=== PATIENT | female | born 1990 | race Two or more races ===

== ENCOUNTER 2016-09-20 16:49 | Emergency (ER) | payer OTHER ==
[~2016-09-20] VITALS: Ht 157.5 cm; Wt 97.7 kg
[2016-09-20] MEDS ORDERED: BENA25CA4 PO (17:12)
[2016-09-20] MEDS ORDERED: ZOFR8TAB PO (17:12)
[2016-09-20] MEDS ORDERED: REGL10TA6 PO (17:12)
[2016-09-20] MEDS ORDERED: IBUP-1022 PO (17:12)
[2016-09-20 18:15] LABS: BASO % 0.5 % (0.0-1.0); EOS # 0.1 K/mm3 (0.0-0.50); EOS % 0.8 % (0.0-3.0); LARGE UNSTAINED CELL # 0.1 K/mm3 (0.0-0.4); LARGE UNSTAINED CELL % 1.4 % (0.0-4.0); LYMPH # 2.3 K/mm3 (1.5-6.5); LYMPH % 24.7 % (24.0-44.0); MEAN CORPUSCULAR HEMOGLOBIN 29.8 pg (27.0-33.0); MEAN CORPUSCULAR HGB CONC 33.5 g/dl (32.0-36.5); MEAN CORPUSCULAR VOLUME 89.1 fl (80.0-96.0); MONO # 0.5 K/mm3 (0.0-0.8); MONO % 6.1 % (0.0-5.0); NEUTROPHILS # 5.9 K/mm3 (1.8-7.7); NEUTROPHILS % 66.5 % (36.0-66.0); PLATELET COUNT, AUTOMATED 291 k/mm3 (150-450); RED CELL DISTRIBUTION WIDTH 12.4 % (11.5-14.5); WHITE BLOOD COUNT 8.8 K/mm3 (4.0-10.0)
[2016-09-20 18:22] LABS: INR 0.85
[2016-09-20 18:41] LABS: ALBUMIN/GLOBULIN RATIO 1.03 (1.00-1.93); ALKALINE PHOSPHATASE 83 U/L (45-117); ALT/SGPT 28 U/L (12-78); ANION GAP 5 MEQ/L (8-16); AST/SGOT 18 U/L (15-37); BILIRUBIN,DIRECT < 0.1 MG/DL (0.0-0.2); BILIRUBIN,TOTAL 0.3 MG/DL (0.2-1.0); BLOOD UREA NITROGEN 7 MG/DL (7-18); CARBON DIOXIDE LEVEL 29 MEQ/L (21-32); CHLORIDE LEVEL 104 MEQ/L (98-107); CREATININE FOR GFR 0.64 MG/DL (0.55-1.02); GLOMERULAR FILTRATION RATE > 60.0 (>60); GLUCOSE, FASTING 86 MG/DL (70-105); POTASSIUM SERUM 3.9 MEQ/L (3.5-5.1); SODIUM LEVEL 138 MEQ/L (136-145); TOTAL PROTEIN 7.9 GM/DL (6.4-8.2)
--- NOTE | 2016-09-20 18:50 | REPUSA ---
HISTORY: NO PRIORS - VOMITING, EVAL FOR SHUNT DISRUPTION. TECHNIQUE: Axial CT imaging of brain without contrast. FINDINGS: Ventricular shunt tube extends to the left lateral ventricle. Over the right frontal cristina varium, there is question of a 1 mm discontinuity of shunt tubing seen on image 23. Clinical correla tion and follow-up is suggested as indicated. The ventricles and sulci are not enlarged. No intracranial mass or mass effect is seen. There is no detectable evidence of hemorrhage, acute infarct, or abnormal extra-axial fluid collection seen. IMPRESSION: 1. The ventricular shunt tube extends to the left lateral ventricle with no intracranial abnormality seen, but there is question of a possible 1 mm disruption of the superficial tubing over the right frontal scalp, calvarium region. Clinical correlation and comparison imaging, and follow- up is suggested as indicated. 2. The remainder of the non-contrast CT examination of the brain is normal.
--- NOTE | 2016-09-20 19:17 | REP ---
SHUNT SERIES: 09/20/2016: No prior study. Clinical history: Vomiting, evaluate for shunt disruption. Findings: There is a right posterior frontal sarah hole with ventriculostomy tube to the midline. It is course under the scalp over the parietal into the occipital region and down posterior lateral right neck coursing anteriorly into the anterior upper chest wall. It appears intact throughout its course. AP supine chest: The shunt tubing courses from the neck base on the right side over the chest wall towards the midline coursing into the region of the right upper quadrant. The lung maddox are well inflated and clear. Cardiomediastinal silhouette and airway were normal. Bones are intact. No free air the diaphragm. Abdomen: Single view shows the right upper quadrant course of the shunt tubing into the pelvis with extra tubing coursing from the left toward the right and ending over the iliac wing on the left. Course of the tubing shows no discontinuity there are a few pelvic phleboliths. Bones are grossly intact. Gas pattern. Limited evaluation due to motion blur. Impression: 1. Negative shunt series for disruption of the shunt from the ventriculostomy tube through the right posterior frontal sarah hole to the distal end of the tubing curved in the pelvis towards the left lower quadrant overlying the iliac bone. No acute finding. Signed by Kuldeep Ferrara MD 09/21/2016 10:49 A
[2016-09-20] MEDS ORDERED: KETOROLAC 30 MG/ML VIAL (J1885) IV ONE (19:30)
[2016-09-20] MEDS ORDERED: METOCLOPRAMIDE INJ 10MG/2ML VIAL (J2765) IV ONE (19:30)
[2016-09-20] MEDS ORDERED: NS 1,000 ML IV ONE (19:30)
[2016-09-20] MEDS ORDERED: diphenhydrAMINE INJ 50MG/ML VIAL (J1200) IV ONE (19:30)
[2016-09-20] MEDS ORDERED: MORPHINE 4 MG/ML 1ML SYRINGE IV PRN (21:45)
[2016-09-20] MEDS ORDERED: TOPIRAMATE (TopAMAX) 25 MG TAB PO ONE (21:45)
[2016-09-20 22:38] VITALS: BP 107/54
[2016-09-20] MEDS ORDERED: TOPA1TAB PO (22:46)
== END 2016-09-20 23:02 | disposition home or self-care (01) ==
LOC: M ED 16:49
DX: R51 Headache (principal); Z88.2 Allergy status to sulfonamides; Z88.8 Allergy status to other drugs, medicaments and biological substances; Z79.899 Other long term (current) drug therapy
CPT/HCPCS: 70450; 75809; 80048; 80076; 83690; 85025; 85610; 85730; 93041; 94760; 96374; 96375; 99285; J1200; J1885; J2765

== ENCOUNTER 2017-06-27 14:44 | Emergency (ER) | payer OTHER ==
[2017-06-27] MEDS: MORPHINE 4 MG/ML 1ML VIAL/SYRINGE (J2270) IV (15:56)
[2017-06-27] MEDS: ONDANSETRON 4MG/2ML VIAL (J2405) IV (15:57)
[2017-06-27 16:09] LABS: BASO # 0.1 10^3/uL (0.0-0.2); BASO % 0.6 % (0.0-1.0); EOS # 0.1 10^3/uL (0.0-0.50); EOS % 1.5 % (0.0-3.0); HEMATOCRIT 39.9 % (36.0-47.0); HEMOGLOBIN 12.9 g/dl (12.0-15.5); IMMATURE GRANULOCYTE % 0.5 % (0-3.0); LYMPH # 2.2 10^3/uL (1.5-6.5); LYMPH % 24.9 % (24.0-44.0); MEAN CORPUSCULAR HEMOGLOBIN 28.2 pg (27.0-33.0); MEAN CORPUSCULAR HGB CONC 32.3 g/dl (32.0-36.5); MEAN CORPUSCULAR VOLUME 87.1 fl (80.0-96.0); MONO # 0.7 10^3/uL (0.0-0.8); MONO % 7.6 % (0.0-5.0); NEUTROPHILS # 5.7 10^3/uL (1.8-7.7); NEUTROPHILS % 64.9 % (36.0-66.0); PLATELET COUNT, AUTOMATED 385 10^3/uL (150-450); RED BLOOD COUNT 4.58 10^6/uL (4.00-5.40); RED CELL DISTRIBUTION WIDTH 13.5 % (11.5-14.5); WHITE BLOOD COUNT 8.7 10^3/uL (4.0-10.0)
[2017-06-27 16:18] LABS: INR 0.94; PROTHROMBIN TIME 12.7 SECONDS (12.4-14.5)
[2017-06-27 16:19] LABS: PARTIAL THROMBOPLASTIN TIME 29.2 SECONDS (26.8-37.9)
[2017-06-27 16:26] LABS: ANION GAP 9 MEQ/L (8-16); BLOOD UREA NITROGEN 10 MG/DL (7-18); CALCIUM LEVEL 8.8 MG/DL (8.5-10.1); CARBON DIOXIDE LEVEL 21 MEQ/L (21-32); CHLORIDE LEVEL 112 MEQ/L (98-107); GLOMERULAR FILTRATION RATE > 60.0 (>60); GLUCOSE, FASTING 80 MG/DL (70-100); POTASSIUM SERUM 4.6 MEQ/L (3.5-5.1); SODIUM LEVEL 142 MEQ/L (136-145)
[2017-06-27] MEDS ORDERED: METOCLOPRAMIDE INJ 10MG/2ML VIAL (J2765) As Ordered (16:40)
[2017-06-27] MEDS: METOCLOPRAMIDE INJ 10MG/2ML VIAL (J2765) IV (16:51)
[2017-06-27] MEDS: KETOROLAC 30 MG/ML VIAL (J1885) IV (16:51)
[2017-06-27] MEDS: predniSONE 20 MG TAB PO (17:30)
== END 2017-06-27 17:38 | disposition home or self-care (01) ==
LOC: M ED 14:44
DX: G44.019 Episodic cluster headache, not intractable (principal); G93.2 Benign intracranial hypertension; Z98.2 Presence of cerebrospinal fluid drainage device; R56.9 Unspecified convulsions; K58.9 Irritable bowel syndrome, unspecified; F32.9 Major depressive disorder, single episode, unspecified; Z79.84 Long term (current) use of oral hypoglycemic drugs; Z79.899 Other long term (current) drug therapy; Z88.2 Allergy status to sulfonamides; Z88.8 Allergy status to other drugs, medicaments and biological substances; Z88.1 Allergy status to other antibiotic agents
CPT/HCPCS: J2270

== ENCOUNTER 2017-07-08 17:28 | Emergency (ER) | payer OTHER, SELFPAY ==
[2017-07-08] MEDS: MORPHINE 4 MG/ML 1ML VIAL/SYRINGE (J2270) IV ×3 (18:32)
[2017-07-08] MEDS: METOCLOPRAMIDE INJ 10MG/2ML VIAL (J2765) IV ×3 (18:33)
[2017-07-08] MEDS: KETOROLAC 30 MG/ML VIAL (J1885) IV ×3 (19:11)
[2017-07-08] MEDS: OXYCODONE/APAP 5MG/325MG(BULK FOR ED) 1 TABLET PO ×3 (20:36)
== END 2017-07-08 20:43 | disposition home or self-care (01) ==
LOC: M ED 17:28
DX: S09.90XA Unspecified injury of head, initial encounter (principal); R51 Headache; W01.10XA Fall on same level from slipping, tripping and stumbling with subsequent striking against unspecified object, initial encounter; Y92.9 Unspecified place or not applicable; Y93.9 Activity, unspecified; Y99.9 Unspecified external cause status; Z98.2 Presence of cerebrospinal fluid drainage device; Z79.899 Other long term (current) drug therapy; Z88.2 Allergy status to sulfonamides; Z88.8 Allergy status to other drugs, medicaments and biological substances; Z88.1 Allergy status to other antibiotic agents
CPT/HCPCS: J2270

== ENCOUNTER 2017-07-09 18:39 | Emergency (ER) | payer OTHER ==
[2017-07-09] MEDS: HYDROmorphone HCL 1 MG/ML SYRINGE (J1170) IV ×4 (19:53→23:07)
[2017-07-09] MEDS: METOCLOPRAMIDE INJ 10MG/2ML VIAL (J2765) IV ×2 (19:54→21:49)
[2017-07-09] MEDS: diphenhydrAMINE INJ 50MG/ML VIAL (J1200) IV ×2 (19:54→21:49)
[2017-07-09] MEDS: KETOROLAC 30 MG/ML VIAL (J1885) IV (19:54)
[2017-07-09 20:02] LABS: BASO % 0.4 % (0.0-1.0); EOS # 0.1 10^3/uL (0.0-0.50); HEMATOCRIT 37.2 % (36.0-47.0); IMMATURE GRANULOCYTE % 0.4 % (0-3.0); LYMPH # 2.2 10^3/uL (1.5-6.5); LYMPH % 20.8 % (24.0-44.0); MEAN CORPUSCULAR HGB CONC 32.3 g/dl (32.0-36.5); MEAN CORPUSCULAR VOLUME 86.9 fl (80.0-96.0); MONO # 0.8 10^3/uL (0.0-0.8); MONO % 7.5 % (0.0-5.0); NEUTROPHILS # 7.5 10^3/uL (1.8-7.7); NEUTROPHILS % 69.9 % (36.0-66.0); PLATELET COUNT, AUTOMATED 387 10^3/uL (150-450); RED BLOOD COUNT 4.28 10^6/uL (4.00-5.40); RED CELL DISTRIBUTION WIDTH 13.3 % (11.5-14.5); WHITE BLOOD COUNT 10.7 10^3/uL (4.0-10.0)
[2017-07-09 20:26] LABS: ANION GAP 7 MEQ/L (8-16); BLOOD UREA NITROGEN 12 MG/DL (7-18); CALCIUM LEVEL 8.7 MG/DL (8.5-10.1); CARBON DIOXIDE LEVEL 22 MEQ/L (21-32); CHLORIDE LEVEL 112 MEQ/L (98-107); CREATININE FOR GFR 0.78 MG/DL (0.55-1.30); GLOMERULAR FILTRATION RATE > 60.0 (>60); GLUCOSE, FASTING 85 MG/DL (70-100); POTASSIUM SERUM 3.7 MEQ/L (3.5-5.1); SODIUM LEVEL 141 MEQ/L (136-145)
[2017-07-09] MEDS ORDERED: HYDROmorphone HCL 1 MG/ML SYRINGE (J1170) As Ordered (21:35)
== END 2017-07-09 23:26 | disposition short-term general hospital (02) ==
LOC: M ED 18:39
DX: R51 Headache (principal); G93.2 Benign intracranial hypertension; Z98.2 Presence of cerebrospinal fluid drainage device; Z79.899 Other long term (current) drug therapy; Z88.1 Allergy status to other antibiotic agents; Z88.2 Allergy status to sulfonamides; Z88.8 Allergy status to other drugs, medicaments and biological substances
CPT/HCPCS: J1170

== ENCOUNTER 2017-07-21 15:38 | Emergency (ER) | payer OTHER ==
[2017-07-21] MEDS: NS 1,000 ML IV (16:15)
[2017-07-21] MEDS: MORPHINE 4 MG/ML 1ML VIAL/SYRINGE (J2270) IV ×2 (16:19→17:29)
[2017-07-21] MEDS: ONDANSETRON 4MG/2ML VIAL (J2405) IV (16:19)
[2017-07-21 16:25] LABS: BASO # 0.1 10^3/uL (0.0-0.2); BASO % 0.7 % (0.0-1.0); EOS # 0.2 10^3/uL (0.0-0.50); EOS % 2.2 % (0.0-3.0); HEMOGLOBIN 12.9 g/dl (12.0-15.5); IMMATURE GRANULOCYTE % 0.3 % (0-3.0); LYMPH # 2.3 10^3/uL (1.5-6.5); LYMPH % 29.3 % (24.0-44.0); MEAN CORPUSCULAR HEMOGLOBIN 27.4 pg (27.0-33.0); MEAN CORPUSCULAR HGB CONC 31.5 g/dl (32.0-36.5); MONO # 0.8 10^3/uL (0.0-0.8); MONO % 10.5 % (0.0-5.0); NEUTROPHILS # 4.4 10^3/uL (1.8-7.7); PLATELET COUNT, AUTOMATED 388 10^3/uL (150-450); RED BLOOD COUNT 4.71 10^6/uL (4.00-5.40); RED CELL DISTRIBUTION WIDTH 13.2 % (11.5-14.5); WHITE BLOOD COUNT 7.7 10^3/uL (4.0-10.0)
[2017-07-21 16:49] LABS: ALBUMIN 4.2 GM/DL (3.2-5.2); ALKALINE PHOSPHATASE 102 U/L (45-117); ALT/SGPT 29 U/L (12-78); ANION GAP 8 MEQ/L (8-16); AST/SGOT 17 U/L (7-37); BILIRUBIN,DIRECT < 0.1 MG/DL (0.0-0.2); BILIRUBIN,TOTAL 0.3 MG/DL (0.2-1.0); BLOOD UREA NITROGEN 11 MG/DL (7-18); CALCIUM LEVEL 8.7 MG/DL (8.5-10.1); CARBON DIOXIDE LEVEL 23 MEQ/L (21-32); CHLORIDE LEVEL 111 MEQ/L (98-107); CREATININE FOR GFR 0.82 MG/DL (0.55-1.30); GLOMERULAR FILTRATION RATE > 60.0 (>60); GLUCOSE, FASTING 84 MG/DL (70-100); LIPASE 249 U/L (73-393); SODIUM LEVEL 142 MEQ/L (136-145); TOTAL PROTEIN 7.7 GM/DL (6.4-8.2)
[2017-07-21] MEDS ORDERED: ISOVUE-370 76% 100ML VIAL (Q9967) As Ordered (16:53)
== END 2017-07-21 18:56 | disposition home or self-care (01) ==
LOC: M ED 15:38
DX: S39.011A Strain of muscle, fascia and tendon of abdomen, initial encounter (principal); X58.XXXA Exposure to other specified factors, initial encounter; Y92.89 Other specified places as the place of occurrence of the external cause; Z98.2 Presence of cerebrospinal fluid drainage device; G93.2 Benign intracranial hypertension; I10 Essential (primary) hypertension; R51 Headache; R56.9 Unspecified convulsions; K58.9 Irritable bowel syndrome, unspecified; E28.2 Polycystic ovarian syndrome; F32.9 Major depressive disorder, single episode, unspecified; Z88.2 Allergy status to sulfonamides; Z88.8 Allergy status to other drugs, medicaments and biological substances; Z79.84 Long term (current) use of oral hypoglycemic drugs; Z79.899 Other long term (current) drug therapy
CPT/HCPCS: J2270

== ENCOUNTER 2017-07-28 18:31 | Emergency (ER) | payer OTHER ==
[2017-07-28 18:25] LABS: KETONE, URINE AUTO RFX NEGATIVE (NEGATIVE); LEUKOCYTE ESTERASE UR AUTO RFX NEGATIVE (NEGATIVE); NITRITE, URINE AUTO RFX NEGATIVE (NEGATIVE); RBC, URINE AUTO RFX 0 /HPF (0-3); SPECIFIC GRAVITY UR AUTO RFX 1.002 (1.002-1.035); SQUAM EPITHELIAL CELL UR AURFX 1 /HPF (0-6); WBC, URINE AUTO RFX 0 /HPF (0-3)
[2017-07-28 18:32] LABS: BASO # 0.1 10^3/uL (0.0-0.2); BASO % 0.4 % (0.0-1.0); EOS % 0.3 % (0.0-3.0); HEMATOCRIT 38.6 % (36.0-47.0); HEMOGLOBIN 12.5 g/dl (12.0-15.5); IMMATURE GRANULOCYTE % 0.5 % (0-3.0); LYMPH # 4.1 10^3/uL (1.5-6.5); LYMPH % 31.7 % (24.0-44.0); MEAN CORPUSCULAR HEMOGLOBIN 27.8 pg (27.0-33.0); MEAN CORPUSCULAR HGB CONC 32.4 g/dl (32.0-36.5); MEAN CORPUSCULAR VOLUME 85.8 fl (80.0-96.0); MONO # 1.2 10^3/uL (0.0-0.8); MONO % 9.2 % (0.0-5.0); NEUTROPHILS # 7.4 10^3/uL (1.8-7.7); NEUTROPHILS % 57.9 % (36.0-66.0); PLATELET COUNT, AUTOMATED 372 10^3/uL (150-450); RED CELL DISTRIBUTION WIDTH 13.3 % (11.5-14.5); WHITE BLOOD COUNT 12.8 10^3/uL (4.0-10.0)
[2017-07-28 18:35] LABS: CONTROL LINE HCG INT CTR LINE PRESENT; HCG, SERUM QUALITATIVE NEGATIVE (NEGATIVE)
[2017-07-28 18:39] LABS: AMPHETAMINES LEVEL URINE NEGATIVE (NEGATIVE); BARBITURATES URINE NEGATIVE (NEGATIVE); BENZODIAZEPINES URINE NEGATIVE (NEGATIVE); CANNABINOIDS URINE NEGATIVE (NEGATIVE); COCAINE METABOLITE URINE NEGATIVE (NEGATIVE); METHADONE URINE NEGATIVE (NEGATIVE); OPIATES URINE NEGATIVE (NEGATIVE); PHENCYCLIDINE URINE NEGATIVE (NEGATIVE)
[2017-07-28] MEDS: KETOROLAC 30 MG/ML VIAL (J1885) IV (18:52)
[2017-07-28] MEDS: diphenhydrAMINE INJ 50MG/ML VIAL (J1200) IV (18:52)
[2017-07-28] MEDS: NS 1,000 ML IV (18:52)
[2017-07-28] MEDS: METOCLOPRAMIDE INJ 10MG/2ML VIAL (J2765) IV (18:52)
[2017-07-28] MEDS: LORazepam 2 MG/ML VIAL (J2060) IV (19:42)
[2017-07-28 20:52] LABS: ACETAMINOPHEN LEVEL < 2.0 UG/ML (10.0-30.0); ALBUMIN 3.7 GM/DL (3.2-5.2); ALBUMIN/GLOBULIN RATIO 1.19 (1.00-1.93); ALKALINE PHOSPHATASE 92 U/L (45-117); ALT/SGPT 73 U/L (12-78); ANION GAP 8 MEQ/L (8-16); AST/SGOT 31 U/L (7-37); BILIRUBIN,DIRECT < 0.1 MG/DL (0.0-0.2); BILIRUBIN,TOTAL 0.2 MG/DL (0.2-1.0); BLOOD UREA NITROGEN 13 MG/DL (7-18); CALCIUM LEVEL 8.3 MG/DL (8.5-10.1); CARBON DIOXIDE LEVEL 23 MEQ/L (21-32); CHLORIDE LEVEL 113 MEQ/L (98-107); CREATININE FOR GFR 0.76 MG/DL (0.55-1.30); ETHYL ALCOHOL (ETHANOL) < 0.003 % (0.000-0.010); GLOMERULAR FILTRATION RATE > 60.0 (>60); GLUCOSE, FASTING 77 MG/DL (70-100); POTASSIUM SERUM 3.7 MEQ/L (3.5-5.1); SALICYLATE LEVEL < 1.7 MG/DL (5.0-30.0); SODIUM LEVEL 144 MEQ/L (136-145); TOTAL PROTEIN 6.8 GM/DL (6.4-8.2)
[2017-07-28] MEDS: NORCO, ANEXSIA 5/325MG TABLET (HYDROcodone/ACETAMINOPHEN) PO (21:42)
[2017-07-28] MEDS: AUGMENTIN 875 MG TAB PO (21:42)
== END 2017-07-28 21:44 | disposition home or self-care (01) ==
LOC: M ED 18:31
DX: R51 Headache (principal); H92.09 Otalgia, unspecified ear; Z98.2 Presence of cerebrospinal fluid drainage device; Z88.2 Allergy status to sulfonamides; Z88.8 Allergy status to other drugs, medicaments and biological substances; Z79.899 Other long term (current) drug therapy; Z79.84 Long term (current) use of oral hypoglycemic drugs
CPT/HCPCS: J1200

== ENCOUNTER 2017-09-05 16:55 | Emergency (ER) | payer OTHER ==
[2017-09-05] MEDS: ONDANSETRON 4MG/2ML VIAL (J2405) IV (17:58)
[2017-09-05] MEDS: MORPHINE 4 MG/ML 1ML VIAL/SYRINGE (J2270) IV (17:58)
[2017-09-05 18:28] LABS: APPEARANCE, URINE CLEAR (CLEAR); BACTERIA, URINE AUTO 1+ (NEGATIVE); BILIRUBIN, URINE AUTO NEGATIVE (NEGATIVE); BLOOD, URINE BLOOD NEGATIVE (NEGATIVE); COLOR, URINE YELLOW (YELLOW); GLUCOSE, URINE (UA) AUTO NEGATIVE (NEGATIVE); KETONE, URINE AUTO NEGATIVE (NEGATIVE); LEUKOCYTE ESTERASE, URINE AUTO NEGATIVE (NEGATIVE); MUCUS, URINE SMALL (NEGATIVE); NITRITE, URINE AUTO NEGATIVE (NEGATIVE); PROTEIN, URINE AUTO NEGATIVE (NEGATIVE); RBC, URINE AUTO 3 /HPF (0-3); SQUAMOUS EPITHELIAL CELL UR AU 6 /HPF (0-6); UROBILINOGEN, URINE AUTO 0.2 mg/dL (0.0-2.0); WBC, URINE AUTO 2 /HPF (0-3)
[2017-09-05] MEDS: HYDROmorphone HCL 1 MG/ML SYRINGE (J1170) IV (18:51)
[2017-09-05 19:07] LABS: ALBUMIN 3.2 GM/DL (3.2-5.2); ALBUMIN/GLOBULIN RATIO 0.84 (1.00-1.93); ALKALINE PHOSPHATASE 67 U/L (45-117); ALT/SGPT 42 U/L (12-78); ANION GAP 10 MEQ/L (8-16); AST/SGOT 22 U/L (7-37); BILIRUBIN,DIRECT < 0.1 MG/DL (0.0-0.2); BILIRUBIN,TOTAL 0.2 MG/DL (0.2-1.0); BLOOD UREA NITROGEN 12 MG/DL (7-18); C REACTIVE PROTEIN QUANTITATIV 0.48 MG/DL (0.00-0.30); CALCIUM LEVEL 8.4 MG/DL (8.5-10.1); CARBON DIOXIDE LEVEL 21 MEQ/L (21-32); CHLORIDE LEVEL 108 MEQ/L (98-107); CREATININE FOR GFR 0.77 MG/DL (0.55-1.30); GLOMERULAR FILTRATION RATE > 60.0 (>60); GLUCOSE, FASTING 83 MG/DL (70-100); LIPASE 182 U/L (73-393); SODIUM LEVEL 139 MEQ/L (136-145)
[2017-09-05 19:18] LABS: BASO # 0.1 10^3/uL (0.0-0.2); BASO % 0.7 % (0.0-1.0); EOS # 0.1 10^3/uL (0.0-0.50); EOS % 1.7 % (0.0-3.0); HEMATOCRIT 35.2 % (36.0-47.0); HEMOGLOBIN 11.2 g/dl (12.0-15.5); IMMATURE GRANULOCYTE % 0.4 % (0-3.0); LYMPH # 2.5 10^3/uL (1.5-6.5); MEAN CORPUSCULAR HEMOGLOBIN 27.3 pg (27.0-33.0); MEAN CORPUSCULAR HGB CONC 31.8 g/dl (32.0-36.5); MEAN CORPUSCULAR VOLUME 85.6 fl (80.0-96.0); MONO % 11.2 % (0.0-5.0); NEUTROPHILS # 4.8 10^3/uL (1.8-7.7); PLATELET COUNT, AUTOMATED 341 10^3/uL (150-450); RED BLOOD COUNT 4.11 10^6/uL (4.00-5.40); RED CELL DISTRIBUTION WIDTH 13.4 % (11.5-14.5); WHITE BLOOD COUNT 8.5 10^3/uL (4.0-10.0)
[2017-09-05] MEDS: KETOROLAC 30 MG/ML VIAL (J1885) IV (19:32)
[2017-09-05] MEDS: METOCLOPRAMIDE INJ 10MG/2ML VIAL (J2765) IV (20:02)
[2017-09-05] MEDS: diphenhydrAMINE INJ 50MG/ML VIAL (J1200) IV (20:02)
== END 2017-09-05 21:14 | disposition home or self-care (01) ==
LOC: M ED 16:55
DX: R51 Headache (principal); R10.11 Right upper quadrant pain; R10.31 Right lower quadrant pain; Z98.2 Presence of cerebrospinal fluid drainage device; G40.909 Epilepsy, unspecified, not intractable, without status epilepticus; E28.2 Polycystic ovarian syndrome; F41.9 Anxiety disorder, unspecified; F32.9 Major depressive disorder, single episode, unspecified; K58.9 Irritable bowel syndrome, unspecified; Z88.2 Allergy status to sulfonamides; Z88.8 Allergy status to other drugs, medicaments and biological substances; Z79.899 Other long term (current) drug therapy; Z79.84 Long term (current) use of oral hypoglycemic drugs
CPT/HCPCS: J1170

== ENCOUNTER 2017-09-08 13:26 | Emergency (ER) | payer OTHER ==
[2017-09-08] MEDS: NS 1,000 ML IV ×2 (14:28)
[2017-09-08] MEDS: MORPHINE 2 MG/ML 1ML SYRINGE (J2270) IV ×2 (14:29)
[2017-09-08 14:35] LABS: BASO # 0.1 10^3/uL (0.0-0.2); BASO % 0.6 % (0.0-1.0); EOS # 0.1 10^3/uL (0.0-0.50); EOS % 1.1 % (0.0-3.0); HEMOGLOBIN 11.4 g/dl (12.0-15.5); IMMATURE GRANULOCYTE % 0.3 % (0-3.0); LYMPH # 3.4 10^3/uL (1.5-6.5); LYMPH % 35.8 % (24.0-44.0); MEAN CORPUSCULAR HEMOGLOBIN 27.3 pg (27.0-33.0); MEAN CORPUSCULAR HGB CONC 31.7 g/dl (32.0-36.5); MEAN CORPUSCULAR VOLUME 86.1 fl (80.0-96.0); MONO % 10.3 % (0.0-5.0); NEUTROPHILS # 4.9 10^3/uL (1.8-7.7); NEUTROPHILS % 51.9 % (36.0-66.0); PLATELET COUNT, AUTOMATED 378 10^3/uL (150-450); RED BLOOD COUNT 4.18 10^6/uL (4.00-5.40); RED CELL DISTRIBUTION WIDTH 13.6 % (11.5-14.5); WHITE BLOOD COUNT 9.4 10^3/uL (4.0-10.0)
[2017-09-08 14:50] LABS: CONTROL LINE HCG INT CTR LINE PRESENT; HCG, SERUM QUALITATIVE NEGATIVE (NEGATIVE)
[2017-09-08 14:51] LABS: ANION GAP 7 MEQ/L (8-16); BLOOD UREA NITROGEN 10 MG/DL (7-18); C REACTIVE PROTEIN QUANTITATIV 0.32 MG/DL (0.00-0.30); CALCIUM LEVEL 8.3 MG/DL (8.5-10.1); CARBON DIOXIDE LEVEL 22 MEQ/L (21-32); CHLORIDE LEVEL 111 MEQ/L (98-107); CREATININE FOR GFR 0.81 MG/DL (0.55-1.30); GLOMERULAR FILTRATION RATE > 60.0 (>60); GLUCOSE, FASTING 84 MG/DL (70-100); POTASSIUM SERUM 3.6 MEQ/L (3.5-5.1); SODIUM LEVEL 140 MEQ/L (136-145)
[2017-09-08] MEDS: ONDANSETRON 4MG/2ML VIAL (J2405) IV ×2 (15:18)
[2017-09-08] MEDS: HYDROMORPHONE HCL 0.5 MG/ 0.5 ML SYRINGE (J1170 PER 1) IV ×2 (15:20)
== END 2017-09-08 16:00 | disposition home or self-care (01) ==
LOC: M ED 13:26
DX: G89.18 Other acute postprocedural pain (principal); E28.2 Polycystic ovarian syndrome; G93.2 Benign intracranial hypertension; Z79.899 Other long term (current) drug therapy; Z88.2 Allergy status to sulfonamides; Z88.8 Allergy status to other drugs, medicaments and biological substances
CPT/HCPCS: J2405

== ENCOUNTER 2017-09-16 00:22 | Emergency (ER) | payer OTHER ==
[2017-09-16] MEDS: NS 1,000 ML IV (01:15)
[2017-09-16] MEDS: ONDANSETRON 4MG/2ML VIAL (J2405) IV (02:00)
[2017-09-16] MEDS ORDERED: METAL LOCK LOOP XX (02:09)
[2017-09-16] MEDS: MORPHINE 4 MG/ML 1ML VIAL/SYRINGE (J2270) IV ×3 (02:10→04:18)
[2017-09-16 02:31] LABS: BASO % 0.5 % (0.0-1.0); EOS # 0.2 10^3/uL (0.0-0.50); HEMATOCRIT 39.1 % (36.0-47.0); HEMOGLOBIN 12.4 g/dl (12.0-15.5); IMMATURE GRANULOCYTE % 0.3 % (0-3.0); LYMPH # 3.1 10^3/uL (1.5-6.5); MEAN CORPUSCULAR HEMOGLOBIN 27.1 pg (27.0-33.0); MEAN CORPUSCULAR HGB CONC 31.7 g/dl (32.0-36.5); MEAN CORPUSCULAR VOLUME 85.4 fl (80.0-96.0); MONO # 0.7 10^3/uL (0.0-0.8); NEUTROPHILS # 4.8 10^3/uL (1.8-7.7); NEUTROPHILS % 54.2 % (36.0-66.0); PLATELET COUNT, AUTOMATED 451 10^3/uL (150-450); RED BLOOD COUNT 4.58 10^6/uL (4.00-5.40); RED CELL DISTRIBUTION WIDTH 13.8 % (11.5-14.5); WHITE BLOOD COUNT 8.8 10^3/uL (4.0-10.0)
[2017-09-16 02:55] LABS: CONTROL LINE HCG INT CTR LINE PRESENT; HCG, SERUM QUALITATIVE NEGATIVE (NEGATIVE)
[2017-09-16] MEDS ORDERED: ISOVUE-370 76% 100ML VIAL (Q9967) As Ordered (02:56)
[2017-09-16 02:58] LABS: ALBUMIN/GLOBULIN RATIO 1.14 (1.00-1.93); ALKALINE PHOSPHATASE 80 U/L (45-117); ALT/SGPT 36 U/L (12-78); ANION GAP 9 MEQ/L (8-16); AST/SGOT 20 U/L (7-37); BILIRUBIN,DIRECT < 0.1 MG/DL (0.0-0.2); BILIRUBIN,TOTAL 0.2 MG/DL (0.2-1.0); BLOOD UREA NITROGEN 13 MG/DL (7-18); CALCIUM LEVEL 8.6 MG/DL (8.5-10.1); CARBON DIOXIDE LEVEL 23 MEQ/L (21-32); CHLORIDE LEVEL 109 MEQ/L (98-107); CREATININE FOR GFR 0.81 MG/DL (0.55-1.30); GLOMERULAR FILTRATION RATE > 60.0 (>60); GLUCOSE, FASTING 86 MG/DL (70-100); LIPASE 328 U/L (73-393); SODIUM LEVEL 141 MEQ/L (136-145); TOTAL PROTEIN 7.5 GM/DL (6.4-8.2)
[2017-09-16] MEDS: METOCLOPRAMIDE 10 MG TAB PO (06:21)
[2017-09-16] MEDS: OXYCODONE/APAP 5MG/325MG(BULK FOR ED) 1 TABLET PO (06:21)
== END 2017-09-16 06:26 | disposition home or self-care (01) ==
LOC: M ED 00:22
DX: R10.9 Unspecified abdominal pain (principal); Z98.890 Other specified postprocedural states; G93.2 Benign intracranial hypertension; Z98.2 Presence of cerebrospinal fluid drainage device; Z79.899 Other long term (current) drug therapy; Z88.1 Allergy status to other antibiotic agents; Z88.2 Allergy status to sulfonamides; Z88.8 Allergy status to other drugs, medicaments and biological substances
CPT/HCPCS: J2270

== ENCOUNTER 2017-09-19 16:59 | Emergency (ER) | payer OTHER ==
[2017-09-19 19:53] LABS: BASO # 0.1 10^3/uL (0.0-0.2); BASO % 0.6 % (0.0-1.0); EOS # 0.1 10^3/uL (0.0-0.50); EOS % 0.9 % (0.0-3.0); HEMOGLOBIN 12.2 g/dl (12.0-15.5); IMMATURE GRANULOCYTE % 0.4 % (0-3.0); LYMPH % 22.2 % (24.0-44.0); MEAN CORPUSCULAR HEMOGLOBIN 27.3 pg (27.0-33.0); MEAN CORPUSCULAR HGB CONC 32.1 g/dl (32.0-36.5); MONO # 0.5 10^3/uL (0.0-0.8); MONO % 5.8 % (0.0-5.0); NEUTROPHILS # 6.3 10^3/uL (1.8-7.7); NEUTROPHILS % 70.1 % (36.0-66.0); PLATELET COUNT, AUTOMATED 422 10^3/uL (150-450); RED BLOOD COUNT 4.47 10^6/uL (4.00-5.40); RED CELL DISTRIBUTION WIDTH 13.8 % (11.5-14.5)
[2017-09-19] MEDS: TRIMETHOBENZAMIDE HCL INJ 200 MG/2 ML VIAL (J3250) IM (19:55)
[2017-09-19] MEDS: KETOROLAC 30 MG/ML VIAL (J1885) IV (19:55)
[2017-09-19 19:58] LABS: APPEARANCE, URINE HAZY (CLEAR); BACTERIA, URINE AUTO NEGATIVE (NEGATIVE); BILIRUBIN, URINE AUTO NEGATIVE (NEGATIVE); BLOOD, URINE BLOOD NEGATIVE (NEGATIVE); CALCIUM OXALATE CRYSTALS LARGE; COLOR, URINE YELLOW (YELLOW); GLUCOSE, URINE (UA) AUTO NEGATIVE (NEGATIVE); KETONE, URINE AUTO NEGATIVE (NEGATIVE); LEUKOCYTE ESTERASE, URINE AUTO NEGATIVE (NEGATIVE); MUCUS, URINE SMALL (NEGATIVE); NITRITE, URINE AUTO NEGATIVE (NEGATIVE); PROTEIN, URINE AUTO NEGATIVE (NEGATIVE); RBC, URINE AUTO 1 /HPF (0-3); SPECIFIC GRAVITY URINE AUTO 1.026 (1.002-1.035); SQUAMOUS EPITHELIAL CELL UR AU 3 /HPF (0-6); UROBILINOGEN, URINE AUTO 0.2 mg/dL (0.0-2.0); WBC, URINE AUTO 11 /HPF (0-3)
[2017-09-19 20:47] LABS: ANION GAP 5 MEQ/L (8-16); BLOOD UREA NITROGEN 17 MG/DL (7-18); CALCIUM LEVEL 8.5 MG/DL (8.5-10.1); CARBON DIOXIDE LEVEL 25 MEQ/L (21-32); CHLORIDE LEVEL 110 MEQ/L (98-107); CREATININE FOR GFR 0.81 MG/DL (0.55-1.30); GLOMERULAR FILTRATION RATE > 60.0 (>60); GLUCOSE, FASTING 85 MG/DL (70-100); SODIUM LEVEL 140 MEQ/L (136-145)
[2017-09-19] MEDS: PERCOCET 5MG/325MG TAB PO (21:10)
== END 2017-09-19 21:18 | disposition home or self-care (01) ==
LOC: M ED 16:59
DX: R10.84 Generalized abdominal pain (principal); R11.2 Nausea with vomiting, unspecified; R56.9 Unspecified convulsions; Z98.2 Presence of cerebrospinal fluid drainage device; Z79.899 Other long term (current) drug therapy; Z88.1 Allergy status to other antibiotic agents; Z88.2 Allergy status to sulfonamides; Z88.8 Allergy status to other drugs, medicaments and biological substances
CPT/HCPCS: J1885

== ENCOUNTER 2017-10-29 15:29 | Emergency (ER) | payer OTHER ==
[2017-10-29 16:50] LABS: BASO # 0.1 10^3/uL (0.0-0.2); BASO % 0.6 % (0.0-1.0); EOS # 0.1 10^3/uL (0.0-0.50); HEMATOCRIT 38.8 % (36.0-47.0); HEMOGLOBIN 12.5 g/dl (12.0-15.5); IMMATURE GRANULOCYTE % 0.2 % (0-3.0); LYMPH # 1.7 10^3/uL (1.5-6.5); LYMPH % 20.4 % (24.0-44.0); MEAN CORPUSCULAR HEMOGLOBIN 28.1 pg (27.0-33.0); MEAN CORPUSCULAR HGB CONC 32.2 g/dl (32.0-36.5); MEAN CORPUSCULAR VOLUME 87.2 fl (80.0-96.0); MONO # 0.7 10^3/uL (0.0-0.8); MONO % 8.1 % (0.0-5.0); NEUTROPHILS # 5.8 10^3/uL (1.8-7.7); NEUTROPHILS % 69.7 % (36.0-66.0); PLATELET COUNT, AUTOMATED 416 10^3/uL (150-450); RED BLOOD COUNT 4.45 10^6/uL (4.00-5.40); RED CELL DISTRIBUTION WIDTH 14.6 % (11.5-14.5); WHITE BLOOD COUNT 8.3 10^3/uL (4.0-10.0)
[2017-10-29] MEDS: NS 1,000 ML IV (16:56)
[2017-10-29] MEDS: METOCLOPRAMIDE INJ 10MG/2ML VIAL (J2765) IV (16:56)
[2017-10-29] MEDS: KETOROLAC 30 MG/ML VIAL (J1885) IV (16:57)
[2017-10-29 17:18] LABS: ALBUMIN/GLOBULIN RATIO 1.14 (1.00-1.93); ALKALINE PHOSPHATASE 67 U/L (45-117); ALT/SGPT 43 U/L (12-78); ANION GAP 8 MEQ/L (8-16); AST/SGOT 16 U/L (7-37); BILIRUBIN,DIRECT < 0.1 MG/DL (0.0-0.2); BILIRUBIN,TOTAL 0.2 MG/DL (0.2-1.0); BLOOD UREA NITROGEN 9 MG/DL (7-18); CALCIUM LEVEL 9.1 MG/DL (8.5-10.1); CARBON DIOXIDE LEVEL 24 MEQ/L (21-32); CHLORIDE LEVEL 110 MEQ/L (98-107); CREATININE FOR GFR 0.86 MG/DL (0.55-1.30); GLOMERULAR FILTRATION RATE > 60.0 (>60); GLUCOSE, FASTING 88 MG/DL (70-100); LIPASE 422 U/L (73-393); POTASSIUM SERUM 4.1 MEQ/L (3.5-5.1); SODIUM LEVEL 142 MEQ/L (136-145); TOTAL PROTEIN 7.5 GM/DL (6.4-8.2)
== END 2017-10-29 17:45 | disposition home or self-care (01) ==
LOC: M ED 15:29
DX: R10.84 Generalized abdominal pain (principal); K58.9 Irritable bowel syndrome, unspecified; Z79.899 Other long term (current) drug therapy; Z88.2 Allergy status to sulfonamides; Z88.1 Allergy status to other antibiotic agents; Z88.8 Allergy status to other drugs, medicaments and biological substances
CPT/HCPCS: J1885

== ENCOUNTER → 2018-01-05 | Outpatient (CLI) | payer OTHER | LOC: M RAD 08:01 | DX: G93.2 Benign intracranial hypertension (principal); Z98.2 Presence of cerebrospinal fluid drainage device | CPT/HCPCS: 70551 ==

== ENCOUNTER → 2018-01-14 | Outpatient (REF) | payer OTHER ==
[2018-01-14 11:56] LABS: BASO % 0.8 % (0.0-1.0); EOS # 0.1 10^3/uL (0.0-0.50); EOS % 1.5 % (0.0-3.0); HEMATOCRIT 38.3 % (36.0-47.0); HEMOGLOBIN 11.9 g/dl (12.0-15.5); IMMATURE GRANULOCYTE % 0.2 % (0-3.0); LYMPH # 1.6 10^3/uL (1.5-6.5); LYMPH % 32.2 % (24.0-44.0); MEAN CORPUSCULAR HEMOGLOBIN 27.9 pg (27.0-33.0); MEAN CORPUSCULAR HGB CONC 31.1 g/dl (32.0-36.5); MEAN CORPUSCULAR VOLUME 89.9 fl (80.0-96.0); MONO # 0.4 10^3/uL (0.0-0.8); MONO % 7.7 % (0.0-5.0); NEUTROPHILS # 2.8 10^3/uL (1.8-7.7); NEUTROPHILS % 57.6 % (36.0-66.0); PLATELET COUNT, AUTOMATED 451 10^3/uL (150-450); RED BLOOD COUNT 4.26 10^6/uL (4.00-5.40); RED CELL DISTRIBUTION WIDTH 14.2 % (11.5-14.5); WHITE BLOOD COUNT 4.8 10^3/uL (4.0-10.0)
[2018-01-14 12:28] LABS: ALBUMIN 3.7 GM/DL (3.2-5.2); ALBUMIN/GLOBULIN RATIO 1.03 (1.00-1.93); ALKALINE PHOSPHATASE 74 U/L (45-117); ALT/SGPT 25 U/L (12-78); ANION GAP 9 MEQ/L (8-16); AST/SGOT 17 U/L (7-37); BILIRUBIN,TOTAL 0.2 MG/DL (0.2-1.0); BLOOD UREA NITROGEN 9 MG/DL (7-18); C REACTIVE PROTEIN QUANTITATIV < 0.30 MG/DL (0.00-0.30); CALCIUM LEVEL 8.8 MG/DL (8.5-10.1); CARBON DIOXIDE LEVEL 24 MEQ/L (21-32); CHLORIDE LEVEL 107 MEQ/L (98-107); CREATININE FOR GFR 0.71 MG/DL (0.55-1.30); GLOMERULAR FILTRATION RATE > 60.0 (>60); GLUCOSE, FASTING 93 MG/DL (70-100); POTASSIUM SERUM 4.4 MEQ/L (3.5-5.1); SODIUM LEVEL 140 MEQ/L (136-145); TOTAL PROTEIN 7.3 GM/DL (6.4-8.2)
[2018-01-14 12:41] LABS: ERYTHROCYTE SEDIMENTATION RATE 11 mm/hr (0-20)
== END ==
LOC: M SFHCPLAZ 10:20
DX: R50.9 Fever, unspecified (principal)

== ENCOUNTER → 2018-01-29 | Outpatient (CLI) | payer OTHER ==
[~2018-01-29] MED LIST: GASTROGRAFIN SOLUTION 30ML (Q9963) As Ordered; ISOVUE-370 76% 100ML VIAL (Q9967) As Ordered
== END ==
LOC: M RAD 14:22
DX: R50.9 Fever, unspecified (principal); N83.202 Unspecified ovarian cyst, left side; T85.698A Other mechanical complication of other specified internal prosthetic devices, implants and grafts, initial encounter; Y84.9 Medical procedure, unspecified as the cause of abnormal reaction of the patient, or of later complication, without mention of misadventure at the time of the procedure
CPT/HCPCS: Q9963

== ENCOUNTER 2018-02-09 14:56 | Emergency (ER) | payer OTHER ==
[2018-02-09] MEDS: PROMETHAZINE INJ 25 MG/ML VIAL (J2550) IM (16:24)
[2018-02-09] MEDS: ACETAMINOPHEN TAB 650MG DOSE (2X325MG) PO (16:45)
[2018-02-09] MEDS: ONDANSETRON 4 MG ORAL DISINTEGRATING TAB (Q0162 PER 1MG) PO (17:42)
[2018-02-09] MEDS: PERCOCET 5MG/325MG TAB PO (17:42)
== END 2018-02-09 18:00 | disposition home or self-care (01) ==
LOC: M ED 14:56
DX: S00.93XA Contusion of unspecified part of head, initial encounter (principal); W19.XXXA Unspecified fall, initial encounter; Y92.099 Unspecified place in other non-institutional residence as the place of occurrence of the external cause; Y93.9 Activity, unspecified; Y99.9 Unspecified external cause status; Z98.2 Presence of cerebrospinal fluid drainage device; Z79.899 Other long term (current) drug therapy; Z88.2 Allergy status to sulfonamides; Z88.1 Allergy status to other antibiotic agents; Z88.8 Allergy status to other drugs, medicaments and biological substances
CPT/HCPCS: Q0162

== ENCOUNTER → 2018-02-21 | Outpatient (CLI) | payer OTHER ==
[~2018-02-21] MED LIST changes: +ACET30TAB PO; +ASAC800T3 PO; +AUGM875T28 PO; +BENA25CA4 PO; +BUSP5TA; +CIPR500T19 PO; +CIPR5SUS PO; +CLIN150C14 PO; +CYCL10TA; +FLUO20CA19 PO; +GABA-845 PO; -GASTROGRAFIN SOLUTION 30ML (Q9963) As Ordered; +HYDR50TA70 PO; +IBUP-1022 PO; +IBUP200T45; -ISOVUE-370 76% 100ML VIAL (Q9967) As Ordered; +KETO10TAB PO; +METF750T PO; +MIDAZOLAM INJ 2 MG/2 ML VIAL (J2250) As Ordered ONE; +NORC1TAB4 PO; +NORC7.5T35 PO; +NORCOTAB PO; +PRED20TA PO; +PROZ40CA; +PROZ40CA PO; +REGL10TA6 PO; +TIGA300C2 PO; +TOPA100T12 PO; +TOPA1TAB PO; +TOPA200T7 PO; +TOPI100T9 PO; +ZOFR8TAB24 PO; +[UNRECOGNIZED DRUG - MIXTURE] PO; +fentaNYL 100 MCG/2 ML INJECTION (J3010) As Ordered ONE
[2018-02-21 13:23] LABS: CSF TUBE# GLU TUBE 3; CSF TUBE# TP TUBE 3; GLUCOSE CSF 50 MG/DL (40-75); TOTAL PROTEIN,CSF 80 MG/DL (15-45)
[2018-02-21 13:28] LABS: APPEARANCE, CSF CLEAR (CLEAR); COLOR, CSF COLORLESS (COLORLESS); CSF TUBE# CELL CNT TUBE 4
[2018-02-21 15:00] VITALS: BP 139/90
--- NOTE | 2018-02-21 16:31 | REP ---
Procedure: Fluoro guidance for lumbar puncture. History: Fever, Pseudotumor Cerebri The procedure was performed under the direct supervision of Dr. Birmingham. The procedure was performed with anesthesia present for sedation and pain control. The risks and benefits of the procedure were explained to the patient and informed consent was obtained. The L3-4 interspace was localized using fluoroscopic guidance. The skin was prepped and draped in a sterile fashion. 1% lidocaine was used as a local anesthetic. Using fluoroscopic guidance a 22-gauge spinal needle was inserted and advanced into the thecal sac. Opening pressure measured 20 cm of water. 12 ml of spinal fluid was withdrawn and sent to lab. The patient tolerated the procedure well and there were no immediate complications. 0.1 minutes of fluoro time was utilized for this procedure. Reviewed by SALOMÓN St 02/21/2018 04:07 P Electronically Signed by Maxwell Birmingham MD 02/21/2018 04:23 P
[2018-02-26 00:06] LABS: CRYPTOCOCCUS ANTIGEN CSF Negative (Negative); MYELIN BASIC PROTEIN, CSF 5.4 ng/mL (0.0-1.2)
== END ==
LOC: M RADPRO 11:03
PROVIDERS: ATTEND Internal Medicine Infectious Disease
DX: R50.9 Fever, unspecified (principal); G93.2 Benign intracranial hypertension; Z98.2 Presence of cerebrospinal fluid drainage device; A09 Infectious gastroenteritis and colitis, unspecified; Z79.84 Long term (current) use of oral hypoglycemic drugs; Z79.899 Other long term (current) drug therapy; Z88.8 Allergy status to other drugs, medicaments and biological substances; Z88.2 Allergy status to sulfonamides; Z88.1 Allergy status to other antibiotic agents; Z98.890 Other specified postprocedural states
CPT/HCPCS: 62270; 77002; 82945; 83873; 84157; 86592; 87070; 87102; 87116; 87205; 87206; 87483; 87899; 89051; 99156; 99157; J2250; J3010

== ENCOUNTER 2018-03-28 01:54 | Emergency (ER) | payer OTHER ==
[~2018-03-28] VITALS: Ht 157.5 cm; Wt 100.0 kg
[~2018-03-28 01:54] MED LIST changes: -MIDAZOLAM INJ 2 MG/2 ML VIAL (J2250) As Ordered ONE; -fentaNYL 100 MCG/2 ML INJECTION (J3010) As Ordered ONE
[2018-03-28] MEDS ORDERED: MAGN400T (02:04)
[2018-03-28] MEDS ORDERED: PROM25TA22 (02:04)
[2018-03-28] MEDS ORDERED: AMIT10TA (02:04)
[2018-03-28] MEDS ORDERED: TRAZ-160 (02:04)
[2018-03-28] MEDS ORDERED: NS 1,000 ML IV SCH (02:30)
[2018-03-28] MEDS ORDERED: METOCLOPRAMIDE INJ 10MG/2ML VIAL (J2765) IV ONE (02:30)
[2018-03-28 02:53] LABS: BASO # 0.1 10^3/uL (0.0-0.2); BASO % 0.7 % (0.0-1.0); EOS # 0.2 10^3/uL (0.0-0.50); EOS % 2.4 % (0.0-3.0); HEMATOCRIT 41.8 % (36.0-47.0); HEMOGLOBIN 13.1 g/dl (12.0-15.5); LYMPH # 2.9 10^3/uL (1.5-6.5); LYMPH % 40.3 % (24.0-44.0); MEAN CORPUSCULAR HGB CONC 31.3 g/dl (32.0-36.5); MEAN CORPUSCULAR VOLUME 92.7 fl (80.0-96.0); MONO # 0.6 10^3/uL (0.0-0.8); MONO % 8.4 % (0.0-5.0); NEUTROPHILS # 3.4 10^3/uL (1.8-7.7); NEUTROPHILS % 47.8 % (36.0-66.0); PLATELET COUNT, AUTOMATED 321 10^3/uL (150-450); RED BLOOD COUNT 4.51 10^6/uL (4.00-5.40); WHITE BLOOD COUNT 7.2 10^3/uL (4.0-10.0)
[2018-03-28 03:15] LABS: ALT/SGPT 42 U/L (12-78); BILIRUBIN,DIRECT < 0.1 MG/DL (0.0-0.2); BILIRUBIN,TOTAL 0.2 MG/DL (0.2-1.0); BLOOD UREA NITROGEN 12 MG/DL (7-18); CALCIUM LEVEL 8.6 MG/DL (8.5-10.1); CARBON DIOXIDE LEVEL 22 MEQ/L (21-32); CHLORIDE LEVEL 106 MEQ/L (98-107); CREATININE FOR GFR 0.73 MG/DL (0.55-1.30); GLOMERULAR FILTRATION RATE > 60.0 (>60); GLUCOSE, FASTING 86 MG/DL (70-100); LIPASE 270 U/L (73-393); POTASSIUM SERUM 3.5 MEQ/L (3.5-5.1); SODIUM LEVEL 141 MEQ/L (136-145); TOTAL PROTEIN 7.4 GM/DL (6.4-8.2)
[2018-03-28 03:17] LABS: HCG, SERUM QUALITATIVE NEGATIVE (NEGATIVE)
[2018-03-28] MEDS ORDERED: KETOROLAC 30 MG/ML VIAL (J1885) IV ONE (03:30)
--- NOTE | 2018-03-28 03:32 | REPVR ---
EXAM: CT Head Without Contrast EXAM DATE/TIME: 03/28/18 (2:29am) CLINICAL HISTORY: 27 year old female with headache, pain. V-P shunt. TECHNIQUE: Axial computed tomography images of the head without contrast. All CT scans at this facility use at least one of these dose optimization techniques: automated exposure control; mA and/or kV adjustment per patient size (includes targeted exams where dose is matched to clinical indication); or iterative reconstruction. COMPARISON: CT HEAD of 02/09/18 FINDINGS: Brain: No acute hemorrhage. No significant white matter disease. No cerebral edema. V-P shunt tube again seen, entering via the right frontal region. Tip of the shunt tube lies to the left of the left frontal horn of the lateral ventricle (unchanged position). Ventricles: No ventriculomegaly. No change from 6 weeks ago. Bones/joints: Normal. No acute fracture. Sinuses: Normal as visualized. No acute sinusitis. Mastoid air cells: Normal as visualized. No mastoid effusion. Soft tissues: Normal. IMPRESSION: No acute intracranial pathology is appreciated. Stable position of V-P shunt tube. No hydrocephalus. In general, similar findings were noted 6 weeks ago. Electronically signed by: Kaye Judge On 03/28/2018 03:31:49 AM
[2018-03-28 03:51] VITALS: BP 124/76
--- NOTE | 2018-03-28 04:07 | REPVR ---
EXAM: XR Skull, Less Than 4 Views EXAM DATE/TIME: 03/28/18 (3:41am) CLINICAL HISTORY: 27 year old female with pain, headache. V-P shunt tube. TECHNIQUE: XR of the skull, less than 4 views COMPARISON: CT Head of03/28/18 FINDINGS: Sinuses: Well aerated. No opacification. Bones/joints: No fracture. Soft tissues: Unremarkable. Other findings: A V-P shunt tube enters the brain via a right frontal approach. The shunt tube appears intact. The tube courses along the right side of the neck and projects over the medial portion of the right upper chest. IMPRESSION: No acute pathology. A right-sided shunt tube is seen, and appears intact. EXAM: XR Soft Tissue Neck EXAM DATE/TIME: 03/28/18 (3:41am) CLINICAL HISTORY: 27 year old female. Headache, pain. V-P shunt tube. TECHNIQUE: XR of the soft tissues of the neck. COMPARISON: CT Head of 03/28/18 FINDINGS: Airway: Normal. No abnormal narrowing. Soft tissues: Normal. Normal epiglottis. Bones/joints: Normal for age. Other findings: A right-sided V-P shunt tube is seen, coursing over the right side of the neck and the medial portion of the right upper chest. The tubing appears intact. IMPRESSION: No acute findings. Intact right-sided V-P shunt tube. EXAM: XR Chest, 1 View EXAM DATE/TIME: 03/28/18 (3:41am) CLINICAL HISTORY: 27 year old female. Headache, pain. V-P shunt tube. TECHNIQUE: XR of the chest, 1 view COMPARISON: No pertinent studies for comparison FINDINGS: Lungs: Unremarkable. No consolidation. Pleural space: Unremarkable. No pleural effusions. No pneumothorax. Heart/Mediastinum: Unremarkable. No cardiomegaly. Bones/joints: Unremarkable. Soft tissues: Prominent breast shadows. A V-P shunt tube is faintly seen, coursing over the right lower neck region, the medial portion of the right hemithorax, projecting over the lower thoracic spine, and coursing to the right abdomen. The shunt tubing appears intact. IMPRESSION: No acute findings. A V-P shunt tube is visualized and its visualized portions appears intact. See comments above. EXAM: XR Abdomen, 1 View EXAM DATE/TIME: 03/28/18 (3:41am) CLINICAL HISTORY: 27 year old female. Headache, pain. V-P shunt tube. TECHNIQUE: Frontal supine view of the abdomen/pelvis COMPARISON: Frontal CXR of 03/28/18 FINDINGS: The bowel gas pattern is nonspecific and non-obstructed. Some fecal matter is present in the right colon and proximal transverse colon. A right-sided V-P shunt tube is seen, projecting over the lower thoracic spine, and coursing to the right abdomen. The distal tip of the tube lies in the LLQ area. Monitor leads / electrodes project over the abdomen. The shunt tubing appears intact. IMPRESSION: No acute findings. A GASOLINE FINISHER shunt tube is seen, with its distal tip in the LLQ area. The visualized tubing appears intact. Electronically signed by: Kaye Judge On 03/28/2018 04:07:43 AM
== END 2018-03-28 04:40 | disposition home or self-care (01) ==
LOC: M ED 01:54
DX: R51 Headache (principal); G93.2 Benign intracranial hypertension; E28.2 Polycystic ovarian syndrome; Z98.2 Presence of cerebrospinal fluid drainage device; Z79.899 Other long term (current) drug therapy; Z88.1 Allergy status to other antibiotic agents; Z88.2 Allergy status to sulfonamides; Z88.8 Allergy status to other drugs, medicaments and biological substances
CPT/HCPCS: 70450; 75809; 80048; 80076; 83690; 84703; 85025; 96374; 96375; 99284; J1885; J2765

== ENCOUNTER 2018-07-23 14:39 | Inpatient (IN) | payer OTHER ==
[~2018-07-23] VITALS: Ht 157.5 cm; Wt 114.4 kg
[~2018-07-23 14:39] MED LIST changes: +ACET-716 PO; -ACET30TAB PO; +AMIT10TA; +HYDR-3715 PO; +MAGN400T; -NORC1TAB4 PO; +NORC1TAB7 PO; +NORC1TAB8 PO; -NORC7.5T35 PO; -NORCOTAB PO; +PEPT262C2 PO; +PROM25TA22; +TRAZ-160
[2018-07-23] MEDS ORDERED: OXYC-517 PO (14:52)
[2018-07-23] MEDS ORDERED: BUSP10TA PO (14:52)
[2018-07-23] MEDS ORDERED: PROM25TA12 PO (14:52)
[2018-07-23 16:10] LABS: BASO # 0.1 10^3/uL (0.0-0.2); BASO % 0.6 % (0.0-1.0); EOS # 0.3 10^3/uL (0.0-0.50); EOS % 3.2 % (0.0-3.0); HEMATOCRIT 39.5 % (36.0-47.0); HEMOGLOBIN 12.7 g/dl (12.0-15.5); LYMPH # 1.8 10^3/uL (1.5-6.5); MEAN CORPUSCULAR HEMOGLOBIN 30.3 pg (27.0-33.0); MEAN CORPUSCULAR HGB CONC 32.2 g/dl (32.0-36.5); MEAN CORPUSCULAR VOLUME 94.3 fl (80.0-96.0); MONO # 0.7 10^3/uL (0.0-0.8); MONO % 7.4 % (0.0-5.0); NEUTROPHILS % 70.4 % (36.0-66.0); PLATELET COUNT, AUTOMATED 385 10^3/uL (150-450); RED BLOOD COUNT 4.19 10^6/uL (4.00-5.40)
[2018-07-23 16:44] LABS: ALBUMIN 3.7 GM/DL (3.2-5.2); ALT/SGPT 24 U/L (12-78); BILIRUBIN,DIRECT < 0.1 MG/DL (0.0-0.2); BILIRUBIN,TOTAL 0.2 MG/DL (0.2-1.0); BLOOD UREA NITROGEN 12 MG/DL (7-18); CALCIUM LEVEL 8.7 MG/DL (8.5-10.1); CARBON DIOXIDE LEVEL 23 MEQ/L (21-32); CHLORIDE LEVEL 108 MEQ/L (98-107); CREATININE FOR GFR 0.67 MG/DL (0.55-1.30); GLOMERULAR FILTRATION RATE > 60.0 (>60); GLUCOSE, FASTING 110 MG/DL (70-100); LIPASE 339 U/L (73-393); POTASSIUM SERUM 4.1 MEQ/L (3.5-5.1); SODIUM LEVEL 141 MEQ/L (136-145); TOTAL PROTEIN 6.8 GM/DL (6.4-8.2)
[2018-07-23] MEDS ORDERED: ONDANSETRON 4MG/2ML VIAL (J2405) IV ONE (18:15)
[2018-07-23] MEDS ORDERED: MORPHINE 4 MG/ML 1ML VIAL/SYRINGE (J2270) IV ONE (18:15)
[2018-07-23] MEDS: GASTROGRAFIN SOLUTION 30ML PO SCH ×2 (18:18→18:45)
[2018-07-23] MEDS: NS 1,000 ML IV SCH (18:18)
--- NOTE | 2018-07-23 18:21 | REP ---
CT Head without contrast HISTORY: Shunt pain COMPARISON: 05/15/2018 There is no intraparenchymal hemorrhage, acute infarct, mass or midline shift. Two shunts are present in the the region of the anterior horns of the lateral ventricles. There is no hydrocephalus. The third and lateral ventricles are small in size. There is no extra cerebral collection. There is no fracture. The visualized sinuses are clear. IMPRESSION: 1. There is no intracranial lesion. 2. There are two shunts in the region of the anterior horns of the lateral ventricles. There is no hydrocephalus. The ventricles are small in size. Electronically Signed by Marlo Yarbrough MD 07/23/2018 06:12 P
[2018-07-23] MEDS ORDERED: LIDO5DIS41 TD (18:46)
[2018-07-23] MEDS ORDERED: MAGN400T2 PO (18:46)
[2018-07-23] MEDS ORDERED: VOLT1GEL15 TOP (18:46)
[2018-07-23] MEDS ORDERED: APAP325T4 PO (18:46)
[2018-07-23] MEDS ORDERED: IBUP80TA PO (18:49)
[2018-07-23] MEDS ORDERED: MULTCAP PO (18:49)
[2018-07-23] MEDS ORDERED: BIOT5000 PO (18:49)
[2018-07-23] MEDS ORDERED: LIDOCAINE 5% (LIDODERM) PATCH TD ONE (19:30)
[2018-07-23] MEDS ORDERED: ISOVUE-370 76% 100ML VIAL (Q9967) As Ordered ONE (19:50)
--- NOTE | 2018-07-23 20:34 | REPVR ---
EXAM: CT Abdomen and Pelvis With Contrast EXAM DATE/TIME: 07/23/2018 7:58 PM CLINICAL HISTORY: 28 years old, female; Abdominal pain; Localized; Right; Prior surgery; Surgery date: 6+ months; Additional info: Right sided abd pain TECHNIQUE: Imaging protocol: Axial computed tomography images of the abdomen and pelvis with intravenous contrast. Coronal and sagittal reformatted images were created and reviewed. Radiation optimization: All CT scans at this facility use at least one of these dose optimization techniques: automated exposure control; mA and/or kV adjustment per patient size (includes targeted exams where dose is matched to clinical indication); or iterative reconstruction. Contrast material: ISOVUE 370; Contrast volume: 100 ml; Contrast route: IV; COMPARISON: CT ABD PELVIS W/O FOL BY WIT 01/29/2018 4:20 PM FINDINGS: Lungs: Clear lung bases. Heart: The heart is normal in size. ABDOMEN: Liver: Normal appearing liver. Gallbladder and bile ducts: Normal gallbladder. Normal common bile duct. Pancreas: Normal pancreas. Spleen: Normal spleen. Adrenals: Normal adrenal glands Kidneys and ureters: Normal kidneys. No evidence of hydronephrosis. Stomach and bowel: The cecum is in the right pelvis and there is no evidence of inflammation in the region of the cecum. The appendix cannot be identified with certainty. Contrast throughout the small bowel no evidence of obstruction. There are 2 opaque catheters in the subcutaneous layer anterior chest, abdomen and pelvis. The catheter tubing enters the peritoneal cavity at the level of the pelvis below the umbilicus. The opaque tubes are coiled near the urinary bladder. PELVIS: Bladder: Normal urinary bladder. Reproductive: The uterus is normal in size. 1.5 CM cyst in the right ovary with enhancing margins. A small amount of fluid which may be the result of leaking of the cyst. Normal appearing left ovary. ABDOMEN and PELVIS: Intraperitoneal space: There is no evidence of pneumoperitoneum. Bones/joints: No acute fracture. No dislocation. Vasculature: There is opacification of the aorta appears intact. As opacification of the SMV and SMA. Lymph nodes: There is no evidence of lymphadenopathy. IMPRESSION: 1. No evidence of bowel obstruction. 2. No evidence of inflammation. 3. 1.5 CM cyst right ovary with a small amount of fluid probably from leaking of the cyst. Electronically signed by: Hudson Momin On 07/23/2018 20:34:02 PM
[2018-07-24 00:15] LABS: C REACTIVE PROTEIN QUANTITATIV 1.39 MG/DL (0.00-0.30)
--- NOTE | 2018-07-24 00:50 | ED PDOC ---
Post-Departure Follow-Up [facility] accessed to obtain blood culture results for Dr. Wolf Bolanos. Patient informed o f same. Artemio Hays M.D. July 24, 2018 00:50
[2018-07-24 01:26] VITALS: BP 137/93
[2018-07-24] MEDS: NS 1,000 ML IV SCH ×4 (01:31→20:21)
[2018-07-24] MEDS: busPIRone 10 MG TAB PO SCH ×3 (01:47→20:21)
[2018-07-24] MEDS: oxyCODONE 5MG TAB PO PRN ×4 (01:47→21:19)
[2018-07-24] MEDS: cefTRIAXone SOD 2 GM in D5W MINI-BAG PLUS 50 ML IV SCH (01:48)
[2018-07-24 06:00] VITALS: BP 136/61
[2018-07-24 06:12] LABS: BASO # 0.1 10^3/uL (0.0-0.2); BASO % 0.6 % (0.0-1.0); EOS # 0.3 10^3/uL (0.0-0.50); EOS % 3.6 % (0.0-3.0); HEMATOCRIT 36.4 % (36.0-47.0); HEMOGLOBIN 11.4 g/dl (12.0-15.5); LYMPH # 2.4 10^3/uL (1.5-6.5); LYMPH % 28.2 % (24.0-44.0); MEAN CORPUSCULAR HEMOGLOBIN 29.5 pg (27.0-33.0); MEAN CORPUSCULAR HGB CONC 31.3 g/dl (32.0-36.5); MEAN CORPUSCULAR VOLUME 94.1 fl (80.0-96.0); MONO # 0.8 10^3/uL (0.0-0.8); MONO % 9.6 % (0.0-5.0); NEUTROPHILS # 4.9 10^3/uL (1.8-7.7); NEUTROPHILS % 57.6 % (36.0-66.0); PLATELET COUNT, AUTOMATED 345 10^3/uL (150-450); RED BLOOD COUNT 3.87 10^6/uL (4.00-5.40); WHITE BLOOD COUNT 8.6 10^3/uL (4.0-10.0)
[2018-07-24 06:38] LABS: BLOOD UREA NITROGEN 9 MG/DL (7-18); CALCIUM LEVEL 8.3 MG/DL (8.5-10.1); CARBON DIOXIDE LEVEL 26 MEQ/L (21-32); CHLORIDE LEVEL 108 MEQ/L (98-107); CREATININE FOR GFR 0.58 MG/DL (0.55-1.30); GLOMERULAR FILTRATION RATE > 60.0 (>60); GLUCOSE, FASTING 92 MG/DL (70-100); POTASSIUM SERUM 3.6 MEQ/L (3.5-5.1); SODIUM LEVEL 140 MEQ/L (136-145)
--- NOTE | 2018-07-24 06:55 | HPEPDOC ---
General Date of Admission 07/23/18 Date of Service: July 23, 2018 Chief Complaint The patient is a 28-year-old female admitted with a reason for visit of Gen Med. Source: Patient, Family, RN/MD, Old records Exam Limitations: No limitations Severity: Moderate Associated Symptoms: Fever, Chills, Headaches, Malaise, Nausea, Vomiting, Other (abdominal pain and diarrhea) History of Present Illness 28 year old female with PMH of pseudotumor cerebri since age of 21 years with multiple LPs in the past and then placement of SQL APPLICATION DEVELOPER shunt 3 years ago on the right and an LP shunt in 2018 which was removed earlier this year and a second SQL APPLICATION DEVELOPER shunt on the left in june 2018 both at [facility], chronic headaches, seizure disorder, PCOD, anxiety and depression, herpes zoster, irritable bowel syndrome presented to the ED at the [facility] for incomplete treatment for positive blood cultures from [facility] ED on 07/04/18. Patient first presented to [facility] on for nausea, vomiting, abdominal pain and diarrhea. Patient had a 1/2 blood cultures positive which grew strep viridans and was sent to [facility] where she stayed for 1 day. She presented to [facility] ED again with non resolution of symptoms and this time she was sent to [facility] . She was admitted there from 07/10/18 to 07/16/18 and she was treated for Strep viridans Bacteremia. SHe had LP done which showed elevated protein but negative culture, Has TTE and ELIZABET done which as per pt was negative. She was seen By ID there and was advised 2 weeks of ceftriaxone 2 gms She left [facility] on day 6t of admission. She says that she finished the course of levofloxacin which she was originally prescribed from [facility]. She felt better for about 2 days after leaving [facility] then again 3 days ago all her symptoms came back . She had a fever of 101.7 at home, She continued to have increased abdominal pain on the right side and periumbilical area. The pain is constant with some cramps in between associated with vomiting several times. She also continues to have diarrhea which is liquid brown stool which she says started after her shunt surgery on June 13, 2018 and has been going onsince then. Patient admitted for recent history of bacteremia with incomplete treatment. Home Medications Scheduled Biotin (Biotin) 5 Mg Capsule, 5,000 MCG PO DAILY, (Reported) Buspirone HCl (Buspirone HCl) 10 Mg Tablet, 10 MG PO BID, (Reported) Fluoxetine HCl (Prozac) 40 Mg Cap, 40 MG PO DAILY, (Reported) L.acidoph/L.bulg/B.bif/S.therm (Cande-Bid Caplet) 1 Each Tablet, 2 EA PO WM Magnesium Oxide (Magnesium Oxide) 400 Mg Tablet, 400 MG PO DAILY, (Reported) Multivitamin (Multivitamins) 1 Each Capsule, 1 CAP PO DAILY, (Reported) Vancomycin Hcl (Vancomycin HCl) 250 Mg Capsule, 250 MG PO QID Scheduled PRN Acetaminophen (Acetaminophen) 325 Mg Tablet, 325 MG PO BID PRN for PAIN, (Reported) PATIENT STATES SHE ALTERNATES WITH IBUPROFEN 800MG Diclofenac Sodium (Voltaren) 100 Gm Gel..gram., 1 APLCT TOP DAILY PRN for PAIN, (Reported) APPLIES TO ABDOMEN Ibuprofen (Ibuprofen) 800 Mg Tablet, 800 MG PO Q6H PRN for PAIN, (Reported) PATIENT STATES SHE ALTERNATES WITH ACETAMINOPHEN Lidocaine (Lidoderm) 5% Adh..patch, 1 PATCH TD DAILY PRN for PAIN, (Reported) APPLIES TO ABDOMEN, DOES NOT CURRENTLY HAVE A PATCH ON Oxycodone HCl (Oxycodone HCl) 5 Mg Tablet, 5 MG PO QID PRN for PAIN, (Reported) Promethazine HCl (Promethazine HCl) 25 Mg Tablet, 25 MG PO Q4H PRN for NAUSEA, (Reported) PATIENT STATES SHE VOMITED SHORTLY AFTER TAKING ON 07/23/18 IN THE MORNING Allergies Coded Allergies: Sulfa (Sulfonamide Antibiotics) (Verified Allergy, Severe, anaphylaxis, 07/23/18) acetazolamide (Verified Allergy, Severe, anyphylaxis, 07/23/18) heparin (Verified Allergy, Intermediate, hives, 07/23/18) Past Medical History Medical History pseudotumor cerebri , chronic headaches, seizure disorder, PCOD, anxiety and depression, herpes zoster, irritable bowel syndrome. Surgical History Bilateral SQL APPLICATION DEVELOPER shunts, appendectomy, tonsillectomy, laparotomy, sinus surgery, excision of lipoma and excision of ganglion cyst from the wrist, DNS surgery Family History reviewed with patient nothing significant related to current problems Social History * Smoker: Denies Alcohol: Denies Drugs: denies A-FIB/CHADSVASC A-FIB History Current/History of A-Fib/PAF?: No Review of Systems Constitutional: Reports: Chills, Fever, Malaise, Weakness, Fatigue Eyes: Denies: Pain, Vision change ENT: Reports: Head Aches Skin: Denies: Rash, Lesions, Breakdown Pulmonary: Denies: Dyspnea, Cough Cardiovascular: Denies: Chest Pain, Palpitations, Orthopnea, Paroxysmal Noc. Dyspnea, Lt Headedness Gastrointestinal: Reports: Nausea, Vomiting, Abdominal Pain, Diarrhea Genitourinary: Denies: Dysuria, Frequency, Incontinence, Retention Hematologic: Denies: Bruising, Bleeding Excessively Musculoskeletal: Reports: Neck Pain Neurological: Denies: Weakness, Numbness, Change in speech, Confusion Psych: Reports: Anxiety, Depression Physical Examination General Exam: Positive: Alert, Cooperative, Mild Distress (abdominal pain) Eye Exam: Positive: PERRLA, Conjunctiva & lids normal, EOMI; Negative: Sclera icteric ENT Exam: Positive: Atraumatic, Mucous membr. moist/pink, Pharynx Normal Neck Exam: Positive: Supple, Other (No neck stiffness.) Chest Exam: Positive: Clear to auscultation, Normal air movement Heart Exam: Positive: Rate Normal, Regular Rhythm, Normal S1, Normal S2; Negative: Murmurs, Rubs Abdomen Exam: Positive: Normal bowel sounds, Soft, Tenderness (right illiac fossa and periumbiical area), Other (negative guarding and rigidity) Extremity Exam: Positive: Normal pulses; Negative: Clubbing, Cyanosis, Edema Skin Exam: Positive: Nl turgor and temperature; Negative: Breakdown, Lesion Neuro Exam: Positive: Normal Speech, Strength at 5/5 X4 ext, Normal Tone, Sensation Intact Vital Signs Vital Signs Date Time Temp Pulse Resp B/P (MAP) Pulse Ox O2 Delivery O2 Flow Rate FiO2 07/23/18 19:01 98.8 93 18 129/81 (97) 98 Room Air Laboratory Data Labs 24H Laboratory Tests 2 07/23/18 15:53: Immature Granulocyte % (Auto) 0.4, White Blood Count 10.0, Red Blood Count 4.19, Hemoglobin 12.7, Hematocrit 39.5, Mean Corpuscular Volume 94.3, Mean Corpuscular Hemoglobin 30.3, Mean Corpuscular Hemoglobin Concent 32.2, Red Cell Distribution Width 12.7, Platelet Count 385, Neutrophils (%) (Auto) 70.4H, Lymphocytes (%) (Auto) 18.0L, Monocytes (%) (Auto) 7.4H, Eosinophils (%) (Auto) 3.2H, Basophils (%) (Auto) 0.6, Neutrophils # (Auto) 7.0, Lymphocytes # (Auto) 1.8, Monocytes # (Auto) 0.7, Eosinophils # (Auto) 0.3, Basophils # (Auto) 0.1, Nucleated Red Blood Cells % (auto) 0.0, Urine Color YELLOW, Urine Appearance HAZY, Urine pH 5.0, Urine Specific [place] 1.023, Urine Protein NEGATIVE, Urine Glucose (UA) NEGATIVE, Urine Ketones NEGATIVE, Urine Blood NEGATIVE, Urine Nitrite NEGATIVE, Urine Bilirubin NEGATIVE, Urine Urobilinogen 0.2, Urine Leukocyte Esterase NEGATIVE, Urine WBC (Auto) 1, Urine RBC (Auto) 1, Urine Hyaline Casts (Auto) 0, Urine Bacteria (Auto) NEGATIVE, Urine Squamous Epithelial Cells 3, Urine Mucus (Auto) SMALL, Urine Sperm (Auto) , Anion Gap 10, Glomerular Filtration Rate > 60.0, Lactic Acid Level 1.6, Calcium Level 8.7, Aspartate Amino Transf (AST/SGOT) 14, Alanine Aminotransferase (ALT/SGPT) 24, Alkaline Phosphatase 74, Total Bilirubin 0.2, Direct Bilirubin < 0.1, Total Protein 6.8, Albumin 3.7, Albumin/Globulin Ratio 1.19, Lipase 339 07/23/18 15:57: POC Beta HCG, Quantitative < 5.0 CBC/BMP Laboratory Tests 07/23/18 15:53 Red Blood Count 4.19, Mean Corpuscular Volume 94.3, Mean Corpuscular Hemoglobin 30.3, Mean Corpuscular Hemoglobin Concent 32.2, Red Cell Distribution Width 12.7, Neutrophils (%) (Auto) 70.4 H, Lymphocytes (%) (Auto) 18.0 L, Monocytes (%) (Auto) 7.4 H, Eosinophils (%) (Auto) 3.2 H, Basophils (%) (Auto) 0.6, Neutrophils # (Auto) 7.0, Lymphocytes # (Auto) 1.8, Monocytes # (Auto) 0.7, Eosinophils # (Auto) 0.3, Basophils # (Auto) 0.1 Microbiology Microbiology 07/23/18 Blood Culture, Received Pending 07/23/18 Blood Culture, Received Pending Assessment/Plan 28 year old female with PMH of pseudotumor cerebri since age of 21 years with multiple LPs in the past and then placement of SQL APPLICATION DEVELOPER shunt 3 years ago on the right and an LP shunt in 2018 which was removed earlier this year and a second SQL APPLICATION DEVELOPER shunt on the left in june 2018 both at [facility], chronic headaches, seizure disorder, PCOD, anxiety and depression, herpes zoster, irritable bowel syndrome presented to the ED at the [facility] for incomplete treatment for positive blood cultures from [facility] ED on 07/04/18. Patient first presented to [facility] on for nausea, vomiting, abdominal pain and diarrhea. Patient had a 1/2 blood cultures positive which grew strep viridans and was sent to [facility] where she stayed for 1 day. She presented to [facility] ED again with non resolution of symptoms and this time she was sent to [facility] . She was admitted there from 07/10/18 to 07/16/18 and she was treated for Strep viridans Bacteremia. SHe had LP done which showed elevated protein but negative culture, Has TTE and ELIZABET done which as per pt was negative. She was se en By ID there and was advised 2 weeks of ceftriaxone 2 gms She left [facility] on day 6t of admission. She says that she finished the course of levofloxacin which she was originally prescribed from [facility]. She felt better for about 2 days after leaving [facility] then again 3 days ago all her symptoms came back . She had a fever of 101.7 at home, She continued to have increased abdominal pain on the right side and periumbilical area. The pain is constant with some cramps in between associated with vomiting several times. She also continues to have diarrhea which is liquid brown stool which she says started after her shunt surgery on June 13, 2018 and has been going onsince then. Patient admitted for recent history of bacteremia with incomplete treatment. Strep viridans bacteremia 1/2 blood culture from [facility] ED positive on 07/04/18 subsequent 2 sets of blood cultures from [facility] negative Had LP done at [facility] negative gram stain, neg culture, TTE and ELIZABET at couch negative for vegetations. Seen by ID advised 2 weeks of ceftriaxone 2 gm starting from 07/10/18. Was in the hospital till 07/16/18 then left [facility]. So she received only 7 days . I have restarted ceftriaxone. Blood cultures have been reordered Consider consulting ID for further recommendations. Pseudotumor cerebri had Bilateral SQL APPLICATION DEVELOPER shunts put in [facility]. At one point also had a LP shunt last year was closed off early part of this year. Morbid obesity complicating care Chronic abdominal pain , chronic headaches. will give flector and lidoderm patch for abdominal pain oxycodone prn. Diarrhea or 6 weeks since SQL APPLICATION DEVELOPER shunt surgery on June 13 will check stool for c diff. Has history of IBS so often has intermittent diarrhea and abdominal cramps. If GI panel negative can consider dicyclomine prn. DVT prophylaxis ordered. Plan / VTE VTE Prophylaxis Ordered?: Yes KWASI MCKINNON MD July 24, 2018 00:00
--- NOTE | 2018-07-24 07:22 | REP ---
SHUNT SERIES, SIX VIEWS: HISTORY: Shunt pain. COMPARISON: 05/15/2018 Two ventriculoperitoneal shunts are present in the anterior horns of the lateral ventricles. The right ventricular shunt tubing is present overlying the anterior right hemithorax. The distal tip of the shunt is present in the pelvis. The left ventricular shunt tubing is present overlying the left anterior hemithorax. The distal tip of the shunt tubing is present in the pelvis. There is no definite shunt discontinuity. A small segment of shunt tubing is present in the right upper quadrant. IMPRESSION:There is no definite shunt discontinuity. Electronically Signed by Marlo Yarbrough MD 07/24/2018 08:02 A
[2018-07-24] MEDS: DICLOFENAC EPOLAMINE 1.3 % PATCH TOP SCH ×2 (08:32→20:22)
[2018-07-24] MEDS: FLUoxetine 20 MG CAP PO SCH (08:32)
--- NOTE | 2018-07-24 12:39 | IPN ---
DATE: 07/24/2018 PRIMARY CARE PROVIDER: [facility] INFECTIOUS DISEASE SPECIALIST: Dr. Flavia Dias HISTORY: The patient was admitted with positive blood culture. She has a history of pseudotumor cerebri, has ventriculoperitoneal (WING COVERER) shunts placed and revised. Had a lumbar puncture (LP) shunt done 03/2017 on the right side, Dr. Dalton Lai at [facility], which broke. Left-sided spinal shunt done 05/2017 because of causing too much fluid drainage causing spinal headaches. It was ligated 07/2017. She has had recurrent fevers since then up to 103, left-sided abdominal pain, apparently had Escherichia (E) coli diarrhea. She saw Dr. Dias most recently 02/2018. Clinically, she says she feels a little better than yesterday on the antibiotic. No chills overnight. No fevers. She is on ceftriaxone. Other past history includes chronic headaches, seizure disorder, polycystic ovary disease, chronic anxiety, depression, irritable bowel syndrome, history of herpes zoster. PHYSICAL EXAMINATION: Afebrile. Maximum temperature (Tmax) 98.3, 136/61. General appearance: She is lying in bed, sleeping. HEENT: Unremarkable. Neck: Supple. Lungs: Clear. Heart: Regular rate and rhythm. Abdomen: Soft. Slightly tender on the right side. Trace peripheral edema. LABS: White count 8.6, hemoglobin 11.4, platelets 345. Sodium 140, potassium 3.6, BUN 9, creatinine 0.5, glucose 92. Blood cultures and gastrointestinal (GI) panel pending. IMPRESSION: 1. Patient with recent blood cultures positive for both Streptococcus viridans (negative transthoracic and transesophageal echo, negative lumbar puncture) who had 1 of 2 blood cultures positive for strep viridans bacteremia 07/2018, two sets blood cultures done at [facility] were negative. Transesophageal echo negative for vegetations. Treated for 6 days out of a planned 2 weeks of intravenous (IV) antibiotics with ceftriaxone before leaving against medical advice 07/20/2018. Plan: Continue the IV ceftriaxone as long as she will stay. Will consult infectious disease. Dr. Dias is off today. We will give her a call tomorrow. Her blood cultures are pending. 2. Diarrhea. Stool test is pending. 3. Pseudotumor cerebri. Complicated past history. Lumbar puncture negative for infection recently.
--- NOTE | 2018-07-24 12:53 | IPN ---
DATE: 07/24/2018 Shannen's gastrointestinal (GI) panel returned showing Clostridium (C) difficile. I will start her on oral vancomycin as well as probiotics. I think she needs to continue the ceftriaxone for now until infectious disease sees her and we sort out issues related to these positive blood cultures.
[2018-07-24] MEDS: LACTOBACILLUS ACIDOPHILUS CAP (BACID) PO SCH ×2 (13:25→18:10)
[2018-07-24] MEDS: VANCOMYCIN ORAL SOL 250MG/5ML ORAL SYRINGE PO SCH ×3 (13:25→23:09)
[2018-07-24 14:00] VITALS: BP 138/92
[2018-07-24] MEDS ORDERED: **NOTE PATIENT COMMENT** MISC XX SCH (19:30)
[2018-07-24 20:00] VITALS: BP 143/83
[2018-07-24] MEDS ORDERED: ACETAMINOPHEN TAB 650MG DOSE (2X325MG) PO ONE (20:15)
[2018-07-25] MEDS: cefTRIAXone SOD 2 GM in D5W MINI-BAG PLUS 50 ML IV SCH (02:44)
[2018-07-25] MEDS: oxyCODONE 5MG TAB PO PRN ×3 (03:42→20:30)
[2018-07-25] MEDS: NS 1,000 ML IV SCH ×3 (03:42→18:12)
[2018-07-25] MEDS: VANCOMYCIN ORAL SOL 250MG/5ML ORAL SYRINGE PO SCH ×3 (05:43→18:55)
[2018-07-25 06:00] VITALS: BP 142/81
[2018-07-25 06:34] LABS: BASO % 0.5 % (0.0-1.0); EOS # 0.3 10^3/uL (0.0-0.50); EOS % 4.2 % (0.0-3.0); HEMATOCRIT 35.5 % (36.0-47.0); HEMOGLOBIN 11.2 g/dl (12.0-15.5); LYMPH # 2.5 10^3/uL (1.5-6.5); LYMPH % 31.9 % (24.0-44.0); MEAN CORPUSCULAR HEMOGLOBIN 30.4 pg (27.0-33.0); MEAN CORPUSCULAR HGB CONC 31.5 g/dl (32.0-36.5); MEAN CORPUSCULAR VOLUME 96.5 fl (80.0-96.0); MONO # 0.7 10^3/uL (0.0-0.8); MONO % 9.3 % (0.0-5.0); NEUTROPHILS # 4.3 10^3/uL (1.8-7.7); NEUTROPHILS % 53.6 % (36.0-66.0); PLATELET COUNT, AUTOMATED 321 10^3/uL (150-450); RED BLOOD COUNT 3.68 10^6/uL (4.00-5.40); WHITE BLOOD COUNT 7.9 10^3/uL (4.0-10.0)
[2018-07-25 06:56] LABS: BLOOD UREA NITROGEN 8 MG/DL (7-18); CALCIUM LEVEL 8.1 MG/DL (8.5-10.1); CARBON DIOXIDE LEVEL 25 MEQ/L (21-32); CHLORIDE LEVEL 109 MEQ/L (98-107); CREATININE FOR GFR 0.54 MG/DL (0.55-1.30); GLOMERULAR FILTRATION RATE > 60.0 (>60); GLUCOSE, FASTING 98 MG/DL (70-100); POTASSIUM SERUM 3.9 MEQ/L (3.5-5.1); SODIUM LEVEL 141 MEQ/L (136-145)
[2018-07-25] MEDS: LACTOBACILLUS ACIDOPHILUS CAP (BACID) PO SCH ×3 (08:16→18:13)
[2018-07-25] MEDS: DICLOFENAC EPOLAMINE 1.3 % PATCH TOP SCH ×3 (08:16→20:31)
[2018-07-25] MEDS: busPIRone 10 MG TAB PO SCH ×2 (08:16→20:29)
[2018-07-25] MEDS: FLUoxetine 20 MG CAP PO SCH (08:16)
--- NOTE | 2018-07-25 11:09 | IPN ---
DATE: 07/25/2018 Shannen is seen on 4 pavilion rounding for the hospitalist. She was found to have Clostridium (C) difficile colitis. Her diarrhea has abated with initiation of her vancomycin. Blood cultures are negative so far. She has an infectious disease consult that is pending. Clinically, she feels better, smiling, looks the best she has since admission. PHYSICAL EXAM: Afebrile. Vital signs stable. Lungs: Clear. Heart: Regular rate and rhythm. Abdomen: Soft, nontender. No peripheral edema. LABS: Complete blood count (CBC), basic metabolic panel (BMP) unremarkable. IMPRESSION: 1. Clostridium difficile colitis on oral vancomycin and probiotic. 2. Positive blood cultures. Waiting for infectious disease input. She is still on ceftriaxone. If infectious disease feels she can be off the ceftriaxone, we could probably discharge tomorrow or the next day.
[2018-07-25 14:00] VITALS: BP 140/78
[2018-07-25 15:17] LABS: C REACTIVE PROTEIN QUANTITATIV 0.95 MG/DL (0.00-0.30)
--- NOTE | 2018-07-25 21:46 | CR.PDOC ---
General Date of Consultation: July 25, 2018 Referring Provider: Mil Rm MD Attending Physician: Flavia Dias MD Consultation REASON FOR CONSULTATION/CHIEF COMPLAINT: C. Diff HISTORY OF PRESENT ILLNESS: Patient is a pleasant 28 year female, whom present to [facility] ED with complaints of diarrhea, low-grade fever, abdominal pain. Patient stated that she started having diarrhea after placement of her shunt on June 13, 2018. She reported 11 lose stools per day. She presented to [facility] ED on 07/04/18 complaint of nausea, vomiting, abdominal pain and diarrhea. On evaluation, she had a 1/2 blood cultures positive for strep viridans, she was discharged from the ED prior to the results being known. The ED provided then called patient and prescribe Levaquin. On 07/09/2018 patient presented to the ED with similar complaints. This time, patient was transferred to [facility] and was treated for Strep viridans Bacteremia. She had LP done which showed elevated protein but negative culture, followed by negative TTE and ELIZABET. While at the hospital she was evaluated by ID and was advised to start 2 weeks of ceftriaxone 2 gms. She left AMA on day 6 of admission. Because she felt, that her treatment cause was not properly explained to her. She finished the course of levofloxacin after that and not AGAINST MEDICAL ADVICE from [facility]. She presented to [facility] on 07/24/18 complaint of fever, increased abdominal pain, cramps, vomiting, and watery diarrhea. Blood cultures has been negative. Stool PCR was positive for C. difficile. She has been afebrile since presentation Patient also has a normal pro-calcitonin level. Infectious disease was consulted for C. difficile and previous strep viridans bacteremia. She denies diarrhea since yesterday after PO vancomycin started ALLERGIES: Please see below. HOME MEDICATIONS: Please see below. PAST MEDICAL HISTORY: pseudotumor cerebri , chronic headaches, seizure disorder, PCOD, anxiety and depression, herpes zoster, irritable bowel syndrome. PAST SURGICAL HISTORY: Bilateral SPECIAL EDUCATION SUPERINTENDENT shunts, appendectomy, tonsillectomy, laparotomy, sinus surgery, excision of lipoma and excision of ganglion cyst from the wrist, DNS surgery FAMILY HISTORY: Patient has been in foster care since the age of 14. No significant family history to report SOCIAL HISTORY: , denies alcohol, denies drugs, denies cigarettes. ROS CONSTITUTIONAL: No fevers, denies chills, denies weight loss, denies lethargy HEENT: No rhinorrhea, no itchy eyes, no congestion, CARDIOVASCULAR: No murmurs no palpitations and arrhythmias RESPIRATORY: Not cough, No SOB, no issues to report GASTROINTESTINAL: No nausea, no vomiting, no difficulty swallowing, no pain with eating, no diarrhea HEMATOLOGICAL: No bleeding GENITOURINARY:No Issues HEMATOLOGIC/LYMPHATIC: No swelling PE VITALS: See Below GENERAL APPEARANCE: Alert no acute distress, obese female SKIN: Warm, well perfused. LUNGS: Clear to auscultation bilaterally. HEART: Normal S1, S2. No murmurs, no rubs, no gallops ABDOMEN: Soft. No masses. Bowel sounds are present. Surgical scar from prior shunt placement, diclofenac patch on right side of abdomin TRUNK/SPINE:Straight. EXTREMITIES: Moves all extremities equally. No gross deformities. PULSES: 2+ upper and lower extremity LABORATORY DATA: Please see below. ASSESSMENT/PLAN: C.Diff Stool was positive for C. difficile. This is most likely from patient's recent antibiotic use. Continue vancomycin. Continue to monitor for clinical improvement. Patient has not have diarrhea since presentation. White count is normal. CRP is also normal. Patient has also remained afebrile and is hemodynamically stable. She can be discharged on by mouth vancomycin. Strep viridans bacteremia Most likely contamination, due to 1/2 positive cultures. Patient has been treated with ceftriaxone, she also completed a course of Levaquin as an outpatient. Discontinue ceftriaxone. Patient does not need treatment for strep viridans bacteremia. Prior ELIZABET and TTE were also negative. Blood cultures in the hospital has been negative. Continue monitor patient clinically. Vital Signs/I&O Vital Signs Date Time Temp Pulse Resp B/P (MAP) Pulse Ox O2 Delivery O2 Flow Rate FiO2 07/25/18 20:30 18 07/25/18 14:00 97.9 71 140/78 (98) 98 07/23/18 19:01 Room Air I&O- Last 24 Hours up to 6 AM 07/25/18 06:00 Intake Total 3578 ml Output Total 0 ml Balance 3578 ml Laboratory Data Labs 24H Laboratory Tests 2 07/25/18 06:02: Immature Granulocyte % (Auto) 0.5, White Blood Count 7.9, Red Blood Count 3.68L, Hemoglobin 11.2L, Hematocrit 35.5L, Mean Corpuscular Volume 96.5H, Mean Corpuscular Hemoglobin 30.4, Mean Corpuscular Hemoglobin Concent 31.5L, Red Cell Distribution Width 12.6, Platelet Count 321, Neutrophils (%) (Auto) 53.6, Lymphocytes (%) (Auto) 31.9, Monocytes (%) (Auto) 9.3H, Eosinophils (%) (Auto) 4.2H, Basophils (%) (Auto) 0.5, Neutrophils # (Auto) 4.3, Lymphocytes # (Auto) 2.5, Monocytes # (Auto) 0.7, Eosinophils # (Auto) 0.3, Basophils # (Auto) 0.0, Nucleated Red Blood Cells % (auto) 0.0, Anion Gap 7L, Glomerular Filtration Rate > 60.0, Blood Urea Nitrogen 8, Creatinine 0.54L, Sodium Level 141, Potassium Level 3.9, Chloride Level 109H, Carbon Dioxide Level 25, Calcium Level 8.1L, C- Reactive Protein, Quantitative 0.95H CBC/BMP Laboratory Tests 07/25/18 06:02 Red Blood Count 3.68 L, Mean Corpuscular Volume 96.5 H, Mean Corpuscular Hemoglobin 30.4, Mean Corpuscular Hemoglobin Concent 31.5 L, Red Cell Distribution Width 12.6, Neutrophils (%) (Auto) 53.6, Lymphocytes (%) (Auto) 31.9, Monocytes (%) (Auto) 9.3 H, Eosinophils (%) (Auto) 4.2 H, Basophils (%) (Auto) 0.5, Neutrophils # (Auto) 4.3, Lymphocytes # (Auto) 2.5, Monocytes # (Auto) 0.7, Eosinophils # (Auto) 0.3, Basophils # (Auto) 0.0, Calcium Level 8.1 L Microbiology Microbiology 07/23/18 Blood Culture - Preliminary, Resulted No Growth after 48 hours. All Specime... 07/23/18 Blood Culture - Preliminary, Resulted No Growth after 48 hours. All Specime... 07/24/18 Gastrointestinal Tract Panel (PCR) - Final, Complete Clostridium Difficile A/B Allergies Coded Allergies: Sulfa (Sulfonamide Antibiotics) (Verified Allergy, Severe, anaphylaxis, 07/23/18) acetazolamide (Verified Allergy, Severe, anyphylaxis, 07/23/18) heparin (Verified Allergy, Intermediate, hives, 07/23/18) Home Medications Scheduled Biotin (Biotin) 5 Mg Capsule, 5,000 MCG PO DAILY, (Reported) Buspirone HCl (Buspirone HCl) 10 Mg Tablet, 10 MG PO BID, (Reported) Fluoxetine HCl (Prozac) 40 Mg Cap, 40 MG PO DAILY, (Reported) L.acidoph/L.bulg/B.bif/S.therm (Cande-Bid Caplet) 1 Each Tablet, 2 EA PO WM for 30 Days, #180 Magnesium Oxide (Magnesium Oxide) 400 Mg Tablet, 400 MG PO DAILY, (Reported) Multivitamin (Multivitamins) 1 Each Capsule, 1 CAP PO DAILY, (Reported) Vancomycin Hcl (Vancomycin HCl) 250 Mg Capsule, 250 MG PO QID for 14 Days, #56 Scheduled PRN Acetaminophen (Acetaminophen) 325 Mg Tablet, 325 MG PO BID PRN for PAIN, (Reported) PATIENT STATES SHE ALTERNATES WITH IBUPROFEN 800MG Diclofenac Sodium (Voltaren) 100 Gm Gel..gram., 1 APLCT TOP DAILY PRN for PAIN, (Reported) APPLIES TO ABDOMEN Ibuprofen (Ibuprofen) 800 Mg Tablet, 800 MG PO Q6H PRN for PAIN, (Reported) PATIENT STATES SHE ALTERNATES WITH ACETAMINOPHEN Lidocaine (Lidoderm) 5% Adh..patch, 1 PATCH TD DAILY PRN for PAIN, (Reported) APPLIES TO ABDOMEN, DOES NOT CURRENTLY HAVE A PATCH ON Oxycodone HCl (Oxycodone HCl) 5 Mg Tablet, 5 MG PO QID PRN for PAIN, (Reported) Promethazine HCl (Promethazine HCl) 25 Mg Tablet, 25 MG PO Q4H PRN for NAUSEA, (Reported) PATIENT STATES SHE VOMITED SHORTLY AFTER TAKING ON 07/23/18 IN THE MORNING GME ATTESTATION GME ATTESTATION My faculty preceptor for this patient encounter was physically present during the encounter and was fully available. All aspects of the patient interview, examination, medical decision making process, and medical care plan development were reviewed and approved by the faculty preceptor. The faculty preceptor is aware and concurs with the plan as stated in the body of this note and will attest to such by his/her cosignature. GINO TAVERA DO July 25, 2018 21:46 Flavia Dias MD July 26, 2018 15:28
[2018-07-25 22:00] VITALS: BP 137/78
[2018-07-26] MEDS: VANCOMYCIN ORAL SOL 250MG/5ML ORAL SYRINGE PO SCH ×3 (00:06→12:09)
[2018-07-26] MEDS: oxyCODONE 5MG TAB PO PRN ×2 (05:04→12:11)
[2018-07-26 06:00] VITALS: BP 112/66
[2018-07-26 07:14] LABS: BASO # 0.1 10^3/uL (0.0-0.2); BASO % 0.7 % (0.0-1.0); EOS # 0.4 10^3/uL (0.0-0.50); EOS % 4.3 % (0.0-3.0); HEMATOCRIT 36.1 % (36.0-47.0); HEMOGLOBIN 11.5 g/dl (12.0-15.5); LYMPH # 2.9 10^3/uL (1.5-6.5); LYMPH % 35.1 % (24.0-44.0); MEAN CORPUSCULAR HEMOGLOBIN 29.7 pg (27.0-33.0); MEAN CORPUSCULAR HGB CONC 31.9 g/dl (32.0-36.5); MEAN CORPUSCULAR VOLUME 93.3 fl (80.0-96.0); MONO # 0.7 10^3/uL (0.0-0.8); MONO % 8.6 % (0.0-5.0); NEUTROPHILS # 4.2 10^3/uL (1.8-7.7); NEUTROPHILS % 50.8 % (36.0-66.0); PLATELET COUNT, AUTOMATED 360 10^3/uL (150-450); RED BLOOD COUNT 3.87 10^6/uL (4.00-5.40); WHITE BLOOD COUNT 8.2 10^3/uL (4.0-10.0)
[2018-07-26 07:47] LABS: BLOOD UREA NITROGEN 6 MG/DL (7-18); CALCIUM LEVEL 8.3 MG/DL (8.5-10.1); CARBON DIOXIDE LEVEL 25 MEQ/L (21-32); CHLORIDE LEVEL 107 MEQ/L (98-107); CREATININE FOR GFR 0.55 MG/DL (0.55-1.30); GLOMERULAR FILTRATION RATE > 60.0 (>60); GLUCOSE, FASTING 93 MG/DL (70-100); POTASSIUM SERUM 3.6 MEQ/L (3.5-5.1); SODIUM LEVEL 139 MEQ/L (136-145)
[2018-07-26] MEDS: busPIRone 10 MG TAB PO SCH (10:18)
[2018-07-26] MEDS: FLUoxetine 20 MG CAP PO SCH (10:19)
[2018-07-26] MEDS: LACTOBACILLUS ACIDOPHILUS CAP (BACID) PO SCH ×2 (10:22→12:09)
[2018-07-26] MEDS ORDERED: RISATAB3 PO (11:33)
[2018-07-26] MEDS ORDERED: VANC250C3 PO (11:33)
--- NOTE | 2018-07-26 11:46 | DSES ---
DATE OF ADMISSION: 07/23/2018 DATE OF DISCHARGE: PRINCIPAL DIAGNOSIS: Clostridium (C.) difficile colitis. SECONDARY DIAGNOSES: 1. Bacteremia, suspected contaminant of blood culture. 2. Pseudotumor cerebri. HISTORY: Shannen Cobb was admitted because she has had some blood cultures that have been positive for Streptococcus viridans. She had a negative transesophageal echo and negative lumbar puncture, however, there is concern that this might be bacteremia versus contaminant so she was admitted for further workup. Details are in the history and physical from admission. HOSPITAL COURSE: Admitted to a medical bed and started on ceftriaxone. Infectious disease consultation was obtained and they felt that the positive blood culture was contaminant and not bacteremia and stopped antibiotics. She has been having diarrhea. She has been a series of antibiotics. Recently her stool was tested for C difficile and it returned positive. She was started on vancomycin 250 mg every 6 hours and had prompt improvement of her diarrhea, which has resolved by the time of discharge. SIGNIFICANT LABORATORIES: White count today is 8.2, hemoglobin 11.5, platelets 360. Sodium 139, potassium 3.9, BUN 6, creatinine 0.5, glucose 93. DISPOSITION: The patient is discharged home in improved and stable condition with followup at [facility] in 1 week. Activity and diet as tolerated. Medicines will continue to be the same that she was taking at home. - Biotin 5000 mcg daily - Tylenol as needed - BuSpar 10 mg twice a day - Voltaren gel as needed - fluoxetine 40 mg daily - ibuprofen as needed - Lidocaine patch as needed - mag oxide 400 mg daily - multivitamin - oxycodone 5 mg four times a day - promethazine 25 mg every 4 hours as needed New medications are: - vancomycin 250 mg four times a day for 14 days - probiotic two capsules with meals three times a day for 30 days
== END 2018-07-26 14:10 | disposition home or self-care (01) | DRG 373 ==
LOC: M ED 14:39 → M ED INP 23:49 → M MSPAV 07-24 01:12
PROVIDERS: ADMIT Internal Medicine Nephrology; ATTEND Family Medicine
DX: A04.72 Enterocolitis due to Clostridium difficile, not specified as recurrent (principal); G93.2 Benign intracranial hypertension; Z98.2 Presence of cerebrospinal fluid drainage device; R51 Headache; G40.909 Epilepsy, unspecified, not intractable, without status epilepticus; F41.9 Anxiety disorder, unspecified; B02.9 Zoster without complications; F32.9 Major depressive disorder, single episode, unspecified; E28.2 Polycystic ovarian syndrome; K58.0 Irritable bowel syndrome with diarrhea; Z79.899 Other long term (current) drug therapy; Z88.2 Allergy status to sulfonamides; Z88.8 Allergy status to other drugs, medicaments and biological substances; Z90.49 Acquired absence of other specified parts of digestive tract

== ENCOUNTER 2018-08-31 03:05 | Emergency (ER) | payer OTHER ==
[~2018-08-31] VITALS: Ht 157.5 cm; Wt 113.6 kg
[2018-08-31 03:05] VITALS: BP 143/79
[~2018-08-31 03:05] MED LIST changes: +APAP325T4 PO; +BIOT5000 PO; +BUSP10TA PO; +IBUP80TA PO; +LIDO5DIS41 TD; +MAGN400T2 PO; +MULTCAP PO; +OXYC-517 PO; +PROM25TA12 PO; +RISATAB3 PO; -TRAZ-160; +TRAZ-252; +VANC250C3 PO; +VOLT1GEL15 TOP
[2018-08-31] MEDS ORDERED: CABE0.5T PO (03:11)
[2018-08-31] MEDS ORDERED: ZOFR4TAB16 PO (03:11)
== END 2018-08-31 04:08 | disposition left against medical advice (07) ==
LOC: M ED 03:05
DX: R10.9 Unspecified abdominal pain (principal); Z53.21 Procedure and treatment not carried out due to patient leaving prior to being seen by health care provider

== ENCOUNTER 2018-11-05 22:34 | Emergency (ER) | payer OTHER ==
[~2018-11-05] VITALS: Ht 157.5 cm; Wt 113.6 kg
[~2018-11-05 22:34] MED LIST changes: +CABE0.5T PO; +ZOFR4TAB16 PO
[2018-11-05] MEDS ORDERED: diphenhydrAMINE INJ 50MG/ML VIAL (J1200) IV ONE (23:45)
[2018-11-05] MEDS ORDERED: NS 1,000 ML IV ONE (23:45)
[2018-11-05] MEDS ORDERED: KETOROLAC 30 MG/ML VIAL (J1885) IV ONE (23:45)
[2018-11-05] MEDS ORDERED: METOCLOPRAMIDE INJ 10MG/2ML VIAL (J2765) IV ONE (23:45)
[2018-11-06] MEDS: MORPHINE 4 MG/ML 1ML VIAL/SYRINGE (J2270) IV PRN ×2 (00:18→01:04)
--- NOTE | 2018-11-06 00:20 | REPVR ---
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 Radiation optimization: All CT scans at this facility use at least one of these dose optimization techniques: automated exposure control; mA and/or kV adjustment per patient size (includes targeted exams where dose is matched to clinical indication); or iterative reconstruction. COMPARISON: CT Head without contrast 07/23/2018 5:53 PM FINDINGS: Tubes, catheters and devices: There is an intact right frontal approach ventriculoperitoneal shunt catheter entering into the right frontal horn of the lateral ventricle and terminating near the foramen of Lopez. There is also an intact left frontal approach ventriculoperitoneal shunt catheter entering into the frontal horn of the left lateral ventricle and terminating at the left foramen of Lopez. The ventriculoperitoneal shunt catheters are in unchanged position compared to the prior CT scan of 07/23/2018 Brain: There is no evidence for an acute large vessel territorial infarct, intracranial hemorrhage, mass, mass effect, or herniation. The cortical gyration pattern, basal ganglia, thalami, and cerebellum are normal in appearance. Brainstem: Unremarkable. Midline shift: There is no midline shift. Ventricles: The lateral ventricles and third ventricle are small and unchanged in size compared to the prior CT scan on 07/23/2018. The fourth ventricle is normal in size. No hydrocephalus. Bones/joints: Unremarkable. No acute fracture. There are no bony destructive changes. Sinuses: Visualized sinuses are unremarkable. No fluid levels. Mastoid air cells: Visualized mastoid air cells are well aerated. Soft tissues: Unremarkable. IMPRESSION: No acute intracranial abnormality. No significant change compared to the prior CT head on 07/23/2018. Electronically signed by: Charlie Bains On 11/06/2018 00:20:10 AM
[2018-11-06 00:38] LABS: BASO % 0.4 % (0.0-1.0); EOS # 0.1 10^3/uL (0.0-0.5); EOS % 1.2 % (0.0-3.0); HEMATOCRIT 41.2 % (36.0-47.0); HEMOGLOBIN 13.4 g/dl (12.0-15.5); LYMPH # 2.5 10^3/uL (1.5-5.0); LYMPH % 25.1 % (24.0-44.0); MEAN CORPUSCULAR HEMOGLOBIN 29.8 pg (27.0-33.0); MEAN CORPUSCULAR HGB CONC 32.5 g/dl (32.0-36.5); MEAN CORPUSCULAR VOLUME 91.8 fl (80.0-96.0); MONO # 0.6 10^3/uL (0.0-0.8); MONO % 6.2 % (0.0-5.0); NEUTROPHILS # 6.7 10^3/uL (1.5-8.5); NEUTROPHILS % 66.8 % (36.0-66.0); PLATELET COUNT, AUTOMATED 361 10^3/uL (150-450); RED BLOOD COUNT 4.49 10^6/uL (4.00-5.40); WHITE BLOOD COUNT 10.1 10^3/uL (4.0-10.0)
[2018-11-06 01:07] LABS: INR 0.91
[2018-11-06 01:14] LABS: BLOOD UREA NITROGEN 13 MG/DL (7-18); C REACTIVE PROTEIN QUANTITATIV 0.57 MG/DL (0.00-0.30); CALCIUM LEVEL 8.7 MG/DL (8.5-10.1); CARBON DIOXIDE LEVEL 20 MEQ/L (21-32); CHLORIDE LEVEL 113 MEQ/L (98-107); GLOMERULAR FILTRATION RATE > 60.0 (>60); GLUCOSE, FASTING 81 MG/DL (70-100); POTASSIUM SERUM 3.8 MEQ/L (3.5-5.1); SODIUM LEVEL 141 MEQ/L (136-145)
--- NOTE | 2018-11-06 01:29 | REPVR ---
EXAM: XR Skull, Less Than 4 Views EXAM DATE/TIME: 11/06/2018 1:06 AM CLINICAL HISTORY: 28 years old, female; Headache; Shunt pain; Prior surgery; Surgery date: 1-6 months TECHNIQUE: Imaging protocol: XR of the skull, less than 4 views. COMPARISON: CT Head without contrast 11/05/2018 11:47:[address] Head without contrast 07/23/2018 5:53 PM FINDINGS: Tubes, catheters and devices: There are bilateral frontal approach ventriculoperitoneal shunt catheters in place, and the tubes are intact without kinking. Sinuses: The sinuses are well aerated. Bones/joints: The skull is intact. Soft tissues: Unremarkable. IMPRESSION: Bilateral frontal approach ventriculoperitoneal shunt catheters in place, and the tubes are intact without kinking. EXAM: XR Soft Tissue Neck EXAM DATE/TIME: 11/06/2018 1:06 AM CLINICAL HISTORY: 28 years old, female; Headache; Shunt pain; Prior surgery; Surgery date: 1-6 months TECHNIQUE: Imaging protocol: XR of the soft tissues of the neck. COMPARISON: CT Head without contrast 11/05/2018 11:47:[address] Head without contrast 07/23/2018 5:53 PM [place] - SHUNT SERIES 07/23/2018 5:54:39 PM FINDINGS: Tubes, catheters and devices: The bilateral ventriculoperitoneal shunt tubes are intact without kinking. Airway: No abnormal airway narrowing. Soft tissues: Unremarkable. No prevertebral soft tissue swelling. Bones/joints: Unremarkable. IMPRESSION: Bilateral ventriculoperitoneal shunt catheters in place, and the tubes are intact without kinking. EXAM: XR Chest, 1 View EXAM DATE/TIME: 11/06/2018 1:06 AM CLINICAL HISTORY: 28 years old, female; Headache; Shunt pain; Prior surgery; Surgery date: 1-6 months TECHNIQUE: Imaging protocol: XR of the chest Views: 1 view. COMPARISON: [place] - SHUNT SERIES 07/23/2018 5:54:39 PM FINDINGS: Tubes, catheters and devices: Bilateral ventriculoperitoneal shunt catheters are noted coursing down the mid chest, and it is somewhat difficult to visualize the catheters in the chest due to silhouetting from the mediastinum, heart, and thoracic spine. The visualized portions of the catheters are intact without kinking. Lungs: Unremarkable. No consolidation. No pulmonary edema. Pleural space: Unremarkable. No pleural effusion or pneumothorax is identified. Heart/Mediastinum: Unremarkable. No cardiomegaly. Bones/joints: Unremarkable. IMPRESSION: Bilateral ventriculoperitoneal shunt catheters in place as described above. EXAM: XR Abdomen, 1 View EXAM DATE/TIME: 11/06/2018 1:06 AM CLINICAL HISTORY: 28 years old, female; Headache; Shunt pain; Prior surgery; Surgery date: 1-6 months TECHNIQUE: Imaging protocol: XR of the abdomen. Views: Frontal supine view of the abdomen. 1 View. COMPARISON: CT ABD/PEL W/IV ORAL CONTRAST 07/23/2018 7:50:31 PM [place] - SHUNT SERIES 07/23/2018 5:54:39 PM FINDINGS: Tubes, catheters and devices: The right ventriculoperitoneal shunt catheter terminates in the left lower quadrant of the abdomen and the left ventriculoperitoneal shunt catheter terminates in the left side of the pelvis without kinking or disruption. There is a 9.8 cm fragment of tubing just inferior to the right hepatic lobe, which can also be seen in the prior CT scan on 07/23/2018. Gastrointestinal tract: Unremarkable. No bowel dilation is noted. Bones/joints: Unremarkable for age. IMPRESSION: Intact bilateral ventriculoperitoneal shunt catheters in place without kinking. Electronically signed by: Charlie Bains On 11/06/2018 01:29:03 AM
[2018-11-06] MEDS ORDERED: REGL10TA6 PO (01:59)
[2018-11-06] MEDS ORDERED: OXYCODONE/APAP 5MG/325MG(BULK FOR ED) 1 TABLET PO ONE (02:00)
[2018-11-06 02:20] VITALS: BP 133/77
== END 2018-11-06 02:26 | disposition home or self-care (01) ==
LOC: M ED 22:34
DX: R51 Headache (principal); G93.2 Benign intracranial hypertension; Z98.2 Presence of cerebrospinal fluid drainage device; Z88.2 Allergy status to sulfonamides; Z88.8 Allergy status to other drugs, medicaments and biological substances
CPT/HCPCS: 70450; 75809; 80048; 81001; 85025; 85610; 85730; 86140; 87040; 96361; 96374; 96375; 96376; 99284; J1200; J1885; J2270; J2765

== ENCOUNTER 2019-03-10 17:09 | Emergency (ER) | payer OTHER ==
[~2019-03-10] VITALS: Ht 157.5 cm; Wt 109.1 kg
[~2019-03-10 17:09] MED LIST changes: -MAGN400T; +MAGN400T3; -METF750T PO; +METF750T36 PO
[2019-03-10] MEDS ORDERED: MELA3TAB41 (17:22)
[2019-03-10] MEDS ORDERED: VITA500T9 (17:22)
[2019-03-10] MEDS ORDERED: INDO-16 (17:22)
[2019-03-10] MEDS ORDERED: TIZA4TAB4 (17:22)
[2019-03-10] MEDS ORDERED: METF850T4 (17:22)
[2019-03-10] MEDS ORDERED: FOLI1TAB11 (17:22)
[2019-03-10] MEDS ORDERED: FERR325T18 (17:22)
[2019-03-10] MEDS ORDERED: DICY20TA11 (17:22)
--- NOTE | 2019-03-10 18:00 | REPVR ---
PROCEDURE INFORMATION: Exam: CT Head Without Contrast Exam date and time: 03/10/2019 5:34 PM Age: 28 years old Clinical indication: Pain; Headache; Additional info: Headache/r/o intracranial pressure TECHNIQUE: Imaging protocol: Computed tomography of the head without contrast. Radiation optimization: All CT scans at this facility use at least one of these dose optimization techniques: automated exposure control; mA and/or kV adjustment per patient size (includes targeted exams where dose is matched to clinical indication); or iterative reconstruction. COMPARISON: CT Head without contrast 11/05/2018 11:47 PM FINDINGS: Tubes, catheters and devices: There are intact right and left frontal approach ventriculoperitoneal shunt catheter is entering into the frontal horns and terminating near the foramina of Monro. Findings are stable and unchanged in position in comparison to the prior study. Brain: Normal. No hemorrhage. Unremarkable white matter. No mass effect. Ventricles: Normal. No ventriculomegaly. Bones/joints: Unremarkable. No acute fracture. Sinuses: Visualized sinuses are unremarkable. No fluid levels. Mastoid air cells: Visualized mastoid air cells are well aerated. Soft tissues: Unremarkable. IMPRESSION: No acute findings. No significant interval change in comparison to the prior study. Electronically signed by: Clyde Bishop On 03/10/2019 18:00:35 PM
[2019-03-10] MEDS ORDERED: METOCLOPRAMIDE INJ 10MG/2ML VIAL (J2765) IV ONE (18:15)
[2019-03-10 18:30] LABS: BASO # 0.1 10^3/uL (0.0-0.2); BASO % 0.4 % (0.0-1.0); EOS # 0.1 10^3/uL (0.0-0.5); EOS % 1.1 % (0.0-3.0); HEMOGLOBIN 14.2 g/dl (12.0-15.5); LYMPH % 16.6 % (24.0-44.0); MEAN CORPUSCULAR HEMOGLOBIN 29.9 pg (27.0-33.0); MEAN CORPUSCULAR VOLUME 90.5 fl (80.0-96.0); MONO # 0.8 10^3/uL (0.0-0.8); MONO % 6.3 % (0.0-5.0); NEUTROPHILS # 9.3 10^3/uL (1.5-8.5); NEUTROPHILS % 75.3 % (36.0-66.0); PLATELET COUNT, AUTOMATED 341 10^3/uL (150-450); RED BLOOD COUNT 4.75 10^6/uL (4.00-5.40); WHITE BLOOD COUNT 12.3 10^3/uL (4.0-10.0)
[2019-03-10] MEDS ORDERED: HYDROMORPHONE HCL 0.5 MG/ 0.5 ML SYRINGE (J1170 PER 1) IV PRN (18:30)
[2019-03-10 18:51] LABS: BLOOD UREA NITROGEN 23 MG/DL (7-18); C REACTIVE PROTEIN QUANTITATIV 0.94 MG/DL (0.00-0.30); CALCIUM LEVEL 9.2 MG/DL (8.5-10.1); CARBON DIOXIDE LEVEL 22 MEQ/L (21-32); CHLORIDE LEVEL 106 MEQ/L (98-107); CREATININE FOR GFR 0.82 MG/DL (0.55-1.30); GLOMERULAR FILTRATION RATE > 60.0 (>60); GLUCOSE, FASTING 88 MG/DL (70-100); SODIUM LEVEL 139 MEQ/L (136-145)
[2019-03-10 18:52] LABS: HCG, SERUM QUALITATIVE NEGATIVE (NEGATIVE)
[2019-03-10] MEDS ORDERED: PROMETHAZINE INJ 25 MG/ML VIAL (J2550) As Ordered ONE (19:59)
[2019-03-10] MEDS ORDERED: PROMETHAZINE INJ 25 MG/ML VIAL (J2550) IV ONE (20:00)
[2019-03-10] MEDS ORDERED: ONDA4TAB6 PO (20:08)
[2019-03-10] MEDS ORDERED: NORC1TAB8 PO ×2 (20:08→20:20)
[2019-03-10] MEDS ORDERED: NORCO 5/325MG TABLET (BULK FOR ED) PO ONE (20:15)
[2019-03-10 20:29] VITALS: BP 149/82
--- NOTE | 2019-03-11 07:24 | REP ---
SHUNT SERIES: AP and lateral views of the skull, AP view of the chest, and AP views of the abdomen and pelvis are performed to evaluate ventriculoperitoneal shunts. Once again, compared to a prior study of 11/05/2018, there are bilateral frontal ventriculoperitoneal shunts present. The tubes appear intact with no kinking or discontinuity. Visualized lung maddox are clear. Metallic clips are seen in the right upper quadrant. There is an adjacent segment of catheter which is unchanged in position. The distal ends of the shunts are in the left pelvis. Bowel gas pattern is normal. Visualized osseous structures are unremarkable. IMPRESSION: Bilateral ventriculoperitoneal shunt catheters again noted in place, unchanged in position with no discontinuity or kinking. Electronically Signed by Rex Roa MD 03/11/2019 12:53 P
== END 2019-03-10 20:41 | disposition home or self-care (01) ==
LOC: EDBD 17:09 → M ED 17:09
DX: R51 Headache (principal); G89.29 Other chronic pain; R11.0 Nausea; G93.2 Benign intracranial hypertension; E28.2 Polycystic ovarian syndrome; K58.9 Irritable bowel syndrome, unspecified; Z88.2 Allergy status to sulfonamides; Z88.8 Allergy status to other drugs, medicaments and biological substances; Z98.2 Presence of cerebrospinal fluid drainage device; Z79.899 Other long term (current) drug therapy; Z79.84 Long term (current) use of oral hypoglycemic drugs
CPT/HCPCS: 70450; 75809; 80048; 84703; 85025; 86140; 96374; 96375; 99284; J1170; J2765

== ENCOUNTER 2019-06-07 16:56 | Emergency (ER) | payer OTHER ==
[~2019-06-07] VITALS: Ht 157.5 cm; Wt 106.4 kg
[~2019-06-07 16:56] MED LIST changes: +DICY20TA11; +FERR325T18; -FLUO20CA19 PO; +FLUO20CA22 PO; +FOLI1TAB11; +INDO-16; +MELA3TAB62; +METF850T4; +ONDA4TAB6 PO; +TIZA4TAB4; +VITA500T9
[2019-06-07] MEDS ORDERED: ONDANSETRON 4MG/2ML VIAL (J2405) IV ONE (17:30)
[2019-06-07] MEDS ORDERED: ASPIRIN 81 MG CHEW TABLET PO ONE (17:30)
[2019-06-07] MEDS ORDERED: MUCI600T31 (17:37)
[2019-06-07] MEDS ORDERED: TOPI200T7 (17:37)
[2019-06-07] MEDS ORDERED: METH1TAB40 (17:37)
[2019-06-07] MEDS ORDERED: BENZ-18 (17:37)
[2019-06-07 18:35] LABS: BASO # 0.1 10^3/uL (0.0-0.2); BASO % 0.5 % (0.0-1.0); EOS # 0.2 10^3/uL (0.0-0.5); EOS % 1.8 % (0.0-3.0); HEMATOCRIT 42.6 % (36.0-47.0); HEMOGLOBIN 14.2 g/dl (12.0-15.5); LYMPH # 2.2 10^3/uL (1.5-5.0); LYMPH % 16.7 % (24.0-44.0); MEAN CORPUSCULAR HEMOGLOBIN 30.7 pg (27.0-33.0); MEAN CORPUSCULAR HGB CONC 33.3 g/dl (32.0-36.5); MEAN CORPUSCULAR VOLUME 92.2 fl (80.0-96.0); MONO # 0.8 10^3/uL (0.0-0.8); MONO % 6.1 % (0.0-5.0); NEUTROPHILS # 9.7 10^3/uL (1.5-8.5); NEUTROPHILS % 74.5 % (36.0-66.0); PLATELET COUNT, AUTOMATED 390 10^3/uL (150-450); RED BLOOD COUNT 4.62 10^6/uL (4.00-5.40); WHITE BLOOD COUNT 13.1 10^3/uL (4.0-10.0)
[2019-06-07 18:51] LABS: PROTHROMBIN TIME 11.9 SECONDS (11.8-14.0)
[2019-06-07 18:52] LABS: PARTIAL THROMBOPLASTIN TIME 30.1 SECONDS (25.0-38.4)
--- NOTE | 2019-06-07 18:54 | ECGEPIP ---
[facility] - ED Test Date: 2019-06-07 Pat Name: NIMA DIAZ Department: Room: - Gender: Female Outreach Liaison: ashlie : 1990 Requested By: JALEESA HUYNH INSTRUMENT/CONTROL TECHNICIAN Order Number: [id number] Reading MD: Dmitry Arnold Measurements Intervals [place] Rate: 106 P: 36 OK: 136 QRS: 48 QRSD: 88 T: 29 QT: 348 QTc: 462 Interpretive Statements SINUS TACHYCARDIA Comparison tracing not on file Electronically Signed on 06-07-2019 18:54:32 EDT by Dmitry Arnold
[2019-06-07 19:05] LABS: HCG, SERUM QUALITATIVE NEGATIVE (NEGATIVE)
[2019-06-07 19:14] LABS: ALBUMIN 3.7 GM/DL (3.2-5.2); ALT/SGPT 29 U/L (12-78); BILIRUBIN,TOTAL 0.1 MG/DL (0.2-1.0); BLOOD UREA NITROGEN 12 MG/DL (7-18); CALCIUM LEVEL 8.6 MG/DL (8.5-10.1); CARBON DIOXIDE LEVEL 21 MEQ/L (21-32); CHLORIDE LEVEL 112 MEQ/L (98-107); CK-MB VALUE MASS < 1.0 NG/ML (<3.6); CPK CREATINE PHOSPHOKINASE 53 U/L (26-192); CREATININE FOR GFR 0.68 MG/DL (0.55-1.30); GLOMERULAR FILTRATION RATE > 60.0 (>60); GLUCOSE, FASTING 93 MG/DL (70-100); MB/CK RELATIVE INDEX 1.89 (< OR =4); POTASSIUM SERUM 3.8 MEQ/L (3.5-5.1); SODIUM LEVEL 139 MEQ/L (136-145); THYROID STIMULATING HORMONE 0.879 uIU/ML (0.358-3.740); TOTAL PROTEIN 7.3 GM/DL (6.4-8.2); TROPONIN I < 0.02 NG/ML (< 0.10)
[2019-06-07 19:37] LABS: D-DIMER QUANT < 270.0 ng/ml (<500)
[2019-06-07] MEDS ORDERED: NS 1,000 ML IV ONE (19:45)
--- NOTE | 2019-06-07 20:07 | REPVR ---
PROCEDURE INFORMATION: Exam: XR Chest, 2 Views Exam date and time: 06/07/2019 7:52 PM Age: 29 years old Clinical indication: Pain and device placement; Shunt placement; Cough and fever; Other: With cough and SOB; Prior surgery; Surgery date: 6+ months; Surgery type: Home Care Music Therapist shunt; Patient HX: Headache, fever, cough, SOB; Additional info: Headache, evp strategy shunt TECHNIQUE: Imaging protocol: XR of the chest Views: 2 views. COMPARISON: CR Abdomen,Flat Upright,PA CHEST 10/29/2017 4:34 PM FINDINGS: Lungs: There is no pulmonary vascular congestion. There is no evidence of focal parenchymal consolidation. Pleural space: There are no pleural effusions. There is no evidence of pneumothorax. Heart/Mediastinum: The cardiac silhouette is within normal limits. Bones/joints: No acute osseous abnormality is identified. IMPRESSION: No acute cardiopulmonary disease identified. Electronically signed by: Pamella Oliver On 06/07/2019 20:07:12 PM
[2019-06-07] MEDS: KETOROLAC 30 MG/ML VIAL (J1885) IV ONE ×2 (20:16→20:39)
[2019-06-07] MEDS ORDERED: MORPHINE 2 MG/ML 1ML VIAL (J2270) IV ONE (20:30)
--- NOTE | 2019-06-07 20:59 | REPVR ---
PROCEDURE INFORMATION: Exam: XR Shunt Series With 4 XR Procedures Exam date and time: 06/07/2019 7:52 PM Age: 29 years old Clinical indication: Fever and malaise or fatigue; Headache not specified; Fever and shortness of breath; Chest pain; Other: SOB; Other: None; Prior surgery; Surgery date: 6+ months; Surgery type: [employer] shunt; Additional info: Headache, tank tender shunt TECHNIQUE: Imaging protocol: XR Shunt Series was performed with skull less than 4 views, neck 1 view, chest 1 view, and abdomen 1 view. COMPARISON: CT Head without contrast 03/10/2019 5:39 PM FINDINGS: Tubes, catheters and devices: Ventriculoperitoneal shunts are seen bilaterally. The tips of the catheters are both located in the dependent pelvis. The catheters appear intact bilaterally. Catheter or catheter fragment overlying the right upper quadrant is of uncertain etiology. Correlate with surgical history and prior imaging. Sinuses: Visualized paranasal sinuses are well aerated. Airway: Upper airway and trachea are unremarkable in the neck and chest. Lungs: At the time of dictation, no chest radiograph was included in the shunt series. Review chest radiograph dated 06/07/2019 demonstrates intact SCREENING UNIT REGISTERED NURSE shunt catheters at the level of the chest. Gastrointestinal tract: Nonobstructive bowel gas pattern. Intraperitoneal space: No free air detected. Organs: Cholecystectomy clips. Bones/joints: Normal. No fracture. No dislocation. IMPRESSION: SCREENING UNIT REGISTERED NURSE shunt catheters bilaterally, as above. Electronically signed by: Pamella Oliver On 06/07/2019 20:58:44 PM
[2019-06-07 21:40] VITALS: BP 131/79
== END 2019-06-07 21:53 | disposition home or self-care (01) ==
LOC: M ED 16:56
DX: R05 Cough (principal); R06.02 Shortness of breath; R51 Headache; G93.2 Benign intracranial hypertension; Z98.2 Presence of cerebrospinal fluid drainage device; R56.9 Unspecified convulsions; K58.9 Irritable bowel syndrome, unspecified; E28.2 Polycystic ovarian syndrome; Z86.19 Personal history of other infectious and parasitic diseases; Z88.2 Allergy status to sulfonamides; Z88.1 Allergy status to other antibiotic agents; Z88.8 Allergy status to other drugs, medicaments and biological substances; Z79.899 Other long term (current) drug therapy; Z79.84 Long term (current) use of oral hypoglycemic drugs
CPT/HCPCS: 71046; 75809; 80053; 82550; 82553; 84443; 84484; 84703; 85025; 85379; 85610; 85730; 87486; 87581; 87633; 87798; 93005; 96361; 96374; 96375; 99284; J2270; J2405; U0002

== ENCOUNTER 2019-06-13 11:49 | Emergency (ER) | payer OTHER ==
[~2019-06-13] VITALS: Ht 157.5 cm; Wt 107.7 kg
[~2019-06-13 11:49] MED LIST changes: +BENZ-18; +CYCL-707; -CYCL10TA; +METH1TAB40; +MUCI600T31; +TOPI200T7
[2019-06-13] MEDS ORDERED: NS 1,000 ML IV ONE (13:00)
[2019-06-13 13:33] LABS: BASO % 0.4 % (0.0-1.0); EOS # 0.2 10^3/uL (0.0-0.5); EOS % 2.3 % (0.0-3.0); HEMATOCRIT 43.3 % (36.0-47.0); HEMOGLOBIN 14.4 g/dl (12.0-15.5); LYMPH # 1.9 10^3/uL (1.5-5.0); MEAN CORPUSCULAR HEMOGLOBIN 31.4 pg (27.0-33.0); MEAN CORPUSCULAR HGB CONC 33.3 g/dl (32.0-36.5); MEAN CORPUSCULAR VOLUME 94.5 fl (80.0-96.0); MONO # 0.7 10^3/uL (0.0-0.8); MONO % 7.5 % (0.0-5.0); NEUTROPHILS # 6.5 10^3/uL (1.5-8.5); NEUTROPHILS % 69.5 % (36.0-66.0); PLATELET COUNT, AUTOMATED 389 10^3/uL (150-450); RED BLOOD COUNT 4.58 10^6/uL (4.00-5.40); WHITE BLOOD COUNT 9.3 10^3/uL (4.0-10.0)
[2019-06-13] MEDS ORDERED: ONDANSETRON 4MG/2ML VIAL (J2405) IV ONE (13:45)
[2019-06-13] MEDS ORDERED: KETOROLAC 30 MG/ML VIAL (J1885) IV ONE (14:00)
[2019-06-13] MEDS ORDERED: ACETAMINOPHEN 500 MG TAB PO ONE (14:00)
[2019-06-13 14:07] LABS: ALBUMIN 3.8 GM/DL (3.2-5.2); ALT/SGPT 63 U/L (12-78); BILIRUBIN,DIRECT 0.1 MG/DL (0.0-0.2); BILIRUBIN,TOTAL 0.2 MG/DL (0.2-1.0); BLOOD UREA NITROGEN 12 MG/DL (7-18); CARBON DIOXIDE LEVEL 23 MEQ/L (21-32); CHLORIDE LEVEL 108 MEQ/L (98-107); CK-MB VALUE MASS < 1.0 NG/ML (<3.6); CPK CREATINE PHOSPHOKINASE 49 U/L (26-192); CREATININE FOR GFR 0.67 MG/DL (0.55-1.30); GLOMERULAR FILTRATION RATE > 60.0 (>60); GLUCOSE, FASTING 82 MG/DL (70-100); HCG, SERUM QUALITATIVE NEGATIVE (NEGATIVE); LIPASE 118 U/L (73-393); MB/CK RELATIVE INDEX 2.04 (< OR =4); POTASSIUM SERUM 4.1 MEQ/L (3.5-5.1); SODIUM LEVEL 139 MEQ/L (136-145); TOTAL PROTEIN 7.4 GM/DL (6.4-8.2); TROPONIN I < 0.02 NG/ML (< 0.10)
[2019-06-13 15:19] VITALS: BP 135/91
--- NOTE | 2019-06-14 19:23 | ECGEPIP ---
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
== END 2019-06-13 15:22 | disposition home or self-care (01) ==
LOC: M ED 11:49
DX: R11.2 Nausea with vomiting, unspecified (principal); R10.10 Upper abdominal pain, unspecified; R51 Headache; R50.9 Fever, unspecified; G93.2 Benign intracranial hypertension; E28.2 Polycystic ovarian syndrome; Z98.2 Presence of cerebrospinal fluid drainage device; Z88.2 Allergy status to sulfonamides; Z88.8 Allergy status to other drugs, medicaments and biological substances; Z79.899 Other long term (current) drug therapy; Z79.84 Long term (current) use of oral hypoglycemic drugs
CPT/HCPCS: 80048; 80076; 81001; 82550; 82553; 83605; 83690; 84484; 84703; 85025; 87507; 93005; 96361; 96374; 96375; 99284; J1885; J2405

== ENCOUNTER 2019-07-07 12:51 | Emergency (ER) | payer OTHER ==
[~2019-07-07] VITALS: Ht 157.5 cm; Wt 109.6 kg
[2019-07-07] MEDS ORDERED: ONDANSETRON 4 MG ORAL DISINTEGRATING TAB PO ONE (14:45)
[2019-07-07 14:59] LABS: BASO # 0.1 10^3/uL (0.0-0.2); EOS # 0.2 10^3/uL (0.0-0.5); EOS % 2.9 % (0.0-3.0); HEMATOCRIT 41.5 % (36.0-47.0); HEMOGLOBIN 13.7 g/dl (12.0-15.5); LYMPH # 1.8 10^3/uL (1.5-5.0); LYMPH % 22.3 % (24.0-44.0); MEAN CORPUSCULAR HEMOGLOBIN 31.6 pg (27.0-33.0); MEAN CORPUSCULAR VOLUME 95.8 fl (80.0-96.0); MONO # 0.6 10^3/uL (0.0-0.8); MONO % 7.9 % (0.0-5.0); NEUTROPHILS # 5.2 10^3/uL (1.5-8.5); NEUTROPHILS % 65.3 % (36.0-66.0); PLATELET COUNT, AUTOMATED 377 10^3/uL (150-450); RED BLOOD COUNT 4.33 10^6/uL (4.00-5.40)
[2019-07-07 15:09] LABS: PARTIAL THROMBOPLASTIN TIME 26.9 SECONDS (25.0-38.4); PROTHROMBIN TIME 12.9 SECONDS (11.8-14.0)
[2019-07-07 15:30] LABS: ERYTHROCYTE SEDIMENTATION RATE 13 mm/hr (0-20)
[2019-07-07] MEDS ORDERED: METOCLOPRAMIDE INJ 10MG/2ML VIAL (J2765 PER 1) IV ONE (16:30)
[2019-07-07] MEDS ORDERED: KETOROLAC 30 MG/ML 1ML VIAL IV ONE (17:45)
[2019-07-07] MEDS ORDERED: ACETAMINOPHEN TAB 650MG DOSE (2X325MG) PO ONE (17:45)
--- NOTE | 2019-07-07 17:49 | REP ---
REASON: Headache. COMPARISON: 4 weeks ago. Shunt catheters are unchanged from 06/07/2019. There are no new abnormalities or additional findings. Electronically Signed by Angel Pulliam DO 07/07/2019 06:12 P
[2019-07-07] MEDS ORDERED: KETO10TAB PO (17:57)
[2019-07-07] MEDS ORDERED: ONDA4TAB6 PO (17:57)
[2019-07-07 18:06] VITALS: BP 123/82
== END 2019-07-07 18:12 | disposition home or self-care (01) ==
LOC: M ED 12:51
DX: S06.0X0A Concussion without loss of consciousness, initial encounter (principal); W22.8XXA Striking against or struck by other objects, initial encounter; Y92.89 Other specified places as the place of occurrence of the external cause; G93.2 Benign intracranial hypertension; Z98.2 Presence of cerebrospinal fluid drainage device; R56.9 Unspecified convulsions; K58.9 Irritable bowel syndrome, unspecified; E28.2 Polycystic ovarian syndrome; M54.9 Dorsalgia, unspecified; F41.9 Anxiety disorder, unspecified; F32.9 Major depressive disorder, single episode, unspecified; Z88.2 Allergy status to sulfonamides; Z88.8 Allergy status to other drugs, medicaments and biological substances; Z79.899 Other long term (current) drug therapy; Z79.84 Long term (current) use of oral hypoglycemic drugs
CPT/HCPCS: 75809; 80047; 84702; 85025; 85610; 85652; 85730; 86140; 96374; 96375; 99284; J1885; J2765; Q0162

== ENCOUNTER 2019-08-14 17:59 | Emergency (ER) | payer OTHER ==
[~2019-08-14] VITALS: Ht 157.5 cm; Wt 104.5 kg
[~2019-08-14 17:59] MED LIST changes: -PROHANCE 279.3MG/ML 15ML VIAL As Ordered ONE
[2019-08-14] MEDS ORDERED: NS 500 ML IV ONE (19:00)
[2019-08-14] MEDS ORDERED: METOCLOPRAMIDE INJ 10MG/2ML VIAL (J2765 PER 1) IV ONE (19:00)
[2019-08-14 19:31] LABS: BASO # 0.1 10^3/uL (0.0-0.2); BASO % 0.5 % (0.0-1.0); EOS # 0.2 10^3/uL (0.0-0.5); EOS % 1.4 % (0.0-3.0); HEMOGLOBIN 13.4 g/dl (12.0-15.5); LYMPH # 2.2 10^3/uL (1.5-5.0); LYMPH % 17.4 % (24.0-44.0); MEAN CORPUSCULAR HEMOGLOBIN 30.9 pg (27.0-33.0); MEAN CORPUSCULAR HGB CONC 32.7 g/dl (32.0-36.5); MEAN CORPUSCULAR VOLUME 94.7 fl (80.0-96.0); MONO # 0.8 10^3/uL (0.0-0.8); MONO % 5.9 % (0.0-5.0); NEUTROPHILS # 9.4 10^3/uL (1.5-8.5); NEUTROPHILS % 74.5 % (36.0-66.0); PLATELET COUNT, AUTOMATED 332 10^3/uL (150-450); RED BLOOD COUNT 4.33 10^6/uL (4.00-5.40); WHITE BLOOD COUNT 12.7 10^3/uL (4.0-10.0)
--- NOTE | 2019-08-14 19:41 | REPVR ---
PROCEDURE INFORMATION: Exam: MR Head Without and With Contrast Exam date and time: 08/14/2019 7:09 PM Age: 29 years old Clinical indication: Other: Sz; Prior surgery; Surgery date: 6+ months; Patient HX: Multiple over 32 hours seizure/headache HX of bilateral [place] shunts TECHNIQUE: Imaging protocol: MR of the head without and with intravenous contrast. Contrast material: PROHANCE; Contrast volume: 10 ml; Contrast route: 22; COMPARISON: MRI-Brain without Contrast 01/05/2018 8:33 AM FINDINGS: Limitations: Examination is mild limited by motion artifact. Brain: Bilateral frontal approach ventriculostomy catheters. No ventriculomegaly. Stable appearance of ventricular size. No evidence of acute intracranial hemorrhage or extra-axial fluid collection. No evidence of mass effect or midline shift. No white matter abnormalities. No restricted diffusion to suggest acute infarct. No areas of abnormal intracranial enhancement. Bones/joints: Unremarkable. Sinuses: Unremarkable. Mastoid air cells: No mastoid effusion. Orbits: Unremarkable. Soft tissues: Unremarkable. IMPRESSION: No acute intracranial findings. Electronically signed by: Mil Bell On 08/14/2019 19:40:42 PM
[2019-08-14 19:54] LABS: BLOOD UREA NITROGEN 9 MG/DL (7-18); CALCIUM LEVEL 8.7 MG/DL (8.5-10.1); CARBON DIOXIDE LEVEL 22 MEQ/L (21-32); CHLORIDE LEVEL 108 MEQ/L (98-107); CREATININE FOR GFR 0.73 MG/DL (0.55-1.30); GLOMERULAR FILTRATION RATE > 60.0 (>60); GLUCOSE, FASTING 85 MG/DL (70-100); MAGNESIUM LEVEL 1.9 MG/DL (1.8-2.4); POTASSIUM SERUM 3.5 MEQ/L (3.5-5.1); SODIUM LEVEL 139 MEQ/L (136-145)
[2019-08-14] MEDS ORDERED: NS IV ONE (20:30)
[2019-08-14] MEDS ORDERED: KETAMINE HCL IV ONE (20:30)
--- NOTE | 2019-08-14 21:12 | REPVR ---
PROCEDURE INFORMATION: Exam: XR Shunt Series With 4 XR Procedures Exam date and time: 08/14/2019 7:20 PM Age: 29 years old Clinical indication: Other: Headache; Other: " TECHNIQUE: Imaging protocol: XR Shunt Series was performed with skull less than 4 views, neck 1 view, chest 1 view, and abdomen 1 view. COMPARISON: MRI BRAIN wo/w 08/14/2019 4:35 PM FINDINGS: Tubes, catheters and devices: Chronic overlapping catheter fracture fragments involving the right ventriculoperitoneal catheter projecting over the right upper quadrant, of unknown clinical significance. Left-sided [employer]PARER shunt catheter is intact. Inferior complete tips of the catheters both terminate within the left inferior abdominal quadrant. Sinuses: Visualized paranasal sinuses are well aerated. Airway: Upper airway and trachea are unremarkable in the neck and chest. Lungs: No consolidations. Gastrointestinal tract: Bowel is unremarkable. Bones/joints: Normal. No fracture. No dislocation. Soft tissues: Unremarkable. IMPRESSION: Chronic overlapping catheter fracture fragments involving the right ventriculoperitoneal catheter projecting over the right upper quadrant, of unknown clinical significance. Consider correlation with abdominal cross-sectional imaging (CT), if clinically indicated. Electronically signed by: Mil Bell On 08/14/2019 21:12:18 PM
[2019-08-14 21:36] VITALS: BP 120/85
== END 2019-08-14 21:45 | disposition home or self-care (01) ==
LOC: M ED 17:59
DX: R51 Headache (principal); G40.309 Generalized idiopathic epilepsy and epileptic syndromes, not intractable, without status epilepticus; G93.2 Benign intracranial hypertension; Z88.2 Allergy status to sulfonamides; Z88.1 Allergy status to other antibiotic agents; Z88.8 Allergy status to other drugs, medicaments and biological substances; Z98.2 Presence of cerebrospinal fluid drainage device; Z79.899 Other long term (current) drug therapy; Z79.84 Long term (current) use of oral hypoglycemic drugs; E22.1 Hyperprolactinemia
CPT/HCPCS: 70553; 75809; 80048; 83735; 85025; 93041; 96365; 96375; 99285; A9576; J2765

== ENCOUNTER → 2019-08-14 | Outpatient (CLI) | payer OTHER ==
[~2019-08-14] MED LIST changes: +PROHANCE 279.3MG/ML 15ML VIAL As Ordered ONE
--- NOTE | 2019-08-15 09:03 | REP ---
MRI brain technique: 08/14/2019. Indication: Headache. Seizure. Hyperprolactinemia. Technique: Multiplanar short and long tier sequences of the brain and into the tear were performed including post gadolinium imaging. Comparison: 01/05/2018. Findings: Image quality is degraded by patient motion. There are no areas of restricted effusion. No pathologic gadolinium enhancement is present. There is no intracranial mass effect or hydrocephalous. No significant areas of abnormal signal are present within the brainstem or brain parenchyma. No focal abnormalities of the sellar or suprasellar cistern are detected. Impression: No acute intracranial process. No pituitary/suprasellar abnormalities detected. Electronically Signed by Uche Suarez DO 08/15/2019 08:54 A
== END ==
LOC: M RAD 15:36
PROVIDERS: ATTEND Internal Medicine Endocrinology, Diabetes & Metabolism
DX: E22.1 Hyperprolactinemia (principal)

== ENCOUNTER → 2019-12-11 | Outpatient (CLI) | payer OTHER ==
[~2019-12-11] MED LIST changes: +MELA3TAB30; -MELA3TAB62
--- NOTE | 2019-12-15 10:56 | REP ---
BILATERAL BREAST ULTRASOUND HISTORY: Bilateral lumps. TECHNIQUE: Real-time sonographic evaluation of bilateral breasts performed at the site of a palpable abnormality in each breast. FINDINGS: On the left, the region of 4 o'clock is scanned and on the right, the region of 3 o'clock is scanned, at the site of the respective palpable lumps. There is underlying fibroglandular tissue seen sonographically with no discrete cystic or solid mass. No dilated ducts are seen. IMPRESSION: No cystic or solid mass at the site of the reported palpable abnormality in the right breast at 3 o'clock and left breast at 4 o'clock. BI-RADS Category 2 benign. A negative ultrasound should not detour biopsy if there is a clinically suspicious palpable mass present. MTDD
== END ==
LOC: M WHC 06:36
PROVIDERS: ATTEND Obstetrics & Gynecology
DX: N63.10 Unspecified lump in the right breast, unspecified quadrant (principal); N63.20 Unspecified lump in the left breast, unspecified quadrant; Z80.3 Family history of malignant neoplasm of breast

== ENCOUNTER → 2020-02-10 | Outpatient (CLI) | payer OTHER ==
[~2020-02-10] MED LIST changes: +PROHANCE 279.3MG/ML 5ML VIAL As Ordered ONE
--- NOTE | 2020-02-10 19:07 | REPVR ---
PROCEDURE INFORMATION: Exam: MR Head Without and With Contrast Exam date and time: 02/10/2020 6:08 PM Age: 29 years old Clinical indication: Condition or disease; Other: Prolactemia; Prior surgery; Surgery date: 6+ months TECHNIQUE: Imaging protocol: MR of the head without and with intravenous contrast. Contrast material: PROHANCE; Contrast volume: 10 ml; Contrast route: INTRAVENOUS (IV); COMPARISON: MRI-Brain W/O FOLL BY WITH 08/14/2019 4:35 PM FINDINGS: No extra-axial fluid collection. Stable ventriculostomy catheters with decompressed ventricles. No midline shift or intracranial mass effect. Mild nonspecific white matter gliosis is stable from prior examination. No cerebral edema. No diffusion restriction. No pathologic intracranial enhancement. Normal intrinsic T1 shortening of the neurohypophysis. Adenohypophysis demonstrates normal size. No discrete sellar or suprasellar mass. Normal pituitary infundibulum. Mild paranasal sinus disease. No mastoid effusion. IMPRESSION: No acute intracranial abnormality. Electronically signed by: Arthur Webber On 02/10/2020 19:06:52 PM
== END ==
LOC: M RAD 16:57
PROVIDERS: ATTEND Obstetrics & Gynecology
DX: E22.1 Hyperprolactinemia (principal)

== ENCOUNTER → 2020-04-15 | Outpatient (REF) | payer OTHER ==
[~2020-04-15] MED LIST changes: -CLIN150C14 PO; +CLIN150C15 PO; +METH-1164; -METH1TAB40; -PROHANCE 279.3MG/ML 5ML VIAL As Ordered ONE
[2020-04-15 14:42] LABS: FREE T4 0.96 NG/DL (0.76-1.46); PROLACTIN 94.5 NG/ML; THYROID STIMULATING HORMONE 2.65 uIU/ML (0.358-3.740)
== END ==
LOC: M PLALAB 10:16
PROVIDERS: ATTEND Surgery
DX: N63.20 Unspecified lump in the left breast, unspecified quadrant (principal)

== ENCOUNTER → 2020-04-15 | Outpatient (CLI) | payer OTHER ==
[~2020-04-15] MED LIST changes: +CARA1TAB6 PO; +OMEP40CA97 PO; +PEPC1TAB5 PO
--- NOTE | 2020-04-15 13:10 | REP ---
INDICATION: N63.20 L BR MASS/N63.0/N64.52 NIPPLE DISCHARGE/PAIN; PRANEETH. BREAST LUMPS; N63.20 L BR MASS/N63.0 MASS/N64.52 NIPPLE DISCHARGE/PAIN. Patient reports numerous lumps in the inferior aspect of both breasts and AE lump in the upper-outer quadrant of the left breast. Present for approximately 1 year, the patient feels they are getting bigger. The patient also gives a history of intermittent nipple discharge bilaterally. This is been present for 2 years. COMPARISON: Mammography no comparison breast imaging. TECHNIQUE: A skin marker is affixed to the skin at the site of the palpable lump in the upper-outer quadrant of the left breast. Routine views are obtained of both breasts and augmented by 3D tomography. Targeted bilateral breast sonography is carried out. FINDINGS: The breast parenchyma is predominantly fat replaced. No dominant density is seen at the palpable lump site in the upper-outer quadrant of the left breast or elsewhere on either side. No architectural distortion or microcalcification is seen. No worrisome skin changes seen. 3D tomography shows no additional abnormality. The Volpara volumetric breast density pattern is a. Targeted bilateral breast sonography: Scanning through the subareolar regions and inferior aspect of each breast as well as the upper outer quadrant of the left and the superomedial quadrant of the right breast show fairly homogeneous fibroglandular tissue echogenicity. No cyst, mass, suspicious acoustic shadowing or architectural distortion is seen by ultrasound.. IMPRESSION: BIRADS/ACR category 1 negative bilateral mammographic and sonographic findings. This patient's Tyrer-Cuzick lifetime breast cancer risk assessment score is 17.2%. This mammogram was interpreted with the aid of an FDA-approved computer-aided detection system. The patient states she had a clinical breast exam in April 2020. The patient letter being requested is M2. RECOMMENDATION: Repeat screening mammography recommended 1 year (for women over 40). Clinical follow-up. <Electronically signed by Marlo Birmingham > 04/15/20 1115
== END ==
LOC: M WHC 10:26
PROVIDERS: ATTEND Surgery
DX: N63.20 Unspecified lump in the left breast, unspecified quadrant (principal); N64.52 Nipple discharge; N64.4 Mastodynia
CPT/HCPCS: 36415; 76642; 77066; 84146; 84439; 84443; G0279

== ENCOUNTER 2020-04-19 23:45 | Emergency (ER) | payer OTHER ==
[~2020-04-19] VITALS: Ht 157.5 cm; Wt 108.6 kg
[~2020-04-19 23:45] MED LIST changes: -CARA1TAB6 PO; -OMEP40CA97 PO; -PEPC1TAB5 PO
--- OUTSIDE RECORDS SUMMARY | 2020-04-19 23:54 | CCD | Continuity of Care Document ---
Author [facility] Address [address] [place] [address] Phone Support Name Relationship Address Phone Hospital Lab, [facility] [address] [place] [address] Maya [facility] [address] [place] [address] [facility] [address] [place] [address] Allergies, Adverse Reactions, Alerts Allergen Type Severity Reaction Last Updated Verified Status acetazolamide Allergy Hives April 04, 2020 9:11pm Yes Active Sulfa (Sulfonamide Antibiotics) Allergy April 04, 2020 9:11pm Yes Active Medications Medication Status Dose Units Route Directions Qty Days Start Date End Date Instructions Hydrocodone-Acetaminophen ([place] 5-325 T ablet) 5-325 mg tablet Discontinued 1 TAB PO Every 6 hours September 04, 2016 7:53pm October 09 6:02pm Ondansetron Discontinued 4 MG PO Every 6 hours September 04, 2016 7:53pm October 09, 2016 6:02pm Lorazepam Discontinued 0 .5 MG PO Three times a day PRN September 04, 2016 8:38 pm October 09, 2016 6:02pm Topiramate (Topamax) 25 MG tablet Di scontinued 150 MG PO 2 Times Per Day October 09, 2016 6:02pm December 15, 2018 2:58pm Furosemide (Lasix) 20 MG tablet Disc ontinued 20 MG PO O nce Per Day October 09, 2016 6:0 3pm February 23, 2017 7:40pm Naproxen Sodium (Aleve) 220 MG tablet Discontinued 660 MG PO NEEDED October 09, 2016 6:0 4pm February 23, 2017 7:40pm Hydrocodone-Acetaminophen Discontinued 1 - 2 TAB PO Every 4-6 hours October 10, 2016 4: 44pm February 23, 2017 7:40pm Fluoxetine (Prozac) 40 MG capsule Active 40 MG PO Once Per Day February 23, 2017 7:36pm Metformin Active 850 MG PO 2 Times Per Day February 23, 2017 7:36pm Etonogestrel (Nexplanon) 68 MG implant Discontinued 68 MG SQ 1 Time/Once February 23, 2017 7:36pm October 24, 2017 8:07am Furosemide (Lasix) 20 MG tablet Disc ontinued 20 MG PO O nce Per Day March 03, 2017 9:33pm October 24, 2017 8:07am Oxycodone-Acetaminophen Discontinued 1 TAB PO Every 6 hours 15 March 03, 2017 9:43pm October 24, 2017 8:08am Ondansetron Discontinued 4 MG PO Every 6 hours March 03, 2017 9:43pm October 24, 2017 8:08am Wlwpdaplng-Bljndzetnecql-Sigt Discontinued 1 TAB PO Every 6 hours March 13, 2017 7: 18pm October 24, 2017 8:07am Buspirone Active 10 MG PO 2 Times Per Day October 24, 2017 8:06am Acetaminophen (Tylenol) 325 MG tablet Discontinued 650 MG PO Every 6 hours October 26, 2017 6:43pm December 15, 2018 2:58pm Melatonin Discontinued 3 MG PO At Bedtime December 15, 2018 2:58pm April 04, 2020 9:17pm Vancomycin Discontinued 125 MG PO At Bedtime December 15, 2018 2:58pm April 04, 2020 9:16pm Ascorbic Acid (Vitamin C) (Vitamin C) 500 mg tablet Active 500 MG PO 2 Times Per Day December 15, 2018 2:58pm Ferrous Sulfate Active 3 25 MG PO 2 Times Per Day December 15, 2018 2:58pm Indomethacin Discontinued 25 MG PO Three times a day December 15, 2018 2:58pm April 04, 2020 9:17pm Folic Acid Discontinued 4 MG PO Once Per Day December 15, 2018 2:58pm April 04, 2020 9:17pm Buprenorphine-Naloxone (Suboxone) 2-0.5 mg film Discontinued 1 FILM SL Once Per Day December 15, 2018 2:58pm April 04, 2020 9:17pm Acetaminophen Active 975 MG PO Every 6 hours April 04, 2020 9:11pm Hyoscyamine Sulfate Active 0.125 MG PO Every 4 Hours April 04, 2020 9:11pm Topiramate (Topamax) 200 mg tablet Active 200 MG PO 2 Times Per Day April 04, 2020 9:11pm Furosemide Active 20 MG PO Once Per Day April 04, 2020 9:11pm Ondansetron Active 8 MG PO NEEDED April 04, 2020 9:11pm Oxycodone (Oxycontin) 10 mg tablet,oral only,ext.rel.1 2 hr Active 10 MG PO Every 4 Hours April 04, 2020 9:11pm Problems Active Problems Medical Problem Onset Date Status Acute headache Active Colitis Active Headache Active Headache Active AUDIO VISUAL SPECIALIST (ventriculoperitoneal) shunt status Active NPH (normal pressure hydrocephalus) Active Obstructed AUDIO VISUAL SPECIALIST shunt Ac tive Abdominal pain Active Procedures Procedure Date Performed Status CT Head without contrast March 9:39pm completed CT Abd/pel w/ contrast April 04, 2020 9:40pm completed Urine Culture April 04, 2020 active Blood Culture April 04, 2020 active Blood Culture September 12, 2019 completed Blood Culture July 06, 2019 completed Blood Culture June 19, 2019 completed Blood Culture April 12, 2019 completed Relevant Diagnostic Tests and/or Laboratory Data Laboratory Results Test Date/Time Result Interpretation Reference Range Result Comment Performing Site White Blood Count April 04, 2020 10:10pm 7.5 10e3/uL 4.45-10.71 [facility], [address] [place] [address] [id number] Red Blood Count April 04, 2020 10:10pm 4.31 10e6/uL 4.20-5.40 [facility], [address] [place] [address] 94462 Hemoglobin April 04, 2020 10:10pm 13.2 g/dL 10.7-15.4 [facility], [address] [place] [address] 69383 Hematocrit April 04, 2020 10:10pm 41.1 % 37-47 [facility], [address] [place] [address] 62041 Mean Corpuscular Volume March 10:10pm 95.4 fl 80-96 [facility], [address] [place] [address] 89210 Mean Corpuscular Hemoglobin April 04, 2020 10:10pm 30.6 pg 27-31 [facility], [address] [place] [address] 46694 Mean Corpuscular Hemoglobin Concent April 04, 2020 10:10pm 32.1 g/dl 33-37 [facility], [address] [place] [address] 74209 Red Cell Distribution Width April 04, 2020 10:10pm 13 % 11-15 [facility], [address] [place] [address] 39051 Platelet Count April 04, 2020 10:10pm 369 10e3/ul 130-472 [facility], [address] [place], [place] [id number] Mean Platelet Volume April 04 10:10pm 9.0 fl 9.1-13.1 [facility], [address] [place] [address] 37095 Neutrophils (%) (Auto) April 04, 2020 10:10pm 65.5 % 41-77 [facility], [address] [place] [address] 63742 Absolute Neutrophil April 04 10:10pm 4.9 # 1.7-7.6 [facility], [address] [place] [address] 16038 Lymphocytes (%) (Auto) April 04, 2020 10:10pm 24.4 % 14-46 [facility], [address] [place] [address] 10362 Lymphocytes # (Auto) April 04 10:10pm 1.8 # 0.6-4.6 [facility], [address] [place] [address] 65391 Monocytes (%) (Auto) April 04 10:10pm 7.8 % 4-12 [facility], [address] [place] [address] 59706 Monocytes # April 04, 2020 10:10pm 0.6 # 0.2-1.2 [facility], [address] [place] [address] 74892 Eosinophils (%) (Auto) April 04, 2020 10:10pm 1.2 % 0-7 [facility], [address] [place] [address] 12822 Absolute Eosinophils (CBC) March 072020 10:10pm 0.1 # 0.0-0.5 [facility], [address] [place] [address] 32266 Basophils (%) (Auto) April 04 021 10:10pm 0.7 % 0.4-1.3 [facility], [address] [place] [address] 50599 Absolute Basophils (CBC) March 10:10pm 0.1 # 0.0-0.2 [facility], [address] [place] [address] 26472 Immature Granulocyte % (Auto) Januar y 2020 10:10pm 0.4 % 0-2 [facility], [address] [place] [address] 90900 Absolute Immature Granulocyte (auto April 04, 2020 10:10pm 0.0 # 0-0.1 [facility], [address] [place] [address] 50541 Add Manual Differential March 10:10pm No [facility], [address] [place] [address] 07274 Urine Color April 04, 2020 10:05pm Yellow [facility], [address] [place] [address] 83961 Urine Appearance April 04, 2020 10:05p m Cloudy CLEAR [facility], [address] [place] [address] 98679 Urine pH April 04, 2020 10:05pm 5.0 [facility], [address] [place] [address] 04439 Urine Specific Encinal April 04, 2020 10:05pm 1.044 [facility], [address] [place] [address] 40996 Urine Leukocyte Esterase March 10:05pm Trace NEGATIVE [facility], [address] [place] [address] 00082 Urine Nitrite April 04, 2020 10:05pm Negative NEGATIVE [facility], [address] [place] [address] 53260 Urine Protein April 04, 2020 10:05pm Trace NEGATIVE [facility], [address] [place] [address] 02644 Urine Glucose April 04, 2020 10:05pm Negative NEGATIVE [facility], [address] [place] [address] 60521 Urine Ketones April 04, 2020 10:05pm Negative NEGATIVE [facility], [address] [place] [address] 03982 Urine Urobilinogen April 04 10:05pm 1 eu/dl [facility], [address] [place] [address] 05818 Urine Bilirubin April 04, 2020 10:05pm Negative NEGATIVE [facility], [address] [place] [address] 81173 Urine Blood April 04, 2020 10:05pm Trace NEGATIVE [facility], [address] [place] [address] 80266 Microscopic Urinalysis Comment Marua ry 2020 10:05pm Microscopic added [facility], [address] [place] [address] 00560 Urine RBC April 04, 2020 10:05pm 1-2 /hpf [facility], [address] [place] [address] 56267 Urine WBC April 04, 2020 10:05pm Occasional /hpf [facility], [address] [place] [address] 51716 Urine Squamous Epithelial Cells Baljeet jv 2020 10:05pm Few /hpf [facility], [address] [place] [address] 99085 Urine Calcium Oxalate Crystals Marua ry 2020 10:05pm Many [facility], [address] [place] [address] 24183 Blood Urea Nitrogen April 04 10:10pm 19 mg/dL 9-23 [facility], [address] [place] [address] 13449 Sodium Level April 04, 2020 10:10pm 141 mmol/L 132-146 [facility], [address] [place] [address] 71601 Potassium Level April 04, 2020 10:10pm 3.9 mmol/L 3.5-5.5 [facility], [address] [place] [address] 43630 Chloride Level April 04, 2020 10:10pm 110 mmol/l 99-109 [facility], [address] [place] [address] 63774 Carbon Dioxide Level April 04 2 021 10:10pm 24 mmol/l 20-31 [facility], [address] [place] [address] 61189 Anion Gap April 04, 2020 10:10pm 11 mmol/l 8-16 [facility], [address] [place] [address] 61873 Glucose Level April 04, 2020 10:10pm 91 mg/dL 74-106 [facility], [address] [place] [address] 14136 Creatinine April 04, 2020 10:10pm 0.7 mg/dL 0.5-1.1 [facility], [address] [place] [address] 32275 Glomerular Filtration Rate Qian carias 2020 10:10pm Greater than 60 ml/min ABOVE 60 [facility], [address] [place] [address] 77620 Alanine Aminotransferase (ALT/SGPT) April 04, 2020 10:10pm 29 U/L 10-49 [facility], [address] [place] [address] 71211 Aspartate Amino Transf (AST/SGOT) Dwayne escalante 2020 10:10pm 26 U/L 0-33 [facility], [address] [place] [address] 87044 Alkaline Phosphatase April 04 10:10pm 88 U/L 45-129 [facility], [address] [place] [address] 37077 Amylase Level April 04, 2020 10:10pm 38 U/L 30-118 [facility], [address] [place] [address] 17947 Lipase April 04, 2020 10:10pm 186 U/L 73-393 [facility], [address] [place] [address] 90191 Calcium Level April 04, 2020 10:10pm 8.4 mg/dL 8.5-10.1 [facility], [address] [place] [address] 17560 Total Bilirubin April 04, 2020 10:10pm 0.2 mg/dL 0.3-1.2 [facility], [address] [place] [address] 09297 Albumin April 04, 2020 10:10pm 3.3 g/dL 3.2-4.8 [facility], [address] [place] [address] 18093 Serum Total Protein April 04 10:10pm 7.0 g/dL 5.7-8.2 [facility], [address] [place] [address] 21833 Lactic Acid Level April 04, 2020 10:10pm 1.1 mmol/L 0.5-2.2 [facility], [address] [place] [address] 45543 Troponin I April 04, 2020 10:10pm Less than 0.015 ng/mL 0.00-0.09 Less than 0.09 NG/ML Negative0.10 - 0.77 NG/ML High Risk0.78 NG/ML or Greater Positive The WHO defined the cutoff (definition for diagnosis of NE)for this method as 0.78 ng/ml. [facility], [address] [place] [address] 80839 Serum Test, Qualitative Dwayne boris 2020 10:10pm Negative NEGATIVE [facility], [address] [place] [address] 91047 Microbiology Results Procedure Source Result Collection Date/Time Result Date/Time Result Comment Performing Site Blood Culture Venous blood No growth. September 12, 2019 4:58pm September 16 6:07pm [facility], [address] [place] [address] Blood Culture Venous blood No growth. July 06, 2019 6:53pm July 12, 2019 8 :10am [facility], [address] [place] [address] Blood Culture Venous blood No growth. June 19, 2019 1:33pm June 24, 2019 6:03pm [facility], [address] [place] [address] 49992 Blood Culture Venous blood No growth. April 12, 2019 9:15pm April 052019 10:32am [facility], [address] [place] [address] Health Concerns Health Concerns may be documented in an alternate section. Advance Directives Advance Directive Response Recorded Date/Time Advanced Directive No Dwayne jv 2020 9:02pm Does Patient have a DNR? No April 04, 2020 9:02pm Healthcare Proxy No Baljeetelba carias 2020 9:02pm Living Will No September 04, 2016 2:53pm Chief Complaint and Reason for Visit Chief Complaint ABDOMINAL PAIN, BLOO D IN URINE Encounters Encounter Location(s) Ar rival/Admit Date Discharge/Depart Date Provider(s) Registered Referred -Laboratory April 12, 2019 9:05pm [facility] age Lab Registered Referred -Laboratory June 19, 2019 12:[facility] July 06, 2019 5:27pm [facility] Registered Referred -Laboratory September 12, 2019 3:47pm [facility] Departed Emergency -Emergency Room ER April 04, 2020 8:39pm April 05, 2020 12:30am null Assessments No Assessments Information Available Family History Relationship Condition A ge at Onset Recorded Date/Time Not Specified Disorder of gallbladder Unknown Functional Status No Functional Status information available Goals Goals may be documented in an alternate section. Immunizations No Immunization Information Available Mental Status Observation Response Mahin e Recorded Impairments No impairments or barriers April 04, 2020 8:40pm Medical Equipment No Medical Equipment Information available Insurance Providers Guarantor NIMA E JOE Address [address] [place] [address] Contact Info. Home Phone: Payer Policy Id Coverage Id Subscriber's Name Subscriber Id Effective Date Expiration Date [facility] [id number] [place] 2016 Self Pay Self N/A [facility] [id number] QUE DIAZ [id number] [facility] [id number] QUE DIAZ [id number] Social History Smoking Status Status Date of Observation Never smoker April 04, 2020 9:49 pm Observation Status Date of Observation Not September 04, 2016 Observation Status Observation Response Mahin e of Response Smoking Status Never smoker April 04, 2020 9:49pm Alcohol Use Yes April 04, 2020 9:49pm Substance Use No April 04, 2020 9:49pm Assigned Sex Female Vital Signs Vital Reading Result Ref erence Range Collection Date/Time Height 62 [in_i] April 04, 2020 9:02pm Weight 243.00 [lb_av] April 04, 2020 9:02pm Body Temperature 98.3 [degF] 97.6-99.5 April 04, 2020 8:40pm Heart Rate 128 /min 60-1 00 April 04, 2020 8:40pm Respiratory rate 18 /min 12-24 April 04, 2020 11:24pm Oxygen saturation by Pulse oximetry 98 % 95- 100 April 04, 2020 11:24pm BP Systolic 130 mm[Hg] April 04, 2020 8:40pm BP Diastolic 77 mm[Hg] April 04, 2020 8:40pm
--- OUTSIDE RECORDS SUMMARY | 2020-04-19 23:54 | CCD | Clinical Summary ---
Author Author 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 Name Role Phone Pcp, No PCP Unavailable Allergies Comments Active Allergy Reactions Severity Noted Date VARIES DEPENDING UPON SPECIES Bee Venom Hives, High 06/28/2015 Shortness Of Breath Divalproex Sodium Hives, Medium 10/17/2016 Itching, Swelling Acetazolamide Hives, High 06/18/2015 Shortness Of Breath Sulfa Antibiotics Hives, High 05/14/2015 Shortness Of Breath, Swelling Valproic Acid Hives, Medium 10/16/2016 Itching, Swelling Wasp Venom Anaphylaxis High 06/28/2015 Medications End Date Status Medication Sig Dispensed Refills Start Date Active acetaminophen (TYLENOL) Take 200 mg 0 500 MG tablet by mouth every 6 (six) hours as needed for Pain Active fluoxetine (PROZAC) 40 MG Take 40 mg by 0 capsule mouth daily Active topiramate (TOPAMAX) 200 Take 150 mg 0 MG tablet by mouth Two Times Daily Active clindamycin-benzoyl Apply to face 0 peroxide (BENZACLIN) gel at bedtime. Active ibuprofen (ADVIL,MOTRIN) Take 400 mg 0 400 MG tablet by mouth every 6 (six) hours as needed for Pain Active metformin (GLUCOPHAGE) Take 850 mg 0 850 MG tablet by mouth Two times daily with meals Active Diclofenac Sodium Apply 0 (VOLTAREN) 1 % GEL topically as needed Active lidocaine (LIDODERM) 5 % Place 1 patch 0 onto the skin every 6 (six) hours as needed Active Probiotic Product (ALIGN Take 1 0 PO) capsule by mouth nightly Active Cholecalciferol (VITAMIN Take 125 mcg 0 D3 PO) by mouth daily Active folic acid (FOLVITE) 1 MG Take 4 mg by 0 tablet mouth daily Active Magnesium Oxide (MAG-OX) Take 400 mg 0 400 (241.3 Mg) MG tablet by mouth nightly Active vitamin B-12 Take 500 mcg 0 (CYANOCOBALAMIN) 1000 MCG by mouth tablet daily Active pyridoxine (B-6) 100 MG Take 50 mg by 0 tablet mouth Three times daily Active cabergoline (DOSTINEX) Take 0.5 mg 0 0.5 MG tablet by mouth once a week Active Senna 8.6 MG Oral Tablet Take 2 120 each 0 0 tablets by 0 mouth nightly 08/25/2020 Active Diclofenac Sodium 75 MG Take 1 tablet 60 tablet 11 Oral Tablet Delayed by mouth Two 0 Release (VOLTAREN) Times Daily Active traZODone HCl 100 MG Oral 1 po hs X 2 90 tablet 11 Tablet (DESYREL) days, then 2 0 po hs X 2 days, then 3 po hs 11/10/2020 Active Naltrexone HCl 50 MG Oral Mix solution 30 tablet 0 Tablet (DEPADE) as per your 0 worksheet. Do not take 1 full tablet! Active Ondansetron 4 MG Oral Take 2 30 tablet 11 Tablet Disintegrating tablets by 0 (ZOFRAN-ODT) mouth every 8 (eight) hours as needed for Nausea Active Cyclobenzaprine HCl 10 MG 1 po tid prn 90 tablet 11 Oral Tablet (FLEXERIL) muscle spasm 0 Active Baclofen 10 MG Oral 1 po tid prn 90 tablet 11 12/21 Tablet (LIORESAL) muscle spasm 0 Active Hyoscyamine Sulfate 0.125 Take 1 tablet 100 tablet 11 MG Oral Tablet (LEVSIN) by mouth 0 every 4 (four) hours as needed for Cramping 12/20/2020 Active tiZANidine HCl 4 MG Oral Take 1 90 capsule 11 1 Capsule (ZANAFLEX) capsule by 0 mouth Three times daily 02/22/2020 Active oxyCODONE HCl 10 MG Oral Take 1 tablet 180 tablet 0 Tablet by mouth 0 every 4 (four) hours as needed for up to 3 days, Max Daily Dose: 6 tablets 01/29/2020 oxyCODONE HCl 10 MG Oral Take 10 mg by 180 tablet 0 Tablet mouth every 4 0 (four) hours as needed for up to 3 days, Max Daily Dose: 60 mg Active Problems Problem Noted Date IIH (idiopathic intracranial hypertension) 0 Diarrhea 07/22/2019 PCOS (polycystic ovarian syndrome) 07/22/2019 Class 3 severe obesity with body mass index (BMI) of 40.0 to 44.9 in adult 07/22/2019 Transaminitis 07/22/2019 Concern for CSF leak 07/22/2019 S/P NEONATAL CRITICAL CARE NURSE shunt 07/22/2019 Persistent depressive disorder 07/22/2019 Wound infection after surgery 05/14/2017 Generalized abdominal pain 05/09/2017 Free intraperitoneal air 05/09/2017 Post lumbar puncture headache 10/18/2016 Cervicalgia 10/18/2016 Headache 10/06/2016 Kidney stones 08/10/2015 Pseudotumor cerebri 07/05/2015 Benign intracranial hypertension 06/17/2015 Resolved Problems Problem Noted Date Resolved Date DEE (generalized anxiety disorder) 07/22/2019 Wound drainage 04/22/2017 05/01/2017 Shunt malfunction 04/13/2017 05/01/2017 Overview: Added automatically from request for annalee valle [id number] Encounters Care Team Description Date Type Specialty Rubens Baker MD Pipas, Lauren, MD Other headache syndrome (Primary Dx); Nonintractable headache, unspecified chronicity pattern, unspecified headache type; Paresthesia; Nausea and vomiting, intractability of vomiting not specified, unspecified vomiting type; Tremor; Visual disturbance; Neck pain; Anxiety 12/06/2019 Emergency Emergency Medicine from Last 3 Months Family History Medical History Relation Name Comments ADHD Maternal Grandmother Depression Mother Hypertension Mother Relation Name Status Comments Maternal Grandmother Mother Social History Date Tobacco Use Types Packs/Day Years Used Never Smoker Smokeless Tobacco: Never Used Tobacco Cessation: Counseling Given: Yes Drinks/Week oz/Week Comments Alcohol Use ONCE A MONTH 1-2 DRI NKS Yes Sex Assigned at Date Recorded Not on file Last Filed Vital Signs Reading Time Taken Comments Vital Sign 143/79 12/06/2019 11:30 AM EDT Blood Pressure 80 12/06/2019 11:30 AM EDT Pulse 36.8 C (98.2 F) 12/06/2019 11:30 AM EDT Temperature 17 12/06/2019 11:30 AM EDT Respiratory Rate 96% 12/06/2019 11:30 AM EDT Oxygen Saturation - - Inhaled Oxygen Concentration 102.1 kg (225 lb) 08/29/2019 6:43 AM EDT Weight 157.5 cm (5' 2") 08/29/2019 6:43 AM EDT Height 41.15 08/29/2019 6:43 AM EDT Body Mass Index Plan of Treatment Health Maintenance Due Date Last Done Comments MMR Vaccines (1 of 1 - 05/04/1992 Standard series) Varicella Vaccines (1 of 05/04/1992 2 - 2-dose childhood series) Pneumococcal Vaccine: 05/04/1997 Pediatrics (0 to 5 Years) and At-Risk Patients (6 to 64 Years) (1 of 2 - PCV13) DTaP,Tdap,and Td Vaccines 05/04/1998 (1 - Tdap) HIV Screening 05/04/2004 Cervical Cancer Screening 05/04/2012 3 years Influenza Vaccine 12/04/2019 Pneumococcal Vaccine: 65+ 05/04/2056 Years (1 of 1 - PPSV23) HIB Vaccines Aged Out No longer eligible based on patient's age to complete this topic Hepatitis A Vaccines Aged Out No longer eligibl e based on patient's age to complete this topic Hepatitis B Vaccines Aged Out No longer eligibl e based on patient's age to complete this topic IPV Vaccines Aged Out No longer eligible based on patient's age to complete this topic Implants Device Identifier Shelf Expiration Date Model / Serial / L ot Implanted Type Area Manufactur er 11/03/2019 [id number] / / [id number] Valve Micro W/Rickham Reservmed N/A: Brain J+J C ODMAN Pressure - [id number] Implanted: Qty: 1 on 07/05/2015 by Dalton Lai MD at [facility] 5E 02/02/2020 [id number] / / [id number] Shunt Lumbar Denita. 105cm - Right: Spine [employer]TE[employer] [id number] Lumbar LIFESCIENC Implanted: Qty: 1 on 03/26/2017 by ES SURG. Dalton Lai MD at [facility] 5E PRO 02/02/2020 [id number] / / [id number] Shunt Lumbar Denita. 105cm - Back NATUS [id number] NEURO Implanted: Qty: 1 on 04/30/2017 by Dalton Lai MD at [facility] 5E Procedures Comments Procedure Name Priority Date/Time Associated Diag nosis LAB RESULTS 12/06/2019 (OUTSIDE/HISTORICAL) 5:05 PM EDT XR ABDOMEN AP SUPINE AND STAT 12/06/2019 LATERAL VIEW 99132 4:05 AM EDT XR CHEST FRONTAL AND STAT 12/06/2019 LATERAL 18066 4:05 AM EDT XR SKULL LIMITED [id number] STAT 12/06/2019 4:05 AM EDT PROTIME INR STAT 12/06/2019 3:29 AM EDT SEDIMENTATION RATE, STAT 12/06/2019 AUTOMATED 3:29 AM EDT CBC AND DIFFERENTIAL STAT 12/06/2019 3:29 AM EDT BASIC METABOLIC PANEL STAT 12/06/2019 3:29 AM EDT from Last 3 Months Results * LAB RESULTS (OUTSIDE/HISTORICAL) (12/06/2019 5:05 PM EDT) Narrative Performed At This result has an attachment that is n ot available. * XR Abdomen AP Supine and Lateral View (12/06/2019 4:05 AM EDT) Specimen Narrative Performed At PROCEDURE INFORMATION: [facility] Exam: XR Abdomen, 2 Views Exam date and time: 12/06/2019 2:56 AM Age: 29 years old Clinical indication: Other: Shunt serie s TECHNIQUE: Imaging protocol: XR of the abdomen. Views: 2 Views. COMPARISON: CR XR ABDOMEN AP SUPINE AND LATERAL VIE W [id number] 2019-07-21 22:26 FINDINGS: Tubes, catheters and devices: Shunt cat heter tubing intact. Additional catheter along the inferior margin of the liver. Gastrointestinal tract: Normal. No fox l dilation. Intraperitoneal space: Normal. No free air. Organs: Additional gallbladder clips. Bones/joints: Unremarkable for age. IMPRESSION: Shunt catheter tubing intact. THIS DOCUMENT HAS BEEN ELECTRONICALLY S IGNED BY BRENDA COLEMAN MD Procedure Note Interface, Received Via [employer]ka System - 12/06/2019 4:41 AM EDT PROCEDURE INFORMATION: Exam: XR Abdomen, 2 Views Exam date and time: 12/06/2019 2:56 AM Age: 29 years old Clinical indication: Other: Shunt series TECHNIQUE: Imaging protocol: XR of the abdomen. Views: 2 Views. COMPARISON: CR XR ABDOMEN AP SUPINE AND LATERAL VIEW [id number] 2019-07-21 22:26 FINDINGS: Tubes, catheters and devices: Shunt catheter tubing intact. Additional catheter along the inferior margin of the liver. Gastrointestinal tract: Normal. No bowel dilation. Intraperitoneal space: Normal. No free air. Organs: Additional gallbladder clips. Bones/joints: Unremarkable for age. IMPRESSION: Shunt catheter tubing intact. THIS DOCUMENT HAS BEEN ELECTRONICALLY SIGNED BY BRENDA COLEMAN MD Performing Organization Address [facility] one Number [facility] [address] [place] [address] * XR Skull Limited (12/06/2019 4:05 AM EDT) Specimen Narrative Performed At [facility] PROCEDURE INFORMATION: Exam: XR Skull, Less Than 4 Views Exam date and time: 12/06/2019 2:56 AM Age: 29 years old Clinical indication: Other: Shunt serie s TECHNIQUE: Imaging protocol: XR of the skull, less than 4 views. COMPARISON: CR XR SKULL LIMITED [id number] 2019-02-28 23 :42 FINDINGS: Tubes, catheters and devices: Shunt cat heter tubing over the right neck is intact. Sinuses: Well aerated. No opacification . Bones/joints: No fracture. Soft tissues: Unremarkable. IMPRESSION: Shunt catheter tubing over the right ne ck is intact. THIS DOCUMENT HAS BEEN ELECTRONICALLY S IGNED BY BRENDA COLEMAN MD Procedure Note Interface, Received Via Applika System - 12/06/2019 4:42 AM EDT PROCEDURE INFORMATION: Exam: XR Skull, Less Than 4 Views Exam date and time: 12/06/2019 2:56 AM Age: 29 years old Clinical indication: Other: Shunt series TECHNIQUE: Imaging protocol: XR of the skull, less than 4 views. COMPARISON: CR XR SKULL LIMITED [id number] 2019-02-28 23:42 FINDINGS: Tubes, catheters and devices: Shunt catheter tubing over the right neck is intact. Sinuses: Well aerated. No opacification. Bones/joints: No fracture. Soft tissues: Unremarkable. IMPRESSION: Shunt catheter tubing over the right neck is intact. THIS DOCUMENT HAS BEEN ELECTRONICALLY SIGNED BY BRENDA COLEMAN MD Performing Organization Address [facility] one Number [facility] [address] [place] [address] * XR Chest Frontal and Lateral (12/06/2019 4:05 AM EDT) Specimen Narrative Performed At PROCEDURE INFORMATION: [facility] Exam: XR Chest, 2 Views Exam date and time: 12/06/2019 2:56 AM Age: 29 years old Clinical indication: Other: Shunt serie s TECHNIQUE: Imaging protocol: XR of the chest Views: 2 views. COMPARISON: No relevant prior studies available. FINDINGS: Lungs: Unremarkable. No consolidation. Pleural space: Unremarkable. No pleural effusion. No pneumothorax. Heart/Mediastinum: Unremarkable. No car diomegaly. Bones/joints: Unremarkable. Other findings: catheter tubing intact over the right of midline chest. IMPRESSION: catheter tubing intact over the right o f midline chest. THIS DOCUMENT HAS BEEN ELECTRONICALLY S IGNED BY BRENDA COLEMAN MD Procedure Note Interface, Received Via Applika System - 12/06/2019 4:41 AM EDT PROCEDURE INFORMATION: Exam: XR Chest, 2 Views Exam date and time: 12/06/2019 2:56 AM Age: 29 years old Clinical indication: Other: Shunt series TECHNIQUE: Imaging protocol: XR of the chest Views: 2 views. COMPARISON: No relevant prior studies available. FINDINGS: Lungs: Unremarkable. No consolidation. Pleural space: Unremarkable. No pleural effusion. No pneumothorax. Heart/Mediastinum: Unremarkable. No cardiomegaly. Bones/joints: Unremarkable. Other findings: catheter tubing intact over the right of midline chest. IMPRESSION: catheter tubing intact over the right of midline chest. THIS DOCUMENT HAS BEEN ELECTRONICALLY SIGNED BY BRENDA COLEMAN MD Performing Organization Address City/[facility] one Number [facility] [address] [place] [address] * Sedimentation rate, automated (12/06/2019 3:29 AM EDT) Sed Rate - ESR 29 (H) <20 mm/hr [facility] Clin Pathology Specimen EDTA Whole Blood Performing Organization Address City/[facility]/Zipcode Ph one Number [facility] [address] [place], [place] [address] PATHOLOGY [facility] [address] [place], [place] [address] Clin Pathology * Protime-INR (12/06/2019 3:29 AM EDT) PT Patient 13.3 12.5 - 14.9 s [facility] Clin Pathology Int'l 1.00Comment: Routine intensity [facility] pstate Normalized oral anticoagulation INR is Med Univ Clin Ratio typically 2.0-3.0. Target INR Patholo gy must be clinically individualized. Specimen Plasma Performing Organization Address City/[facility] Ph one Number [facility] [address] [place], [place] [address] PATHOLOGY [facility] [address] [place], [place] [address] Clin Pathology * CBC and Differential (12/06/2019 3:29 AM EDT) White Blood 7.6 4 - 10 10*3/uL [facility] Univ Clin Pathology Red Blood Cell 4.07 (L) 4.1 - 5.3 10*6/uL [facility] Clin Pathology Hemoglobin 12.6 11.5 - 15.5 g/dL [facility] Clin Pathology Hematocrit 38.1 36 - 45 % [facility] Univ Clin Pathology Mean Cell 93.7 80 - 96 fL [facility] Volume [facility] Univ Clin Pathology Mean Cell 31.1 27 - 33 pg [facility] Hemoglobin [facility] Clin Pathology Mean Cell Hgb 33.1 32.0 - 36.0 g/dL [facility] Univ Clin Pathology Red Cell Dist 13.7 11.5 - 14.5 % [facility] Width [facility] Clin Pathology Platelet Count 363 150 - 400 10*3/uL [facility] Clin Pathology Differential Automated Diff [facility] Type [facility] Clin Pathology Neutrophil 56 % [facility] Univ Clin Pathology Lymphocyte 31 % [facility] Univ Clin Pathology Monocyte 10 % [facility] Univ Clin Pathology Eosinophil 2 % [facility] Clin Pathology Basophil 1 % [facility] Clin Pathology Abs Neutrophil 4.32 1.8 - 7.0 10*3/uL [facility] Univ Clin Pathology Abs Lymphocyte 2.33 1.2 - 4.0 10*3/uL [facility] Univ Clin Pathology Abs Monocyte 0.74 0 - 0.8 10*3/uL [facility] Univ Clin Pathology Abs Eosinophil 0.11 0 - 0.5 10*3/uL [facility] Clin Pathology Abs Basophil 0.06 0 - 0.2 10*3/uL [facility] Clin Pathology Nucleated Red 0 0 - 0 /100{WBCs} [facility] Blood Cells [facility] Clin Pathology Specimen EDTA Whole Blood Performing Organization Address City/[facility] Ph one Number [facility] [address] [place], [place] [address] PATHOLOGY [facility] [address] [place], [place] [address] Clin Pathology * Basic Metabolic Panel (12/06/2019 3:29 AM EDT) Bicarbonate 23 22 - 29 mmol/L [facility] CLIN[facility] PATHOLOGY Chloride 109 (H) 98 - 107 mmol/L [facility] PATHOLOGY Creatinine 0.58 0.50 - 0.90 mg/dL [facility] CL[facility] PATHOLOGY Glucose 80 70 - 140 mg/dL [facility] PATHOLOGY Potassium 3.5Comment: Hemolyzed 3.4 - 5.1 mmol/L [facility] CLINICAL PATHOLOGY Sodium 138 136 - 145 mmol/L [facility] PATHOLOGY Blood Urea 10 6 - 20 mg/dL [facility] Nitrogen CLINICAL PATHOLOGY Anion Gap 7 (L) 8 - 15 mmol/L [facility] PATHOLOGY Osmolality, Suresh 285 275 - 300 mosm/kg [facility] CLINICAL PATHOLOGY BUN/Cre Ratio 17 [facility] CLINICAL PATHOLOGY Calcium 7.8 (L) 8.6 - 10.0 mg/dL [facility] CLINICAL PATHOLOGY GFR Non >90 >60 mL/min/1.73m2 [facility] 2009 CLINICAL CDK-EPI PATHOLOGY GFR >90 >60 mL/min/1.73m2 [facility] 2009 CLINICAL CKD-EPI PATHOLOGY Specimen Plasma Performing Organization Address City/State/Zipcode Ph one Number [facility] [address] [place], [place] [address] PATHOLOGY from Last 3 Months 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
--- OUTSIDE RECORDS SUMMARY | 2020-04-19 23:54 | CCD | Continuity of Care Document ---
Author Author [facility] Organization [facility] Address [address] [place] [address] Phone Care Team Providers Care Immigration Inspector Name Role Phone PCP Unavailable Allergies, Adverse Reactions, Alerts Allergen Type Severity Reaction Last Updated Verified Status Sulfa (Sulfonamide Antibiotics) Allergy Severe anaphylax is, angioedema May 16, 2017 Yes Active acetazolamide Allergy Severe anaphylaxsis, angioedema May 16, 2017 Yes Active beeswax Allergy Severe anaphylaxsis, swelling May 16, 2017 Yes Active enoxaparin Adverse Reaction Severe HIVES May 17, 2017 Yes Active Medications Medication Status Dose Units Route Sig Qty Days Start Date End Date Instructions CLINDAMYCIN HCL Active 300 3 Times Daily 30 May 032017 7:20am Take one tablet 3 times a day FLUOXETINE HCL Active 20 Daily METFORMIN HCL Active 850 Twice Daily for PCOS Active 1 Every 4 hrs as needed for PAIN S EVERE () May 18, 2017 7:20am Topiramate Active 100 Twice Daily Problems Active Problems Medical Problem Onset Date Status Pseudotumor cerebri Active PCOS (polycystic ovarian syndrome) Activ e Intracranial hypertension Active Depression Active Migraines Active Postoperative wound dehiscence Active Postoperative wound infection Active CAPITAL CAMPAIGN FUNDRAISER (ventriculoperitoneal) shunt status A ctive Procedures Procedure Date Performed Status BRAIN W/O CONTRAST November 22, 2019 completed Relevant Diagnostic Tests and/or Laboratory Data Laboratory Results Test Date/Time Result Interpretation Reference Range Result Co mment Performing Site White Blood Count November 22, 2019 7:00pm 10.7 4.0- 10.0 [facility] Main Lab, 4 [facility] [address] Red Blood Count November 22, 2019 7:00pm 4.46 4.00-5 .50 [facility] Main Lab, 4 [facility] [address] Hemoglobin November 22, 2019 7:00pm 13.7 12.0-16.0 [facility] Main Lab, 4 [facility] [address] Hematocrit November 22, 2019 7:00pm 41.4 36.0-48.8 [facility] Main Lab, 4 [facility] [address] Mean Corpuscular Volume November 22, 2019 7:00pm 92.8 80-96 [facility] Main Lab, 4 [facility] [address] Mean Corpuscular Hemoglobin November 22, 2019 7:00pm 30.7 27.0-31.0 [facility] Main Lab, 4 [facility] [address] Mean Corpuscular Hgb Concent Diff November 22, 2019 7:00pm 33.1 32.0-36.0 [facility] Main Lab, 4 [facility] [address] Red Cell Distribution Width November 22, 2019 7:00pm 12.3 10.0-14.5 [facility] Main Lab, 4 [facility] [address] Platelet Count November 22, 2019 7:00pm 326 172-450 [facility] Lab, 4 [facility] [address] Mean Platelet Volume November 22, 2019 7:00pm 9.3 9 .0-13.0 [facility] Main Lab, 4 [facility] [address] Granulocytes % (Auto) November 22, 2019 7:00pm 67.0 50-80.0 [facility] Main Lab, 4 [facility] [address] Immature Granulocytes % November 22, 2019 7:00pm 0.5 0.0-0.2 [facility] Main Lab, 4 [facility] [address] Lymphocytes % November 22, 2019 7:00pm 23.3 25.0-50. 0 [facility] Main Lab, 4 [facility] [address] Monocytes % November 22, 2019 7:00pm 8.0 2.0-10.0 [facility] Main Lab, 4 [facility] [address] Eosinophils % November 22, 2019 7:00pm 1.0 0-5.0 [facility] Main Lab, 4 [facility] [address] Basophils % November 22, 2019 7:00pm 0.2 0.0-2.0 [facility] Main Lab, 4 [facility] [address] Granulocytes # November 22, 2019 7:00pm 7.2 2.0-8.0 0 [facility] Main Lab, 4 [facility] [address] Immature Granulocytes # November 22, 2019 7:00pm 0.1 0.0-0.2 [facility] Main Lab, 4 [facility] [address] Lymphocytes # November 22, 2019 7:00pm 2.5 1.0-5.0 [facility] Main Lab, 4 [facility] [address] Monocytes # November 22, 2019 7:00pm 0.9 0.10-1.20 [facility] Main Lab, 4 [facility] [address] Eosinophils # November 22, 2019 7:00pm 0.1 0.0-0.5 [facility] Main Lab, 4 [facility] [address] Basophils # November 22, 2019 7:00pm 0.0 0.0-0.2 [facility] Main Lab, 4 [facility] [address] Glucose Level November 22, 2019 7:00pm 90 74-106 [facility] Main Lab, 4 [facility] [address] Blood Urea Nitrogen November 22, 2019 7:00pm 11 7- 18 [facility] Main Lab, 4 [facility] [address] Creatinine November 22, 2019 7:00pm 0.9 0.6-1.0 [facility] Main Lab, 4 [facility] [address] Sodium Level November 22, 2019 7:00pm 138 136-145 [facility] Main Lab, 4 [facility] [address] Potassium Level November 22, 2019 7:00pm 4.2 3.5-5. 1 [facility] Main Lab, 4 [facility] [address] Chloride Level November 22, 2019 7:00pm 102 98-107 [facility] Main Lab, 4 [facility] [address] Carbon Dioxide Level November 22, 2019 7:00pm 23 2 1-32 [facility] Main Lab, 4 [facility] [address] Calcium Level November 22, 2019 7:00pm 8.8 8.5-10.1 [facility] Main Lab, 4 [facility] [address] Anion Gap November 22, 2019 7:00pm 13.0 5-12 [facility] Main Lab, 4 [facility] [address] Estimated GFR (MDRD) November 22, 2019 7:00pm 75 GFR IS CALCULATED IN mL/min/1.73m2 NORMAL FUNCTION: >90MILDLY DECREASED: 60-89MILDY TO MODERATELY DECREASED: 45-59 MODERATELY TO SEVERELY DECREASED: 30-44SEVERELY DECREASED: 15-29RENAL FAILURE: <15 [facility] Main Lab, [address] [place] [id number] Aspartate Amino Transf (AST/SGOT) November 22, 2019 7:00pm 43 15-37 [facility] Main Lab, 4 [facility] [address] Alanine Aminotransferase (ALT/SGPT) November 22, 2019 7:00pm 55 12-78 [facility] Main Lab, 4 [facility] [address] Alkaline Phosphatase November 22, 2019 7:00pm 85 4 6-116 [facility] Main Lab, 4 [facility] [address] Total Bilirubin November 22, 2019 7:00pm 0.5 0.2-1. 0 [facility] Main Lab, 4 [facility] [address] Total Protein November 22, 2019 7:00pm 7.7 6.4-8.2 [facility] Main Lab, 4 [facility] [address] Albumin November 22, 2019 7:00pm 4.3 3.4-5.0 [facility] Main Lab, 4 [facility] [address] Urine Amphetamine Screen November 22, 2019 7:27pm NEGATIVE <1000 ng/mL [facility] Main Lab, 4 [facility] [address] Urine Marijuana (THC) Screen November 22, 2019 7:27pm NEGATIVE <50 ng/mL [facility] Main Lab, 4 [facility] [address] Urine Barbiturates Screen November 22, 2019 7:27pm NEGATIVE <300 ng/mL [facility] Main Lab, 4 [facility] [address] Urine Phencyclidine (PCP) Prelim November 22, 2019 7:27pm NEGATI VE <25 ng/mL [facility] Lab, [address] [place] [address] Urine Cocaine Screen November 22, 2019 7:27pm NEGATIVE < 300 ng/mL [facility] Lab, [address] [place] [address] Urine Opiates Screen November 22, 2019 7:27pm POSITIVE < 300 ng/mL [facility] Lab, [address] [place] [address] Urine Tricyclic Antidepressants November 22, 2019 7:27pm NEGATIV E <1000 ng/mL IF A NEGATIVE RESULT IS OBTAINED AND ING ESTION OF TRICYCLICANTIDEPRESSANTS IS SUSPECTED, A SERUM SAMPLE SHOULD BEOBTAINED AND TESTED USING AN APPROPRIATE METHOD. [facility] Lab, [address] [place] [address] Urine Benzodiazepines Screen November 22, 2019 7:27pm NEGATIVE <300 ng/mL THESE TESTS ARE PERFORMED USING AN IMMUNOASSAY FOR THEQUALITATIVE DETERMINATION OF THE PRESENCE OF THE MAJORMETABOLITES OF DRUGS OF ABUSE. THESE TESTS ARE ONLY ASCREENING AND NOT CONFIRMATORY. CLINICAL CONSIDERATION ANDPROFESSIONAL JUDGMENT MUST BE APPLIED TO ANY DRUG OF ABUSETEST RESULT. [facility] Main Lab, [address] [place] [address] Urine HCG, Qualitative November 22, 2019 7:27pm NEGATIVE NEGATIVE [facility] Lab, [address] [place] [address] Diagnostic Imaging Reports Report Dictated Date/Time Dictated By Status PS360 TEMPLATE November 23, 2019 4:30am YUAN NIX Patient Name: NIMA DIAZ Unit#: [id number] Rad#: [id number] : 91 Status: DEP ER Festus MD: HUEY RENTERIA Room/Bed Sex: Guera FlannerySupervisor Grove: Bandar Delgadillo Date: 11/22/19 Report #: [id number] Signed - BRAIN W/O CONTRAST ORIGINAL REPORT DATE OF EXAMINATION: 11/22/2019 22:45 EDT BRAIN W/O CONTRAST INDICATION: Headache COMPARISON: 09/16/2019. This CT exam was performed using the following dose reduction techniques: Automated exposure control, adjustment of mA and/or kV according to the patient's size, and use of iterative reconstruction technique. TECHNIQUE: Axial images were obtained from the christopher magnum to the vertex. FINDINGS: There is a ventriculostomy catheter entering from the right frontal region with the tip in the anterior right lateral ventricle. The ventricles are decompressed. Left-sided ventriculostomy catheters seen previously is no longer present. There is no intracranial bleed, mass effect, or shift. IMPRESSION: No acute intracranial abnormalities. Electronically signed in PS360 by: Yuan Nix M.D. 11/23/2019 8:31 EDT Health Concerns No known health concerns documented Chief Complaint and Reason for Visit Reason for Visit HEAD AND NECK PAIN Encounters Encounter Location(s) Arrival/Admit Date Discharge/Depart Date Provider(s) [facility] February 06, 2020 6:00pm February 06, 2020 6:40pm BRENDA SIMMONS [facility] November 22, 2019 6:39 pm November 22, 2019 8:51pm HUEY RENTERIA @ Assessments No Assessments Information Available Functional Status No Functional Status information available Goals No Goals Information Available Immunizations No Immunization Information Available Mental Status No Mental Status Information Available Medical Equipment No Medical Equipment Information available Insurance Providers Guarantor NIMA DIAZ Address [address] [place] [address] Contact Info. Home Phone: Payer Policy Id Coverage Id Subscriber's Name Subscriber Id Effect fanny Date Expiration Date [facility] WPS [id number] QUE DIAZ 2019 2020 Social History Assigned Sex Female Vital Signs No vital signs result information available.
--- OUTSIDE RECORDS SUMMARY | 2020-04-19 23:54 | CCD | Continuity of Care Document ---
Author Author [facility] Organization [facility] Address [address] [place] [address] Phone Care Team Providers Care Repair Specialist Name Role Phone PCP Unavailable Allergies, Adverse [...] wound dehiscence Active Postoperative wound infection Active AUTOMOTIVE MECHANICAL ENGINEER (ventriculoperitoneal) shunt status A ctive Procedures Procedure Date Performed Status BRAIN W/O CONTRAST November 22, 2019 completed Relevant Diagnostic Tests and/or Laboratory Data Laboratory Results Test Date/Time Result Interpretation Reference Range Result Co mment Performing Site White Blood Count February 09, 2020 1:34pm 7.3 4.0-[address] [facility] Main Lab, 4 [facility] [address] Red Blood Count February 09, 2020 1:34pm 4.80 4.00-5.[address] [facility] Main Lab, 4 [facility] [address] Hemoglobin February 09, 2020 1:34pm 14.4 12.0-16.[address] [facility] Main Lab, 4 [facility] [address] Hematocrit February 09, 2020 1:34pm 43.9 36.0-48.[address] [facility] Main Lab, 4 [facility] [address] Mean Corpuscular Volume February 09, 2020 1:34pm 91.5 80-[address] [facility] Main Lab, 4 [facility] [address] Mean Corpuscular Hemoglobin February 09, 2020 1:34pm 30.0 27.0-31.[address] [facility] Main Lab, 4 [facility] [address] Mean Corpuscular Hgb Concent Diff February 09, 2020 1:34pm 32.8 32.0-36.[address] [facility] Main Lab, 4 [facility] [address] Red Cell Distribution Width February 09, 2020 1:34pm 12.4 10.0-14.[address] [facility] Main Lab, 4 [facility] [address] Platelet Count February 09, 2020 1:34pm 369 172-[address] [facility] Main Lab, 4 [facility] [address] Mean Platelet Volume February 09, 2020 1:34pm 9.3 9.0 -13.[address] [facility] Main Lab, 4 [facility] [address] Granulocytes % (Auto) February 09, 2020 1:34pm 65.7 50 -80.[address] [facility] Main Lab, 4 [facility] [address] Immature Granulocytes % February 09, 2020 1:34pm 0.3 0.0-0.[address] [facility] Main Lab, 4 [facility] [address] Lymphocytes % February 09, 2020 1:34pm 25.9 25.0-50.[address] [facility] Main Lab, 4 [facility] [address] Monocytes % February 09, 2020 1:34pm 6.9 2.0-10.[address] [facility] Main Lab, 4 [facility] [address] Eosinophils % February 09, 2020 1:34pm 0.8 0-5.[address] [facility] Main Lab, 4 [facility] [address] Basophils % February 09, 2020 1:34pm 0.4 0.0-2.[address] [facility] Main Lab, 4 [facility] [address] Granulocytes # February 09, 2020 1:34pm 4.8 2.0-8.[address] [facility] Main Lab, 4 [facility] [address] Immature Granulocytes # February 09, 2020 1:34pm 0.0 0.0-0.[address] [facility] Main Lab, 4 [facility] [address] Lymphocytes # February 09, 2020 1:34pm 1.9 1.0-5.[address] [facility] Main Lab, 4 [facility] [address] Monocytes # February 09, 2020 1:34pm 0.5 0.10-1.[address] [facility] Main Lab, 4 [facility] [address] Eosinophils # February 09, 2020 1:34pm 0.1 0.0-0.[address] [facility] Main Lab, 4 [facility] [address] Basophils # February 09, 2020 1:34pm 0.0 0.0-0.[address] [facility] Main Lab, 4 [facility] [address] Urine Color February 09, 2020 1:10pm [facility] Main Lab, 4 [facility] [address] Urine Appearance February 09, 2020 1:10pm CLEAR [facility] Main Lab, 4 [facility] [address] Urine Glucose February 09, 2020 1:10pm NEGATIVE NEGATIVE [facility] Main Lab, 4 [facility] [address] Urine Bilirubin February 09, 2020 1:10pm NEGATIVE NEGATIVE [facility] Main Lab, 4 [facility] [address] Urine Ketones February 09, 2020 1:10pm NEGATIVE NEGATIVE [facility] Main Lab, 4 [facility] [address] Specific Raymond February 09, 2020 1:10pm 1.020 1.001-[address] [facility] Main Lab, 4 [facility] [address] Urine Blood February 09, 2020 1:10pm NEGATIVE NEGATIVE [facility] Main Lab, 4 [facility] [address] Urine pH February 09, 2020 1:10pm 8.5 5.0-9.[address] [facility] Main Lab, 4 [facility] [address] Urine Protein February 09, 2020 1:10pm NEGATIVE NEGATIVE [facility] Main Lab, 4 [facility] [address] Urine Urobilinogen February 09, 2020 1:10pm NORMAL(0.2-1) 0 -[address] [facility] Main Lab, 4 [facility] [address] Urine Nitrite February 09, 2020 1:10pm NEGATIVE NEGATIVE [facility] Main Lab, 4 [facility] [address] Urine Leukocyte Esterase February 09, 2020 1:10pm NEGATIVE NEGATIVE [facility] Main Lab, 4 [facility] [address] Glucose Level February 09, 2020 1:34pm 91 74-[address] [facility] Main Lab, 4 [facility] [address] Blood Urea Nitrogen February 09, 2020 1:34pm 7 7-[address] [facility] Main Lab, 4 [facility] [address] Creatinine February 09, 2020 1:34pm 0.7 0.6-1.0 [facility] Lab, [address] [place] [address] Sodium Level February 09, 2020 1:34pm 139 136-[address] [facility] Main Lab, 4 [facility] [address] Potassium Level February 09, 2020 1:34pm 3.8 3.5-5.[address] [facility] Main Lab, [address] [place] [address] Chloride Level February 09, 2020 1:34pm 104 98-[address] [facility] Main Lab, 4 [facility] [address] Carbon Dioxide Level February 09, 2020 1:34pm 24 21- [address] [facility] Main Lab, [address] [place] [address] Calcium Level February 09, 2020 1:34pm 8.8 8.5-10.[address] [facility] Main Lab, 4 [facility] [address] Anion Gap February 09, 2020 1:34pm 11.0 5-[address] [facility] Main Lab, [address] [place] [address] Estimated GFR (MDRD) February 09, 2020 1:34pm >90 GFR IS CALCULATED IN mL/min/1.73m2 NORMAL FUNCTION: >90MILDLY DECREASED: 60-89MILDY TO MODERATELY DECREASED: 45-59 MODERATELY TO SEVERELY DECREASED: 30-44SEVERELY DECREASED: 15-29RENAL FAILURE: <[address] [facility] Main Lab, 4 [facility] [address] Aspartate Amino Transf (AST/SGOT) February 09, 2020 1:34pm 14 15-[address] [facility] Main Lab, 4 [facility] [address] Alanine Aminotransferase (ALT/SGPT) February 09, 2020 1:34pm 22 12-[address] [facility] Main Lab, 4 [facility] [address] Alkaline Phosphatase February 09, 2020 1:34pm 84 46- [address] [facility] Main Lab, 4 [facility] [address] Total Bilirubin February 09, 2020 1:34pm 0.1 0.2-1.[address] [facility] Main Lab, 4 [facility] [address] Total Protein February 09, 2020 1:34pm 7.7 6.4-8.[address] [facility] Main Lab, 4 [facility] [address] Albumin February 09, 2020 1:34pm 3.7 3.4-5.[address] [facility] Main Lab, 4 [facility] [address] C-Reactive Protein February 09, 2020 1:34pm 10.7 0.0-[address] [facility] Main Lab, 4 [facility] [address] Urine Amphetamine Screen November 22, 2019 7:27pm NEGATIVE <1000 ng/mL [facility] Main Lab, [address] [place] [address] Urine Marijuana (THC) Screen November 22, 2019 7:27pm NEGATIVE <50 ng/mL [facility] Main Lab, [address] [place] [address] Urine Barbiturates Screen November 22, 2019 7:27pm NEGATIVE <300 ng/mL [facility] Main Lab, [address] [place] [address] Urine Phencyclidine (PCP) Prelim November 22, 2019 7:27pm NEGATI VE <25 ng/mL [facility] Main Lab, [address] [facility] [address] Urine Cocaine Screen November 22, 2019 7:27pm NEGATIVE < 300 ng/mL [facility] Main Lab, [address] [place] [address] Urine Opiates Screen November 22, 2019 7:27pm POSITIVE < 300 ng/mL [facility] Main Lab, [address] [place] [address] Urine Tricyclic Antidepressants November 22, 2019 7:27pm NEGATIV E <1000 ng/mL IF A NEGATIVE RESULT IS OBTAINED AND ING ESTION OF TRICYCLICANTIDEPRESSANTS IS SUSPECTED, A SERUM SAMPLE SHOULD BEOBTAINED AND TESTED USING AN APPROPRIATE METHOD. [facility] Lab, [address] [place] [id number] Urine Benzodiazepines Screen November 22, 2019 7:27pm NEGATIVE <300 ng/mL THESE TESTS ARE PERFORMED USING AN IMMUNOASSAY FOR THEQUALITATIVE DETERMINATION OF THE PRESENCE OF THE MAJORMETABOLITES OF DRUGS OF ABUSE. THESE TESTS ARE ONLY ASCREENING AND NOT CONFIRMATORY. CLINICAL CONSIDERATION ANDPROFESSIONAL JUDGMENT MUST BE APPLIED TO ANY DRUG OF ABUSETEST RESULT. [facility] Lab, 4 [facility] [address] Urine HCG, Qualitative November 22, 2019 7:27pm NEGATIVE NEGATIVE [facility] Lab, [address] [place] [address] Diagnostic Imaging Reports Report Dictated Date/Time Dictated By Status PS360 TEMPLATE November 23, 2019 4:30am YUAN NIXed Patient Name: NIMA DIAZ Unit#: [id number] Rad#: [id number] : 91 Status: DEP ER Festus MD: HUEY RENTERIA Room/Bed Sex: Guera FlanneryLiquid Loader: Bandar Delgadillo Date: 11/22/19 Report #: [id number] Signed - BRAIN W/O CONTRAST ORIGINAL REPORT [...] and Reason for Visit Reason for Visit RASH,VOMITING Encounters Encounter Location(s) Arrival/Admit Date Discharge/Depart Date Provider(s) [facility] February 09, 2020 12:49p m February 09, 2020 3:22pm AMOL VAUGHAN [facility] February 06, 2020 6:00pm February 06, 2020 6:40pm BRENDA SIMMONS [facility] November 22, 2019 6:39 pm November 22, 2019 8:51pm HUEY RENTERIA @ Assessments No Assessments Information Available Functional Status No Functional Status information available Goals No Goals Information Available Immunizations No Immunization Information Available Mental Status No Mental Status Information Available Medical Equipment No Medical Equipment Information available Insurance Providers Guarantor JOENIMA PRAKASH Address [address] [place] [address] Contact Info. Home Phone: Payer Policy Id Coverage Id Subscriber's Name Subscriber Id Effect fanny Date Expiration Date [facility] WPS [id number] QUE DIAZ 2019 2020 Social History Assigned Sex Female Vital Signs No vital signs result information available.
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
--- OUTSIDE RECORDS SUMMARY | 2020-04-19 23:54 | CCD | Clinical Summary ---
Author Author [facility] Address Unknown Phone Unavailable Care Team Providers Care Hr Specialist Name Role Phone Pcp, No PCP Unavailable [...] capsule by 0 mouth Three times daily 01/29/2020 Active oxyCODONE HCl 10 MG Oral Take 10 mg by 180 tablet 0 Tablet mouth every 4 0 (four) hours as needed for up to 3 days, Max Daily Dose: 60 mg 12/29/2019 Ondansetron 8 MG Oral Take 1 tablet 20 tablet 11 Tablet Disintegrating by mouth 0 (ZOFRAN-ODT) every 8 (eight) hours as needed for Nausea or Vomiting for up to 7 days Active Problems Problem Noted Date IIH (idiopathic intracranial hypertension) 0 Diarrhea 07/22/2019 PCOS (polycystic ovarian syndrome) 07/22/2019 Class 3 severe obesity with body mass index (BMI) of 40.0 to 44.9 in adult 07/22/2019 Transaminitis 07/22/2019 Concern for CSF leak 07/22/2019 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 105cm - Right: Spine [employer] [id number] Lumbar LIFESCIENC Implanted: Qty: 1 on 03/26/2017 by ES SURG. Dalton Lai MD at [facility] 02/02/2020 [id number] / / [id number] Shunt Lumbar Denita. 105cm - Back NATUS [id number] NEURO Implanted: Qty: 1 on 04/30/2017 by Dalton Lai MD at [facility] Procedures Comments Procedure Name Priority Date/Time Associated Diag nosis LAB RESULTS 12/06/2019 (OUTSIDE/HISTORICAL) 5:05 PM EDT XR ABDOMEN AP SUPINE AND STAT 12/06/2019 LATERAL VIEW [id number] 4:05 AM EDT XR CHEST FRONTAL AND STAT 12/06/2019 LATERAL [id number] 4:05 AM EDT XR SKULL LIMITED [id number] STAT 12/06/2019 4:05 AM EDT PROTIME INR [...] EDT) Specimen Narrative Performed At PROCEDURE INFORMATION: [facility] Exam: XR Abdomen, 2 Views Exam date and time: 12/06/2019 2:56 AM Age: 29 years old Clinical indication: Other: Shunt serie s TECHNIQUE: Imaging protocol: XR of the abdomen. Views: 2 Views. COMPARISON: CR XR ABDOMEN AP SUPINE AND LATERAL VIE W [id number] 2019-07-21 22:26 FINDINGS: Tubes, catheters and devices: Shunt cat heter tubing intact. Additional catheter along the inferior margin of the liver. Gastrointestinal tract: Normal. No fox l dilation. Intraperitoneal space: Normal. No free air. Organs: Additional gallbladder clips. Bones/joints: Unremarkable for age. IMPRESSION: Shunt catheter tubing intact. THIS DOCUMENT HAS BEEN ELECTRONICALLY S IGNED BY BRENDA COLEMAN MD Procedure Note Interface, Received Via [employer] System - 12/06/2019 4:41 AM EDT PROCEDURE INFORMATION: Exam: XR Abdomen, 2 Views Exam date and time: 12/06/2019 2:56 AM Age: 29 years old Clinical indication: Other: Shunt series TECHNIQUE: Imaging protocol: XR of the abdomen. Views: 2 Views. COMPARISON: CR XR ABDOMEN AP SUPINE AND LATERAL VIEW [id number] 2019-07-21 22:26 FINDINGS: Tubes, catheters and devices: Shunt catheter tubing intact. Additional catheter along the inferior margin of the liver. Gastrointestinal tract: Normal. No bowel dilation. Intraperitoneal space: Normal. No free air. Organs: Additional gallbladder clips. Bones/joints: Unremarkable for age. IMPRESSION: Shunt catheter tubing intact. THIS DOCUMENT HAS BEEN ELECTRONICALLY SIGNED BY BRENDA COLEMAN MD Performing Organization Address [facility] one Number [facility] [address] [place] [address] * XR Skull Limited (12/06/2019 4:05 AM EDT) Specimen Narrative Performed At [facility] PROCEDURE INFORMATION: Exam: XR Skull, Less Than 4 Views Exam date and time: 12/06/2019 2:56 AM Age: 29 years old Clinical indication: Other: Shunt serie s TECHNIQUE: Imaging protocol: XR of the skull, less than 4 views. COMPARISON: CR XR SKULL LIMITED [id number] 2019-02-28 23 :42 FINDINGS: Tubes, catheters and devices: Shunt cat heter tubing over the right neck is intact. Sinuses: Well aerated. No opacification . Bones/joints: No fracture. Soft tissues: Unremarkable. IMPRESSION: Shunt catheter tubing over the right ne ck is intact. THIS DOCUMENT HAS BEEN ELECTRONICALLY S IGNED BY BRENDA COLEMAN MD Procedure Note Interface, Received Via [employer] System - 12/06/2019 4:42 AM EDT PROCEDURE INFORMATION: Exam: XR Skull, Less Than 4 Views Exam date and time: 12/06/2019 2:56 AM Age: 29 years old Clinical indication: Other: Shunt series TECHNIQUE: Imaging protocol: XR of the skull, less than 4 views. COMPARISON: CR XR SKULL LIMITED [id number] 2019-02-28 23:42 FINDINGS: Tubes, catheters and devices: Shunt catheter tubing over the right neck is intact. Sinuses: Well aerated. No opacification. Bones/joints: No fracture. Soft tissues: Unremarkable. IMPRESSION: Shunt catheter tubing over the right neck is intact. THIS DOCUMENT HAS BEEN ELECTRONICALLY SIGNED BY BRENDA COLEMAN MD Performing Organization Address [facility] one Number [facility] [address] [place] [address] * XR Chest Frontal and Lateral (12/06/2019 4:05 AM EDT) Specimen Narrative Performed At PROCEDURE INFORMATION: [facility] Exam: XR Chest, 2 Views Exam [...] COLEMAN MD Procedure Note Interface, Received Via [employer] System - 12/06/2019 4:41 AM EDT PROCEDURE [...] BY BRENDA COLEMAN MD Performing Organization Address City/State/Zipcode Ph one Number [facility] [address] [place] [address] * Sedimentation rate, automated (12/06/2019 3:29 AM EDT) Sed Rate - ESR 29 (H) <20 mm/hr [facility] Clin Pathology Specimen EDTA Whole Blood Performing Organization Address City/State/Zipcode Ph one Number [facility] [address] [place], [place] [address] PATHOLOGY [facility] [address] [place], [place] [address] Clin Pathology * Protime-INR (12/06/2019 3:29 AM EDT) PT Patient 13.3 12.5 - 14.9 s [facility] Pathology Int'l 1.00Comment: Routine intensity RAMIREZ U pstate Normalized oral anticoagulation INR is Med Univ Clin Ratio typically 2.0-3.0. Target INR Patholo gy must be clinically individualized. Specimen Plasma Performing Organization Address City/State/[facility] Ph one Number [facility] [address] [place], [place] [address] PATHOLOGY [facility] [address] [place], [place] [address] Clin Pathology * CBC and Differential (12/06/2019 3:29 AM EDT) White Blood 7.6 4 - 10 10*3/uL [facility] Univ Clin Pathology Red Blood Cell 4.07 (L) 4.1 - 5.3 10*6/uL [facility] Univ Clin Pathology Hemoglobin 12.6 11.5 - 15.5 g/dL [facility] Clin Pathology Hematocrit 38.1 36 - 45 % [facility] Clin Pathology Mean Cell 93.7 80 - 96 fL [facility] Volume [facility] Univ Clin Pathology Mean Cell 31.1 27 - 33 pg [facility] [place] [facility] Hemoglobin [facility] Univ Clin Pathology Mean Cell Hgb 33.1 32.0 - 36.0 g/dL [facility] Univ Clin Pathology Red Cell Dist 13.7 11.5 - 14.5 % [facility] [place] [facility] Width [facility] Univ Clin Pathology Platelet Count 363 150 - 400 10*3/uL [facility] Clin Pathology Differential Automated Diff [facility] Type Med Univ Clin Pathology Neutrophil 56 % [facility] Pathology Lymphocyte 31 % [facility] Clin Pathology Monocyte 10 % [facility] Clin Pathology Eosinophil 2 % [facility] Clin Pathology Basophil 1 % [facility] Clin Pathology Abs Neutrophil 4.32 1.8 - 7.0 10*3/uL [facility] Clin Pathology Abs Lymphocyte 2.33 1.2 - 4.0 10*3/uL [facility] Clin Pathology Abs Monocyte 0.74 0 - 0.8 10*3/uL [facility] Clin Pathology Abs Eosinophil 0.11 0 - 0.5 10*3/uL [facility] Clin Pathology Abs Basophil 0.06 0 - 0.2 10*3/uL [facility] Clin Pathology Nucleated Red 0 0 - 0 /100{WBCs} [facility] [place] [facility] Blood Cells [facility] Univ Clin Pathology Specimen EDTA Whole Blood Performing Organization Address City/[facility] Ph one Number [facility] [address] [place], [place] [address] PATHOLOGY [facility] [address] [place], [place] [address] Clin Pathology * Basic Metabolic Panel (12/06/2019 3:29 AM EDT) Bicarbonate 23 22 - 29 mmol/L [facility] PATHOLOGY Chloride 109 (H) 98 - 107 mmol/L [facility] PATHOLOGY Creatinine 0.58 0.50 - 0.90 mg/dL [facility] PATHOLOGY Glucose 80 70 - 140 mg/dL [facility] PATHOLOGY Potassium 3.5Comment: Hemolyzed 3.4 - 5.1 mmol/L [facility] Sodium 138 136 - 145 mmol/L [facility] PATHOLOGY Blood Urea 10 6 - 20 mg/dL [facility] Nitrogen CLINICAL PATHOLOGY Anion Gap 7 (L) 8 - 15 mmol/L [facility] PATHOLOGY Osmolality, Suresh 285 275 - 300 mosm/kg [facility] CL[facility] PATHOLOGY BUN/Cre Ratio 17 [facility] PATHOLOGY Calcium 7.8 (L) 8.6 - 10.0 mg/dL [facility] CL[facility] PATHOLOGY GFR Non >90 >60 mL/min/1.73m2 [facility] 2008 CLINICAL CDK-EPI PATHOLOGY GFR >90 >60 mL/min/1.73m2 [facility] 2009 CLINICAL CKD-EPI PATHOLOGY Specimen Plasma Performing Organization Address [place]/[facility] Ph one Number [facility] [address] [place], [place] [address] PATHOLOGY from Last 3 Months 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
--- OUTSIDE RECORDS SUMMARY | 2020-04-19 23:57 | CCD ---
Author Author [facility] Organization [facility] Address Unknown Phone Unavailable Care Team Providers Care Can Capper Name Role Phone Guera WALLACE MD Unavailable Unavailable Guera WALLACE MD Unavailable Unavailable Yamilet WILL MD Unavailable Unavailable Yamilet WILL MD Unavailable Unavailable Yamilet WILL MD Unavailable Unavailable Yamilet WILL MD Unavailable Unavailable Yamilet WILL MD Unavailable Unavailable Yamilet WILL MD Unavailable Unavailable Yamilet WILL MD Unavailable Unavailable Yamilet WILL MD Unavailable Unavailable Yamilet WILL MD Unavailable Unavailable DEBI CANTU MD Unavailable Unavailable DEBI CANTU MD Unavailable Unavailable DEBI CANTU MD Unavailable Unavailable DEBI CANTU MD Unavailable Unavailable DEBI CANTU MD Unavailable Unavailable DEBI CANTU MD Unavailable Unavailable DEBI CANTU MD Unavailable Unavailable DEBI CANTU MD Unavailable Unavailable DEBI CANTU MD Unavailable Unavailable DEBI CANTU MD Unavailable Unavailable DEBI CANTU MD Unavailable Unavailable DEBI CANTU MD Unavailable Unavailable SHONA, Jatinder RILEY MD Unavailable Unavailable SHONA, Jatinder RILEY MD Unavailable Unavailable SHONA, Jatinder RILEY MD Unavailable Unavailable SHONA, Jatinder RILEY MD Unavailable Unavailable SHONA, Jatinder RILEY MD Unavailable Unavailable SHONA, Jatinder RILEY MD Unavailable Unavailable SHONA, Jatinder RILEY MD Unavailable Unavailable SHONA, Jatinder RILEY MD Unavailable Unavailable SHONA, Jatinder RILEY MD Unavailable Unavailable SHONA, Jatinder RILEY MD Unavailable Unavailable SHONA, Jatinder RILEY MD Unavailable Unavailable SHONA, Jatinder RILEY MD Unavailable Unavailable SHONA, Jatinder RILEY MD Unavailable Unavailable COOK, B LAURA NEUROLOGY PHYSICIAN ASSISTANT Unavailable Unavailable COOK, B LAURA NEUROLOGY PHYSICIAN ASSISTANT Unavailable Unavailable COOK, B LAURA NEUROLOGY PHYSICIAN ASSISTANT Unavailable Unavailable COOK, B LAURA NEUROLOGY PHYSICIAN ASSISTANT Unavailable Unavailable COOK, B LAURA NEUROLOGY PHYSICIAN ASSISTANT Unavailable Unavailable COOK, B LAURA NEUROLOGY PHYSICIAN ASSISTANT Unavailable Unavailable COOK, B LAURA NEUROLOGY PHYSICIAN ASSISTANT Unavailable Unavailable COOK, B LAURA NEUROLOGY PHYSICIAN ASSISTANT Unavailable Unavailable COOK, B LAURA NEUROLOGY PHYSICIAN ASSISTANT Unavailable Unavailable COOK, B LAURA NEUROLOGY PHYSICIAN ASSISTANT Unavailable Unavailable COOK, B LAURA NEUROLOGY PHYSICIAN ASSISTANT Unavailable Unavailable COOK, B LAURA NEUROLOGY PHYSICIAN ASSISTANT Unavailable Unavailable COOK, B LAURA NEUROLOGY PHYSICIAN ASSISTANT Unavailable Unavailable COOK, B LAURA NEUROLOGY PHYSICIAN ASSISTANT Unavailable Unavailable COOK, B LAURA NEUROLOGY PHYSICIAN ASSISTANT Unavailable Unavailable COOK, B LAURA NEUROLOGY PHYSICIAN ASSISTANT Unavailable Unavailable COOK, B LAURA NEUROLOGY PHYSICIAN ASSISTANT Unavailable Unavailable COOK, B LAURA NEUROLOGY PHYSICIAN ASSISTANT Unavailable Unavailable COOK, B LAURA NEUROLOGY PHYSICIAN ASSISTANT Unavailable Unavailable COOK, B LAURA NEUROLOGY PHYSICIAN ASSISTANT Unavailable Unavailable COOK, B LAURA NEUROLOGY PHYSICIAN ASSISTANT Unavailable Unavailable COOK, B LAURA NEUROLOGY PHYSICIAN ASSISTANT Unavailable Unavailable COOK, B LAURA NEUROLOGY PHYSICIAN ASSISTANT Unavailable Unavailable COOK, B LAURA NEUROLOGY PHYSICIAN ASSISTANT Unavailable Unavailable COOK, B LAURA NEUROLOGY PHYSICIAN ASSISTANT Unavailable Unavailable COOK, B LAURA NEUROLOGY PHYSICIAN ASSISTANT Unavailable Unavailable COOK, B LAURA NEUROLOGY PHYSICIAN ASSISTANT Unavailable Unavailable COOK, B LAURA NEUROLOGY PHYSICIAN ASSISTANT Unavailable Unavailable COOK, B LAURA NEUROLOGY PHYSICIAN ASSISTANT Unavailable Unavailable COOK, B LAURA NEUROLOGY PHYSICIAN ASSISTANT Unavailable Unavailable COOK, B LAURA NEUROLOGY PHYSICIAN ASSISTANT Unavailable Unavailable COOK, B LAURA NEUROLOGY PHYSICIAN ASSISTANT Unavailable Unavailable COOK, B LAURA NEUROLOGY PHYSICIAN ASSISTANT Unavailable Unavailable COOK, B LAURA NEUROLOGY PHYSICIAN ASSISTANT Unavailable Unavailable COOK, B LAURA NEUROLOGY PHYSICIAN ASSISTANT Unavailable Unavailable COOK, B LAURA NEUROLOGY PHYSICIAN ASSISTANT Unavailable Unavailable COOK, B LAURA NEUROLOGY PHYSICIAN ASSISTANT Unavailable Unavailable COOK, B LAURA NEUROLOGY PHYSICIAN ASSISTANT Unavailable Unavailable COOK, B LAURA NEUROLOGY PHYSICIAN ASSISTANT Unavailable Unavailable COOK, B LAURA NEUROLOGY PHYSICIAN ASSISTANT Unavailable Unavailable COOK, B LAURA NEUROLOGY PHYSICIAN ASSISTANT Unavailable Unavailable COOK, B LAURA NEUROLOGY PHYSICIAN ASSISTANT Unavailable Unavailable COOK, B LAURA NEUROLOGY PHYSICIAN ASSISTANT Unavailable Unavailable COOK, B LAURA NEUROLOGY PHYSICIAN ASSISTANT Unavailable Unavailable COOK, B LAURA NEUROLOGY PHYSICIAN ASSISTANT Unavailable Unavailable COOK, B LAURA NEUROLOGY PHYSICIAN ASSISTANT Unavailable Unavailable COOK, B LAURA NEUROLOGY PHYSICIAN ASSISTANT Unavailable Unavailable COOK, B LAURA NEUROLOGY PHYSICIAN ASSISTANT Unavailable Unavailable COOK, B LAURA NEUROLOGY PHYSICIAN ASSISTANT Unavailable Unavailable COOK, B LAURA NEUROLOGY PHYSICIAN ASSISTANT Unavailable Unavailable COOK, B LAURA NEUROLOGY PHYSICIAN ASSISTANT Unavailable Unavailable COOK, B LAURA NEUROLOGY PHYSICIAN ASSISTANT Unavailable Unavailable COOK, B LAURA NEUROLOGY PHYSICIAN ASSISTANT Unavailable Unavailable COOK, B LAURA NEUROLOGY PHYSICIAN ASSISTANT Unavailable Unavailable COOK, B LAURA NEUROLOGY PHYSICIAN ASSISTANT Unavailable Unavailable COOK, B LAURA NEUROLOGY PHYSICIAN ASSISTANT Unavailable Unavailable COOK, B LAURA NEUROLOGY PHYSICIAN ASSISTANT Unavailable Unavailable COOK, B LAURA NEUROLOGY PHYSICIAN ASSISTANT Unavailable Unavailable COOK, B LAURA NEUROLOGY PHYSICIAN ASSISTANT Unavailable Unavailable COOK, B LAURA NEUROLOGY PHYSICIAN ASSISTANT Unavailable Unavailable COOK, B LAURA NEUROLOGY PHYSICIAN ASSISTANT Unavailable Unavailable COOK, B LAURA NEUROLOGY PHYSICIAN ASSISTANT Unavailable Unavailable COOK, B LAURA NEUROLOGY PHYSICIAN ASSISTANT Unavailable Unavailable COOK, B LAURA NEUROLOGY PHYSICIAN ASSISTANT Unavailable Unavailable JOY [id number], E SAGAR [id number] Unavailable Unavailabl e JOY [id number], E SAGAR [id number] Unavailable Unavailabl e JOY [id number], E SAGAR [id number] Unavailable Unavailabl e ALEXUS, SARAH AMOL PA Unavailable Unavailable ALEXUS, SARAH AMOL PA Unavailable Unavailable ALEXUS, SARAH AMOL PA Unavailable Unavailable ALEXUS, SARAH AMOL PA Unavailable Unavailable ALEXUS, SARAH AMOL PA Unavailable Unavailable ALEXUS, SARAH AMOL PA Unavailable Unavailable ALEXUS, SARAH AMOL PA Unavailable Unavailable ALEXUS, SARAH AMOL PA Unavailable Unavailable ALEXUS, SARAH AMOL PA Unavailable Unavailable ALEXUS, SARAH AMOL PA Unavailable Unavailable ALEXUS, SARAH AMOL PA Unavailable Unavailable ALEXUS, SARAH AMOL PA Unavailable Unavailable ALEXUS, SARAH AMOL PA Unavailable Unavailable ALEXUS, SARAH AMOL PA Unavailable Unavailable ALEXUS, SARAH MAOL PA Unavailable Unavailable ALEXUS, SARAH AMOL PA Unavailable Unavailable ALEXUS, SARAH AMOL PA Unavailable Unavailable ALEXUS, SARAH AMOL PA Unavailable Unavailable ALEXUS, SARAH AMOL PA Unavailable Unavailable ALEXUS, SARAH AMOL PA Unavailable Unavailable ALEXUS, SARAH AMOL PA Unavailable Unavailable Umberto Pardo MD Unavailable Unavailable Umberto Pardo MD Unavailable Unavailable Umberto Pardo MD Unavailable Unavailable Umberto Pardo MD Unavailable Unavailable Umberto Pardo MD Unavailable Unavailable Umberto Pardo MD Unavailable Unavailable Umberto Pardo MD Unavailable Unavailable Umberto Pardo MD Unavailable Unavailable Umberto Pardo MD Unavailable Unavailable Umberto Pardo MD Unavailable Unavailable Umberto Pardo MD Unavailable Unavailable Umberto Pardo MD Unavailable Unavailable Chyna BEDOYA MD Unavailable Unavailable Chyna BEDOAY MD Unavailable Unavailable Chyna BEDOYA MD Unavailable Unavailable Chyna BEDOYA MD Unavailable Unavailable Chyna BEDOYA MD Unavailable Unavailable Chyna BEDOYA MD Unavailable Unavailable Chyna BEDOYA MD Unavailable Unavailable Chyna BEDOYA MD Unavailable Unavailable Chyna BEDOYA MD Unavailable Unavailable Chyna BEDOYA MD Unavailable Unavailable Chyna BEDOYA MD Unavailable Unavailable Chyna BEDOYA MD Unavailable Unavailable Chyna BEDOYA MD Unavailable Unavailable Chyna BEDOYA MD Unavailable Unavailable Baranello, (Santo) Maya BARCENAS Unavailable Unavailable Umberto STERLING MD Unavailable Unavailable CREAMUmberto ROWAN MD Unavailable Unavailable CREAMUmberto ROWAN MD Unavailable Unavailable CREAMUmberto ROWAN MD Unavailable Unavailable CREAMUmberto ROWAN MD Unavailable Unavailable CREAMUmberto ROWAN MD Unavailable Unavailable CREAMUmberto ROWAN MD Unavailable Unavailable Umberto STERLING MD Unavailable Unavailable CREAMUmberto ROWAN MD Unavailable Unavailable CREAMUmberto ROWAN MD Unavailable Unavailable CREAMUmberto ROWAN MD Unavailable Unavailable CREAMUmberto ROWAN MD Unavailable Unavailable CREAMUmberto ROWAN MD Unavailable Unavailable CREAMUmberto ROWAN MD Unavailable Unavailable Umberto STERLING MD Unavailable Unavailable CREAMUmberto ROWAN MD Unavailable Unavailable CREAMUmberto ROWAN MD Unavailable Unavailable CREAMUmberto ROWAN MD Unavailable Unavailable CREAMUmberto ROWAN MD Unavailable Unavailable CREAMUmberto ROWAN MD Unavailable Unavailable CREAMUmberto ROWAN MD Unavailable Unavailable CREAMUmberto ROWAN MD Unavailable Unavailable CREAMUmberto ROWAN MD Unavailable Unavailable CREAMUmberto ROWAN MD Unavailable Unavailable CREAMUmberto ROWAN MD Unavailable Unavailable CREAMUmberto ROWAN MD Unavailable Unavailable CREAMUmberto ROWAN MD Unavailable Unavailable CREAMERUmberto MD Unavailable Unavailable Umberto STERLING MD Unavailable Unavailable RAMÓN, VALDO Unavailable Unavailable TURRIN, ISABEL Unavailable Unavailable TURRIN, ISABEL Unavailable Unavailable TURRIN, ISABEL Unavailable Unavailable TURRIN, ISABEL Unavailable Unavailable Saira CHILEL MD Unavailable Unavailable ANDONIANSaira MD Unavailable Unavailable ANDSaira VILLAVICENCIO MD Unavailable Unavailable ANDSaira VILLAVICENCIO MD Unavailable Unavailable ANDSaira VILLAVICENCIO MD Unavailable Unavailable ANDONIASaira Huitron MD Unavailable Unavailable ANDONIASaira Huitron MD Unavailable Unavailable Saira CHILEL MD Unavailable Unavailable [id number], [id number] Unavailable [phone] MEDENT_8646, [id number] Unavailable [phone] MEDENT_8646, [id number] Unavailable +[phone] MEDENT_8646, [id number] Unavailable +[phone] MEDENT_8646, [id number] Unavailable +[phone] MEDENT_8646, [id number] Unavailable +[phone] MEDENT_8646, [id number] Unavailable +[phone] MEDENT_8646, [id number] Unavailable +[phone] MEDENT_8646, [id number] Unavailable +[phone] MEDENT_8646, [id number] Unavailable +[phone] MEDENT_8646, [id number] Unavailable +[phone] MEDENT_8646, [id number] Unavailable +[phone] MEDENT_8646, [id number] Unavailable +[phone] MEDENT_8646, [id number] Unavailable +[phone] MEDENT_8646, [id number] Unavailable +[phone] MEDENT_8646, [id number] Unavailable +[phone] MEDENT_8646, [id number] Unavailable +[phone] MEDENT_8646, [id number] Unavailable +[phone] MEDENT_8646, [id number] Unavailable +[phone] MEDENT_8646, [id number] Unavailable +[phone] MEDENT_8646, [id number] Unavailable +[phone] MEDENT_8646, [id number] Unavailable +[phone] MEDENT_8646, [id number] Unavailable +[phone] MEDENT_8646, [id number] Unavailable +[phone] Davidson, W Austin RPA-C Unavailable Unavailable Davidson, W Austin RPA-C Unavailable Unavailable Davidson, W Austin RPA-C Unavailable Unavailable Davidson, W Austin RPA-C Unavailable Unavailable Davidson, W Austin RPA-C Unavailable Unavailable Davidson, W Austin RPA-C Unavailable Unavailable Davidson, W Austin RPA-C Unavailable Unavailable Davidson, W Austin RPA-C Unavailable Unavailable Davidson, W Austin RPA-C Unavailable Unavailable Davidson, W Austin RPA-C Unavailable Unavailable Davidson, W Austin RPA-C Unavailable Unavailable Davidson, W Austin RPA-C Unavailable Unavailable Davidson, W Austin RPA-C Unavailable Unavailable Davidson, W Austin RPA-C Unavailable Unavailable Davidson, W Austin RPA-C Unavailable Unavailable Davidson, W Austin RPA-C Unavailable Unavailable DEXTER, L HUEY PA Unavailable Unavailable DEXTER, L HUEY PA Unavailable Unavailable DEXTER, L HUEY PA Unavailable Unavailable DEXTER, L HUEY PA Unavailable Unavailable DEXTER, L HUEY PA Unavailable Unavailable DEXTER, L HUEY PA Unavailable Unavailable DEXTER, L HUEY PA Unavailable Unavailable DEXTER, L HUEY PA Unavailable Unavailable DEXTER, L HUEY PA Unavailable Unavailable DEXTER, L HUEY PA Unavailable Unavailable DEXTER, L HUEY PA Unavailable Unavailable DEXTER, L HUEY PA Unavailable Unavailable DEXTER, L HUEY PA Unavailable Unavailable DEXTER, L HUEY PA Unavailable Unavailable DEXTER, L HUEY PA Unavailable Unavailable DEXTER, L HUEY PA Unavailable Unavailable DEXTER, L HUEY PA Unavailable Unavailable DEXTER, L HUEY PA Unavailable Unavailable DEXTER, L HUEY PA Unavailable Unavailable Jatinder HESS MD Unavailable Unavailable Jatinder HESS MD Unavailable Unavailable Jatinder HESS MD Unavailable Unavailable Jatinder HESS MD Unavailable Unavailable Jatinder HESS MD Unavailable Unavailable Jatinder HESS MD Unavailable Unavailable Jatinder HESS MD Unavailable Unavailable Jatinder HESS MD Unavailable Unavailable Jatinder HESS MD Unavailable Unavailable Jatinder HESS MD Unavailable Unavailable Jatinder HESS MD Unavailable Unavailable Jatinder HESS MD Unavailable Unavailable Jatinder HESS MD Unavailable Unavailable SMITH HERNANDEZ MD Unavailable Unavailable SMITH HERNANDEZ MD Unavailable Unavailable SMITH HERNANDEZ MD Unavailable Unavailable SMITH HERNANDEZ MD Unavailable Unavailable SMITH HERNANDEZ MD Unavailable Unavailable [place] G Emili Unavailable Unavailable [place], G Emili Unavailable Unavailable [place], G Emili Unavailable Unavailable Jose Alejandro Núñez MD Unavailable Unavailable Jose Alejandro Núñez MD Unavailable Unavailable Jose Alejandro Núñez MD Unavailable Unavailable Jose Alejandro Núñez MD Unavailable Unavailable Jose Alejandro Núñez MD Unavailable Unavailable Jose Alejandro Núñez MD Unavailable Unavailable Jose Alejandro Núñez MD Unavailable Unavailable Jose Alejandro Núñez MD Unavailable Unavailable Jose Alejandro Núñez MD Unavailable Unavailable Jose Alejandro Núñez MD Unavailable Unavailable Jose Alejandro Núñez MD Unavailable Unavailable Jose Alejandro Núñez MD Unavailable Unavailable Jose Alejandro Núñez MD Unavailable Unavailable Jose Alejandro Núñez MD Unavailable Unavailable Jose Alejandro Núñez MD Unavailable Unavailable Jose Alejandro Núñez MD Unavailable Unavailable Jose Alejandro Núñez MD Unavailable Unavailable Jose Alejandro Núñez MD Unavailable Unavailable Jose Alejandro Núñez MD Unavailable Unavailable Jose Alejandro Núñez MD Unavailable Unavailable Jose Alejandro Núñez MD Unavailable Unavailable Jose Alejandro Núñez MD Unavailable Unavailable Jose Alejandro Núñez MD Unavailable Unavailable Jose Alejandro Núñez MD Unavailable Unavailable Jose Alejandro Núñez MD Unavailable Unavailable Jose Alejandro Núñez MD Unavailable Unavailable Jose Alejandro Núñez MD Unavailable Unavailable Guera Dotson MD Unavailable Unavailable Guera Dotson MD Unavailable Unavailable Guera Dotson MD Unavailable Unavailable Guera Dotson MD Unavailable Unavailable Guera Dotson MD Unavailable Unavailable Guera Dotson MD Unavailable Unavailable Guera Dotson MD Unavailable Unavailable Guera Dotson MD Unavailable Unavailable Guera Dotson MD Unavailable Unavailable Guera Dotson MD Unavailable Unavailable Guera Dotson MD Unavailable Unavailable Guera Dotson MD Unavailable Unavailable Guera Dotson MD Unavailable Unavailable Guera Dotson MD Unavailable Unavailable Guera Dotson MD Unavailable Unavailable Guera Dotson MD Unavailable Unavailable Guera Dotson MD Unavailable Unavailable Citlali Smith Ace Unavailable Unavailable Citlali Smith Ace Unavailable Unavailable Luis, B Ace Unavailable Unavailable BUENO, J ROSANA PA Unavailable Unavailable BUENO, J ROSANA PA Unavailable Unavailable BUENO, J ROSANA PA Unavailable Unavailable BUENO, J ROSANA PA Unavailable Unavailable BUENO, J ROSANA PA Unavailable Unavailable BUENO, J ROSANA PA Unavailable Unavailable BUENO, J ROSANA PA Unavailable Unavailable BUENO, J ROSANA PA Unavailable Unavailable BUENO, J ROSANA PA Unavailable Unavailable BUENO, J ROSANA PA Unavailable Unavailable BUENO, J ROSANA PA Unavailable Unavailable BUENO, J ROSANA PA Unavailable Unavailable BUENO, J ROSANA PA Unavailable Unavailable BUENO, J ROSANA PA Unavailable Unavailable BUENO, J ROSANA PA Unavailable Unavailable BUENO, J ROSANA PA Unavailable Unavailable BUENO, J ROSANA PA Unavailable Unavailable BUENO, J ROSANA PA Unavailable Unavailable BUENO, J ROSANA PA Unavailable Unavailable BUENO, J ROSANA PA Unavailable Unavailable BUENO, J ROSANA PA Unavailable Unavailable BUENO, J ROSANA PA Unavailable Unavailable BUENO, J ROSANA PA Unavailable Unavailable BUENO, J ROSANA PA Unavailable Unavailable BUENO, J ROSANA PA Unavailable Unavailable BUENO, J ROSANA PA Unavailable Unavailable BUENO, J ROSANA PA Unavailable Unavailable VIKI RIZO Unavailable Unavailable She, J Renzo PA-C Unavailable Unavailable She, J Renzo PA-C Unavailable Unavailable She, J Renzo PA-C Unavailable Unavailable She, J Renzo PA-C Unavailable Unavailable She, J Renzo PA-C Unavailable Unavailable She, J Renzo PA-C Unavailable Unavailable She, J Renzo PA-C Unavailable Unavailable She, J Renzo PA-C Unavailable Unavailable She, J Renzo PA-C Unavailable Unavailable She, J Renzo PA-C Unavailable Unavailable She, J Renzo PA-C Unavailable Unavailable Bijan Schroeder Unavailable Unavailable Bijan Schroeder Unavailable Unavailable Alexandre, D Quinten Unavailable Unavailable Alexandre, D Quinten Unavailable Unavailable Alexandre, D Quinten Unavailable Unavailable Alexandre, D Quinten Unavailable Unavailable Alexandre, D Quinten Unavailable Unavailable Alexandre, D Quinten Unavailable Unavailable Alexandre, D Quinten Unavailable Unavailable Alexandre, D Quinten Unavailable Unavailable Alexandre, D Quinten Unavailable Unavailable Alexandre, D Quinten Unavailable Unavailable Alexandre, D Quinten Unavailable Unavailable Alexandre, D Quinten Unavailable Unavailable Alexandre, D Quinten Unavailable Unavailable Alexandre, D Quinten Unavailable Unavailable Yamilet WILL MD Unavailable Unavailable VENEYamilet SOLOMON MD Unavailable Unavailable VENEYamilet SOLOMON MD Unavailable Unavailable VENERUYamilet Aguilar MD Unavailable Unavailable VENEYamilet SOLOMON MD Unavailable Unavailable VENERUSYamilet MD Unavailable Unavailable VENERUSYamilet MD Unavailable Unavailable VENERUSYamilet MD Unavailable Unavailable VENERUYamilet Aguilar MD Unavailable Unavailable JEANIE, F CLYDE DO Unavailable Unavailable JEANIE, F CLYDE DO Unavailable Unavailable JEANIE, F CLYDE DO Unavailable Unavailable JEANIE, F CLYDE DO Unavailable Unavailable JEANIE, F CLYDE DO Unavailable Unavailable JEANIE, F CLYDE DO Unavailable Unavailable JEANIE, F CLYDE DO Unavailable Unavailable JEANIE, F CLYDE DO Unavailable Unavailable JEANIE, F CLYDE DO Unavailable Unavailable JEANIE, F CLYDE DO Unavailable Unavailable JEANIE, F CLYDE DO Unavailable Unavailable JEANIE, F CLYDE DO Unavailable Unavailable JEANIE, F CLYDE DO Unavailable Unavailable JEANIE, F CLYDE DO Unavailable Unavailable JEANIE, F CLYDE DO Unavailable Unavailable JEANIE, F CLYDE DO Unavailable Unavailable JEANIE, F CLYDE DO Unavailable Unavailable JEANIE, F CLYDE DO Unavailable Unavailable JEANIE, F CLYDE DO Unavailable Unavailable JEANIE, F CLYDE DO Unavailable Unavailable JEANIE, F CLYDE DO Unavailable Unavailable JEANIE, F CLYDE DO Unavailable Unavailable JEANIE, F CLYDE DO Unavailable Unavailable JEANIE, F CLYDE DO Unavailable Unavailable JEANIE, F CLYDE DO Unavailable Unavailable JEANIE, F CLYDE DO Unavailable Unavailable JEANIE, F CLYDE DO Unavailable Unavailable JEANIE, F CLYED DO Unavailable Unavailable JEANIE, F CLYDE DO Unavailable Unavailable JEANIE, F CLYDE DO Unavailable Unavailable JEANIE, F CLYDE DO Unavailable Unavailable JEANIE, F CLYDE DO Unavailable Unavailable Re-disclosure Warning The records that you are about to access may contain information from federally-assisted alcohol or drug abuse programs. If such information is present, then the following federally mandated warning applies: This information has been disclosed to you from records protected by federal confidentiality rules (42 CFR part 2). The federal rules prohibit you from making any further disclosure of this information unless further disclosure is expressly permitted by the written consent of the person to whom it pertains or as otherwise permitted by 42 CFR part 2. A general authorization for the release of medical or other information is NOT sufficient for this purpose. The Federal rules restrict any use of the information to criminally investigate or prosecute any alcohol or drug abuse patient.The records that you are about to access may contain highly sensitive health information, the redisclosure of which is protected by Article 27-F of the [facility] Public Health law. If you continue you may have access to information: Regarding HIV / AIDS; Provided by facilities licensed or operated by the [facility] Office of Mental Health; or Provided by the [facility] Office for People With Developmental Disabilities. If such information is present, then the following [facility] mandated warning applies: This information has been disclosed to you from confidential records which are protected by state law. State law prohibits you from making any further disclosure of this information without the specific written consent of the person to whom it pertains, or as otherwise permitted by law. Any unauthorized further disclosure in violation of state law may result in a fine or prison sentence or both. A general authorization for the release of medical or other information is NOT sufficient authorization for further disc losure. Allergies and Adverse Reactions Type Description Substance Reaction Status Data Source(s ) Drug allergy acetazolamide acetazolamide Hives [facility] Drug allergy Sulfa (Sulfonamide Antibiotics) Sulfa (Sulfonamide Ant ibiotics) [facility] ENVIRONMENTAL BEE STING BEE STING [facility] CLASS SULFA (sulfonamide) SULFA (sulfonamide) [facility] Family History Family Member Name Family Member Gender Family Member Status Date o f Status Description Data Source(s) Unknown Condition Family Member ADHD [facility] Unknown Condition Family Member ADHD [facility] Unknown Condition Family Member ADHD [facility] Unknown Condition Family Member ADHD [facility] Unknown Condition Family Member ADHD [facility] Unknown Condition Family Member ADHD [facility] Unknown Condition Family Member ADHD [facility] Unknown Condition Family Member ADHD [facility] Unknown [facility] Family Member ADHD [facility] Unknown Condition [facility] Unknown Condition [facility] Unknown Condition [facility] Unknown Male Problem MEDENT ([facility]) Unknown Unknown Problem [facility] ([facility] Unknown Unknown Problem [facility] ([facility]) Encounters Encounter Providers Location Date Indications Data Source(s ) Emergency Attender: Maya Snyder MD 04/04 08:39:00 PM EST - 04/05/2020 12:30:00 AM EST ABDOMINAL PAIN, BLOOD IN URINE [facility] ABDOMINAL PAIN, BLOOD IN URINE Patient discharged. Outpatient Attender: Quinten Schroeder 03/25/2020 12:00: 00 AM EST Dysthymic disorder [facility] Dysthymic disorder Outpatient Attender: Quinten Schroeder 02/19/2020 12:00: 00 AM EST Dysthymic disorder [facility] Dysthymic disorder Outpatient Attender: ZAHIRA HESS MD 2019 07:30:00 AM [facility] - 02/17/2020 11:07:00 AM [facility] Patient discharged. Emergency Attender: AMOL BALBUENA EMERGENCY ROOM-ER 02/09/2020 06:07:00 PM [facility] - 02/09/2020 08:22:00 PM [facility] Patient discharged. Emergency Attender: HAZEL RIZO 02/06/20 11:25:00 PM [facility] - 02/06/2020 11:40:00 PM [facility] Patient discharged. Outpatient Attender: ZAHIRA HESS MD 2019 11:00:00 AM EST - 02/06/2020 11:00:00 AM [facility] Outpatient Attender: Quinten Schroeder 01/26/2020 12:00: 00 AM EST Dysthymic disorder [facility] Dysthymic disorder Outpatient Attender: Emili Berger 01/23/2020 12:00:00 A M [facility] Outpatient Attender: Quinten SchroederAttender: Emili Berger 12/22/2019 12:00:00 AM EDT [facility] Emergency Attender: SMITH HERNANDEZ MDAttender: OSVALDO GEIGER MD 07A-ERMADULT 12/06/2019 12:00:00 AM EDT - 12/06/2019 01:16:00 PM EDT Other headache syndrome [facility] Other headache syndrome Patient discharged. Emergency Attender: INOCENCIO WILL MD 12/04 05:39:00 PM EDT - 12/05/2019 10:50:[address] [facility] Patient discharged. Outpatient Attender: Quinten Schroeder 12/05/2019 12:00:00 AM EDT [facility] Outpatient Attender: Quinten Schroeder 11/24/2019 12:00:00 AM EDT [facility] Outpatient Attender: Quinten SchroederAttender: Emili Berger 11/24/2019 12:00:00 AM EDT [facility] Emergency Attender: HUEY BALBUENA EMERGENCY ROOM-ER 11:38:00 PM EDT - 11/23/2019 12:51:00 AM [facility] Patient discharged. Outpatient Attender: Emili Berger 11/17/2019 12:00:00 A M [facility] Outpatient Attender: Emili Berger 11/12/2019 12:00:00 A M [facility] Emergency Attender: AMOL BALBUENA EMERGENCY ROOM-ER 09/16/2019 04:40:00 PM EDT - 09/16/2019 08:45:00 PM [facility] Patient discharged. Outpatient 09/12/2019 04:47:00 PM EDT [facility] Emergency Attender: INOCENCIO WILL MD 09/11 04:29:00 PM EDT - 09/12/2019 07:08:[address] [facility] Patient discharged. Outpatient Attender: Emili Berger 09/11/2019 12:00:00 A M [facility] Outpatient Attender: Emili BergerAttender: Quinten Schroeder 09/04/2019 12:00:00 AM T [facility] Outpatient Attender: LAURA MERCADO NP Physical Therapy 09/03/2019 1 1:30:00 AM EDT [facility] ([facility]) Outpatient Attender: Quinten Schroeder 08/29/2019 12:00:00 AM EDT [facility] Outpatient 08/27/2019 05:55:00 AM EDT [facility] Outpatient Attender: Quinten Schroeder 08/27/2019 12:00: 00 AM EDT Dysthymic disorder [facility] Dysthymic disorder Outpatient Attender: Quinten Schroeder 08/13/2019 12:00:00 AM EDT [facility] Outpatient Attender: SAURAV TORRES MDReferrer: SAURAV TORRES MD 07/22/2019 12:00:00 AM EDT [facility] Outpatient 07/22/2019 12:00:00 AM EDT [facility] Outpatient Attender: EMILI BEDOYA MDReferrer: EMILI SOLIZ MD 07/22/2019 12:00:00 AM EDT [facility] Emergency Attender: AMOL BALBUENA EMERGENCY ROOM-TABATHA RGENCY ROOM 07/21/2019 01:04:00 PM EDT - 07/21/2019 01:04:00 PM EDT [facility] Patient discharged. Outpatient Attender: BAKARI STERLING MD Attender: NURA CANTU MDAttender: SAURAV TORRES MDAttender: EMILI BEDOYA MDAttender: Randy Pardo MDAdmitter: SAURAV TORRES MDReferrer: SAURAV TORRES MD [id number] 07/21/2019 12:00:00 AM EDT - 07/23/2019 02:52:00 PM EDT Benign intracranial hypertension [facility] Benign intracranial hypertension Patient discharged. 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 Patient discharged. Outpatient 06/25/2019 05:07:00 AM EDT [facility] Outpatient 06/19/2019 01:06:00 PM EDT [facility] Emergency Attender: ISABEL AZAR 2019 12:28:00 PM EDT - 06/19/2019 03:36:[address] [facility] Patient discharged. Emergency Attender: AMOL BALBUENA EMERGENCY ROOM-[facility] RGENCY ROOM 06/09/2019 06:00:00 PM EDT - 06/09/2019 06:00:00 PM EDT [facility] Patient [facility] Outpatient Attender: LAURA MERCADO NP Physical Therapy 04/15/2019 1 2:45:00 PM EST [facility] ([facility]) Outpatient 04/12/2019 09:05:[address] [facility] Emergency Attender: CLYDE WARE DO 2019 07:48:00 PM EST - 04/12/2019 11:03:00 PM [facility] Patient discharged. Emergency Attender: Clyde Dotson MDAttender: BRENDA MG MD 07A-ADULTERM 04/08/2019 12:00:00 AM EST - 04/08/2019 10:24:00 AM [facility] Other general symptoms and signs [facility] Other general symptoms and signs Patient discharged. Emergency Attender: HUEY BALBUENA EMERGENCY ROOM-ER 06:55:00 PM EST - 04/07/2019 09:45:00 PM [facility] Patient discharged. Outpatient Attender: VALDO MELGARReferrer: Maxwell Núñez MD 03/31/2019 08:39:00 AM [facility] - 03/31/2019 08:39:00 AM [facility] Outpatient Attender: VALDO MELGARReferrer: Maxwell Núñez MD 03/25/2019 07:47:00 AM [facility] - 03/25/2019 07:47:00 AM [facility] Outpatient Attender: ROSANA BALBUENA 03/13 09:14:00 AM [facility] - 03/13/2019 09:14:00 AM [facility] Outpatient Attender: VALDO MELGARReferrer: Maxwell Núñez MD 03/11/2019 12:31:00 PM [facility] - 03/11/2019 12:31:00 PM [facility] Emergency Attender: Renzo Nowak PA-C 01:42:00 PM EST - 03/04/2019 05:05:00 PM [facility] Patient discharged. Emergency Attender: Austin Davidson RPA-CReferrer: [phone] [id number] EMERGENCY ROOM-ER 02/28/2019 03:47:00 PM EST - 02/28/2019 08:10:00 PM [facility] Patient discharged. Emergency Attender: Ace Murraydevanender: SAGAR ROSENTHAL [id number] 07A-ERMADULT 02/28/2019 12:00:00 AM EST - 03/01/2019 05:07:00 AM EST Cervicalgia [facility] Cervicalgia Patient discharged. Medications Medication Brand Name Start Date Product Form Dose Route Admi nistrative Instructions Pharmacy Instructions Status Indications Reaction Description Data Source(s) Ondansetron 4 MG Disintegrating Oral Tablet Ondansetron 04/04/2020 09:11:38 PM EST 8 MG active [facility] topiramate 200 MG Oral Tablet Topiramate (Topamax) 200 mg tablet Topiramate (Topamax) 200 mg tablet 04/04/2020 09:11:38 PM EST [address] [facility] Hyoscyamine Sulfate 0.125 MG Sublingual Tablet Hyoscyamine S ulfate 04/04/2020 09:11:38 PM EST 0.125 MG active [facility] Acetaminophen 325 MG Oral Tablet Acetaminophen 04/04/2020 09:11:38 PM EST 975 MG active [facility] Furosemide 20 MG Oral Tablet Furosemide 04/04/2020 09:11:38 PM EST 20 MG active [facility] Oxycodone Oxycodone (Oxycontin) 10 mg tablet,oral only ,ext.rel.12 hr Oxycodone (Oxycontin) 10 mg tablet,oral only,ext.rel.12 hr 04/04/2020 09:11:38 PM EST 10 MG active [facility] Oxycodone Hydrochloride 10 MG Oral Tablet oxyCODONE HC l 10 MG Oral Tablet oxyCODONE HCl 10 MG Oral Tablet 02/19/2020 12:00:00 AM EST 1 {tbl} O ral active Take 1 tablet by mary th every 4 (four) hours as needed for up to 3 days, Max Daily Dose: 6 tablets [facility] Oxycodone Hydrochloride 10 MG Oral Tablet Oxycodone HCL 02/06/2020 12:00:00 AM EST ORAL active [facility] ([facility]) Oxycodone Hydrochloride 10 MG Oral Tablet oxyCODONE HC l 10 MG Oral Tablet oxyCODONE HCl 10 MG Oral Tablet 01/26/2020 12:00:00 AM EST 10 mg O ral completed Take 10 mg by mouth every 4 (four) hours as needed for up to 3 days, Max Daily Dose: 60 mg [facility] Hyoscyamine Sulfate 0.125 MG Oral Tablet Hyoscyamine Sulfate 0.125 MG Oral Tablet (LEVSIN) Hyoscyamine Sulfate 0.125 MG Oral Tablet (LEVSIN) 12/03 12:00:00 AM EDT 0.125 mg Oral active Take 1 tablet by mouth every 4 (four) hours as needed for Cramping [facility] Baclofen 10 MG Oral Tablet Baclofen 10 MG Oral Tablet (LIORESAL) Baclofen 10 MG Oral Tablet (LIORESAL) 12/22/2019 12:00:00 AM EDT active 1 po tid prn muscle spasm [facility] Cyclobenzaprine hydrochloride 10 MG Oral Tablet Cyclobenzaprine HCl 10 MG Oral Tablet (FLEXERIL) Cyclobenzaprine HCl 10 MG Oral Tablet (FLEXERIL) 12/21 12:00:00 AM EDT active 1 po tid prn muscle spasm [facility] Oxycodone Hydrochloride 10 MG Oral Tablet oxyCODONE HC l 10 MG Oral Tablet oxyCODONE HCl 10 MG Oral Tablet 12/22/2019 12:00:00 AM EDT 10 mg O ral active Take 10 mg by mouth every 4 (four) hours as needed for up to 3 days, Max Daily Dose: 60 mg [facility] tizanidine 4 MG Oral Capsule tiZANidine HCl 4 MG Oral Capsule (ZANAFLEX) tiZANidine HCl 4 MG Oral Capsule (ZANAFLEX) 12/22/2019 12:00:00 AM EDT 4 mg Oral active Take 1 capsule by [facility] Three times daily [facility] Ondansetron 8 MG Disintegrating Oral Tab let Ondansetron 8 MG Oral Tablet Disintegrating (ZOFRAN-ODT) Ondansetron 8 MG Oral Tablet Disintegrat ing (ZOFRAN-ODT) 12/22/2019 12:00:00 AM EDT 8 mg Oral compl eted Take 1 tablet by mouth every 8 (eight) hours as needed for Nausea or Vomiting for up to 7 days [facility] Hyoscyamine Sulfate 0.125 MG Oral Tablet Hyoscyamine Sulfate 0.125 MG Oral Tablet (LEVSIN) Hyoscyamine Sulfate 0.125 MG Oral Tablet (LEVSIN) 07/2019 12:00:00 AM EDT aborted TAKE 1 TABLET BY MOUTH EVERY 4 HOURS NEEDED FOR CRAMPING OR DIARRHEA [facility] magnesium sulfate in dextrose 5 % infusion (premix) 8 mEq [id number] 12/06/2019 09:30:00 AM EDT 8 meq Intravenous completed 8 mEq, Intravenous, Administer over 60 Minutes, Once, 12/06/19 at 0930, For 1 dose
8 mEq = 1 g magnesium sulfate
[facility] Medication administered onsite 1 ML Ketorolac Tromethamine 15 MG/ML [place] ketorolac (TORADOL) 15 MG/ML injection 15 mg ketorolac (TORADOL) 15 MG/ML injection 15 mg 0 07:30:00 AM EDT 15 mg Intravenous completed 15 mg, Intravenous, Once, 12/06/19 at 0730, For 1 dose [facility] Medication administered onsite lactated ringers bolus 1,000 mL [id number] 12/06/2019 07:30:00 AM EDT 1000 mL Intravenous completed 1,000 mL , Intravenous, Once, 12/06/19 at 0730, For 1 dose [facility] Medication administered onsite 2 ML Metoclopramide 5 MG/ML Prefilled Sy ringe metoclopramide (REGLAN) injection 10 mg metoclopramide (REGLAN) injection 10 mg 12/06/2019 07:30:00 AM E DT 10 mg Intravenous completed 10 mg, I ntravenous, Once, 12/06/19 at 0730, For 1 dose [facility] Medication administered onsite ondansetron (ZOFRAN) injection 4 mg [id number] 12/06/2019 02:45:0 0 AM EDT 4 mg Given by IV completed 4 mg, Gi branden by IV, Once, 12/06/19 at 0245, For 1 dose [facility] Medication administered onsite Ondansetron 4 MG Disintegrating Oral Tab let Ondansetron 4 MG Oral Tablet Disintegrating (ZOFRAN-ODT) Ondansetron 4 MG Oral Tablet Disintegrat ing (ZOFRAN-ODT) 12/04/2019 12:00:00 AM EDT 8 mg Oral activ e Take 2 tablets by mouth every 8 (eight) hours as needed for Nausea [facility] Oxycodone Hydrochloride 10 MG Oral Tablet oxyCODONE HC l 10 MG Oral Tablet oxyCODONE HCl 10 MG Oral Tablet 11/25/2019 12:00:00 AM EDT 1 {tbl} O ral completed Take 1 tablet by mary th every 4 (four) hours as needed for up to 3 days, Max Daily Dose: 6 tablets [facility] Baclofen 10 MG Oral Tablet Baclofen 10 MG Oral Tablet (LIORESAL) Baclofen 10 MG Oral Tablet (LIORESAL) 11/24/2019 12:00:00 AM EDT aborted 1 po tid prn muscle spasm [facility] Ondansetron 8 MG Disintegrating Oral Tab let Ondansetron 8 MG Oral Tablet Disintegrating (ZOFRAN-ODT) Ondansetron 8 MG Oral Tablet Disintegrat ing (ZOFRAN-ODT) 11/24/2019 12:00:00 AM EDT 8 mg Oral compl eted Take 1 tablet by mouth every 8 (eight) hours as needed for Nausea or Vomiting for up to 7 days [facility] Oxycodone Hydrochloride 10 MG Oral Tablet oxyCODONE HC l 10 MG Oral Tablet oxyCODONE HCl 10 MG Oral Tablet 11/24/2019 12:00:00 AM EDT 1 {tbl} O ral aborted Take 1 tablet by mary th every 4 (four) hours as needed for up to 3 days, Max Daily Dose: 6 tablets [facility] Acetaminophen 325 MG / Hydrocodone Alec trate 5 MG Oral Tablet HYDROcodone- Acetaminophen 5-325 MG Oral Tablet (LORTAB) HYDROcodone-Acetaminophen 5-325 MG Oral Tablet (LORTAB) 11/17/2019 12:00:00 AM EDT 1 {tbl} Oral completed Take 1 tablet by mouth every 3 (three) h ours as needed for Pain, Max Daily Dose: 8 tablets [facility] Hyoscyamine Sulfate 0.125 MG Oral Tablet Hyoscyamine Sulfate 0.125 MG Oral Tablet (LEVSIN) Hyoscyamine Sulfate 0.125 MG Oral Tablet (LEVSIN) 11/03 12:00:00 AM EDT 0.125 mg Oral aborted Take 1 tablet by mouth every 4 (four) hours as needed for Cramping or Diarrhea [facility] Buprenorphine 8 MG Sublingual Tablet Bup renorphine HCl 8 MG Sublingual Tablet Sublingual (SUBUTEX) Buprenorphine HCl 8 MG Sublingual Tablet Sublingual (SUBUTEX) 11/12/2019 12:00:00 AM EDT mg Sublingual comp leted Place 1- 4 tablets under the tongue once for 1 dose, Max Daily Dose: 32 mg [facility] olanzapine 10 MG Oral Tablet OLANZapine 10 MG Oral Tab let (ZYPREXA) OLANZapine 10 MG Oral Tablet (ZYPREXA) 11/12/2019 12:00:00 AM EDT 10 mg Oral completed Take 1 tablet by mouth once as n eeded MDD: 1 tablet [facility] Clonidine Hydrochloride 0.1 MG Oral Tabl et cloNIDine HCl 0.1 MG Oral Tablet (CATAPRES) cloNIDine HCl 0.1 MG Oral Tablet (CATAPRES) 11/12/2019 12:00:00 AM EDT 0.1 mg Oral aborted Take 1 t ablet by mouth Three times daily as needed MDD: 3 tablets [facility] Hyoscyamine Sulfate 0.125 MG Sublingual Tablet Hyoscyamine Sulfate 0.125 MG Sublingual Tablet Sublingual (LEVSIN/SL) Hyoscyamine Sulfate 0.125 MG Sublingual Tablet Sublingual (LEVSIN/SL) 11/12/2019 12:00:00 AM EDT 0.125 mg Ora l active Take 1 tablet by mary th every hour as needed for Cramping for up to 10 daysMDD: 6 tablets [facility] Trazodone Hydrochloride 100 MG Oral Tabl et traZODone HCl 100 MG Oral Tablet (DESYREL) traZODone HCl 100 MG Oral Tablet (DESYREL) 11/12/2019 12:00: 00 AM EDT mg Oral completed Take 1-3 table ts by mouth See Admin Instructions MDD: 3 tablets [facility] gabapentin 600 MG Oral Tablet Gabapentin 600 MG Oral T ablet (NEURONTIN) Gabapentin 600 MG Oral Tablet (NEURONTIN) 11/12/2019 12:00:00 AM EDT mg Oral aborted Take 1-2 tablet s by mouth nightly as needed (insomnia or restless legs) [facility] Naltrexone hydrochloride 50 MG Oral Tabl et Naltrexone HCl 50 MG Oral Tablet (DEPADE) Naltrexone HCl 50 MG Oral Tablet (DEPADE) 11/12/2019 12:00:00 AM EDT active Mix soluti on as per your worksheet. Do not take 1 full tablet! [facility] Metoclopramide 10 MG Oral Tablet Metoclopramide HCl 10 MG Oral Tablet (REGLAN) Metoclopramide HCl 10 MG Oral Tablet (REGLAN) 11/12/2019 12:00:00 AM EDT 10 mg Oral completed Take 1 tab let by mouth every 6 (six) hours as needed for nausea. [facility] Oxycodone Hydrochloride 10 MG Oral Tablet oxyCODONE HC l 10 MG Oral Tablet oxyCODONE HCl 10 MG Oral Tablet 11/12/2019 12:00:00 AM EDT mg O ral aborted Take 10-20 mg by mouth daily as needed , Max Daily Dose: 20 mg [facility] Acetaminophen 325 MG / Hydrocodone Alec trate 5 MG Oral Tablet HYDROcodone- Acetaminophen 5-325 MG Oral Tablet (LORTAB) HYDROcodone-Acetaminophen 5-325 MG Oral Tablet (LORTAB) 09/11/2019 12:00:00 AM EDT 1 {tbl} Oral active Take 1 tablet by mouth every 3 (three) hours as needed for Pain, Max Daily Dose: 8 tablets [facility] tizanidine 4 MG Oral Tablet tiZANidine HCl 4 MG Oral T ablet (Zanaflex) tiZANidine HCl 4 MG Oral Tablet (Zanaflex) 09/11/2019 12:00:00 AM EDT 4 mg Oral active Take 1 tablet by mary th every 6 (six) hours as needed [facility] Hyoscyamine Sulfate 0.125 MG Oral Tablet Hyoscyamine Sulfate 0.125 MG Oral Tablet (LEVSIN) Hyoscyamine Sulfate 0.125 MG Oral Tablet (LEVSIN) 11/2019 12:00:00 AM EDT 0.125 mg Oral active Take 1 tablet by mouth every 4 (four) hours as needed for Cramping [facility] Acetaminophen 300 MG / Hydrocodone Alec trate 5 MG Oral Tablet HYDROcodone- Acetaminophen 5-300 MG Oral Tablet HYDROcodone-Acetaminophen 5-300 MG Oral Tablet 09/04/2019 12:00:00 AM EDT 1 {tbl} Oral aborted Take 1 tablet by mouth every 3 (three) hours as needed , Max Daily Dose: 8 tablets [facility] Hyoscyamine Sulfate 0.125 MG Oral Tablet Hyoscyamine Sulfate 0.125 MG Oral Tablet (LEVSIN) Hyoscyamine Sulfate 0.125 MG Oral Tablet (LEVSIN) 04/2019 12:00:00 AM EDT 0.125 mg Oral aborted Take 1 tablet by mouth every 4 (four) hours as needed for Cramping for up to 10 days [facility] tizanidine 4 MG Oral Tablet tiZANidine HCl 4 MG Oral T ablet (Zanaflex) tiZANidine HCl 4 MG Oral Tablet (Zanaflex) 09/04/2019 12:00:00 AM EDT 4 mg Oral aborted Take 1 tablet by mouth every 6 (six) hours as needed for up to 10 days [facility] Acetaminophen 300 MG / Hydrocodone Alec trate 5 MG Oral Tablet HYDROcodone- Acetaminophen 5-300 MG Oral Tablet HYDROcodone-Acetaminophen 5-300 MG Oral Tablet 08/29/2019 12:00:00 AM EDT 1 {tbl} Oral aborted Take 1 tablet by mouth every 3 (three) hours as needed , Max Daily Dose: 8 tablets [facility] Diclofenac Sodium 75 MG Delayed Release Oral Tablet Diclofenac Sodium 75 MG Oral Tablet Delayed Release (VOLTAREN) Diclofenac Sodium 75 MG Oral Tablet Brynn yed Release (VOLTAREN) 08/27/2019 12:00:00 AM EDT 75 mg Oral active Take 1 tablet by mouth Two Times Daily [facility] Trazodone Hydrochloride 100 MG Oral Tabl et traZODone HCl 100 MG Oral Tablet (DESYREL) traZODone HCl 100 MG Oral Tablet (DESYREL) 08/27/2019 12:00: 00 AM EDT active 1 po hs X 2 days , then 2 po hs X 2 days, then 3 po hs [facility] Lorazepam 1 MG Oral Tablet [Ativan] Ativan 08/01/2019 12:00:00 AM EDT active [facility] ([facility]) Acetaminophen 325 MG / Hydrocodone Alec trate 5 MG Oral Tablet HYDROcodone- Acetaminophen 5-325 MG Oral Tablet (LORTAB) HYDROcodone-Acetaminophen 5-325 MG Oral Tablet (LORTAB) 07/23/2019 12:00:00 AM EDT 1 {tbl} Oral active Take 1 tablet by mouth every 6 (six) hours as needed for Pain for up to 3 days, Max Daily Dose: 4 tablets [facility] sennosides, JAIL 8.6 MG Oral Tablet Senna 8.6 MG Oral T ablet Senna 8.6 MG Oral Tablet 07/23/2019 12:00:00 AM EDT 2 {tbl} Oral active Take 2 tablets by mouth nightly [facility] sennosides, JAIL 8.6 MG Oral Tablet senna 8.6 MG 2 tablet sen na 8.6 MG 2 tablet 07/22/2019 10:00:00 PM EDT 2 {tbl} Oral active 2 tablet, Oral, Nightly, First dose on Sun07/22/19 at 2200, For 30 days [facility] Medication administered onsite ondansetron (ZOFRAN) injection 4 mg [id number] 07/22/2019 01:00:0 0 PM EDT 4 mg Intravenous active 4 mg, In travenous, Every 8 hours PRN, Nausea, Vomiting, Starting Sun07/22/19 at 1300, For 3 days [facility] Medication administered onsite topiramate 100 MG Oral Tablet topiramate (TOPAMAX) tab let 200 mg topiramate (TOPAMAX) tablet 200 mg 07/22/2019 09:00:00 AM EDT 200 mg Oral active 200 mg, Oral, 2 Times Daily, First dose (after last modification) on Sun07/22/19 at 0900, For 30 days [facility] Medication administered onsite buspirone hydrochloride 10 MG Oral Tablet busPIRone (B USPAR) tablet 10 mg busPIRone (BUSPAR) tablet 10 mg 07/22/2019 09:00:00 AM EDT 10 mg O ral active 10 mg, Oral, 2 Times Daily, First dose (after last modification) on Sun07/22/19 at 0900, For 30 days [facility] Medication administered onsite Fluoxetine 20 MG Oral Capsule fluoxetine (PROZAC) caps ule 40 mg fluoxetine (PROZAC) capsule 40 mg 07/22/2019 09:00:00 AM EDT 40 mg Oral active 40 mg, Oral, Daily Standard, First dose on Sun07/22/19 at 0900, For 30 days [facility] Medication administered onsite NaCl infusion 0.9 % [id number] 07/22/2019 08:45:00 AM EDT Intravenous completed at 75 mL/hr, Intrave nous, Continuous, Starting Sun07/22/19 at 0845, For 12 hours [facility] Medication administered onsite morphine (MSIR) tablet 15 mg 07/22/2019 08:37:25 AM EDT 15 mg Oral active [Order 1 Start] Name : morphine (MSIR) tablet 15 mg Signed Summary: 15 mg, Oral, Every 6 hours PRN, Moderate Pain (Pain Scale Score 4-6), Starting Sun07/22/19 at 0837, For 3 days [Order 1 End] [Order 2 Start] Name: morphine sulfate (PF) injection 2 mg Signed Summary: 2 mg, Intravenous, Every 6 hours PRN, Severe Pain (Pain Scale Score 7-10), Starting Sun07/22/19 at 0837, For 3 days [Order 2 End] [facility] Medication administered onsite Prochlorperazine 5 MG/ML Injectable Solu tion prochlorperazine (COMPAZINE) injection 10 mg prochlorperazine (COMPAZINE) injection 10 mg 0 05:43:49 AM EDT 10 mg Intravenous active 10 m g, Intravenous, Every 6 hours PRN, Nausea, Vomiting, Starting Sun07/22/19 at 0543, For 30 days [facility] Medication administered onsite ondansetron (ZOFRAN) injection 4 mg [id number] 07/22/2019 05:00:0 0 AM EDT 4 mg Given by IV completed 4 mg, Gi branden by IV, Once, Sun07/22/19 at 0500, For 1 dose [facility] Medication administered onsite Oxycodone Hydrochloride 5 MG Oral Tablet oxyCODONE (ROXICODONE) immediate release tablet 5 mg oxyCODONE (ROXICODONE) immediate release tablet 5 mg 07/22/2019 04:45:00 AM EDT 5 mg Oral completed 5 mg, Oral, Once, Sun07/22/19 at 0445, For 1 dose
Oxycodone immediate release is limited to 10 mg per dose. Higher doses ( only) require Pain Service consultation and approval.
[facility] Medication administered onsite morphine sulfate (PF) injection 4 mg [id number] 07/22/2019 12:00: 00 AM EDT 4 mg Intravenous completed 4 mg, In travenous, Once, Sun07/22/19 at 0000, For 1 dose [facility] Medication administered onsite diphenhydrAMINE (BENADRYL) injection 12.5 mg [id number] 07/21/2019 09:45:00 PM EDT 12.5 mg Intravenous completed 12 .5 mg, Intravenous, Once, Sun07/21/19 at 2145, For 1 dose [facility] Medication administered onsite morphine sulfate (PF) injection 4 mg 7065-2567-03 07/21/2019 09:45: 00 PM EDT 4 mg Intravenous completed 4 mg, In travenous, Once, Sun07/21/19 at 2145, For 1 dose [facility] Medication administered onsite 2 ML Metoclopramide 5 MG/ML Prefilled Sy ringe metoclopramide (REGLAN) injection 10 mg metoclopramide (REGLAN) injection 10 mg 07/21/2019 09:45:00 PM E DT 10 mg Intravenous completed 10 mg, I ntravenous, Once, Sun07/21/19 at 2145, For 1 dose [facility] Medication administered onsite Methocarbamol 500 MG Oral Tablet methocarbamol (ROBAXI N) tablet 500 mg methocarbamol (ROBAXIN) tablet 500 mg 04/08/2019 08:00:00 AM EST 50 0 mg Oral completed 500 mg, Oral, Once, e at 0800, For 1 dose [facility] Medication administered onsite morphine sulfate (PF) injection 4 mg [id number] 04/08/2019 06:15: 00 AM EST 4 mg Intravenous completed 4 mg, In travenous, Once, Sun04/08/19 at 0615, For 1 dose [facility] Medication administered onsite iohexol (OMNIPAQUE) 300 MG/ML contrast injection 100 mL [id number] 04/08/2019 05:45:00 AM EST 100 mL Given by IV completed 100 mL, Given by IV, 1 TIME IMAGING, Sun04/08/19 at 0545, For 1 dose [facility] Medication administered onsite diazePAM (VALIUM) injection 2.5 mg [id number] 04/08/2019 04:30:00 AM EST 2.5 mg Intravenous completed 2.5 mg, Intravenous, Once, 04/08/19 at 0430, For 1 dose [facility] Medication administered onsite fentaNYL (SUBLIMAZE) (PF) injection 50 mcg [id number] 04/08/2019 04:15:00 AM EST 50 ug Intravenous completed 50 mcg, Intravenous, Once, 04/08/19 at 0415, For 1 dose [facility] Medication administered onsite ondansetron (ZOFRAN) injection 4 mg [id number] 04/08/2019 04:15:0 0 AM EST 4 mg Given by IV completed 4 mg, Gi branden by IV, Once, 04/08/19 at 0415, For 1 dose [facility] Medication administered onsite Acetaminophen 325 MG / Hydrocodone Alec trate 5 MG Oral Tablet HYDROcodone- Acetaminophen 5-325 MG Oral Tablet (LORTAB) HYDROcodone-Acetaminophen 5-325 MG Oral Tablet (LORTAB) 04/08/2019 12:00:00 AM EST 1 {tbl} Oral active Tenderness of head and neck Take 1 tablet by mouth graciela ry 6 (six) hours as needed for Pain (acute) for up to 3 days, Max Daily Dose: 4 tablets [facility] Tenderness of head and neck Prazosin 1 MG Oral Capsule Prazosin HCL 03/13/2019 12:00:00 AM EST ORAL active [facility] ([facility]) sodium chloride 0.9 % bolus 1,000 mL [id number] 03/01/2019 03:30: 00 AM EST 1000 mL Intravenous completed 1,000 mL , Intravenous, Once, 03/01/19 at 0330, For 1 dose [facility] Medication administered onsite diphenhydrAMINE (BENADRYL) injection 25 mg [id number] 03/01/2019 02:45:00 AM EST 25 mg Intravenous completed 25 mg, Intravenous, Once, 03/01/19 at 0245, For 1 dose [facility] Medication administered onsite fentaNYL (SUBLIMAZE) (PF) injection 50 mcg [id number] 03/01/2019 02:45:00 AM EST 50 ug Intravenous completed 50 mcg, Intravenous, Once, 03/01/19 at 0245, For 1 dose [facility] Medication administered onsite 2 ML Metoclopramide 5 MG/ML Prefilled Sy ringe metoclopramide (REGLAN) injection 10 mg metoclopramide (REGLAN) injection 10 mg 03/01/2019 02:45:[address] 10 mg Intravenous completed 10 mg, I ntravenous, Once, 03/01/19 at 0245, For 1 dose [facility] Medication administered onsite sodium chloride 0.9 % bolus 1,000 mL [id number] 03/01/2019 01:30: 00 AM EST 1000 mL Intravenous completed 1,000 mL , Intravenous, Once, 03/01/19 at 0130, For 1 dose [facility] Medication administered onsite morphine sulfate (PF) injection 4 mg [id number] 03/01/2019 01:30: 00 AM EST 4 mg Intravenous completed 4 mg, In travenous, Once, 03/01/19 at 0130, For 1 dose [facility] Medication administered onsite Ondansetron 4 MG Disintegrating Oral Tab let Ondansetron 4 MG Oral Tablet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 mass. Reproductive: Unremarkable as visualized. ABDOMEN and PELVIS: Intraperitoneal space: There are multiple pelvic calcifications likely phleboliths. No free air. No significant fluid collection. [employer] shunt catheter is coiled within the pelvis. Some old tubing is noted in the right upper abdomen posterior to the liver. Bones/joints: No acute fracture. No dislocation. Soft tissues: Small fat-containing supraumbilical hernia. Vasculature: Unremarkable. No abdominal aortic aneurysm. Lymph nodes: Unremarkable. No enlarged lymph nodes. IMPRESSION: Fluid is noted throughout the small bowel and colon which is nonspecific and can be associated with enterocolitis/diarrhea disease. Intramural fatty deposition is seen in the anal rectal region, a nonspecific finding which can be seen in states of chronic inflammation such as inflammatory bowel disease. Correlate clinically. Automatic exposure control was used as a dose lowering technique. Contrast Type: isovue 300. Contrast Volume: 100cc REPORT SIGNATURE ON FILE 04/04/2020 (23:32 Eastern Time ) Signed by: Quinton Dowling M.D. Reported By Quinton Dowling MD on 04/04/202331 Signed By Quinton Dowling MD on 04/04/202331 Date Time CC: [facility]; Quinton Dowling MD Techn: [email or web address] Trans Dt/Tm: Trans by: DT Prt Dt/Tm: : Total DLP = 1000.00 mGy-cm : Total Radiation Dose = 15.0000 mSv Lifetime Dose: 17.6102 mSv Name Value Range Interpretation Code Description Data Shelbi rce(s) Supporting Document(s) ID Date Data Source [id number] 04/04/2020 11:21:00 PM EST [facility] [address] [id number] [phone] NAME SEX PT STATUS ACCOUNT NUMBER NIMA DIAZ [facility] ER [id number] ORDERING PHYSICIAN LOCATION MEDICAL RECORD NO. Santo Snyder MD ER [id number] ATTENDING PHYSICIAN DATE OF DATE OF EXAM/TIME [facility] 1990 [facility]202138 TYPE / EXAM CT Head without contrast REASON FOR EXAM URIAS. PMH pseudotumor cerebri Rx v-p shunt Clinical History/Indication for Exam: URIAS. PMH pseudotumor cerebri Rx v-p shunt CT BRAIN WITHOUT INTRAVENOUS CONTRAST INDICATION: URIAS. PMH pseudotumor cerebri Rx v-p shunt TECHNIQUE: Axial computed tomography images of the head/brain without intravenous contrast. Sagittal and coronal reformatted images were created and reviewed. This CT exam was performed using one or more of the following dose reduction techniques: automated exposure control, adjustment of the mA and/or kV according to patient size, and/or use of iterative reconstruction technique. COMPARISON: No relevant prior studies available. FINDINGS: Brain: No acute infarction. No acute hemorrhage. No mass- effect. Midline shift: None. Ventricles: See below. Bones/joints: Intact. No acute fracture. Soft tissues: Scalp is intact. Sinuses: Clear. Mastoid air cells: Clear. Orbits: Within normal limits. Tubes, lines and devices: Right frontal approach shunt catheter wi th slitlike ventricles which could be due to over shunting. IMPRESSION: Right frontal approach shunt catheter with slitlike ventricles which could be due to over shunting. Automatic exposure control was used as a dose lowering technique. REPORT SIGNATURE ON FILE 04/04/2020 (23:21 Eastern Time ) Signed by: Lester Chaves MD, PhD. Reported By Lester Chaves MD on 04/04/202320 Signed By Lester Chaves MD on 04/04/202320 Date Time CC: [facility]; Lester Chaves MD Techn: [email or web address] Gallardo Dt/Tm: Trans by: DT Prt Dt/Tm: : Total DLP = 842.00 mGy-cm : Total Radiation Dose = 2.6102 mSv Lifetime Dose: 17.6102 mSv Name Value Range Interpretation Code Description Data Shelbi rce(s) Supporting Document(s) ID Date Data Source [id number] 04/04/2020 11:21:[address] [facility] Special Instructions: Lab may order repe at test if initial test elevatedPhysician If elevated, reflex second test in 4-6 hrs Name Value Range Interpretation Code Description Data Shelbi rce(s) Supporting Document(s) Lactic w Rfx (if elevated) 1.1 mmol/L 0.5-2.0 N [facility] ID Date Data Source [id number] 04/09/2020 10:16:[address] [facility] Special Instructions: Lab may order repe at test if initial test elevatedPhysician If elevated, reflex second test in 4-6 hrs Name Value Range Interpretation Code Description Data Shelbi rce(s) Supporting Document(s) Bacteria identified in Blood by Culture [facility] NO GROWTH AFTER 5 DAYS ID Date Data Source [id number] 04/04/2020 10:51:[address] [facility] Name Value Range Interpretation Code Description Data Shelbi rce(s) Supporting Document(s) Amylase [Enzymatic activity/volume] in Serum or Plasma 38 U/L 30- 118 N [facility] ID Date Data Source [id number] 04/04/2020 10:51:[address] [facility] Value Range Interpretation Code Description Data Shelbi rce(s) Supporting Document(s) Lipase [Enzymatic activity/volume] in Serum or Plasma 186 U/L 73-3 93 N [facility] ID Date Data Source [id number] 04/04/2020 10:51:[address] [facility] Name Value Range Interpretation Code Description Data Shelbi rce(s) Supporting Document(s) Troponin I.cardiac [Mass/volume] in Serum or Plasma Less Than 0.015 0.00-0.09 [facility] Less than 0.09 NG/ML Negative0.10 - 0.77 NG/ML High Risk0.78 NG/ML or Greater PositiveThe WHO defined the cutoff (definition for diagnosis of IN)for this method as 0.78 ng/ml. ID Date Data Source [id number] 04/04/2020 10:19:[address] [facility] Name Value Range Interpretation Code Description Data Shelbi rce(s) Supporting Document(s) Leukocytes [#/volume] in Blood by Automated count 7.5 10*3/uL 4.45-10 .71 [facility] Erythrocytes [#/volume] in Blood by Automated count 4.31 10*6/uL 4.20 -5.40 [facility] Hemoglobin [Moles/volume] in Blood 13.2 g/dL 10.7-15.4 [facility] Hematocrit [Volume Fraction] of Blood by Automated count 41.1 % 3 7-47 N [facility] Erythrocyte mean corpuscular volume [Ent itic volume] in Cord blood by Automated count 95.4 fL 80-96 N [facility] ital Erythrocyte mean corpuscular hemoglobin [Entitic mass] by Automated count 30.6 pg 27-31 N [facility] l Erythrocyte mean corpuscular hemoglobin concentration [Mass/volume] in Cord blood 32.1 g/dL 33-37 Below low normal [facility] Erythrocyte distribution width [Entitic volume] by Automated count 13 % 11-15 N [facility] Platelets [#/volume] in Blood by Automated count 369 10*3/uL 130-472 N [facility] Platelet mean volume [Entitic volume] in Blood 9.0 fL 9.1-13. 1 Below low normal [facility] Neutrophils/100 leukocytes in Blood by Automated count 65.5 % 41- 77 N [facility] Neutrophils [#/volume] in Blood by Automated count 4.9 U 1.7-7.6 N [facility] Lymphocytes/100 leukocytes in Blood by Automated count 24.4 % 14- 46 N [facility] Lymphocytes [#/volume] in Blood by Automated count 1.8 U 0.6-4.6 N [facility] Monocytes/100 leukocytes in Blood by Automated count 7.8 % 4-12 N [facility] Monocytes [#/volume] in Blood by Automated count 0.6 U 0.2-1.2 N [facility] Eosinophils/100 leukocytes in Blood by Automated count 1.2 % 0-7 N [facility] Eosinophils [#/volume] in Blood by Automated count 0.1 U 0.0-0.5 N [facility] Basophils/100 leukocytes in Blood by Automated count 0.7 % 0.4-1 .3 N [facility] Basophils [#/volume] in Blood by Automated count 0.1 U 0.0-0.2 N [facility] NUCLEATED RED BLOOD CELL 0 % [facility] NUCLEATED RED BLOOD CELL# 0 U [facility] Immature granulocytes [Presence] in Blood by Automated count 0-2 N [facility] Immature granulocytes [#/volume] in Blood by Automated count 0.0 U 0-0.1 N [facility] Manual Differential panel - Blood NO [facility] ID Date Data Source [id number] 04/04/2020 10:41:[address] [facility] Name Value Range Interpretation Code Description Data Shelbi rce(s) Supporting Document(s) Urea nitrogen [Mass/volume] in Serum or Plasma 19 mg/dL 9-23 N [facility] Sodium [Moles/volume] in Serum or Plasma 141 mmol/L 132-146 N [facility] Potassium [Moles/volume] in Serum or Plasma 3.9 mmol/L 3.5-5.5 N [facility] Chloride [Moles/volume] in Serum or Plasma 110 mmol/L 99-109 Above high normal [facility] Carbon dioxide, total [Moles/volume] in Serum or Plasma 24 mmol/L 20 -31 N [facility] Anion gap in Serum or Plasma 11 mmol/L 8-16 N [facility] Glucose [Mass/volume] in Serum or Plasma 91 mg/dL 74-106 N [facility] Creatinine 0.7 mg/dL 0.5-1.1 [facility] Glomerular filtration rate/1.73 sq M.pre dicted [Volume Rate/Area] in Serum or Plasma Greater Than 60 ABOVE 60 [facility] Alanine aminotransferase [Enzymatic acti vity/volume] in Serum or Plasma by With P-5'-P 29 U/L 10-49 N [facility] Aspartate aminotransferase [Enzymatic ac tivity/volume] in Serum or Plasma by With P-5'-P 26 U/L 0-33 N [facility]ital Alkaline phosphatase [Enzymatic activity/volume] in Serum or Plasma 88 U/L 45-129 N [facility] Calcium [Mass/volume] in Serum or Plasma 8.4 mg/dL 8.5-10.1 Below low normal [facility] Bilirubin.total [Mass/volume] in Serum or Plasma 0.2 mg/dL 0.3-1.2 Below low normal [facility] Albumin [Mass/volume] in Serum or Plasma by Bromocresol purple (BCP) dye binding method 3.3 g/dL 3.2-4.8 N [facility] Protein [Mass/volume] in Serum or Plasma 7.0 g/dL 5.7-8.2 [facility] ID Date Data Source [id number] 04/04/2020 10:41:[address] [facility] @ DID THE CONTROL BAND APPEAR? Y@ DID TH E BACKGROUND CLEAR? Y Name Value Range Interpretation Code Description Data Shelbi rce(s) Supporting Document(s) Choriogonadotropin [Moles/volume] in Serum or Plasma NEGATIVE NEGAT ROGER [facility] @Reenter manual test result: NEG@by Ramona Duval at 04/04/202240. ID Date Data Source [id number] 04/06/2020 06:37:[address] [facility] Greater than 100,000 CFU/MLStaph spp, St rep spp, Corynebacterium sppNormal Commensal FloraProbable contaminants no senst done Name Value Range Interpretation Code Description Data Shelbi rce(s) Supporting Document(s) ID Date Data Source [id number] 04/04/2020 10:46:[address] [facility] @04/04/202241: UA W/ MICRO added. RFLXG = UMIC.Method of Collection:: Voided @04/04/202241: UA W/ MICRO added. RFLXG = UMIC.Method of Collection:: Voided Name Value Range Interpretation Code Description Data Shelbi rce(s) Supporting Document(s) Color of Urine [facility] Appearance of Urine CLEAR Abnormal (applies to non-nu meric results) [facility] pH of Urine by Test strip 5.0 5-8 [facility] Specific gravity of Urine by Refractometry 1.044 1.005 -1.030 Abnormal (applies to non-numeric results) [facility] Leukocyte esterase [Presence] in Urine by Test strip NEGATIVE Above high normal [facility] @DO MICRO!!!! Nitrite [Presence] in Urine by Test strip NEGATIVE [facility] Protein [Presence] in Urine by Test strip NEGATIVE [facility] Glucose [Mass/volume] in Urine by Automated test strip NEGATIVE NEG ATIVE [facility] Ketones [Presence] in Urine by Test strip NEGATIVE [facility] Urobilinogen [Presence] in Urine 0.2-1 EU/dl [facility] Bilirubin.total [Presence] in Urine by Automated test strip NEGATIVE [facility] Erythrocytes [#/volume] in Urine by Test strip TRACE NEGATIV E Above high normal [facility] @DO MICRO!!!! URINE MICROSCOPIC ADDED Microscopic Added [facility] ID Date Data Source [id number] 04/04/2020 10:46:00 PM EST [facility] @04/04/20 2242: UA W/ MICRO added. RFLXG = UMIC.Method of Collection:: Voided @04/04/20 2242: UA W/ MICRO added. RFLXG = UMIC.Method of Collection:: Voided Name Value Range Interpretation Code Description Data Shelbi rce(s) Supporting Document(s) Erythrocytes [#/volume] in Urine by Manual count 1-2 /hpf 0-5 [facility] Leukocytes [#/volume] in Urine by Manual count OCCASIONAL 0-5 [facility] Cells [Type] in Urine sediment by Light microscopy [facility] Crystals [type] in Urine sediment by Light microscopy [facility] ID Date Data Source [id number] 04/04/2020 09:43:[address] [facility] ED Physician Documentation NAME: JOENIMA Eamon : 1990 AGE: 29 MR#: [id number] SERVICE DATE: 04/04/[address]: Santo Snyder MD PRIMARY CARE DR: [facility] ROOM#: HPI (Adult, General) General Chief Complaint: GI Stated Complaint: ABDOMINAL PAIN, BLOOD IN URINE Time Seen by Provider: 04/04/20 21:24 History of Present Illness Narrative: 9:20PM: C : Abd pain X 3 days. Patient a 29-year-old female 14 para 0. 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 LMP 03/2020 shorter than usual. LNMP 02/2020. Patient states 04/01/2020 she developed insidious onset of pain left side of abdomen. As the days followed abdominal pain constant, waxes and wanes in intensity, never goes away, and has become generalized. Abdominal pain intermittently interferes with sleep at night. 04/03/2020 patient developed vomiting and fever. On 04/03/2020 patient vomited 9X. Today patient vomited 5X. Temp max 102.4 degrees (04/03/2020)(oral). Patient states she took Tylenol but vomited the med. Patient states that she took oxycodone which is prescribed for her pseudotumor cerebri but she vomited the med. drove patient to ED. Allergies/Home Meds Allergies Allergy/AdvReac Type Severity Reaction Status Date / Time acetazolamide Allergy Hives Verified 04/04/20 21:11 [From Diamox Sequels] Sulfa (Sulfonamide Allergy Verified 04/04/20 21:11 Antibiotics) Home Medications Medication Instructions Recorded Confirmed Last Taken Type fluoxetine [Prozac] 40 mg PO DAILY 02/23/17 04/04/20 04/04/20 History metformin 850 mg PO BID 02/23/17 04/04/20 04/04/20 History buspirone 10 mg PO BID 10/24/17 04/04/20 04/04/20 History ascorbic acid (vitamin C) [Vitamin 500 mg PO BID 12/15/18 04/04/20 04/04/20 History C] ferrous sulfate 325 mg PO BID 12/15/18 04/04/20 04/04/20 History acetaminophen 975 mg PO Q6HR 04/04/20 04/04/20 04/04/20 18:00 History furosemide 20 mg PO DAILY 04/04/20 04/04/20 04/04/20 History hyoscyamine sulfate 0.125 mg PO Q4HR 04/04/20 04/04/20 04/04/20 History ondansetron 8 mg PO PRN PRN 04/04/20 04/04/20 04/04/20 History oxycodone [OxyContin] 10 mg PO Q4HR 04/04/20 04/04/20 04/04/20 10:30 History topiramate [Topamax] 200 mg PO BID 04/04/20 04/04/20 04/04/20 History PMH (from Triage) Patient Medical History PMH Reviewed/Updated as Needed: Yes PMH/PSH from Triage: Medical History (Updated 12/15/18 @ 15:55 by Chrissie Nguyen) C. difficile colitis (Medical) A04.72 History of PCOS (Medical) Z87.42 Surgical History (Updated 04/04/20 @ 21:11 by Catina Ladd) Hx of appendectomy (Surgical) Z90.49 Hx of cholecystectomy (Surgical) Z90.49 Hx of ventricular shunt (Surgical) states she had a left one that was removed last year. states right is still in place Female History LMP:: 1 week ago : No Hx Drug Resistant Infections Hx MRSA: (Methicillin-resistant Staphylococcus aureus): No Hx VRE (Vancomycin-resistant enterococci): No Hx C.Diff: No Hx CRKP: Yes Hx Other Resistant Infection?: No Isolation: Contact Hx Recent Travel Out of the country within 10 days (where): No Hx Fever: No Hx Fever with a rash?: No Social History Does patient have suicidal/homicidal thoughts or ideation?: No Are you in a relationship with/Does anyone hit you, yell/swear at you, steal from you?: No Substance Use Hx Alcohol Use: Yes Hx Substance Use: No Hx Substance Use Treatment: No Second Hand Smoke Exposure: No Smoking Status: Never smoker Tobacco Use Hx Chewing Tobacco Use: No Vaccination History Hx/Date of Tetanus, Diphtheria Vaccination: Yes Hx/Date of Influenza Vaccination: No Hx/Date of Pneumococcal Vaccination: No Immunizations Up to Date: Yes PFSH Medical History C. difficile colitis History of PCOS Surgical History (Updated 04/04/20 @ 21:11 by Catina Ladd) Hx of appendectomy Hx of cholecystectomy Hx of ventricular shunt Family History (Updated 12/18/18 @ 11:42 by Sommer Ocasio) Father No problems noted. Mother Gallbladder disease Social History (Updated 12/18/18 @ 11:43 by Sommer Ocasio) Does the Patient have a Healthcare Proxy: No Does Patient have a DNR?: No Does Patient have a Living Will?: No marital status: current occupational status: unemployed Hx Recent Travel (where): No Smoking Status: Never smoker alcohol intake: never ROS Review of Systems Constitutional: Reports fever, chills and malaise; Denies sweats and weakness Eyes: Denies vision change, eye discharge/drng, redness and eye pain ENT: Denies ear pain, hearing loss, tinnitis, ear discharge, nasal pain, nasal discharge, nasal congestion, post nasal drip, epistaxis and throat pain Respiratory: Denies cough and SOB Cardiovascular: Denies chest pain, orthopnea, hypertension, paroxysmal noc dyspnea, edema, light headedness, dyspnea on exertion and syncope Gastrointestinal: Reports nausea, vomiting, abdominal pain and other (+ alternating loose and hard stools.); Denies black tarry stools and hematochezia Genitourinary-Female: Reports hematuria and other (+ vag bleeding.); Denies dysuria and frequency Musculoskeletal: Reports neck pain and back pain; Denies shoulder pain, arm pain, leg pain, muscle weakness, joint swelling, muscle pain and joint pain Neurologic: Reports headache; Denies weakness, numbness, incoordination, change in speech, confusion, dizziness, vertigo, lightheadedness, loss of consciousness, abnormal gait and paresthesias Psychiatric: Reports anxiety Endocrine: Denies Polydipsia and Polyuria Physical Exam General General appearance: other (Obese anxious white female c/o abd pain>>URIAS. No pallor, cyanosis, icterus, or diaphoresis. Alert. Oriented x3.) Head Head exam: Present atraumatic and normocephalic Eye Eye exam: Present PERRL and EOMI; Absent scleral icterus and conjunctival injection ENT ENT exam: Present normal orophraynx and TM's normal bilaterally Neck Neck exam: Present supple; Absent tenderness, meningismus, lymphadenopathy and thyromegaly Respiratory Respiratory exam: Present normal lung sounds bilaterally; Absent respiratory distress, wheezes, rales and rhonchi Cardiovascular Cardiovascular Exam: Present regular rate, tachycardia, no murmur and other (Reg AHR @ 120/min.); Absent rubs, gallop and JVD GI/Abdominal GI/Abdominal exam: Present Abd soft, bowel sounds present all quadrents and other (Obese. Old scars noted. Degree of obesity makes abdominal exam difficult but there is moderate generalized tenderness mostly left side of the abdomen. I do not feel liver, spleen, or mass.); Absent rebound Extremities Exam Extremities exam: Absent tenderness and pedal edema Back Exam Back exam: Absent CVA tenderness (R), CVA tenderness (L), paraspinal tenderness and vertebral tenderness Neurological Exam Neurological exam: Present alert, orien pravin X3, normal gait and other (Patient carries conversation with good articulation and normal thought processing and content. No facial motor paresis. Tongue midline. (Continued)) Vital Signs Vital Signs: Vital Signs 04/04/20 20:40 04/04/20 23:24 Temperature 98.3 F Pulse Rate 128 H Respiratory Rate 18 18 Blood Pressure 130/77 O2 Sat by Pulse Oximetry 94 L 98 MDM (comprehensive) Lab Data Labs: 04/04/20 22:10 04/04/20 22:10 Laboratory Results Last 24 hours 04/04/20 22:05: Urine Color Yellow, Urine Appearance Cloudy A, Urine pH 5.0, Ur Specific [place] 1.044 A, Urine Protein Trace, Urine Ketones Negative, Urine Blood Trace H, Urine Nitrite Negative, Urine Bilirubin Negative, Urine Urobilinogen 1 eu/dl, Ur Leukocyte Esterase Trace H, Urine RBC 1-2, Urine WBC Occasional, Ur Squamous Epith Cells Few, Calcium Oxalate Crystal Many, Micro UA Comment Microscopic added, Urine Glucose Negative 04/04/20 22:10: WBC 7.5, RBC 4.31, Hgb 13.2, Hct 41.1, MCV 95.4, MCH 30.6, MCHC 32.1 L, RDW 13, Plt Count 369, MPV 9.0 L, Immature Gran % (Auto) 0.4, Neut % (Auto) 65.5, Lymph % (Auto) 24.4, Love % (Auto) 7.8, Eos % (Auto) 1.2, Baso % (Auto) 0.7, Lymph # (Auto) 1.8, Abs Immat Gran (auto) 0.0, Add Manual Diff No, Absolute Neutrophils 4.9, Monocytes # 0.6, Absolute Eosinophils 0.1, Absolute Basophils 0.1 04/04/20 22:10: Sodium 141, Potassium 3.9, Chloride 110 H, Carbon Dioxide 24, Anion Gap 11, BUN 19, Creatinine 0.7, GFR Calculation Greater than 60, Glucose 91, Calcium 8.4 L, Total Bilirubin 0.2 L, AST 26, ALT 29, Alkaline Phosphatase 88, Serum Total Protein 7.0, Albumin 3.3 04/04/20 22:10: Lactic Acid 1.1 04/04/20 22:10: Serum , Qual Negative 04/04/20 22:10: Troponin I Less than 0.015 04/04/20 22:10: Amylase 38, Lipase 186 Medical Decision Making Free Text/Narative:: (Continuation of physical examination) No nystagmus or diplopia. Pkwxga-tg-uwsd, ajsg-ba-pxxi normal. Motor: Power all 4 extremities +5/5. No arm drift. Pronator negative. No leg drift. Sensory: Light touch sensation all 4 extremities WNL. DTRs: Biceps +1/4 bilaterally. Triceps absent bilaterally. Patellar +2/4 bilaterally. Babinski's negative bilaterally. 9:50 PM: Initial ED management consisted of IV normal saline. Phenergan 12.5 mg IM. Morphine 4 mg IV. Tests. 12:05 AM: EKG: Sinus tachycardia. CTnI<0.015. Serum hCG is negative. CMP WNL except chloride 110, calcium 8.4. WBC 7500. Hemoglobin 13.2. Amylase 38 which is normal. Lipase 186 which is normal. Urinalysis: Cloudy yellow; blood trace; protein trace; ketones negative; nitrate negative; leukocyte esterase trace. Cranial CT (radiologist): Right frontal approach shunt catheter with slitlike ventricles which could be due to over shunting. CT abdomen and pelvis with IV contrast (radiologist): Fluid is noted throughout the small bowel and colon which is nonspecific and can be associated with enterocolitis/diarrhea disease. Intramural fatty deposition is seen in the anal rectal region, a nonspecific finding which can be seen in states of chronic inflammation such as inflammatory bowel disease. Presently, patient states she feels better. Abdominal pain has improved; she still has abdominal pain, but less intense than earlier in course. No nausea or headache. In my presence patient drank 4 ounces of cool water without subsequent vomiting or abdominal pain. Reexam of abdomen: Mild tenderness left side of abdomen. No rebound tenderness. I do not feel liver, spleen, or mass. My working diagnosis: Abdominal pain. Rx: Above notes, further options including hospital admission or possible transfer to facility with neurosurgeon and surgical services such as [facility], risks, benefits, alternatives discussed with patient. Abd pain diff dx includes nonspecific/viral gastroenteritis, new onset inflammatory bowel disease. Pt states she does not want to be transferred to [facility]. Patient states she wants to go home and follow-up with her PMD @ [place]. I offered to refer patient to our Surgical Clinic for further evaluation of the abdominal pain pt is agreeable with that. She states she wants to go home now. She states she she does not think transfer to higher level of care or hospital admission is necessary at this time. Patient states she wants to go home now. Plan Visit Medications Administered ED medications:: Medications Ge neric Name Dose Route Start Last Admin Trade Name Freq PRN Reason Stop Dose Admin Sodium Chloride 1,000 mls @ 500 mls/hr 04/04/20 21:42 04/04/20 23:23 Ns 0.9% IV 500 mls/hr .Q2H CHRISTELLE Administration Discontinued Medications Generic Name Dose Route Start Last Admin Trade Name Freq PRN Reason Stop Dose Admin Morphine Sulfate 4 mg 04/04/20 21:42 04/04/20 23:24 Morphine Sulfate 4 Mg/Ml Sdv IVP 04/04/20 21:43 4 mg 1T ONE Administration Promethazine HCl 12.5 mg 04/04/20 21:42 04/04/20 23:23 Promethazine Hcl 25 Mg/Ml Sdv IM 04/04/20 21:43 12.5 mg 1T ONE Administration Discharge Plan Admission/Discharge Dx Primary DC Diagnosis: Abdominal pain ED Provider: Maya Snyder ED Status: Ready for Discharge Time Seen by Provider: 04/04/20 21:24 Triaged At: 04/04/20 20:40 Discharge Detail Disposition: Home, Self-Care Med Rec New Prescriptions: No Action fluoxetine [Prozac] 40 MG capsule 40 mg PO DAILY RF: 0 metformin 850 MG tablet 850 mg PO BID RF: 0 buspirone 10 MG tablet 10 mg PO BID RF: 0 ascorbic acid (vitamin C) [Vitamin C] 500 mg tablet 500 mg PO BID RF: 0 ferrous sulfate 325 mg (65 mg iron) tablet 325 mg PO BID RF: 0 acetaminophen 325 mg tablet 975 mg PO Q6HR RF: 0 hyoscyamine sulfate 0.125 mg tablet, sublingual 0.125 mg PO Q4HR RF: 0 topiramate [Topamax] 200 mg tablet 200 mg PO BID RF: 0 furosemide 20 mg tablet 20 mg PO DAILY RF: 0 ondansetron 4 mg tablet,disintegrating 8 mg PO PRN PRN (Reason: Nausea) RF: 0 oxycodone [OxyContin] 10 mg tablet,oral only,ext.rel.12 hr 10 mg PO Q4HR RF: 0 Follow Up Care/Instructions Diet/Activity/Wound Care..: Rest. Diet: Leslie foods, such as toast, crackers, dry cereal, clear liquids in small frequent amounts. Follow-up [facility] 04/05/20; call 9:00 AM for appointment to see Surgeon today. Also, call your Primary Care Doctor at [place] today for an appointment to follow-up with your Primary Care Doctor tomorrow. If any new or worsening interim symptom occurs return to ED immediately. *Discharge Patient* Discharge Orders: Discharge Order (Routine); Ordered 04/05/20 Ordered By: Maya Snyder Report Signers: <Electronically signed by Maya Snyder MD> Maya Snyder MD 04/05/20 0021 Maya Snyder MD SIGNATURE DA Report Cosigners: D: RICARDO 04/04/202142 T: RICARDO 04/04/202142 CC: [facility] Name Value Range Interpretation Code Description Data Shelbi rce(s) Supporting Document(s) ID Date Data Source [id number] 02/17/2020 07:41:00 AM [facility] Name Value Range Interpretation Code Description Data Shelbi rce(s) Supporting Document(s) HCG URINE QUAL NEGATIVE NORMAL: NEGATIVE [facility] HCG URINE QL REENTER NEGATIVE NORMAL: NEGATIVE [facility] { KIT LOT # [id number] ){ KIT EXP DATE 12.08.20 ){ PROCEDURAL CONTROL VALID ) ID Date Data Source [id number] 02/12/2020 10:25:00 AM [facility] Name Value Range Interpretation Code Description Data Shelbi rce(s) Supporting Document(s) SARS coronavirus 2 RNA [facility] This lab was ordered by [facility] and reported by [facility]. ID Date Data Source [id number] 02/09/2020 10:21:00 PM EST [facility] Patient: NIMA DIAZ Observation Re port - [facility].VisitID: [id number] [place] [address] [phone], FRegistration Date/Time: 02/09/2020 17:49 Weight:105.6 kg (S). Height/Length:62 inches (S). BMI:42.6 PAST HISTORYProblems:Abdominal Pain [Chronic].GI Disease [Chronic].Polycystic ovarian syndrome [Chronic].Pseudotumor cerebri [Chronic].Intercranial hypertension [Chronic].Neurological Disease [Chronic].Depression [Chronic].Pituitary mass [Chronic].Head Injury.Chronic Headache.Contusion.Chest Injury.Diarrhea.Hydrocephalus.Viral Disease.Sick Contact.Nausea.Neck Pain.Migraine Headache.Headache.Headache [Intermittent].Cellulitis [Resolved].Diarrhea [Resolved].Skin Rash [Resolved].Wound Dehiscence [Resolved].C. Difficile Colitis [Resolved].MANUAL EQUIPMENT MECHANIC Shunt Complication [RuleOut]. Additional Surgeries:Abdominal surgery to release gas S/P shunt repair.Appendectomy.Cholecystectomy.Kidney stone removal.LP shunt.Lypoma removed from back .Tonsillectomy.MANUAL EQUIPMENT MECHANIC Shunt. (Right revised april 2018Left placed June 2018). Medications:Ascorbic Acid Oral (Tablet 500 mg) 1 tablet, 2x a day, last dose this am .Baclofen 10mg, 3x a day as needed, last dose yesterday.Ferrous Sulfate Oral (Tablet 325 (65 Fe) mg) 1 tablet, 2x a day, last dose this am .Hyoscyamine Sulfate Oral (Tablet 0.125 mg) 1 tablet, 4x a day, last dose today.MetFORMIN HCl Oral 850 mg, 2x a day every AM, last dose today.oxyCODONE HCl Oral 10 mg, as needed, last dose last night.PROzac Oral (Capsule 40 mg) 1 capsule, daily, last dose this am.Topiramate Oral 200 mg, 2x a day, last dose today.Tylenol 975mg, as needed, last dose this am.Zofran ODT Oral 8mg, as needed, last dose 1400. Allergies:Acetazolamide.enoxaparin.(hives)Sulfa (Sulfonamide Antibiotics). SevereTape.(rash). FAMILY HISTORYNo significant family medical history. (Electronically signed by Amol Kennedy PReuben 02/09/2020 22:20) Name Value Range Interpretation Code Description Data Shelbi ingram(s) Supporting Document(s) ID Date Data Source [id number] 02/09/2020 07:01:00 PM EST [facility] TSYSORDER [id number] Name Value Range Interpretation Code Description Data Shelbi eamon(s) Supporting Document(s) C REACTIVE PROTEIN 10.7 mg/L 0.0-3.0 [facility] ID Date Data Source [id number] 02/09/2020 07:01:00 PM [facility] TSYSORDER [id number] Name Value Range Interpretation Code Description Data Shelbi rce(s) Supporting Document(s) GLUCOSE 91 mg/dL 74-106 [facility] BLOOD UREA NITROGEN 7 mg/dL 7-18 [facility] ital CREATININE 0.7 mg/dL 0.6-1.0 [facility] SODIUM 139 mmol/L 136-145 [facility] POTASSIUM 3.8 mmol/L 3.5-5.1 [facility] CHLORIDE 104 mmol/L 98-107 [facility] CO2 24 mmol/L 21-32 [facility] CALCIUM 8.8 mg/dL 8.5-10.1 [facility] ANION GAP 11.0 mmol/L 5-12 [facility] GLOMERULAR FILTRATION RATE >90 mL/min [facility] GFR IS CALCULATED IN mL/min/1.73m2 JESICA L FUNCTION: >90MILDLY DECREASED: 60-89MILDY TO MODERATELY DECREASED: 45-59 MODERATELY TO SEVERELY DECREASED: 30-44SEVERELY DECREASED: 15-29RENAL FAILURE: <15 AST 14 U/L 15-37 [facility] ALT 22 U/L 12-78 [facility] ALKALINE PHOSPHATASE 84 U/L 46-116 [facility] pital TOTAL BILIRUBIN 0.1 mg/dL 0.2-1.[address] [facility] TOTAL PROTEIN 7.7 g/dl 6.4-8.2 [facility] ALBUMIN 3.7 gm/dL 3.4-5.0 [facility] ID Date Data Source [id number] 02/09/2020 06:43:00 PM [facility] TSYSORDER [id number] Name Value Range Interpretation Code Description Data Shelbi rce(s) Supporting Document(s) WHITE BLOOD COUNT 7.3 K/mm3 4.0-10.0 [facility] RED BLOOD COUNT 4.80 M/mm3 4.00-5.50 [facility] HEMOGLOBIN 14.4 gm/dL 12.0-16.0 [facility] HEMATOCRIT 43.9 % 36.0-48.8 [facility] MEAN CELL VOLUME 91.5 fl 80-96 [facility] MEAN CORPUSCULAR HEMOGLOBIN 30.0 pg 27.0-31.0 [facility] MEAN CORPUSCULAR HGB CONC 32.8 g/dl 32.0-36.0 [facility] RED CELL DISTRIBUTION WIDTH 12.4 % 10.0-14.5 [facility] PLATELET COUNT 369 K/mm3 172-450 [facility] MEAN PLATELET VOLUME 9.3 fl 9.0-13.0 [facility] GRAN % 65.7 % 50-80.0 [facility] IG% 0.3 % 0.0-0.[address] [facility] LYMPH % 25.9 % 25.0-50.0 [facility] MONO % 6.9 % 2.0-10.0 [facility] EOS % 0.8 % 0-5.0 [facility] BASO % 0.4 % 0.0-2.0 [facility] GRAN # 4.8 K/mm3 2.0-8.00 [facility] IG# 0.0 K/mm3 0.0-0.2 [facility] LYMPH # 1.9 K/mm3 1.0-5.0 [facility] MONO # 0.5 K/mm3 0.10-1.20 [facility] EOS # 0.1 K/mm3 0.0-0.5 [facility] BASO # 0.0 K/mm3 0.0-0.2 [facility] ID Date Data Source [id number] 02/09/2020 06:14:00 PM [facility] ital TSYSORDER [id number] Name Value Range Interpretation Code Description Data Shelbi rce(s) Supporting Document(s) URINE COLOR. [facility] URINE APPEARANCE CLEAR [facility] l URINE GLUCOSE (UA) NEGATIVE mg/dL NEGATIVE [facility] URINE BILIRUBIN NEGATIVE NEGATIVE [facility] URINE KETONE NEGATIVE mg/dL NEGATIVE [facility] SPECIFIC GRAVITY,URINE 1.020 1.001-1.035 [facility] URINE BLOOD NEGATIVE NEGATIVE [facility] PH,URINE 8.5 5.0-9.0 [facility] URINE PROTEIN NEGATIVE mg/dL NEGATIVE [facility] URINE UROBILINOGEN NORMAL(0.2-1) mg/dL 0-1 [facility] URINE NITRATE NEGATIVE NEGATIVE [facility] URINE LEUKOCYTE ESTERASE NEGATIVE NEGATIVE [facility] ID Date Data Source [id number] 02/09/2020 04:25:00 PM EST [facility] Patient: JOE, NIMA E Observation Re port - [facility].VisitID: [id number] [place] [address] [phone], FRegistration Date/Time: 02/06/2020 23:00 Weight:105.6 kg (S). Height/Length:62 inches (S). BMI:42.6 FAMILY HISTORYNo significant family medical history. (Electronically signed by Hazel Rizo M.D. 02/06/2020 23:41) Addenda for NIMA DIAZ VisitID: [id number] Date: 02/06/2020 02/09/2020 16:23LWBS/LWBT/AMA??? follow-up Spoke with pt via telephone regarding AMA on 02/06/2020. Pt reports that she is still not feeling well. Pt c/o low grade fever. Encouraged pt to return to the ER [facility] and pt agrees to return. Pt expressed that she had a negative experience with the provider at the last visit and was nervous to return. Pt encouraged to return and agreed.(Electronically signed by Maggie Lancaster R.N. - 02/09/2020 16:23) Name Value Range Interpretation Code Description Data Shelbi rce(s) Supporting Document(s) ID Date Data Source [id number] 02/06/2020 11:59:00 PM EST [facility] Patient: NIMA DIAZ Observation Re port - [facility].VisitID: [id number] [place] [address] [phone], FRegistration Date/Time: 02/06/2020 23:00 Weight:105.6 kg (S). Height/Length:62 inches (S). BMI:42.6 FAMILY HISTORYNo significant family medical history. (Electronically signed by Hazel Rizo M.D. 02/06/2020 23:41) Name Value Range Interpretation Code Description Data Shelbi rce(s) Supporting Document(s) ID Date Data Source [id number] 01/21/2020 12:00:00 AM EST [facility] Name Value Range Interpretation Code Description Data Shelbi rce(s) Supporting Document(s) SARS coronavirus 2 RNA [Presence] in Res piratory specimen by MARISEL with probe detection [facility] This lab was ordered by Collette Mendez and reported by [facility]. ID Date Data Source [id number] 12/25/2019 02:57:38 PM EDT [facility] Name Value Range Interpretation Code Description Data Shelbi rce(s) Supporting Document(s) Consultation [facility] XTTAPc2pWbABVyGq11/BIMfdAJGir5PkAXpyZIr0FAvtFNItE9QtKHL3cD1cRAT9UWaLTzKqCaAcJMEp lbm UnGysQQwKtQPVtIpfEZiRzDTgkRljahNNeHL0MyKR7HMNhQ85lVIWjUPAoE8DvXBBmZZF+Rl8ZYKIkhP HhVJ3DBanJ9G9fd2iOWx3cuP/QPmNv1yRupzBiWVh8WNcFTo9l873POnjBxRlGX7c0JGcD//vysZQ00/ FeUlBw4xRfO+uLSvs6l6FU4GcR9s+/fF2VPS1rsi/L D3ZKwdh10cz/gvH9Da4uvW2hv8nB5deqeAbi/NVz//lSdeBn63yNQPObcK3U12Kx+aIc8cZpZBy2NUrL 3uhMnQ1ngDtZD3tIfx5UA5gPBgpebiyPCS1LZuCvqpYI2qd3m8u1Li1EaLUdxsj0V+AsBfXdQayG2EhI eB8ROeRbjsy9Pl+SNnktt22gTSSd04Cdw6CKTyu6eA u/nP6nQeN9ofSZt1JgYyTcYVcjdL3LnqIeD/1hkei5TA+y+/wjzf2Idwouj1cIPQUvkIuq+R3btUT3bC GxDRfBs0tHkGK5B+2oo59Y50RwVuK8as2ZF5fD1q0kO+8RkJEukA7o+1LaJDPZVxCMkpeO6rADI/aEUa tPAY6g0GYJfDe0G3lLu69EGNZMpaznOMvjwE3cEdM3 dHmUnMJuVcZdTUNV7GdOPnbKyhyrw9Rsa3S25m5oz4I+Qtfv5MI4liBcV72zXwtuX7nDIKKMMext+BARB [file] OPA4HCTcGOY3JuM1K9LfPD5wRJPZPg0+GXuloKLbdMngSSFODfR4SxHkRMdbFQWVOt7W ID Date Data Source [id number] 12/09/2019 01:28:40 PM EDT [facility] Name Value Range Interpretation Code Description Data Shelbi rce(s) Supporting Document(s) ED Provider Note [facility] LSGLTr1qJhKCGnFk27/WDLqrXESft7LmJBmkRFf8MBotURQbN1DfIRR3iG2gCDK5QBiFTxVwVyKfKDC5 lbm [file] +gyC3de1IKjNK7E5SH+Fire Crew Specialist+mlgB5hvbY3dtbvVevUxlsWSqQOmWo2OgHm3vst6LBrfJFvojuXwIgcF25X [file] znRMIBREZvdXHwGPZUh1AfunAsqRDPKJUmlNOiDTsk MPJlxpUhXENQJmUsnBQdIW9zXlIySpXkFGW3GtRbVY7cWUmgXR4BLXM5FPduEigqRNXRPF5ZHGecWKK4 CEzgcsCcbIUxDWtrVU9SEZXyfnUtBHynENTXZYsoYC4GobR5ELZzFPVoGd6EQz2FDnNnJE6fcb8JPWLo TQAdJkeHAef0OMbeUY8JmMJiI4HkiPLcr4yNCoAnU3 CFFVF7RDUbQa3QMHOyHhNmLSYqRAqvFL5eDKMtEYYXgBtqgyJ9OD8EVQ3wsqMnXO8RKkGiPc3qGr5PAf UoO3PnF7MiCLGaOJEYTYieNL5TRZwyZX7pWF6Dr6TOkBWszN8rwz1TXWGaQHCvKqjzje4OLfzwE5G1vH ihVNHzLLhxVMPROOojCN1CYZAxWUQ3MTB0UfVqRJXW AhQhB98aUR1KN5Fqt73vIwP1ILFdNxMrZSvzKH59hFycwcUkpHZmlOnnCX6AHk2+DQplbmRvYmoNCnhy AWNLDlMjSCUWGfPwARMrGNAcCVNrFkS3FnIbWg0HHXOeIRJiBBXpFhHvCWEpHVDjZLamIZAaOOGkGQQ2 MRQyQSBxCF4NBnStPPDqEFI3POcnQYZsKRGbmq0GHQ EuZNMqPRZ9QvEeBHVkEUHtHYwpDWWjSDDbHkZ0MSSjIALsVT6PJcRtCKHzTNR7LmTeBUDrDCVfxa1REU QdOYFuKzG1LqJyPQHjOOJdDCegSVAiTHT0RHVxQYUuJPEcMP2TGwKyHSPkFWy2YHQgUDLgRGToml4TFP YfSBUdROvdTiRvXLBjUQNoMBrqVKAtHTAsAMr9YIHw ONEiGI0PRbPcPZGsDDRoLNYnVYQtVSCxed9DJMVpCRAnPXP3SWHwHLYdYFOeFIuqZVSjUDR2PTRqFQOx VJHqWM0HNjAzYOEtLTpbZJydNWNmZIQjad9QZPPtYLXoAsTpDBNyVUHfTJYxTTefSEMoKPYoRdY7QKHm KUPgVR8TTwXmEOOnLsV5UGOuNMCkBHWcqu2GTGBrDA YpSXI7DeSlMQSfOZFhDQlmDJDaIEM2VrB7IYOfBJLqKD8SOvTbASDlBuK6FjXaGFMtJMDvwf2BQMVmRJ UbCnzcRTRsIRTjAVViQTjfFFPbTQQxSQG9OAQrNYCuPP8TVdWoZSJpAzMqZrVjJWJzAELriy5ORDBxPH NsPbBiMeGeSNEwONNaGOazZNWuXQWmKYR2FTSqUOBi SO0PGmSgQPDmVjX2EVRnVXAiTPLofl6TYXKvWVNaUOA1WTXbCIWkLNCwFXzkKGYwIIW5WIW5ZCWtRGPj DV8UOfSwJYWnZoZwBPLrGSBeANXrof4XELZfOODkBnMgUKLoVPTrQLGpCPewQQLiHYS5DZy5RYVwDLGe IN5RXnYvHMTfYfu9DWmtDUZcMLObxd8WJEQhTJFrGf m7WoOyPZOxAXYdNLsiJJXqWNO3XXN9RWCqQKLmAB0GMmQuEROaSrwwFQGwANAfFKPmuy6EDKKkBOOeYY XdToCzPOOfPWUiEHzyJOErMQLlZfYcAGSjJFVbAR7HHpMbMDBpJQC0GcGaGPRfAUAxwh8CRANwLDU2QD VeETQrQFDkXQAgORlbWRDaJUBwJdq5UKGrFJRyOX5Z HcXfQTKgOPN3RaIsZBDtGJTqde5NMHWhKJG0OjM6DVUdXWFjYCZbFGtqNSOrOYYyQxT6CISkNLIlFF8A YpOvAYZePPD4MbVlKJXdDJWrvo0CCUKpAVX1CjS8PkStBTRlLOZzCSobPJVwQAU0HbwrLVGeTBKkCC9N GhWhXJGlZIF2SOKtOFGtOZCygm2FQXXxPXE0XYXbYM FiNLRzMPOuWPrzYRFwWRE7KjN5YZJbECUnAZ4YRgMcQQXmJGMcXFgkPHTmKKVctg3VYDYcBEI6LQI9Os VrVZMlVJYsXPk1oiCrqUDoMBj1IX0QD8ZrnyJbHVSBUn2Nc467KMJzDRRnGo6MP9urEx1tVYXyYDLIHz 0LTBi6AXFjCNd8QCDeCLDpFnH2I2ReCAowCpOjB9F7 RTt2UAZ+HUfeS4M9GWIcGMB7OKPqWiXcNSL2RnTeQwWpDEI6MCh4JZ3eNKARGg9+DQpzdGFydHhyZWYN FiJ0GZKfEMeeZEPPRv0V ID Date Data Source [id number] 12/08/2019 01:21:00 [place] [address] PHONE: [phone] FAX: [phone] Name .................. : JOE Knutson Acct Number.................. : [id number] ROOM. ................. : TR-06 MR Number ................... : [id number] Stay type ............. : E/R Discharge Date......... ... : 12/05/19 Admit Date ......... : 12/05/19 Admit Phys .................... : VENERUS BR Date of ....... : 1990 Family Phys ................... : UNKNOWN Phone .................. : [phone] Age ................................ : 29 Film# .................. .:[id number] Sex ................................. : F Unsigned transcriptions are preliminary reports and do not represent a medical or legal document CHEST PORTABLE [id number] COMPLETE:12/05/19 19:27 [facility] [place] [id number] Reason(s): Headache, hx in tercranial HTN, ? [employer] shunt defect. PORTABLE CHEST, 12/05/19: INDICATION: Headache and history of intracranial hypertension, question [employer] shunt defect. FINDINGS: Lung maddox are clear. No focal infiltrate or consolidation is identified. A [employer] shunt is present over the right hemithorax. Cardiac silhouette appears unremarkable. IMPRESSION: No acute pulmonary findings. Examination dictated by SREE Gray. Examination was reviewed with Jae Goldstein MD, radiologist at the time of this dictation. Electronically Reviewed and Signed By Jae Goldstein M.D. , 12/08/19 13:21, NDY Transcribe Initials: [facility], Transcribe Date: 12/08/19 09:17, Dictation Date: Copy for: SHE [facility] via fax Copy for: EMERGENCY DEPT via modem Copy for: 710 MED REC DISCHARGED Page 1 of 1 Name Value Range Interpretation Code Description Data Shelbi rce(s) Supporting Document(s) ID Date Data Source [id number] 12/08/2019 01:20:00 PM EDT [facility] [address] [place] [address] PHONE: [phone] FAX: [phone] Name .................. : JOE Knutson Acct Number.................. : [id number] ROOM. ................. : TR-06 Number ................... : [id number] Stay type ............. : E/R Discharge Date......... ... : 12/05/19 Admit Date ......... : 12/05/19 Admit Phys .................... : LADONNA CASAS Date of ....... : 1990 Family Phys ................... : UNKNOWN Phone .................. : [phone] Age ................................ : 29 Film# .................. .:[id number] Sex ................................. : F Unsigned transcriptions are preliminary reports and do not represent a medical or legal document CT HEAD W/O CONTRAST [id number] COMPLETE:12/05/19 19:01 PENG [id number] Reason(s): posterior headache, hx of intracranial HTN, recent MANUAL EQUIPMENT MECHANIC shunt doroteo CT SCAN OF THE HEAD WITHOUT IV CONTRAST, 12/05/19: INDICATION: Posterior headache. FINDINGS: No acute hemorrhage or infract is identified. No midline shift or mass effect is identified. There is a MANUAL EQUIPMENT MECHANIC shunt identified on the right side. Osseous structures appear unremarkable. IMPRESSION: No acute findings. Ventricular shunt is present on the right side. While performing the above CT examination, radiation dose reduction was accomplished utilizing automated exposure control, adjusting of the mA and kV based on the patient's body size and/or the use of imperative reconstructive techniques. CT dose 855.7 mGycm. Examination dictated by SREE Gray. Examination was reviewed with Jae Goldstein MD, radiologist at the time of this dictation. Electronically Reviewed and Signed By Jae Goldstein M.D. , 12/08/19 13:20, NDY Transcribe Initials: SSR, Transcribe Date: 12/08/19 09:01, Dictation Date: Copy for: [facility] via fax Copy for: EMERGENCY DEPT via [facility] [place] Copy for: [facility] REC [address] [place] [address] PHONE: [phone] FAX: [phone] Name .................. : JOE NIMA Eamon Acct Number.................. : [id number] ROOM. ................. : TR-06 MR Number ................... : [id number] Stay type ............. : E/R Discharge Date......... ... : 12/05/19 Admit Date ......... : 12/05/19 Admit Phys .................... : LADONNA CASAS Date of ....... : 1990 Family Phys ................... : UNKNOWN Phone .................. : [phone] Age ................................ : 29 Film# .................. .:[id number] Sex ................................. : F Unsigned transcriptions are preliminary reports and do not represent a medical or legal document CT HEAD W/O CONTRAST [id number] COMPLETE:12/05/19 19:01 PENG [id number] Reason(s): posterior headache, hx of intracranial HTN, recent MANUAL EQUIPMENT MECHANIC shunt doroteo DISCHARGED Page 2 of 2 Name Value Range Interpretation Code Description Data Shelbi rce(s) Supporting Document(s) ID Date Data Source [id number] 12/08/2019 12:35:05 PM EDT [facility] Name Value Range Interpretation Code Description Data Shelbi rce(s) Supporting Document(s) ED Provider Note [facility] [id number] lbm [file] product marketing [file] [id number] ID Date Data Source [id number] 12/06/2019 11:36:09 AM EDT [facility] Name Value Range Interpretation Code Description Data Shelbi rce(s) Supporting Document(s) Consultation [facility] [id number] lbm [file] +[id number]iMSkCb/OM/+NEUROLOGY PHYSICIAN ASSISTANT [file] [id number] ID Date Data Source [id number] 12/06/2019 04:42:07 AM EDT [facility] XR SKULL LIMITED [id number] RESULTInterp reted by:CAROLIN MaciasROCEDURE INFORMATION: Exam: XR Skull, Less Than 4 Views Exam date and time: 12/06/2019 2:56 AM Age: 29 years old Clinical indication: Other: Shunt series TECHNIQUE: Imaging protocol: XR of the skull, less than 4 views. COMPARISON: CR XR SKULL LIMITED [id number] 2019-02-28 23:42 FINDINGS: Tubes, catheters and devices: Shunt catheter tubing over the right neck is intact. Sinuses: Well aerated. No opacification. Bones/joints: No fracture. Soft tissues: Unremarkable. IMPRESSION: Shunt catheter tubing over the right neck is intact. THIS DOCUMENT HAS BEEN ELECTRONICALLY SIGNED BY BRENDA MTZ MDThis document has been electronically signed by Brenda Mtz MD on 12/06/2019 4:42 AM Name Value Range Interpretation Code Description Data Shelbi rce(s) Supporting Document(s) ID Date Data Source [id number] 12/06/2019 04:41:47 AM EDT [facility] XR CHEST FRONTAL AND LATERAL [id number] RESULTInterpreted by:ALANA Macias INFORMATION: Exam: XR Chest, 2 Views Exam [...] DOCUMENT HAS BEEN ELECTRONICALLY SIGNED BY BRENDA MTZ MDThis document has been electronically signed by Brenda Mtz MD on 12/06/2019 4:41 AM Name Value Range Interpretation Code Description Data [facility] rce(s) Supporting Document(s) ID Date Data Source [id number] 12/06/2019 04:41:17 AM EDT [facility] XR ABDOMEN AP SUPINE AND LATERAL VIEW [id number] 019FINAL RESULTInterpreted by:ALANA Macias INFORMATION: Exam: XR Abdomen, 2 Views Exam date and time: 12/06/2019 2:56 AM Age: 29 years old Clinical indication: Other: Shunt series TECHNIQUE: Imaging protocol: XR of the abdomen. Views: 2 Views. COMPARISON: CR XR ABDOMEN AP SUPINE AND LATERAL VIEW [id number] 2019-07-21 22:26 FINDINGS: Tubes, catheters and devices: Shunt catheter tubing intact. Additional catheter along the inferior margin of the liver. Gastrointestinal tract: Normal. No bowel dilation. Intraperitoneal space: Normal. No free air. Organs: Additional gallbladder clips. Bones/joints: Unremarkable for age. IMPRESSION: Shunt catheter tubing intact. THIS DOCUMENT HAS BEEN ELECTRONICALLY SIGNED BY BRENDA MTZ MDThis document has been electronically signed by Brenda Mtz MD on 12/06/2019 4:41 AM Name Value Range Interpretation Code Description Data Shelbi rce(s) Supporting Document(s) ID Date Data Source [id number] 12/05/2019 05:39:[address] [facility] [address] [facility] Emergency Department [address] [place] [address] Phone #: ext- [phone] 12/05/2019 17:42 Patient: NIMA DIAZ Sex: F : 1990 Age: 29yWEIGHT:106.5 kg (S) HEIGHT:62 inches (S) BMI:43.0ALLERGIES: Sulfa AntibioticsCHIEF COMPLAINT: headacheLAB ORDERSOrder Description Priority Entered Acknowledged InitialedUrinalysis (Clean STAT 17:58 12/05/2019 17:58 Christi Weinstein) Cindi Weinstein R.N.; R.NTamara Verbal order per; Inocencio Will PhysicianCBC w Diff STAT 18:42 12/05/2019 18:51 Renzo Wilkinson; Marlo MarcusCMP STAT 18:42 12/05/2019 18:51 Renzo Wilkinson; Marlo MarcusDIAGNOSTIC STUDY ORDERSOrder Description Priority Entered Acknowledged InitialedCT Head W/O Cont STAT 18:42 12/05/2019 18:51 Minh,(Oxygen?(N o)) Renzo BALBUENA; Marlo Marcus Reason for Study: posterior headache, hx of intracranial HTN, recent MANUAL EQUIPMENT MECHANIC shunt removalChest Portable 1 STAT 19:21 12/05/2019 19:54 Minh,Haley BALBUENA; Marlo Marcus(Oxygen?(No)) Reason for Study: Headache, hx intercranial HTN, ? MANUAL EQUIPMENT MECHANIC shunt defect.MEDICATION/IV/DRIP/FLUID ORDERSOrder Description Priority Entered Acknowledged InitialedZofran IVP 4 mg 18:55 12/05/2019 19:15 Renzo Wilkinson; Marlo MarcusMorphine IVP 2 mg 18:55 12/05/2019 19:15 Minh,(NOW x1, keep o2 Renzo BALBUENA; Marlo Marcussat > 90%, HIGHALERTMEDICATION)Morphine IVP 2 mg 20:24 12/05/2019 20:26 Minh,(NOW x1, keep o2 Renzo BALBUENA; Marlo Marcussat > 90%, HIGH [address] [facility] Emergency Department [address] [place] [address] Phone #: ext- [phone] 12/05/2019 17:42 Patient: NIMA DIAZ Sex: F : 1990 Age: 29yALERTMEDICATION)Zofran IVP 4 mg 21:15 12/05/2019 21:57 Renzo Wilkinson; Marlo MarcusAcetaminophen 1 g 21:15 12/05/2019 21:57 Minh,PO X1 dose: 1000 Renzo BALBUENA; Marlo Marcusmg (NOW x1)Morphine IVP 2 mg 22:04 12/05/2019 22:47 Rika Mayes(NOW x1, keep o2 Renzo BALBUENA; Gayle Marcussat > 90%, HIGHALERTMEDICATION)GENERAL ORDERSOrder Description Priority Entere d Acknowledged InitialedSaline Lock 18:55 12/05/2019 19:14 Renzo Wilkinson; Marlo Marcus[Electronically signed by Renzo Nowak (22:09 12/05/2019)][Electronically signed by Rika Saldana R.N. (04:27 12/06/2019)][Electronically locked by Rika Saldana R.N. (04:27 12/06/2019)] Name Value Range Interpretation Code Description Data Shelbi rce(s) Supporting Document(s) ID Date Data Source [id number] 12/05/2019 05:39:[address] [facility] [address] [facility] Emergency Department [address] [place] [address] Phone #: ext- [phone] 12/05/2019 17:42 Patient: NIMA DIAZ Sex: F : 1990 Age: 29yWeight: 106.5 kgHeight/Length: 62 in.BMI: 43.0ALLERGIES: Sulfa AntibioticsThe patient's Home Medications are listed below:THE FOLLOWING MEDICATIONS NEED TO BE RECONCILED: Ascorbic Acid Buffered Oral 500, 2x a day Ferrous Sulfate Oral (325 (65 Fe) mg) 1 tablet, 2x a day metFORMIN HCl Oral (8 50 mg) 1 tablet, 2x a day PROzac Oral (40 mg) 1 capsule, daily Topamax Oral (200 mg) 1 tablet, 2x a dayThe source(s) of the original Home Medication information:Not obtained.The following Medications were given to the patient in the Emergency Department:Zofran [IVP] IVP 4 mg, administered: 12/05/2019 7:15:00 PMMorphine [IVP] IVP 2 mg, administered: 12/05/2019 7:15:00 PMMorphine [IVP] IVP 2 mg, administered: 12/05/2019 8:26:00 PMZofran [IVP] IVP 4 mg, administered: 12/05/2019 9:57:00 PMTylenol [PO] PO 1000 mg, administered: 12/05/2019 9:57:00 PMMorphine [IVP] IVP 2 mg, administered: 12/05/2019 10:42:00 PMThe following Medications were prescribed to the patient:None. [address] [facility] Emergency Department [address] [place] [address] Phone #: ext- [phone] 12/05/2019 17:42 Patient: NIMA GLASS Sex: F : 1990 Age: 29y Name Value Range Interpretation Code Description Data Shelbi rce(s) Supporting Document(s) ID Date Data Source [id number] 12/05/2019 05:39:[address] [facility] [address] [facility] Emergency Department [address] [place] [address] Phone #: ext- [phone] 12/05/2019 17:42 Patient: NIMA DIAZ Sex: F : 1990 Age: 29yWeight: 106.5 kgHeight/Length: 62 inBMI: 43ALLERGIES: Sulfa Antibiotics Date/Time Medication Administered Medication OrderedGiven ZOFRAN [IVP] (ONDANSETRON HCL) Zofran IVP 4 mg19:15 12/05/2019 Dose: 4 mg Marlo Schmitt RTamaraN. Site: #1 left forearmGiven MORPHINE [IVP] Morphine IVP 2 mg (NOW x1, keep19:15 12/05/2019 Dose: 2 mg IVP o2 sat > 90%, HIGH ALERTMarlo Wilkinson RTamaraN. Site: #1 left forearm MEDICATION)Given MORPHINE [IVP] Morphine IVP 2 mg (NOW x1, keep20:26 12/05/2019 Dose: 2 mg IVP o2 sat > 90%, HIGH ALERTGrMarlo eng R.N. Site: #1 left forearm MEDICATION)Given ZOFRAN [IVP] (ONDANSETRON HCL) Zofran IVP 4 mg21:57 12/05/2019 Dose: 4 mg IVMarlo Blackwood R.N. Site: #1 left forearmGiven TYLENOL [PO] (APAP) Acetaminophen 1 g PO X1 dose:21:57 12/05/2019 Dose: 1000 mg Tablets PO 1000 mg (NOW x1)Marlo Wilkinson R.N.Given MORPHINE [IVP] Morphine IVP 2 mg (NOW x1, keep22:42 12/05/2019 Dose: 2 mg IVP o2 sat > 90%, HIGH ALERTTina Gerber Araujo R.N. Site: #1 left forearm MEDICATION) Name Value Range Interpretation Code Description Data Shelbi rce(s) Supporting Document(s) ID Date Data Source [id number] 12/05/2019 05:39:[address] [facility] [address] [facility] Emergency Department [address] [place] [address] Phone #: ext- [phone] 12/05/2019 17:42 Patient: NIMA DIAZ Sex: F : 1990 Age: 29y(worsening headache with history of MANUAL EQUIPMENT MECHANIC shunt x 2 and recent removal of 1 MANUAL EQUIPMENT MECHANIC shunt. ? CSF leakage).(Electronically signed by SREE Jean 12/05/2019 22:09) Name Value Range Interpretation Code Description Data Shelbi rce(s) Supporting Document(s) ID Date Data Source [id number] 12/05/2019 05:39:[address] [facility] 1 Clinical Report - Nurses [facility] Emergency Department [address] [place] [address] Phone #: ext- [phone] 12/05/2019 17:42 Patient: NIMA DIAZ Sex: F : 1990 Age: 29yTRIAGEArrived by private vehicle. Historian: patient. Accompanied by family. ( pressure and pain starts hadbase of neck and goes down spine she states she has been leaking spinal fluid and now pain down left legand now vision issues).Acuity: LEVEL 3.Chief Complaint: NECK PAIN and BACK PAIN.Alert.Onset. (2 days ago). 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 (1300).SEPSIS SCREEN: SIRS Screen negative. Sepsis Screen negative. No suspected or confirmed signs ofinfection present. --17:55 12/05/19 Cindi Weinstein R.N.17:50 12/05/19. BP: 123/76. MAP: 91. HR: 102. RR: 18. O2 saturation: 97%. Temp: 98 F. Pain level now:11/12. --17:55 12/05/19 Cindi Weinstein R.N.Weight: 106.5 kg stated. Height/Length: 62 inches Per Patient. BMI: 43. --17:50 12/05/19 Cindi Weinstein R.N.MedicationsAscorbic Acid Buffered Oral 500, 2x a day. Ferrous Sulfate Oral (Tablet 325 (65 Fe) mg) 1 tablet, 2x a day. metFORMIN HCl Oral (Tablet 850 mg) 1 tablet, 2x a day. PROzac Oral (Capsule 40 mg) 1 capsule, daily. Topamax Oral (Tablet 200 mg) 1 tablet, 2x a day. --17:52 12/05/19 Cindi Weinstein R.N.Reji rgiesSulfa Antibiotics. --17:52 12/05/19 Cindi Weinstein R.N.PROBLEMS:Herpes Zoster.Headache.INTERCRANIAL HYPERTENSION.Idiopathic intracranial hypertension.Head Injury.Changed Mental Status.Cellulitis.Abdominal Pain. 2 Clinical Report - Nurses [facility] Emergency Department [address] [place] [address] Phone #: ext- [phone] 12/05/2019 17:42 Patient: NIMA DIAZ Sex: F : 1990 Age: 29yGI Disease.Diabetes Mellitus.Chronic Headache.Pseudotumor cerebrae.Post-Op Complications.Polycystic Ovary Disease.Tension-Type Headache.Sepsis (disorder).Seizure.PCOS.Neck Pain.Migraine Headache.Irritable bowel syndrome (disorder).Ovarian Cyst.Neurological Disease. --17:53 12/05/19 Cindi Weinstein R.N.ADDITIONAL SURGERIES:Appendectomy.Excision ganglion cyst (bl wrist).Excision of lipoma.Nasal septal deviation repair.Sinus Surgery.Tonsillectomy. --17:53 12/05/19 Cindi Weinstein R.N.HistoryPAST MEDICAL HX: Immunizations: up-to-date. Last normal menstrual period- Nov 24.SOCIAL HX: Never smoker. No alcohol use or drug use. She was offered HIV testing but declined andhepatitis C testing but decli yunier. She has not traveled outside the [place]Infectious disease exposure: No infectious disease exposure. Patient is not a known carrier of tuberculosis,hepatitis, HIV, MRSA or VRE. Patient is not a known carrier of CRE.SELF HARM ASSESSMENT: Self harm assessment was performed. The patient answered "no" to thequestion(s) "Have you recently felt down, depressed, or hopeless?", "Do you have thoughts of harming orkilling yourself?", "Do you have a plan for harming or killing yourself?", "Have you recently had thoughtsabout harming or killing others?", "Do you have any dangerous items in your possession?", "Have younoticed less interest or pleasure in doing things?", "Are you here because you tried to hurt yourself?" and"Have you ever tried to hurt yourself before today?".ABUSE ASSESSMENT: Abuse assessment. Abuse denied. No suspicion of abuse. No report of abuse.NUTRITIONAL RISK ASSESSMENT: The nutritional risk assessment revealed no deficiencies.FUNCTIONAL ASSESSMENT: Functional assessment: no impairments noted. 3 Clinical Report - Nurses [facility] Emergency Department [address] [place] [address] Phone #: ext- [phone] 12/05/2019 17:42 -- Patient: NIMA DIAZ Sex: F : 1990 Age: 29y LEARNING NEEDS ASSESSMENT: The learning needs assessment revealed no barriers. FALL RISK ASSESSMENT: Fall risk assessment completed. No risk factors identified. SKIN INTEGRITY ASSESSMENT: Skin integrity risk assessment completed. No skin integrity risk identified. --17:55 12/05/19 Cindi Weinstein R.N. Interventions Identification band on patient. To treatment room. --17:55 12/05/19 Cindi Weinstein R.N.PHYSICAL ASSESSMENTRESPIRATORY: Respirations not labored.CVS: Normal heart rate and rhythm.BACK: Soft tissue tenderness. --18:52 12/05/19 Marlo Wilkinson R.N.NURSING PROGRESS NOTESReassurance given. Two patient identifiers checked. Call light placed in reach. Side rails up x 2. Bedplaced in lowest position. Brakes of bed on. Patient ready for evaluation- ED physician and PA notified.--17:55 12/05/19 Cindi Weinstein R.N. Patient ID band checked for patient name and birthdate: patient confirmed. Instructions provided to collect clean catch urine and patient verbalized understanding. Clean catch urine collected; sample sent to lab for urinalysis. Specimen labeled in the presence of the patient. --17:58 12/05/19 Cindi Weinstein R.N. 19:15 12/05/2019 Site #1 started via IV in the left forearm with an 20g angiocath; one attempt. Saline lock flushed with 3 mL saline. --19:15 12/05/19 Marlo Wilkinson R.N. 19:15 12/05/2019 Zofran (Ondansetron HCl) IVP 4 mg given over 3 minute(s) via site #1. --19:15 12/05/19 Marlo Wilkinson R.N. 19:15 12/05/2019 Morphine IVP 2 mg given over 3 minute(s) via site #1. --19:15 12/05/19 Marlo Wilkinson R.N. Patient returned from CT by wheelchair with tech. --19:15 12/05/19 Marlo Wilkinson R.N. 19:55 12/05/19. BP: 126/72. MAP: 90. HR: 76. RR: 18. O2 saturation: 98%. Temp: deferred. Pain level now: 09/11. --19:55 12/05/19 Marlo Wilkinson R.N. Reassurance given to the patient. The patient is calm. Overall patient status is the same. --19:55 12/05/19 Marlo Wilkinson R.N. 20:26 12/05/2019 Morphine IVP 2 mg given over 3 minute(s) via site #1. --20:12/05/19 Marlo Wilkinson R.N. 4 Clinical Report - Nurses [facility] Emergency Department [address] [place] [address] Phone #: [phone]- [phone] 12/05/2019 17:42 Patient: NIMA DIAZ Sex: F : 1990 Age: 29y Reassessment after medication administered. Pain still pre sent but improving. ( P tup to BR without assistance. Appears more comfortable than when presented to the ER.). --21:12/05/19 Marlo Wilkinson R.N. 21:00 12/05/19. BP: 132/74. MAP: 93. HR: 76. RR: 18. O2 saturation: deferred. Temp: deferred. Pain level now: 06/12. --21:01 12/05/19 Marlo Wilkinson R.N. 21:57 12/05/2019 Zofran (Ondansetron HCl) IVP 4 mg given over 3 minute(s) via site #1. --21:57 12/05/19 Marlo Wilkinson R.N. 21:57 12/05/2019 Tylenol (APAP) PO Tablets 1000 mg given. --21:57 12/05/19 Marlo Wilkinson R.N. 21:57 12/05/19. BP: 124/66. MAP: 85. HR: 64. RR: 18. O2 saturation: 98%. Temp: deferred. Pain level now: 08/12. --21:58 12/05/19 Marlo Wilkinson R.N. ( Pt continues to dry heave and c/o pain. PA notified.). --21:58 12/05/19 Marlo Wilkinson R.N. 22:42 12/05/2019 Morphine IVP 2 mg given over 2 minute(s) via site #1. Allergies verified and confirmed 5 rights. IV patency established. IV site checked: no pain, redness, or swelling. IV flushed thoroughly pre- and post-medication administration. IVP given by RN. Information reviewed with patient including reason for taking this medication and sedative warning. Verbalizes understanding. --22:47 12/05/19 Rika Araujo R.N. 22:47 12/05/2019 Site #[address] upon discharge. --22:47 12/05/19 Rika Araujo R.N.DISPOSITION / DISCHARGE Transferred to [facility]. Report was given via a phone call. Report included information regarding patient's treatment and condition including: recent changes, current vital signs and critical labs. Report included treatment information regarding medications given or pending; type and amount of IV fluids and medications infusing. All questions were answered. Report was acknowledged. (Lizette ALONSO). --22:07 12/05/19 Marlo Wilkinson R.N. Transported via ambulance by tech and adjunct instructor of women's studies. --22:08 12/05/19 Marlo Wilkinson R.N. 22:08 12/05/19. BP: 140/94. MAP: 109. HR: 85. RR: 18. O2 saturation: 98%. Temp: 98.2 F. Pain level now: 09/11. --22:08 12/05/19 Marlo Wilkinson R.N. ( Care transferred to Rika ALONSO.). --22:21 12/05/19 Marlo Wilkinson R.N. Departure time: 22:50 12/05/2019. Condition at departure: stable. Transferred to [facility]. Visit overview provided to transport team and transfer facility via paper (Adult ED). Report was given to an EMT/P in person. Report was acknowledged. (Ann). --22:51 12/05/19 Rika Araujo R.N. 22:45 12/05/19. BP: 122/84. MAP: 96. HR: 88. RR: 18. O2 saturation: 98%. Temp: 98 F. Pain level now: 5 Clinical Report - Nurses [facility] Emergency Department [address] [place] [address] Phone #: ext- [phone] 12/05/2019 17:42 Patient: NIMA DIAZ Sex: F : 1990 Age: 29y 04/14. --22:51 12/05/19 Rika Araujo R.N.Locked/Released at 12/06/2019 04:27 by Rika Araujo R.N. Name Value Range Interpretation Code Description Data Shelbi rce(s) Supporting Document(s) ID Date Data Source [id number] 12/05/2019 05:39:[address] [facility] 1 Clinical Report - Physicians/Mid Levels [facility] Emergency Department [address] [place] [address] Phone #: ext- [phone] 12/05/2019 17:42 Patient: NIMA DIAZ Sex: F : 1990 Age: 29y Time Seen: 18:41 12/05/2019. Arrived- By private vehicle. Historian- patient. Disposition decision: 21:10 12/05/2019.HISTORY OF PRESENT ILLNESS Chief Complaint: HEADACHE. nausea, ? CSF leakage. This started several days ago. It is described as pressure. Has had neck pain. Not located in the facial region. Located in the occipital region. The patient has had blurred vision and nausea. No preceding symptoms, photophobia, numbness, weakness or vomiting. (Increasing posterior headache, upper and lower back pain,? leaking CSF from R ear/eye, pt states recent hospitalization at [facility], where she had MANUAL EQUIPMENT MECHANIC shunt removed, hx of intracranial HTN. Pt states she "coded" during the shunt removal and was revived after 5 mins, but states [facility] neurosurgery did not replace shunt due to code event. Nausea over past several days. No fever.). She has had recent travel- (travel to [facility] in past month). Similar symptoms previously. Patient has had similar symptoms several times. Recent medical care: The patient was seen recently at another facility and hospitalized.REVIEW OF SYSTEMSNo fever, muscle aches, sinus pressure, ear pain or sore throat. No carbon monoxide exposure, tick bite,head injury, chest pain or difficulty breathing. No cough, abdominal pain, diarrhea, pain with urination orskin rash. No enlarged lymph nodes. The patient has had moderate upper and lower back pain. Nosymptom related to bladder or bowel dysfunction.PAST HISTORYSee nurses notes. History of chronic headaches. Problems: Hypertension. Intercranial hypertension. Other Disease. Herpes Zoster. Headache. INTERCRANIAL HYPERTENSION. Idiopathic intracranial hypertension. Head Injury. Changed Mental Status. Cellulitis. Abdominal Pain. GI Disease. 2 Clinical Report - Physicians/Mid Levels [facility] Emergency Department [address] [place] [address] Phone #: [phone] 12/05/2019 17:42 Patient: NIMA DIAZ Sex: F : 1990 Age: 29y Diabetes Mellitus. Chronic Headache. Pseudotumor cerebrae. Post-Op Complications. Polycystic Ovary Disease. Tension-Type Headache. Sepsis (disorder). Seizure. PCOS. Neck Pain. Migraine Headache. Irritable bowel syndrome (disorder). Ovarian Cyst. Neurological Disease. Additional Surgeries: Appendectomy. Cholecystectomy. Excision ganglion cyst (bl wrist). Excision of lipoma. Exploratory laparotomy. Intracranial shunt [06/13/2018]. Laparotomy. Lp shunt removal. Nasal septal deviation repair. Sinus Surgery. Spinal shunt surgery. Tonsillectomy. Ventriculo Peritoneal Shunt Surgery [07/2015]. 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 Medications: Ascorbic Acid Buffered Oral 500, 2x a day. Ferrous Sulfate Oral (Tablet 325 (65 Fe) mg) 1 tablet, 2x a day. metFORMIN HCl Oral (Tablet 850 mg) 1 tablet, 2x a day. PROzac Oral (Capsule 40 mg) 1 capsule, daily. Topamax Oral (Tablet 200 mg) 1 tablet, 2x a day. Allergies: Sulfa Antibiotics.SOCIAL HISTORYNever smoker. No alcohol use or drug use.ADDITIONAL NOTES 3 Clinical Report - Physicians/Mid Levels [facility] Emergency Department [address] [place] [address] Phone #: ext- [phone] 12/05/2019 17:42 Patient: NIMA DIAZ Sex: F : 1990 Age: 29y The nursing notes have been reviewed with agreement regarding the chief complaint, HPI, ROS, PMH and patient medications and allergies.PHYSICAL EXAMVital Signs: 12/05/2019 17:50 BP: 123/76. MAP: 91. HR: 102. RR: 18. O2 saturation: 97%. Temp: 98 F.Pain level now: 11/12. Have been reviewed as abnormal and appear to be correct. Blood pressurenormal. Mean arterial pressure- normal. Tachycardic. Respiratory rate normal. Temperature normal.Oxygen saturation normal.Appearance: Alert. No acute distress.Eyes: Pupils equal, round and reactive to light. Eyes normal inspection.ENT: Ears normal. Nose normal. Pharynx normal.Neck: Normal inspection. Neck supple.CVS: Tachycardia. Heart sounds normal. Pulses normal.Respiratory: No respiratory distress. Painless inspiration. Breath sounds normal.Abdomen: Nontender. No organomegaly. Moderately obese.Back: Normal inspection.Skin: Skin warm and dry. Normal skin color. No rash. Normal skin turgor.Extremities: Extremities exhibit normal ROM. No lower extremity edema.Neuro: Oriented X 3. Alert. Mood/affect normal. Speech normal. Cranial nerves normal (as tested).No cerebellar findings. No motor deficit. No sensory deficit. Reflexes normal.LABS, X-RAYS, AND EKGChest X-ray: No acute disease. Interpretation time: 19:50 12/05/2019. Head CT performed withoutcontrast. The study was independently viewed by me and interpreted by the radiologist andcontemporaneously by me. Interpretation time: 19:50 12/05/2019.Laboratory Tests: Laboratory tests have been ordered, with resu lts reviewed and considered in themedical decision making process. Chest Portable 1 View: (SOPHY: 12/05/2019 19:21) ( MsgRcvd 12/05/2019 19:27) In Progress CHEST PORTABLE Reason(s): Headache, hx intercranial HTN, ? [employer]MENT [employer] shunt defect. TRANSPORTATION: IV? O2? Oxygen?(No) Room: ED CBC w Diff: (SOPHY: 12/05/2019 18:53) ( FlgRcvd 12/05/2019 19:02) Final results Test Result Flag Units (Reference) CBC W/AUTOMATED DIFF COMPLETE BLOOD COUNT WBC 8.7 10/uL (4.2 - 11.0) RBC 4.03 L 10/uL (4.20 - 5.40) HEMOGLOBIN 12.3 g/dL (12.0 - 16.0) HEMATOCRIT 37.6 % (37.0 - 47.0) MCV 93.3 fL (81.0 - 101) MCH 30.5 pg (27.0 - 34.0) MCHC 32.7 g/dL (31.0 - 36.0) RDW 12.4 % (11.5 - 14.5) PLATELETS 348 10/uL (150 - 450) MPV 9.1 fL (7.4 - 10.4) NEUT 68.5 % (37.0 - 80.0) 4 Clinical Report - Physicians/Mid Levels [facility] Emergency Department [address] [place] [address] Phone #: [phone] 12/05/2019 17:42 Patient: NIMA DIAZ [facility]#: [id number] Sex: F : 1990 Age: 29y LYMPH 22.7 L % (25.0 - 40.0) MONO 6.5 % (3.0 - 8.0) EOS 1.1 % (0.0 - 7.0) BASO 0.6 % (0.0 - 2.5) %IG 0.6 H % (0.0 - 0.0) %NRBC 0.0 % (0.0 - 0.0) #NEUT 5.97 10/uL (2.00 - 6.90) #LYMPH 1.98 10/uL (0.60 - 3.40) #MONO 0.57 10/uL (0.00 - 0.90) #EOS 0.10 10/uL (0.00 - 0.70) #BASO 0.05 10/uL (0.00 - 0.20) #IG 0.05 10/uL (0.00 - 0.10) #NRBC 0.00 10/uL (0.00 - 0.00) MANUAL DIFF NOT INDICATED RBC MORPH NOT INDICATEDCMP: (SOPHY: 12/05/2019 18:53) ( MsgRcvd 12/05/2019 19:41) Final results Test Result Flag Units (Reference) COMPREHENSIVE METABOLIC PANEL COMPREHENSIVE METABOLIC PANEL SODIUM 139 mEq/L (134 - 153) POTASSIUM 4.2 mEq/L (3.6 - 5.0) CHLORIDE 104 mEq/L (98 - 107) CO2 23 MEQ/L (22 - 30) GLUCOSE 96 MG/DL (65 - 110) BUN 13 MG/DL (7 - 21) CREATININE 0.6 L MG/DL (0.7 - 1.5) BUN/CREAT 22 (8 - 27) TOTAL PROTEIN 6.4 G/DL (6.3 - 8.2) ALBUMIN 4.1 G/DL (3.9 - 5.0) GLOBULIN 2.3 L GM/DL (2.4 - 3.2) A/G RATIO 1.8 (0.8 - 2.0) CALCIUM 9.6 MG/DL (8.4 - 10.2) TOTAL BILI <0.7 MG/DL (0.2 - 1.3) ALKALINE PHOS 81 U/L (38 - 126) SGOT/AST 17 U/L (5 - 40) SGPT/ALT 24 U/L (7 - 56) ANION GAP 12.0 mmol/L (8.0 - 16.0) AGE 29 yrs NON-AA GFR >60 mL/min AFR AMER GFR >60 mL/min Male GFR Interprentation 20-49 yrs >60 mL/min Tgfbor03-51 yrs >56 mL/min Normal 60-69 yrs >49 mL/min Normal 70-79yrs>42 mL/min Normal 80 and above >35 mL/min Normal Female GFRInterpretation 20-39 yrs >60 mL/min Normal 40-49 yrs >58 mL/minNormal 50-59 yrs >51 mL/min Normal 60-69 yrs >45 mL/min Rqtqlm98-23 yrs >39 mL/min Normal 80 and above >32 mL/min NormalCT Head W/O Cont: (SOPHY: 12/05/2019 18:42) ( MsgRcvd 12/05/2019 19:01) In ProgressCT HEAD W/O CONTRASTReason(s): posterior headache, hx of intracranial HTN, recent [employer] shunt removalTRANSPORTATION: WC IV? O2? Oxygen?(No) Room: EDUrinalysis: (SOPHY: 12/05/2019 18:00) ( MsgRcvd 12/05/2019 18:20) Final results Test Result Flag Units (Reference) URINALYSIS 5 Clinical Report - Physicians/Mid Levels [facility] Emergency Department [address] [place] [address] Phone #: [phone] 12/05/2019 17:42 Patient: NIMA DIAZ Sex: F : 1990 Age: 29y URINALYSIS SOURCE R COLOR yellow (NORMAL: Yello CLARITY clear (NORMAL: Clear SPEC GRAVITY 1.015 (1.001 - 1.030 pH 6.5 (5 - 9) GLUCOSE NORM (NORMAL: Negat BILIRUBIN NEG (NORMAL: Negat KETONE NEG (NORMAL: Negat PROTEIN NEG (NORMAL: Negat NITRITE NEG (NORMAL: Negat BLOOD NEG (NORMAL: Negat LEUK EST NEG (NORMAL: Negat UROBILINOGEN NOR (less than 1.0 MICROSCOPIC Not Indicate.PROGRESS AND PROCEDURESCourse of Care: 19:33 Dec [address] head results. 22:05 Dec 05 2019. Pt will be transferred to [facility] ED for further evaluation after consultation with Dr Ramos, neurosurgery, for worsening headache with hx of intracranial HTN, [employer] E[employer]CH[employer] shunt and recent MAN[employer] E[employer]IPMENT MECH[employer] shunt removal. Dr Pardo ED attending, accepting physician. Critical care performed (30 minutes). Time is exclusive of separately billable procedures. Time includes: direct patient care , patient reassessment, coordination of patient care, interpretation of data (laboratory data and pulse oximetry), medical consultation and documentation of patient care- see progress notes. Disposition: Benefits, risks and alternatives to transfer explained to patient. Transferred to [facility]. Summary of care (CCDA) provided to transport team, EMS, patient and transfer facility via paper. UTI (catheter associated) was not present prior to transfer. Pressure ulcer was not present prior to transfer. Vascular infection (catheter associated) was not present prior to transfer. Surgical site infection was not present prior to transfer. An object left in surgery was not present prior to transfer. Blood incompatibility was not present prior to transfer. Air embolism was not present prior to transfer.CLINICAL IMPRESSION (worsening headache with history of MANUAL EQUIPMENT MECHANIC shunt x 2 and recent removal of 1 [employer] EQUIPMENT MECHANIC shunt. ? CSF leakage).(Electronically signed by SREE Jean 12/05/2019 22:09) 6Clinical Report - Physicians/Mid Levels [facility] Emergency Department [address] [place] [address] Phone #: [phone] 12/05/2019 17:42 Patient: NIMA DIAZ Sex: F : 1990 Age: 29y Name Value Range Interpretation Code Description Data Shelbi rce(s) Supporting Document(s) ID Date Data Source [id number] 12/06/2019 04:07:03 AM T [facility] Name Value Range Interpretation Code Description Data Shelbi rce(s) Supporting Document(s) Leukocytes [#/volume] in Blood by Automated count 7.6 10*3/uL 4-10 [facility] Erythrocytes [#/volume] in Blood by Automated count 4.07 10*6/uL 4.1- 5.3 L [facility] Hemoglobin [Mass/volume] in Blood 12.6 g/dL 11.5-15.5 [facility] Hematocrit [Volume Fraction] of Blood by Automated count 38.1 % 3 6-45 [facility] Erythrocyte mean corpuscular volume [Entitic volume] by Auto mated count 93.7 fL 80-96 [facility] Erythrocyte mean corpuscular hemoglobin [Entitic mass] by Automated count 31.1 pg 27-33 [facility] Erythrocyte mean corpuscular hemoglobin concentration [Mass/volume] by Automated count 33.1 g/dL 32.0-36.0 [facility] Erythrocyte distribution width [Ratio] by Automated count 13.7 % 11.5-14.5 [facility] Platelets [#/volume] in Blood by Automated count 363 10*3/uL 150-400 [facility] Differential cell count method - Blood [facility] Neutrophils/100 leukocytes in Blood by Automated count 56 % [facility] Lymphocytes/100 leukocytes in Blood by Automated count 31 % [facility] Monocytes/100 leukocytes in Blood by Automated count 10 % [facility] Eosinophils/100 leukocytes in Blood by Automated count 2 % [facility] Basophils/100 leukocytes in Blood by Automated count 1 % [facility] Neutrophils [#/volume] in Blood by Automated count 4.32 10*3/uL 1.8-7 .0 [facility] Lymphocytes [#/volume] in Blood by Automated count 2.33 10*3/uL 1.2-4 .0 [facility] Monocytes [#/volume] in Blood by Automated count 0.74 10*3/uL 0-0.8 [facility] Eosinophils [#/volume] in Blood by Automated count 0.11 10*3/uL 0-0.5 [facility] Basophils [#/volume] in Blood by Automated count 0.06 10*3/uL 0-0.2 [facility] Nucleated erythrocytes/100 leukocytes [Ratio] in Blood by Automated count 0 /100{WBCs} 0-0 [facility] ID Date Data Source [id number] 12/06/2019 04:10:57 AM [facility] Name Value Range Interpretation Code Description Data Shelbi rce(s) Supporting Document(s) Prothrombin time (PT) 13.3 s 12.5-14.9 [facility] INR in Platelet poor plasma by Coagulation assay 1.00 [facility] Routine intensity oral anticoagulation I NR is typically 2.0-3.0. Target INR must be clinically individualized. ID Date Data Source [id number] 12/06/2019 04:25:50 AM [facility] Value Range Interpretation Code Description Data Shelbi rce(s) Supporting Document(s) Bicarbonate [Moles/volume] in Serum 23 mmol/L 22-29 [facility] Chloride [Moles/volume] in Serum or Plasma 109 mmol/L 98-107 H [facility] Creatinine [Mass/volume] in Serum or Plasma 0.58 mg/dL 0.50-0.90 [facility] Glucose [Mass/volume] in Serum or Plasma 80 mg/dL 70-140 [facility] Potassium [Moles/volume] in Serum or Plasma 3.5 mmol/L 3.4-5.1 [facility] Hemolyzed Sodium [Moles/volume] in Serum or Plasma 138 mmol/L 136-145 [facility] Urea nitrogen [Mass/volume] in Serum or Plasma 10 mg/dL 6-20 [facility] Anion gap 3 in Serum or Plasma 7 mmol/L 8-15 L [facility] Osmolality of Serum or Plasma by calculation 285 mosm/kg 275-300 [facility] Creatinine/Urea nitrogen [Mass Ratio] in Serum or Plasma 17 [facility] Calcium [Mass/volume] in Serum or Plasma 7.8 mg/dL 8.6-10.0 L [facility] Glomerular filtration rate/1.73 sq M pre dicted among non-blacks [Volume Rate/Area] in Serum or Plasma by Creatinine-based formula (MDRD) >6 0 [facility] Glomerular filtration rate/1.73 sq M pre dicted among blacks [Volume Rate/Area] in Serum or Plasma by Creatinine-based formula (MDRD) >60 [facility] ID Date Data Source [id number] 12/06/2019 05:15:25 AM EDT [facility] Name Value Range Interpretation Code Description Data Shelbi rce(s) Supporting Document(s) Erythrocyte sedimentation rate 29 mm/hr <20 H [facility] ID Date Data Source [id number] 12/05/2019 07:41:[address] [facility] Name Value Range Interpretation Code Description Data Shelbi rce(s) Supporting Document(s) COMPREHENSIVE METABOLIC PANEL [facility] COMPREHENSIVE METABOLIC PANEL Sodium [Moles/volume] in Serum or Plasma 139 mEq/L 134 - 153 [facility] Potassium [Moles/volume] in Serum or Plasma 4.2 mEq/L 3.6 - 5.0 [facility] Chloride [Moles/volume] in Serum or Plasma 104 mEq/L 98 - 107 [facility] Carbon dioxide, total [Moles/volume] in Serum or Plasma 23 MEQ/L 22 - 30 [facility] Glucose [Mass/volume] in Serum or Plasma 96 MG/DL 65 - 110 [facility] BUN 13 MG/DL 7 - 21 [facility] al Creatinine [Mass/volume] in Serum or Plasma 0.6 MG/DL 0.7 - 1.[address] [facility] BUN/CREAT 22 8 - 27 [facility] Protein [Mass/volume] in Serum or Plasma 6.4 G/DL 6.3 - 8.2 [facility] Albumin [Mass/volume] in Serum or Plasma 4.1 G/DL 3.9 - 5.0 [facility] Globulin [Mass/volume] in Serum by calculation 2.3 GM/DL 2.4 - 3.[address] [facility] A/G RATIO 1.8 0.8 - 2.0 [facility] Calcium [Mass/volume] in Serum or Plasma 9.6 MG/DL 8.4 - 10.2 [facility] Bilirubin.total [Mass/volume] in Serum or Plasma <0.7 MG/DL 0.2 - 1.3 [facility] Alkaline phosphatase [Enzymatic activity/volume] in Serum or Plasma 81 U/L 38 - 126 [facility] Aspartate aminotransferase [Enzymatic activity/volume] in Serum or Plasma 17 U/L 5 - 40 [facility] Alanine aminotransferase [Enzymatic activity/volume] in Seru m or Plasma 24 U/L 7 - 56 [facility] Anion gap 3 in Serum or Plasma 12.0 mmol/L 8.0 - 16.0 [facility] AGE 29 yrs [facility] Hospit al NON-AA GFR >60 mL/min [facility] Hosp ital AFR AMER GFR >60 mL/min [facility] Ho spital Male GFR In terprentation 20-49 yrs >60 mL/min Normal 50-59 yrs >56 mL/min Normal 60-69 yrs >49 mL/min Normal 70-79yrs >42 mL/min Normal 80 and above >35 mL/min Normal Female GFR Interpretation 20-39 yrs >60 mL/min Normal 40-49 yrs >58 mL/min Normal 50-59 yrs >51 mL/min Normal 60-69 yrs >45 mL/min Normal 70-79 yrs >39 mL/min Normal 80 and above >32 mL/min Normal ID Date Data Source [id number] 12/05/2019 07:02:[address] [facility] Name Value Range Interpretation Code Description Data Shelbi rce(s) Supporting Document(s) CBC W/AUTOMATED DIFF [facility] COMPLETE BLOOD COUNT Leukocytes [#/volume] in Blood by Automated count 8.7 10^3/uL 4.2 - [address] [facility] Erythrocytes [#/volume] in Blood by Automated count 4.03 10^6/uL 4. 20 - 5.[address] [facility] Hemoglobin [Mass/volume] in Blood 12.3 g/dL 12.0 - 16.0 [facility] Hematocrit [Volume Fraction] of Blood by Automated count 37.6 % 3 7.0 - 47.0 [facility] Erythrocyte mean corpuscular volume [Entitic volume] by Auto mated count 93.3 fL 81.0 - 101 [facility] Erythrocyte mean corpuscular hemoglobin [Entitic mass] by Automated count 30.5 pg 27.0 - 34.0 [facility] Erythrocyte mean corpuscular hemoglobin concentration [Mass/volume] by Automated count 32.7 g/dL 31.0 - 36.0 [facility] Erythrocyte distribution width [Ratio] by Automated count 12.4 % 11.5 - 14.5 [facility] Platelets [#/volume] in Blood by Automated count 348 10^3/uL 150 - [address] [facility] Platelet mean volume [Entitic volume] in Blood by Automated count 9.1 fL 7.4 - 10.4 [facility] Neutrophils/100 leukocytes in Blood by Automated count 68.5 % 37. 0 - 80.0 [facility] Lymphocytes/100 leukocytes in Blood by Manual count 22.7 % 25.0 - 40.[address] [facility] Monocytes/100 leukocytes in Blood by Automated count 6.5 % 3.0 - 8.0 [facility] Eosinophils/100 leukocytes in Blood by Automated count 1.1 % 0.0 - 7.0 [facility] Basophils/100 leukocytes in Blood by Automated count 0.6 % 0.0 - 2.5 [facility] %IG 0.6 % 0.0 - 0.0 [facility] 0.0 % 0.0 - 0.0 [facility] al Neutrophils [#/volume] in Blood by Automated count 5.97 10^3/uL 2.00 - 6.90 [facility] Lymphocytes [#/volume] in Blood by Automated count 1.98 10^3/uL 0.60 - 3.40 [facility] Monocytes [#/volume] in Blood by Automated count 0.57 10^3/uL 0.00 - 0.90 [facility] Eosinophils [#/volume] in Blood by Automated count 0.10 10^3/uL 0.00 - 0.70 [facility] Basophils [#/volume] in Blood by Automated count 0.05 10^3/uL 0.00 - 0.20 [facility] #IG 0.05 10^3/uL 0.00 - 0.10 [facility] ospital #NRBC 0.00 10^3/uL 0.00 - 0.00 [facility] H ospital MANUAL DIFF NOT INDICATED [facility] RBC MORPH NOT INDICATED [facility] Ho spital ID Date Data Source [id number] 12/05/2019 06:19:[address] [facility] Name Value Range Interpretation Code Description Data Shelbi rce(s) Supporting Document(s) [facility] URINALYSIS SOURCE R [facility] Hospit al COLOR yellow NORMAL: Yellow [facility] ospital CLARITY clear NORMAL: Clear [facility] Ho spital Specific gravity of Urine by Test strip 1.015 1.001 - 1.030 [facility] pH 6.5 5 - 9 [facility] Glucose [Mass/volume] in Urine by Test strip NORM NORMAL: Negat [facility] Bilirubin.total [Presence] in Urine by Test strip NEG NORMAL: Negative [facility] Ketones [Presence] in Urine by Test strip NEG NORMAL: Negative [facility] Protein [Mass/volume] in Urine by Test strip NEG NORMAL: Negat [facility] Nitrite [Presence] in Urine by Test strip NEG NORMAL: Negative [facility] BLOOD NEG NORMAL: Negative [facility] Leukocyte esterase [Presence] in Urine by Test strip NEG JESICA L: Negative [facility] Urobilinogen [Mass/volume] in Urine by Test strip NOR less melvi n 1.0 mg/dL [facility] MICROSCOPIC Not Indicate [facility] H ospital ID Date Data Source [id number] 11/23/2019 11:46:00 PM EDT [facility] Patient: NIMA DIAZ Observation Re port - Physicians/Mid Levels Hospital, [facility].VisitID: [id number] [place] [address] [phone], FRegistration Date/Time: 11/22/2019 22:39 Weight:106.5 kg (S). Height/Length:62 inches (S). BMI:43 PAST HISTORYProblems:Polycystic ovarian syndrome [Chronic].Pseudotumor cerebri [Chronic].Abdominal Pain [Chronic].GI Disease [Chronic].Intercranial hypertension [Chronic].Neurological Disease [Chronic].Pituitary mass [Chronic].Depression [Chronic].Migraine Headache. Additional Surgeries:Abdominal surgery to release gas S/P shunt repair.Appendectomy.Cholecystectomy.Kidney stone removal.LP shunt.Lypoma removed from back .Shunts. 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 (Right revised april 2018Left placed June 2018). Medications:Ascorbic Acid Oral (Tablet 500 mg) 1 tablet, 2x a day, last dose this am .Ferrous Sulfate Oral (Tablet 325 (65 Fe) mg) 1 tablet, 2x a day, last dose this am .MetFORMIN HCl Oral 850mg, 2x a day every AM, last dose this am .PROzac Oral (Capsule 40 mg) 1 capsule, daily, last dose this am. Allergies:enoxaparin.(hives)Sulfa (Sulfonamide Antibiotics). Severe(Anaphylaxis)Tape.(rash). FAMILY HISTORYNegative. No significant family medical history. (Electronically signed by Nunu Metcalf 11/23/2019 23:33) Name Value Range Interpretation Code Description Data [facility](s) Supporting Document(s) ID Date Data Source [id number] 11/23/2019 08:37:00 AM EDT [facility] DATE OF EXAMINATION: 11/22/2019 22:45 EDT BRAIN W/O CONTRAST INDICATION: Headache COMPARISON: 09/16/2019. This CT exam was performed using the following dose reduction techniques:Automated exposure control, adjustment of mA and/or kV according to thepatient's size, and use of iterative reconstruction technique. TECHNIQUE: Axial images were obtained from the christopher magnum to the vertex. FINDINGS: There is a ventriculostomy catheter entering from the right frontalregion with the tip in the anterior right lateral ventricle. The ventricles aredecompressed. Left-sided ventriculostomy catheters seen previously is no longerpresent. There is no intracranial bleed, mass effect, or shift. IMPRESSION: No acute intracranial abnormalities. Electronically signed in [id number] by: Emili Arndt M.D. 11/23/2019 8:31 EDT Name Value Range Interpretation Code Description Data [facility](s) Supporting Document(s) ID Date Data Source [id number] 11/22/2019 11:45:00 PM EDT [facility] TSYSORDER [id number] Name Value Range Interpretation Code Description Data Shelbi rce(s) Supporting Document(s) URINE AMPHETAMINES NEGATIVE <1000 ng/mL [facility] pital THC,URINE NEGATIVE <50 ng/mL [facility] URINE BARBITURATES NEGATIVE <300 ng/mL [facility] ital PCP,URINE NEGATIVE <25 ng/mL [facility] COCAINE, URINE NEGATIVE <300 ng/mL [facility] URINE,OPIATES POSITIVE <300 ng/mL H [facility] URINE,TCA NEGATIVE <1000 ng/mL [facility] IF A NEGATIVE RESULT IS OBTAINED AND ING ESTION OF TRICYCLICANTIDEPRESSANTS IS SUSPECTED, A SERUM SAMPLE SHOULD BEOBTAINED AND TESTED USING AN APPROPRIATE METHOD. URINE BENZODIAZEPINES NEGATIVE <300 ng/mL [facility] ospital THESE TESTS ARE PERFORMED USING AN IMMU NOASSAY FOR THEQUALITATIVE DETERMINATION OF THE PRESENCE OF THE MAJORMETABOLITES OF DRUGS OF ABUSE. THESE TESTS ARE ONLY ASCREENING AND NOT CONFIRMATORY. CLINICAL CONSIDERATION ANDPROFESSIONAL JUDGMENT MUST BE APPLIED TO ANY DRUG OF ABUSETEST RESULT. ID Date Data Source [id number] 11/22/2019 11:27:00 PM EDT [facility] TSYSORDER [id number] Name Value Range Interpretation Code Description Data Shelbi rce(s) Supporting Document(s) HCG URINE NEGATIVE NEGATIVE [facility] ID Date Data Source [id number] 11/22/2019 11:36:00 PM EDT [facility] TSYSORDER [id number] Name Value Range Interpretation Code Description Data Shelbi rce(s) Supporting Document(s) GLUCOSE 90 mg/dL 74-106 [facility] BLOOD UREA NITROGEN 11 mg/dL 7-18 [facility] ital CREATININE 0.9 mg/dL 0.6-1.0 [facility] SODIUM 138 mmol/L 136-145 [facility] POTASSIUM 4.2 mmol/L 3.5-5.1 [facility] CHLORIDE 102 mmol/L 98-107 [facility] CO2 23 mmol/L 21-32 [facility] CALCIUM 8.8 mg/dL 8.5-10.1 [facility] ANION GAP 13.0 mmol/L 5-[address] [facility] GLOMERULAR FILTRATION RATE 75 mL/min [facility] GFR IS CALCULATED IN mL/min/1.73m2 JESICA L FUNCTION: >90MILDLY DECREASED: 60-89MILDY TO MODERATELY DECREASED: 45-59 MODERATELY TO SEVERELY DECREASED: 30-44SEVERELY DECREASED: 15-29RENAL FAILURE: <15 AST 43 U/L 15-[address] [facility] ALT 55 U/L 12-78 [facility] ALKALINE PHOSPHATASE 85 U/L 46-116 [facility] TOTAL BILIRUBIN 0.5 mg/dL 0.2-1.0 [facility] TOTAL PROTEIN 7.7 g/dl 6.4-8.2 [facility] ALBUMIN 4.3 gm/dL 3.4-5.0 [facility] ID Date Data Source [id number] 11/22/2019 11:16:00 PM EDT [facility] TSYSORDER [id number] Name Value Range Interpretation Code Description Data Shelbi rce(s) Supporting Document(s) WHITE BLOOD COUNT 10.7 K/mm3 4.0-10.0 [facility] RED BLOOD COUNT 4.46 M/mm3 4.00-5.50 [facility] HEMOGLOBIN 13.7 gm/dL 12.0-16.0 [facility] HEMATOCRIT 41.4 % 36.0-48.8 [facility] MEAN CELL VOLUME 92.8 fl 80-96 [facility] MEAN CORPUSCULAR HEMOGLOBIN 30.7 pg 27.0-31.0 [facility] MEAN CORPUSCULAR HGB CONC 33.1 g/dl 32.0-36.0 [facility] RED CELL DISTRIBUTION WIDTH 12.3 % 10.0-14.5 [facility] PLATELET COUNT 326 K/mm3 172-450 [facility] MEAN PLATELET VOLUME 9.3 fl 9.0-13.0 [facility] % 67.0 % 50-80.0 [facility] IG% 0.5 % 0.0-0.[address] [facility] LYMPH % 23.3 % 25.0-50.[address] [facility] MONO % 8.0 % 2.0-10.0 [facility] EOS % 1.0 % 0-5.0 [facility] BASO % 0.2 % 0.0-2.0 [facility] GRAN # 7.2 K/mm3 2.0-8.00 [facility] IG# 0.1 K/mm3 0.0-0.2 [facility] LYMPH # 2.5 K/mm3 1.0-5.0 [facility] MONO # 0.9 K/mm3 0.10-1.20 [facility] EOS # 0.1 K/mm3 0.0-0.5 [facility] BASO # 0.0 K/mm3 0.0-0.2 [facility] ID Date Data Source [id number] 09/20/2019 06:54:00 PM EDT [facility] DATE OF EXAMINATION: CERV SPINE W/O CON TRAST INDICATION: Trauma, pain COMPARISON: None TECHNIQUE: Axial images were obtained from the skull base through the thoracicinlet. Sagittal and coronal reconstructions were made. Intravenous contrast wasnot utilized for this examination. One or more of the following dose reduction techniques were utilized ineffectively lowering the radiation dose for this examination: Automated ExposureControl, Adjustment of the mA and/or kV according to patient size, or Iterativereconstruction. FINDINGS: There is no fracture identified. No evidence for subluxation of vertebral bodies or their articulating facets. No significant degenerativechange is seen in the disc spaces. No evidence for spinal stenosis. Shuntcatheter tubing is visualized within the soft tissues. IMPRESSION: Negative cervical spine CT scan. Electronically signed in PS360 by: Emili Arndt M.D. 09/20/2019 18:49 EDT Name Value Range Interpretation Code Description Data Shelbi rce(s) Supporting Document(s) ID Date Data Source [id number] 09/20/2019 06:54:00 PM [facility] DATE OF EXAMINATION: 09/16/2019 18:01 EDT CHEST W/O IV CONTRAST CLINICAL STATEMENT: Trauma, pain TECHNIQUE: CT of the chest was performed without intravenous contrast. [place] coronal reformats were obtained. One or more of the following dose reduction techniques were utilized ineffectively lowering the radiation dose for this examination: Automated ExposureControl, Adjustment of the mA and/or kV according to patient size, or Iterativereconstruction. COMPARISON: None FINDINGS: No significant axillary, mediastinal, or hilar lymphadenopathy is seen. Thereare no pleural or pericardial effusions. The trachea and central bronchi arepatent. The lungs are clear. No pulmonary nodule is identified. Shunt catheter tubing isvisualized in the soft tissues of the anterior chest wall. The visualized portions of the upper abdomen appear unremarkable. The visualizedosseous structures are intact. IMPRESSION: No acute injury Electronically signed in PS360 by: Emili Arndt M.D. 09/20/2019 18:49 EDT Name Value Range Interpretation Code Description Data Shelbi rce(s) Supporting Document(s) ID Date Data Source [id number] 09/17/2019 12:55:00 AM EDT [facility] Patient: NIMA DIAZ Observation Re port - Physicians/[facility].VisitID: [id number] [place] [address] [phone], FRegistration Date/Time: 09/16/2019 16:08 Weight:104.3 kg (S). Height/Length:62 inches (S). BMI:42.1 PAST HISTORYMedications:HYDROcodone-Acetaminophen Oral (Tablet 5-325 mg) 1 tablet, every 3 hours , last dose this am .tiZANidine HCl Oral (Tablet 4 mg) 1 tablet, q6h, last dose this am.Hyoscyamine Sulfate Oral (Tablet 0.125 mg) 1 tablet, q4h, last dose this am .Ascorbic Acid Oral (Tablet 500 mg) 1 tablet, 2x a day, last dose this am .Ferrous Sulfate Oral (Tablet 325 (65 Fe) mg) 1 tablet, 2x a day, last dose this am .MetFORMIN HCl Oral 850mg, 2x a day every AM, last dose this am .PROzac Oral (Capsule 40 mg) 1 capsule, daily, last dose this am.Topamax Oral (Tablet 200 mg), 2x a day, last dose this am .Zofran ODT Oral 4mg, daily as needed, last dose this am . Allergies:enoxaparin.(hives)Sulfa (Sulfonamide Antibiotics). Severe(Anaphylaxis)Tape.(rash). FAMILY HISTORYNo significant family medical history. (Electronically signed by Amol Kennedy P.A. 09/17/2019 00:13) Name Value Range Interpretation Code Description Data [facility] rce(s) Supporting Document(s) ID Date Data Source [id number] 09/16/2019 07:15:00 PM EDT [facility] DATE OF EXAMINATION: 09/16/2019 18:01 EDT BRAIN W/O CONTRAST INDICATION: Trauma, pain This CT exam was performed using the following dose reduction techniques:Automated exposure control, adjustment of mA and/or kV according to thepatient's size, and use of iterative reconstruction technique. COMPARISON: None.There are bilateral ventriculostomy catheters entering from the frontal regions,left and right with the tips in the lateral ventricles.The basal cisterns, cortical sulci and ventricles are normal. The roa-whitematter differentiation is normal. There is no mass effect or shift. Nointracranial bl eeds. No intra or extra-axial collections. The visualizedparanasal sinuses are well aerated. IMPRESSION: No acute intracranial abnormality CERVICAL SPINE CT SCAN WITHOUT CONTRAST DATE OF EXAMINATION: 09/16/2019 18:01 EDT CERVICAL SPINE W/O CONTRAST INDICATION: Trauma, pain COMPARISON: None TECHNIQUE: Axial images were obtained from the skull base through the thoracicinlet. Sagittal and coronal reconstructions were made. Intravenous contrast wasnot utilized for this examination. One or more of the following dose reduction techniques were utilized ineffectively lowering the radiation dose for this examination: Automated ExposureControl, Adjustment of the mA and/or kV according to patient size, or Iterativereconstruction. FINDINGS: There is no fracture identified. No evidence for subluxation ofvertebral bodies or their articulating facets. No significant degenerativechange is seen in the disc spaces. No evidence for spinal stenosis. Shuntcatheter tubing is visualized within the soft tissues. IMPRESSION: Negative cervical spine CT scan. CT CHEST WITHOUT CONTRAST DATE OF EXAMINATION: 09/16/2019 18:01 EDT BRAIN W/O CONTRAST CLINICAL STATEMENT: Trauma, pain TECHNIQUE: CT of the chest was performed without intravenous contrast. [place] coronal reformats were obtained. One or more of the following dose reduction techniques were utilized ineffectively lowering the radiation dose for this examination: Automated ExposureControl, Adjustment of the mA and/or kV according to patient size, or Iterativereconstruction. COMPARISON: None FINDINGS: No significant axillary, mediastinal, or hilar lymphadenopathy is seen. Thereare no pleural or pericardial effusions. The trachea and central bronchi arepatent. The lungs are clear. No pulmonary nodule is identified. Shunt catheter tubing isvisualized in the soft tissues of the anterior chest wall. The visualized portions of the upper abdomen appear unremarkable. The visualizedosseous structures are intact. IMPRESSION: No acute injury Electronically signed in PS360 by: Emili Arndt M.D. 09/16/2019 19:09 EDT Name Value Range Interpretation Code Description Data Shelbi rce(s) Supporting Document(s) ID Date Data Source [id number] 09/16/2019 05:25:00 PM EDT [facility] TSYSORDER [id number] Name Value Range Interpretation Code Description Data Shelbi rce(s) Supporting Document(s) HCG URINE NEGATIVE NEGATIVE [facility] ID Date Data Source [id number] 09/16/2019 05:32:00 PM EDT [facility] ital TSYSORDER [id number] Name Value Range Interpretation Code Description Data Shelbi rce(s) Supporting Document(s) URINE COLOR. [facility] URINE APPEARANCE CLEAR [facility] SPECIFIC [facility],URINE 1.020 1.001-1.035 [facility] URINE LEUKOCYTE ESTERASE NEGATIVE NEGATIVE [facility] URINE NITRATE NEGATIVE NEGATIVE [facility] PH,URINE 6.0 5.0-9.0 [facility] URINE PROTEIN NEGATIVE mg/dL NEGATIVE [facility] GLUCOSE (UA) NEGATIVE mg/dL NEGATIVE [facility] URINE KETONE NEGATIVE mg/[facility] UROBILINOGEN NORMAL(0.2-1) mg/dL 0-1 [facility] URINE BILIRUBIN NEGATIVE NEGATIVE [facility] URINE BLOOD NEGATIVE NEGATIVE [facility] ID Date Data Source [id number] 09/16/2019 05:45:00 PM EDT [facility] TSYSORDER [id number] Name Value Range Interpretation Code Description Data Shelbi rce(s) Supporting Document(s) LIPASE 118 U/L 73-393 [facility] ID Date Data Source [id number] 09/16/2019 05:45:00 PM EDT [facility] T[facility] [id number] Name Value Range Interpretation Code Description Data Shelbi rce(s) Supporting Document(s) GLUCOSE 87 mg/dL 74-106 [facility] BLOOD UREA NITROGEN 9 mg/dL 7-18 [facility] ital CREATININE 0.7 mg/dL 0.6-1.0 [facility] SODIUM 136 mmol/L 136-145 [facility] POTASSIUM 3.8 mmol/L 3.5-5.1 [facility] CHLORIDE 102 mmol/L 98-107 [facility] CO2 25 mmol/L 21-32 [facility] CALCIUM 8.5 mg/dL 8.5-10.1 [facility] ANION GAP 9.0 mmol/L 5-12 [facility] GLOMERULAR FILTRATION RATE >90 mL/min [facility] GFR IS CALCULATED IN mL/min/1.73m2 JESICA L FUNCTION: >90MILDLY DECREASED: 60-89MILDY TO MODERATELY DECREASED: 45-59 MODERATELY TO SEVERELY DECREASED: 30-44SEVERELY DECREASED: 15-29RENAL FAILURE: <15 AST 24 U/L 15-37 [facility] ALT 46 U/L 12-78 [facility] ALKALINE PHOSPHATASE 76 U/L 46-116 [facility] pital TOTAL BILIRUBIN 0.2 mg/dL 0.2-1.0 [facility] TOTAL PROTEIN 7.3 g/dl 6.4-8.2 [facility] ALBUMIN 3.6 gm/dL 3.4-5.0 [facility] ID Date Data Source [id number] 09/16/2019 05:34:00 PM EDT [facility] TSYSORDER [id number] Name Value Range Interpretation Code Description Data Shelbi rce(s) Supporting Document(s) PARTIAL THROMBOPLASTIN TIME 23.1 SECONDS 21.4-30.2 [facility] ID Date Data Source [id number] 09/16/2019 05:34:00 PM EDT [facility] TSYSORDER [id number] Name Value Range Interpretation Code Description Data Shelbi rce(s) Supporting Document(s) PROTHROMBIN TIME (PATIENT) 9.6 SECONDS 9.2-11.6 [facility] INR 0.92 0.87-1.06 [facility] ID Date Data Source [id number] 09/16/2019 04:52:00 PM [facility] TSYSORDER [id number] Name Value Range Interpretation Code Description Data Shelbi rce(s) Supporting Document(s) WHITE BLOOD COUNT 7.2 K/mm3 4.0-10.0 [facility] al RED BLOOD COUNT 4.48 M/mm3 4.00-5.50 [facility] HEMOGLOBIN 13.9 gm/dL 12.0-16.0 [facility] HEMATOCRIT 42.0 % 36.0-48.8 [facility] MEAN CELL VOLUME 93.8 fl 80-96 [facility] MEAN CORPUSCULAR HEMOGLOBIN 31.0 pg 27.0-31.0 [facility] MEAN CORPUSCULAR HGB CONC 33.1 g/dl 32.0-36.0 [facility] RED CELL DISTRIBUTION WIDTH 12.1 % 10.0-14.5 [facility] PLATELET COUNT 349 K/mm3 172-450 [facility] MEAN PLATELET VOLUME 9.5 fl 9.0-13.0 [facility] GRAN % 56.6 % 50-80.0 [facility] IG% 0.1 % 0.0-0.2 [facility] LYMPH % 31.0 % 25.0-50.0 [facility] MONO % 8.1 % 2.0-10.0 [facility] EOS % 3.6 % 0-5.0 [facility] BASO % 0.6 % 0.0-2.0 [facility] GRAN # 4.1 K/mm3 2.0-8.00 [facility] IG# 0.0 K/mm3 0.0-0.2 [facility] LYMPH # 2.2 K/mm3 1.0-5.0 [facility] MONO # 0.6 K/mm3 0.10-1.20 [facility] EOS # 0.3 K/mm3 0.0-0.5 [facility] BASO # 0.0 K/mm3 0.0-0.2 [facility] ID Date Data Source [id number] 09/15/2019 11:22:00 AM EDT [facility] [address] [place] [address] PHONE: [phone] FAX: [phone] Name .................. : JOE Knutson Acct Number.................. : [id number] ROOM. ................. : TR-05 Number ................... : [id number] Stay type ............. : E/R Discharge Date......... ... : 09/12/19 Admit Date ......... : 09/12/19 Admit Phys .................... : LADONNA CASAS Date of ....... : 1990 Family Phys ................... : UNKNOWN Phone .................. : [phone] Age ................................ : 29 Film# .................. .:[id number] Sex ................................. : F Unsigned transcriptions are preliminary reports and do not represent a medical or legal document CT HEAD W/O CONTRAST [id number] COMPLETE:09/12/19 18:16 RLB [id number] Reason(s): Head Pain CT OF THE HEAD WITHOUT CONTRAST: INDICATION: Head pain. FINDINGS: The cortical sulci and ventricles are normal in size and position. There is no acute hemorrhage, infarct, mass effect or midline shift. Bilateral ventriculoperitoneal shunts are noted from frontal approaches. There is no acute osseous abnormality. The paranasal sinuses and mastoid air cells are clear. The visualized orbits are unremarkable. IMPRESSION: No acute intracranial abnormality. While performing the above CT examination, radiation dose reduction was accomplished utilizing automated expos ure control, adjusting of the mA and kV based on the patient's body size and/or the use of imperative reconstructive techniques. CT dose: 837.7 mGycm Electronically Reviewed and Signed By Jae Goldstein M.D. , 09/15/19 11:22, [facility] Transcribe Initials: JIE , Transcribe Date: 09/12/19 21:02, Dictation Date: Copy for: PRINCESS DANIELLE via fax Copy for: EMERGENCY DEPT via [facility] Page 1 of 2 [facility] [address] [place] [address] PHONE: [phone] FAX: [phone] Name .................. : JOE Knutson Acct Number.................. : [id number] ROOM. ................. : TR-05 Number ................... : [id number] Stay type ............. : E/R Discharge Date......... ... : 09/12/19 Admit Date ......... : 09/12/19 Admit Phys .................... : VENERUS BR Date of ....... : 1990 Family Phys ................... : UNKNOWN Phone .................. : [phone] Age ................................ : 29 Film# .................. .:[id number] Sex ................................. : F Unsigned transcriptions are preliminary reports and do not represent a medical or legal document CT HEAD W/O CONTRAST [id number] COMPLETE:09/12/19 18:16 RLB [id number] Reason(s): Head Pain Copy for: 710 MED REC DISCHARGED Page 2 of 2 Name Value Range Interpretation Code Description Data Shelbi rce(s) Supporting Document(s) ID Date Data Source [id number] 09/12/2019 04:29:[address] [facility] [address] [facility] Emergency Department [address] [place] [address] Phone #: ext- [phone] 09/12/2019 16:21 Patient: NIMA DIAZ Sex: F : 1990 Age: 29yWEIGHT:107.9 kg (S) HEIGHT:62 inches (S) BMI:43.6ALLERGIES: Sulfa AntibioticsCHIEF COMPLAINT: headacheDIAGNOSIS: HeadacheLAB ORDERSOrder Description Priority Entered Acknowledged InitialedBlood Culture STAT 16:40 09/12/2019 16:56 Natalie,q10m X2 (Sched Aditya Henderson R.N.16:40 09/12/2019) PA;Blood Culture STAT 16:40 09/12/2019 16:56 [place],q10m X2 (Sched Aditya Henderson R.N.16:50 09/12/2019) PA;CBC w Diff STAT 16:40 09/12/2019 16:56 Aditya EstradaNTamara PA;CMP STAT 16:40 09/12/2019 16:56 Aditya EstradaNTamara PA;Lactic Acid STAT 16:40 09/12/2019 16:56 Aditya EstradaNTamara PA;PT/PTT STAT 16:40 09/12/2019 16:56 Aditya Estrada R.N. PA;Urinalysis (Clean STAT 16:40 09/12/2019 16:56 Natalie,Catch) Aditya ChenNTamara PA;Sed. Rate STAT 16:40 09/12/2019 16:56 Aditya Estrada R.N. PA;CRP STAT 16:40 09/12/2019 16:56 Aditya EstradaNTamara PA;Lipase STAT 16:40 09/12/2019 16:56 Aditya Estrada R.N. PA; [address] [facility] Emergency Department [address] [place] [address] Phone #: ext- [phone] 09/12/2019 16:21 [id number] Sex: F : 1990 Age: 29yDIAGNOSTIC STUDY ORDERSOrder Description Priority Entered Acknowledged InitialedCT Head W/O Cont STAT 16:40 09/12/2019 Ack'd: 16:56 17:58 Natalie,(Oxygen?(No)) Beatriz Alvarenga R.N. PA; R.N. Reason for Study: Head PainMEDICATION/IV/DRIP/FLUID ORDERSOrder Description Priority Entered Acknowledged InitialedNS IV 500 mL 16:40 09/12/2019 Ack'd: 16:57 17:05 Natalie,Bolus: : Bolus 500 Beatriz Alvarenga R.N.mL (X1) PA; R.N.Reglan 10 mg IVP 16:40 09/12/2019 Ack'd: 16:57 17:13 [place],X1 dose: 10 mg Beatriz Alvarenga R.N.(NOW x1) PA; R.N.Benadryl 25 mg IVP 16:40 09/12/2019 Ack'd: 16:57 17:06 [place],X1 dose: 25 mg Beatriz Alvarenga R.N.(NOW x1) PA; R.N.Dilaudid IVP 1 mg 16:40 09/12/2019 Ack'd: 16:57 17:09 Natalie,(HIGH ALERT Beatriz Alvarenga R.N.MEDICATION) PA; R.N.Dilaudid IVP 1 mg 18:35 09/12/2019 18:44 Natalie(HIGH ALERT Aditya Henderson R.N.MEDICATION) SREE;GENERAL ORDERSOrder Description Priority Ent ered Acknowledged Initialed[Electronically signed by Beatriz Estrada R.N. (19:10 09/12/2019)][Electronically signed by Aditya Conley (20:12 09/12/2019)][Electronically locked by Beatriz Estrada R.N. (19:10 09/12/2019)] Name Value Range Interpretation Code Description Data Shelbi rce(s) Supporting Document(s) ID Date Data Source [id number] 09/12/2019 04:29:[address] [facility] [address] [facility] Emergency Department [address] [place] [address] Phone #: ext- [phone] 09/12/2019 16:21 Patient: NIMA DIAZ Sex: F : 1990 Age: 29yWeight: 107.9 kgHeight/Length: 62 in.BMI: 43.6ALLERGIES: Sulfa AntibioticsThe patient's Home Medications are listed below:CONTINUE TAKING THE FOLLOWING MEDICATIONS: Ascorbic Acid Buffered Oral 500, 2x a day Ferrous Sulfate Oral (325 (65 Fe) mg) 1 tablet, 2x a day HYDROcodone-Acetaminophen Oral (5-325 mg), q3h , prn Hyoscyamine Sulfate Oral (0.125 mg), q4h, prn metFORMIN HCl Oral (850 mg) 1 tablet, 2x a day PROzac Oral (40 mg) 1 capsule, daily Robaxin Oral (500 mg) 2 tablets, q8h, prn tiZANidine HCl Oral 4 mg, q6h, prn Topamax Oral (200 mg) 1 tablet, 2x a day Zofran Oral (4 mg) 1 tablet, prnThe source(s) of the original Home Medication information:patientThe following Medications were given to the patient in the Emergency Department:NS [IV] IV Fluids bolus 500 mL wide open, administered: 09/12/2019 5:05:00 PMBenadryl [IVP] IVP 25 mg diluted in NS 10 mL, administered: 09/12/2019 5:05:00 PM [address] [facility] Emergency Department [address] [place] [address] Phone #: ext- [phone] 09/12/2019 16:21 Patient: NIMA DIAZ Sex: F : 1990 Age: 29yDilaudid [IVP] IVP 1 mg diluted in NS 10 mL, administered: 09/12/2019 5:09:00 PMReglan [IVP] IVP 10 mg diluted in NS 10 mL, administered: 09/12/2019 5:13:00 PMDilaudid [IVP] IVP 1 mg diluted in NS 10 mL, administered: 09/12/2019 6:43:00 PMThe following Medications were prescribed to the patient:None. Name Value Range Interpretation Code Description Data Shelbi rce(s) Supporting Document(s) ID Date Data Source [id number] 09/12/2019 04:29:[address] [facility] [address] [facility] Emergency Department [address] [place] [address] Phone #: ext- [phone] 09/12/2019 16:21 Patient: NIMA DIAZ Sex: F : 1990 Age: 29yWeight: 107.9 kgHeight/Length: 62 inBMI: 43.6ALLERGIES: Sulfa Antibiotics Date/Time Medication Administered Medication OrderedStart NS [IV] NS IV 500 mL Bolus: : Bolus 12704:05 09/12/2019 Dose: IV Fluids mL (X1)Beatriz Estrada R.N. Bolus: 500 mL wide open---- Dispensed: 1000 mL bagSto p Site: #1 left yxoonqt63:02 09/12/2019Beatriz Estrada R.N.Given REGLAN [IVP] (METOCLOPRAMIDE Reglan 10 mg IVP X1 dose: 10 mg17:13 09/12/2019 HCL) (NOW x1)Beatriz Estrada R.N. Dose: 10 mg IVP In: NS 10 mL Site: #1 left forearmGiven BENADRYL [IVP] (DIPHENHYDRAMINE Benadryl 25 mg IVP X1 dose: 2517:05 09/12/2019 HCL) mg (NOW x1)Beatriz Estrada R.N. Dose: 25 mg IVP In: NS 10 mL Site: #1 left forearmGiven DILAUDID [IVP] (HYDROMORPHONE Dilaudid IVP 1 mg (HIGH ALERT17:09 09/12/2019 HCL) MEDICATION)Beatriz Estrada R.N. Dose: 1 mg IVP In: NS 10 mL Site: #1 left forearmGiven DILAUDID [IVP] (HYDROMORPHONE Dilaudid IVP 1 mg (HIGH ALERT18:43 09/12/2019 HCL) MEDICATION)Beatriz Estrada R.N. Dose: 1 mg IVP In: NS 10 mL Site: #1 left forearm Name Value Range Interpretation Code Description Data Shelbi rce(s) Supporting Document(s) ID Date Data Source [id number] 09/12/2019 04:29:[address] [facility] [address] [facility] Emergency Department [address] [place] [address] Phone #: ext- [phone] 09/12/2019 16:21 Patient: NIMA DIAZ Sex: F : 1990 Age: 29yChronic migraine, tension and periodic headache syndrome with hemiplegia- resistant to treatment. Nostatus migrainosus.INSTRUCTIONSWarnings: GENERAL WARNINGS: Return or contact your physician immediately if your conditionworsens or changes unexpectedly, if not improving as expected, or if other problems arise.SPECIFICALLY, return if you develop fever; or if there is no improvement in the vomiting.Your Current Medications: Your current home medications have been reviewed.CONTINUE TAKING THE FOLLOWING MEDICATIONS:Ascorbic Acid Buffered Oral : 500 2x a day.Ferrous Sulfate Oral : Tablet 325 (65 Fe) mg, 1 tablet 2x a day.HYDROcodone-Acetaminophen Oral : Tablet 5-325 mg, q3h, prn.Hyoscyamine Sulfate Oral : Tablet 0.125 mg, q4h, prn.metFORMIN HCl Oral : Tablet 850 mg, 1 tablet 2x a day.PROzac Oral : Capsule 40 mg, 1 capsule daily.Robaxin Oral : Tablet 500 mg, 2 tablets q8h, prn.tiZANid ine HCl Oral : 4 mg q6h, prn.Topamax Oral : Tablet 200 mg, 1 tablet 2x a day.Zofran Oral : Tablet 4 mg, 1 tablet, prn.Follow-up:Follow up with your doctor tomorrow. Call for an appointment. Reason for referral: evaluation andtreatment. Summary of care provided to patient.Understanding of the discharge instructions verbalized by patient. ADDITIONAL INFORMATIONMigraine HeadacheThis often severe type of headache is different from other types of headaches in that symptoms otherthan pain occur with the headache. Nausea and vomiting, lightheadedness, sensitivity to light(ph otophobia), and other visual disturbances are common migraine symptoms. The pain may lastfrom a few hours to several days. It is not clear why migraines occur but certain factors called"triggers" can raise the risk of having a migraine attack. A migraine may be triggered by emotional [address] [facility] Emergency Department [address] [place] [address] Phone #: ext- [phone] 09/12/2019 16:21 [id number] Sex: F : 1990 Age: 29ystress or depression, or by hormone changes during the menstrual cycle. Other triggers include birthcontrol pills, overuse of migraine medicines, alcohol or caffeine, foods with tyramine (such as agedcheese and wine), eyestrain, weather changes, missed meals, or too little or too much sleep.Home careFollow these tips when taking care of yourself at home: Don't drive yourself home if you were given pain medicine for your headache or are having visual symptoms. Instead, have someone else drive you home. Try to sleep when you get home. You should feel much better when you wake up. Cold can help ease migraine symptoms. Put an ice pack on your forehead or at the base of your skull. Put heat on the back of your neck to help ease any neck spasm. Drink only clear liquids or eat a light diet until your symptoms get better. This will help you avoid nausea and vomiting.How to prevent migrainesPay attention to what seems to trigger your headache. Try to avoid the triggers when you can. If youhave frequent headaches, consider keeping a headache diary. In it, write down what you were doing,feeling, or eating in the hours before each headache. Show this to your healthcare provider to helpfind the cause of your headaches.If stress seems to be a trigger for your headaches, figure out what is causing stress in your life. Learnnew ways to handle your stress. Ideas include regular exercise, biofeedback, self-hypnosis, yoga,and meditation. Talk with your healthcare provider to find out more information about managingstress. Many books and digital media are also available on this subject.Tyramine is a substance found in many foods. It can trigger a migraine in some people. These foodscontain tyramine: Chocolate Yogurt All cheeses, but especially aged cheeses Smoked or pickled fish and meat, including blanco, caviar, bologna, pepperoni, and salami Liver Avocados Bananas [address] [facility] [address] [place] [address] Phone #: ext- [phone] 09/12/2019 16:21 Patient: NIMA DIAZ Sex: F : 1990 Age: 29y Figs Adrianne Red wineTry staying away from these foods for 1 to 2 months to see if you have fewer headaches.How to treat future headaches Take time out at the first sign of a headache, if possible. Find a quiet, dark, comfortable place to sit or lie down. Let yourself relax or sleep. Put an ice pack on your forehead or on the area of greatest pain. A heating pad and massage may help if you are having a muscle spasm and tightness in your neck. If you have been prescribed a medicine to stop a migraine headache, use this at the first warning sign of the headache for best results. First signs may be an aura or pain. If you need to take medicine often for your migraine, talk with your healthcare provider about other ways to prevent your headaches.Follow-up careFollow up with your healthcare provider, or as advised. Talk with your provider if you have frequentheadaches. He or she can figure out a treatment plan. Ask if you can have medicine to take at homethe next time you get a bad headache. This may keep you from having to visit the emergencydepartment in the future. You may need to see a headache specialist (neurologist) if you continue tohave headaches.When to seek medical adviceCall your healthcare provider right away if any of these occur: Your head pain gets worse, or doesn't get better within 24 hours You can't keep liquids down (repeated vomiting) Pain in your sinuses, ears, or throat Fever of 100.4 F (38 C) or higher, or as directed by your healthcare provider Stiff neck Extreme drowsiness, confusion, or fainting Dizziness, or dizziness with spinning sensation (vertigo) [address] [facility] [address] [place] [address] Phone #: ext- [phone] 09/12/2019 16:21 Patient: NIMA DIAZ Sex: F : 1990 Age: 29y Weakness in an arm or leg, or on one side of your face Difficulty talking or seeing [id number] [employer]. [address] [place] [address], [place] [address]. All rights reserved. This information is not intended as asubstitute for professional medical care. Always follow you r healthcare professional's instructions. You have been given the following additional information: Headache, Migraine, Classic(Electronically signed by SREE Martinez 09/12/2019 20:12) Name Value Range Interpretation Code Description Data Shelbi rce(s) Supporting Document(s) ID Date Data Source [id number] 09/12/2019 04:29:[address] [facility] 1 Clinical Report - Nurses [facility] [address] [place] [address] Phone #: ext- [phone] 09/12/2019 16:21 Patient: NIMA DIAZ Sex: F : 1990 Age: 29yTRIAGEArrived by private vehicle. Historian: patient. Accompanied by spouse.Triage time: 16:24 09/12/2019. Acuity: LEVEL 3.Chief Complaint: (Headache/vomiting).Alert. No acute distress.Onset. (3 months ago). ( Pt has pmh of idiopathic intracranial hypertension; Pt has had multiple VPshunts with multiple revisions. Pt has preop at [facility] on [facility]/21 for revision of left MANUAL EQUIPMENT MECHANIC shunt with astent her her groin into the ventricles. Pt states "my ventricles keep collapsing". 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 (16:29 09/12/2019).CATRACHITA COMA SCORE: 15- eyes open- spontaneous (4); best verbal response- oriented (5); bestmotor response- obeys commands (6). --16:34 09/12/19 Beatriz Estrada R.N.16:24 09/12/19. BP: 102/78. MAP: 86. HR: 64. RR: 21. O2 saturation: 100% on room air. Temp: 98.1 F(oral). Pain level now 12/12. --16:34 09/12/19 Beatriz Estrada R.N.Weight: 107.9 kg stated. Height/Length: 62 inches Per Patient. BMI: 43.6. --16:23 09/12/19 Beatriz Estrada R.N.MedicationsAscorbic Acid Buffered Oral 500, 2x a day. Ferrous Sulfate Oral (Tablet 325 (65 Fe) mg) 1 tablet, 2x a day. metFORMIN HCl Oral (Tablet 850 mg) 1 tablet, 2x a day. PROzac Oral (Capsule 40 mg) 1 capsule, daily. Topamax Oral (Tablet 200 mg) 1 tablet, 2x a day. --16:30 09/12/19 Beatriz Estrada R.N. Zofran Oral (Tablet 4 mg) 1 tablet, as needed. --16:30 09/12/19 Beatriz Estrada R.N. Robaxin Oral (Tablet 500 mg) 2 tablets, q8h as needed. --16:31 09/12/19 Beatriz Estrada R.N. Hyoscyamine Sulfate Oral (Tablet 0.125 mg), q4h as needed. --16:31 09/12/19 Beatriz Estrada R.N. tiZANidine HCl Oral 4 mg, q6h as needed. --16:31 09/12/19 Beatriz Estrada R.N. HYDROcodone-Acetaminophen Oral (Tablet 5-325 mg), q3h as needed. --16:32 09/12/19 Beatriz Estrada R.N.Allergies 2 Clinical Report - Nurses [facility] [address] [place] [address] Phone #: ext- [phone] 09/12/2019 16:21 Patient: NIMA DIAZ Sex: F : 1990 Age: 29ySulfa Antibiotics. --16:32 09/12/19 Beatriz Estrada R.N.Medication/allergy information source: the patient. --16:34 09/12/19 Beatriz Estrada R.N.ADDITIONAL SURGERIES:Appendectomy.Cholecystectomy.Excision ganglion cyst (bl wrist).Excision of lipoma.Exploratory laparotomy.Intracranial shunt [06/13/2018]. (Left side).Laparotomy.Lp shunt removal.Nasal septal deviation repair.Sinus Surgery.Spinal shunt surgery.Tonsillectomy.Ventriculo Peritoneal Shunt Surgery [07/2015].MANUAL EQUIPMENT MECHANIC shunt. --16:32 09/12/19 Beatriz Estrada R.N.HistoryPAST MEDICAL HX: Immunizations: up-to-date. Last normal menstrual period was 1 week ago.SOCIAL HX: Never smoker. No alcohol use or drug use. The patient was offered HIV testing butdeclined. Patient education was provided. The patient was offered hepatitis C testing but declined. Patienteducation was provided. The patient has not traveled outside the [place]Infectious disease exposure: No infectious disease exposure. Patient is not a known carrier of tuberculosis,hepatitis, HIV, MRSA or VRE. Patient is not a known carrier of CRE.SELF HARM ASSESSMENT: Self harm assessment was performed. The patient answered "no" to thequestion(s) "Do you have thoughts of harming or killing yourself?" and "Do you have a plan for harming orkilling yourself?".ABUSE ASSESSMENT: Abuse assessment. The patient had positive responses to the question(s) "Do youfeel safe in your home?". Abuse denied. No suspicion of abuse. No report of abuse.FUNCTIONAL ASSESSMENT: Functional assessment: no impairments noted.LEARNING NEEDS ASSESSMENT: The learning needs assessment revealed no barriers.FALL RISK ASSESSMENT: Fall risk assessment completed. No risk factors identified.SKIN INTEGRITY ASSESSMENT: Skin integrity risk assessment completed. No skin integrity riskidentified. --16:34 09/12/19 Beatriz Estrada R.N. 3 Clinical Report - Nurses [facility] [address] [place] [address] Phone #: ext- [phone] 09/12/2019 16:21 Patient: NIMA DIAZ Sex: F : 1990 Age: 29y Interventions Identification band on patient. --16:34 09/12/19 Beatriz Estrada R.N.PHYSICAL ASSESSMENTGENERAL / NEURO / PSYCH: Alert. Oriented X 4. ( neuro checks WNL; Pt states pain to left parietalregion, no warmth noted; Pt also c/o left sided cervical pain, worse on palpation.).HEENT: Pupils equal, round and reactive to light. No facial asymmetry noted. Mucous membranes arepink.RESPIRATORY: Respirations not labored. Breath sounds within normal limits.CVS: Capillary refill less than 2 seconds. Pulses within normal limits.GI / : ( Pt states "I lost count of how many times i threw up after 16"; Pt states 6 episodes of diarrhea).Abdominal tenderness in the right lower quadrant.SKIN: Skin is warm and dry. Normal skin turgor. --16:38 09/12/19 Beatriz Estrada R.N.NURSING PROGRESS NOTESNIBP monitor and pulse oximeter placed on patient; monitor alarms on. Patient gowned. Reassurancegiven. Three patient identifiers checked. Call light placed in reach. Side rails up x 2. Bed placed inlowest position. Brakes of bed on. Patient ready for evaluation- PA notified. --16:38 09/12/19 Beatriz Estrada R.N. 16:56 09/12/2019 Site #1 started via IV in the left forearm with an 20g angiocath, with aseptic technique and good blood return; one attempt. Blood drawn: rainbow set and cultures x1. Labeled in the presence of the patient and sent to the lab. Saline lock flushed with 10 mL saline. --16:56 09/12/19 Beatriz Estrada R.N. Patient ID band checked for patient name and birthdate: patient confirmed. Instructions provided to collect clean catch urine and patient verbalized understanding. Clean catch urine collected; sample sent to lab for urinalysis. Specimen labeled in the presence of the patient. --16:56 09/12/19 Beatriz Estrada R.N. 17:09/12/2019 Started bag #1 1000 mL IV Fluids NS; bolus of 500 mL wide open via site #1 via IV pump. Allergies verified and confirmed 5 rights. IV patency established. IV site checked: no pain, redness, or swelling. IV flushed thoroughly pre- and post- medication administration. Information reviewed with patient including reason for taking this medication, signs of allergic reaction and precautions. Verbaliz es understanding. --17:09/12/19 Beatriz Estrada R.N. 17:09/12/2019 Benadryl (diphenhydrAMINE HCl) IVP 25 mg given diluted in NS 10mL over 4 minute(s) via site #1. Allergies verified and confirmed 5 rights. IV patency established. IV site checked: no pain, redness, or swelling. IV flushed thoroughly pre- and post-medication administration. IVP given by RN. Information reviewed with patient including reason for taking this medication, signs of allergic reaction, precautions and sedative warning. Verbalizes understanding. --17:09/12/19 Beatriz Estrada R.N. 17:09/12/19. BP: 114/83. HR: 60. RR: 21. O2 saturation: 100%. --17:09/12/19 Beatriz Estrada R.N. 4 Clinical Report - Nurses [facility] [address] [place] [address] Phone #: ext- [phone] 09/12/2019 16:21 Patient: NIMA DIAZ Sex: F : 1990 Age: 29y17:09/12/2019 Dilaudid (HYDROmorphone HCl) IVP 1 mg given diluted in NS 10mL over 4 minute(s)via site #1. Allergies verified and confirmed 5 rights. IV patency established. IV site checked: no pain,redness, or swelling. IV flushed thoroughly pre- and post-medication administration. IVP given by RN.Information reviewed with patient including reason for taking this medication, signs of allergic reaction,precautions and sedative warning. Verbalizes understanding. --17:09/12/19 Beatriz Estrada R.N.17:13 09/12/2019 Reglan (Metoclopramide HCl) IVP 10 mg given diluted in NS 10mL over 5 minute(s) viasite #1. Allergies verified and confirmed 5 rights. IV patency established. IV site checked: no pain, redness,or swelling. IV flushed thoroughly pre- and post-medication administration. IVP given by RN. Informationreviewed with patient including reason for taking this medication, signs of allergic reaction and precautions.Verbalizes understanding. --17:13 09/12/19 Beatriz Estrada R.N.17:43 09/12/2019 IV Fluids NS via IV site #1 Rate Changed: bag #1 decreased to 100 mL/hr via IV pump.Confirmed 5 Rights. IV patency established. IV site checked: no pain, redness, or swelling. IV flushedthoroughly. (Verbal order per PA). --17:43 09/12/19 Beatriz Estrada R.N.17:43 09/12/2019 Benadryl IVP Response: no adverse reaction pain is improving. Symptoms haveimproved the patient feels better. --17:43 09/12/19 Beatriz Estrada R.N.17:43 09/12/2019 Dilaudid IVP Response: no adverse reaction pain is improving. Symptoms haveimproved the patient feels better. --17:43 09/12/19 Beatriz Estrada R.N.17:43 09/12/2019 Reglan IVP Response: no adverse reaction symptoms have improved the patient feelsbetter. --17:43 09/12/19 Beatriz Estrada R.N.17:30 09/12/19. BP: 111/76. MAP: 87. HR: 63. RR: 16. O2 saturation: 95%. --17:43 09/11 Beatriz Estrada R.N.The patient reports no complaints and she is calm, resting quietly and sleeping. ( Pt sleepingintermittently, states she feels better, nausea is currently gone.). --17:43 09/12/19 Beatriz Estrada R.N.Patient transported to NE by wheelchair with materials technician. --17:58 09/12/19 Beatriz Estrada R.N.Patient returned from radiology by wheelchair with materials technician. --18:08 09/12/19 Beatriz Estrada R.N.18:08 09/12/19. BP: 109/65. MAP: 79. HR: 78. RR: 18. O2 saturation: 96% on room air. Pain level now:09/11. --18:09 09/12/19 Beatriz Estrada R.N.The patient reports no complaint s and she is calm and resting quietly. --18:09 09/12/19 Beatriz Estrada R.N.18:42 09/12/19. HR: 60. RR: 18. O2 saturation: 98%. Pain level now 11/12. --18:43 09/12/19 Beatriz Estrada R.N. 5 Clinical Report - Nurses [facility] [address] [place] [address] Phone #: ext- [phone] 09/12/2019 16:21 [id number] Sex[facility] F : 1990 Age: 29y Rounding: Pain: assessed pain level. Proximity of possessions / care items: call light within easy reach. Set expectations: advised patient of rounding protocol timing and asked if they needed anything else at this time. The patient is calm and resting quietly. ( pt states pain returning; pt medicated). --18:43 09/12/19 Beatriz Estrada R.N. 18:43 09/12/2019 Dilaudid (HYDROmorphone HCl) IVP 1 mg given diluted in NS 10mL over 4 minute(s) via site #1. Allergies verified and confirmed 5 rights. IV patency established. IV site checked: no pain, redness, or swelling. IV flushed thoroughly pre- and post-medication administration. IVP given by RN. Information reviewed with patient including reason for taking this medication, signs of allergic reaction, precautions and sedative warning. Verbalizes understanding. --18:44 09/12/19 Beatriz Estrada R.N. 18:44 09/12/19. BP: 106/72. HR: 60. RR: 18. O2 saturation: 98%. Pain level now 11/12. --18:44 09/12/19 Beatriz Estrada R.N. 19:02 09/12/2019 IV Fluids NS via IV site #1 Discontinued: bag #1 STOPPED upon discharge. Total amount infused: 614 mL. IV patency established. IV site checked: no pain, redness, or swelling. IV flushed thoroughly. --19:02 09/12/19 Beatriz Estrada R.N. 19:02 09/12/2019 Dilaudid IVP Response: no adverse reaction pain is improving. Symptoms have improved the patient feels better. --19:02 09/12/19 Beatriz Estrada R.N. The patient reports no complaints and she is calm and resting quietly. Overall patient status is improved- she states feels better. --19:04 09/12/19 Beatriz Estrada R.N. 18:30 09/12/19. BP: 104/60. MAP: 74. HR: 69. O2 saturation: 96%. --19:09/12/19 Beatriz Estrada R.N. 19:00 09/12/19. BP: 102/61. MAP: 74. HR: 60. O2 saturation: 98%. --19:09/12/19 Beatriz Estrada R.N.DISPOSITION / DISCHARGE 19:02 09/12/19. BP: 104/59. MAP: 74. HR: 66. RR: 18. O2 saturation: 98% on room air. Temp: 97.3 F (oral). Pain level now 09/11. --19:03 09/12/19 Beatriz Estrada R.N. 19:09/12/2019 Site #1 removed upon discharge. Bandage applied (2x2 and tape, no bleeding noted, pt tolerated well, clean dry and intact upon d/c.). --19:08 09/12/19 Beatriz Estrada R.N. Departure time: late entry - 19:09/12/2019. Condition at departure: stable. No learning barriers present. Discharge instructions provided and reviewed with the patient. Reviewed warnings (please see paper copy). Patient verbalized understanding. Written instructions provided in Omani. The patient was discharged by the physician multimedia production assistant. She was discharged home and accompanied by spouse. She left ambulatory and via private vehicle. Spouse driving. --19:09 09/12/19 Beatriz Estrada R.N. 6 Clinical Report - Nurses [facility] [address] [place] [address] Phone #: ext- [phone] 09/12/2019 16:21 Patient: NIMA DIAZ Sex: F : 1990 Age: 29yLocked/Released at 09/12/2019 19:10 by Beatriz Estrada R.N. Name Value Range Interpretation Code Description Data Shelbi e(s) Supporting Document(s) ID Date Data Source [id number] 09/12/2019 04:29:[address] [facility] 1 Clinical Report - Physicians/Mid Levels [facility] [address] [place] [address] Phone #: ext- [phone] 09/12/2019 16:21 Patient: NIMA DIAZ Sex: F : 1990 Age: 29y Time Seen: 16:35 09/12/2019. Arrived- By private vehicle. Historian- patient.HISTORY OF PRESENT ILLNESS Chief Complaint: HEADACHE. vomiting. Is still present. This started today 0230 AM. It was abrupt in onset and has been constant. It is described as similar to previous headaches and "pain". Located in the left hemicranial and left parietal region and has had neck pain. The patient has had nausea and vomiting. No preceding symptoms, blurred vision, photophobia, numbness or weakness. Similar symptoms previously. Patient has had similar symptoms many times. Recent medical care: The patient was seen recently at this facility. Not seen in the emergency department.REVIEW OF SYSTEMSLast normal menstrual period- 1 weeks ago. No fever, muscle aches, sinus pressure, ear pain or sorethroat. No carbon monoxide exposure, tick bite, chest pain, difficulty breathing or cough. No abdominalpain, diarrhea, pain with urination, skin rash or enlarged lymph nodes. No back pain.PAST HISTORYHistory of chronic headaches. Additional Surgeries: Appendectomy. Cholecystectomy. Excision ganglion cyst (bl wrist). Excision of lipoma. Exploratory laparotomy. Intracranial shunt [06/13/2018]. Laparotomy. Lp shunt removal. Nasal septal deviation repair. Sinus Surgery. Spinal shunt surgery. Tonsillectomy. Ventriculo Peritoneal Shunt Surgery [07/2015]. 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 Medications: HYDROcodone- Acetaminophen Oral (Tablet 5-325 mg), q3h as needed. tiZANidine HCl Oral 4 mg, q6h as needed. Hyoscyamine Sulfate Oral (Tablet 0.125 mg), q4h as needed. 2 Clinical Report - Physicians/Mid Levels [facility] [address] [place] [address] Phone #: ext- [phone] 09/12/2019 16:21 Patient: NIMA DIAZ Sex: F : 1990 Age: 29y Robaxin Oral (Tablet 500 mg) 2 tablets, q8h as needed. Zofran Oral (Tablet 4 mg) 1 tablet, as needed. Ascorbic Acid Buffered Oral 500, 2x a day. Ferrous Sulfate Oral (Tablet 325 (65 Fe) mg) 1 tablet, 2x a day. metFORMIN HCl Oral (Tablet 850 mg) 1 tablet, 2x a day. PROzac Oral (Capsule 40 mg) 1 capsule, daily. Topamax Oral (Tablet 200 mg) 1 tablet, 2x a day. Allergies: Sulfa Antibiotics.SOCIAL HISTORYNever smoker. No alcohol use or drug use.PHYSICAL EXAMVital Signs: 09/12/2019 16:24 BP: 102/78. MAP: 86. HR: 64. RR: 21. O2 saturation: 100% on room air.Temp: 98.1 F. Have been reviewed as normal. Oxygen saturation normal.Appearance: Alert. No acute distress.Eyes: Pupils equal, round and reactive to light. Eyes normal inspection.ENT: Ears normal. Nose normal. Pharynx normal.Neck: Normal inspection. Neck supple.CVS: Normal heart rate. Heart sounds normal.Respiratory: No respiratory distress. Painless inspiration. Breath sounds normal.Abdomen: Soft. Mild tenderness in the right upper quadrant. No organomegaly.Back: Normal inspection.Skin: Skin warm and dry. Normal skin color. No rash. Normal skin turgor.Extremities: Extremities exhibit normal ROM. No lower extremity edema.Neuro: Oriented X 3. Alert. Mood/affect normal. Speech normal. Cranial nerves normal (as tested).No cerebellar findings. No motor deficit. No sensory deficit. Reflexes normal.LABS, X-RAYS, AND EKGCT Head: No a cute changes. The study was interpreted by the radiologist and contemporaneously byme. Interpretation time: 18:36 09/12/2019.Laboratory Tests: Laboratory tests have been ordered, with results reviewed and considered in themedical decision making process. CBC w Diff: (SOPHY: 09/12/2019 16:58) ( MsgRcvd 09/12/2019 17:20) Final results Test Result Flag Units (Reference) CBC W/AUTOMATED DIFF COMPLETE BLOOD COUNT WBC 8.4 10/uL (4.2 - 11.0) RBC 4.44 10/uL (4.20 - 5.40) HEMOGLOBIN 13.8 g/dL (12.0 - 16.0) HEMATOCRIT 42.6 % (37.0 - 47.0) MCV 95.9 fL (81.0 - 101) MCH 31.1 pg (27.0 - 34.0) MCHC 32.4 g/dL (31.0 - 36.0) RDW 12.4 % (11.5 - 14.5) 3 Clinical Report - Physicians/Mid Levels [facility] [address] [place] [address] Phone #: ext- [phone] 09/12/2019 16:21 Patient: NIMA DIAZ Sex: F : 1990 Age: 29y PLATELETS 311 10/uL (150 - 450) MPV 9.3 fL (7.4 - 10.4) NEUT 61.0 % (37.0 - 80.0) LYMPH 28.2 % (25.0 - 40.0) MONO 6.9 % (3.0 - 8.0) EOS 3.0 % (0.0 - 7.0) BASO 0.7 % (0.0 - 2.5) %IG 0.2 H % (0.0 - 0.0) %NRBC 0.0 % (0.0 - 0.0) #NEUT 5.15 10/uL (2.00 - 6.90) #LYMPH 2.38 10/uL (0.60 - 3.40) #MONO 0.58 10/uL (0.00 - 0.90) #EOS 0.25 10/uL (0.00 - 0.70) #BASO 0.06 10/uL (0.00 - 0.20) #IG 0.02 10/uL (0.00 - 0.10) #NRBC 0.00 10/uL (0.00 - 0.00) MANUAL DIFF NOT INDICATED RBC MORPH NOT INDICATEDCMP: (SOPHY: 09/12/2019 16:58) ( MsgRcvd 09/12/2019 17:28) Final results Test Result Flag Units (Reference) COMPREHENSIVE METABOLIC PANEL COMPREHENSIVE METABOLIC PANEL SODIUM 139 mEq/L (134 - 153) POTASSIUM 3.8 mEq/L (3.6 - 5.0) CHLORIDE 106 mEq/L (98 - 107) CO2 21 L MEQ/L (22 - 30) GLUCOSE 100 MG/DL (65 - 110) BUN 8 MG/DL (7 - 21) CREATININE 0.7 MG/DL (0.7 - 1.5) BUN/CREAT 11 (8 - 27) TOTAL PROTEIN 7.0 G/DL (6.3 - 8.2) ALBUMIN 4.2 G/DL (3.9 - 5.0) GLOBULIN 2.8 GM/DL (2.4 - 3.2) A/G RATIO 1.5 (0.8 - 2.0) CALCIUM 8.9 MG/DL (8.4 - 10.2) TOTAL BILI <0.7 MG/DL (0.2 - 1.3) ALKALINE PHOS 76 U/L (38 - 126) SGOT/AST 20 U/L (5 - 40) SGPT/ALT 26 U/L (7 - 56) ANION GAP 12.0 mmol/L (8.0 - 16.0) AGE 29 yrs NON-AA GFR >60 mL/min AFR AMER GFR > 60 mL/min Male GFR Interprentation 20-49 yrs >60 mL/min Nlqwwk98-61 yrs >56 mL/min Normal 60-69 yrs >49 mL/min Normal 70-79yrs>42 mL/min Normal 80 and above >35 mL/min Normal Female GFRInterpretation 20-39 yrs >60 mL/min Normal 40-49 yrs >58 mL/minNormal 50-59 yrs >51 mL/min Normal 60-69 yrs >45 mL/min Vipqlk50-13 yrs >39 mL/min Normal 80 and above >32 mL/min NormalLactic Acid: (SOPHY: 09/12/2019 16:58) ( MsgRcvd 09/12/2019 17:16) Final results Test Result Flag Units (Reference) LACTIC ACID 2.1 MMOL/L (0.2 - 2.2)PT/PTT: (SOPHY: 09/12/2019 16:58) ( MsgRcvd 09/12/2019 17:21) Final results Test Result Flag Units (Reference) 4 Clinical Report - Physicians/Mid Levels [facility] [address] [place] [address] Phone #: ext- [phone] 09/12/2019 16:21 Patient: NIMA DIAZ Sex: F : 1990 Age: 29y PROTIME 11.2 SECONDS (11.0 - 15.5) INR 0.80 L (0.93 - 1.23) PTT 27.8 SECONDS (24.8 - 36.7) \\BLDo\\INR INTERPRETATION\\BLDx\\ Therapeutic range for Coumadin andrelated oral anticoagulants. - International Normalized Ratio (INR): 2.0 - 3.0 for VenousThrombosis, Pulmonary Embolus, Tissue heart valves, Acute IN Atrial Fibrillation, Valvular heart diseaseand recurrent Systemic Embolism. - International Normalized Ratio (INR): 2.5 - 3.5 forMechanical Prosthetic valve.Urinalysis: (SOPHY: 09/12/2019 16:40) ( [facility] 09/12/2019 17:31) Final results Test Result Flag Units (Reference) URINALYSIS URINALYSIS SOURCE R COLOR yellow (NORMAL: Yello CLARITY clear (NORMAL: Clear SPEC GRAVITY 1.020 (1.001 - 1.030 pH 5 (5 - 9) GLUCOSE NORM (NORMAL: Negat BILIRUBIN NEG (NORMAL: Negat KETONE NEG (NORMAL: Negat PROTEIN 15 (NORMAL: Negat NITRITE NEG (NORMAL: Negat BLOOD NEG (NORMAL: Negat LEUK EST NEG (NORMAL: Negat UROBILINOGEN NOR (less than 1.0 MICROSCOPIC See Below WBC 1 - 3 (NORMAL: NONE RBC 1 - 3 (NORMAL: NONE EPITHELIAL MODERATE A (NORMAL: NONE BACTERIA Trace (NORMAL: NONE CRYSTALS See Below CALCIUM OX 3+ A (NORMAL: NONESed. Rate: (SOPHY: 09/12/2019 16:58) ( [facility] 09/12/2019 17:25) Final results Test Result Flag Units (Reference) SED RATE 10 mm/hr (0 - 20) SED RATE REENTER 10CRP: (SOPHY: 09/12/2019 16:58) ( [facility] 09/12/2019 17:28) Final results Test Result Flag Units (Reference) CRP-HS 6.12 H MG/L (1.00 - 3.00) CDC/AHS HS-CRP CUT-OFF: RELATIVE RISK: <1.0 mg/LLow 1.0 - 3.0 mg/L Average >3.0 mg/LHigh Optimally, the average of HS-CRP results repeated two weeks apart should be used forrisk assessment.Lipase: (SOPHY: 09/12/2019 16:58) ( [facility] 09/12/2019 17:28) Final results Test Result Flag Units (Reference) LIPASE 36 U/L (13 - 60)CT Head W/O Cont: (SOPHY: 09/12/2019 16:40) ( MsgRcvd 09/12/2019 18:16) In ProgressCT HEAD W/O CONTRASTReason(s): Head Pain 5 Clinical Report - Physicians/Mid Levels [facility] Emergency Department [address] [place] [address] Phone #: [phone] 09/12/2019 16:21 Patient: NIMA DIAZ Sex: F : 1990 Age: 29y TRANSPORTATION: IV? O2? Oxygen?(No) Room: ED.PROGRESS AND PROCEDURESCourse of Care: 18:36 Sep 12 2019. Evaluation after observation and results of tests back. (DiscussedCT scan, labs and pt will f/u with Neuro at [facility] as scheduled.). Patient counseled in person regarding the patient's stable condition, test results, diagnosis and need for follow-up. Patient agrees with plan of care. 18:37 Sep 12 2019. 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 No status migrainosus.INSTRUCTIONS Warnings: GENERAL WARNINGS: Return or contact your physician immediately if your condition worsens or changes unexpectedly, if not improving as expected, or if other problems arise. SPECIFICALLY, return if you develop fever; or if there is no improvement in the vomiting. Your Current Medications: Your current home medications have been reviewed. CONTINUE TAKING THE FOLLOWING MEDICATIONS: Ascorbic Acid Buffered Oral : 500 2x a day. Ferrous Sulfate Oral : Tablet 325 (65 Fe) mg, 1 tablet 2x a day. HYDROcodone-Ac etaminophen Oral : Tablet 5-325 mg, q3h, prn. Hyoscyamine Sulfate Oral : Tablet 0.125 mg, q4h, prn. metFORMIN HCl Oral : Tablet 850 mg, 1 tablet 2x a day. PROzac Oral : Capsule 40 mg, 1 capsule daily. Robaxin Oral : Tablet 500 mg, 2 tablets q8h, prn. tiZANidine HCl Oral : 4 mg q6h, prn. Topamax Oral : Tablet 200 mg, 1 tablet 2x a day. Zofran Oral : Tablet 4 mg, 1 tablet, prn. Follow- up: Follow up with your doctor tomorrow. Call for an appointment. Reason for referral: evaluation and treatment. Summary of care provided to patient. Understanding of the discharge instructions verbalized by patient. 6 Clinical Report - Physicians/Mid Levels [facility] Emergency Department [address] [place] [address] Phone #: [phone] 09/12/2019 16:21 Patient: NIMA DIAZ Sex: F : 1990 Age: 29y(Electronically signed by SREE Martinez 09/12/2019 20:12) Name Value Range Interpretation Code Description Data Shelbi rce(s) Supporting Document(s) ID Date Data Source [id number] 09/17/2019 06:07:00 PM EDT [facility] [id number] Name Value Range Interpretation Code Description Data Shelbi rce(s) Supporting Document(s) Bacteria identified in Blood by Culture [facility] NO GROWTH AFTER 5 DAYS ID Date Data Source [id number] 09/19/2019 11:57:[address] [facility] Name Value Range Interpretation Code Description Data Shelbi rce(s) Supporting Document(s) CULTURE BLOOD [facility] Ho spital _CULTURE BLOOD_{ PRELIM TEST [place] [address] CLIA# [id number] SEE SCANNED REPORT ID Date Data Source [id number] 09/12/2019 05:28:[address] [facility] Name Value Range Interpretation Code Description Data Shelbi rce(s) Supporting Document(s) Lipase [Enzymatic activity/volume] in Serum or Plasma 36 U/L 13 - 60 [facility] ID Date Data Source [id number] 09/12/2019 05:28:[address] [facility] Name Value Range Interpretation Code Description Data Shelbi rce(s) Supporting Document(s) C reactive protein [Mass/volume] in Serum or Plasma by High sensitivity method 6.12 MG/L 1.00 - 3.00 H [facility]/S HS-CRP CUT-OFF: RELATIVE RISK: <1.0 mg/L Low 1.0 - 3.0 mg/L Average >3.0 mg/L High Optimally, the average of HS-CRP results repeated two weeks apart should be used for risk assessment. ID Date Data Source [id number] 09/12/2019 05:28:[address] [facility] Name Value Range Interpretation Code Description Data Shelbi rce(s) Supporting Document(s) COMPREHENSIVE METABOLIC PANEL [facility] COMPREHENSIVE METABOLIC PANEL Sodium [Moles/volume] in Serum or Plasma 139 mEq/L 134 - 153 [facility] Potassium [Moles/volume] in Serum or Plasma 3.8 mEq/L 3.6 - 5.0 [facility] Chloride [Moles/volume] in Serum or Plasma 106 mEq/L 98 - 107 [facility] Carbon dioxide, total [Moles/volume] in Serum or Plasma 21 MEQ/L 22 - [address] [facility] Glucose [Mass/volume] in Serum or Plasma 100 MG/DL 65 - 110 [facility] BUN 8 MG/DL 7 - 21 [facility] al Creatinine [Mass/volume] in Serum or Plasma 0.7 MG/DL 0.7 - 1.5 [facility] BUN/CREAT 11 8 - 27 [facility] Protein [Mass/volume] in Serum or Plasma 7.0 G/DL 6.3 - 8.2 [facility] Albumin [Mass/volume] in Serum or Plasma 4.2 G/DL 3.9 - 5.0 [facility] Globulin [Mass/volume] in Serum by calculation 2.8 GM/DL 2.4 - 3.2 [facility] A/G RATIO 1.5 0.8 - 2.0 [facility] Calcium [Mass/volume] in Serum or Plasma 8.9 MG/DL 8.4 - 10.2 [facility] Bilirubin.total [Mass/volume] in Serum or Plasma <0.7 MG/DL 0.2 - 1.3 [facility] Alkaline phosphatase [Enzymatic activity/volume] in Serum or Plasma 76 U/L 38 - 126 [facility] Aspartate aminotransferase [Enzymatic activity/volume] in Serum or Plasma 20 U/L 5 - 40 [facility] Alanine aminotransferase [Enzymatic activity/volume] in Seru m or Plasma 26 U/L 7 - 56 [facility] Anion gap 3 in Serum or Plasma 12.0 mmol/L 8.0 - 16.0 [facility] AGE 29 yrs [facility] Hospit al NON-AA GFR >60 mL/min [facility] Hosp ital AFR AMER GFR >60 mL/min [facility] spital Male GFR In terprentation 20-49 yrs >60 mL/min Normal 50-59 yrs >56 mL/min Normal 60-69 yrs >49 mL/min Normal 70-79yrs >42 mL/min Normal 80 and above >35 mL/min Normal Female GFR Interpretation 20-39 yrs >60 mL/min Normal 40-49 yrs >58 mL/min Normal 50-59 yrs >51 mL/min Normal 60-69 yrs >45 mL/min Normal 70-79 yrs >39 mL/min Normal 80 and above >32 mL/min Normal ID Date Data Source [id number] 09/12/2019 05:25:[address] [facility] Name Value Range Interpretation Code Description Data Shelbi rce(s) Supporting Document(s) Erythrocyte sedimentation rate by Westergren method 10 mm/hr 0 - 20 [facility] SED RATE REENTER 10 [facility] ID Date Data Source [id number] 09/12/2019 05:21:[address] [facility] Name Value Range Interpretation Code Description Data Shelbi rce(s) Supporting Document(s) Prothrombin time (PT) 11.2 SECONDS 11.0 - 15.5 [facility] INR in Platelet poor plasma by Coagulation assay 0.80 0.93 - 1. [address] [facility] aPTT in Blood by Coagulation assay 27.8 SECONDS 24.8 - 36.7 [facility] \\BLDo\\INR INTERPRETATION\\BLDx\\ Therapeutic range for Coumadin and related oral anticoagulants. - International Normalized Ratio (INR): 2.0 - 3.0 for Venous Thrombosis, Pulmonary Embolus, Tissue heart valves, Acute IN Atrial Fibrillation, Valvular heart disease and recurrent Systemic Embolism. - International Normalized Ratio (INR): 2.5 - 3.5 for Mechanical Prosthetic valve. ID Date Data Source [id number] 09/12/2019 05:20:[address] [facility] Name Value Range Interpretation Code Description Data Shelbi rce(s) Supporting Document(s) CBC W/AUTOMATED DIFF [facility] COMPLETE BLOOD COUNT Leukocytes [#/volume] in Blood by Automated count 8.4 10^3/uL 4.2 - [address] [facility] Erythrocytes [#/volume] in Blood by Automated count 4.44 10^6/uL 4. 20 - 5.40 [facility] Hemoglobin [Mass/volume] in Blood 13.8 g/dL 12.0 - 16.0 [facility] Hematocrit [Volume Fraction] of Blood by Automated count 42.6 % 3 7.0 - 47.0 [facility] Erythrocyte mean corpuscular volume [Entitic volume] by Auto mated count 95.9 fL 81.0 - 101 [facility] Erythrocyte mean corpuscular hemoglobin [Entitic mass] by Automated count 31.1 pg 27.0 - 34.0 [facility] Erythrocyte mean corpuscular hemoglobin concentration [Mass/volume] by Automated count 32.4 g/dL 31.0 - 36.0 [facility] Erythrocyte distribution width [Ratio] by Automated count 12.4 % 11.5 - 14.5 [facility] Platelets [#/volume] in Blood by Automated count 311 10^3/uL 150 - [address] [facility] Platelet mean volume [Entitic volume] in Blood by Automated count 9.3 fL 7.4 - 10.4 [facility] Neutrophils/100 leukocytes in Blood by Automated count 61.0 % 37. 0 - 80.0 [facility] Lymphocytes/100 leukocytes in Blood by Manual count 28.2 % 25.0 - 40.0 [facility] Monocytes/100 leukocytes in Blood by Automated count 6.9 % 3.0 - 8.0 [facility] Eosinophils/100 leukocytes in Blood by Automated count 3.0 % 0.0 - 7.0 [facility] Basophils/100 leukocytes in Blood by Automated count 0.7 % 0.0 - 2.5 [facility] %IG 0.2 % 0.0 - 0.0 H [facility] Hospit al %NRBC 0.0 % 0.0 - 0.0 [facility] al Neutrophils [#/volume] in Blood by Automated count 5.15 10^3/uL 2.00 - 6.90 [facility] Lymphocytes [#/volume] in Blood by Automated count 2.38 10^3/uL 0.60 - 3.40 [facility] Monocytes [#/volume] in Blood by Automated count 0.58 10^3/uL 0.00 - 0.90 [facility] Eosinophils [#/volume] in Blood by Automated count 0.25 10^3/uL 0.00 - 0.70 [facility] Basophils [#/volume] in Blood by Automated count 0.06 10^3/uL 0.00 - 0.20 [facility] #IG 0.02 10^3/uL 0.00 - 0.10 [facility] ospital #NRBC 0.00 10^3/uL 0.00 - 0.00 [facility] MANUAL DIFF NOT INDICATED [facility] RBC MORPH NOT INDICATED [facility] spital ID Date Data Source [id number] 09/12/2019 05:16:[address] [facility] Name Value Range Interpretation Code Description Data Shelbi rce(s) Supporting Document(s) Lactate [Moles/volume] in Serum or Plasma 2.1 MMOL/L 0.2 - 2.2 [facility] ID Date Data Source [id number] 09/19/2019 11:57:[address] [facility] Name Value Range Interpretation Code Description Data Shelbi rce(s) Supporting Document(s) CULTURE BLOOD [facility] _CULTURE BLOOD_{ PRELIM TEST PERFORMED AT [address] [address] CLIA# [id number] SEE SCANNED REPORT ID Date Data Source [id number] 09/12/2019 05:28:[address] [facility] Name Value Range Interpretation Code Description Data Shelbi rce(s) Supporting Document(s) [facility] S[facility] R [facility] COLOR yellow NORMAL: Yellow [facility] CLARITY clear NORMAL: Clear [facility] Specific gravity of Urine by Test strip 1.020 1.001 - 1.030 [facility] pH 5 5 - 9 [facility] Glucose [Mass/volume] in Urine by Test strip NORM NORMAL: Negat [facility] Bilirubin.total [Presence] in Urine by Test strip NEG NORMAL: Negative [facility] Ketones [Presence] in Urine by Test strip NEG NORMAL: Negative [facility] Protein [Mass/volume] in Urine by Test strip 15 NORMAL: Negat [facility] Nitrite [Presence] in Urine by Test strip NEG NORMAL: Negative [facility] BLOOD NEG NORMAL: Negative [facility] Leukocyte esterase [Presence] in Urine by Test strip NEG JESICA L: Negative [facility] Urobilinogen [Mass/volume] in Urine by Test strip NOR less melvi n 1.0 mg/dL [facility] MICROSCOPIC See Below [facility] ital WBC 1 - 3 NORMAL: NONE SEEN [facility] Erythrocytes [#/volume] in Urine by Test strip 1 - 3 NORMAL: NON E SEEN [facility] EPITHELIAL MODERATE NORMAL: NONE SEEN A [facility] Bacteria [Presence] in Urine sediment by Light microscopy Tr amanda NORMAL: NONE SEEN [facility] Crystals [type] in Urine sediment by Light microscopy See Below [facility] CALCIUM OX 3+ NORMAL: NONE SEEN A [facility] ID Date Data Source [id number] 08/03/2019 09:04:51 PM EDT [facility] Name Value Range Interpretation Code Description Data Shelbi rce(s) Supporting Document(s) Discharge Summary [facility] [id number] [facility] [file] [id number]+[id number] ID Date Data Source [id number] 07/26/2019 04:35:31 AM EDT [facility] Name Value Range Interpretation Code Description Data Shelbi rce(s) Supporting Document(s) ED Provider Note [facility] [id number]PO8GVmAHjTpGfUvCYSr lbm [file] [id number] ID Date Data Source [id number] 07/23/2019 02:46:29 PM EDT [facility] Name Value Range Interpretation Code Description Data Shelbi rce(s) Supporting Document(s) Progress Note [facility] [id number]/WKMlbYLZza4ZqISwhBQr7KCghSKDcP1JbBSG7sZ9nOXP1TTrEMfYyEyPrDVOs lbm [file] [id number]= ID Date Data Source [id number] 07/23/2019 09:05:00 AM EDT [facility] DATE OF EXAMINATION: 07/21/2019 13:45 EDT CHEST 2 VIEWS HISTORY: Chest pain TECHNIQUE: PA and lateral radiographs of the chest COMPARISON: 10/05/2018 FINDINGS: No evidence of focal consolidation, pneumothorax or large pleural effusion.Lungs are clear. Mediastinal structures are unremarkable. No aggressive osseouslesions. Right-sided [employer] shunt is noted. IMPRESSION: No focal consolidation. Electronically signed in PS360 by: Lola Strickland M.D. 07/23/2019 8:59 EDT Name Value Range Interpretation Code Description Data Shelbi rce(s) Supporting Document(s) ID Date Data Source [id number] [facility] Value Range Interpretation Code Description Data Shelbi rce(s) Supporting Document(s) Prothrombin time (PT) 12.6 s 12.5-14.9 [facility] INR in Platelet poor plasma by Coagulation assay 0.94 [facility] Routine intensity oral anticoagulation I NR is typically 2.0-3.0. Target INR must be clinically individualized. ID Date Data Source [id number] 07/23/2019 06:33:02 AM [facility] Name Value Range Interpretation Code Description Data Shelbi rce(s) Supporting Document(s) Albumin [Mass/volume] in Serum or Plasma by Bromocresol green (BCG) dye binding method 3.5 g/dL 3.5-5.2 [facility] Bilirubin.total [Mass/volume] in Serum or Plasma 1.0 mg/dL <1.2 [facility] Calcium [Mass/volume] in Serum or Plasma 8.7 mg/dL 8.6-10.0 [facility] Chloride [Moles/volume] in Serum or Plasma 108 mmol/L 98-107 H [facility] Creatinine [Mass/volume] in Serum or Plasma 0.60 mg/dL 0.50-0.90 [facility] Glucose [Mass/volume] in Serum or Plasma 102 mg/dL 70-140 [facility] Alkaline phosphatase [Enzymatic activity/volume] in Serum or Plasma 236 U/L 35-104 H [facility] Potassium [Moles/volume] in Serum or Plasma 4.0 mmol/L 3.4-5.1 [facility] Protein [Mass/volume] in Serum or Plasma 6.3 g/dL 6.4-8.3 L [facility] Sodium [Moles/volume] in Serum or Plasma 140 mmol/L 136-145 [facility] Aspartate aminotransferase [Enzymatic activity/volume] in Serum or Plasma 678 U/L <32 H [facility] Urea nitrogen [Mass/volume] in Serum or Plasma 8 mg/dL 6-20 [facility] Osmolality of Serum or Plasma by calculation 289 mosm/kg 275-300 [facility] Creatinine/Urea nitrogen [Mass Ratio] in Serum or Plasma 13 [facility] Bicarbonate [Moles/volume] in Serum 20 mmol/L 22-29 L [facility] Alanine aminotransferase [Enzymatic activity/volume] in Seru m or Plasma 786 U/L <33 H [facility] Confirmed Anion gap 3 in Serum or Plasma 13 mmol/L 8-15 [facility] Albumin/Globulin [Mass Ratio] in Serum or Plasma 1.3 [facility] Glomerular filtration rate/1.73 sq M pre dicted among non-blacks [Volume Rate/Area] in Serum or Plasma by Creatinine-based formula (MDRD) >6 0 [facility] Glomerular filtration rate/1.73 sq M pre dicted among blacks [Volume Rate/Area] in Serum or Plasma by Creatinine-based formula (MDRD) >60 [facility] ID Date Data Source [id number] 07/23/2019 07:15:56 AM EDT [facility] Name Value Range Interpretation Code Description Data Shelbi rce(s) Supporting Document(s) Leukocytes [#/volume] in Blood by Automated count 7.8 10*3/uL 4-10 [facility] Confirmed Erythrocytes [#/volume] in Blood by Automated count 3.92 10*6/uL 4.1- 5.3 L [facility] Hemoglobin [Mass/volume] in Blood 12.6 g/dL 11.5-15.5 [facility] Hematocrit [Volume Fraction] of Blood by Automated count 37.2 % 3 6-45 [facility] Erythrocyte mean corpuscular volume [Entitic volume] by Auto mated count 94.9 fL 80-96 [facility] Erythrocyte mean corpuscular hemoglobin [Entitic mass] by Automated count 32.1 pg 27-33 [facility] Erythrocyte mean corpuscular hemoglobin concentration [Mass/volume] by Automated count 33.8 g/dL 32.0-36.0 [facility] E[facility]throcyte distribution width [Ratio] by Automated count 13.8 % 11.5-14.5 [facility] Platelets [#/volume] in Blood by Automated count 246 10*3/uL 150-400 [facility] Confirmed ID Date Data Source [id number] 07/22/2019 09:13:29 PM EDT [facility] Name Value Range Interpretation Code Description Data Shelbi rce(s) Supporting Document(s) Progress Note [facility] [id number]/[id number]PA9jI4tYKH1DMgIFiCoIwEcBKG3 lbm [file] [id number]CePZ2MECy= ID Date Data Source [id number] 07/22/2019 08:50:47 PM EDT [facility] Name Value Range Interpretation Code Description Data Shelbi rce(s) Supporting Document(s) Progress Note [facility] [id number]/[id number]EsN6EnRES0lC5xGVX7YKsNSkZlPyLvCYU5 lbm [file] [id number]= ID Date Data Source [id number] 07/22/2019 03:40:12 PM EDT [facility] US DOPPLER ABDOMEN PELVIS ORGANS LIMITED [id number] RESULTInterpreted by:Castro Pittman MDINDICATION: 29-year-old female presenting with elevated liver enzymes. Evaluate for portal venous thrombosis.TECHNIQUE: Multiple grayscale and color Doppler sonographic images of the abdomen were obtained. COMPARISON: No prior relevant studies are available at the time of this dictation.FINDINGS:LIVER: The internal echotexture is hyperechoic and heterogeneous, consistent with diffuse steatosis. No focal lesions are identified. BILE DUCTS: The common bile duct is dilated to 1.0 cm. There is p rominence of the first order intrahepatic bile ducts.GALLBLADDER: The gallbladder is surgically absent.PANCREAS: Head and uncinate process of the pancreas are normal. Body and tail are not visualized.RIGHT KIDNEY: The right kidney measures 10.9 x 4.6 x 4.6 cm, with a corresponding volume of 120.1 mL. Cortical thickness measures 1.2 cm. No hydronephrosis or stranding calculi are seen. No focal lesions are identified. ASCITES: No free fluid is seen within the visualized intra-abdominal cavity.VASCULAR: On Doppler interrogation, flow is seen within the hepatic veins. The main portal vein, right and left portal veins, clinic and superior mesenteric veins are visualized with flow seen in the appropriate direction. Main portal vein velocity is 36.9 cm/s. Right portal vein velocity is 39.1 cm/s. Hepatic artery velocity is 129.2 cm/s.IMPRESSION:1. No evidence of portal venous thrombosis. Flow is visualized throughout the portal system in the appropriate direction with velocities given above.2. Dilated common bile duct and prominence of the first order intrahepatic bile ducts.3. Hepatic steatosis.This document has been electronically signed by Daniele Spencer MD on 07/22/2019 3:38 PM Name Value Range Interpretation Code Description Data Shelbi rce(s) Supporting Document(s) ID Date Data Source [id number] 07/22/2019 03:40:12 PM EDT [facility] US ABDOMEN LIMITED [id number] RESULTInte rpreted by:Castro Pittman MDINDICATION: 29-year-old female presenting with elevated liver enzymes. Evaluate for portal venous thrombosis.TECHNIQUE: Multiple grayscale and color Doppler sonographic images of the abdomen were obtained. COMPARISON: No prior relevant studies are available at the time of this dictation.FINDINGS:LIVER: The internal echotexture is hyperechoic and heterogeneous, consistent with diffuse steatosis. No focal lesions are identified. BILE DUCTS: The common bile duct is dilated to 1.0 cm. There is prominence of the first order intrahepatic bile ducts.GALLBLADDER: The gallbladder is surgically absent.PANCREAS: Head and uncinate process of the pancreas are normal. Body and tail are not visualized.RIGHT KIDNEY: The right kidney measures 10.9 x 4.6 x 4.6 cm, with a corresponding volume of 120.1 mL. Cortical thickness measures 1.2 cm. No hydronephrosis or stranding calculi are seen. No focal lesions are identified. ASCITES: No free fluid is seen within the visualized intra-abdominal cavity.VASCULAR: On Doppler interrogation, flow is seen within the hepatic veins. The main portal vein, right and left portal veins, clinic and superior mesenteric veins are visualized with flow seen in the appropriate direction. Main portal vein velocity is 36.9 cm/s. Right portal vein velocity is 39.1 cm/s. Hepatic artery velocity is 129.2 cm/s.IMPRESSION:1. No evidence of portal venous thrombosis. Flow is visualized throughout the portal system in the appropriate direction with velocities given above.2. Dilated common bile duct and prominence of the first order intrahepatic bile ducts.3. Hepatic steatosis.This document has been electronically signed by Daniele Spencer MD on 07/22/2019 3:38 PM Name Value Range Interpretation Code Description Data Shelbi rce(s) Supporting Document(s) ID Date Data Source [id number] 07/22/2019 12:00:04 PM EDT [facility] Name Value Range Interpretation Code Description Data Shelbi rce(s) Supporting Document(s) Consultation [facility] [id number]ME3RGoGHzVpYfJvWPB4 lbm [file] [id number] ID Date Data Source [id number] 07/22/2019 11:55:02 AM EDT [facility] Name Value Range Interpretation Code Description Data Shelbi rce(s) Supporting Document(s) Consultation [facility] DZKBIi8bSfHMClQd52/IEOxeXEOnc3BnUNrtWKc3EGgfPLTwK9HzYXS9mM1iCEB9NPwMUvRuNdIxTTJ0 lbm [file] p3PhufC9qwXwNBkpGuq6EI6UYXRSU1XKEa== ID Date Data Source [id number] 07/22/2019 11:43:18 AM EDT [facility] Name Value Range Interpretation Code Description Data Shelbi e(s) Supporting Document(s) History and Physical [facility] YSJWUt9cRvMDHwYr25/OBQanWYGsq6InRYwkHLp2QNjoVLRkN4DuMXA8aO0cRFL0AZfXWdFhQwEdPBQ1 lbm [file] ICAgICAgICAgICAgICAgICAgICAgICAgICAgICAgICAgICAgICAgICAgICAgICAgICAgICAgICAgICAg JPQeIRUzJZEiBT5PFIMdKDErRDOsMVDhTAPlUNBgKG AgICAgICAgICAgICAgICAgICAgICAgICAgICAgICAgICAgICAgICAgICAgICAgICAgICAgICAgICAgIC WpRBVkYRXgMTBvAZRwBGPvOPDnDV1MMKZvFEQsCGLdSAOkIXPpJLJpBDXbKCEjIOGgUAYkOUSkKDMrFN AgICAgICAgICAgICAgICAgICAgICAgICAgICAgICAg XMTeDLMfRRGqLYBzIATrCJNaBRDdMCRqNJVuEIJpEM6UTNWuPXQnIXZnXREsWWFxTVHlHBTpYKVdXENu ICAgICAgICAgICAgICAgICAgICAgICAgICAgICAgICAgICAgICAgICAgICAgICAgICAgICAgICAgICAg SRIyHLLeLEUkDIOtRL6PVIWpZNLuITRcDVMgROZbVR AgICAgICAgICAgICAgICAgICAgICAgICAgICAgICAgICAgICAgICAgICAgICAgICAgICAgICAgICAgIC YwVCGmVUSvLKVtWGExNJSySWWpATYxHI9BSIQvKFKcKCWgLEAlORFqKQHaZEQoZUCyEJXoAABbCMQuRR AgICAgICAgICAgICAgICAgICAgICAgICAgICAgICAg EBYiRCBzKKYcOTVrOHVtMKYrDVLlJLNaJTUqRVKmGJOrOA9VYNYfJJLbDXZqOWUaLCJeKQVwSCJgXZOn ICAgICAgICAgICAgICAgICAgICAgICAgICAgICAgICAgICAgICAgICAgICAgICAgICAgICAgICAgICAg ECMsILFiKWUoPRZhACMlJR2RYTEiIALzQFLpGDYlXB AgICAgICAgICAgICAgICAgICAgICAgICAgICAgICAgICAgICAgICAgICAgICAgICAgICAgICAgICAgIC EsSAGfCBPuSNTtVCUjZEXbBWOgRSGaGQEgAM1UEKSnMJDiEPNnWYKhMLCeEYWfWIBvBEWzOKTqLUNtAG AgICAgICAgICAgICAgICAgICAgICAgICAgICAgICAg HDUcXXZwKYCcLDVeFYIcAYUfIMXpLHYeBWGhZFDfPPTvSJZfOQ9UNTWhQCRoRMAbZGCoSHKgRLZrGZFs ICAgICAgICAgICAgICAgICAgICAgICAgICAgICAgICAgICAgICAgICAgICAgICAgICAgICAgICAgICAg QNRiDEFaIYTdRNVsVOApBSUjYS9ITS92aPRtg7S5ZN SmZS0vylk/Br8WMKqqclQsdPHdGZ7QGvDlWZ2pra1MBaWyUQ3wyr9SRYdQElJfG4B3gINgKQImMACKXj OqY98zZWvrKv65KBywSRVtTaRxUEx1Sg6EVnFmT9owOQQlJsD9BMUeMjK4IRLvTfY6BIDqNySfKAYeHX LgFTPvRMCJQZH9PIJqIiJaCaToAUCsEKjlNBIUBK6Y NiOzY1NjjH92KWrNXp3+PAnamjKnFflLYzLcYROff6NoDJl7AK8CQNWeOnqsn6QoCYTkVTUJFXiaTY7N HIT1NLIhKNUmVd7HJJSfS038xyLlGW5SJy4WPzCeOH5fmb9PFXVyCCGwXtlLEmb8PUtrWS8LcNTyKUkX UgHpXpktHQeyPNKiMTVOcHE6bQ1zCE5NDTD3WBRrIN vmVuPjRBQiMHw1FUYVOPhSDjBbS3Vfj3VrEkF7FSEbQmSrUJnyBANiGlY6SF55dFfhIV6CFVVoPCKyKL 26ZOSyLTSzSd3THg9MTyXaII1mrz9XEUZrUTTyXmnIIlm4HGxdKI5CbPGaL2JbpFMzd4sXRfPjE9EULQ EdPXEoEg7RBOQuKhKpTHDxIWvcXS1jTDYzBDIBwDsm pcF4PA3VUA3pxqPnIV4CFaQmPa6fXp8WUiLjG3UvJ2ZcXMWbFWEOCSiiUF6QHImtLM4cBW2Pv8HMdHNh lH9qmp6VOSGuHIBeZjfszs3JQznoR8Z2hSzgWLKtCTHfCINNEMwqMP7EVMJoIZE4UEO7YPKmTLQQKjMz Q24aPE6IM7Rqi36kXwS7LXBxHgOtVPkxSG25xZnhfy YopBHkjVgpLF6QGb2+VEgxgxNiMaoVUkuoQGHQXnIhFYEKFlYcIPJmUJXhCIVhPfK3ZbNvIe3JLBKuVZ JkNJDoNwHoLWTzDEQzROcjQOBmCEH6GZt3QVDeWSRqHV5TFmBsQWGhZDu9EpGzOYBfAEWidu8NNMAvAK RzVSD9GwNyPOCbSODuQWezGLNfRVNiYsR5WVHfQXYl KQ1CTbTeXYAlJWM6MFaoXFDoEZEnxn8ZXPYpOTDkCbXkSlUaRGVoAEViZXjuJFCmZZH2OtEbVWNkJNJn IU5RMnGxOVWpSCLfBXIyZODkWVIoer1XBPTbPUOyLSA2OSAhVGZqZJLgULhaTTPuULLuSQP7MFWeJFIt BM4DOwTbBTPwYYD4RKKlATOmVTUzfr3FWAXaWUWlHu Q1MRGvRUHdKVDeJTxbTLNsWJE9EPZ7XTHqAKVeYT9MMyLbRWImMwAmNMObNUGuVMQehp9IUTJkAMDeER GcCFLtCHDkERKcJHmhLTWfWWL5NtApHUUrIBVdDL8DKpOyEJFyJxL3OtayQBLjEBTuzc9GCBKrEVAcLn e9DZGvRSYdQPJuJNzfXXNrVJX9LTM8EAMtRZEsDV1O MjKwTGHbFlqkUpDiVVSdXUPtof0ATMIwAKDdEVXbFRJnRXOhMCZaEZzpBDHzYHY9XOA2YCLcFDPcFX4X LoXiRBCzQkB0AqEnBMSnEGDmqw1XYLUwOGUuWSA1PDTyNDGhPJRhXGwfYGBzFIIkPWDcQZUvVQGeHF3N HzSuPOZuNwP8ZPDvNQMaRDMdig8SKMKfNMErGxSoZS BqCDGfRRVkFAvmVIZbVCEbZzK2JIJyJXAoJT1HLzYhTLOhHcQfNkMjZXRpCRLqyb2JVGThEONqPlC3HY DkBESdFBYvRXjrDMFyCEZmVOisXHVbZXWfZR5HRfKePZTlULZ4XRKkBQDoEHSiqi8AHKOyPCY0WGD5Rk LjJDLyAOUnHDsrBSRyEVU5TPuxQEDbIGIwZL4WAxAn HXWyWMH7ChVdABDfNKYqli5UONDgDPH4LBe3MfCxSHGiTKZjJMicFWStTGI4MZVjMLLkDYFuNB7NIaEe BNPnLLN0KZufZFYuMHBycz4SKDFdLHW3SkK3UaYxBLUiLQTkVCdbEORjJGP9PbN1PMMgMXOyUF8RKdOc SAOtURazXWVjSNIsLRZbkp6NCAUmENT1UYM5TpHrHV PtVJYyOYboCTKxOYW1QtGjJMKoCKSkWF0YFoKvPSyxAYAIRrd9LMuuM2w0ALM0SQ0LW4Tas3XvUJBiGK JEYYnvYM0mjyCvNMRqDt3ZQ3nXGuj6FDKvFdMoJsM2JXNvDAH0XWL1QaSdWoYxAjU7XvIsYg1bXPFiAh FgIJHtHSdlKQDcNyKzYSFpPgYxWBTsJRg2ByRtFsVk EK1ZIf1CKbS5FZC2tSGjZi7SULu6DzPEVmZuWP3NVQe= ID Date Data Source [id number] 07/22/2019 10:56:10 AM EDT [facility] Name Value Range Interpretation Code Description Data Shelbi rce(s) Supporting Document(s) [facility] THAKNf3fAwQWGyNb18/BWMooKJBnv0VnIFjxPAt1GPgkYRScZ1NbCXR0dQ3zJON3ZJsAGwVsNzGsBZY8 lbm [file] k3QiN5FYMfWxu+FF5rOTr+Ik0Nc3OhqbY2joDeVJo4WpGuXO8GQHPTM9YMCf== ID Date Data Source [id number] 07/22/2019 10:55:40 AM EDT [facility] Name Value Range Interpretation Code Description Data Shelbi rce(s) Supporting Document(s) Progress Note [facility] CSVGHs7wZhUAWhZy94/AKCorSENty8ShTAzmTAd2GPvzRZZuR9MdDQO2bC3sMRA3GBsILyBqWcOzECI2 lbm [file] 93qaJHdpcdWezZLZbBM/fire crew specialist+UdX3OLYLj11//KMAjCfIsKHGCy8aDknkYqv2xl0hF8LFEZx/CUnuSwnqa [file] St9ZZSVeMXYRMuYkUM9DZDw= ID Date Data Source [id number] 07/22/2019 08:41:02 AM EDT [facility] Name Value Range Interpretation Code Description Data Shelbi rce(s) Supporting Document(s) Progress Note [facility] PIYSUp1nQqZMZmGu59/MXBpmFCLwf2LcQVacOKh2GVrvYNExR2LlCXS4fC7wXHA9UGiSEkQkWqCzEQW2 lbm [file] AgICAgICAgICAgICAgICAgICAgICAgICAgICAgICAgICAgICAgICAgICAgICAgICAgICAgICAgICAgIC AgICAgICAgICAgICAgICAgICAgICAgICAgICAgICAgICAgDQogICAgICAgICAgICAgICAgICAgICAgIC AgICAgICAgICAgICAgICAgICAgICAgICAgICAgICAg ICAgICAgICAgICAgICAgICAgICAgICAgICAgICAgICAgICAgICAgICAgICAgDQogICAgICAgICAgICAg ICAgICAgICAgICAgICAgICAgICAgICAgICAgICAgICAgICAgICAgICAgICAgICAgICAgICAgICAgICAg ICAgICAgICAgICAgICAgICAgICAgICAgICAgDQogIC AgICAgICAgICAgICAgICAgICAgICAgICAgICAgICAgICAgICAgICAgICAgICAgICAgICAgICAgICAgIC AgICAgICAgICAgICAgICAgICAgICAgICAgICAgICAgICAgICAgDQogICAgICAgICAgICAgICAgICAgIC AgICAgICAgICAgICAgICAgICAgICAgICAgICAgICAg ICAgICAgICAgICAgICAgICAgICAgICAgICAgICAgICAgICAgICAgICAgICAgICAgDQogICAgICAgICAg ICAgICAgICAgICAgICAgICAgICAgICAgICAgICAgICAgICAgICAgICAgICAgICAgICAgICAgICAgICAg ICAgICAgICAgICAgICAgICAgICAgICAgICAgICAgDQ ogICAgICAgICAgICAgICAgICAgICAgICAgICAgICAgICAgICAgICAgICAgICAgICAgICAgICAgICAgIC AgICAgICAgICAgICAgICAgICAgICAgICAgICAgICAgICAgICAgICAgDQogICAgICAgICAgICAgICAgIC AgICAgICAgICAgICAgICAgICAgICAgICAgICAgICAg ICAgICAgICAgICAgICAgICAgICAgICAgICAgICAgICAgICAgICAgICAgICAgICAgICAgDQogICAgICAg ICAgICAgICAgICAgICAgICAgICAgICAgICAgICAgICAgICAgICAgICAgICAgICAgICAgICAgICAgICAg ICAgICAgICAgICAgICAgICAgICAgICAgICAgICAgIC AgDQogICAgICAgICAgICAgICAgICAgICAgICAgICAgICAgICAgICAgICAgICAgICAgICAgICAgICAgIC XxRZMkNBFyEVHaVRXtEPYuEZMdRZAbGZSgBZXgASHbGRTzEWKsGFBwDXYyYKa9N6jwDULaNFLzXE1pJX d3Jz8+BZlCKlUjZBR3wiBleN2KIH7jj7PgVVneNZPb z1QmMDq7VF6YQZZnKPqhXI4LRCmdxm9ANRHqFWYtdNZCo4xyKjVuUJU0TTVwRowhWJ3OIPFlO3eszgYv XLVzMAOASH7SXgLhG2ZisC41WWGSIm2+YVehlhRcUdwBIlGkZIJfh6FjTJl2JC5FFSIoAdaxk0BkAyFt MCRFPMmrSF0BPBG0ENDiNWDmSt0DRVRzJ823plKfBD 4ZNv9MCfFtEL0nxr9JPwDfZIKgGtxOUsf7QOgtUG4GaXTkZDnQzz6femHhjrCGr7JmjrGyfQALJMU7uC FlP0tjB8adS6VlQeinvioyUDQzZCMcEI8eGD4kSKNcWCY8IsV8NPTBHZ7JVPTcFSReiEPwWXQyIKACJH 2NAKelRUY7GVSbgvGgfLHeVCfvKO1JKOGyxxNmHuWm MCBSDQo+Mq7TAI0kl7XwSDznLeRpBK3kwz5YIKzECsJhI8E3gXBfG4Q8JXhvGj3VBPDqOMYgLAyxIFDU MEsrGV4NKA2hsgO6TY9StDVcWGFwBKXyeVRgROg2H46esMXfAFopYB4XWMY+Tiffany+Qu2FAQQkDSDvNRBf LjNkKBXSBvMbP1GxR6PNc1OsG7RzYQ77rPrepfZhIV aaCZ4WQT1fIAFdSDLENF8PyPCsqC6izeJzPSHjPMLBCaFdX18enVOeASReOQO0SQSrBq3SMAQjB0Wtyo IxyHgkofXfCXNcMYLHOF6XZIcuuiXnqBBjmOpmMH51aXddPS7XJz3JMwVjOO8ftb6KdGMeDs3LLMPpNm 4XNUEzTBCeAQMuXLC5KZJjGfVxTMrfIOTmVCIkOZO0 NUYbOQPcSW3XIdNdRBApOCn9OrOkHSYxQJAdip0ATVTnZZSlGND0MRZbYJIeVZWqZAlrSPLrWMDbGIV8 HDExELUbPH3ABjLxTLBeVVSoAdYuAUFsRHPenz1UZHHiWBHsLlEpKDBeRGJlNFXeIUcmSXIzUSEkZMtn GBVbEHAnBX7YJeCfXKDfBZWbSszoRJFuXCLopf1USJ LjYAHyJpE5GSCoPBRbMTDhUFiqABWnAVV8YWH6QAQgNZTrLR8NIoZaXDLiIIK5CPllWDBoMTFzen4XSN DaTCSvQOdeXiDaVSXjXWMgMUvdCDGiWFJ4XMX8LEXiDMGlPL3GXfWxRXXwHPBaQiYiXVDgCIJwyi5HZG TcYZZyLoR1PtWaFANeAJNfPUeqFEEcLOA9FfR5DBGw JSZxIZ4TVpPpCRVpZRz1TKKfAKWvRMOyho5MJRZmAROfEjZiBJMxVDAhBGIuYCjmJZTqUYD7HVJ5CYBn INSwJM0QHfRuLLQdACo0HVxtRPTqDVKecb6HYIXwVKDfXRM8ZOGsIALlFWQvJJfcYFVwQBD6KuZiLVIu KXPiAA9UBnPcTCitTUTAExg9CCyiS2e3HFEkVu0AM5 Vyk2BoWsCyHCWGJIfxCI0pwuJnWHKwIq3PU8xUMejaVWAuDOFpCOD1QLA8JFkvSgHkNePtHYcjSUWdRx O5Qt8eJMK3BlBmHyF2VmvlMjl9GSJiLXN5JSF8YEI7BGO9ZMmdXbQwHB2YCd4YPnT8MQX5wVKpVi3NJM l3Hb0VUDHPP7LPCx== ID Date Data Source [id number] 07/22/2019 07:54:10 AM EDT [facility] Name Value Range Interpretation Code Description Data Shelbi rce(s) Supporting Document(s) Progress Note [facility] HROWHw8rCoIAMfXk90/FNJaaXZUsz4OoMOwtTJe1KZzkSUSgN4QpKKE5iU8iDQQ7LVxVMcEqZtKiARV6 lbm PiVepSHgNaESBxCtvDIuHyJMbiZpkvgNDqRT5PlSD6KUMtP45hZQXmLGAuA0UnPUTwLYE+Jo2HXHWtrC EnMU1LPywZ7OuAq8c3QO8txL2qqDLUwTIZcQfp7FbH2FEQr8aUrIQ8pBFvoFMhXLnlkp70RYauLRmJ9C N2GyRJ6jTA+ERC5i0BWyV+/B6OSnWXhZdwlzHlkSoO 33+Iblbiv5PoeAfTCHAUN1BFaPct/xfKrpc9ubvWgbLPXhMetIfkwWXIv+xT4Fon8gRahUD0avLoYOrY ezCaVHE2P14vmqYrGRtr8xrIyRjXftJb53bHFD2QOmeZGK9fxVu4N3RVwuxqWKFjma9TUQdMqFnNxyfM ova1TLobB2VA7t63rNiKsenBCZgS6JZ9n9dLLzoWKn 6rOlyZxZuEVr2AVTcH77z04XJF6ajbo6GOXmgOS3dZK94yC0hOkhrqPFKzmWyrSblXasYU6qjgj5/ouL ZxbaIbJ/+LY7rKqcGzM9e5EaKBIetvzdj2wXw5cwCfDGfkAqR4bGgIJQ0+dsA5gk04PnA6Ukw/nebJKi Q3lHhJUzfdmrFwgqbMmMjeSG5xz5/89Oye6b/8OIbh N8GiskEuXKwi+By9rv45PTuXtFHHD7l2wXY9iDRf1Q7cMdOHXm81Dvso7vZ8eK9w5oWp3UGr6HEn6P0p 5sksyfNk+jtAXI3qoxTRUr4L/AvyMj2uXeHORVNFrqKDBorzNONLDpCZAD44XD6gG6yI2yrNjRSbm6Mb x0oRVvqrab1pM2P8ewzclBK7geab0yIODziOtpssov [file] c1BAt5skpuVxe5Xu5ASq/2A2rr7/QbQeE6eIlhGrrzXtOC+Jaswinder/z0/oDqHsTEmmWB8bBAsk7XFQjOLdXA I3pHmXbMs/WPGvQZ5UojF8bjYQWZYUIVuR3XqQleCu TTCqNBIK+3c44DbJvbcvCeV2aujIyiPGSHz0QnRdkLKRgD1D3rN84jsWErcUfxWM6p5ANxaHLIL6tBIW mJTvTUNTQYXu1sArFHhhVmKSnD/7Y+fMGNHcNJboM89G0ifpGPXpygY4ZAYHLUrm57OfoU2+ZCgwxeV+ 4uGr7bH4jFkXilBA/7pm4VEBe6aoTWtE/xhdZ7jHMO CLIk6u19LHLBH3AqMOZuybTv3N4KOYkB7kcmMI7XG9un/4TC8C+kxtJ9sn6YF3qDFosCsxIH2tpZla1q l0iSFjs2UaiiZLenprBbMLyA8o57p7Bi1aLX/cEWsZRAX+wun8k0RRBETJPOdGPEp9IP2k8PxossChgs wtSgNeGqOzZHlmQ52FwbGSJqJXlbHp+FmkrQjAWWWQ XoxRAh1+NQwoKLwp5yK1o+RAp+KMghGeN4eTO6LOWoIPH0N6N9dT0De93zKug36rvd0wLEyN/5qRHoQ3 e47OLNBzMMxp0XXIUX1K2YrNj/XzO6PHr3EbyPLHwawdeb/hfXmfpfWpcLc+FOxDRniU/CXaIPvbN15R vcL0SBhk0rEEEFuAV46/U6LsuCGydorcvg2CyZxbCZ Lc5CTU5tKUJHg3PuUZCmS3FHuRofeI7EAGjfHL3Cg0m3ilzUI1tTol81H+uKx6ijhwZ9/izSmUDEcZ5/ p5bGnFf5a5tx+dnHtBHem49KPjmDoU82EqrKYKQXzhYMPknRQhM3ioctEE0JQFXVI7lnu5zchL1JCk93 Andrés+/ylwtu1VUz2dp/Rr5e6y4UqdQnUyFepEONmbu0 [file] Cristiano/lF1hDlNHHvq3oF73azjOX9iS+4mLel42NlYYNHAKqF+ZU6gWYtM1y6EOKzr5ky2cXUs0Cy82zudQ 6ovtWme/CjGiOi9mNqOYNwXRPXFwl0O9QWIGd/xquA XSaAYC083LvXCazmluIoSwKXqUjLXP3skl4/ox3FAol402PdyjzM0KTWJY+yvztKaIO4JUZuJoMaB68g y/fW+xuIXPKu+GRiVusoXZpl2sCOXP+gDLukTPgpF9JUENp3a8wFrfWgyt6bLAVBPC+LDHlym4TwArxI CAiAl4wC9qPOsdGtQ4ZIAZ4/SWDSujh0oHQtiVM0Uy qjT4uCagROg7ahXmfzBKzoLIg2ZmefrI8XKuRTAfRjWiFtcriXH2V3/F0VZDfIodtXRYI+aVAUIxCQqp qO9LewGWz7l38ASl5/S9umDkgRg28Bnd5Q1kC0PUHyOoG3XoK9OCuMzOPb/XuM1WgxJiECkcDPdBk/Nx TS2aAKNPHysinA2QV3/IXFtQ3Eq7X6iL4xvc0IGkjJ Mzmkf9Et0Z4/NaPhA5lt0qOGIXwYqzCgnYIt35hDmeJNoYUQN3Rp1x2kJSALweuzN89Hk1prHRgYtzKk 6ATkA7I/FqPnY3tXwAyqme47DHUOnmM7Q0uQvDr5RNLFv70A0glnYzEC42nNMq+UqV/wWMGl3vNQ06+B GHNZ3ZfgVVwIN+gGQXcQYNuL+/Y4eM1mrsd1QaNnON RQKGxwL604OtBIGHfboDFJEpEoa5J47u2tYijgC97gegIQJe10GmFt+ArQXc8AmrKj2pDcA758YDIDby Salesforce Administrator+JafNwDLwapYZeRxVy/fTvs2OmbpPDVDqPKXSZ0z14zUHI2dXJ7PX96zs8iC6mkYdfp9MfLzhVhti QZbyyveiueHEpeBvXBdAQOI81ooBnX+EK9fTIuNMSL 4UpR8Ta7SjwHnJrAy0hwXrJmsce3goARnpIvB81I30AFHRgCFkp1bvk6QJ5m+EbjuzQGo6ZpRM31KXGy z2unSl1EY8MCqq7ny08bFObrBFX2cEWemoEcbhYBgFLmxKkPJ8GJbMvq0rWb3WwpMQgQfhmkrHTbsRvW lRo1suSTMF+tp2XFBxcWPKIks43TIK0P2nQLtsNArH i8By0hKtxDwkMTIzjDDBFzTMcs8tI5duyGNN622t6CUnAHfJ9FllZSzBZc/4k4XdfVPWHi99G5AMY9Tw VDeKHOWnq1SUdwEG6gjGV8eBPJTzdbTzDiqg/CLdaxybp7e+KahjjsU2tUIWkqQYddPviyWcdEAmpx4a HwRdENsiAucAVkZkohEqLBynapZaCGx4ExaTlWS9Lz c6Lvz6buTueo2pKUqWU/IiaVLIO30KE2vF2DOxL9elNzfANXw787SXmNaXCgk/p+3J7XB4ZNBxKylNKK jzWpYEgrpD8dV2Np1SO2CHWkjD2IaOdxywBxCy4lLBLNQTXoV43CN5P1EM0V7VTn4FjdBr6/mRQaEZnl Dx8RGkPz5UktJ9xhMSR+aCxWQZ9oHQiLAosMGWaTGj buaM3GmX4n9bYBWkbqwDsbgeytrljKBPJijtf2uk1kw8z+NTHOklXDJFFsRDRSgjDWAW1ebPyqimEDrB 18BUqvSfplIy+RYHUhxkI18QFzRAPxbTfIuboyTdf5MWZCiGuYPF4LsDv4dtwwMpAwKsHreEJuWtDzAM rsAKBsEb8QNuDCO4B8y0DlOdv0VqiOrB2TJM/ExQ2O nsqqunPITfATONSZwoy8NmE3Db5eDCdX9sb0aGVMUaH/EipNwfHnkX5lzLKNs2FeYe0r0BuaqdyuQ4Nw 6hWEdZjb6qWCVIvm/Q3YaatdHi+9oVeQPL9sZb4b4lmi6+eAlE6qG+/kV/q33DqP1cPDuWUbXIYa2U [file] sAzJy/ZPK9nh8qBAbtDovMk7he2oM+Jose D/9JRXEiVG9DtGWrZqAErx+igOXx5YukgBATd0fCn1CvLamx [file] Q0Dhm3FTE2HLQuKRp+PG7wMHk+De9Wz9UsguG7kuWnSNnkInI9KZuDLsYtXS0SQYi= ID Date Data Source [id number] 07/22/2019 07:38:59 AM EDT [facility] CT MAXILLOFACIAL WITHOUT CONTRAST 36648T INAL RESULTInterpreted by:Shawn Gonzalez, Fer Stroud MDINDICATION: Concern for CSF leakTECHNIQUE: Multidetector row helical CT of the maxillofacial bones was performed without administration of intravenous contrast, and processed with bone and soft tissue algorithms. Coronal and sagittal reformations were obtained. Automated dose lowering techniques and/or adjustment according to patient size were utilized for this exam.Comparison: None available at the time of this dictation.FINDINGS: No acute osseous abnormality. Nasal bones are normal. The mandible is intact. Pterygoid plates are intact. Zygomatic arches are intact. The temporomandibular joints are anatomically aligned. The globes are normal and symmetric, without proptosis, obvious disruption or lens dislocation. There is no orbital radiopaque foreign body. The orbital francisco are intact. The retrobulbar fat is without evidence of disruption. Extraocular muscles are normal and symmetric. The paranasal sinuses are clear. There is no fluid in the paranasal sinuses, mastoids, middle ear cavities, or pneumatized is portions of the petrous bones. Left and right ventriculoperitoneal catheters are partially imaged.IMPRESSION:No acute fractures or other osseous abnormalities. There is no fluid in the paranasal sinuses, mastoids, middle ear cavities, or pneumatized is portions of the petrous bones. This document has been electronically signed by Shawn Gonzalez MD on 07/22/2019 7:36 AM Name Value Range Interpretation Code Description Data Shelbi rce(s) Supporting Document(s) ID Date Data Source [id number] 07/22/2019 09:00:12 AM [facility] Cmnt XXX-Imp : NoneMicroorganism XXX Cult : 2019 nCoV Real-Time RT-PCR: NOT DETECTEDTest performed using the [employer] Xpert Xpress SARS-CoV-2 assay. This test is only for use under the Food and Drug Administration's Emergency Use Authorization. Additional information is available on the following FDA websites for health care providers and patients. https://www.fda.gov/media/826191/download , https://www.fda.gov/media/467803/download Name Value Range Interpretation Code Description Data Shelbi rce(s) Supporting Document(s) ID Date Data Source [id number] 07/22/2019 07:14:00 AM [facility] Cmnt XXX-Imp : NoneMicroorganism XXX Cult : 2019 nCoV Real-Time RT-PCR: NOT DETECTEDTest performed using the [employer] Xpert Xpress SARS-CoV-2 assay. This test is only for use under the Food and Drug Administration's Emergency Use Authorization. Additional information is available on the following FDA websites for health care providers and patients. https://www.fda.gov/media/074927/download , https://www.fda.gov/media/412247/download Name Value Range Interpretation Code Description Data Shelbi rce(s) Supporting Document(s) Microorganism identified in Unspecified specimen by [facility] This lab was ordered by [facility] and reported by [facility]. ID Date Data Source T807/22/2019 06:54:16 AM [facility] Value Range Interpretation Code Description Data Shelbi rce(s) Supporting Document(s) Prothrombin time (PT) 13.4 s 12.5-14.9 [facility] INR in Platelet poor plasma by Coagulation assay 1.01 [facility] Routine intensity oral anticoagulation I NR is typically 2.0-3.0. Target INR must be clinically individualized. ID Date Data Source T807/22/2019 07:24:46 AM [facility] Value Range Interpretation Code Description Data Shelbi rce(s) Supporting Document(s) Alpha 1 antitrypsin [Mass/volume] in Serum or Plasma 116 mg/dl 90-20 0 [facility] ID Date Data Source T807/22/2019 07:24:46 AM [facility] Value Range Interpretation Code Description Data Shelbi rce(s) Supporting Document(s) Acetaminophen [Mass/volume] in Serum or Plasma 10.0-30.0 L [facility] ID Date Data Source T807/22/2019 07:24:46 AM [facility] Value Range Interpretation Code Description Data Shelbi rce(s) Supporting Document(s) Ceruloplasmin [Mass/volume] in Serum or Plasma 21 mg/dl 16-45 [facility] ID Date Data Source T807/22/2019 07:24:46 AM [facility] Value Range Interpretation Code Description Data Shelbi rce(s) Supporting Document(s) Ferritin [Mass/volume] in Serum or Plasma 783 ng/ml 13-150 H [facility] ID Date Data Source T807/22/2019 07:24:46 AM [facility] Value Range Interpretation Code Description Data Shelbi rce(s) Supporting Document(s) Magnesium [Mass/volume] in Serum or Plasma 2.2 mg/dL 1.6-2.6 [facility] ID Date Data Source T807/22/2019 07:24:46 AM [facility] Value Range Interpretation Code Description Data Shelbi rce(s) Supporting Document(s) Phosphate [Mass/volume] in Serum or Plasma 3.7 mg/dL 2.5-4.5 [facility] ID Date Data Source 07/22/2019 08:05:06 AM [facility] Value Range Interpretation Code Description Data Shelbi rce(s) Supporting Document(s) Choriogonadotropin.beta subunit [Moles/volume] in Serum or Plasma <5 [facility] ID Date Data Source 07/22/2019 10:52:30 AM [facility] Value Range Interpretation Code Description Data Shelbi rce(s) Supporting Document(s) Iron [Mass/volume] in Serum or Plasma 94 ug/dl 37-145 [facility] Transferrin [Mass/volume] in Serum or Plasma 209 mg/dL 200-360 [facility] Iron binding capacity [Mass/volume] in Serum or Plasma 290 ug/dl 228 -428 [facility] Iron saturation [Mass Fraction] in Serum or Plasma 34.0 % 20-55 [facility] ID Date Data Source 07/23/2019 02:42:28 PM [facility] Value Range Interpretation Code Description Data Shelbi rce(s) Supporting Document(s) Nuclear Ab Pattern Homogenous [Titer] in Serum <80 [facility] Nuclear Ab pattern.speckled [Titer] in Serum <80 [facility] Nuclear Ab pattern.rim [Titer] in Serum <80 [facility] Nuclear Ab pattern.nucleolar [Titer] in Serum <80 [facility] ID Date Data Source T807/24/2019 10:05:28 PM [facility] Value Range Interpretation Code Description Data Shelbi rce(s) Supporting Document(s) Liver kidney microsomal 1 Ab [Units/volume] in Serum 0.0-2 0.0 [facility] (NOTE) Neg ative 0.0 - 20.0 Equivocal 20.1 - 24.9 Positive >24.9LKM type 1 antibodies are detected in patients withautoimmune hepatitis type 2 and in up to 8% ofpatients with chronic HCV infection.Performed At: [facility] [id number] Godwin MD Ph:[phone] ID Date Data Source [id number] 07/28/2019 10:05:24 PM [facility] Name Value Range Interpretation Code Description Data Shelbi rce(s) Supporting Document(s) Abbey Michelle virus DNA [#/volume] (viral load) in Serum or Plasma by Probe and target amplification method Negative [facility] (NOTE)No EBV DNA detected.The quantitati ve range of this assay is 100 to 1 million copies/mL.This test was developed and its performance characteristicsdetermined by [employer]. It has not been cleared or approved by theFood and Drug Administration.Performed At: [facility] [place], [place] [id number] Dash MD Ph:[phone] Abbey Michelle virus DNA [Log #/volume] (v iral load) in Unspecified specimen by Probe and target amplification method [facility] (NOTE)Unable to calculate result since n on-numeric result obtained forcomponent test. ID Date Data Source [id number] 07/31/2019 08:06:14 AM [facility] Name Value Range Interpretation Code Description Data Shelbi rce(s) Supporting Document(s) Cytomegalovirus DNA [Units/volume] (migdalia l load) in Plasma by Probe and target amplification method [facility] (NOTE)Quantity was not sufficient for an alysis.The quantitative range of this assay is 200 to 1 million IU/mL.This test was developed and its performance characteristicsdetermined by [employer]. It has not been cleared or approved by theFood and Drug Administration. The FDA has determined that suchclearance or approval is not necessary. Cytomegalovirus DNA [log units/volume] ( viral load) in Plasma by Probe and target amplification method [facility] (NOTE)Performed At: [facility] [address] [place], [place] [id number] Sanjai MD Ph:[phone] ID Date Data Source [id number] 07/22/2019 10:54:41 AM [facility] Name Value Range Interpretation Code Description Data Shelbi rce(s) Supporting Document(s) Hepatitis A virus IgM Ab [Presence] in Serum or Plasma by Im munoassay Non Reactive [facility] Hepatitis B virus core IgM Ab [Presence] in Serum or Plasma by Immunoassay Non Reactive [facility] IgM antibodies to HBc were not detected, does not exclude the possibility of exposure to HBV. Hepatitis C virus Ab [Presence] in Serum or Plasma by Immuno assay Non Reactive [facility] ConfirmedNo serological evidence of acti ve infection. If recent exposure is suspected, test for HCV RNA. Hepatitis B virus surface Ag [Presence] in Serum or Plasma b y Immunoassay Non Reactive [facility] ConfirmedNo active or previous infection . Susceptible to infection. ID Date Data Source [id number] 07/22/2019 06:00:36 AM [facility] Name Value Range Interpretation Code Description Data Shelbi rce(s) Supporting Document(s) Progress Note [facility] [id number]/TSRtyNMIbq4YsDBqeAMb0BFqiMYKjP8TtSCY6oN4eBPL9QJiFDaZvTfHdAVP2 lbm [file] dGE+DQogICAgICAgICAgICAgICAgICAgICAgICAgIC AgICAgICAgICAgICAgICAgICAgICAgICAgICAgICAgICAgICAgICAgICAgICAgICAgICAgICAgICAgIC AgICAgICAgICAgICAgDQogICAgICAgICAgICAgICAgICAgICAgICAgICAgICAgICAgICAgICAgICAgIC AgICAgICAgICAgICAgICAgICAgICAgICAgICAgICAg ICAgICAgICAgICAgICAgICAgICAgICAgDQogICAgICAgICAgICAgICAgICAgICAgICAgICAgICAgICAg ICAgICAgICAgICAgICAgICAgICAgICAgICAgICAgICAgICAgICAgICAgICAgICAgICAgICAgICAgICAg ICAgICAgDQogICAgICAgICAgICAgICAgICAgICAgIC AgICAgICAgICAgICAgICAgICAgICAgICAgICAgICAgICAgICAgICAgICAgICAgICAgICAgICAgICAgIC AgICAgICAgICAgICAgICAgDQogICAgICAgICAgICAgICAgICAgICAgICAgICAgICAgICAgICAgICAgIC AgICAgICAgICAgICAgICAgICAgICAgICAgICAgICAg ICAgICAgICAgICAgICAgICAgICAgICAgICAgDQogICAgICAgICAgICAgICAgICAgICAgICAgICAgICAg ICAgICAgICAgICAgICAgICAgICAgICAgICAgICAgICAgICAgICAgICAgICAgICAgICAgICAgICAgICAg ICAgICAgICAgDQogICAgICAgICAgICAgICAgICAgIC AgICAgICAgICAgICAgICAgICAgICAgICAgICAgICAgICAgICAgICAgICAgICAgICAgICAgICAgICAgIC AgICAgICAgICAgICAgICAgICAgDQogICAgICAgICAgICAgICAgICAgICAgICAgICAgICAgICAgICAgIC AgICAgICAgICAgICAgICAgICAgICAgICAgICAgICAg ICAgICAgICAgICAgICAgICAgICAgICAgICAgICAgDQogICAgICAgICAgICAgICAgICAgICAgICAgICAg ICAgICAgICAgICAgICAgICAgICAgICAgICAgICAgICAgICAgICAgICAgICAgICAgICAgICAgICAgICAg ICAgICAgICAgICAgDQogICAgICAgICAgICAgICAgIC AgICAgICAgICAgICAgICAgICAgICAgICAgICAgICAgICAgICAgICAgICAgICAgICAgICAgICAgICAgIC XsYXHxCNGbHKPnPRXzYYKkRWMuJYWoLRt9F0hgPWKeQUQfPI0yBWy4Pf8+XMvBUcEaHLN5tlKbhS7TUY 1gy3FxNGbvEJFch3ClQJg5XT6NUTYoNPjvLN3MHOij yx4YKCEmOWTuwSHFh2exHwXkUDZ8YJRbWtwyHU1GGOWxW2ielwMzDXWmYDCBGQ6FUmSwQ3RyiB17DSXU Cj4+XDxkcwPtIkrLIxI1SFFlq8YdDUl2FQ1URKGpApzwu5ShPIrmHXAUEZacZI4MXJE0HNU1PZHgAe0O UKYdH851xeBbNI0AHu3HElWtYA3eof1QSPkvDIYvSk fRMif7RJqmRD4MoMNxDOuHje0utlMaelONh0IzugDijUVQeOY1jC3mSAFPrNqjJECgGJKtNM1eVX1cDZ YvROM5RjW4ELAGTN2LQRKlWVGkvHCoCMEaXCGLKM6HDMfpZNH0TQLtlxZyqLMaTHkjVG6LUPBnhkJuVV cgMCBSDQo+Ha9ARH7oz7TsKNsdSZHbZH6zao5YPOaA NxPgE5J1iRQxV0M8EEiaSx9BIDGnEJSxNRVuPYMGSWnkDE5VLW1edhT0HM6UbIDeZCDvSBZpyGBtOOb0 Z55dzLToLVgsJN6YQVG+Tiffany+In7CEQNqHBVyAIVxBdFmNRISZlJtA5UtV8IQr1HkF3GcJH58jLnifsEi OVgaDD4LDL0zCXKjDZFDDN9TyZTabF9iaiSjGoEiHJ VGAcQxE63raQVxBMNiAIN7RZPfQs7LXIOcU6FhbdRdhLhjtmDgNENsCRVHPE5UQWiociUygNDvcPugAD 42gZteLI3USw8RXrIhIJ2rxh9UpQGcFg6NPNXxFD0KJORoNKWyQXKnTHY3MMOfDnRuCPjdNRXgNSLfXL Z5CDYpXWHvPB1PGiYfLBMdHPVyAMZxRLYoZNVhtp3U RKYxBXUdAdz6IrGxPMAzPPGePAjnCWZlKTBcQXP1XRPwJOQtDV9XMtEkWABiMKF7QiQxIUCpZGQlux0P YAQxJUIdUgW1GJUaBCEkJQQpJPzfURLeFOBbEGB2GZYfMWLaHY6RAkCiVDMuGGNwLdRoXEBlATCche0Z NONhRUAbNyOpEZFeNDTyMKLtZLxeBVUkHJJ0SiAhYS QiVITzSY7SLkJmKYTxQNW8RlXqZMVfMURdst5OBBAcRGGeDWv7CLXfUEIkDGXyGPazLZYoOOX9ZuRiYR QdJFVnOY3UHlRuFNOaXZB3MNmyFNRzNUWwjg5ROPXrSVHcObO4OWApZGZeUTKzGWglCAYxELS2RLKrKG TnBXKxTT6YFfReTPNjXKu1ZHXhPDShNWQtbq8QWNTp LUBaFZYbRxHbVANjYELiPUabLVEhFDM9ZXW5LHUiNLGzWJ8OBeNbTEsxLNSXWcn7PAoiF9k2GZCeKH5I G2Xls6QgOJmkJCJGFLvcFD0lvwCdZFCgYi8JH4gBCgosDVlmDWW3ZVJgXpzfBLS5WSX4JLX4UqfwS8Nf TIH5Ur3aLZBxSsGoQaxbRKYxWfD9OinoNgnrXXe5NN VyQBG2FLjvTxKuWX2EFq3CDhA5DDC4iATeOw8CPBWfQx1MDSEIX5OBSg== ID Date Data Source [id number] 07/22/2019 05:54:10 AM EDT [facility] Name Value Range Interpretation Code Description Data Shelbi rce(s) Supporting Document(s) ED Provider Note [facility] ZDDCIo4eSyPTZaPi58/UJJzcIJBul1CoOPslOCg7BOnzBNPzT2KhZPX3yG4bHQL0SMsWYkAcVnThIMT9 lbm [file] beK6QM5LqVBsLCBdKSCoxLCjLUh4C54lzLGwZJztCT3DVTW+Tiffany+Us6YGTEuGLUbQWHmBiZlBIGJSmPq H0OrV3BQs4TxI4VvRJ07xYqxwuJxOQefAF7KYF8iDY WtSSHOAC9YxVRjxY7wywVaBlXvUXLVWnJbR49dsCYuSSQsBVV2XEJmNt0MAKKkK0MivuEsmJkjcdIgPE YdFVKKRK2MSAzjgfWssILxxObtSS69kSfcIH4ETv1TXrZeTV6mzm1NaAFwWb1TBOV2Ap6WWGIyZXFeKD WhIXP0ELXlBmJzUGvjWXDmVMJkUHS7ZVFwTFGxSB1Z IoXmIGBoGdf4GuPwCZHpYKBifa4SDHQaWIN4HQQpVnCqDTApXVPqERkvGOKuCLQxOWE3NHJkDOQvHR0O TgLwKVDuRNWdADMsPVFoKQCyut7LJORmMAMnYaS4GQVaMWWhGCCkGCguXEYgXEI5RGN9YSMxKPBhLL1Z VjKnCESqRSN2EoEkSIXuXWFtfo8QYSOcJTRtOIlrKw XcNHPxEQLzYTejZWZdSDF5CRM5JWVpNFUiAM9LIiKdGKLeKCJ7KFCwGEUmXMXhaj3DPGWdMMMwBbz2FA QlTJNuHFFoLHkvPTFiCKA7ErM2EDOkZQOtDY4SNhTcSQMgVQW8GJCaTDWnYPNrtl4VCKIsVCLaJEUpYZ VzVKQwAWReZOmhTMIrCFY6GGB9CXQkPXBwMJ8OLlQg QVZyPlM0ETnyXZQiNRJknh1VRVTpDIVwCXkfYjJkNPRlFDOeDKvrOQRmYHPoBcShFNBfVRIyWN6LScUv BMBxTeK4TsFsIZBiKJBkrp6OJBOiYXEmBzH2XfWiJUOdGWKdKLdlYKOyWYR3GMCaAWOsVRJcVI8WQvCw XZBmMbRvADPqJPDqQVKotd2TAMUeUMItRIX8KnMqWM MpLVOcKAoeFZEaSZW1ILNfTNFdYJVaMR0PIeQmRRQpSbP6SVpzOOPyVNGini6AXQTjELQuHYzzEyDoCX CmDUQrGUagTPHfSRP6UhN6AKJbMACsEA6CDpOxMYGmJpj8GxGbAPRvRMEcys0SBVItLVCxDuv0CVGoFO WoDPOpBMitDSRfDPW3AUrxTLXxUJJqYO6BLtBoULNh JwmySytbZSUiJHMiyd5SLQKeXEVlKGS7YiCbWHKsDVIxOXdtVKQrUWN7FdPiJALlOXMnEE2BJgZbOAHr Rvm7VpbdOPSrFXSqpa2TQXYxZHBxADe4UlEqFYAaATVbNMrwEBBdFAOoSxJhXFWvAUWgSL8NLvLvFAOt DUU7SgOyWGAuNSYsxr9VXMBwEJI5QLH0SUOwTQTgIU PdEHonLJKuDILwZewkFZKfHLVcSU6PYpGpQOWePHI3JDvqMEIfZEVfht6LRUYdECY1HfQvDUFnKBHqFW RwTCk7loMwjILzXUb7WJ8OW0GxvhHzARTTTe0Mc111JUNeGZKnEn2JB7ixCm0xGTTwJMGPQs1ALWm7If xyPvzqGEUyBiT7UkoyTLGcZzHsCDS0ObipGqTiHrR+ NBmlAXNwB0ZnBUJsAspvHWMpKdZpHrSlKhfhQ4RwSPYuDU0cGUFGSu9+DQpzdGFydHhyZWYNCjQyMzY5 KKvcPRADQt9P ID Date Data Source [id number] 07/22/2019 01:29:18 AM EDT [facility] Name Value Range Interpretation Code Description Data Shelbi e(s) Supporting Document(s) Leukocytes [#/volume] in Blood by Automated count 10.2 10*3/uL 4-10 H [facility] Erythrocytes [#/volume] in Blood by Automated count 3.97 10*6/uL 4.1- 5.3 L [facility] Hemoglobin [Mass/volume] in Blood 12.5 g/dL 11.5-15.5 [facility] Hematocrit [Volume Fraction] of Blood by Automated count 37.4 % 3 6-45 [facility] Erythrocyte mean corpuscular volume [Entitic volume] by Auto mated count 94.4 fL 80-96 [facility] Erythrocyte mean corpuscular hemoglobin [Entitic mass] by Automated count 31.6 pg 27-33 [facility] Erythrocyte mean corpuscular hemoglobin concentration [Mass/volume] by Automated count 33.5 g/dL 32.0-36.0 [facility] Erythrocyte distribution width [Ratio] by Automated count 13.6 % 11.5-14.5 [facility] Platelets [#/volume] in Blood by Automated count 293 10*3/uL 150-400 [facility] Differential cell count method - Blood [facility] Neutrophils/100 leukocytes in Blood by Automated count 67 % [facility] Lymphocytes/100 leukocytes in Blood by Automated count 22 % [facility] Monocytes/100 leukocytes in Blood by Automated count 8 % [facility] Eosinophils/100 leukocytes in Blood by Automated count 2 % [facility] Basophils/100 leukocytes in Blood by Automated count 1 % [facility] Neutrophils [#/volume] in Blood by Automated count 6.90 10*3/uL 1.8-7 .0 [facility] Lymphocytes [#/volume] in Blood by Automated count 2.22 10*3/uL 1.2-4 .0 [facility] Monocytes [#/volume] in Blood by Automated count 0.82 10*3/uL 0-0.8 H [facility] Eosinophils [#/volume] in Blood by Automated count 0.19 10*3/uL 0-0.5 [facility] Basophils [#/volume] in Blood by Automated count 0.06 10*3/uL 0-0.2 [facility] Nucleated erythrocytes/100 leukocytes [Ratio] in Blood by Automated count 0 /100{WBCs} 0-0 [facility] ID Date Data Source [id number] 07/22/2019 01:52:28 AM EDT [facility] Hospital Name Value Range Interpretation Code Description Data Shelbi rce(s) Supporting Document(s) Albumin [Mass/volume] in Serum or Plasma by Bromocresol green (BCG) dye binding method 3.8 g/dL 3.5-5.2 [facility] Bilirubin.total [Mass/volume] in Serum or Plasma 0.5 mg/dL <1.2 [facility] Bilirubin.direct [Mass/volume] in Serum or Plasma 0.3 mg/dL <0.3 H [facility] Alkaline phosphatase [Enzymatic activity/volume] in Serum or Plasma 108 U/L 35-104 H [facility] Aspartate aminotransferase [Enzymatic activity/volume] in Serum or Plasma 555 U/L <32 [facility] Alanine aminotransferase [Enzymatic activity/volume] in Seru m or Plasma 285 U/L <33 H [facility] Protein [Mass/volume] in Serum or Plasma 6.4 g/dL 6.4-8.3 [facility] ID Date Data Source [id number] 07/22/2019 01:52:28 AM EDT [facility] Name Value Range Interpretation Code Description Data Shelbi rce(s) Supporting Document(s) Bicarbonate [Moles/volume] in Serum 21 mmol/L 22-29 L [facility] Chloride [Moles/volume] in Serum or Plasma 106 mmol/L 98-107 [facility] Creatinine [Mass/volume] in Serum or Plasma 0.73 mg/dL 0.50-0.90 [facility] Glucose [Mass/volume] in Serum or Plasma 86 mg/dL 70-140 [facility] Potassium [Moles/volume] in Serum or Plasma 3.6 mmol/L 3.4-5.1 [facility] Sodium [Moles/volume] in Serum or Plasma 139 mmol/L 136-145 [facility] Urea nitrogen [Mass/volume] in Serum or Plasma 11 mg/dL 6-20 [facility] Anion gap 3 in Serum or Plasma 12 mmol/L 8-15 [facility] Osmolality of Serum or Plasma by calculation 286 mosm/kg 275-300 [facility] Creatinine/Urea nitrogen [Mass Ratio] in Serum or Plasma 15 [facility] Calcium [Mass/volume] in Serum or Plasma 8.5 mg/dL 8.6-10.0 L [facility] Glomerular filtration rate/1.73 sq M pre dicted among non-blacks [Volume Rate/Area] in Serum or Plasma by Creatinine-based formula (MDRD) >6 0 [facility] Glomerular filtration rate/1.73 sq M pre dicted among blacks [Volume Rate/Area] in Serum or Plasma by Creatinine-based formula (MDRD) >60 [facility] ID Date Data Source [id number] 07/21/2019 11:39:51 PM EDT [facility] XR SKULL LIMITED [id number] RESULTInterp reted by:Elicia Campbell MDINDICATION: Shunt seriesTECHNIQUE: Multiple views of the skull, chest, and abdomen were obtained for the evaluation of a ventriculoperitoneal shunt.COMPARISON: None.FINDINGS: Shunt catheter tubing is seen exiting through the bilateral parietal bones. Catheter tubing is seen to traverse the soft tissues of the bilateral neck and descending over the bilateral anterior hemithorax. Catheter tubing terminates within the pelvis.There is no evidence for discontinuity. Sharp angulation of the left shunt, which crosses the midline in the lower pelvis, from right to left.The lungs are grossly clear and well- aerated without focal opacity, pleural effusion or pneumothorax. The bowel gas pattern is nonobstructive. Osseous structures appear intact.Surgical clips in right upper quadrant. There is a radiopaque catheter in the right upper quadrant. Uncertain etiology.IMPRESSION:There is no evidence for catheter tubing discontinuity. Sharp angulation of the left shunt catheter in the right hemipelvis extending to the left.This document has been electronically signed by Angeline Noland MD on 07/21/2019 11:37 PM Name Value Range Interpretation Code Description Data Shelbi rce(s) Supporting Document(s) ID Date Data Source [id number] 07/21/2019 11:39:51 PM EDT [facility] XR ABDOMEN AP SUPINE AND LATERAL VIEW [id number] [id number] RESULTInterpreted by:Elicia Campbell MDINDICATION: Shunt seriesTECHNIQUE: Multiple views of the skull, chest, and abdomen were obtained for the evaluation of a ventriculoperitoneal shunt.COMPARISON: None.FINDINGS: Shunt catheter tubing is seen exiting through the bilateral parietal bones. Catheter tubing is seen to traverse the soft tissues of the bilateral neck and descending over the bilateral anterior hemithorax. Catheter tubing terminates within the pelvis.There is no evidence for discontinuity. Sharp angulation of the left sh unt, which crosses the midline in the lower pelvis, from right to left.The lungs are grossly clear and well-aerated without focal opacity, pleural effusion or pneumothorax. The bowel gas pattern is nonobstructive. Osseous structures appear intact.Surgical clips in right upper quadrant. There is a radiopaque catheter in the right upper quadrant. Uncertain etiology.IMPRESSION:There is no evidence for catheter tubing discontinuity. Sharp angulation of the left shunt catheter in the right hemipelvis extending to the left.This document has been electronically signed by Angeline Noland MD on 07/21/2019 11:37 PM Name Value Range Interpretation Code Description Data Shelbi rce(s) Supporting Document(s) ID Date Data Source [id number] 07/21/2019 11:39:51 PM EDT [facility] XR CHEST FRONTAL AND LATERAL [id number] RESULTInterpreted by:Elicia Campbell MDINDICATION: Shunt seriesTECHNIQUE: Multiple views of the skull, chest, and abdomen were obtained for the evaluation of a ventriculoperitoneal shunt.COMPARISON: None.FINDINGS: Shunt catheter tubing is seen exiting through the bilateral parietal bones. Catheter tubing is seen to traverse the soft tissues of the bilateral neck and descending over the bilateral anterior hemithorax. Catheter tubing terminates within the pelvis.There is no evidence for discontinuity. Sharp angulation of the left shunt, which crosses the midline in the lower pelvis, from right to left.The lungs are grossly clear and well-aerated without focal opacity, pleural effusion or pneumothorax. The bowel gas pattern is nonobstructive. Osseous structures appear intact.Surgical clips in right upper quadrant. There is a radiopaque catheter in the right upper quadrant. Uncertain etiology.IMPRESSION:There is no evidence for catheter tubing discontinuity. Sharp angulation of the left shunt catheter in the right hemipelvis extending to the left.This document has been electronically signed by Angeline Noland MD on 07/21/2019 11:37 PM Name Value Range Interpretation Code Description Data [facility](s) Supporting Document(s) ID Date Data Source [id number] 07/21/2019 10:11:00 PM EDT [facility] Patient: NIMA DIAZ Observation Re port - [facility].VisitID: [id number] [place] [address] [phone], FRegistration Date/Time: 07/21/2019 12:33 Weight:104.3 kg (S). Height/Length:62 inches (S). 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 Difficile Colitis [Resolved]. 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 Medications:Tylenol Oral 650 mg, daily as needed, last dose 07/21/2019.Zofran ODT Oral 4mg, daily as needed, last dose 07/21/2019.Topamax Oral (Tablet 200 mg), 2x a day, last dose 07/21/2019.Ascorbic Acid Oral (Tablet 500 mg), 2x a day, last dose 07/21/2019.MetFORMIN HCl Oral 850mg, 2x a day every AM, last dose 07/21/2019.Ferrous Sulfate Oral (Tablet 325 (65 Fe) mg) 1 tablet, 2x a day, last dose 07/21/2019.BusPIRone HCl Oral (Tablet 10 mg) 1 tablet, 2x a day, last dose 07/21/2019.PROzac Oral (Capsule 40 mg) 1 capsule, daily, last dose 07/21/2019. Allergies:enoxaparin.(hives)Sulfa (Sulfonamide Antibiotics). Severe(Anaphylaxis)Tape.(rash). FAMILY HISTORYNo significant family medical history. (Electronically signed by Amol Kennedy, P.ATamara 07/21/2019 18:47) Name Value Range Interpretation Code Description Data Shelbi e(s) Supporting Document(s) ID Date Data Source [id number] 07/21/2019 02:55:00 PM EDT [facility] DATE OF EXAMINATION: 07/21/2019 13:45 ED T BRAIN W/O CONTRAST HISTORY: Severe headache TECHNIQUE: This CT exam was performed using the following dose reduction techniques:automatic exposure control, adjustment of mA and/or kV according to thepatient's size, and use of iterative reconstruction technique. Standard contiguous axial spiral imaging was obtained from the skull basethrough the vertex without contrast administration and with coronalreformatting. FINDINGS: BRAIN: Bifrontal ventriculoperitoneal shunts are noted with the tip of bothshunts projecting in the frontal horn of the lateral ventricles. There is nohydrocephalus. There are no extra-axial collections or any mass effect nor anyparenchymal hematomas. IMPRESSION: Bifrontal ventriculoperitoneal shunts as described above. Electronically signed in PS360 by: Lola Strickland M.D. 07/21/2019 14:50 EDT Name Value Range Interpretation Code Description Data Shelbi rce(s) Supporting Document(s) ID Date Data Source [id number] 07/27/2019 02:07:00 PM EDT [facility] Name Value Range Interpretation Code Description Data Shelbi rce(s) Supporting Document(s) BLOOD CULTURE, ROUTINE Final report . [facility] 07/27/19 1407: BLOOD CULT, RT previousl y reported as: Preliminary report BC RESULT[address] [facility] No aerobic or anaerobic growth in five d ays.Performed at: - [facility] [address] [id number] Director: Raquel Ledbetter MD, Phone: [phone]/24/20 1407: BC RESULT1 previously reported as: Comment No growth in 36 - 48 hours. Performed at: [facility] [address] [id number] Worm Farmer: Raquel Ledbetter MD, Phone: [phone] 07/24/19 1205: BC RESULT1 previously reported as: Comment No growth after 16-24 hours. Performed at: [facility] [address] [id number] Worm Farmer: Raquel Ledbetter MD, Phone: [phone] @ Edited by: @ Reason: [] ID Date Data Source [id number] 07/27/2019 02:05:00 PM EDT [facility] Name Value Range Interpretation Code Description Data Shelbi rce(s) Supporting Document(s) Blood Culture, Routine Final report [facility] ID Date Data Source [id number] 07/27/2019 02:05:00 PM EDT [facility] Name Value Range Interpretation Code Description Data Shelbi rce(s) Supporting Document(s) Result 1 [facility] No aerobic or anaerobic growth in five d ays. ID Date Data Source [id number] 07/21/2019 02:19:00 PM EDT [facility] TSYSORDER [id number] Name Value Range Interpretation Code Description Data Shelbi rce(s) Supporting Document(s) C REACTIVE PROTEIN 8.7 mg/L 0.0-3.0 [facility] ID Date Data Source [id number] 07/21/2019 02:19:00 PM EDT [facility] TSYSORDER [id number] Name Value Range Interpretation Code Description Data Shelbi rce(s) Supporting Document(s) MAGNESIUM 2.0 mg/dL 1.8-2.4 [facility] ID Date Data Source [id number] 07/21/2019 02:19:00 PM EDT [facility] TSYSORDER [id number] R [id number] Name Value Range Interpretation Code Description Data Shelbi rce(s) Supporting Document(s) CREATINE PHOSPHOKINASE 105 U/L 26-192 [facility] ID Date Data Source [id number] 07/21/2019 02:19:00 PM EDT [facility] TSYSORDER [id number] Name Value Range Interpretation Code Description Data Shelbi rce(s) Supporting Document(s) GLUCOSE 96 mg/dL 74-106 [facility] BLOOD UREA NITROGEN 10 mg/dL 7-18 [facility] ital CREATININE 0.6 mg/dL 0.6-1.0 [facility] SODIUM 140 mmol/L 136-145 [facility] POTASSIUM 5.1 mmol/L 3.5-5.1 [facility] CHLORIDE 106 mmol/L 98-107 [facility] CO2 20 mmol/L 21-[address] [facility] CALCIUM 9.1 mg/dL 8.5-10.1 [facility] ANION GAP 14.0 mmol/L 5-[address] [facility] GLOMERULAR FILTRATION RATE >90 mL/min [facility] GFR IS CALCULATED IN mL/min/1.73m2 JESICA L FUNCTION: >90MILDLY DECREASED: 60-89MILDY TO MODERATELY DECREASED: 45-59 MODERATELY TO SEVERELY DECREASED: 30-44SEVERELY DECREASED: 15-29RENAL FAILURE: <15 AST 33 U/L 15-37 [facility] ALT 55 U/L 12-78 [facility] ALKALINE PHOSPHATASE 97 U/L 46-116 [facility] pital TOTAL BILIRUBIN 0.3 mg/dL 0.2-1.0 [facility] TOTAL PROTEIN 7.4 g/dl 6.4-8.2 [facility] ALBUMIN 4.1 gm/dL 3.4-5.0 [facility] ID Date Data Source [id number] 07/21/2019 02:18:00 PM EDT [facility] TSYSORDER [id number] Name Value Range Interpretation Code Description Data Sehlbi rce(s) Supporting Document(s) PARTIAL THROMBOPLASTIN TIME 23.1 SECONDS 21.4-30.2 [facility] ID Date Data Source [id number] 07/21/2019 02:18:00 PM EDT [facility] TSYSORDER [id number] Name Value Range Interpretation Code Description Data Shelbi rce(s) Supporting Document(s) PROTHROMBIN TIME (PATIENT) 9.6 SECONDS 9.2-11.6 [facility] INR 0.92 0.87-1.06 [facility] ID Date Data Source [id number] 07/21/2019 02:17:00 PM EDT [facility] TSYSORDER [id number] Name Value Range Interpretation Code Description Data Shelbi rce(s) Supporting Document(s) LACTIC ACID 1.5 mmol/L 0.4-2.0 [facility] ID Date Data Source [id number] 07/21/2019 02:56:00 PM EDT [facility] TSYSORDER [id number] Name Value Range Interpretation Code Description Data Shelbi rce(s) Supporting Document(s) ERYTHROCYTE SEDIMENTATION RATE 20 mm/hr 0-20 [facility] ID Date Data Source [id number] 07/21/2019 02:25:00 PM EDT [facility] TSYSORDER [id number] Name Value Range Interpretation Code Description Data Shelbi rce(s) Supporting Document(s) TSH 1.18 uIU/mL 0.36-3.74 [facility] ID Date Data Source [id number] 07/21/2019 01:55:00 PM EDT [facility] TSYSORDER [id number] Name Value Range Interpretation Code Description Data Shelbi rce(s) Supporting Document(s) WHITE BLOOD COUNT 7.9 K/mm3 4.0-10.0 [facility] 4.36 M/mm3 4.00-5.50 [facility] HEMOGLOBIN 13.5 gm/dL 12.0-16.0 [facility] HEMATOCRIT 40.8 % 36.0-48.8 [facility] MEAN CELL VOLUME 93.6 fl 80-96 [facility] MEAN CORPUSCULAR HEMOGLOBIN 31.0 pg 27.0-31.0 [facility] MEAN CORPUSCULAR HGB CONC 33.1 g/dl 32.0-36.0 [facility] RED CELL DISTRIBUTION WIDTH 12.8 % 10.0-14.5 [facility] PLATELET COUNT 374 K/mm3 172-450 [facility] MEAN PLATELET VOLUME 9.2 fl 9.0-13.0 [facility] pital GRAN % 67.1 % 50-80.0 [facility] IG% 0.3 % 0.0-0.[address] [facility] LYMPH % 21.3 % 25.0-50.[address] [facility] MONO % 7.1 % 2.0-10.0 [facility] EOS % 3.4 % 0-5.0 [facility] BASO % 0.8 % 0.0-2.0 [facility] GRAN # 5.3 K/mm3 2.0-8.00 [facility] IG# 0.0 K/mm3 0.0-0.2 [facility] LYMPH # 1.7 K/mm3 1.0-5.0 [facility] MONO # 0.6 K/mm3 0.10-1.20 [facility] EOS # 0.3 K/mm3 0.0-0.5 [facility] BASO # 0.1 K/mm3 0.0-0.2 [facility] ID Date Data Source [id number] 07/27/2019 02:07:00 PM EDT [facility] Name Value Range Interpretation Code Description Data Shelbi rce(s) Supporting Document(s) BLOOD CULTURE, ROUTINE Final report . [facility] 07/27/19 1407: BLOOD CULT, RT previousl y reported as: Preliminary report BC RESULT1 Comment . [facility] No aerobic or anaerobic growth in five d ays.Performed at: [facility] [id number] Director: Raquel Ledbetter MD, Phone: [phone]/24/20 1407: BC RESULT1 previously reported as: Comment No growth in 36 - 48 hours. Performed at: [facility] [address] [id number] Worm Farmer: Raquel Ledbetter MD, Phone: [phone] 07/24/19 1205: BC RESULT1 previously reported as: Comment No growth after 16-24 hours. Performed at: [facility] [id number] Worm Farmer: Raquel Ledbetter MD, Phone: [phone] @ Edited by: @ Reason: [] ID Date Data Source [id number] 07/27/2019 02:05:00 PM EDT [facility] Name Value Range Interpretation Code Description Data Shelbi rce(s) Supporting Document(s) Blood Culture, Routine Final report [facility] ID Date Data Source [id number] 07/27/2019 02:05:00 PM EDT [facility] Name Value Range Interpretation Code Description Data Shelbi rce(s) Supporting Document(s) Result 1 [facility] No aerobic or anaerobic growth in five d ays. ID Date Data Source [id number] 07/21/2019 02:00:00 PM EDT [facility] TSYSORDER [id number] Name Value Range Interpretation Code Description Data Shelbi rce(s) Supporting Document(s) URINE AMPHETAMINES NEGATIVE <1000 ng/mL [facility] THC,URINE NEGATIVE <50 ng/mL [facility] URINE BARBITURATES NEGATIVE <300 ng/mL [facility] PCP,URINE NEGATIVE <25 ng/mL [facility] COCAINE, URINE NEGATIVE <300 ng/mL [facility] URINE,OPIATES NEGATIVE <300 ng/mL [facility] URINE,TCA NEGATIVE <1000 ng/mL [facility] IF A NEGATIVE RESULT IS OBTAINED AND ING ESTION OF TRICYCLICANTIDEPRESSANTS IS SUSPECTED, A SERUM SAMPLE SHOULD BEOBTAINED AND TESTED USING AN APPROPRIATE METHOD. URINE BENZODIAZEPINES NEGATIVE <300 ng/mL [facility] THESE TESTS ARE PERFORMED USING AN IMMU NOASSAY FOR THEQUALITATIVE DETERMINATION OF THE PRESENCE OF THE MAJORMETABOLITES OF DRUGS OF ABUSE. THESE TESTS ARE ONLY ASCREENING AND NOT CONFIRMATORY. CLINICAL CONSIDERATION ANDPROFESSIONAL JUDGMENT MUST BE APPLIED TO ANY DRUG OF ABUSETEST RESULT. ID Date Data Source [id number] 07/21/2019 01:33:00 PM [facility]T [id number] Name Value Range Interpretation Code Description Data Shelbi rce(s) Supporting Document(s) HCG URINE NEGATIVE NEGATIVE [facility] ID Date Data Source [id number] 07/21/2019 01:47:00 PM EDT [facility] TSYSORDER [id number] Name Value Range Interpretation Code Description Data Shelbi rce(s) Supporting Document(s) URINE COLOR. YELLOW [facility] URINE APPEARANCE SLIGHTY CLOUDY [facility] SPECIFIC GRAVITY,URINE 1.025 1.001-1.035 [facility] URINE LEUKOCYTE ESTERASE NEGATIVE NEGATIVE [facility] URINE NITRATE NEGATIVE NEGATIVE [facility] PH,URINE 6.5 5.0-9.0 [facility] URINE PROTEIN NEGATIVE mg/dL [facility]GATIVE [facility] GLUCOSE (UA) NEGATIVE mg/dL NEGATIVE [facility] URINE KETONE NEGATIVE mg/dL [facility]GATIVE [facility] UROBILINOGEN NORMAL(0.2-1) mg/dL 0-[address] [facility] URINE BILIRUBIN NEGATIVE NEGATIVE [facility] URINE BLOOD 3+(LARGE) NEGATIVE H [facility] ID Date Data Source [id number] 07/21/2019 01:47:00 PM EDT [facility] TSYSORDER [id number] Name Value Range Interpretation Code Description Data Shelbi rce(s) Supporting Document(s) URINE RBC 10-15 /hpf 0-[address] [facility] URINE WBC 3-5 /hpf 0-5 [facility] URINE EPITHELIAL CELLS 1+ /hpf 0 [facility] ID Date Data Source [id number] 07/07/2019 02:08:00 PM EDT [facility] [address] [place] [address] PHONE: [phone] FAX: [phone] Name .................. : JOE Knutson Acct Number.................. : [id number] ROOM. ................. : TR-07 MR Number ................... : [id number] Stay type ............. : E/R Discharge Date......... ... : Admit Date ......... : 07/06/19 Admit Phys .................... : VENERUS BR Date of ....... : 1990 Family Phys ................... : UNKNOWN Phone .................. : [phone] Age ................................ : 29 Film# .................. .:[id number] Sex ................................. : F Unsigned transcriptions are preliminary reports and do not represent a medical or legal document CT HEAD W/O CONTRAST [id number] COMPLETE:07/06/19 20:23 DLA [id number] Reason(s): Head Injury CT OF THE HEAD WITHOUT CONTRAST: COMPARISON: 06/19/19 FINDINGS: There are bilateral MANUAL EQUIPMENT MECHANIC shunt tubes present with their tips at the left and right lateral ventricles. There is decompression of the ventricles. There is no mass, mass effect, midline shift, extra-axial fluid collection or intracranial hemorrhage. No significant change is noted comparing to the previous study. The orbits are unremarkable along with the visualized paranasal sinuses. No suspicious osseous lesion or acute fracture is identified. IMPRESSION: Bilateral MANUAL EQUIPMENT MECHANIC shunt catheter tubes in place. No acute disease. No change from prior study. While performing the above CT examination, radiation dose reduction was accomplished utilizing automated exposure control, adjusting of the mA and kV based on the patient's body size and/or the use of imperative reconstructive techniques. CT dose: 852.5 mGycm Electronically Reviewed and Signed By Laith Sharpe MD , 07/07/19 14:08, TDS Transcribe Initials: DZ , Transcribe Date: 07/06/19 21:03, Dictation Date: Copy for: EMERGENCY DEPT via modem Copy for: 710 MED REC DISCHARGED Page 1 of 1 Name Value Range Interpretation Code Description Data Shelbi rce(s) Supporting Document(s) ID Date Data Source [id number] 07/06/2019 06:01:[address] [facility] [address] [facility] Emergency Department [address] [place] [address] Phone #: ext- [phone] 07/06/2019 17:58 Patient: NIMA DIAZ Sex: F : 1990 Age: 29yWEIGHT:104.3 kg (S) HEIGHT:62 inches (S) BMI:42.1ALLERGIES: Sulfa AntibioticsCHIEF COMPLAINT: headacheDIAGNOSIS: HeadacheLAB ORDERSOrder Description Priority Entered Acknowledged InitialedUrinalysis (Clean STAT 18:07/06/2019 18:14 Nikko Webster RN Physician;Urine Drug Screen STAT 18:07/06/2019 18:14 Maurisio Webster RN Physician;CBC w Diff STAT 18:07/06/2019 18:14 Maurisio Webster RN Physician;CMP STAT 18:07/06/2019 18:14 Maurisio Webster RN Physician;Blood Culture STAT 18:07/06/2019 18:14 [id number] X2 (Keyur Webster RN18:07/06/2019) Physician;Blood Culture STAT 18:13 07/06/2019 18:14 [id number] X2 (Sched Inocencio Webster RN18:23 07/06/2019) Physician;HCG Serum Qual STAT 18:14 07/06/2019 18:18 Maurisio Webster RN Physician;DIAGNOSTIC STUDY ORDERSOrder Description Priority Entered Acknowledged InitialedCT Head W/O Cont STAT 18:13 07/06/2019 18:14 Maurisio(Oxygen?(No)) Inocencio Webster RN Physician; NOTES: MANUAL EQUIPMENT MECHANIC shunt with possible recent trauma Reason for Study: Head Injury, HeadacheMEDICATION/IV/DRIP/FLUID ORDERS [address] [facility] Emergency Department [address] [place] [address] Phone #: ext- [phone] 07/06/2019 17:58 Patient: NIMA DIAZ Sex: F : 1990 Age: 29yOrder Description Priority Entered Acknowledged InitialedDilaudid IM 1 mg 18:18 07/06/2019 18:24 Maurisio(HIGH ALERT Inocencio Webster RNMEDICATION) Physician;Phenergan IM 25 18:18 07/06/2019 18:28 Gustavo (HIGH ALERT Inocencio Webster RNMEDICATION, Physician;NOW)Rocephin 20:24 07/06/2019 Cancelled: Physician Order 20:29(1gm/50mL) IVPB Beatriz Gonzalez R.NTamara1000 mg with Physician;Dextrose 50 mlspike bag (D5W)Rocephin IM 1000 20:29 07/06/2019 20:35 Rika Jo (NOW x1) Beatriz EstradaN. R.N.; Verbal order per; Inocencio Will PhysicianToradol IM 30 mg 20:53 07/06/2019 20:53 Rika Gerber(NOW x1) Rika Araujo R.N. R.NTamara; Verbal order per; Inocencio Will PhysicianZomiguel ODT PO 4 20:53 07/06/2019 20:53 Rika Chambersdamionjuice (NOW x1) Rika Araujo R.N. RNafisa; Verbal order per; Inocencio Will PhysicianGENERAL ORDERSOrder Description Priority Entered Acknowledged Initialed[Electronically signed by Inocencio Will (21:32 07/06/2019)][Electronically signed by Rika Sadlana R.N. (:36 07/07/2019)][Electronically locked by Rika Saldana R.N. (36 07/07/2019)] Name Value Range Interpretation Code Description Data Shelbi rce(s) Supporting Document(s) ID Date Data Source [id number] 07/06/2019 06:01:[address] [facility] [address] [facility] Emergency Department [address] [place] [address] Phone #: ext- [phone] 07/06/2019 17:58 Patient: NIMA DIAZ Sex: F : 1990 Age: 29yWeight: 104.3 kgHeight/Length: 62 in.BMI: 42.1ALLERGIES: Sulfa AntibioticsThe patient's Home Medications are listed below:THE FOLLOWING MEDICATIONS NEED TO BE RECONCILED: Ascorbic Acid Buffered Oral 500, 2x a day busPIRone HCl Oral (10 mg) 1 tablet, 2x a day Ferrous Sulfate Oral (325 (65 Fe) mg) 1 tablet, 2x a day metFORMIN HCl Oral (850 mg) 1 tablet, 2x a day Pharmacy [facility] PROzac Oral (40 mg) 1 capsule, daily Topamax Oral (200 mg) 1 tablet, 2x a day Tylenol Oral 325 mg, prn Zofran Oral (4 mg) 1 tablet, prnThe source(s) of the original Home Medication information:patientThe following Medications were given to the patient in the Emergency Department:Dilaudid [IM] IM 1 mg, administered: 07/06/2019 6:24:00 PMPhenergan [IM] IM 25 mg, administered: 07/06/2019 6:28:00 PMRocephin [IM] IM 1 gm, administered: 07/06/2019 8:35:00 PM [address] [facility] Emergency Department [address] [place] [address] Phone #: ext- [phone] 07/06/2019 17:58 Patient: NIMA DIAZ Sex: F : 1990 Age: 29yZofran ODT [PO] PO 4 mg, administered: 07/06/2019 8:53:00 PMToradol [IM] IM 30 mg, administered: 07/06/2019 8:53:00 PMThe following Medications were prescribed to the patient:None. Name Value Range Interpretation Code Description Data Shelbi rce(s) Supporting Document(s) ID Date Data Source [id number] 07/06/2019 06:01:[address] [facility] [address] [facility] Emergency Department [address] [place] [address] Phone #: ext [phone] 07/06/2019 17:58 Patient: NIMA DIAZ Sex: F : 1990 Age: 29yWeight: 104.3 kgHeight/Length: 62 inBMI: 42.1ALLERGIES: Sulfa Antibiotics Date/Time Medication Administered Medication OrderedGiven DILAUDID [IM] (HYDROMORPHONE Dilaudid IM 1 mg (HIGH ALERT18:24 07/06/2019 HCL) MEDICATION)Maurisio Webster RN Dose: 1 mg IMGiven PHENERGAN [IM] (PROMETHAZINE Phenergan IM 25 mg (HIGH ALERT18:28 07/06/2019 HCL) MEDICATION, NOW)Maurisio Webster RN Dose: 25 mg IMGiven ROCEPHIN [IM] (CEFTRIAXONE Rocephin IM 1000 mg (NOW x1)20:35 07/06/2019 SODIUM)Rika Araujo RTamaraNTamara Dose: 1 gm IMGiven TORADOL [IM] (KETOROLAC Toradol IM 30 mg (NOW x1)20:53 07/06/2019 TROMETHAMINE)Rika Araujo R.N. Dose: 30 mg IMGiven ZOFRAN ODT [PO] (ONDANSETRON Zofran ODT PO 4 mg (NOW x1)20:53 07/06/2019 HCL)An Interiano.NTamara Dose: 4 mg Oral Disintegrating Tablets PO Name Value Range Interpretation Code Description Data Shelbi rce(s) Supporting Document(s) ID Date Data Source [id number] 07/06/2019 06:01:[address] [facility] [address] [facility] Emergency Department [address] [place] [address] Phone #: ext- [phone] 07/06/2019 17:58 Patient: NIMA DIAZ Sex: F : 1990 Age: 29yAcute, poorly controlled post traumatic headache- resistant to treatment (Due to V-P shunt / head injury).No migraine headache.INSTRUCTIONSWarnings: HEAD INJURY PRECAUTIONS: An observer must check on the patient frequently for the next24 hours to confirm that the patient respo nds as expected, is not confused, has no new weakness ornumbness, and has no other problems.Follow-up:Follow up with your doctor tomorrow if not better. Call for an appointment. Reason for referral: evaluation,treatment and Head injury / headache / dysfunctional MANUAL EQUIPMENT MECHANIC shunt.Understanding of the discharge instructions verbalized by patient.AMA warnings: Oriented to person, place, and time. Gives appropriate answers and rational explanationof refusal of care. No indication for involuntary commitment is present, signs of psychosis, auditoryhallucinations, delusional thinking or suicidal ideations. No slurred speech, tangential thinking, visualhallucinations or homicidal ideations. Speaks coherently. Abstract thinking intact.Clinical Impression: the patient has the capacity to make decisions regarding the medical care offered.Relevant issues reviewed and discussed with the patient. Aware of suspected diagnosis suggested byscreening exam. The suspected diagnosis, based upon the initiated medical screening exam, is Headinjury / headache / dysfunctional MANUAL EQUIPMENT MECHANIC shunt and has been discussed with the patient. Acknowledgesunderstanding of the reasons for recommendations regarding medical treatment, medical tests, proceduresand transfer to other medical facility. The recommended medical care being refused is Transfer to higherlevel of care and has been discussed with the patient. The risks of refusing recommended care that weredisclosed are . Discharge instructions were provided to the patient.REFUSAL OF CARE STATEMENT (patient to review and sign in discharge instructions):I have read this paragraph. I un derstand that a doctor at this hospital wants to give me certain medicalcare. The doctor explained that care to me, and I understand what that care is. The doctor also explainedto me what could happen to me if I leave here without having that care, and I understand what he said. Iwant to leave this hospital without receiving the recommended care. [address] [facility] Emergency Department [address] [place] [address] Phone #: ext- [phone] 07/06/2019 17:58 Patient: NIMA DIAZ Sex: F : 1990 Age: 29y(Electronically signed by Inocencio Will, Physician 07/06/2019 21:32) Name Value Range Interpretation Code Description Data Shelbi rce(s) Supporting Document(s) ID Date Data Source [id number] 07/06/2019 06:01:[address] [facility] 1 Clinical Report - Nurses [facility] Emergency Department [address] [place] [address] Phone #: ext- [phone] 07/06/2019 17:58 Patient: NIMA DIAZ Sex: F : 1990 Age: 29yTRIAGEArrived by private vehicle. Historian: patient. ( presents with c/o hitting her head with door, hit R sidewhere her shunt is and since then she's had pain, lost vision in her R eye and vomited x2).Triage time: 18:03 07/06/2019. Acuity: LEVEL 3.Chief Complaint: (door hit head where her shunt is on R head).Alert. No acute distress.Location of injuries: head. This occurred (2.5 hrs). Occurred at home.Treatment LAMINATION INSPECTOR:Ice and took Tylenol. (325mg x3).SEPSIS SCREEN: Negative (no infection suspected/documented). --18:10 07/06/19 Nadine Brock RN18:03 07/06/19. BP: 131/99. MAP: 109. HR: 142. RR: 20. O2 saturation: 98%. Temp: 99.1 F. Pain levelnow: 9/10. --18:10 07/06/19 Nadine Brock, CELESTE.Weight: 104.3 kg stated. Height/Length: 62 inches Per Patient. BMI: 42.1. --18:08 07/06/19 Nadine Brock RN.MedicationsAscorbic Acid Buffered Oral 500, 2x a day. busPIRone HCl Oral (Tablet 10 mg) 1 tablet, 2x a day. Ferrous Sulfate Oral (Tablet 325 (65 Fe) mg) 1 tablet, 2x a day. metFORMIN HCl Oral (Tablet 850 mg) 1 tablet, 2x a day. PROzac Oral (Capsule 40 mg) 1 capsule, daily. Topamax Oral (Tablet 200 mg) 1 tablet, 2x a day. Tylenol Oral 325 mg, as needed. Zofran Oral (Tablet 4 mg) 1 tablet, as needed. --18:08 07/06/19 Nadine Brock RN Pharmacy [facility]. --18:14 07/06/19 Maurisio Webster RN.AllergiesSulfa Antibiotics. --18:08 07/06/19 Nadine Brock RN.PROBLEMS:INTERCRANIAL HYPERTENSION.Irritable bowel syndrome (disorder).Pseudotumor cerebrae.Tension- Type Headache.Seizure.Neck Pain. 2 Clinical Report - Nurses [facility] Emergency Department [address] [place] [address] Phone #: ext- [phone] 07/06/2019 17:58 Patient: NIMA DIAZ Sex: F : 1990 Age: 29y Migraine Headache. PCOS. Ovarian Cyst. --18:09 07/06/19 Nadine Brock RN. Medication/allergy information source: the patient and patient's previous visit record. --18:10 07/06/19 Nadine Brock RN. ADDITIONAL SURGERIES: Appendectomy. Cholecystectomy. Excision ganglion cyst (bl wrist). Excision of lipoma. Intracranial shunt [06/13/2018]. (Left side). Nasal septal deviation repair. Sinus Surgery. Tonsillectomy. Ventriculo Peritoneal Shunt Surgery [07/2015]. 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 --18:09 07/06/19 Nadine Brock RN. History PAST MEDICAL HX: Last normal menstrual period was 2 weeks ago. SOCIAL HX: Never smoker. No alcohol use or drug use. She was offered HIV testing but declined and hepatitis C testing but declined. She has not traveled outside the [place] Infectious disease exposure: No infectious disease exposure. SELF HARM ASSESSMENT: Self harm assessment was performed. The patient answered "no" to the question(s) "Have you recently felt down, depressed, or hopeless?". ABUSE ASSESSMENT: No report of abuse. NUTRITIONAL RISK ASSESSMENT: The nutritional risk assessment revealed no deficiencies. FUNCTIONAL ASSESSMENT: Functional assessment: no impairments noted. LEARNING NEEDS ASSESSMENT: The learning needs assessment revealed no barriers. FALL RISK ASSESSMENT: Fall risk assessment completed. No risk factors identified. SKIN INTEGRITY ASSESSMENT: Skin integrity risk assessment completed. No skin integrity risk identified. --18:10 07/06/19 Nadine Brock RN.PHYSICAL ORMHTVHSGS00:17 07/06/19. Ambulatory to room.GENERAL / NEURO / PSYCH: Alert. Oriented X 4. Appears anxious. Pupillary exam: Right pupil 4mm 3 Clinical Report - Nurses [facility] Emergency Department [address] [place] [address] Phone #: ext- [phone] 07/06/2019 17:58 Patient: NIMA DIAZ Sex: F : 1990 Age: 29y and round. Left pupil: 4mm, round and briskly reactive to light directly. HEENT: Pupils equal, round and reactive to light. Right frontal area: tenderness. RESPIRATORY: Respirations not labored. Chest nontender. Breath sounds within normal limits. CVS: Normal heart rate and rhythm. Pulses within normal limits. Capillary refill less than 2 seconds. GI / : Abdomen soft and nontender. EXTREMITIES: Extremities exhibit normal ROM. SKIN: Skin is warm and dry. --18:17 07/06/19 Maurisio Webster RN HEENT: ( 1816 pt stating vision almost normal slightly hazy). --18:42 07/06/19 Maurisio Webster RN.NURSING PROGRESS NOTESReassurance given. Two patient identifiers checked. Side rails up x 2. Bed placed in lowest position.Brakes of bed on. Patient ready for evaluation. --18:10 07/06/19 Nadine Brock RN Checked patient name and birthdate: patient confirmed. Clean catch urine collected; sample sent to lab for urinalysis and drug screen. Specimen labeled in the presence of the patient (1814). --18:17 07/06/19 Maurisio Webster RN 18:24 07/06/2019 Dilaudid (HYDROmorphone HCl) IM 1 mg given. Given in the right deltoid. Allergies verified and confirmed 5 rights. Information reviewed with patient including sedative warning. --18:24 07/06/19 Maurisio Webster RN Checked patient name and birthdate: patient confirmed. Blood samples drawn from the left antecubital space by tech: rainbow set: blood culture (1st set). (1824). --18:25 07/06/19 Maurisio Webster RN 18:28 07/06/2019 Phenergan (Promethazine HCl) IM 25 mg given. Given in the left deltoid. Allergie s verified and confirmed 5 rights. Information reviewed with patient including sedative warning. --18:28 07/06/19 Maurisio Webster RN Checked patient name and birthdate. Blood samples drawn by tech: blood culture (2nd set). (1849). --18:53 07/06/19 Maurisio Webster RN ( 1853 pt OOB to bathroom to void with no difficulty, pt stating head pain and nausea much better). --19:20 07/06/19 Maurisio Webster RN Care transferred (Gogo huitron). --19:20 07/06/19 Maurisio Webster RN Overall patient status is improved. ( sandfill operator at bedside reviewing hx form.). --19:28 07/06/19 Rika Araujo R.N. ( u/a collected and hand carried to the lab.). --19:39 07/06/19 Rika Araujo R.N. 20:35 07/06/2019 Rocephin (cefTRIAXone Sodium) IM 1 gm given. Given in the right gluteus pamela. Allergies verified and confirmed 5 rights. Information reviewed with patient including reason for taking this 4 Clinical Report - Nurses [facility] Emergency Department [address] [place] [address] Phone #: ext- [phone] 07/06/2019 17:58 Patient: NIMA DIAZ [facility]#: [id number] Sex: F : 1990 Age: 29y medication. Verbalizes understanding. --20:35 07/06/19 Rika Araujo R.N. 20:53 07/06/2019 Zofran ODT (Ondansetron HCl) PO Oral Disintegrating Tablets 4 mg given. Allergies verified and confirmed 5 rights. Information reviewed with patient including reason for taking this medication. Verbalizes understanding. --20:53 07/06/19 Rika Araujo R.N. 20:53 07/06/2019 Toradol (Ketorolac Tromethamine) IM 30 mg given. Given in the right gluteus pamela. Allergies verified and confirmed 5 rights. Information reviewed with patient including reason for taking this medication. Verbalizes understanding. --20:53 07/06/19 Rika Araujo R.N. ( While MD in process of making arrangements to transfer pt to higher level of care at [facility] in [place], pt decided that she wanted to go OUTPATIENT route. 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 --21:16 07/06/19 Rika Araujo R.N.DISPOSITION / DISCHARGE 18:54 07/06/2019 Dilaudid IM Response: pain is improving. Symptoms have improved the patient feels better. --19:19 07/06/19 Maurisio Webster RN 18:54 07/06/2019 Phenergan IM Response: symptoms have improved the patient feels better. --19:19 07/06/19 Maurisio Webster RN Departure time: 21:13 07/06/2019. Condition at departure: improved. No learning barriers present. Patient verbalized understanding. Written instruct ions provided in Omani. The patient left the Emergency Department against medical advice. The patient appears to be alert, oriented x4, coherent and in no acute distress. She notified staff prior to leaving the department. Notified the ED physician of patient departure. Prior to leaving, she was advised to return if needed. She was informed of the risks of leaving and verbalized understanding of these risks. Patient signed form prior to leaving. She left the Emergency Department ambulatory and via private vehicle. --21:18 07/06/19 Rika Araujo R.N. 21:00 07/06/19. BP: 148/81. MAP: 103. HR: 109. RR: 18. O2 saturation: 98%. Temp: 99.3 F. Pain level now: 06/12. --21:18 07/06/19 Rika Araujo R.N.Locked/Released at 07/07/2019 01:36 by Rika Araujo R.N. Name Value Range Interpretation Code Description Data Shelbi rce(s) Supporting Document(s) ID Date Data Source [id number] 07/06/2019 06:01:[address] [facility] 1 Clinical Report - Physicians/Mid Levels [facility] Emergency Department [address] [place] [address] Phone #: ext- [phone] 07/06/2019 17:58 Patient: NIMA DIAZ Sex: F : 1990 Age: 29y Time Seen: 18:00 07/06/2019. Arrived- By private vehicle. Historian- patient. RETURN VISIT: recently seen in this ED by another ED physician. Seen now for a new unrelated complaint. Disposition decision: 21:05 07/06/2019.HISTORY OF PRESENT ILLNESS Chief Complaint: HEADACHE. Is still present. Onset during light activity. This started just prior to arrival today. It was abrupt in onset. It is described as similar to previous headaches, "pain", pressure, sharp and well localized. Located in the right hemicranial and right parietal region. No neck pain. Not located in the facial region. When seen in the E.D., severity described as 9 / 10. Modifying factors: worsened by bright light and moving head. The patient has had blurred vision in the right eye (Temporary R eye blindness). The blurred vision involving the right eye has been moderate and has been associated with pain. She has had nausea and vomiting. No preceding symptoms, photophobia, numbness or weakness. (Pt. has MANUAL EQUIPMENT MECHANIC shunt and frequent visits to [facility] ED). No recent travel. Similar symptoms previously. Patient has had similar symptoms many times, chronically. Recent medical care: The patient was seen recently at this facility in the emergency department. ( Seen here in [facility] ED 2 weeks ago for abdominal pain).REVIEW OF SYSTEMSNo fever, muscle aches, sinus pressure, ear pain or sore throat. No carbon monoxide exposure, tick bite,head injury, chest pain or difficulty breathing. No cough, abdominal pain, diarrhea, pain with urination orskin rash. No enlarged lymph nodes or back pain.PAST HISTORYPast history not negative. See nurses notes. Hypertension. Diabetes mellitus. Neurological disease.GI disease. Other disease. DepressionHead InjuryIdiopathic Intracranial HypertensionHerpes ZosterCellulitisAltered Mental StatusAbdominal painChronic headaches / MigrainesIritable BowelPseudotumor cerebriPCOS 2 Clinical Report - Physicians/Mid Levels [facility] Emergency Department [address] [place] [address] Phone #: [phone] ext- [phone] 07/06/2019 17:58 Patient: NIMA DIAZ Sex: F : 1990 Age: 29y Sepsis Seizures Neck pain. Surgeries: Appendectomy. Cholecystectomy. Tonsillectomy. (V-P shunt Ganglion cyst excision - both wrists Lipoma excision Exploratory laparotomy LP shunt / LP shunt removal Nasal septal deviation repair Sinus surgery).SOCIAL HISTORYNever smoker. No alcohol use or drug use. No recent travel.ADDITIONAL NOTESThe nursing notes have been reviewed with agreement regarding the chief complaint, HPI, ROS, PMH andpatient medications and allergies.PHYSICAL EXAMVital Signs: 07/06/2019 18:03 BP: 131/99. MAP: 109. HR: 142. RR: 20. O2 saturation: 98%. Temp: 99.1F. Pain level now: 11/12. Have been reviewed and appear to be correct. Hypertensive. Tachycardic.Respiratory rate normal. Temperature normal. Oxygen saturation normal.Appearance: Alert. Anxious. Appears to be in pain. Patient in moderate distress. In distress. (Tenderarea on R parietal scalp).Eyes: Pupils equal, round and reactive to light. Eyes normal inspection.ENT: Nose normal. Pharynx normal.Neck: Normal inspection. Neck supple.CVS: Normal heart rate and rhythm. Heart sounds normal. Pulses normal.Respiratory: No respiratory distress. Painless inspiration. Breath sounds normal.Abdomen: Soft and nontender. No organomegaly.Back: Normal inspection.Skin: Skin warm and dry. Normal skin color. No rash. Normal skin turgor.Extremities: Extremities exhibit normal ROM. No lower extremity edema.Neuro: Oriented X 3. Alert. Mood/affect normal. Speech normal. Cranial nerves normal (as tested).No cerebellar findings. No motor deficit. No sensory deficit. Reflexes normal.LABS, X-RAYS, AND EKGLaboratory Tests: Laboratory tests have been ordered, with results reviewed and considered in themedical decision making process. Beta-HCG, Qual Serum: (SOPHY: 07/06/2019 18:27) ( MsgRcvd 07/06/2019 18:51) Final results Test Result Flag Units (Reference) HCG SERUM QUAL NEGATIVE (NORMAL: NEGAT HCG SERUM QL REENTER NEGATIVE (NORMAL: NEGAT { KIT LOT # [id number] ){ KIT EXP DATE 3 Clinical Report - Physicians/Mid Levels [facility] Emergency Department [address] [place] [address] Phone #: ext- [phone] 07/06/2019 17:58 Patient: NIMA DIAZ Sex: F : 1990 Age: [id number] ){ PROCEDURAL CONTROL VALID)Urinalysis: (SOPHY: 07/06/2019 19:45) ( [facility] 07/06/2019 20:13) Final results Test Result Flag Units (Reference) URINALYSIS URINALYSIS SOURCE R COLOR yellow (NORMAL: Yello CLARITY hazy (NORMAL: Clear SPEC GRAVITY 1.025 (1.001 - 1.030 pH 6 (5 - 9) GLUCOSE NORM (NORMAL: Negat BILIRUBIN NEG (NORMAL: Negat KETONE NEG (NORMAL: Negat PROTEIN 15 (NORMAL: Negat NITRITE NEG (NORMAL: Negat BLOOD 10 A (NORMAL: Negat LEUK EST NEG (NORMAL: Negat UROBILINOGEN NOR (less than 1.0 M ICROSCOPIC See Below WBC 0 - 1 (NORMAL: NONE RBC None Seen (NORMAL: NONE EPITHELIAL MANY A (NORMAL: NONE BACTERIA Trace (NORMAL: NONE MUCOUS 1+ (NORMAL: NONE CASTS See Below HYALINE CAST 0-1 A (NORMAL: None CRYSTALS See Below CALCIUM OX 3+ A (NORMAL: NONEDrug Screen- Urine: (SOPHY: 07/06/2019 19:45) ( [facility] 07/06/2019 20:21) Final results Test Result Flag Units (Reference) DRUG SCREEN URINE URINE DRUG SCREEN AMPHETAMINES NEGATIVE (NORMAL: NEGAT BARBITURATES NEGATIVE (NORMAL: NEGAT BENZO NEGATIVE (NORMAL: NEGAT COCAINE NEGATIVE (NORMAL: NEGAT THC NEGATIVE (NORMAL: NEGAT OPIATES NEGATIVE (NORMAL: NEGAT PCP NEGATIVE (NORMAL: NEGAT \\BLDo\\URINE DRUG SCREEN INTERPRETATION\\BLDx\\ THE CUTOFFF LEVELS FORDETECTION ARE FOLLOWS: AMPHETAMINES 1000 ng/mlBARBITUARATES 200 ng/ml BENZODIAZEPINES 100 ng/mlTHC 50 ng/ml PHENCYCLIDINE 25 ng/mlOPIATES 300 ng/ml COCAINE 300 ng/mlALL POSITIVES ARE CONSIDERED PRESUMPTIVE POSITIVE CONFIRMATION WILL BE PERFORMED AT [facility].CBC w Diff: (SOPHY: 07/06/2019 18:27) ( [facility] 07/06/2019 18:41) Final results Test Result Flag Units (Reference) CBC W/AUTOMATED DIFF COMPLETE BLOOD COUNT 4 Clinical Report - Physicians/Mid Levels [facility] Emergency Department [address] [place] [address] Phone #: ext- [phone] 07/06/2019 17:58 [id number] Sex: F : 1990 Age: 29y WBC 12.3 H 10/uL (4.2 - 11.0) RBC 4.47 10/uL (4.20 - 5.40) HEMOGLOBIN 13.7 g/dL (12.0 - 16.0) HEMATOCRIT 41.3 % (37.0 - 47.0) MCV 92.4 fL (81.0 - 101) MCH 30.6 pg (27.0 - 34.0) MCHC 33.2 g/dL (31.0 - 36.0) RDW 12.8 % (11.5 - 14.5) PLATELETS 400 10/uL (150 - 450) MPV 9.2 fL (7.4 - 10.4) NEUT 70.5 % (37.0 - 80.0) LYMPH 20.3 L % (25.0 - 40.0) MONO 5.9 % (3.0 - 8.0) EOS 2.2 % (0.0 - 7.0) BASO 0.7 % (0.0 - 2.5) %IG 0.4 H % (0.0 - 0.0) %NRBC 0.0 % (0.0 - 0.0) #NEUT 8.68 H 10/uL (2.00 - 6.90) #LYMPH 2.50 10/uL (0.60 - 3.40) #MONO 0.73 10/uL (0.00 - 0.90) #EOS 0.27 10/uL (0.00 - 0.70) #BASO 0.09 10/uL (0.00 - 0.20) #IG 0.05 10/uL (0.00 - 0.10) #NRBC 0.00 10/uL (0.00 - 0.00) MANUAL DIFF NOT INDICATED RBC MORPH NOT INDICATEDCMP: (SOPHY: 07/06/2019 18:27) ( MsgRcvd 07/06/2019 18:57) Final results Test Result Flag Units (Reference) COMPREHENSIVE METABOLIC PANEL COMPREHENSIVE METABOLIC PANEL SODIUM 138 mEq/L (134 - 153) POTASSIUM 3.7 mEq/L (3.6 - 5.0) CHLORIDE 104 mEq/L (98 - 107) CO2 21 L MEQ/L (22 - 30) GLUCOSE 107 MG/DL (65 - 110) BUN 17 MG/DL (7 - 21) CREATININE 0.8 MG/DL (0.7 - 1.5) BUN/CREAT 21 (8 - 27) TOTAL PROTEIN 7.6 G/DL (6.3 - 8.2) ALBUMIN 4.5 G/DL (3.9 - 5.0) GLOBULIN 3.1 GM/DL (2.4 - 3.2) A/G RATIO 1.5 (0.8 - 2.0) CALCIUM 9.1 MG/DL (8.4 - 10.2) TOTAL BILI <0.7 MG/DL (0.2 - 1.3) ALKALINE PHOS 89 U/L (38 - 126) SGOT/AST 23 U/L (5 - 40) SGPT/ALT 34 U/L (7 - 56) ANION GAP 13.0 mmol/L (8.0 - 16.0) AGE 29 yrs NON-AA GFR >60 mL/min AFR AMER GFR >60 mL/min Male GFR Interprentation 20-49 yrs >60 mL/min Rhaebh79-89 yrs >56 mL/min Normal 60-69 yrs >49 mL/min Normal 70-79yrs>42 mL/min Normal 80 and above >35 mL/min Normal Female GFRInterpretation 20-39 yrs >60 mL/min Normal 40-49 yrs >58 mL/minNormal 50-59 yrs >51 mL/min Normal 60-69 yrs >45 mL/min Nlesnr34-71 yrs >39 mL/min Normal 80 and above >32 mL/min Normal 5 Clinical Report - Physicians/Mid Levels [facility] Emergency Department [address] [place] [address] Phone #: ext- [phone] 07/06/2019 17:58 Patient: NIMA DIAZ Sex: F : 1990 Age: 29yCT Head W/O Cont: (SOPHY: 07/06/2019 18:13) ( MsgRcvd 07/06/2019 21:06) In ProgressCT HEAD W/O CONTRASTReason(s): Head InjuryTRANSPORTATION: WC IV? O2? Oxygen?(No) Room: ED: No CMTS: MANUAL EQUIPMENT MECHANIC shunt with possible recent trauma Exam CT HEAD W/[place] [address] PHONE: [phone] FAX: [phone] Name .................. : JOE Knutson Acct Number.................. : [id number] ROOM. ................. : TR-07 MR Number ................... : [id number] Stay type ............. : E/R Discharge Date......... ... : Admit Date ......... : 07/06/19 Admit Phys .................... : LADONNA CASAS Date of ....... : 1990 Family Phys ................... : UNKNOWN Phone .................. : [phone] Age ................................ : 29 Film# .................. .:[id number] Sex ................................. : F Unsigned transcriptions are preliminary reports and do not represent a medical o r legal document CT HEAD W/O CONTRAST [id number] COMPLETE:07/06/19 20:23 DLA [id number] Reason(s): Head Injury Headache CT OF THE HEAD WITHOUT CONTRAST: COMPARISON: 06/19/19 FINDINGS: There are bilateral MANUAL EQUIPMENT MECHANIC shunt tubes present with their tips at the left and right lateral ventricles. There is decompression of the ventricles. There is no mass, mass effect, midline shift, extra-axial fluid collection or intracranial hemorrhage. No significant change is noted comparing to the previous study. The orbits are unremarkable along with the visualized paranasal sinuses. No suspicious osseous lesion or acute fracture is identified. IMPRESSION: Bilateral MANUAL EQUIPMENT MECH[employer]IC shunt catheter tubes in place. No acute disease. No change from prior study. While performing the above CT examination, radiation dose reduction was accomplished utilizing automated exposure control, adjusting of the mA and kV based on the patient's body size and/or the use of imperative reconstructive techniques. CT dose: 852.5 mGycm Electronically Reviewed and Signed By DCTNAME , SIGNDATE, TDS Transcribe Initials: JIE , Transcribe Date: 07/06/19 21:03, Dictation Date: <<REPDIST>> 6 Clinical Report - Physicians/Mid Levels [facility] Emergency Department [address] [place] [address] Phone #: ext- [phone] 07/06/2019 17:58 Patient: NIMA IDAZ Sex: F : 1990 Age: 29y Page 1 of 1 . Note - Tests: (CT head - No acute disease. No change from 06/19/19.).PROGRESS AND PROCEDURESCourse of Care: 20:40 Jul 06 2019. Patient is stable. Symptoms better. 20:40 Jul [address] is unchanged from prior 06/19/19. Pt. still having severe headaches, but visual symptoms have abated. I spoke with Neurosurgeon (Dr. Jolley) and he wanted pt. sent to ED (Dr. Rosenthal). Transfer center auto-accepted to [facility] ED - Dr. Rosenthal. Will send by basic ambulance. 21:07 Jul 06 2019. Pt. has decided to leave AMA instead of transfer to [facility]. Will discharge. Critical care performed (120 minutes). Time is exclusive of separately billable procedures. Time includes: direct patient care, patient reassessment, coordination of patient care, interpretation of data (laboratory data and pulse oximetry), review of patient's medical records, medical consultation and documentation of patient care- see progress notes. Procedures included in critical care time: phlebotomy- see progress notes. Disposition: Discharged home (AMA).CLINICAL IMPRESSION Acute, poorly controlled post traumatic headache- resistant to treatment (Due to V-P shunt / head injury). No migraine headache.INSTRUCTIONS Warnings: HEAD INJURY PRECAUTIONS: An observer must check on the patient frequently for the next 24 hours to confirm that the patient responds as expected, is not confused, has no new weakness or numbness, and has no other problems. Follow-up: Follow up with your doctor tomorrow if not better. Call for an appointment. Reason for referral: evaluation, treatment and Head injury / headache / dysfunctional MANUAL EQUIPMENT MECHANIC shunt. Understanding of the discharge instructions verbalized by patient. AMA warnings: Oriented to person, place, and time. Gives appropriate answers and rational explanation of refusal of care. No indication for involuntary commitment is present, signs of psychosis, auditory 7 Clinical Report - Physicians/Mid Levels [facility] Emergency Department [address] [place] [address] Phone #: ext- [phone] 07/06/2019 17:58 Patient: [facility]IM[facility]IAZ [id number] Sex[facility] F : 1990 Age: 29y hallucinations, delusional thinking or suicidal ideations. No slurred speech, tangential thinking, visual hallucinations or homicidal ideations. Speaks coher ently. Abstract thinking intact. Clinical Impression: the patient has the capacity to make decisions regarding the medical care offered. Relevant issues reviewed and discussed with the patient. Aware of suspected diagnosis suggested by screening exam. The suspected diagnosis, based upon the initiated medical screening exam, is Head injury / headache / dysfunctional MANUAL E[employer]IPMENT MECHANIC shunt and has been discussed with the patient. Acknowledges understanding of the reasons for recommendations regarding medical treatment, medical tests, procedures and transfer to other medical facility. The recommended medical care being refused is Transfer to higher level of care and has been discussed with the patient. The risks of refusing recommended care that were disclosed are . Discharge instructions were provided to the patient. REFUSAL OF CARE STATEMENT (patient to review and sign in discharge instructions): I have read this paragraph. I understand that a doctor at this [facility] wants to give me certain medical care. The doctor explained that care to me, and I understand what that care is. The doctor also explained to me what could happen to me if I leave here without having that care, and I understand what he said. I want to leave this hospital without receiving the recommended care.(Electronically signed by Inocencio Will, Physician 07/06/2019 21:32) Name Value Range Interpretation Code Description Data Shelbi rce(s) Supporting Document(s) ID Date Data Source [id number] 07/06/2019 08:21:[address] [facility] Name Value Range Interpretation Code Description Data Shelbi rce(s) Supporting Document(s) DRUG SCREEN URINE [facility] URINE DRUG SCREEN Amphetamine [Presence] in Urine by Screen method NEGATIVE NORMAL: N EGATIVE [facility] BARBITURATES NEGATIVE NORMAL: NEGATIVE [facility] BENZO NEGATIVE NORMAL: NEGATIVE [facility] COCAINE NEGATIVE NORMAL: NEGATIVE [facility] Tetrahydrocannabinol [Presence] in Urine NEGATIVE NORMAL: NEGATIVE [facility] OPIATES NEGATIVE NORMAL: NEGATIVE [facility] Phencyclidine [Presence] in Urine by Screen method NEGATIVE NOR MAL: NEGATIVE [facility] \\BLDo\\URINE DRUG SCR EEN INTERPRETATION\\BLDx\\ THE CUTOFFF LEVELS FOR DETECTION ARE FOLLOWS: AMPHETAMINES 1000 ng/ml BARBITUARATES 200 ng/ml BENZODIAZEPINES 100 ng/ml THC 50 ng/ml PHENCYCLIDINE 25 ng/ml OPIATES 300 ng/ml COCAINE 300 ng/ml ALL POSITIVES ARE CONSIDERED PRESUMPTIVE POSITIVE CONFIRMATION WILL BE PERFORMED AT PHYSICIAN REQUEST. ID Date Data Source [id number] 07/06/2019 08:12:[address] [facility] Name Value Range Interpretation Code Description Data Shelbi rce(s) Supporting Document(s) [facility]ALYS[facility] SOURCE R [facility] al COLOR yellow NORMAL: Yellow [facility] CLARITY hazy NORMAL: Clear [facility] Specific gravity of Urine by Test strip 1.025 1.001 - 1.030 [facility] pH 6 5 - 9 [facility] Glucose [Mass/volume] in Urine by Test strip NORM NORMAL: Negat [facility] Bilirubin.total [Presence] in Urine by Test strip NEG NORMAL: Negative [facility] Ketones [Presence] in Urine by Test strip NEG NORMAL: Negative [facility] Protein [Mass/volume] in Urine by Test strip 15 NORMAL: Negat [facility] Nitrite [Presence] in Urine by Test strip NEG NORMAL: Negative [facility] BLOOD 10 NORMAL: Negative [facility] Leukocyte esterase [Presence] in Urine by Test strip NEG JESICA L: Negative [facility] Urobilinogen [Mass/volume] in Urine by Test strip NOR less melvi n 1.0 mg/dL [facility] MICROSCOPIC See Below [facility] ital WBC 0 - 1 NORMAL: NONE SEEN [facility] Erythrocytes [#/volume] in Urine by Test strip None Seen NORMAL: NON E SEEN [facility] EPITHELIAL MANY NORMAL: NONE SEEN [facility] Bacteria [Presence] in Urine sediment by Light microscopy Tr amanda NORMAL: NONE SEEN [facility] Mucus [Presence] in Urine sediment by Light microscopy 1+ NOR MAL: NONE SEEN [facility] Casts [#/area] in Urine sediment by Microscopy low power field See Be low [facility] Hyaline casts [#/area] in Urine sediment by Microscopy low p ower field 0-1 NORMAL: None Seen A [facility] Crystals [type] in Urine sediment by Light microscopy See Below [facility] CALCIUM OX 3+ NORMAL: NONE SEEN A [facility] ID Date Data Source [id number] 07/12/2019 08:10:00 AM EDT [facility] Name Value Range Interpretation Code Description Data Shelbi rce(s) Supporting Document(s) Bacteria identified in Blood by Culture [facility] NO GROWTH AFTER 5 DAYS ID Date Data Source [id number] 07/12/2019 01:29:[address] [facility] Name Value Range Interpretation Code Description Data Shelbi rce(s) Supporting Document(s) CULTURE BLOOD [facility] _CULTURE BLOOD_{ PRELIM TEST PERFORMED AT [address] [address] CLIA# [id number] SEE SCANNED REPORT ID Date Data Source [id number] 07/12/2019 01:28:[address] [facility] Name Value Range Interpretation Code Description Data Shelbi rce(s) Supporting Document(s) CULTURE BLOOD [facility] _CULTURE BLOOD_{ PRELIM TEST PERFORMED AT [address] [address] CLIA# [id number] SEE SCANNED REPORT ID Date Data Source [id number] 07/06/2019 06:57:[address] [facility] Name Value Range Interpretation Code Description Data Shelbi rce(s) Supporting Document(s) COMPREHENSIVE METABOLIC PANEL [facility] COMPREHENSIVE METABOLIC PANEL Sodium [Moles/volume] in Serum or Plasma 138 mEq/L 134 - 153 [facility] Potassium [Moles/volume] in Serum or Plasma 3.7 mEq/L 3.6 - 5.0 [facility] Chloride [Moles/volume] in Serum or Plasma 104 mEq/L 98 - 107 [facility] Carbon dioxide, total [Moles/volume] in Serum or Plasma 21 MEQ/L 22 - [address] [facility] Glucose [Mass/volume] in Serum or Plasma 107 MG/DL 65 - 110 [facility] BUN 17 MG/DL 7 - 21 [facility] Creatinine [Mass/volume] in Serum or Plasma 0.8 MG/DL 0.7 - 1.5 [facility] BUN/CREAT 21 8 - 27 [facility] Protein [Mass/volume] in Serum or Plasma 7.6 G/DL 6.3 - 8.2 [facility] Albumin [Mass/volume] in Serum or Plasma 4.5 G/DL 3.9 - 5.0 [facility] Globulin [Mass/volume] in Serum by calculation 3.1 GM/DL 2.4 - 3.2 [facility] A/G RATIO 1.5 0.8 - 2.0 [facility] Calcium [Mass/volume] in Serum or Plasma 9.1 MG/DL 8.4 - 10.2 [facility] Bilirubin.total [Mass/volume] in Serum or Plasma <0.7 MG/DL 0.2 - 1.3 [facility] Alkaline phosphatase [Enzymatic activity/volume] in Serum or Plasma 89 U/L 38 - 126 [facility] Aspartate aminotransferase [Enzymatic activity/volume] in Serum or Plasma 23 U/L 5 - 40 [facility] Alanine aminotransferase [Enzymatic activity/volume] in Seru m or Plasma 34 U/L 7 - 56 [facility] Anion gap 3 in Serum or Plasma 13.0 mmol/L 8.0 - 16.0 [facility] AGE 29 yrs [facility] NON-AA GFR >60 mL/min [facility] ital AFR AMER GFR >60 mL/min [facility] Male GFR In terprentation 20-49 yrs >60 mL/min Normal 50-59 yrs >56 mL/min Normal 60-69 yrs >49 mL/min Normal 70-79yrs >42 mL/min Normal 80 and above >35 mL/min Normal Female GFR Interpretation 20-39 yrs >60 mL/min Normal 40-49 yrs >58 mL/min Normal 50-59 yrs >51 mL/min Normal 60-69 yrs >45 mL/min Normal 70-79 yrs >39 mL/min Normal 80 and above >32 mL/min Normal ID Date Data Source [id number] 07/06/2019 06:50:[address] [facility] Name Value Range Interpretation Code Description Data Shelbi rce(s) Supporting Document(s) HCG SERUM QUAL NEGATIVE NORMAL: NEGATIVE [facility] HCG SERUM QL REENTER NEGATIVE NORMAL: NEGATIVE [facility] { KIT LOT # [id number] ){ KIT EXP DATE 01-02-21 ){ PROCEDURAL CONTROL VALID ) ID Date Data Source [id number] 07/06/2019 06:40:[address] [facility] Name Value Range Interpretation Code Description Data Shelbi rce(s) Supporting Document(s) CBC W/AUTOMATED DIFF [facility] COMPLETE BLOOD COUNT Leukocytes [#/volume] in Blood by Automated count 12.3 10^3/uL 4.2 - 11.[address] [facility] Erythrocytes [#/volume] in Blood by Automated count 4.47 10^6/uL 4. 20 - 5.40 [facility] Hemoglobin [Mass/volume] in Blood 13.7 g/dL 12.0 - 16.0 [facility] Hematocrit [Volume Fraction] of Blood by Automated count 41.3 % 3 7.0 - 47.0 [facility] Erythrocyte mean corpuscular volume [Entitic volume] by Auto mated count 92.4 fL 81.0 - 101 [facility] Erythrocyte mean corpuscular hemoglobin [Entitic mass] by Automated count 30.6 pg 27.0 - 34.0 [facility] Erythrocyte mean corpuscular hemoglobin concentration [Mass/volume] by Automated count 33.2 g/dL 31.0 - 36.0 [facility] Erythrocyte distribution width [Ratio] by Automated count 12.8 % 11.5 - 14.5 [facility] Platelets [#/volume] in Blood by Automated count 400 10^3/uL 150 - [address] [facility] Platelet mean volume [Entitic volume] in Blood by Automated count 9.2 fL 7.4 - 10.4 [facility] Neutrophils/100 leukocytes in Blood by Automated count 70.5 % 37. 0 - 80.0 [facility] Lymphocytes/100 leukocytes in Blood by Manual count 20.3 % 25.0 - 40.[address] [facility] Monocytes/100 leukocytes in Blood by Automated count 5.9 % 3.0 - 8.0 [facility] Eosinophils/100 leukocytes in Blood by Automated count 2.2 % 0.0 - 7.0 [facility] Basophils/100 leukocytes in Blood by Automated count 0.7 % 0.0 - 2.5 [facility] %IG 0.4 % 0.0 - 0.0 H [facility] al %NRBC 0.0 % 0.0 - 0.0 [facility] Neutrophils [#/volume] in Blood by Automated count 8.68 10^3/uL 2.00 - 6.[address] [facility] Lymphocytes [#/volume] in Blood by Automated count 2.50 10^3/uL 0.60 - 3.40 [facility] Monocytes [#/volume] in Blood by Automated count 0.73 10^3/uL 0.00 - 0.90 [facility] Eosinophils [#/volume] in Blood by Automated count 0.27 10^3/uL 0.00 - 0.70 [facility] Basophils [#/volume] in Blood by Automated count 0.09 10^3/uL 0.00 - 0.20 [facility] #IG 0.05 10^3/uL 0.00 - 0.10 [facility] #NRBC 0.00 10^3/uL 0.00 - 0.00 [facility] MANUAL DIFF NOT INDICATED [facility] RBC MORPH NOT INDICATED [facility] spital ID Date Data Source [id number] 06/24/2019 10:00:00 AM EDT [facility] [address] [place] [address] PHONE: [phone] FAX: [phone] Name .................. : JOE Knutson Acct Number.................. : [id number] ROOM. ................. : TR-02 Number ................... : [id number] Stay type ............. : E/R Discharge Date......... ... : 06/19/19 Admit Date ......... : 06/19/19 Admit Phys .................... : NISSA LIU Date of ....... : 1990 Family Phys ................... : UNKNOWN Phone .................. : [phone] Age ................................ : 29 Film# .................. .:[id number] Sex ................................. : F Unsigned transcriptions are preliminary reports and do not represent a medical or legal document CHEST 2 VIEWS [id number] COMPLETE:06/19/19 16:29 [facility] [place] [id number] Reason(s): MANUAL EQUIPMENT MECHANIC shunt, headache, [place] CHEST X-RAY: PA AND LATERAL VIEWS FINDINGS: Right-sided MANUAL EQUIPMENT MECHANIC shunt tubing present over the medial right hemithorax. The lung maddox are clear. The heart and mediastinum are normal. No acute disease and no change from 10/15/18. Electronically Reviewed and Signed By CHAITANYA WOLFF MD , 06/24/19 10:00, [facility] Transcribe Initials: JIE , Transcribe Date: 06/20/19 11:39, Dictation Date: Copy for: [facility] [place] via fax Copy for: EMERGENCY DEPT via [place] Copy for: 710 MED REC DISCHARGED Page 1 of 1 Name Value Range Interpretation Code Description Data Shelbi rce(s) Supporting Document(s) ID Date Data Source [id number] [facility]/24/2019 [facility]:59[facility] [address] [place] [address] PHONE: [phone] FAX: [phone] Name .................. : JOE Knutson Acct Number.................. : [id number] ROOM. ................. : TR-02 MR Number ................... : [id number] Stay type ............. : E/R Discharge Date......... ... : 06/19/19 Admit Date ......... : 06/19/19 Admit Phys .................... : NISSA LIU Date of ....... : 1990 Family Phys ................... : UNKNOWN Phone .................. : [phone] Age ................................ : 29 Film# .................. .:[id number] Sex ................................. : F Unsigned transcriptions are preliminary reports and do not represent a medical or legal document CT HEAD W/O CONTRAST [id number] COMPLETE:06/19/19 15:00 [facility] [address] Reason(s): MANUAL EQUIPMENT MECHANIC shunt, headache CT OF THE HEAD WITHOUT CONTRAST ENHANCEMENT: HISTORY: MANUAL EQUIPMENT MECHANIC shunt, headache COMPARISON: 03/04/19 FINDINGS: Bilateral frontal lateral ventricular shunts again identified with no signs of any changes in the size of the ventricles. No hydrocephalus noted. The basal cisterns and ventricles are otherwise normal with no acute disease. IMPRESSION: Bilateral shunts remain in good position with no acute disease or other change from 03/04/19. While performing the above CT examination, radiation dose reduction was accomplished utilizing automated exposure control, adjusting of the mA and kV based on the patient's body size and/or the use of imperative reconstructive techniques. CT dose: 831.5 mGycm Contrast agent in mL: 75 Isovue 370 Method of administration: Intravenous Electronically Reviewed and Signed By CHAITANYA WOLFF MD , 06/24/19 09:59, [facility] Transcribe Initials: DZ , Transcribe Date: 06/20/19 11:38, Dictation Date: Page 1 of 2 [facility] [address] [place] [address] PHONE: [phone] FAX: [phone] Name .................. : JOE Knutson Acct Number.................. : [id number] ROOM. ................. : TR-02 MR Number ................... : [id number] Stay type ............. : E/R Discharge Date......... ... : 06/19/19 Admit Date ......... : 06/19/19 Admit Phys .................... : NISSA LIU Date of ....... : 1990 Family Phys ................... : UNKNOWN Phone .................. : [phone] Age ................................ : 29 Film# .................. .:[id number] Sex ................................. : F Unsigned transcriptions are preliminary reports and do not represent a medical or legal document CT HEAD W/O CON TRAST 09649 COMPLETE:06/19/19 15:00 KBO 55792 Reason(s): MANUAL EQUIPMENT MECHANIC shunt, headache Copy for: SHE Woodard via fax Copy for: EMERGENCY DEPT via modem Copy for: 710 MED REC DISCHARGED Page 2 of 2 Name Value Range Interpretation Code Description Data Shelbi rce(s) Supporting Document(s) ID Date Data Source [id number] 06/23/2019 04:44:00 PM EDT [facility] [address] [place] [address] PHONE: [phone] FAX: [phone] Name .................. : JOE Knutson Acct Number.................. : [id number] ROOM. ................. : TR-02 MR Number ................... : [id number] Stay type ............. : E/R Discharge Date......... ... : 06/19/19 Admit Date ......... : 06/19/19 Admit Phys .................... : NISSA LIU Date of ....... : 1990 Family Phys ................... : UNKNOWN Phone .................. : [phone] Age ................................ : 29 Film# .................. .:[id number] Sex ................................. : F Unsigned transcriptions are preliminary reports and do not represent a medical or legal document CT ABD & PELVIS W/ IV ONLY 84297 COMPLETE:06/19/19 15:00 KBO 08711 Reason(s): L sided abd pain, NVD, hx MANUAL EQUIPMENT MECHANIC shunt, headache CT SCAN OF THE ABDOMEN AND PELVIS WITH CONTRAST: COMPARISON: 07/09/18 FINDINGS: Acute pathology is not identified at the lung bases. There is mild fatty infiltration of the liver without hepatic mass or biliary dilatation. The patient is status post cholecystectomy. The spleen, pancreas, adrenal glands and kidneys are unremarkable. There is no acute bowel pathology. Two MANUAL EQUIPMENT MECHANIC shunts are seen entering the peritoneal cavity. The uterus, adnexa and urinary bladder are unremarkable. Trace amount of free fluid is seen along the floor of the pelvis which may be physiologic in nature and are related to MANUAL EQUIPMENT MECHANIC shunt placement. There is no acute osseous abnormality. No acute bowel pathology, abscess and pneumoperitoneum are not seen. The appendix is not visualized, however evidence for appendicitis is not identified. IMPRESSION: Fatty liver. No hepatic mass or biliary dilatation. MANUAL EQUIPMENT MECHANIC shunt is noted. Small amount of free fluid along the floor of the pelvis possible physiologic in nature or related to MANUAL EQUIPMENT MECHANIC shunts. No suspicious adnexal mass. Normal size follicles noted in the ovaries with the largest follicle in the right ovary measuring 1.8 cm. Appendix not seen, however no evidence for appendicitis noted. No acute bowel pathology. Otherwise unremarkable examination. Page 1 of 2 [facility] [address] [place] [address] PHONE: [phone] FAX: [phone] Name .................. : JOE Knutson Acct Number.................. : [id number] ROOM. ................. : TR-02 Number ................... : [id number] Stay type ............. : E/R Discharge Date......... ... : 06/19/19 Admit Date ......... : 06/19/19 Admit Phys .................... : NISSA LIU Date of ....... : 1990 Family Phys ................... : UNKNOWN Phone .................. : [phone] Age ................................ : 29 Film# .................. .:[id number] Sex ................................. : F Unsigned transcriptions are preliminary reports and do not represent a medical or legal document CT ABD & PELVIS W/ IV ONLY 55598 COMPLETE:06/19/19 15:00 KBO 15994 Reason(s): L sided abd pain, NVD, hx MANUAL EQUIPMENT MECHANIC shunt, headache While performing the above CT examination, radiation dose reduction was accomplished utilizing automated exposure control, adjusting of the mA and kV based on the patient's body size and/or the use of imperative reconstructive techniques. CT dose: 1568 mGycm Contrast agent in mL: 75 Isovue 370 Method of administration: Intravenous Electronically Reviewed and Signed By Vaishali Pyle MD , 06/23/19 16:44, [facility] Transcribe Initials: JIE , Transcribe Date: 06/20/19 20:09, Dictation Date: Copy for: SHE Woodard via fax Copy for: EMERGENCY DEPT via modem Copy for: 710 MED REC DISCHARGED Page 2 of 2 Name Value Range Interpretation Code Description Data Shelbi rce(s) Supporting Document(s) ID Date Data Source [id number] 06/19/2019 12:28:[address] [facility] [address] [facility] Emergency Department [address] [place] [address] Phone #: [phone]- [phone] 06/19/2019 12:23 Patient: NIMA DIAZ Sex: F : 1990 Age: 29yWEIGHT:106.1 kg HEIGHT:62 inches BMI:42.8ALLERGIES: Sulfa AntibioticsCHIEF COMPLAINT: abdominal painDIAGNOSIS: Abdominal painLAB ORDERSOrder Description Priority Entered Acknowledged InitialedBlood Culture STAT 12:55 06/19/2019 13:00 romario Wood0m X2 (Sched Renzo BALBUENA; Pema Marcus12:55 06/19/2019)Blood Culture STAT 12:55 06/19/2019 13:09 romario Wood0m X2 (Sched Renzo BALBUENA; Pema Marcus13:05 06/19/2019)CBC w Diff STAT 12:55 06/19/2019 13:00 Renzo Wood; Pema MarcusClostridium Difficile STAT 12:55 06/19/2019 13:00 IsraelToxin Renzo BALBUENA; Pema MarcusCMP STAT 12:55 06/19/2019 13:00 Renzo Wood; Pema MarcusLactic Acid STAT 12:06/19/2019 13:00 Renzo Wood; Pema MarcusLipase STAT 12:55 06/19/2019 13:00 Renzo Wood; Pema MarcusBeta- HCG, Qual STAT 12:55 06/19/2019 13:00 IsraelUrine Renzo BALBUENA; Pema MarcusPT/PTT STAT 12:55 06/19/2019 13:00 Renzo Wood; Pema MarcusUrinalysis (Clean STAT 12:55 06/19/2019 13:00 Israel,Catch) Renzo BALBUENA; Pema MarcusDIAGNOSTIC STUDY ORDERSOrder Description Priority Entered Acknowledged InitialedCT Abd PEL W/ IV STAT 14:10 06/19/2019 14:30 Israel,Contrast Only Renzo BALBUENA; Pema Marcus(Oxygen?(No))(IV?(Yes)) Reason for Study: L sided abd pain, NVD, hx MANUAL EQUIPMENT MECHANIC shunt, headacheCT Head W/O Cont STAT 14:10 06/19/2019 14:30 Israel, [address] [facility] Emergency Department [address] [place] [address] Phone #: ext- [phone] 06/19/2019 12:23 Patient: NIMA DIAZ Sex: F : 1990 Age: 29y(Oxygen?(No)) Renzo BALBUENA; Pema Marcus Reason for Study: MANUAL EQUIPMENT MECHANIC shunt, headacheChest 2 View STAT 14:06/19/2019 14:30 Israel(Oxygen?(No)) Renzo Mcadams R.N. Reason for Study: MANUAL EQUIPMENT MECHANIC shunt, headache, NVMEDICATION/IV/DRIP/FLUID ORDERSOrder Description Priority Entered Acknowledged InitialedNS IV : Bolus 200 12:55 06/19/2019 13:08 Israel,mL, then 75 mL/hr Renzo BALBUENA; Pema Marcus(NOW x1)Zofran IVP 4 mg 12:55 06/19/2019 13:06 Renzo Wood R.N.Morphine IVP 4 mg 12:55 06/19/2019 13:09 Israel,(NOW x1, keep o2 Renzo BALBUENA; Pema R.N.sat > 90%, HIGHALERTMEDICATION)Morphine IVP 2 mg 14:29 06/19/2019 14:30 Israel,(NOW x1, keep o2 Renzo BALBUENA; Pema Marcussat > 90%, HIGHALERTMEDICATION)GENERAL ORDERSOrder Description Priority Entered Acknowledged InitialedNPO 12:55 06/19/2019 12:58 Nadine Brock; RNWarm blanket 12:55 06/19/2019 12:58 Nadine Brock; RN[Electronically signed by Pema Wood R.N. (15:36 06/19/2019)][Electronically signed by Renzo Nowak (21:49 06/19/2019)][Electronically locked by Pema Wood R.N. (15:36 06/19/2019)] Name Value Range Interpretation Code Description Data Shelbi rce(s) Supporting Document(s) ID Date Data Source [id number] 06/19/2019 12:28:[address] [facility] [address] [facility] Emergency Department [address] [place] [address] Phone #: ext- [phone] 06/19/2019 12:23 Patient: NIMA DIAZ Sex: F : 1990 Age: 29yWeight: 106.1 kgHeight/Length: 62 in.BMI: 42.8ALLERGIES: Sulfa AntibioticsThe patient's Home Medications are listed below:CONTINUE TAKING THE FOLLOWING MEDICATIONS: Ascorbic Acid Buffered Oral 500, 2x a day busPIRone HCl Oral (10 mg) 1 tablet, 2x a day Ferrous Sulfate Oral (325 (65 Fe) mg) 1 tablet, 2x a day metFORMIN HCl Oral (850 mg) 1 tablet, 2x a day PROzac Oral (40 mg) 1 capsule, daily Topamax Oral (200 mg) 1 tablet, 2x a day Tylenol Oral 325 mg, prn Zofran Oral (4 mg) 1 tablet, prnThe source(s) of the original Home Medication information:Not obtained.The following Medications were given to the patient in the Emergency Department:Zofran [IVP] IVP 4 mg, administered: 06/19/2019 1:06:00 PMNS [IV] IV Fluids bolus 200 mL wide open, then 75 mL/hr, administered: 06/19/2019 1:03:00 PMMorphine [IVP] IVP 4 mg, administered: 06/19/2019 1:09:00 PMMorphine [IVP] IVP 2 mg, administered: 06/19/2019 2:30:00 PM [address] [facility] Emergency Department [address] [place] [address] Phone #: ext- [phone] 06/19/2019 12:23 Patient: NIMA DIAZ Sex: F : 1990 Age: 29yThe following Medications were prescribed to the patient:None. Name Value Range Interpretation Code Description Data Shelbi rce(s) Supporting Document(s) ID Date Data Source [id number] 06/19/2019 12:28:[address] [facility] [address] [facility] Emergency Department [address] [place] [address] Phone #: ext- [phone] 06/19/2019 12:23 Patient: NIMA DIAZ Sex: F : 1990 Age: 29yWeight: 106.1 kgHeight/Length: 62 inBMI: 42.8ALLERGIES: Sulfa Antibiotics Date/Time Medication Administered Medication OrderedStart NS [IV] NS IV : Bolus 200 mL, then 7513:03 06/19/2019 Dose: IV Fluids mL/hr (NOW x1)Pema Wood R.N. Rate: 75 mL/hr over 10 hour(s)---- Bolus: 200 mL wide openStop Dispensed: 1000 mL bag15:35 06/19/2019 Site: #1MPema lim R.N.Given ZOFRAN [IVP] (ONDANSETRON HCL) Zofran IVP 4 mg13:06 06/19/2019 Dose: 4 mg IVPMPema lim R.NTamara Site: #1 right wristGiven MORPHINE [IVP] Morphine IVP 4 mg (NOW x1, keep13:09 06/19/2019 Dose: 4 mg IVP o2 sat > 90%, HIGH ALERTMattPema kaur R.NTamara Site: #1 right wrist MEDICATION)Given MORPHINE [IVP] Morphine IVP 2 mg (NOW x1, keep14:30 06/19/2019 Dose: 2 mg IVP o2 sat > 90%, HIGH ALERTMattPema kaur R.NTamara Site: #1 right wrist MEDICATION) Name Value Range Interpretation Code Description Data Shelbi rce(s) Supporting Document(s) ID Date Data Source [id number] 06/19/2019 12:28:[address] [facility] [address] [facility] Emergency Department [address] [place] [address] Phone #: ext- [phone] 06/19/2019 12:23 Patient: NIMA DIAZ Sex: F : 1990 Age: 29yAcute left upper quadrant and left lower quadrant abdominal pain of unknown cause.INSTRUCTIONSNo strenuous activity until better. Rest at home for one days. Do not work for three days.Drink plenty of fluids for the next 48 hours as needed. Avoid alcohol and NSAIDS. NSAIDS includeaspirin, ibuprofen (Advil) and naproxen (Aleve). Avoid fatty, fried/greasy, lactose- containing (such as milk,cheese and ice cream), salty and spicy foods until better. No sexual contact until symptoms resolve. Noalcohol. Do not smoke.(continue zofran as needed for nausea per dosing instructions).Warnings: Further evaluation is necessary in order to conduct further tests. It is very important to follow upwith a healthcare provider.GENERAL WARNINGS: Return or contact your physician immediately if your condition worsens orchanges unexpectedly, if not improving as expected, or if other problems arise. SPECIFICALLY, return ifyou develop pain in the back or shoulder, fever, vomiting, the inability to keep fluids down, blood invomitus, blood in diarrhea, fainting, lightheadedness or vaginal bleeding; or if there is no improvement inthe pain in the abdomen.Your Current Medications: Your current home medications have been reviewed.CONTINUE TAKING THE FOLLOWING MEDICATIONS:Ascorbic Acid Buffered Oral : 500 2x a day.busPIRone HCl Oral : Tablet 10 mg, 1 tablet 2x a day.Ferrous Sulfate Oral : Tablet 325 (65 Fe) mg, 1 tablet 2x a day.metFORMIN HCl Oral : Tablet 850 mg, 1 tablet 2x a day.PROzac O ral : Capsule 40 mg, 1 capsule daily.Topamax Oral : Tablet 200 mg, 1 tablet 2x a day.Tylenol Oral : 325 mg, prn.Zofran Oral : Tablet 4 mg, 1 tablet, prn.Follow- up:Follow up with your healthcare provider in three days even if well. Call for the next available appointment.Reason for referral: evaluation and recommend gastrenterology referral. Summary of care provided topatient via paper.Understanding of the discharge instructions verbalized by patient. Expected course of illness, dischargeinstructions, activity level, follow-up appointment and risks and benefits of treatment reviewed with patientand u nderstanding verbalized. Agrees to plan of care. [address] [facility] Emergency Department [address] [place] [address] Phone #: ext- [phone] 06/19/2019 12:23 Patient: NIMA DIAZ Sex: F : 1990 Age: 29y ADDITIONAL INFORMATIONUnknown Causes of Abdominal Pain (Female)The exact cause of your belly (abdominal) pain is not clear. This does not mean that this is somethingto worry about. Everyone likes to know the exact cause of the problem. But sometimes with bellypain, there is no clear-cut cause, and this could be a good thing. The good news is that yoursymptoms can be treated, and you will feel better.Your condition does not seem serious now. But sometimes the signs of a serious problem may takemore time to appear. For this reason, it is important for you to watch for any new symptoms,problems, or worsening of your condition.Over the next few days, the abdominal pain may come and go. Or it may be constant. Other commonsymptoms can include nausea and vomiting. Sometimes it can be difficult to tell if you feel nauseous.You may just feel bad and not connect that feeling to nausea. Constipation, diarrhea, and a fever maygo along with the pain.The pain may continue even if treated correctly over the following days. Depending on how things go,sometimes the cause can become clear and may need more or different treatment. Additional [address] [facility] Emergency Department [address] [place] [address] Phone #: ext- [phone] 06/19/2019 12:23 Patient: NIMA DIAZ Sex: F : 1990 Age: 29yevaluations, medicines, or tests may also be needed.Home careYour healthcare provider may prescribe medicine for pain, symptoms, or an infection. Follow thehealthcare provider's instructions for taking these medicines.General care Rest as much as you can until your next exam. No strenuous activities. Try to find positions that ease discomfort. A small pillow placed on the abdomen may help relieve pain. Something warm on your abdomen (such as a heating pad) may help, but be careful not to burn yourself.Diet Don't force yourself to eat, especially if having cramps, vomiting, or diarrhea. Water is important so you don't get dehydrated. Soup may also be good. Sports drinks may also help, especially if they are not too acidic. Don't drink sugary drinks as this can make things worse. Take liquids in small amounts. Don't guzzle them. Caffeine sometimes makes the pain and cramping worse. Don't take dairy products if you have vomiting or diarrhea. Don't eat large amounts at a time. Wait a few minutes between bites. Eat a diet low in fiber (called a low- residue diet). Foods allowed include refined breads, white rice, fruit and vegetable juices without pulp, tender meats. These foods will pass more easily through the intestine. Don't have whole-grain foods, whole fruits and vegetables, meats, seeds and nuts, fried or fatty foods, dairy, alcohol and spicy foods until your symptoms go away.Follow-up careFollow up with your healthcare provider, or as advised, if your pain does not begin to improve in thenext 24 hours.Call [phone] if any of these occur: [address] [facility] Emergency Department [address] [place] [address] Phone #: ext- [phone] 06/19/2019 12:23 Patient: NIMA DIAZ Sex: F : 1990 Age: 29y Trouble breathing Confusion Fainting or loss of consciousness Rapid heart rate SeizureWhen to seek medical adviceCall your healthcare provider right away if any of these occur: Pain gets worse or moves to the right lower abdomen New or worsening vomiting or diarrhea Swelling of the abdomen Unable to pass stool for more than 3 days Fever of 100.4F (38C) or higher, or as directed by your healthcare provider. Blood in vomit or bowel movements (dark red or black color) Yellow color of eyes and skin (jaundice) Weakness, dizziness Chest, arm, back, neck, or jaw pain Unexpected vaginal bleeding or missed period Can't keep down liquids or water and you are getting dehydrated [phone] [employer]. [address] [place] [address], [place] [address]. All rights reserved. This information is not intended as asubstitute for professional medical care. Always follow your healthcare professional's instructions.Leslie DietYour healthcare provider may recommend a bland diet if you have an upset stomach. It consists offoods that are mild and easy to digest. It is better to eat small frequent meals rather than 3 largemeals a day. [address] [facility] Emergency Department [address] [place] [address] Phone #: ext- [phone] 06/19/2019 12:23 Patient: NIMA DIAZ Sex: F : 1990 Age: 29yBeveragesOK: Fruit juices, non-caffeinated teas and coffee, non-carbonated watersAvoid: Carbonated beverage, caffeinated tea and coffee, all alcoholic beveragesBreadOK: Refined white, wheat or rye bread, prabhjot or soda crackers, Amanda toast, plain rolls, bagelsAvoid: Whole-grain breadCerealOK: Refined cereals: cooked or ready to eatAvoid: Whole-grain cereals and granola, or those containing bran, seeds or nutsDessertsOK: Peanut butter and all others except those to "avoid"Avoid: Chocolate, cocoa, coconut, popcorn, nuts, seeds, jam, marmaladeFruitsOK: Canned, cooked, frozen or fresh fruits w ithout seeds or tough skinAvoid: Olives, skin and seeds of fruit, dried fruitMeats [address] [facility] Emergency Department [address] [place] [address] Phone #: ext- [phone] 06/19/2019 12:23 Patient: NIMA DIAZ Sex: F : 1990 Age: 29yOK: All fresh or preserved meat, fish and fowlAvoid: Any that are prepared with those spices to "avoid"Cheese and eggsOK: Eggs, cottage cheese, cream cheese, other cheesesAvoid: All cheeses made with those spices to "avoid"Potatoes and pastaOK: Potato, rice, macaroni, noodles, spaghettiAvoid: NoneSoupsOK: All soups without heavy seasoningAvoid: Soups made with those spices to "avoid"VegetablesOK: Canned, cooked, fresh or frozen mildly flavored vegetables without seeds, skins or coarse fiberAvoid: Vegetables prepared with those spices to "avoid"; skin and seeds of vegetables and those withcoarse fiber, broccoli, cabbage, cauliflower, cucumber, green peppers, and cornSpicesOK: Salt, lemon and limejuice, vinegar, all extracts, marisa, cinnamon, thyme, mace, allspice, paprikaAvoid: [place] powder, cloves, pepper, seed spices, garlic, gravy pickles, highly seasoned saladdressings [id number] [employer]. [address] [place] [address]. All rights reserved. This information is not intended as asubstitute for professional medical care. Always follow your healthcare professional's instructions.Clear Liquid Diet [address] [facility] Emergency Department [address] [place] [address] Phone #: [phone] 06/19/2019 12:23 Patient: NIMA DIAZ Sex: F : 1990 Age: 29yClear liquids are any liquid that you can see through. They are also very easy to digest. You may beput on a clear liquid diet if you are recovering from irritation or infection of the stomach or intestinaltract. This diet may also be used before surgery or special procedures such as a colonoscopy. Youshould not be on this diet for more than 3 days. Below are some clear liquids you can have on thisdiet.Adults and children over 2 years oldAdults should drink a total of 2 to 3 quarts of liquid per day. It may be easier to drink small frequentservings rather than a few large ones. Liquids can include: Fruit juices. Strained orange juice or lemonade (no pulp); apple, grape, and cranberry juice; clear fruit drinks Beverages. Sport drinks, sodas, mineral water (plain or flavored), tea, black coffee, liquid gelatin (add twice the recommended amount of water) Soups. Clear broth Desserts. Plain gelatin, popsicles, fruit juice barsChildren under 2 years oldOral rehydration fluids are available at drug stores and most grocery stores. You don't need aprescription. [id number] [employer]. [address] [place] [address]. All rights reserved. This information is not intended as asubstitute for professional medical care. Always follow your healthcare professional's instructions. You have been given the following additional information: Abdominal Pain, Unknown Cause, (Female) Diet, Leslie (Adult) Clear Liquid Diet [address] [facility] Emergency Department [address] [place] [address] Phone #: ext- [phone] 06/19/2019 12:23 Patient: NIMA DIAZ Sex: F : 1990 Age: 29yNo strenuous activity until better. Rest at home for one days. Do not work for three days.(Electronically signed by SREE Jean 06/19/2019 21:49) Name Value Range Interpretation Code Description Data Shelbi rce(s) Supporting Document(s) ID Date Data Source [id number] 06/19/2019 12:28:[address] [facility] 1 Clinical Report - Nurses [facility] Emergency Department [address] [place] [address] Phone #: ext- [phone] 06/19/2019 12:23 Patient: NIMA DIAZ Sex: F : 1990 Age: 29yTRIAGEArrived by private vehicle. Historian: patient.Triage time: 12:24 06/19/2019. Acuity: LEVEL 3.Chief Complaint: ABDOMINAL PAIN, NAUSEA, VOMITING and DIARRHEA.Alert.Onset. (3 weeks). The patient has had fever, nausea, vomiting, diarrhea and abdominal pain. ( 2 negcovid's recently.). --12:30 06/19/19 Pema Wood R.N.12:24 06/19/19. BP: 151/106. HR: 130. RR: 18. O2 saturation: 98%. Temp: 97.8 F. Pain level now 9/10.--12:30 06/19/19 Pema Wood R.N.Weight: 106.1 kg. Height/Length: 62 inches. BMI: 42.8. --12:24 06/19/19 Pema Wood R.N.MedicationsPROzac Oral (Capsule 40 mg) 1 capsule, daily. --13:29 06/19/19 Pema Wood R.N. busPIRone HCl Oral (Tablet 10 mg) 1 tablet, 2x a day. --13:29 06/19/19 Pema Wood R.N. Ferrous Sulfate Oral (Tablet 325 (65 Fe) mg) 1 tablet, 2x a day. --13:30 06/19/19 Pema Wood R.N. metFORMIN HCl Oral (Tablet 850 mg) 1 tablet, 2x a day. --13:30 06/19/19 Pema Wood R.N. Ascorbic Acid Buffered Oral 500, 2x a day. --13:30 06/19/19 Pema Wood R.N. Topamax Oral (Tablet 200 mg) 1 tablet, 2x a day. --13:30 06/19/19 Pema Wood R.N. Zofran Oral (Tablet 4 mg) 1 tablet, as needed. --13:31 06/19/19 Pema Wood R.N. Tylenol Oral 325 mg, as needed. --13:31 06/19/19 Pema Wood R.N.AllergiesSulfa Antibiotics. --12:46 06/19/19 Pema Wood R.N.HistoryPAST MEDICAL HX: Diabetes mellitus. Last normal menstrual period was 1 week ago.SURGERY HX: Appendectomy. Cholecystectomy. Tonsillectomy.SOCIAL HX: Never smoker. No alcohol use or drug use. The patient was offered HIV testing butdeclined. The patient has not traveled outside the [place]Infectious disease exposure: No infectious disease exposure. Patient is not a known carrier of tuberculosis,hepatitis, HIV, MRSA or VRE. Patient is not a known carrier of CRE.SELF HARM ASSESSMENT: Self harm assessment was performed. The patient answered "no" to thequestion(s) "Have you recently felt down, depressed, or hopeless?", "Do you have thoughts of harming orkilling yourself?", "Do you have a plan for harming or killing yourself?", "Have you recently had thoughtsabout harming or killing others?", "Do you have any dangerous items in your possession?", "Have you 2 Clinical Report - Nurses [facility] [address] [place] [address] Phone #: [phone] ext- [phone] 06/19/2019 12:23 Patient: NIMA DIAZ Sex: F : 1990 Age: 29y noticed less interest or pleasure in doing things?", "Are you here because you tried to hurt yourself?" and "Have you ever tried to hurt yourself before today?". ABUSE ASSESSMENT: Abuse assessment: deferred. Abuse denied. No suspicion of abuse. NUTRITIONAL RISK ASSESSMENT: The nutritional risk assessment revealed no deficiencies. FUNCTIONAL ASSESSMENT: Functional assessment: no impairments noted. LEARNING NEEDS ASSESSMENT: The learning needs assessment revealed no barriers. FALL RISK ASSESSMENT: Fall risk assessment completed. Risk factors identified include patient medications. SKIN INTEGRITY ASSESSMENT: Skin integrity risk assessment completed. No skin integrity risk identified. --12:30 06/19/19 Pema Wood R.N. Interventions Identification band on patient. To treatment room. --12:30 06/19/19 Pema Wood R.N.PHYSICAL ASSESSMENTGENERAL / NEURO / PSYCH: Alert. Oriented X 4.RESPIRATORY: Respirations not labored.GI / : The patient has had nausea and diarrhea. Abdominal tenderness. Bowel sounds within normallimits.SKIN: Skin is warm and dry. --12:31 06/19/19 Pema Wood R.N. Ambulatory to room. --12:32 06/19/19 Pema Wood R.N.NURSING PROGRESS NOTESThree patient identifiers checked. Call light placed in reach. Bed placed in lowest position. --12: Pema Wood R.N. 13:03 06/19/2019 Started bag #1 1000 mL IV Fluids NS; bolus of 200 mL wide open then at 75 mL/hr over 10 hour(s) via site #1 via IV pump. Allergies verified and confirmed 5 rights. IV patency established. IV site checked: no pain, redness, or swelling. IV flushed thoroughly pre- and post- medication administration. Information reviewed with patient. Verbalizes understanding. --13:08 06/19/19 Pema Wood R.N. 13:06 06/19/2019 Site #1 started via IV in the right wrist with an 20g angiocath, with aseptic technique and good blood return; one attempt. Saline lock flushed with 10 mL saline. --13:06/19/19 Pema Wood R.N. 13:06/19/2019 Zofran (Ondansetron HCl) IVP 4 mg given over 3 minute(s) via site #1. Allergies verified and c onfirmed 5 rights. IV patency established. IV site checked: no pain, redness, or swelling. IV flushed 3 Clinical Report - Nurses [facility] [address] [place] [address] Phone #: ext- [phone] 06/19/2019 12:23 ---- Patient: NIMA DIAZ Sex: F : 1990 Age: 29y thoroughly pre- and post-medication administration. Information reviewed with patient. Verbalizes understanding. --13:06/19/19 Pema Wood R.N. 13:06/19/2019 Morphine IVP 4 mg given over 5 minute(s) via site #1. Allergies verified and confirmed 5 rights. IV patency established. IV site checked: no pain, redness, or swelling. IV flushed thoroughly pre- and post-medication administration. Information reviewed with patient. Verbalizes understanding. --13:06/19/19 Pema Wood R.N. Overall patient status is improved- she states feels better. --13:06/19/19 Pema Wood R.N. 13:14 06/19/19. BP: 143/107. HR: 104. RR: 16. O2 saturation: 98%. Pain level now 6/10. --13:16 06/19/19 Pema Wood R.N. Call light placed in reach. Side rails up x 2. Bed placed in lowest position. --13:16 06/19/19 Pema Wood R.N. 14:30 06/19/2019 Morphine IVP 2 mg given over 3 minute(s) via site #1. Allergies verified and confirmed 5 rights. IV patency established. IV site checked: no pain, redness, or swelling. IV flushed thoroughly pre- and post-medication administration. Information reviewed with patient. Verbalizes understanding. --14:30 06/19/19 Pema Wood R.N. 15:35 06/19/2019 IV Fluids NS via IV site #1 Discontinued: infused. Total amount infused: 1000 mL. IV patency established. IV site checked: no pain, redness, or swelling. IV flushed thoroughly. --15:35 06/19/19 Pema Wood R.N.DISPOSITION / DISCHARGE Condition at departure: improved. No learning barriers present. Discharge instructions provided and reviewed with the patient. Reviewed medication(s). Activity restrictions reviewed. Work note given. Patient verbalized understanding. Written instructions provided in Omani. The patient was discharged home. She left ambulatory and via private vehicle. Family member driving. --15:35 06/19/19 Pema Wood R.N. 15:34 06/19/19. BP: 136/90. HR: 100. RR: 18. O2 saturation: 100%. Temp: 98.3 F. Pain level now 06/12. --15:35 Pema Wood R.N.Locked/Released at 06/19/2019 15:36 by Pema Wood R.N. Name Value Range Interpretation Code Description Data Shelbi rce(s) Supporting Document(s) ID Date Data Source [id number] 06/19/2019 12:28:[address] [facility] 1 Clinical Report - Physicians/Mid Levels [facility] [address] [place] [address] Phone #: ext- [phone] 06/19/2019 12:23 Patient: NIMA DIAZ Sex: F : 1990 Age: 29y Time Seen: 12:27 06/19/2019. Arrived- By private vehicle. Historian- patient. Disposition decision: 15:21 06/19/2019.HISTORY OF PRESENT ILLNESS Chief Complaint: ABDOMINAL PAIN. This started about 1 months ago; ! month hx L sided abdominal pain with NVD, pain 8/10, also has intermittent fever, also states dull L sided headache with hx of [employer] E[employer]CHAN[employer] shunt, which she states is not functioning and she has recently been seen at [facility] for to be replaced, and also has upcoming appt at [facility] for same. It is described as sharp and it is described as located in the left abdomen and left lower quadrant. At its maximum, severity described as 7 / 10. When seen in the E.D., severity described as 7 / 10. Modifying factors. Not worsened by anything. Not relieved by anything. The patient has had nausea, loss of appetite, vomiting and diarrhea. The patient has had recent travel in the last two (2) weeks- [facility]. Similar symptoms previously. Patient has had similar symptoms several times. Recent medical care: The patient was seen recently at this facility and another facility in the emergency department.REVIEW OF SYSTEMSLast normal menstrual period- about 1 weeks ago. No constipation, black stools, hematemesis, difficultywith urination or pain with urination. No urinary frequency, bloody stools, fever, sore throat or blurredvision. No chest pain, difficulty breathing, cough, joint pain or skin rash. No chills or back pain. Lastbowel movement: recently. The patient has had a headache but not had weight loss.PAST HISTORYSee nurses notes. Problems: Hypertension. Head Injury. Idiopathic intracranial hypertension. Herpes Zoster. Headache. Intercranial hypertension. INTERCRANIAL HYPERTENSION. Changed Mental Status. Cellulitis. Abdominal Pain. Chronic Headache. Tension-Type Headache. 2 Clinical Report - Physicians/Mid Levels [facility] [address] [place] [address] Phone #: ext- [phone] 06/19/2019 12:23 Patient: NIMA DIAZ Sex: F : 1990 Age: 29y Irritable bowel syndrome (disorder). Pseudotumor cerebrae. Post-Op Complications. Polycystic Ovary Disease. Sepsis (disorder). Seizure. Neck Pain. Neurological Disease. Migraine Headache. PCOS. Ovarian Cyst. Other Disease. Diabetes Mellitus. Additional Surgeries: Appendectomy. Cholecystectomy. Excision ganglion cyst (bl wrist). Excision of lipoma. Exploratory laparotomy. Intracranial shunt [06/13/2018]. Laparotomy. Lp shunt removal. Nasal septal deviation repair. Sinus Surgery. Spinal shunt surgery. Tonsillectomy. Ventriculo Peritoneal Shunt Surgery [07/2015]. 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 No alcohol use or drug use. No recent travel.ADDITIONAL NOTESThe nursing notes have been reviewed with agreement regarding the chief complaint, HPI, ROS, PMH andpatient medications and allergies.PHYSICAL EXAMVital Signs: 06/19/2019 13:14 BP: 143/107. MAP: 119. HR: 104. RR: 16. O2 saturation: 98%.06/19/2019 12:24 BP: 151/106. MAP: 121. HR: 130. RR: 18. O2 saturation: 98%. Temp: 97.8 F. Havebeen reviewed as abnormal and appear to be correct. Hypertensive. Mean arterial pressure- normal.Tachycardic. Respiratory rate normal. Temperature normal. Oxyge n saturation normal.Appearance: Alert. Oriented X3. No acute distress. Anxious. Patient in mild distress. Distressappears due to pain and anxiety. 3 Clinical Report - Physicians/Mid Levels [facility] [address] [place] [address] Phone #: ext- [phone] 06/19/2019 12:23 Patient: NIMA DIAZ Sex: F : 1990 Age: 29y Eyes: Pupils equal, round and reactive to light. Eyes normal inspection. ENT: Ears normal. Nose normal. Pharynx normal. Neck: Normal inspection. Neck supple. CVS: Tachycardia. Heart sounds normal. Pulses normal. Respiratory: No respiratory distress. Painless inspiration. Breath sounds normal. Chest nontender. Abdomen: Soft. Severe tenderness in the left upper quadrant, left side of the abdomen and left lower quadrant. Bowel sounds normal. No organomegaly. No mass. Femoral pulses equal. Severely obese. Back: Normal inspection. Skin: Skin warm and dry. Normal skin color. No rash. Normal skin turgor. Extremities: Extremities exhibit normal ROM. No lower extremity edema. Neuro: Oriented X 3. No motor deficit. No sensory deficit. Reflexes normal.LABS, X-RAYS, AND EKGChest X-ray: No acute disease. Views: PA and lateral. Technique: good. The X-rays wereindependently viewed by me and interpreted by the radiologist and contemporaneously by me.Interpretation time: 15:28 06/19/2019.CT Head: (bilateral stents remain in good position with no acute disease and no change from 03/04/19).Head CT performed without contrast. The study was independently viewed by me and interpreted by theradiologist and contemporaneously by me. Interpretation time: 15:28 06/19/2019.Abdominal CT: MAN[employer] E[employer]CH[employer]IC shunts present. Fatty liver. Trace free fluid in pelvis that is WNL, o/w NAD. appendixnot seen but no sign of appendicitis. Study type: abdomen and pelvis. Abdominal CT performed with IVcontrast. The study was independently viewed by me and interpreted by the radiologist andcontemporaneously by me. Interpretation time: 15:29 06/19/2019.Laboratory Tests: Laboratory tests have been ordered, with results reviewed and considered in themedical decision making process. CBC w Diff: (SOPHY: 06/19/2019 13:06) ( MsgRcvd 06/19/2019 13:30) Final results Test Result Flag Units (Reference) CBC W/AUTOMATED DIFF COMPLETE BLOOD COUNT WBC 9.8 10/uL (4.2 - 11.0) RBC 4.39 10/uL (4.20 - 5.40) HEMOGLOBIN 13.3 g/dL (12.0 - 16.0) HEMATOCRIT 41.0 % (37.0 - 47.0) MCV 93.4 fL (81.0 - 101) MCH 30.3 pg (27.0 - 34.0) MCHC 32.4 g/dL (31.0 - 36.0) RDW 13.4 % (11.5 - 14.5) PLATELETS 368 10/uL (150 - 450) MPV 9.3 fL (7.4 - 10.4) NEUT 68.0 % (37.0 - 80.0) LYMPH 20.9 L % (25.0 - 40.0) MONO 7.2 % (3.0 - 8.0) EOS 3.0 % (0.0 - 7.0) BASO 0.5 % (0.0 - 2.5) %IG 0.4 H % (0.0 - 0.0) %NRBC 0.0 % (0.0 - 0.0) #NEUT 6.66 10/uL (2.00 - 6.90) #LYMPH 2.04 10/uL (0.60 - 3.40) 4 Clinical Report - Physicians/Mid Levels [facility] [address] [place] [address] Phone #: ext- [phone] 06/19/2019 12:23 Patient: NIMA DIAZ Sex: F : 1990 Age: 29y #MONO 0.70 10/uL (0.00 - 0.90) #EOS 0.29 10/uL (0.00 - 0.70) #BASO 0.05 10/uL (0.00 - 0.20) #IG 0.04 10/uL (0.00 - 0.10) #NRBC 0.00 10/uL (0.00 - 0.00) MANUAL DIFF NOT INDICATED RBC MORPH NOT INDICATEDCMP: (SOPHY: 06/19/2019 13:06) ( MsgRcvd 06/19/2019 13:49) Final results Test Result Flag Units (Reference) COMPREHENSIVE METABOLIC PANEL COMPREHENSIVE METABOLIC PANEL SODIUM 140 mEq/L (134 - 153) POTASSIUM 3.9 mEq/L (3.6 - 5.0) CHLORIDE 107 mEq/L (98 - 107) CO2 18 L MEQ/L (22 - 30) GLUCOSE 89 MG/DL (65 - 110) BUN 18 MG/DL (7 - 21) CREATININE 0.7 MG/DL (0.7 - 1.5) BUN/CREAT 26 (8 - 27) TOTAL PROTEIN 7.0 G/DL (6.3 - 8.2) ALBUMIN 4.5 G/DL (3.9 - 5.0) GLOBULIN 2.5 GM/DL (2.4 - 3.2) A/G RATIO 1.8 (0.8 - 2.0) CALCIUM 9.5 MG/DL (8.4 - 10.2) TOTAL BILI <0.7 MG/DL (0.2 - 1.3) ALKALINE PHOS 102 U/L (38 - 126) SGOT/AST 42 H U/L (5 - 40) SGPT/ALT 65 H U/L (7 - 56) ANION GAP 15.0 mmol/L (8.0 - 16.0) AGE 29 yrs NON- AA GFR >60 mL/min AFR AMER GFR >60 mL/min Male GFR Interprentation 20-49 yrs >60 mL/min Hambka16-80 yrs >56 mL/min Normal 60- 69 yrs >49 mL/min Normal 70-79yrs>42 mL/min Normal 80 and above >35 mL/min Normal Female GFRInterpretation 20-39 yrs >60 mL/min Normal 40-49 yrs >58 mL/minNormal 50-59 yrs >51 mL/min Normal 60-69 yrs >45 mL/min Zekykk01-36 yrs >39 mL/min Normal 80 and above >32 mL/min NormalLipase: (SOPHY: 06/19/2019 13:06) ( MsgRcvd 06/19/2019 13:46) Final results Test Result Flag Units (Reference) LIPASE 51 U/L (13 - 60)Beta-HCG, Qual Urine: (SOPHY: 06/19/2019 12:23) ( MsgRcvd 06/19/2019 13:06) Final results Test Result Flag Units (Reference) HCG URINE QUAL NEGATIVE (NORMAL: NEGAT HCG URINE QL REENTER NEGATIVE (NORMAL: NEGAT { KIT LOT # [id number] ){ KIT EXP DATE01/02/21 ){ PROCEDURAL CONTROL VALID)PT/PTT: (SOPHY: 06/19/2019 13:06) ( MsgRcvd 06/19/2019 13:35) Final results Test Result Flag Units (Reference) PROTIME 11.8 SECONDS (11.0 - 15.5) 5 Clinical Report - Physicians/Mid Levels [facility] [address] [place] [address] Phone #: ext- [phone] 06/19/2019 12:23 Patient: NIMA DIAZ Sex: F : 1990 Age: 29y INR 0.86 L (0.93 - 1.23) PTT 28.1 SECONDS (24.8 - 36.7) \\BLDo\\INR INTERPRETATION\\BLDx\\ Therapeutic range for Coumadin and related oral anticoagulants. -International Normalized Ratio (INR): 2.0 - 3.0 for Venous Thrombosis, Pulmonary Embolus, Tissue heart valves, Acute IN Atrial Fibrillation, Valvular heart disease and recurrent Systemic Embolism. -International Normalized Ratio (INR): 2.5 - 3.5 for Mechanical Prosthetic valve. \\BLDo\\PTT INTERPRETATION\\BLDx\\ Critical results for patients not on therapy: >50 seconds Critical results for patients on therapy: >119 seconds Therapeutic range for patients on therapy: 58 - 90 seconds Coag studies from line draws may not be accurate due to Heparin and other interferences. Urinalysis: (SOPHY: 06/19/2019 12:23) ( MsgRcvd 06/19/2019 13:06) Final results Test Result Flag Units (Reference) URINALYSIS URINALYSIS SOURCE R COLOR yellow (NORMAL: Yello CLARITY clear (NORMAL: Clear SPEC GRAVITY 1.025 (1.001 - 1.030 pH 5 (5 - 9) GLUCOSE NORM (NORMAL: Negat BILIRUBIN NEG (NORMAL: Negat KETONE NEG (NORMAL: Negat PROTEIN NEG (NORMAL: Negat NITRITE NEG (NORMAL: Negat BLOOD NEG (NORMAL: Negat LEUK EST NEG (NORMAL: Negat UROBILINOGEN NOR (less than 1.0 MICROSCOPIC Not Indicate.PROGRESS AND PROCEDURESCourse of Care: 15:30 Jun 19 2019. patient resting comfortably in ED exam room bed for majority of EDcourse in NAD. No episodes of vomiting thru ED course. Pain controlled well after morphine. Labsessentially WNL, CT head and abd without acute disease. No good explanation for L sided abd pain, willdischarge to home and advised return precautions, otherwise recommend PCM f/u x 3 days and GEreferral. Disposition: Discharged home in good and improved condition. Discharge decision based on the following: patient's condition is improved; patient is ambulatory; patient is active; patient's pain is controlled; patient's exam is improved; minimally abnormal test results; improving condition on repeat evaluation; social support is adequate; transportation is available; follow-up is available; clinical impression is consistent with outpatient treatment.CLINICAL IMPRESSION Acute left upper quadrant and left lower quadrant abdominal pain of unknown cause. 6 Clinical Report - Physicians/Mid Levels [facility] [address] [place] [address] Phone #: ext- [phone] 06/19/2019 12:23 Patient: NIMA DIAZ Sex: F : 1990 Age: 29yINSTRUCTIONS No strenuous activity until better. Rest at home for one days. Do not work for three days. Drink plenty of fluids for the next 48 hours as needed. Avoid alcohol and NSAIDS. NSAIDS include aspirin, ibuprofen (Advil) and naproxen (Aleve). Avoid fatty, fried/greasy, lactose-containing (such as milk, cheese and ice cream), salty and spicy foods until better. No sexual contact until symptoms resolve. No alcohol. Do not smoke. (continue zofran as needed for nausea per dosing instructions). Warnings: Further evaluation is necessary in order to conduct further tests. It is very important to follow up with a healthcare provider. GENERAL WARNINGS: Return or contact your physician immediately if your condition worsens or changes unexpectedly, if not improving as expected, or if other problems arise. SPECIFICALLY, return if you develop pain in the back or shoulder, fever, vomiting, the inability to keep fluids down, blood in vomitus, blood in diarrhea, fainting, lightheadedness or vaginal bleeding; or if there is no improvement in the pain in the abdomen. Your Current Medications: Your current home medications have been reviewed. CONTINUE TAKING THE FOLLOWING MEDICATIONS: Ascorbic Acid Buffered Oral : 500 2x a day. busPIRone HCl Oral : Tablet 10 mg, 1 tablet 2x a day. Ferrous Sulfate Oral : Tablet 325 (65 Fe) mg, 1 tablet 2x a day. metFORMIN HCl Oral : Tablet 850 mg, 1 tablet 2x a day. PROzac Oral : Capsule 40 mg, 1 capsule daily. Topamax Oral : Tablet 200 mg, 1 tablet 2x a day. Tylenol Oral : 325 mg, prn. Zofran Oral : Tablet 4 mg, 1 tablet, prn. Follow-up: Follow up with your healthcare provider in three days even if well. Call for the next available appointment. Reason for referral: evaluation and recommend gastrenterology referral. Summary of care provided to patient via paper. Understanding of the discharge instructions verbalized by patient. Expected course of illness, discharge instructions, activity level, follow-up appointment and risks and benefits of treatment reviewed with patient and understanding verbalized. Agrees to plan of care.(Electronically signed by SREE Jean 06/19/2019 21:49) 7Clinical Report - Physicians/Mid Levels [facility] [address] [place] [address] Phone #: ext- [phone] 06/19/2019 12:23 [id number] Sex: F : 1990 Age: 29y Name Value Range Interpretation Code Description Data Shelbi rce(s) Supporting Document(s) ID Date Data Source [id number] 06/19/2019 08:13:[address] [facility] Name Value Range Interpretation Code Description Data Shelbi rce(s) Supporting Document(s) LAB - SPECIMEN REJECTION [facility] Specimen Integrity/Specimen Recollection The patient sample needs to be resubmitted for the following reason: Test(s) Ordered LACTIC ACID [facility] Rejection Reason Sample Compromised [facility] FOUND SAMPLE AT 1730 IN SHARPSCONTAINER{ One or more of the tests you ordered cannot be performed.{ Please recollect, reorder, and resubmit if needed. ID Date Data Source [id number] 06/24/2019 06:03:00 PM EDT [facility] 9208 Name Value Range Interpretation Code Description Data Shelbi rce(s) Supporting Document(s) Bacteria identified in Blood by Culture [facility] NO GROWTH AFTER 5 DAYS ID Date Data Source [id number] 06/25/2019 10:49:[address] [facility] Name Value Range Interpretation Code Description Data Shelbi rce(s) Supporting Document(s) CULTURE BLOOD [facility] _CULTURE BLOOD_ TEST PERFORM ED AT [address] [address] CLIA# [id number] SEE SCANNED REPORT{ PRELIM ID Date Data Source [id number] 06/25/2019 10:48:[address] [facility] Name Value Range Interpretation Code Description Data Shelbi rce(s) Supporting Document(s) CULTURE BLOOD [facility] _CULTURE BLOOD_ TEST PERFORM ED AT [address] [address] CLIA# [id number] SEE SCANNED REPORT{ PRELIM ID Date Data Source [id number] 06/19/2019 01:49:[address] [facility] Name Value Range Interpretation Code Description Data Shelbi rce(s) Supporting Document(s) COMPREHENSIVE METABOLIC PANEL [facility] COMPREHENSIVE METABOLIC PANEL Sodium [Moles/volume] in Serum or Plasma 140 mEq/L 134 - 153 [facility] Potassium [Moles/volume] in Serum or Plasma 3.9 mEq/L 3.6 - 5.0 [facility] Chloride [Moles/volume] in Serum or Plasma 107 mEq/L 98 - 107 [facility] Carbon dioxide, total [Moles/volume] in Serum or Plasma 18 MEQ/L 22 - [address] [facility] Glucose [Mass/volume] in Serum or Plasma 89 MG/DL 65 - 110 [facility] BUN 18 MG/DL 7 - 21 [facility] Creatinine [Mass/volume] in Serum or Plasma 0.7 MG/DL 0.7 - 1.5 [facility] BUN/CREAT 26 8 - 27 [facility] Protein [Mass/volume] in Serum or Plasma 7.0 G/DL 6.3 - 8.2 [facility] Albumin [Mass/volume] in Serum or Plasma 4.5 G/DL 3.9 - 5.0 [facility] Globulin [Mass/volume] in Serum by calculation 2.5 GM/DL 2.4 - 3.2 [facility] A/G RATIO 1.8 0.8 - 2.0 [facility] Calcium [Mass/volume] in Serum or Plasma 9.5 MG/DL 8.4 - 10.2 [facility] Bilirubin.total [Mass/volume] in Serum or Plasma <0.7 MG/DL 0.2 - 1.3 [facility] Alkaline phosphatase [Enzymatic activity/volume] in Serum or Plasma 102 U/L 38 - 126 [facility] Aspartate aminotransferase [Enzymatic activity/volume] in Serum or Plasma 42 U/L 5 - [address] [facility] Alanine aminotransferase [Enzymatic activity/volume] in Seru m or Plasma 65 U/L 7 - [address] [facility] Anion gap 3 in Serum or Plasma 15.0 mmol/L 8.0 - 16.0 [facility]GE 29 yrs [facility] NON-AA GFR >60 mL/min [facility] AFR AMER GFR >60 mL/min [facility] Male GFR In terprentation 20-49 yrs >60 mL/min Normal 50-59 yrs >56 mL/min Normal 60-69 yrs >49 mL/min Normal 70-79yrs >42 mL/min Normal 80 and above >35 mL/min Normal Female GFR Interpretation 20-39 yrs >60 mL/min Normal 40-49 yrs >58 mL/min Normal 50-59 yrs >51 mL/min Normal 60-69 yrs >45 mL/min Normal 70-79 yrs >39 mL/min Normal 80 and above >32 mL/min Normal ID Date Data Source [id number] 06/19/2019 01:45:00 PM EDT [facility] Value Range Interpretation Code Description Data Shelbi rce(s) Supporting Document(s) Lipase [Enzymatic activity/volume] in Serum or Plasma 51 U/L 13 - 60 [facility] ID Date Data Source [id number] 06/19/2019 01:35:[address] [facility] Name Value Range Interpretation Code Description Data Shelbi rce(s) Supporting Document(s) Prothrombin time (PT) 11.8 SECONDS 11.0 - 15.5 [facility] INR in Platelet poor plasma by Coagulation assay 0.86 0.93 - 1. [address] [facility] aPTT in Blood by Coagulation assay 28.1 SECONDS 24.8 - 36.7 [facility] \\BLDo\\INR INTERPRETATION\\BLDx\\ Therapeutic range for Coumadin and related oral anticoagulants. - International Normalized Ratio (INR): 2.0 - 3.0 for Venous Thrombosis, Pulmonary Embolus, Tissue heart valves, Acute IN Atrial Fibrillation, Valvular heart disease and recurrent Systemic Embolism. - International Normalized Ratio (INR): 2.5 - 3.5 for Mechanical Prosthetic valve. \\BLDo\\PTT INTERPRETATION\\BLDx\\ Critical results for patients not on therapy: >50 seconds Critical results for patients on therapy: >119 seconds Therapeutic range for patients on therapy: 58 - 90 seconds Coag mel dies from line draws may not be accurate due to Heparin and other interferences. ID Date Data Source [id number] 06/19/2019 01:29:[address] [facility] Name Value Range Interpretation Code Description Data Shelbi rce(s) Supporting Document(s) CBC W/AUTOMATED DIFF [facility] COMPLETE BLOOD COUNT Leukocytes [#/volume] in Blood by Automated count 9.8 10^3/uL 4.2 - [address] [facility] Erythrocytes [#/volume] in Blood by Automated count 4.39 10^6/uL 4. 20 - 5.40 [facility] Hemoglobin [Mass/volume] in Blood 13.3 g/dL 12.0 - 16.0 [facility] Hematocrit [Volume Fraction] of Blood by Automated count 41.0 % 3 7.0 - 47.0 [facility] Erythrocyte mean corpuscular volume [Entitic volume] by Auto mated count 93.4 fL 81.0 - 101 [facility] Erythrocyte mean corpuscular hemoglobin [Entitic mass] by Automated count 30.3 pg 27.0 - 34.0 [facility] Erythrocyte mean corpuscular hemoglobin concentration [Mass/volume] by Automated count 32.4 g/dL 31.0 - 36.0 [facility] Erythrocyte distribution width [Ratio] by Automated count 13.4 % 11.5 - 14.5 [facility] Platelets [#/volume] in Blood by Automated count 368 10^3/uL 150 - [address] [facility] Platelet mean volume [Entitic volume] in Blood by Automated count 9.3 fL 7.4 - 10.4 [facility] Neutrophils/100 leukocytes in Blood by Automated count 68.0 % 37. 0 - 80.0 [facility] Lymphocytes/100 leukocytes in Blood by Manual count 20.9 % 25.0 - 40.[address] [facility] Monocytes/100 leukocytes in Blood by Automated count 7.2 % 3.0 - 8.0 [facility] Eosinophils/100 leukocytes in Blood by Automated count 3.0 % 0.0 - 7.0 [facility] Basophils/100 leukocytes in Blood by Automated count 0.5 % 0.0 - 2.5 [facility] %IG 0.4 % 0.0 - 0.0 [facility] %NRBC 0.0 % 0.0 - 0.0 [facility] al Neutrophils [#/volume] in Blood by Automated count 6.66 10^3/uL 2.00 - 6.90 [facility] Lymphocytes [#/volume] in Blood by Automated count 2.04 10^3/uL 0.60 - 3.40 [facility] Monocytes [#/volume] in Blood by Automated count 0.70 10^3/uL 0.00 - 0.90 [facility] Eosinophils [#/volume] in Blood by Automated count 0.29 10^3/uL 0.00 - 0.70 [facility] Basophils [#/volume] in Blood by Automated count 0.05 10^3/uL 0.00 - 0.20 [facility] #IG 0.04 10^3/uL 0.00 - 0.10 [facility] #NRBC 0.00 10^3/uL 0.00 - 0.00 [facility] ospital MANUAL DIFF NOT INDICATED [facility] RBC MORPH NOT INDICATED [facility] ID Date Data Source [id number] 06/19/2019 01:05:[address] [facility] Name Value Range Interpretation Code Description Data Shelbi rce(s) Supporting Document(s) HCG URINE QUAL NEGATIVE NORMAL: NEGATIVE [facility] HCG URINE QL REENTER NEGATIVE NORMAL: NEGATIVE [facility] { KIT LOT # [id number] ){ KIT EXP DATE 01/02/21 ){ PROCEDURAL CONTROL VALID ) ID Date Data Source [id number] 06/19/2019 01:05:[address] [facility] Name Value Range Interpretation Code Description Data Shelbi rce(s) Supporting Document(s) [facility] COLOR yellow NORMAL: Yellow [facility] CLARITY clear NORMAL: Clear [facility] Specific gravity of Urine by Test strip 1.025 1.001 - 1.030 [facility] pH 5 5 - 9 [facility] Glucose [Mass/volume] in Urine by Test strip NORM NORMAL: Negat roger [facility] Bilirubin.total [Presence] in Urine by Test strip NEG NORMAL: Negative [facility] Ketones [Presence] in Urine by Test strip NEG NORMAL: Negative [facility] Protein [Mass/volume] in Urine by Test strip NEG NORMAL: Negat roger [facility] Nitrite [Presence] in Urine by Test strip NEG NORMAL: Negative [facility] BLOOD NEG NORMAL: Negative [facility] Leukocyte esterase [Presence] in Urine by Test strip NEG JESICA L: Negative [facility] Urobilinogen [Mass/volume] in Urine by Test strip NOR less melvi n 1.0 mg/dL [facility] MICROSCOPIC Not Indicate [facility] ospital ID Date Data Source [id number] 06/16/2019 09:15:00 AM EDT [facility] Patient: NIMA DIAZ Observation Re port - Physicians/[facility].VisitID: [id number] [place] [address] [phone], FRegistration Date/Time: 06/09/2019 17:04 Weight:106.1 kg (S). Height/Length:62 inches (S). BMI:42.8 PAST HISTORYProblems:Polycystic ovarian syndrome [Chronic].Abdominal Pain [Chronic].Pseudotumor cerebri [Chronic].Depression [Chronic].Neurological Disease [Chronic].Intercranial hypertension [Chronic].Pituitary mass [Chronic].GI Disease [Chronic].Diarrhea.Head Injury.Neck Pain.Headache.Sick Contact.Chronic Headache.Migraine Headache.Hydrocephalus.Headache [Intermittent].Cellulitis [Resolved].Diarrhea [Resolved].Wound Dehiscence [Resolved].Skin Rash [Resolved].C. Difficile Colitis [Resolved]. 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 Medications:Probiotic Daily Oral, daily, last dose 06/09/2019.Robaxin Oral 1000mg, as needed, last dose 06/09/2019.BusPIRone HCl Oral (Tablet 10 mg) 1 tablet, 2x a day, last dose 06/09/2019.Ferrous Sulfate Oral (Tablet 325 (65 Fe) mg) 1 tablet, 2x a day, last dose 06/09/2019.Folic Acid Oral 4mg, daily, last dose 06/09/2019.MetFORMIN HCl Oral 850mg, 2x a day every AM, last dose 06/09/2019.PROzac Oral (Capsule 40 mg) 1 capsule, daily, last dose 06/09/2019. Allergies:enoxaparin.(hives)Sulfa (Sulfonamide Antibiotics). SevereTape.(rash). FAMILY HISTORYNo significant family medical history. (Electronically signed by Amol Kennedy P.A. 06/09/2019 21:04) Addenda for NIMA DIAZ VisitID: [id number] Date: 06/09/2019 06/16/2019 9:05General follow-up 06/07/2019 COVID-19 test results received by Infection control nurse from [facility].(Electronically signed by Maggie Lancaster R.N. - 06/16/2019 9:05) Name Value Range Interpretation Code Description Data Shelbi rce(s) Supporting Document(s) ID Date Data Source [id number] 06/10/2019 06:25:00 AM [facility] Patient: NIMA DIAZ Observation Re port - Physicians/[facility] Levels [facility].VisitID: [id number] [place] [address] [phone], FRegistrachristiana hospital Date/Time: 06/09/2019 17:04 Weight:106.1 kg (S). Height/Length:62 inches (S). BMI:42.8 PAST HISTORYProblems:Polycystic ovarian syndrome [Chronic].Abdominal Pain [Chronic].Pseudotumor cerebri [Chronic].Depression [Chronic].Neurological Disease [Chronic].Intercranial hypertension [Chronic].Pituitary mass [Chronic].GI Disease [Chronic].Diarrhea.Head Injury.Neck Pain.Headache.Sick Contact.Chronic Headache.Migraine Headache.Hydrocephalus.Headache [Intermittent].Cellulitis [Resolved].Diarrhea [Resolved].Wound Dehiscence [Resolved].Skin Rash [Resolved].C. Difficile Colitis [Resolved]. 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 Medications:Probiotic Daily Oral, daily, last dose 06/09/2019.Robaxin Oral 1000mg, as needed, last dose 06/09/2019.BusPIRone HCl Oral (Tablet 10 mg) 1 tablet, 2x a day, last dose 06/09/2019.Ferrous Sulfate Oral (Tablet 325 (65 Fe) mg) 1 tablet, 2x a day, last dose 06/09/2019.Folic Acid Oral 4mg, daily, last dose 06/09/2019.MetFORMIN HCl Oral 850mg, 2x a day every AM, last dose 06/09/2019.PROzac Oral (Capsule 40 mg) 1 capsule, daily, last dose 06/09/2019. Allergies:enoxaparin.(hives)Sulfa (Sulfonamide Antibiotics). SevereTape.(rash). FAMILY HISTORYNo significant family medical history. (Electronically signed by Amol Kennedy, P.ATamara 06/09/2019 21:04) Name Value Range Interpretation Code Description Data Shelbi rce(s) Supporting Document(s) ID Date Data Source [id number] 06/09/2019 07:57:00 PM T [facility] TSYSORDER [id number] Name Value Range Interpretation Code Description Data [facility] rce(s) Supporting Document(s) Campylobacter Not Detected Detected Not [facility] Clostridium difficile toxin AB Not Detected Detected [facility] Due to the high asymptomatic carriage ra adam, especiallyin young children, the clinical relevance of the detectionof toxigenic C. difficile from stool should be consideredin the context of other clinical findings, patient age, andrisk factores which include hospitalization and antibioticexposure. Plesiomonas shigelloides Not Detected Detected [facility] Salmonella Not Detected Detected Not [facility] ospital Vibrio Not Detected Detected Not [facility] spital Vibrio cholerae Not Detected Detected Not [facility] Yersinia enterocolitica Not Detected Detected [facility] Enteroaggregative E. coli Not Detected Detected [facility] Enteropathogenic E. coli Not Detected Detected [facility] Enterotoxigenic E. coli Not Detected Detected [facility] Shiga-like toxin-prod E. coli Not Detected Detected [facility] E. coli O157 Not Detected Detected [facility] Shigella/Enteroinvasive E coli Not Detected Detected [facility] Cryptosporidium Not Detected Detected [facility] Cyclospora cayetanensis Not Detected Detected [facility] Entamoeba histolytica Not Detected Detected Not [facility] Giardia Lamblia Not Detected Detected Not [facility] Adenovirus F 40/41 Not Detected Detected Not [facility] Astrovirus Not Detected Detected Not [facility] Norovirus GI/GII Not Detected Detected Not [facility] Rotavirus A Not Detected Detected Not [facility] Sapovirus Not Detected Detected Not [facility] The Above results have been determined b y using the [employer] Film[employer] system.FilmArray is an automated in vitro diagnostic system thatutilizes nested multiplex Polymerase Chain Reaction (PCR)and high-resolution melting analysis to detect and identifymultiple nucleic acid targets from clinical specimens. ID Date Data Source [id number] 06/09/2019 06:56:00 PM EDT [facility] TSYSORDER [id number] Name Value Range Interpretation Code Description Data Shelbi rce(s) Supporting Document(s) GLUCOSE 117 mg/dL 74-[address] [facility] BLOOD UREA NITROGEN 9 mg/dL 7-18 [facility] ital CREATININE 0.8 mg/dL 0.6-1.0 [facility] SODIUM 142 mmol/L 136-145 [facility] POTASSIUM 3.9 mmol/L 3.5-5.1 [facility] CHLORIDE 106 mmol/L 98-107 [facility] CO2 21 mmol/L 21-32 [facility] CALCIUM 8.3 mg/dL 8.5-10.[address] [facility] ANION GAP 15.0 mmol/L 5-[address] [facility] GLOMERULAR FILTRATION RATE 85 mL/min [facility] GFR IS CALCULATED IN mL/min/1.73m2 JESICA L FUNCTION: >90MILDLY DECREASED: 60-89MILDY TO MODERATELY DECREASED: 45-59 MODERATELY TO SEVERELY DECREASED: 30-44SEVERELY DECREASED: 15-29RENAL FAILURE: <15 AST 20 U/L 15-37 [facility] ALT 36 U/L 12-78 [facility] ALKALINE PHOSPHATASE 90 U/L 46-116 [facility] pital TOTAL BILIRUBIN 0.2 mg/dL 0.2-1.0 [facility] TOTAL PROTEIN 7.7 g/dl 6.4-8.2 [facility] ALBUMIN 3.8 gm/dL 3.4-5.0 [facility] ID Date Data Source [id number] 06/09/2019 06:51:00 PM EDT [facility] TSYSORDER [id number] Name Value Range Interpretation Code Description Data Shelbi rce(s) Supporting Document(s) URINE AMPHETAMINES NEGATIVE <1000 ng/mL [facility] THC,URINE NEGATIVE <50 ng/mL [facility] URINE BARBITURATES NEGATIVE <300 ng/mL [facility] ital PCP,URINE NEGATIVE <25 ng/mL [facility] COCAINE, URINE NEGATIVE <300 ng/mL [facility] URINE,OPIATES NEGATIVE <300 ng/mL [facility] URINE,TCA NEGATIVE <1000 ng/mL [facility] IF A NEGATIVE RESULT IS OBTAINED AND ING ESTION OF TRICYCLICANTIDEPRESSANTS IS SUSPECTED, A SERUM SAMPLE SHOULD BEOBTAINED AND TESTED USING AN APPROPRIATE METHOD. URINE BENZODIAZEPINES NEGATIVE <300 ng/mL [facility] THESE TESTS ARE PERFORMED USING AN IMMU NOASSAY FOR THEQUALITATIVE DETERMINATION OF THE PRESENCE OF THE MAJORMETABOLITES OF DRUGS OF ABUSE. THESE TESTS ARE ONLY ASCREENING AND NOT CONFIRMATORY. CLINICAL CONSIDERATION ANDPROFESSIONAL JUDGMENT MUST BE APPLIED TO ANY DRUG OF ABUSETEST RESULT. ID Date Data Source [id number] 06/09/2019 06:47:00 PM EDT [facility] TSYSORDER [id number] Name Value Range Interpretation Code Description Data [facility] Vistae(s) Supporting Document(s) WHITE BLOOD COUNT 12.0 K/mm3 4.0-10.0 H [facility] tuyet RED BLOOD COUNT 4.59 M/mm3 4.00-5.50 [facility] HEMOGLOBIN 14.1 gm/dL 12.0-16.0 [facility] HEMATOCRIT 43.4 % 36.0-48.8 [facility] MEAN CELL VOLUME 94.6 fl 80-96 [facility] MEAN CORPUSCULAR HEMOGLOBIN 30.7 pg 27.0-31.0 [facility] MEAN CORPUSCULAR HGB CONC 32.5 g/dl 32.0-36.0 [facility] RED CELL DISTRIBUTION WIDTH 13.3 % 10.0-14.5 [facility] PLATELET COUNT 380 K/mm3 172-450 [facility] MEAN PLATELET VOLUME 9.5 fl 9.0-13.0 [facility] GRAN % 72.4 % 50-80.0 [facility] IG% 0.3 % 0.0-0.[address] [facility] LYMPH % 19.0 % 25.0-50.[address] [facility] MONO % 6.1 % 2.0-10.0 [facility] EOS % 1.8 % 0-5.0 [facility] BASO % 0.4 % 0.0-2.0 [facility] GRAN # 8.7 K/mm3 2.0-8.[address] [facility] IG# 0.0 K/mm3 0.0-0.2 [facility] LYMPH # 2.3 K/mm3 1.0-5.0 [facility] MONO # 0.7 K/mm3 0.10-1.20 [facility] EOS # 0.2 K/mm3 0.0-0.5 [facility] BASO # 0.1 K/mm3 0.0-0.2 [facility] ID Date Data Source [id number] 06/09/2019 06:35:00 PM EDT [facility] ital TSYSORDER [id number] Entery of ALL Res ults have been RecheckedBy AISHA on 06/09/19 @ 1835. Name Value Range Interpretation Code Description Data Shelbi rce(s) Supporting Document(s) URINE COLOR. YELLOW [facility] URINE APPEARANCE CLEAR [facility] l SPECIFIC GRAVITY,URINE 1.025 1.001-1.035 [facility] URINE LEUKOCYTE ESTERASE NEGATIVE NEGATIVE [facility] URINE NITRATE NEGATIVE NEGATIVE [facility] PH,URINE 7.0 5.0-9.0 [facility] URINE PROTEIN NEGATIVE mg/dL NEGATIVE [facility] UR[facility] GLUCOSE (UA) NEGATIVE mg/dL NEGATIVE [facility] URINE KETONE NEGATIVE mg/dL [facility]GATIVE [facility] UROBILINOGEN NORMAL(0.2-1) mg/dL 0-[address] [facility] URINE BILIRUBIN NEGATIVE NEGATIVE [facility] URINE BLOOD TRACE NEGATIVE H [facility] ID Date Data Source [id number] 06/09/2019 06:47:00 PM EDT [facility] l TSYSORDER [id number] Entery of ALL Res ults have been RecheckedBy AISHA on 06/09/19 @ 1835. Name Value Range Interpretation Code Description Data Shelbi rce(s) Supporting Document(s) URINE RBC 0-2 /hpf 0-3 [facility] URINE WBC 0-2 /hpf 0-[address] [facility] URINE EPITHELIAL CELLS 1+ /hpf [facility] URINE CALCIUM OXALATE CRYSTALS PRESENT /hpf [facility] URINE BACTERIA 1+ NONE SEEN [facility] URINE MUCUS 1+ NEGATIVE H [facility] ID Date Data Source [id number] 06/07/2019 05:43:00 PM EDT [facility] Name Value Range Interpretation Code Description Data Shelbi rce(s) Supporting Document(s) SARS CORONAVIRUS 2 RNA [facility] This lab was ordered by [facility] and reported by [facility]. ID Date Data Source [id number] 06/03/2019 12:15:00 PM EDT [facility] Name Value Range Interpretation Code Description Data Shelbi rce(s) Supporting Document(s) SARS CORONAVIRUS 2 RNA [facility] This lab was ordered by [facility] Laboratory and reported by [facility]. ID Date Data Source [id number] 04/15/2019 02:14:45 PM EST [facility] Name Value Range Interpretation Code Description Data Shelbi rce(s) Supporting Document(s) ED Provider Note [facility] HRPPGu1bPbKKBhTi86/CKPfwDMAas2FsGCfmHHy8KOjoIXZbY9GpMIB0sK5vZVJ9DJiUOpMiEqXjEwVg lbm [file] vp product marketing/Vp1tY1t4ie4W0Ca+1pT2BSQDOKzr8w/2G+rw+2wEpr9dZgxRkAbnNyf1S878uS/UI9WiooPFVJzc1 [file] YNCg== ID Date Data Source [id number] 04/15/2019 06:40:22 AM EST [facility] Name Value Range Interpretation Code Description Data Shelbi rce(s) Supporting Document(s) ED Provider Note [facility] ISRGNv9lNbWNVqQn35/LFPejWRFam4NvCOrkUZx7ZIggVCAmB9LwNFR2oL6aOER3VUfKRcTzShLvYuQk lbm [file] QQWgXKZdpSHuFXc1A04qhILlAJpwIU1WUFC+Tiffany+Pg 8XCNKdDTBpQJDvJcEfQBVDYwQuI2MgT5WUk2XuP6JiNZ07zKmgfoBaLZorFP8TAJ2mDOHwNHQIJN7XnN QbbZ5jalY0MfEwDJOROdYnN41bsLYdQSDkNZe2HXJfIy9VZLBdM3RedeUsjMdamlNpAUBjTEEPCF0GCJ xgfcUprETsfGsdOW54tWmbVD3NNm0NDqRwYW0anh0T tZNuXb7KULR6YP2QUXTvGYMaPWEsPPY9FWXyMgIhPYbiYIXmKRKdIWX3BJAiAEBdRQ2FTqRoEPKzVXy6 XJImWEAvNLWkex7UHDLtJBAaEPk2EoBkNUYkYZAhXEfvYNPyKPJzDHA9FHNlJDPqJH6VCyTyHEDbRTRv DADxYGWeMILypw5PMUQbBMRnSKRlSWLmFWWwASLjYO apUKIlPWE0ZwEoEWHzSOOlGN3OSwGuYBQaCVv3EdwcSQAuKAIngm9EJDQxJGBaEZHpUpPhARZdEZKcZX fqVXTiNKRfVeC9RPFdEYFzMI9HAaHsFWCxXRW6MEpvRXUnBJOjvx2NPSNjXEWhUlOgQGFxFIGlFKSzEQ hnZKClNQK1OlC4YAVrDVOdPS7UXuTbXLKsHIC6OWKb OVVdFNLeqn3SHOYvSNBbJFA0HDZaEPIoKLNjJZdnIILyWCHzLtAyKSUqKWGrMX2VVaGhQZRcIuSrREIj BLYfDYLoze1QPSEdNJYmGpE3KIGgUUMoGIFjVNmjUWJdSIK0CoqjCMKaRVVkQD5XJwCoUIBkZtd0Imvm XCSpILFzum1SLTQnRIHjEXFkCYKqRMQvNUYxFJfhZS NrOYYjAPTbITLlPBQzAI1PXsZzDISoRwS0MjHlQLYoWDYfow0AKWYiFMBcNztvLaIzVUZtUIOfYIrqPD WvIZE6AIfaUWDcFBPjTZ5HNgKqJPTfIoGeYItaJJAsUQCitu3SRWLmFDOrNHc6LCBtHFJrXRWaIJzqLZ NkFDJ2WHw9EEJhPVAxRN0TXsChOUGuIMG4QNSoKSGz LSQcrh9AJKHqBOQgBYP7InXdQAVtPZYoMZjrLVMzDACjCNT6IMIxAXRnUZ6APnQvVDMdNIW0YQHrIWEb AZTdhp4ERXHqSIN9ClhbCKYgJWXrDDIsWLyqBZDcKAM0BcGgOKLaBEIuRP8WEgSqBLTmAPf9LZBhXIMd QAEyxk9OVHKfXYF5FzUaOHTdEDIwTNFqMQwrXWMdOU VcVhN3MLRpXSIxKD6UXjYkZESpQDDaHbYzUQQjEVIsqr3RKQXbNVW1WCZ2CdRkRKUsTZMxKBfwNYYsYK W5UCUdXMKsAPKeJK4LPwGwKJDaFYu4VmcyAXKdIJTsyq3PFCVhRLW2JmWzPlQcUFMqVEFvIKvuXRScAA RnXyC5SWHfFQAeHD6BDvYeXSHfSzVwYtXnRBWvKXVe pc9VVZGvXLV6EKP4BBCtHBPvEQDhJWvkAYNhZSQ3Fre0RONoEEIuFZ9MUhHtCKNgKgl6QSAxMLFdDAMy av9KHNOtKGL1MEG2RVQrWXHoYFOsGTkaMMIgUED9TqC8ELHyQXQsDN9FVhSwDFBwHvL0BmUqVBWxUDCa ai1JLWDhFCE5XXf8DoXaXRVlVTSpCZkwEURkAJddPB G5ACAjVNJtSN9YOyKkANKvYhDfLASbZPCySGIruv7ZMNXxQVQ4VkOqLoBhBDOfRBKgQImyDJEyRTdfZe y1ZXOzGTYaBQ2HIgEwRHWdLmCkISKzSCYaTVQwuv3JKVViDJZ5TaY6OSIiCYDmGAKsVKrjCBDvIIjaSr C0OAMoRVGaKK0YYtPuMDVeWIRpFFdsDZXkNJXxzb4Z EJCtOVL2RMCcXsJoODIuKBVeLWhfQYEyZZf0DoQ6DPEhRDIvDQ1GPeZtWJZhMHM9EDIvTUYgWRYpwk0Z NUNeXDX6SfTwHFTzWJSnNTBxLPumVAAxHHa1WEw4CGEtUZFdVI9DPnVtLEJsJBnsXtVsUTYrUOIoyd8F CFFjAFE7NwP5DJSrQANxQBEaFMrpODRrEBi3IpleXJ AsCHMlKW2NLnLbMENiBOl1HhHaMZRpPVAagh7JNYZrUNF9BVB6UODpVBSnKUKvGGvsXWSuISl7ZKelSX RaMKRwQW2WVdUuJPSaOFx1SVQeMZIlBBLthe2NGPZdKOW0IMh4QQOyKFSuYFYgOBrtGFZlBLzrCxf7TU AeFMMeMZ6BRzSrNGXbAOg8BhPhNLBwELPmef9SMUYd OTLuYSIjYfFwOALvNCGbZLseOEFpHQVsLVEiYUBcYJHxYJ0DNsUmLGBrTyHcFfJbTWXqLBJkwh5PAFJr FVUtAMF6NOXgAYRuQBIxAKuqLWGwAXVoQge6ZHLbKUIvHI8WXeGxMUYfAiT1UvctHVZmXGIctj9TAMPn KKSoXJm3RlBoUSFcODEiHZujMPDeXVUbAGM0IUSzPH QoQT0PSgPbSDDwBeNpMWgzYUSlYTNoit1TnXWlnAzorw7QKFzCMy8CyAyvDAz7KNhiDi7kuJO3ElYiHE AYQy1YidSmCUHiUYJHTGdeTQDbGFK1NWG4McPtRibxIdGwUwP6BJvdRPy9ANA9OUM8CSEgSpP2RhuuKA zaA2V3UISjZtO9IaUzCXXjFah7DUu1OaA1FtT+IF0g DQo+Bj2Sc6RflbS7cuAoQXbqBcF8VEABPxKyFW3VEGa= ID Date Data Source [id number] 04/12/2019 07:48:[address] [facility] [address] [facility] Emergency Department [address] [place] [address] Phone #: ext- [phone] 04/12/2019 19:30 Patient: NIMA DIAZ Sex: F : 1990 Age: 28yWEIGHT:107.9 kg (S) HEIGHT:62 inches (S) BMI:43.6ALLERGIES: Diamox, Sulfa AntibioticsCHIEF COMPLAINT: vomiting, nausea, diarrhea, headacheDIAGNOSIS: Neck painLAB ORDERSOrder Description Priority Entered Acknowledged InitialedCBC w Diff STAT 20:19 21:23 Zeeshan Araujo RN PA;CMP STAT 20:19 04/12/2019 21:23 Zeeshan Araujo RN PA;Lipase STAT 20:19 04/12/2019 21:23 Zeeshan Araujo RN PA;Urinalysis (Clean STAT 20:19 04/12/2019 21:28 SergioenCsoraida) Aditya Araujo RN PA;Rapid Strep Screen STAT 20:19 04/12/2019 21:28 Zeeshan BALBUENA;Influenza Nasal A B STAT 20:19 04/12/2019 21:23 Zeeshan Araujo RN PA;Lactic Acid STAT 20:47 04/12/2019 21:23 Zeeshan Araujo RN PA;Blood Culture STAT 20:47 04/12/2019 21:23 Eoyiqhc89r X2 (Keyur Araujo RN20:47 04/12/2019) PA;Blood Culture STAT 20:47 04/12/2019 21:28 Dyecjmo70o X2 (Keyur Araujo RN20:57 04/12/2019) PA;DIAGNOSTIC STUDY ORDERSOrder Description Priority Entered Acknowledged Initialed [address] [facility] Emergency [facility] [address] [place] [address] Phone #: ext- [phone] 04/12/2019 19:30 Patient: NIMA DIAZ Sex: F : 1990 Age: 28yMEDICATION/IV/DRIP/FLUID ORDERSOrder Description Priority Entered Acknowledged InitialedReglan IVP 10 mg 20:19 04/12/2019 Cancelled: Physician Order 21:07 Aditya BALBUENA PA;Benadryl IVP 25 mg 20:19 04/12/2019 Cancelled: Physician Order 21:07 Aditya BALBUENA PA;IV NS : Bolus 1000 20:19 04/12/2019 Cancelled: Physician Order 21:07 Ana M, then 150 mL/hr Aditya BALBUENA PA;Toradol IVP 15 mg 20:19 04/12/2019 Cancelled: Physician Order 21:07 Aditya BALBUENA PA;Metoclopramide PO 21:08 04/12/2019 21:24 [id number] mg Aditya Araujo RN PA;Benadryl PO 50 mg 21:08 04/12/2019 21:24 Zeeshan Araujo RN PA;Toradol IM 30 mg 21:08 04/12/2019 21:24 Zeeshan Araujo RN PA;Percocet PO 2 tab 22:31 04/12/2019 Cancelled: Patient Refusal 23:02 Zeeshan(NOW, HIGH ALERT Aditya Araujo RNMEDICATION) PA;GENERAL ORDERSOrder Description Priority Entered Acknowledged InitialedNPO 20:19 04/12/2019 21:23 Zeeshan Araujo RN PA;Saline Lock 20:19 04/12/2019 Cancelled: Physician Order 21:29 Zeeshan Araujo RN PA;[Electronically signed by Zeeshan Araujo RN (23:03 04/12/2019)][Electronically signed by Aditya Conley PA (23:26 04/12/2019)][Electronically locked by Zeeshan Araujo RN (23:03 04/12/2019)] Name Value Range Interpretation Code Description Data Shelbi rce(s) Supporting Document(s) ID Date Data Source [id number] 04/12/2019 07:48:[address] [facility] [address] [facility] [address] [place] [address] Phone #: ext- [phone] 04/12/2019 19:30 Patient: NIMA DIAZ Sex: F : 1990 Age: 28yWeight: 107.9 kgHeight/Length: 62 in.BMI: 43.6ALLERGIES: Diamox, Sulfa AntibioticsThe patient's Home Medications are listed below:CONTINUE TAKING THE FOLLOWING MEDICATIONS: Align Oral, daily, at bedtime BusPIRone HCl Oral 10 mg, 2x a day Cabergoline Oral (0.5 mg) 1 tablet, once a week, on sunday Diclofen gel 1% PRN Ferrous Sulfate Oral 325 mg, 2x a day Folic Acid Oral (1 mg) 4 tablets, daily, every AM Lidocaine External (5 %), prn Magnesium Oxide Oral (400 mg) 1 tablet, daily, at bedtime MetFORMIN HCl Oral 850 mg, 2x a day PROzac Oral (40 mg) 1 capsule, daily, every AM Pyridoxine HCl Oral (100 mg) 1/2 tablet, 3x a day Topamax Oral (200 mg) 1 tablet, 2x a day Vitamin B12 Oral (1000 mcg) 1/2 tablet, daily, every AM Vitamin D3 Oral 125 mcg, daily, every AM Zanaflex Oral 4 mg, 2x a day, 1.5 tabs at night 2 Medication Reconciliation Report [facility] [address] [place] [address] Phone #: ext- [phone] 04/12/2019 19:30 Patient: NIMA DIAZ Sex: F : 1990 Age: 28y Zofran ODT Oral (4 mg) 1 tablet, q8h, last dose: 1500, prnThe source(s) of the original Home Medication information:Not obtained.The following Medications were given to the patient in the Emergency Department:Metoclopramide [PO] PO 10 mg, administered: 04/12/2019 9:24:00 PMBenadryl [PO] PO 50 mg, administered: 04/12/2019 9:24:00 PMToradol [IM] IM 30 mg, administered: 04/12/2019 9:24:00 PMThe following Medications were prescribed to the patient:Pending - Medrol (Jeff) 4 mg tablets in a dose pack Take 1 tablet as directed for 6 days -- Dispense 1pack. Refills: 0. Substitution permitted.Pharmacy - [facility] [id number] ; [place] [address]. . -- SREE Martinez Name Value Range Interpretation Code Description Data Shelbi rce(s) Supporting Document(s) ID Date Data Source [id number] 04/12/2019 07:48:[address] [facility] [address] [facility] [address] [place] [address] Phone #: ext- [phone] 04/12/2019 19:30 Patient: NIMA DIAZ Sex: F : 1990 Age: 28yWeight: 107.9 kgHeight/Length: 62 inBMI: 43.6ALLERGIES: Diamox, Sulfa Antibiotics Date/Time Medication Administered Medication OrderedGiven METOCLOPRAMIDE [PO] Metoclopramide PO 10 mg21:04/12/2019 Dose: 10 mg Tablets POStHeber Holden BENADRYL [PO] (DIPHENHYDRAMINE Benadryl PO 50 mg21:04/12/2019 HCL)Zeeshan Araujo RN Dose: 50 mg Capsules POGiven TORADOL [IM] (KETOROLAC Toradol IM 30 mg21:24 04/12/2019 TROMETHAMINE)Zeeshan Araujo RN Dose: 30 mg IM Name Value Range Interpretation Code Description Data Shelbi rce(s) Supporting Document(s) ID Date Data Source [id number] 04/12/2019 07:48:[address] [facility] [address] [facility] [address] [place] [address] Phone #: ext- [phone] 04/12/2019 19:30 Patient: NIMA DIAZ Sex: F : 1990 Age: 28yChronic neck pain. 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).INSTRUCTIONS(You may take 1000mg of Tylenol 4 times per day.).Your Current Medications: Your current home medications have been reviewed.CONTINUE TAKING THE FOLLOWING MEDICATIONS:Align Oral : daily, at bedtime.BusPIRone HCl Oral : 10 mg 2x a day.Cabergoline Oral : Tablet 0.5 mg, 1 tablet once a week, on sunday.Diclofen gel 1% PRN*.Ferrous Sulfate Oral : 325 mg 2x a day.Folic Acid Oral : Tablet 1 mg, 4 tablets daily, every AM.Lidocaine External : Patch 5 %, prn.Magnesium Oxide Oral : Tablet 400 mg, 1 tablet daily, at bedtime.MetFORMIN HCl Oral : 850 mg 2x a day.PROzac Oral : Capsule 40 mg, 1 capsule daily, every AM.Pyridoxine HCl Oral : Tablet 100 mg, 1/2 tablet 3x a day.Topamax Oral : Tablet 200 mg, 1 tablet 2x a day.Vitamin B12 Oral : Tablet Extended Release 1000 mcg, 1/2 tablet daily, every AM.Vitamin D3 Oral : 125 mcg daily, every AM.Zanaflex Oral : 4 mg 2x a day, 1.5 tabs at night.Zofran ODT Oral : Tablet Disintegrating 4 mg, 1 tablet q8h, Last: 1500, prn.Prescription Medications:Pending - Medrol (Jeff) 4 mg tablets in a dose pack Take 1 tablet as directed for 6 days -- Dispense 1pack. Refills: 0. Substitution permitted.Pharmacy - [facility] [id number] ; [place] [address]. .Follow-up:Follow up with your doctor Sunday. Call for an appointment. Reason for referral: evaluation and treatment.Summary of care provided to patient.Understanding of the discharge instructions verbalized by patient and family. [address] [facility] [address] [place] [address] Phone #: ext- [phone] 04/12/2019 19:30 Patient: NIMA DIAZ Sex: F : 1990 Age: 28y ADDITIONAL INFORMATIONNeck Pain There are several possible causes of neck pain when thereis no injury: You can get a minor ligament sprain or muscle strain from a sudden minor neck movement. Sleeping with your neck in an awkward position can also cause this. Some people respond to emotional stress by tensing the muscles of their neck, shoulders, and upper back. Chronic spasm in these muscles can cause neck pain and sometimes headaches. Gradual wear and tear of the joints in the spine can cause degenerative arthritis. This can be a source of occasional or chronic neck pain. The spinal disks may bulge and put pressure on a nearby spinal nerve. This can happen as a natural result of aging or repeated small injuries to the neck. The spinal disks are the cushions between each spinal bone. This causes tingling, pain, or numbness that spreads from the neck to the shoulder, arm, or hand on one side.Acute neck pain usually gets better in 1 to 2 weeks. Neck pain related to disk disease, arthritis in thespinal joints, or spinal stenosis can become chronic and last for months or years. Spinal stenosis isnarrowing of the spinal canal. [address] [facility] [address] [place] [address] Phone #: ext- [phone] 04/12/2019 19:30 Patient: NIMA DIAZ Sex: F : 1990 Age: 28yX- rays are usually not ordered for the initial evaluation of neck pain. However, X-rays may be done ifyou had a forceful physical injury, such as a car accident or fall. If pain continues and doesn't respondto medical treatment, X-rays and other tests may be done at a later time.Home care Rest and relax the muscles. Use a comfortable pillow that supports the head. It should also help keep the spine in a neutral position. The position of the head should not be tilted forward or backward. A rolled up towel may help for a custom fit. Some people find relief with heat. Heat can be applied with either a warm shower or bath or a moist towel heated in the microwave and massage. Others prefer cold packs. You can make an ice pack by filling a plastic bag that seals at the top with ice cubes or crushed ice and then wrapping it with a thin towel. Try both and use the method that feels best for 15 to 20 minutes, several times a day. Whether using ice or heat, be careful that you do not injure your skin. Never put ice directly on the skin. Always wrap the ice in a towel or other type of cloth.This is very important, especially in people with poor skin sensations. Try to reduce your stress level. Emotional stress can lead to neck muscle tension and get in the way of or delay the healing process. You may use jvfm-[id number] pain medicine to control pain, unless another medicine was prescribed. If you have chronic liver or kidney disease or ever had a stomach ulcer or GI bleeding, talk with your healthcare provider before using these medicines.Follow-up careFollow up with your healthcare provider if your symptoms do not show signs of improvement after oneweek. Physical therapy or further tests may be needed.If X-rays, CT scans, or MRI scans were taken, you will be told of any new findings that may affectyour care.Call [phone] if you have: Sudden weakness or numbness in one or both arms Neck swelling, difficulty or painful swallowing Difficulty breathing Chest pain [address] [facility] [address] [place] [address] Phone #: [phone]- [phone] 04/12/2019 19:30 Patient: NIMA DIAZ Sex: F : 1990 Age: 28yWhen to seek medical adviceCall your healthcare provider right away if any of these occur: Pain becomes worse or spreads into one or both arm Increasing headache Fever of 100.4F (38C) or higher, or as directed by your healthcare provider [id number] [employer]. [address] [place] [address]. All rights reserved. This information is not intended as asubstitute for professional medical care. Always follow your healthcare professional's instructions. You have been given the following additional information: Neck Pain(Electronically signed by SREE Martinez 04/12/2019 23:26) Name Value Range Interpretation Code Description Data Shelbi rce(s) Supporting Document(s) ID Date Data Source [id number] 04/12/2019 07:48:[address] [facility] 1 Clinical Report - Nurses [facility] [address] [place] [address] Phone #: ext- [phone] 04/12/2019 19:30 Patient: NIMA DIAZ Sex: F : 1990 Age: 28yTRIAGEArrived by private vehicle. Historian: patient. Accompanied by family.Triage time: 19:40 04/12/2019. Acuity: LEVEL 4.Chief Complaint: (left sided head pain).This is a recurrent problem. Symptoms are constant and still present (1 weeks ago). ( [facility] work showed signs of infection and they didnt feel comfortabletapping shunt and recommended follow up at [facility] which is on 04/24/19. states that she isbasically here for pain control.). The patient has had measured temperature of 101.7 F orally.SEPSIS SCREEN: NEGATIVE. --19:48 04/12/19 Zeeshan Araujo RN19:39 04/12/19. BP: 117/85 (regular adult cuff) taken on the left arm, via an automated monitor, whilesitting. MAP: 95. HR: 97 (regular, normal rate and strong). RR: 16 (regular, unlabored and normal). [id number]: 100% on room air. Temp: 98.5 F (oral). Pain level now: 11/12. --19:48 04/12/19 Zeeshan Araujo RNTreatment LAMINATION INSPECTOR:Took Tylenol. --19:50 04/12/19 Zeeshan Araujo RN.Weight: 107.9 kg stated. Height/Length: 62 inches Per Patient. BMI: 43.6. --19:45 04/12/19 Zeeshan Araujo RN.MedicationsAlign Oral, daily at bedtime. BusPIRone HCl Oral 10 mg, 2x a day. Cabergoline Oral (Tablet 0.5 mg) 1 tablet, once a week (on sunday). Diclofen gel 1% PRN. Ferrous Sulfate Oral 325 mg, 2x a day. --19:49 04/12/19 Zeeshan Araujo RN Folic Acid Oral (Tablet 1 mg) 4 tablets, daily every AM. Lidocaine External (Patch 5 %), as needed. Magnesium Oxide Oral (Tablet 400 mg) 1 tablet, daily at bedtime. MetFORMIN HCl Oral 850 mg, 2x a day. PROzac Oral (Capsule 40 mg) 1 capsule, daily every AM. Pyridoxine HCl Oral (Tablet 100 mg) 1/2 tablet, 3x a day. Topamax Oral (Tablet 200 mg) 1 tablet, 2x a day. --19:49 04/12/19 Zeeshan Araujo RN Vitamin B12 Oral (Tablet Extended Release 1000 mcg) 1/2 tablet, daily every AM. Vitamin D3 Oral 125 mcg, daily every AM. Zanaflex Oral 4 mg, 2x a day (1.5 tabs at night). Zofran ODT Oral (Tablet Disintegrating 4 mg) 1 tablet, q8h as needed, last dose 1500. --19:49 04/12/19 2 Clinical Report - Nurses [facility] [address] [place] [address] Phone #: ext- [phone] 04/12/2019 19:30 Patient: NIMA DIAZ Sex: F : 1990 Age: 28y Zeeshan Araujo RN The following entry was struck by Zeeshan Araujo RN, 20:06 (04/12/19) Reason - other. Hydrocodone-Acetaminophen Oral (Tablet 7.5-325 mg) 1 tablet, q6h as needed. --19:49 04/12/19 Zeeshan Araujo RN . Allergies Diamox.(Anaphylaxis, angioedema) Sulfa Antibiotics.(Anaphylaxis, angioedema) --19:49 04/12/19 Zeeshan Araujo RN. PROBLEMS: Herpes Zoster. INTERCRANIAL HYPERTENSION. Irritable bowel syndrome (disorder). Seizure. Neurological Disease. Migraine Headache. PCOS. Ovarian Cyst. --19:50 04/12/19 Zeeshan Araujo RN. History PAST MEDICAL HX: Last normal menstrual period- Mar. SOCIAL HX: Never smoker. No alcohol use or drug use. The patient was offered HIV testing but declined and hepatitis C testing but declined. The patient has not traveled outside the [place] Infectious disease exposure: No infectious disease exposure. SELF HARM ASSESSMENT: Self harm assessment was performed. The patient answered "no" to the question(s) "Have you recently felt down, depressed, or hopeless?", "Do you have thoughts of harming or killing yourself?", "Do you have a plan for harming or killing yourself?", "Have you recently had thoughts about harming or killing others?", "Do you have any dangerous items in your possession?", "Have you noticed less interest or pleasure in doing things?& quot;, "Are you here because you tried to hurt yourself?" and "Have you ever tried to hurt yourself before today?". ABUSE ASSESSMENT: No report of abuse. FALL RISK ASSESSMENT: Fall risk assessment completed. No risk factors identified. --:04/12/19 Zeeshan Araujo RN. Assessment The patient states feels the same. --04/12/19 Zeeshan Araujo RN.PHYSICAL ASSESSMENTAmbulatory to room.GENERAL / NEURO / PSYCH: Alert. Oriented X 4. Appears in no acute distress. 3 Clinical Report - Nurses [facility] [address] [place] [address] Phone #: ext- [phone] 04/12/2019 19:30 [id number] Sex[facility] F : 1990 Age: 28y HEENT: Pupils equal, round and reactive to light. No facial asymmetry noted. Mucous membranes are pink. RESPIRATORY: Respirations not labored. Breath sounds within normal limits. CVS: Pulses within normal limits. GI / : Abdomen soft and nontender and normal bowel sounds. SKIN: Skin is warm and dry. Abnormal skin turgor. --04/12/19 Zeeshan Araujo RN.NURSING PROGRESS NOTESHead of bed elevated 30 degrees. Reassurance given to the patient. Call light placed in reach. Bedplaced in lowest position. Brakes of bed on. Patient ready for evaluation- ED physician notified. --19:482 Zeeshan Araujo RN 21:11 04/12/2019 Four (4) unsuccessful IV access attempts including the right upper arm and forearm and left antecubital space and forearm. Applied bandage (unsuccessful attempt by 2 nurses Provider made aware). --21:04/12/19 Zeeshan Araujo RN 21:24 04/12/2019 Metoclopramide PO Tablets 10 mg given. Allergies verified and confirmed 5 rights. Information reviewed with patient including reason for taking this medication, signs of allergic reaction and precautions. Verbalizes understanding. --:04/12/19 Zeeshan Araujo RN 21:04/12/2019 Benadryl (diphenhydrAMINE HCl) PO Capsules 50 mg given. Allergies verified and confirmed 5 rights. Information reviewed with patient including reason for taking this medication, signs of allergic reaction, precautions and sedative warning. Verbalizes understanding. --:04/12/19 Zeeshan Araujo RN 21:04/12/2019 Toradol (Ketorolac Tromethamine) IM 30 mg given. Given in the right deltoid. Allergies verified and confirmed 5 rights. Information reviewed with patient including reason for taking this medication, signs of allergic reaction and precautions. Verbalizes understanding. --04/12/19 Zeeshan Araujo RN Checked patient name and birthdate: patient confirmed. Flu swab obtained by RN via nasal swab. Labeled in the presence of the patient and sent to lab. Checked patient name and birthdate: patient confirmed. Throat swab obtained by nurse for rapid strep; labeled in the presence of the patient and sent to lab. --:04/12/19 Zeeshan Araujo RN.DISPOSITION / DISCHARGE Departure time: 23:04/12/2019. Condition at departure: improved. No learning barriers present. Discharge instructions provided and reviewed with the patient. Reviewed medication(s) side effects, precautions, dosing and course information. Prescription(s) sent electronically to pharmacy. Reviewed referral to family practice for followup. Patient verbalized understanding. Written instructions provided in Omani. The patient was discharged home and accompanied by spouse. She left ambulatory and via private vehicle. Spouse driving. --23:04/12/19 Zeeshan Araujo RN 23:00 04/12/19. BP: 122/78 (regular adult cuff) taken on the left arm, via an automated monitor, while 4 Clinical Report - Nurses [facility] [address] [place] [address] Phone #: ext- [phone] 04/12/2019 19:30 Patient: NIMA DIAZ Sex: F : 1990 Age: 28y sitting. MAP: 92. HR: 84 (regular and normal rate). RR: 18 (regular, unlabored and normal). O2 saturation: 100% on room air. Temp: 97.4 F (oral). Pain level now: 10/12. --23:01 04/12/19 Zeeshan Araujo RN.Locked/Released at 04/12/2019 23:03 by Zeeshan Araujo RN Name Value Range Interpretation Code Description Data Shelbi rce(s) Supporting Document(s) ID Date Data Source [id number] 04/12/2019 07:48:[address] [facility] 1 Clinical Report - Physicians/Mid Levels [facility] [address] [place] [address] Phone #: ext- [phone] 04/12/2019 19:30 Patient: NIMA DIAZ Sex: F : 1990 Age: 28y Time Seen: 20:10 04/12/2019. Arrived- By private vehicle. Historian- patient.HISTORY OF PRESENT ILLNESS Chief Complaint: NAUSEA, VOMITING, DIARRHEA and HEADACHE. ABNORMAL LAB. This started 1 weeks ago; Pt was seen at [facility] last Sunday then was notified by [facility] last Sunday that blood work showed signs of infection and they didnt feel comfortable tapping shunt and recommended follow up at [facility] which is on 04/24/19. H carmen states that she is basically here for pain control.). The patient has had measured temperature of 101.7 F orally. and is still present. It was gradual in onset and has been constant. At its maximum, severity described as moderate. When seen in the E.D., severity described as moderate. No loss of appetite, weight loss, visual disturbance, fatigue or muscle aches. No weakness. She has had a headache. Denies sleep problem. No decreased urine output. Similar symptoms previously. Patient has had similar symptoms many times. Recent medical care: The patient was seen recently at this facility and another facility in the emergency department.REVIEW OF SYSTEMSLast normal menstrual period- Mar 28. She has had fever, nausea, vomiting, diarrhea and chills. Shehas had a headache. No sore throat, sinus drainage, nasal congestion, cough or difficulty breathing. Nochest pain, abdominal pain, black stools, bloody stools or difficulty with urination. No abnormal bleeding,skin rash, back pain, calf pain or blackouts. No double vision. No difficulty with ambulation.PAST HISTORYProblems:Herpes Zoster.INTERCRANIAL HYPERTENSION.Irritable bowel syndrome (disorder).Seizure.Neurological Disease.Migraine Headache.PCOS.Ovarian Cyst. Medications: Vitamin B12 Oral (Tablet Extended Release 1000 mcg) 1/2 tablet, daily every AM. Vitamin D3 Oral 125 mcg, daily every AM. Zanaflex Oral 4 mg, 2x a day (1.5 tabs at night). Zofran ODT Oral (Tablet Disintegrating 4 mg) 1 tablet, q8h as needed, last dose 1500. 2 Clinical Report - Physicians/Mid Levels [facility] [address] [place] [address] Phone #: ext- [phone] 04/12/2019 19:30 Patient: NIMA DIAZ Sex: F : 1990 Age: 28y Folic Acid Oral (Tablet 1 mg) 4 tablets, daily every AM. Lidocaine External (Patch 5 %), as needed. Magnesium Oxide Oral (Tablet 400 mg) 1 tablet, daily at bedtime. MetFORMIN HCl Oral 850 mg, 2x a day. PROzac Oral (Capsule 40 mg) 1 capsule, daily every AM. Pyridoxine HCl Oral (Tablet 100 mg) 1/2 tablet, 3x a day. Topamax Oral (Tablet 200 mg) 1 tablet, 2x a day. Align Oral, daily at bedtime. BusPIRone HCl Oral 10 mg, 2x a day. Cabergoline Oral (Tablet 0.5 mg) 1 tablet, once a week (on sunday). Diclofen gel 1% PRN. Ferrous Sulfate Oral 325 mg, 2x a day. Allergies: Diamox.(Anaphylaxis, angioedema) Sulfa Antibiotics.(Anaphylaxis, angioedema).SOCIAL HISTORYNever smoker. No alcohol use or drug use.PHYSICAL EXAMVital Signs: 04/12/2019 19:39 BP: sitting 117/85. MAP: 95. HR: 97. RR: 16. O2 saturation: 100% on roomair. Temp: 98.5 F. Pain level now: 10. Have been reviewed as normal. Oxygen saturation normal.Appearance: Alert. No acute distress.Eyes: Pupils equal, round and reactive to light. Eyes normal inspection.ENT: Ears normal. Nose normal. Pharynx normal.Neck: Normal inspection. Neck supple.CVS: Normal heart rate and rhythm. Heart sounds normal.Respiratory: No respiratory distress. Breath sounds normal. Chest nontender.Abdomen: No visible injury. Soft and nontender. Bowel sounds normal. No organomegaly. No mass.Back: Normal inspection.Skin: Skin warm and dry. Normal skin color. No rash. Normal skin turgor.Extremities: Extremities exhibit normal ROM. No lower extremity edema.Neuro: Oriented X 3. No motor deficit. No sensory deficit. Reflexes normal.LABS, X-RAYS, AND EKGLaboratory Tests: Laboratory tests have been ordered, with results reviewed and considered in themedical decision making process. Lactic Acid: (SOPHY: 04/12/2019 20:39) ( MsgRcvd 04/12/2019 21:18) Final results Test Result Flag Units (Reference) LACTIC ACID 1.7 MMOL/L (0.2 - 2.2) CBC w Diff: (SOPHY: 04/12/2019 20:39) ( MsgRcvd 04/12/2019 21:09) Final results Test Result Flag Units (Reference) CBC W/AUTOMATED DIFF COMPLETE BLOOD COUNT 3 Clinical Report - Physicians/Mid Levels [facility] [address] [place] [address] Phone #: ext- [phone] 04/12/2019 19:30 Patient: NIMA DIAZ Sex: F : 1990 Age: 28y WBC 8.5 10/uL (4.2 - 11.0) RBC 4.87 10/uL (4.20 - 5.40) HEMOGLOBIN 14.3 g/dL (12.0 - 16.0) HEMATOCRIT 44.9 % (37.0 - 47.0) MCV 92.2 fL (81.0 - 101) MCH 29.4 pg (27.0 - 34.0) MCHC 31.8 g/dL (31.0 - 36.0) RDW 13.5 % (11.5 - 14.5) PLATELETS 381 10/uL (150 - 450) MPV 9.5 fL (7.4 - 10.4) NEUT 57.8 % (37.0 - 80.0) LYMPH 30.5 % (25.0 - 40.0) MONO 7.4 % (3.0 - 8.0) EOS 3.3 % (0.0 - 7.0) BASO 0.6 % (0.0 - 2.5) %IG 0.4 H % (0.0 - 0.0) %NRBC 0.0 % (0.0 - 0.0) #NEUT 4.90 10/uL (2.00 - 6.90) #LYMPH 2.59 10/uL (0.60 - 3.40) #MONO 0.63 10/uL (0.00 - 0.90) #EOS 0.28 10/uL (0.00 - 0.70) #BASO 0.05 10/uL (0.00 - 0.20) #IG 0.03 10/uL (0.00 - 0.10) #NRBC 0.00 10/uL (0.00 - 0.00) MANUAL DIFF NOT INDICATED RBC MORPH NOT INDICATEDCMP: (SOPHY: 04/12/2019 20:39) ( MsgRcvd 04/12/2019 21:26) Final results Test Result Flag Units (Reference) COMPREHENSIVE METABOLIC PANEL COMPREHENSIVE METABOLIC PANEL SODIUM 139 mEq/L (134 - 153) POTASSIUM 4.6 mEq/L (3.6 - 5.0) CHLORIDE 100 mEq/L (98 - 107) CO2 29 MEQ/L (22 - 30) GLUCOSE 92 MG/DL (65 - 110) BUN 10 MG/DL (7 - 21) CREATININE 0.6 L MG/DL (0.7 - 1.5) BUN/CREAT 17 (8 - 27) TOTAL PROTEIN 7.5 G/DL (6.3 - 8.2) ALBUMIN 4.9 G/DL (3.9 - 5.0) GLOBULIN 2.6 GM/DL (2.4 - 3.2) A/G RATIO 1.9 (0.8 - 2.0) CALCIUM 10.1 MG/DL (8.4 - 10.2) TOTAL BILI <0.7 MG/DL (0.2 - 1.3) ALKALINE PHOS 81 U/L (38 - 126) SGOT/AST 27 U/L (5 - 40) SGPT/ALT 53 U/L (7 - 56) ANION GAP 10.0 mmol/L (8.0 - 16.0) AGE 28 yrs NON-AA GFR >60 mL/min AFR AMER GFR >60 mL/min Male GFR Interprentation 20-49 yrs >60 mL/min [id number] yrs >56 mL/min Normal 60-69 yrs >49 mL/min Normal 70-79yrs>42 mL/min Normal 80 and above >35 mL/min Normal Female GFRInterpretation 20-39 yrs >60 mL/min Normal 40-49 yrs >58 mL/minNormal 50-59 yrs >51 mL/min Normal 60-69 yrs >45 mL/min Bqnxpe67-52 yrs >39 mL/min Normal 80 and above >32 mL/min NormalLipase: (SOPHY: 04/12/2019 20:39) ( MsgRcvd 04/12/2019 21:26) Final results Test Result Flag Units (Reference) LIPASE 32 U/L (13 - 60)Urinalysis: (SOPHY: 04/12/2019 19:50) ( MsgRcvd 04/12/2019 20:54) Final results Test Result Flag Units (Reference) 4 Clinical Report - Physicians/Mid Levels [facility] [address] [place] [address] Phone #: ext- [phone] 04/12/2019 19:30 Patient: NIMA DIAZ Sex: F : 1990 Age: 28y URINALYSIS URINALYSIS SOURCE Clean Catch COLOR yellow (NORMAL: Yello CLARITY clear (NORMAL: Clear SPEC GRAVITY 1.025 (1.001 - 1.030 pH 5 (5 - 9) GLUCOSE NORM (NORMAL: Negat BILIRUBIN NEG (NORMAL: Negat KETONE 5 A (NORMAL: Negat PROTEIN 15 (NORMAL: Negat NITRITE NEG (NORMAL: Negat BLOOD NEG (NORMAL: Negat LEUK EST NEG (NORMAL: Negat UROBILINOGEN NOR (less than 1.0 MICROSCOPIC Not Indicate Rapid Strep Screen: (SOPHY: 04/12/2019 21:25) ( MsgRcvd 04/12/2019 21:37) Final results Test Result Flag Units (Reference) RAPID STREP NEGATIVE (NORMAL: NEGAT RAPID STREP REENTER NEGATIVE (NORMAL: NEGAT { PROCEDURAL CONTROL VALID ){ KIT LOT # [id number] ){ KIT EXP DATE 05/01/20 )The Strep A 2 assay utilizes isothermal nucleic acid amplification technology fothe qualitative detection of Group A Strep bacterial nucleic acid in throat swabspecimens.All negative test results no longer need to be confirmed with a culture. Follow-up testing requiring a culture is necessary if clinical symptoms persist, or inthe event of an acute rheumatic fever outbreak. A culture will need to beordered by the Qualified Medical Provider.Negative results do not preclude infection with Group A Strep and should not beused as the sole basis for treatment. Influenza Nasal A B: (SOPHY: 04/12/2019 20:52) ( MsgRcvd 04/12/2019 21:30) Final results Test Result Flag Units (Reference) INFLUENZA A NEGATIVE (NORMAL: NEGAT INFLUENZA B NEGATIVE (NORMAL: NEGAT INFLUENZA A REENTER NEGATIVE (NORMAL: NEGAT INFLUENZA B REENTER NEGATIVE (NORMAL: NEGAT PROCEDURAL CONTROL VALID KIT LOT # _[id number] 04/12/19.2128.GBT. KIT EXP DATE _02/28/20 04/12/19.GBT.The Influenza A utilizing an isothermal nucleic acid amplification technology for thequalitative detection of influenza A and B viral RNA.Negative results do not preclude influenza virus infection and should not beused as the sole basis for diagnosis, treatment or other patient managementdecisions..PROGRESS AND PROCEDURESCourse of Care: 22:32 Apr 12 2019. Evaluation after observation. (Pt is conversing appropriately, twotrips to the bathroom without distress animated while conversing, no evidence of Meningeal irritation orfocal neuro deficit, reassured her that on exam and lab work does not represent infection, she and vicentasharad have both reported that she just needs pain [facility] however she is advised to follow up with PCM for pain management as this is chronic conditionand I will not rx Dilaudid.). Patient and spouse counseled in person regarding the patient's stable condition, test results, diagnosis and need for follow-up. Patient and spouse agrees with plan of care. 22:35 Apr 12 2019. Disposition: Discharged home in good and improved condition (22:35 Apr 12 2019). 5 Clinical Report - Physicians/Mid Levels [facility] Emergency Department [address] [place] [address] Phone #: ext- [phone] 04/12/2019 19:30 Patient: NIMA DIAZ Sex: F : 1990 Age: 28yCLINICAL IMPRESSION Chronic neck pain. 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 Your Current Medications: Your current home medications have been reviewed. CONTINUE TAKING THE FOLLOWING MEDICATIONS: Align Oral : daily, at bedtime. BusPIRone HCl Oral : 10 mg 2x a day. Cabergoline Oral : Tablet 0.5 mg, 1 tablet once a week, on sunday. Diclofen gel 1% PRN*. Ferrous Sulfate Oral : 325 mg 2x a day. Folic Acid Oral : Tablet 1 mg, 4 tablets daily, every AM. Lidocaine External : Patch 5 %, prn. Magnesium Oxide Oral : Tablet 400 mg, 1 tablet daily, at bedtime. MetFORMIN HCl Oral : 850 mg 2x a day. PROzac Oral : Capsule 40 mg, 1 capsule daily, every AM. Pyridoxine HCl Oral : Tablet 100 mg, 1/2 tablet 3x a day. Topamax Oral : Tablet 200 mg, 1 tablet 2x a day. Vitamin B12 Oral : Tablet Extended Release 1000 mcg, 1/2 tablet daily, every AM. Vitamin D3 Oral : 125 mcg daily, every AM. Zanaflex Oral : 4 mg 2x a day, 1.5 tabs at night. Zofran ODT Oral : Tablet Disintegrating 4 mg, 1 tablet q8h, Last: 1500, prn. Prescription Medications: Pending - Medrol (Jeff) 4 mg tablets in a dose pack Take 1 tablet as directed for 6 days -- Dispense 1 pack. Refills: 0. Substitution permitted. Pharmacy - [facility] [phone] ; [place] [address]. . Follow-up: Follow up with your doctor Sunday. Call for an appointment. Reason for referral: evaluation and treatment. Summary of care provided to patient. Understanding of the discharge instructions verbalized by patient and family. 6 Clinical Report - Physicians/Mid Levels [facility] Emergency Department [address] [place] [address] Phone #: ext- [phone] 04/12/2019 19:30 Patient: NIMA DIAZ Sex: F : 0 1990 Age: 28y(Electronically signed by SREE Martinez 04/12/2019 23:26) Name Value Range Interpretation Code Description Data Shelbi rce(s) Supporting Document(s) ID Date Data Source [id number] 04/12/2019 09:36:00 PM [facility] Name Value Range Interpretation Code Description Data [facility] rce(s) Supporting Document(s) RAPID STREP NEGATIVE NORMAL: NEGATIVE [facility] RAPID STREP REENTER NEGATIVE NORMAL: NEGATIVE [facility] { PROCEDURAL CONTROL VALID ){ KIT LOT # [id number] ){ KIT EXP DATE 05/01/20 )The Strep A 2 assay utilizes isothermal nucleic acid amplification technology fothe qualitative detection of Group A Strep bacterial nucleic acid in throat swabspecimens.All negative test results no longer need to be confirmed with a culture. Follow-up testing requiring a culture is necessary if clinical symptoms persist, or inthe event of an acute rheumatic fever outbreak. A culture will need to beordered by the Qualified Medical Provider.Negative results do not preclude infection with Group A Strep and should not beused as the sole basis for treatment. ID Date Data Source [id number] 04/19/2019 02:13:00 PM [facility] Name Value Range Interpretation Code Description Data Shelbi rce(s) Supporting Document(s) CULTURE BLOOD [facility] _CULTURE BLOOD_ TEST PERFORM ED AT [address] [address] CLIA# [id number] SEE SCANNED REPORT{ PRELIM ID Date Data Source [id number] 04/18/2019 10:34:00 AM EST [facility] [address] Name Value Range Interpretation Code Description Data Shelbi rce(s) Supporting Document(s) Bacteria identified in Blood by Culture [facility] NO GROWTH AFTER 5 DAYS ID Date Data Source [id number] 04/19/2019 02:13:00 PM [facility] Value Range Interpretation Code Description Data Shelbi rce(s) Supporting Document(s) CULTURE BLOOD [facility] _CULTURE BLOOD_ TEST PERFORM ED AT [address] [address] CLIA# [id number] SEE SCANNED REPORT{ PRELIM ID Date Data Source [id number] 04/12/2019 09:29:00 PM [facility] Value Range Interpretation Code Description Data Shelbi rce(s) Supporting Document(s) Influenza virus A Ag [Presence] in Nasopharynx by Immunoassa y NEGATIVE NORMAL: NEGATIVE [facility] Influenza virus B Ag [Presence] in Nasopharynx by Immunoassa y NEGATIVE NORMAL: NEGATIVE [facility] NEGATIVENEGATIVE PROCEDURAL CO NTROL VALID KIT LOT # _[id number] 04/12/19.GBT. KIT EXP DATE _02/28/20 04/12/19.GBT.The Influenza A & B assay is a rapid molecular in vitro diagnostic testutilizing an isothermal nucleic acid amplification technology for thequalitative detection of influenza A and B viral RNA.Negative results do not preclude influenza virus infection and should not beused as the sole basis for diagnosis, treatment or other patient managementdecisions. ID Date Data Source [id number] 04/12/2019 09:26:00 PM [facility] Value Range Interpretation Code Description Data Shelbi rce(s) Supporting Document(s) Lipase [Enzymatic activity/volume] in Serum or Plasma 32 U/L 13 - 60 [facility] ID Date Data Source [id number] 04/12/2019 09:26:[address] [facility] Name Value Range Interpretation Code Description Data Shelbi rce(s) Supporting Document(s) COMPREHENSIVE METABOLIC PANEL [facility] COMPREHENSIVE METABOLIC PANEL Sodium [Moles/volume] in Serum or Plasma 139 mEq/L 134 - 153 [facility] Potassium [Moles/volume] in Serum or Plasma 4.6 mEq/L 3.6 - 5.0 [facility] Chloride [Moles/volume] in Serum or Plasma 100 mEq/L 98 - 107 [facility] Carbon dioxide, total [Moles/volume] in Serum or Plasma 29 MEQ/L 22 - 30 [facility] Glucose [Mass/volume] in Serum or Plasma 92 MG/DL 65 - 110 [facility] BUN 10 MG/DL 7 - 21 [facility] Creatinine [Mass/volume] in Serum or Plasma 0.6 MG/DL 0.7 - 1.[address] [facility] BUN/CREAT 17 8 - 27 [facility] Protein [Mass/volume] in Serum or Plasma 7.5 G/DL 6.3 - 8.2 [facility] Albumin [Mass/volume] in Serum or Plasma 4.9 G/DL 3.9 - 5.0 [facility] Globulin [Mass/volume] in Serum by calculation 2.6 GM/DL 2.4 - 3.2 [facility] A/G RATIO 1.9 0.8 - 2.0 [facility] Calcium [Mass/volume] in Serum or Plasma 10.1 MG/DL 8.4 - 10.2 [facility] Bilirubin.total [Mass/volume] in Serum or Plasma <0.7 MG/DL 0.2 - 1.3 [facility] Alkaline phosphatase [Enzymatic activity/volume] in Serum or Plasma 81 U/L 38 - 126 [facility] Aspartate aminotransferase [Enzymatic activity/volume] in Serum or Plasma 27 U/L 5 - 40 [facility] Alanine aminotransferase [Enzymatic activity/volume] in Seru m or Plasma 53 U/L 7 - 56 [facility] Anion gap 3 in Serum or Plasma 10.0 mmol/L 8.0 - 16.0 [facility] AGE 28 yrs [facility] NON-AA GFR >60 mL/min [facility] AFR AMER GFR >60 mL/min [facility] Male GFR In terprentation 20-49 yrs >60 mL/min Normal 50-59 yrs >56 mL/min Normal 60-69 yrs >49 mL/min Normal 70-79yrs >42 mL/min Normal 80 and above >35 mL/min Normal Female GFR Interpretation 20-39 yrs >60 mL/min Normal 40-49 yrs >58 mL/min Normal 50-59 yrs >51 mL/min Normal 60-69 yrs >45 mL/min Normal 70-79 yrs >39 mL/min Normal 80 and above >32 mL/min Normal ID Date Data Source [id number] 04/12/2019 09:17:00 PM [facility] Name Value Range Interpretation Code Description Data Shelbi rce(s) Supporting Document(s) Lactate [Moles/volume] in Serum or Plasma 1.7 MMOL/L 0.2 - 2.2 [facility] ID Date Data Source [id number] 04/12/2019 09:09:00 PM [facility] Name Value Range Interpretation Code Description Data Shelbi rce(s) Supporting Document(s) CBC W/AUTOMATED DIFF [facility] COMPLETE BLOOD COUNT Leukocytes [#/volume] in Blood by Automated count 8.5 10^3/uL 4.2 - [address] [facility] Erythrocytes [#/volume] in Blood by Automated count 4.87 10^6/uL 4. 20 - 5.40 [facility] Hemoglobin [Mass/volume] in Blood 14.3 g/dL 12.0 - 16.0 [facility] Hematocrit [Volume Fraction] of Blood by Automated count 44.9 % 3 7.0 - 47.0 [facility] Erythrocyte mean corpuscular volume [Entitic volume] by Auto mated count 92.2 fL 81.0 - 101 [facility] Erythrocyte mean corpuscular hemoglobin [Entitic mass] by Automated count 29.4 pg 27.0 - 34.0 [facility] Erythrocyte mean corpuscular hemoglobin concentration [Mass/volume] by Automated count 31.8 g/dL 31.0 - 36.0 [facility] Erythrocyte distribution width [Ratio] by Automated count 13.5 % 11.5 - 14.5 [facility] Platelets [#/volume] in Blood by Automated count 381 10^3/uL 150 - [address] [facility] Platelet mean volume [Entitic volume] in Blood by Automated count 9.5 fL 7.4 - 10.4 [facility] Neutrophils/100 leukocytes in Blood by Automated count 57.8 % 37. 0 - 80.0 [facility] Lymphocytes/100 leukocytes in Blood by Manual count 30.5 % 25.0 - 40.0 [facility] Monocytes/100 leukocytes in Blood by Automated count 7.4 % 3.0 - 8.0 [facility] Eosinophils/100 leukocytes in Blood by Automated count 3.3 % 0.0 - 7.0 [facility] Basophils/100 leukocytes in Blood by Automated count 0.6 % 0.0 - 2.5 [facility] %IG 0.4 % 0.0 - 0.0 [facility] %NRBC 0.0 % 0.0 - 0.0 [facility] Neutrophils [#/volume] in Blood by Automated count 4.90 10^3/uL 2.00 - 6.90 [facility] Lymphocytes [#/volume] in Blood by Automated count 2.59 10^3/uL 0.60 - 3.40 [facility] Monocytes [#/volume] in Blood by Automated count 0.63 10^3/uL 0.00 - 0.90 [facility] Eosinophils [#/volume] in Blood by Automated count 0.28 10^3/uL 0.00 - 0.70 [facility] Basophils [#/volume] in Blood by Automated count 0.05 10^3/uL 0.00 - 0.20 [facility] #IG 0.03 10^3/uL 0.00 - 0.10 [facility] ospital #NRBC 0.00 10^3/uL 0.00 - 0.00 [facility] MANUAL DIFF NOT INDICATED [facility] RBC MORPH NOT INDICATED [facility] ID Date Data Source [id number] 04/12/2019 08:54:00 PM [facility] Name Value Range Interpretation Code Description Data Shelbi rce(s) Supporting Document(s) URINALYSIS [facility]uyet URINALYSIS SOURCE Clean Catch [facility] COLOR yellow NORMAL: Yellow [facility] CLARITY clear NORMAL: Clear [facility] Specific gravity of Urine by Test strip 1.025 1.001 - 1.030 [facility] pH 5 5 - 9 [facility] Glucose [Mass/volume] in Urine by Test strip NORM NORMAL: Negat [facility] Bilirubin.total [Presence] in Urine by Test strip NEG NORMAL: Negative [facility] Ketones [Presence] in Urine by Test strip 5 NORMAL: Negative A [facility] Protein [Mass/volume] in Urine by Test strip 15 NORMAL: Negat [facility] Nitrite [Presence] in Urine by Test strip NEG NORMAL: Negative [facility] BLOOD NEG NORMAL: Negative [facility] Leukocyte esterase [Presence] in Urine by Test strip NEG JESICA L: Negative [facility] Urobilinogen [Mass/volume] in Urine by Test strip NOR less melvi n 1.0 mg/dL [facility] MICROSCOPIC Not Indicate [facility] ID Date Data Source [id number] 04/09/2019 02:08:00 PM EST [facility] Patient: NIMA DIAZ Observation Re port - Physicians/Mid Levels Hospital, [facility].VisitID: [id number] [place] [address] [phone], FRegistration Date/Time: 04/07/2019 17:33 Weight:90.7 kg (E). Height/Length:65 inches (E). 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 Medications:PROzac Oral (Capsule 40 mg) 1 capsule, daily, last dose 04/07/2019.TiZANidine HCl Oral (Tablet 4 mg) 4mg BID, 6mg bedtime, last dose 04/07/2019.BusPIRone HCl Oral (Tablet 10 mg) 1 tablet, 2x a day, last dose 04/07/2019.Diclofenac Sodium External, q6h, last dose 04/07/2019.Ferrous Sulfate Oral (Tablet 325 (65 Fe) mg) 1 tablet, 2x a day, last dose 04/07/2019.Folic Acid Oral 4mg, daily, last dose 04/07/2019.Lidocaine External (Patch 4 %) 1 patch, daily as needed, last dose 2 months ago.Magnesium Oxide Oral (Tablet 400 mg) 1 tablet, daily every AM, every PM, last dose 04/07/2019.MetFORMIN HCl Oral 850mg, 2x a day every AM, last dose 04/07/2019. Allergies:Acetazolamide.Beeswax.enoxaparin.(hives)Sulfa (Sulfonamide Antibiotics). SevereTape.(rash). FAMILY HISTORYNegative. No significant family medical history. (Electronically signed by Nunu Metcalf 04/09/2019 14:02) Weight:90.7 kg (E). Height/Length:65 inches (E). BMI:33.3 PAST HISTORYProblems:Polycystic ovarian syndrome [Chronic].Abdominal Pain [Chronic].Pseudotumor cerebri [Chronic].Depression [Chronic].Neurological Disease [Chronic].Intercranial hypertension [Chronic].Pituitary mass [Chronic].GI Disease [Chronic].Migraine Headache.Hydrocephalus. 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 Medications:PROzac Oral (Capsule 40 mg) 1 capsule, daily, last dose 04/07/2019.TiZANidine HCl Oral (Tablet 4 mg) 4mg BID, 6mg bedtime, last dose 04/07/2019.BusPIRone HCl Oral (Tablet 10 mg) 1 tablet, 2x a day, last dose 04/07/2019.Diclofenac Sodium External, q6h, last dose 04/07/2019.Ferrous Sulfate Oral (Tablet 325 (65 Fe) mg) 1 tablet, 2x a day, last dose 04/07/2019.Folic Acid Oral 4mg, daily, last dose 04/07/2019.Lidocaine External (Patch 4 %) 1 patch, daily as needed, last dose 2 months ago.Magnesium Oxide Oral (Tablet 400 mg) 1 tablet, daily every AM, every PM, last dose 04/07/2019.MetFORMIN HCl Oral 850mg, 2x a day every AM, last dose 04/07/2019. Allergies:Acetazolamide.Beeswax.enoxaparin.(hives)Sulfa (Sulfonamide Antibiotics). SevereTape.(rash). (Electronically signed by Blas Morris PReuben 04/08/2019 00:36) Name Value Range Interpretation Code Description Data Shelbi rce(s) Supporting Document(s) ID Date Data Source [id number] 04/08/2019 03:04:01 PM [facility] Name Value Range Interpretation Code Description Data [facility] rce(s) Supporting Document(s) [facility] JAQEBj8oBdEFFbIw34/ALXnpVPPew9LnNUrpZVe9VCvfAPJlE9SqZEJ0vF4pZEI4EWgQNhBxItStSiI6 [facility] [file] AgICAgICAgICAgICAgICAgICAgICAgICAgICAgICAg ICAgICAgICAgICAgICAgICAgICAgICAgICAgICAgICAgICAgICAgICAgICAgICAgICANCiAgICAgICAg ICAgICAgICAgICAgICAgICAgICAgICAgICAgICAgICAgICAgICAgICAgICAgICAgICAgICAgICAgICAg ICAgICAgICAgICAgICAgICAgICAgICAgICAgICAgIC ANCiAgICAgICAgICAgICAgICAgICAgICAgICAgICAgICAgICAgICAgICAgICAgICAgICAgICAgICAgIC AgICAgICAgICAgICAgICAgICAgICAgICAgICAgICAgICAgICAgICAgICANCiAgICAgICAgICAgICAgIC AgICAgICAgICAgICAgICAgICAgICAgICAgICAgICAg ICAgICAgICAgICAgICAgICAgICAgICAgICAgICAgICAgICAgICAgICAgICAgICAgICAgICANCiAgICAg ICAgICAgICAgICAgICAgICAgICAgICAgICAgICAgICAgICAgICAgICAgICAgICAgICAgICAgICAgICAg ICAgICAgICAgICAgICAgICAgICAgICAgICAgICAgIC AgICANCiAgICAgICAgICAgICAgICAgICAgICAgICAgICAgICAgICAgICAgICAgICAgICAgICAgICAgIC AgICAgICAgICAgICAgICAgICAgICAgICAgICAgICAgICAgICAgICAgICAgICANCiAgICAgICAgICAgIC AgICAgICAgICAgICAgICAgICAgICAgICAgICAgICAg ICAgICAgICAgICAgICAgICAgICAgICAgICAgICAgICAgICAgICAgICAgICAgICAgICAgICAgICANCiAg ICAgICAgICAgICAgICAgICAgICAgICAgICAgICAgICAgICAgICAgICAgICAgICAgICAgICAgICAgICAg ICAgICAgICAgICAgICAgICAgICAgICAgICAgICAgIC AgICAgICANCiAgICAgICAgICAgICAgICAgICAgICAgICAgICAgICAgICAgICAgICAgICAgICAgICAgIC AgICAgICAgICAgICAgICAgICAgICAgICAgICAgICAgICAgICAgICAgICAgICAgICANCiAgICAgICAgIC AgICAgICAgICAgICAgICAgICAgICAgICAgICAgICAg ICAgICAgICAgICAgICAgICAgICAgICAgICAgICAgICAgICAgICAgICAgICAgICAgICAgICAgICAgICAN Cjw/aMMhD0kxjNDteuX2R8nsXi0ZEc6RPW9wi2XqAYBcZErgurTqLfqXBgUtBYPaCzqIBpr7SFaqJK2L qFFnE4OsQ6WpWYwnSE1YYAMcWNGndUOcXZEnHCRlLt K2DEAgKVguNM9CuXVuGQdsHRImUGWyWpXlAMNxSHHcTCJbOFHpTRGSARDkNGZvKsMkCRkzQP6Zr1GvcJ A1DQo+Ux3MTK8ij5IhNDpqMGSbHP5yed9WFRzZWxJeI0SzxdX3OSB3QISgXt1IVWPoRGJddBZmNeCfCN EIPwVzX2DneK36GYCPDu6+RFajasNvMvfKQaH5JSHn e3YoSWb0LP6NOHUmGSq7hFIfJ48lp9GduJQeJjylQ0JlbzuvDAcjJ266mTXhxHKqffgpBL7dFQDjNq83 LkBbFwDqTUT5GcRhOJ2pUXhrVS7VXWC9CBkdSJPeGTApX8lFDpVpTPPrFJAjuHcdTX8AIjYqP3VuvsSb dCAzNSAwIFINCj4+TRqidiOpEueTPjC8YSWsm4NnMU t3HK4FSTXrEOjlQU9DLUCsjG4mXZxgKR9OXkMpOkAnGMHPLqMmS63lnQUjMMe3F4SoQeWqTGCtBmdmEC MgPDwvTmFtZXMgWyBdDQogID4+ID4+OUdfKX3YGIlixoSpNSTvDv4TBPTpSKOtFU1eLDWsTJXaX4U1fA gvYYYXElTfS7uvmeuyGF7cXCGnT709wEnqjyKxUIM9 NKYoSb7EMYSmWUY9WSCdgYMtOlXwGYFANNeaSB8FbZKaXOZ9aI6hILfgWJNuPOPeH0hBGvRopTcrLK44 bGwgbnVsbCBdDQo+Cs0KBZ4bt1FqYYj7ixWqQVqqBFU8HTpmSSSdJPRcKEPyOVA7IAU3WKPVAkPoRVMx OJGlFNloANEcMCIsgq4ROROcKLU0Iyn5UuXgUYNyEY ScBQtdJPWsXLB6BGXwFLUtGFSwCC4ECmWjZQZwUMRhYYaiDSPqCTVfir8PCPTbXGHrUtB8JhCgSYImZP ReHQgoASEvDJSpYrA4QKXuBVPhHE0SGoTfTEEnVQH2OVVbYWJvLDZdws1XQIFxOPStQsNbXlEpUGGfGB HfAJsuRZLuEEZ8XGM7PEBtIQDtVR8GIxMbZHRuXXh4 XFAeZPZxXNEfgf7POYRvXIYrDBwzYIFsANUuPMMxSTawSKUmQNZuAPZ3GOKnVBNlMS9BWdWzTSHaUPT7 AHOcDOVmSIPmyi5UHXSqGYDbTYW8WqNbUBUiKHGxNQxbJBUkYHW0HKOmPZLjIJQaJK2URvSnIJPnFWEo SKwnOUTnTCVtsz2MTZQgXXYdKPLzWqTtBAIsFIRgSQ dcLRQlDZK3ItZtGQVaHOAzZJ7ZXiHpHDLeKPY3NiVwXSIyIPJagm4HCYFgEUGhAyt5UJJtEDUtRQJzOU kcHJYzLAD8BcHsMYUbKRJdTL6XFkDxXYGpRCe9GRvcGISpIURgou1IINDpDULoIYP7NSGyEVRkISNfTJ qjAXLmJCA9VHw2ZFShDWZfIA0IPqOpJPGvKoa7TERa IEQuLRRcpg6IYMTnMLIwNAYgXaIjKXNbUWUlOMxcJHAyZEQoHnZhMYCjRGRrVF6PKhDgSOIjXsCiPCms FNJlYOLntt1EHLKpYVRwVIAfNbIeAKEiKDZuGRrlQYStNVFfZSVfPRSwJLSwOM8XBzPtLZDuUlZ1MCyi YWPoUANnzx1NCWAaAWKwHGj2XvYaEHObLKRwTMbxOA ScOYAbZdRsCSXyQPLzSM3WTcNzHFNnKKBgXSQpIVUeBGYhzl4HZCXhAEG1PYO5WhNpSIXkOEUwSJenDS ArHVW1YcD9PJChEODqGT2GAjYzKSMrZEE6WPDuNMHeUIQriz6LsMEvrPuiib0FECzESo5CnRisVUW3BN qnNe4olAIfMeToTSUHHl3CnlMuQZLuBUVJDKwzOBZa SFI3Y6FtJvm5MUWfUaLyEfAkFxdiMkAnGqL3YelyOWY4NdR2ZRdvCdPnPNe5HQPaLlSwNeE3NkK7YnD2 SVb6RZSsAYl+YD6eDUz+Ki8Ue9EypaF3bsXbMFm6IcFoIJ0PZYMKJ6VUBk== ID Date Data Source [id number] 04/08/2019 08:09:42 AM [facility] Name Value Range Interpretation Code Description Data Shelbi rce(s) Supporting Document(s) Color of Urine [facility] Clarity of Urine [facility] Specific gravity of Urine by Refractometry automated 1.042 1.003 -1.030 H [facility] pH of Urine by Automated test strip 6.0 5.0-8.0 [facility] Protein [Mass/volume] in Urine by Automated test strip Neg [facility] Glucose [Mass/volume] in Urine by Automated test strip Neg [facility] Ketones [Mass/volume] in Urine by Automated test strip 5 mg/dL Neg [facility] Bilirubin.total [Presence] in Urine by Automated test strip Negative [facility] Hemoglobin [Presence] in Urine by Automated test strip Neg [facility] Leukocyte esterase [Presence] in Urine by Automated test strip Negative [facility] Nitrite [Presence] in Urine by Automated test strip Negati [facility] Leukocytes [#/area] in Urine sediment by Automated count 0 /HPF 0 -5 [facility] Erythrocytes [#/area] in Urine sediment by Automated count 0-3 [facility] Bacteria [#/area] in Urine sediment by Automated count Non e A [facility] Epithelial cells.squamous [#/area] in Urine sediment by Auto mated count 2 /HPF None [facility] ID Date Data Source [id number] 04/08/2019 09:35:24 AM [facility] Service Cmnt XXX-Imp : Microorganism XXX Cult : Polymerase chain reaction is NEGATIVE for Influenza A H1, H3 and 2009 H1 viruses, Influenza B virus, Respiratory syncytial virus, Human metapneumovirus, Parainfluenza virus 1, 2, 3 and 4, Adenovirus, Rhinovirus/Enterovirus, Coronavirus HKU1, NL63, OC43, and 229E, Bordetella pertussis, Mycoplasma pneumoniae and Chlamydia pneumoniae. Name Value Range Interpretation Code Description Data Shelbi rce(s) Supporting Document(s) ID Date Data Source [id number] 04/08/2019 06:48:01 AM [facility] CT ABDOMEN PELVIS WITH CONTRAST [id number] AL RESULTInterpreted by:Kamila Renner MDPROCEDURE INFORMATION: Exam: CT Abdomen And Pelvis With Contrast Exam date and time: 04/08/2019 5:32 AM Age: 28 years old Clinical indication: Other: Evaluate for left vp product marketing shunt abnormality. Severe URIAS, luq abd pain, blurry vision left eye TECHNIQUE: Imaging protocol: Computed tomography of the abdomen and pelvis with intravenous contrast. Radiation optimization: All CT scans at this facility use at least one of these dose optimization techniques: automated exposure control; mA and/or kV adjustment per patient size (includes targeted exams where dose is matched to clinical indication); or iterative reconstruction. Contrast material: OMNI 300; Contrast volume: 100 ml; Contrast route: IV; COMPARISON: CT ABD & PELVIS W/ IV ONLY 07/04/2018 9:18 AM FINDINGS: Tubes, catheters and devices: Partially seen bilateral MANUAL EQUIPMENT MECHANIC shunt tubing components are present. Liver: Fatty liver. Gallbladder and bile ducts: Prior cholecystectomy. Pancreas: Normal. No ductal dilation. Spleen: Normal. No splenomegaly. Adrenals: Normal. No mass. Kidneys and ureters: Normal. No hydronephrosis. Stomach and bowel: Unremarkable. No obstruction. No mucosal thickening. Appendix: The appendix is not identified. No pericecal inflammation. Intraperitoneal space: There is a small amount of free fluid in the pelvis. This is similar to the prior examination. Vasculature: Unremarkable. No abdominal aortic aneurysm. Lymph nodes: Unremarkable. No enlarged lymph nodes. Bladder: Unremarkable as visualized. Reproductive: The tip of the left-sided shunt tubing is present in the left hemipelvis. The tip of the right-sided shunt tubing is present in the right hemipelvis. Bones/joints: Unremarkable. No acute fracture. Soft tissues: Unremarkable. IMPRESSION: 1. Fatty liver. 2. Small amount of free fluid in the pelvis, similar to the prior examination. This could be related to the presence of [employer] shunt tubing, and physiologic. Clinical correlation recommended. THIS DOCUMENT HAS BEEN ELECTRONICALLY SIGNED BY KAMILA RENNER MDThis document has been electronically signed by Kamila Renner MD on 04/08/2019 6:47 AM Name Value Range Interpretation Code Description Data Shelbi rce(s) Supporting Document(s) ID Date Data Source [id number] 04/08/2019 06:37:55 AM [facility] XR SKULL LIMITED [id number] RESULTInterp reted by:CAROLIN De La TorreROCARNOL INFORMATION: Exam: XR Skull, Less Than 4 Views Exam date and time: 04/08/2019 4:09 AM Age: 28 years old Clinical indication: Other: Shunt series TECHNIQUE: Imaging protocol: XR of the skull, less than 4 views. COMPARISON: CR XR SKULL LIMITED [id number] 02/28/2019 11:42 PM FINDINGS: Tubes, catheters and devices: There are bilateral [employer] shunt tubing components that are partially seen, and not significantly changed. Sinuses: Well aerated. No opacification. Bones/joints: No fracture. Soft tissues: Unremarkable. IMPRESSION: No acute disease, or evidence of significant changes. THIS DOCUMENT HAS BEEN ELECTRONICALLY SIGNED BY KAMILA RENNER MDThis document has been electronically signed by Kamila Renner MD on 04/08/2019 6:37 AM Name Value Range Interpretation Code Description Data Shelbi rce(s) Supporting Document(s) ID Date Data Source [id number] 04/08/2019 06:31:20 AM [facility] XR CHEST FRONTAL AND LATERAL [id number] RESULTInterpreted by:CAROLIN De La TorreROCARNOL INFORMATION: Exam: XR Chest, 2 Views Exam date and time: 04/08/2019 4:09 AM Age: 28 years old Clinical indication: Other: Shunt series TECHNIQUE: Imaging protocol: XR of the chest Views: 2 views. COMPARISON: CR XR CHEST FRONTAL AND LATERAL [id number] 02/28/2019 11:43 PM FINDINGS: Tubes, catheters and devices: Partially seen bilateral shunt tubing present. This has not significantly changed. Lungs: Pulmonary hypoinflation. No acute infiltrate. Pleural space: Unremarkable. No pleural effusion. No pneumothorax. Heart/M ediastinum: Unremarkable. No cardiomegaly. Bones/joints: Unremarkable. IMPRESSION: No acute disease. THIS DOCUMENT HAS BEEN ELECTRONICALLY SIGNED BY KAMILA RENNER MDThis document has been electronically signed by Kamila Renner MD on 04/08/2019 6:31 AM Name Value Range Interpretation Code Description Data Shelbi rce(s) Supporting Document(s) ID Date Data Source [id number] 04/08/2019 06:30:15 AM [facility] XR ABDOMEN AP SUPINE AND LATERAL VIEW [id number] 019FINAL RESULTInterpreted by:Kamila Renner MDPROCEDURE INFORMATION: Exam: XR Abdomen, 2 Views Exam date and time: 04/08/2019 4:09 AM Age: 28 years old Clinical indication: Other: Shunt series TECHNIQUE: Imaging protocol: XR of the abdomen. Frontal supine and upright views of the abdomen. Views: 2 Views. COMPARISON: CR XR ABDOMEN AP SUPINE AND LATERAL VIEW [id number] 02/28/2019 11:44 PM FINDINGS: Tubes, catheters and devices: Partially seen shunt tubing present. Gastrointestinal tract: Normal. No bowel dilation. Intraperitoneal space: There are right upper quadrant surgical clips. Organs: Contrast is present in the kidneys, ureters, and bladder from a recent CT scan. Bones/joints: Unremarkable for age. IMPRESSION: No acute disease. THIS DOCUMENT HAS BEEN ELECTRONICALLY SIGNED BY KAMILA RENNER MDThis document has been electronically signed by Kamila Renner MD on 04/08/2019 6:30 AM Name Value Range Interpretation Code Description Data Shelbi rce(s) Supporting Document(s) ID Date Data Source [id number] 04/08/2019 04:40:47 AM [facility] Name Value Range Interpretation Code Description Data Shelbi rce(s) Supporting Document(s) Choriogonadotropin.beta subunit free [Units/volume] in Serum or Plasm a <5 [facility] (NOTE)Levels between 5 and 25 [IU]/L may indicate earlypregnancy and should be repeated after 48 hours. ID Date Data Source [id number] 04/08/2019 04:51:30 AM [facility] Name Value Range Interpretation Code Description Data Shelbi rce(s) Supporting Document(s) Leukocytes [#/volume] in Blood by Automated count 11.0 10*3/uL 4-10 H [facility] Erythrocytes [#/volume] in Blood by Automated count 4.94 10*6/uL 4.1- 5.3 [facility] Hemoglobin [Mass/volume] in Blood 14.8 g/dL 11.5-15.5 [facility] Hematocrit [Volume Fraction] of Blood by Automated count 45.0 % 3 6-45 [facility] Erythrocyte mean corpuscular volume [Entitic volume] by Auto mated count 91.0 fL 80-96 [facility] Erythrocyte mean corpuscular hemoglobin [Entitic mass] by Automated count 29.9 pg 27-33 [facility] Erythrocyte mean corpuscular hemoglobin concentration [Mass/volume] by Automated count 32.9 g/dL 32.0-36.0 [facility] Erythrocyte distribution width [Ratio] by Automated count 14.7 % 11.5-14.5 H [facility] Platelets [#/volume] in Blood by Automated count 410 10*3/uL 150-400 H [facility] Differential cell count method - Blood [facility] Neutrophils/100 leukocytes in Blood by Automated count 92 % [facility] Lymphocytes/100 leukocytes in Blood by Automated count 7 % [facility] Monocytes/100 leukocytes in Blood by Automated count 1 % [facility] Eosinophils/100 leukocytes in Blood by Automated count 0 % [facility] Basophils/100 leukocytes in Blood by Automated count 0 % [facility] Neutrophils [#/volume] in Blood by Automated count 10.01 10*3/uL 1.8- 7.0 H [facility] Lymphocytes [#/volume] in Blood by Automated count 0.76 10*3/uL 1.2-4 .0 L [facility] Monocytes [#/volume] in Blood by Automated count 0.14 10*3/uL 0-0.8 [facility] Eosinophils [#/volume] in Blood by Automated count 0.00 10*3/uL 0-0.5 [facility] Basophils [#/volume] in Blood by Automated count 0.05 10*3/uL 0-0.2 [facility] Nucleated erythrocytes/100 leukocytes [Ratio] in Blood by Automated count 0 /100{WBCs} 0-0 [facility] ID Date Data Source [id number] 04/08/2019 04:59:28 AM EST [facility] Name Value Range Interpretation Code Description Data Shelbi rce(s) Supporting Document(s) Albumin [Mass/volume] in Serum or Plasma by Bromocresol green (BCG) dye binding method 4.9 g/dL 3.5-5.2 [facility] Bilirubin.total [Mass/volume] in Serum or Plasma 0.3 mg/dL <1.2 [facility] Calcium [Mass/volume] in Serum or Plasma 9.6 mg/dL 8.6-10.0 [facility] Chloride [Moles/volume] in Serum or Plasma 100 mmol/L 98-107 [facility] Creatinine [Mass/volume] in Serum or Plasma 0.76 mg/dL 0.50-0.90 [facility] Glucose [Mass/volume] in Serum or Plasma 148 mg/dL 70-140 H [facility] Alkaline phosphatase [Enzymatic activity/volume] in Serum or Plasma 88 U/L 35-104 [facility] Potassium [Moles/volume] in Serum or Plasma 4.4 mmol/L 3.4-5.1 [facility] Protein [Mass/volume] in Serum or Plasma 8.1 g/dL 6.4-8.3 [facility] Sodium [Moles/volume] in Serum or Plasma 135 mmol/L 136-145 L [facility] Aspartate aminotransferase [Enzymatic activity/volume] in Serum or Plasma 39 U/L <32 H [facility] Hemolyzed Urea nitrogen [Mass/volume] in Serum or Plasma 9 mg/dL 6-20 [facility] Osmolality of Serum or Plasma by calculation 281 mosm/kg 275-300 [facility] Creatinine/Urea nitrogen [Mass Ratio] in Serum or Plasma 12 [facility] Bicarbonate [Moles/volume] in Serum 22 mmol/L 22-29 [facility] Alanine aminotransferase [Enzymatic activity/volume] in Seru m or Plasma 57 U/L <33 H [facility] Anion gap 3 in Serum or Plasma 13 mmol/L 8-15 [facility] Albumin/Globulin [Mass Ratio] in Serum or Plasma 1.5 [facility] Glomerular filtration rate/1.73 sq M pre dicted among non-blacks [Volume Rate/Area] in Serum or Plasma by Creatinine-based formula (MDRD) >6 0 [facility] Glomerular filtration rate/1.73 sq M pre dicted among blacks [Volume Rate/Area] in Serum or Plasma by Creatinine-based formula (MDRD) >60 [facility] ID Date Data Source [id number] 04/08/2019 05:20:35 AM EST [facility] Name Value Range Interpretation Code Description Data Shelbi rce(s) Supporting Document(s) Erythrocyte sedimentation rate 28 mm/hr <20 H [facility] ID Date Data Source [id number] 04/08/2019 05:25:22 AM [facility] Name Value Range Interpretation Code Description Data Shelbi rce(s) Supporting Document(s) C reactive protein [Mass/volume] in Serum or Plasma 4.7 mg/L <8.0 [facility] ID Date Data Source [id number] 04/08/2019 06:42:01 AM [facility] Name Value Range Interpretation Code Description Data Shelbi rce(s) Supporting Document(s) Prothrombin time (PT) 12.8 s 12.5-14.9 [facility] INR in Platelet poor plasma by Coagulation assay 0.93 [facility] ID Date Data Source 04/08/2019 06:42:01 AM [facility] Name Value Range Interpretation Code Description Data Shelbi rce(s) Supporting Document(s) aPTT in Platelet poor plasma by Coagulation assay 27.8 s 24.0-34. 0 [facility] ID Date Data Source [id number] 04/08/2019 05:17:38 AM [facility] Name Value Range Interpretation Code Description Data Shelbi rce(s) Supporting Document(s) ABO and Rh group [Type] in Blood [facility] Blood group antibody screen [Presence] in Serum or Plasma [facility] Blood bank comment [facility] ID Date Data Source [id number] 04/07/2019 07:50:00 PM EST [facility] DATE OF EXAMINATION: 04/07/2019 18:15 EST BRAIN W/O CONTRAST INDICATION: Headache This CT exam was performed using the following dose reduction techniques:Automated exposure control, adjustment of mA and/or kV according to thepatient's size, and use of iterative reconstruction technique. COMPARISON: 02/28/2019Bilateral shunt catheter is again visualized each entering from the frontalregions. The tips of the shunt catheters are in the frontal horns bilaterallythe tips in the midline There is no hydrocephalus. No intracranial bleed.Extracranial soft tissue surrounding the shunt catheter is unchanged co mpared tothe previous study. There are bubbles in this region on the left similar to theprevious exam.There is no mass effect or shift. No intracranial bleeds. No intra orextra-axial collections. The visualized paranasal sinuses are well aerated. IMPRESSION: There are bilateral shunt catheters. No hydrocephalus and no significant changecompared to the previous examination. Electronically signed in [id number] by: Emili Arndt M.D. 04/07/2019 19:44 EST Name Value Range Interpretation Code Description Data [facility] rce(s) Supporting Document(s) ID Date Data Source [id number] 04/07/2019 08:53:00 PM EST [facility] TSYSORDER [id number] Name Value Range Interpretation Code Description Data [facility] rce(s) Supporting Document(s) C REACTIVE PROTEIN 4.0 mg/L 0.0-3.0 [facility] Date Data Source [id number] 04/07/2019 07:40:00 PM EST [facility] TSYSORDER [id number] Name Value Range Interpretation Code Description Data [facility]) Supporting Document(s) GLUCOSE 92 mg/dL 74-106 [facility] BLOOD UREA NITROGEN 13 mg/dL 7-18 [facility] ital CREATININE 0.7 mg/dL 0.6-1.0 [facility] SODIUM 139 mmol/L 136-145 [facility] POTASSIUM 4.0 mmol/L 3.5-5.1 [facility] CHLORIDE 104 mmol/L 98-107 [facility] CO2 24 mmol/L 21-32 [facility] CALCIUM 9.1 mg/dL 8.5-10.1 [facility] ANION GAP 11.0 mmol/L 5-12 [facility] GLOMERULAR FILTRATION RATE >90 mL/min [facility] GFR IS CALCULATED IN mL/min/1.73m2 JESICA L FUNCTION: >90MILDLY DECREASED: 60-89MILDY TO MODERATELY DECREASED: 45-59 MODERATELY TO SEVERELY DECREASED: 30-44SEVERELY DECREASED: 15-29RENAL FAILURE: <15 AST 21 U/L 15-37 [facility] ALT 57 U/L 12-78 [facility] ALKALINE PHOSPHATASE 79 U/L 46-116 [facility] pital TOTAL BILIRUBIN 0.2 mg/dL 0.2-1.0 [facility] TOTAL PROTEIN 7.6 g/dl 6.4-8.2 [facility] ALBUMIN 4.0 gm/dL 3.4-5.0 [facility] ID Date Data Source [id number] 04/07/2019 07:12:00 PM EST [facility] TSYSORDER [id number] Name Value Range Interpretation Code Description Data Shelbi rce(s) Supporting Document(s) WHITE BLOOD COUNT 8.7 K/mm3 4.0-10.0 [facility] RED [facility]LO[facility] 4.51 M/mm3 4.00-5.50 [facility] HEMOGLOBIN 13.4 gm/dL 12.0-16.0 [facility] HEMATOCRIT 40.8 % 36.0-48.8 [facility] MEAN CELL VOLUME 90.5 fl 80-96 [facility] MEAN CORPUSCULAR HEMOGLOBIN 29.7 pg 27.0-31.0 [facility] MEAN CORPUSCULAR HGB CONC 32.8 g/dl 32.0-36.0 [facility] RED CELL DISTRIBUTION WIDTH 13.4 % 10.0-14.5 [facility] PLATELET COUNT 352 K/mm3 172-450 [facility] MEAN PLATELET VOLUME 9.4 fl 9.0-13.0 [facility] GRAN % 60.5 % 50-80.0 [facility] IG% 0.3 % 0.0-0.[address] [facility] LYMPH % 29.0 % 25.0-50.0 [facility] MONO % 7.1 % 2.0-10.0 [facility] EOS % 2.6 % 0-5.0 [facility] BASO % 0.5 % 0.0-2.0 [facility] GRAN # 5.2 K/mm3 2.0-8.00 [facility] IG# 0.0 K/mm3 0.0-0.2 [facility] LYMPH # 2.5 K/mm3 1.0-5.0 [facility] MONO # 0.6 K/mm3 0.10-1.20 [facility] EOS # 0.2 K/mm3 0.0-0.5 [facility] BASO # 0.0 K/mm3 0.0-0.2 [facility] ID Date Data Source [id number] 03/13/2019 05:11:28 PM [facility] Name Value Range Interpretation Code Description Data Shelbi rc(s) Supporting Document(s) ED Provider Note [facility] ZKVGAd2gWwFLJrXc15/BNWyfCFLfk9LjVImdGUf9SExhAIHoT3ZeBKR5vC1lRND8QPaFAuPqGmRpKPV5 [facility] [file] AgICAgICAgICAgICAgICAgICAgICAgICAgICAgICAg ICAgICAgICAgICAgICAgICAgICAgICANCiAgICAgICAgICAgICAgICAgICAgICAgICAgICAgICAgICAg ICAgICAgICAgICAgICAgICAgICAgICAgICAgICAgICAgICAgICAgICAgICAgICAgICAgICAgICAgICAg ICAgICANCiAgICAgICAgICAgICAgICAgICAgICAgIC AgICAgICAgICAgICAgICAgICAgICAgICAgICAgICAgICAgICAgICAgICAgICAgICAgICAgICAgICAgIC AgICAgICAgICAgICAgICANCiAgICAgICAgICAgICAgICAgICAgICAgICAgICAgICAgICAgICAgICAgIC AgICAgICAgICAgICAgICAgICAgICAgICAgICAgICAg ICAgICAgICAgICAgICAgICAgICAgICAgICANCiAgICAgICAgICAgICAgICAgICAgICAgICAgICAgICAg ICAgICAgICAgICAgICAgICAgICAgICAgICAgICAgICAgICAgICAgICAgICAgICAgICAgICAgICAgICAg ICAgICAgICANCiAgICAgICAgICAgICAgICAgICAgIC AgICAgICAgICAgICAgICAgICAgICAgICAgICAgICAgICAgICAgICAgICAgICAgICAgICAgICAgICAgIC AgICAgICAgICAgICAgICAgICANCiAgICAgICAgICAgICAgICAgICAgICAgICAgICAgICAgICAgICAgIC AgICAgICAgICAgICAgICAgICAgICAgICAgICAgICAg ICAgICAgICAgICAgICAgICAgICAgICAgICAgICANCiAgICAgICAgICAgICAgICAgICAgICAgICAgICAg ICAgICAgICAgICAgICAgICAgICAgICAgICAgICAgICAgICAgICAgICAgICAgICAgICAgICAgICAgICAg ICAgICAgICAgICANCiAgICAgICAgICAgICAgICAgIC AgICAgICAgICAgICAgICAgICAgICAgICAgICAgICAgICAgICAgICAgICAgICAgICAgICAgICAgICAgIC AgICAgICAgICAgICAgICAgICAgICANCiAgICAgICAgICAgICAgICAgICAgICAgICAgICAgICAgICAgIC AgICAgICAgICAgICAgICAgICAgICAgICAgICAgICAg ICAgICAgICAgICAgICAgICAgICAgICAgICAgICAgICANCjw/wVXxO1lqsWOetfL8S2diYe3ULx8CLB1w h3SfKJXuXIxpczSbAakIMnYuBKBkRfcEGnu1YZxlAF9AiLNrS1VjI2LaTNkqUJ2SSLQoKJXkyCPjQKWa HQPnTjX3BKMoZXrtWU3VsJJwWGiiLTLtHQQtHdGbPC AdTWFoSOWUUNYbZCOwZpIqEJXtZVQpCXZgPQPZAQQ7JRCwViCjQHTcDUGfMkDtOCXDFC5UXhPcX9QvkG 56DNwALt2+LZlzpjZwKyeIHpJnSSWfk3RvABa1VB9BWSQkWpxde9YiHKQeZQZAISeeMY1SOPI5YHM7OO JtIs5BIAOvY058cxJtXv7PSu6VHrGwMC9los2TZCKs FKHmFetMOov1PJwoJL2WlBJsZThANZPLji71kDMqbqWCy6PxrlDamBULmQcgcAZNEFY8dpF4jI1xKKHI OpKbiZSpYm2sQU1lJBF5JBQaIbN0SWRIDJ8VFFJaZEJakUTrFZNcAKPAUJ3PVHrwTUV3ZlBcfhJndBTk IWcuTP3NLNZotfWfQNSbUCOZEFggMF4RdYZbiNB1KW JvQEFEFtNqR2oia5NxFYZwDUOWLClcPQ7Cy9SllTXbKD5ZMGSoFnY0kKF2QYHcMXZPMr2+DQplbmRvYm dQUfM1BGSse1PnPZt1ZD8VUVFgKRz2wUHxSgWew8oicaAlRG7PJLMtJWNluHBeEGkpBEXDXG2SZLcsLT Q0FRZqvtQucRLkDEyjFZ5XDGHuerSxJHLzMNUXEXx+ Ah1JQO1he8GyFRc1EHHqFX9ujx3TRHbSDjDuA3UhpGqbUNMGJHFvr6PxCRZpJH6kyDBxQFS3IXVdjPh7 NVCdJ7YcIHB7p44iQCWPUIE8OIZjTqT5XzEbJBguDGV4UhDvCX7qVUfiHT7LUMZ0SCxoTdVmHTBxC0oO UmJqJHdjKA59bNznYF4KNYCsWHKeAC40KEHzXZRtDa 0NXLYwQKSwgvH6VkOpICRHYfJxR98yuBRuDMViQNCSJHb+Ho8EEY8fq5QyXWp1OgOsIK2sym6MVVeGTz NfI3ExyPzsXPOYCITwa7ZnAZQzME0ueHFeRBF4DX4lL8oipIJkPAIaUZZqFZEjxYOuITFWMXN4URHiGq S6WhUjTCbhYGE0CLEmKF9dZWybCZ4BFBU9HPypRUMt XLZWHK3YTUgeUID4ACAsxdWkzWEhJOfhXL4PKCFmgcDjMJYyMOMJGIczEP8JymR8EZG9ZJPvJe7YLIBg QlG6iXD5GxUnYNDPWb0+BIgrpuLbKehQTuW3UWXrn2ZnHFx2PG6RXZNyOSg5lRGjLBLqTd79EYZxZqgo GUVyqMXkZQUIUSWrwFToraorTb4dCWOaPDJeOfhmQt NoZUGeRLopKWZYFCeGNjAtW3Boy4OsAoYzSSToYKKyK8dGFwViPIi3RW49gGwyQH2JQNPyCRDoDU14KM HkFSEwMy4GJUTqOURddqN2AaSfWQRVIxCzW07btRUnWCkhWDUPCLn+Xg5EQX8zp7OeYUd1XARyXJ7tfd 5BNCuROkBqL1MlcGtxBRBAJY0qiJRtOFA2FQFmxwym szCsTORUVRxcDHUvPWABCAL2WJSgWwK9FcBqTMuiYZY7WkudWH2xNPexUX8HKDL5DKmvSyEnVSSASU6B DOemQBH9VNjpesTsyPOpUXqiPA2XUZQkmhFgTYNaAMTNPJyhDH5GmoP3ZFW8CDHvDd2NFDHeYwY8cLK9 OSAwIFINCj4+RFzaavUiImmHAdO3UDLbg9ShJVy5GH 5GYNFjJIr4sQUoEHYmTSVxWRmyZR6ywZXiZPB1CKKxsdXwKAPeB8zou7PfmH5rBZOJRFC6KGEdRxQ4Pc ZvYDbjOPu7ZSEpGT3yXKgdJM9ZKVW6SZkcPdQtIXIDFI4VXOfzFDXpUKnmphOeaPHmXFcmOB7CBBJjlq MfYKWwDHNQAOctYL7QddU8TDQ0MRLyVa9CTg9DTpQu JJ8fyl7NQCEaRO8jru8KLIiEUnYnT9I4xQPaZ6Ossv95ZD5BnHX3yRNzHJ2DnX0gQD5Tn0AsDIVjZnEp QZBjGJJgJEAfJBZqHtTiBY7BRRJuOtAgqACvCPGcJbQ5NKHxGCJhKKawLS4QAPUhZGGwpJVoAAReBOvv NRW7FHY0MYYmxPptII8jKIdyNF8AHOr5B7NzO1zsXS 3zBp3zCTo+Up3RMS8tz7QrJGz6HJEsJS8wjh4HORbBGcDgC9L8uLVqD6D2VNgcAt2KTGVvARLoHXCaQX NRMMyrNA7VSP4prgL9OI9VlRJuDDGuMYLecASoAZy4W25fwFHaXTkrAO0XMMW+Tiffany+Gj7ZZPFhSHToIA GdYsQmSUBXPmYqD2NxV2AWt5OxM7UxBL21wUnugaFf OBzzYA4JZN9eRALsEPHYRC0PjLAqjK4quzV8FcRnKMHNDvOtQ27efORtEFXzEWApVAZnZc6QRADrB2Uw wyNajDtsryDaAXOkZKPRYP3TEAxiouNkkAVnpAxnKN27sWntQH4JFt1KKoWoAS0zzy1KkCXuYb6FBOD7 VE1KBYMgVZBeTFBhUXS4NHOaCgRsFGkfXFWpKEJaVV E4ZVGaJTGxWU7UBnNdSBVvNZj0ALRnFLGdFILhjo2IHHNrVSA8KWS3OtAaEQGeAUOuIHbtICAwWDFiEB C8HDYhMXZkLY9KPjMeCOXoBGV6LbRsZXXpQQNmyj0TBBRjSTBtUKO2WCKkJFYdKCAxYXoqBXVuNRM4KM A8PZQtZWHyOM9PUoDmJUUzPNW6AJgoEVBqJTYevq4Y IAPpLTHiAtR8QvKuZGQhRKQcSRusHKDmTXVlVRS2UXZwMYMbNK3CWfZrVJRkPHAxDYKvSXUwTPSpsq1M NUXrYFSqSLSuAkLnLPYjBHLxSBluNHVgSVA9EcBaWFHxXVGjTP5YEzUuEWIfZVw0VLOkJREbGAGqqz1H SKPgAKVuSID1UPBlYQTbEMKePFogXCHqSREkFyV7YP FcUNJzTD7QNsTrUUGpPrJ7BrLxUWYtLWFbgn4SLMRnUEYxAvkeVSRkKVSpJXXyDTcjBRXxTJQ7ZEZ5FO ZqTRNaGU4XTxOkHSHyJrK0CnArLDNiJLDbxn0JOPZdVNHoPuj1GNWsYMJvSYDrKLllYEMjVYA9RCK1JT JlJUDaJW7YYhTrKWZpTar3MIZuRCKjJTYaxy8FLNRv TLOhHSmmXwZuJLAcHLLlXHbhQQBhOVRkBQRiQHCjJIXtTW5PXxBxAWFjUaTwFXDoMZKmPNMfol0RMALs SYPfHtV4KwMeLAKaDFHlOZtzQYRfYXItOaK4PLNhHJBtGL5ISxSrWMBwReY1JLJpSUQeQHQitg8UWHUf YPZlGbWzCeJhTBGaZPKjTGstQHEqIEPpWWr7VTLuRR MoQX8GVvTtBGEeRzJ4BGBfPXTbPLEppf8LCJRhKGT3DMQ0AyVjSVZuXJFvXXgzDTTvTDB5BUg8MUIjNA QbAI5MHyIoVSKhRYS6OYMmOPKgWUGukq8XYLEqZLS2SAhzKpXhZMTwZZHtDLnkJMJdIKP3FNd7JMPhCE KjRG8CQoGhATYyPUqkCeAkOBBqQZLwao0BUBRnPJU0 HgYcAWKrGAOyLOJhITecJXSuJZP2Dau2ZCXkGSSbHP7QOtOjGGUaEAq5PaLiCTBtVXXhrj6ZZYFbYNL5 CRIpCVExXYPnMULhUYflZNUkXJI0Lmv9PROkNMFcYU1ARrGzKYDxJYy5XIQkATQjVZFrbh5AYCCoMMM2 ERcfFhHcDBPxGAKkWWhaIMGvUHS8PXi2YPTdIWSvWQ 8RIeYeJZRhPOLlUVThIGItHAUpvz0RDFVvOFH3UQA1PQOaMMRqKTVbBFruTSUnHKCwXXH1DRYnUZDnFU 8XBiTkUUPxIFW6ZjQtDJLyJALmeg2HrIKquLxngy1YOTcAGm3RjGhkSWArDTpfLy1klIY9FDLhKWLVCq 1GsgPeIDVgLJKFTOggYPFnOKG2XMC4SRU4FDX0HSW7 DOUvSjM3VKofQNMaDGM1MVJpUmV5WJFvGVGkYLGnWzu3AcDhVTJkFXozNKZmMoCdGoJ4RvP+SZ7wARg+ Im2Nw0AminV4qqSoYPs2FGPtMN9UFALQS4IXSg== ID Date Data Source [id number] 03/06/2019 10:08:48 PM EST [facility] Name Value Range Interpretation Code Description Data Shelbi rce(s) Supporting Document(s) ED Provider Note [facility] PNBYFm0aByFEBhOc63/OWYimTHFwn0LcASqtZZe6YRdiULPwR5PcRHM6jM4qOGH2KObRMiPhPsZcBDXw lbm [file] RA1AZGU+Tiffany+Oo7RYSPwSCVlBEFfZcSuUZHHXeJvU0UbM7ORl9CkE4IyVC81tXywlyQwUCaxUO7DSA8w SCGdUTWFHD1NiIClpG8zvrJ7KtBzMNNKDeKoF26xzCUlGZWeOGG7SCFlMi7BCHJgE6DeoyTxnYdvbwVv XYYsSQYWGC2QIYmkpnJwkFVmxXrbIX17eIscNT8YIb 3ZRmZcQO5ozd7LvKKqYj0XRHM2SC6TZOQuSFHrBVXvDZD6KHKlXkXtJTwcUWGiOZNiFUD3TMKkEMZkLZ 3NCoWzRWSmDMVkNnpgRJHfPOWnrb2WRXJaGAF4Eoq3CCOuXWJkFPXiGXwbZVXyNNWfLIW0GHPrSOVbIQ 0TWhDwLYIwZCU6LAQoFQOyZCVgcx3LSDRaRUFyNqn5 SrQpHYPyACDqLEjfDTSgZNX8HMCuZLVrMRClYA5QCnRrUQTuEFqsPMlmLKJaPWSffz6NFWJwRNMgBOyr IyIhDLHjZXXeQQugIYQiKZViLPCbEZRqKHYvEG4ZQuTjQCCgGYQcSTnzSFSnGKHkdw6LRNVhMKAbOzCa DOMiMPXuRPWbFHioJXFdVSS6NDX2CDOaADNzNE0WWp JkHONzPXY5TkUbGEJoXJCurv6QCSXhSFXlJDu1VoPaMLEsIBFlXAhdDDXsGQL1NKHpRWQyHJDgXQ7KZd LmGIIgWmI2UbNyUMJiVCKdlb5IQGRuHUEqBrZ6FQWcDUAxJEStLVfdZPJxQNS7NRZ5ISNqFWBaHH5IGp NqVBSvCcFvIdOoTZRrOZKcpc7RZGSsGHNpXOw8EpLt FNDrUAQpQLbgTWUwBZM5WGN3SQAzJJWcHR7WByOvOMRmLdW5OrcdQYAkBJEoox8ASLZpUZEoSkf1JHVj QMVhPXYuSPlvRMIcCSJ9FJu4PDZoWAMvVH9QLtUxKXCyPpAxVYCuREDbRWRvds2NOXOaQINzAQM5NZYy PVQvYKCdEXtdOFQuZBZ1KQsrKZOyMEDmYF4UFySoDD WyOul8IrHkCSInYOYrxe6QAKKyCKOyXCamEWIlASNyYXGqRFpaEHKjNXW2HFHiSOCzYCEpBH6GIjMjZT BgISB3IyFrQJVlGAAfpr0ZPWQrGDP7ITA0KqFbUTTxZMUfRCwyBAIcNRDiQtSrBGTzMIHaTS3CIdTwRV ChSSNqViSlIFSbYHQbxb9AYAMgBGZ5TpKpLpJyBSQk IRCkEWpnQKOdFHDaIrQvTUNyCLDeWP2DWrVqOCVwECG8KDKjRKKxQILivq8ORHNrZOF3URAeKmZxORIi AFLnCIfgLBBmGPX5MCCeWGKuGUNkNM0GXjArBDKxLFQ2EJYkNEQuRRSxvx0GDBEjZMD7AUh4NsOhVYQw BPIfPDpvAGDtGBM0CRCbGKGwXIPhRC8GNyCdYATzPJ RjGrqkBHRpLUJvpn8RQMRgVOS6IoTkRgVsPPOoACBoASgrWFTcNOF3GhBeQQXrOAAnQZ4JSoUrFFZzXZ haVIQsFIZvLDNpux1LMHHvLLP9ZLDdFUCpNDNxBYMtPRvzHPJaGNK8Aqt2ZCQhLJBcBX1TAuOcNCEsRI x0TPSvQRBcBQAqhh4XMAMqHGP1JXl5ZTNySPUoMCHm VHdcANCyQWV7LRV3NFZaKUMiXF3LHoCcYVUyUPojXrCyYZDzINWbft7PAFUnRTU1BOCkSgMaUIFdELIr DLf9caUaaULnEGh2ZZ6BX7QfwmAiHFMEYd9Jf049FGT2BLFxIx6TW4ieIb7pZNVqSVOFZd8IUOi9NbR8 VoGhFZIjVIU8WSw4Ukd2HNE5XWW6FGZbGWK3ANv+ID xvIIRpZuM9YBX6EGJtCKr3JVN0CCUzRuSdOXKgJwOjJT0pUPIGSt7+JIbnuILliRszRIXGJyP2UVXpPU rqUVQAOz3G ID Date Data Source [id number] 03/06/2019 10:38:00 AM EST [facility] [address] [place] [address] PHONE: [phone] FAX: [phone] Name .................. : JOE Knutson Acct Number.................. : [id number] ROOM. ................. : TR07 Number ................... : [id number] Stay type ............. : E/R Discharge Date......... ... : 03/04/19 Admit Date ......... : 03/04/19 Admit Phys .................... : SHE CATINA Date of ....... : 1990 Family Phys ................... : UNKNOWN Phone .................. : [phone] Age ................................ : 28 Film# .................. .:[id number] Sex ................................. : F Unsigned transcriptions are preliminary reports and do not represent a medical or legal document CT CERV SPINE W/O ASHLEY [address]7551 COMPLETE:03/04/19 17:09 KAH [id number] Reason(s): Trauma/Injury CT OF THE CERVICAL SPINE WITHOUT CONTRAST: INDICATION: Trauma. FINDINGS: Alignment is maintained. Anterior vertebral body heights are maintained. There is no evidence of fracture or dislocation. No significant degenerative changes are noted. IMPRESSION: No acute osseous abnormality of the cervical spine. While performing the above CT examination, radiation dose reduction was accompli shed utilizing automated exposure control, adjusting of the mA and kV based on the patient's body size and/or the use of imperative reconstructive techniques. CT dose: 321.3 mGycm Electronically Reviewed and Signed By Jae Goldstein M.D. , 03/06/19 10:38, [place] Transcribe Initials: DZ , Transcribe Date: 03/04/19 18:19, Dictation Date: Copy for: CHRIS August via fax Copy for: SHE Woodard via fax Copy for: EMERGENCY DEPT via modem Copy for: 710 MED REC DISCHARGED Page 1 of 1 Name Value Range Interpretation Code Description Data Shelbi rce(s) Supporting Document(s) ID Date Data Source [id number] 03/06/2019 10:38:00 [place] [address] PHONE: [phone] FAX: [phone] Name .................. : JOE Knutson Acct Number.................. : [id number] ROOM. ................. : TR-07 MR Number ................... : [id number] Stay type ............. : E/R Discharge Date......... ... : 03/04/19 Admit Date ......... : 03/04/19 Admit Phys .................... : SHE CATINA Date of ....... : 1990 Family Phys ................... : UNKNOWN Phone .................. : [phone] Age ................................ : 28 Film# .................. .:[id number] Sex ................................. : F Unsigned transcriptions are preliminary reports and do not represent a medical or legal document CT HEAD W/O CONTRAST [id number] COMPLETE:03/04/19 17:09 KAH [id number] Reaso n(s): Headache CT OF THE HEAD WITHOUT CONTRAST: INDICATION: Headache. FINDINGS: There are bilateral ventral peritoneal shunts from a bilateral frontal approach. The cortical sulci and ventricles are normal in size and position. No acute hemorrhage, infarct, mass effect or midline shift. No acute osseous abnormality. The paranasal sinuses and mastoid air cells are clear. The visualized orbits are unremarkable. IMPRESSION: No acute intracranial abnormality. While performing the above CT examination, radiation dose reduction was accomplished utilizing automated exposure control, adjusting of the mA and kV based on the patient's body size and/or the use of imperative reconstructive techniques. CT dose: 886.7 mGycm Electronically Reviewed and Signed By Jae Goldstein M.D. , 03/06/19 10:38, [facility] Transcribe Initials: JIE , Transcribe Date: 03/04/19 18:05, Dictation Date: Page 1 of 2 [facility] [address] [place] [address] PHONE: [phone] FAX: [phone] Name .................. : JOE Knutson Acct Number.................. : [id number] ROOM. ................. : TR- MR Number ................... : [id number] Stay type ............. : E/R Discharge Date......... ... : 03/04/19 Admit Date ......... : 03/04/19 Admit Phys .................... : SHE CATINA Date of ....... : 1990 Family Phys ................... : UNKNOWN Phone .................. : [phone] Age ................................ : 28 Film# .................. .:[id number] Sex ................................. : F Unsigned transcriptions are preliminary reports and do not represent a medical or legal document CT HEAD W/O CONTRAST [id number] COMPLETE:03/04/19 17:09 KAH [id number] Reason(s): Headache Copy for: CHRIS August via fax Copy for: SHE Woodard via fax Copy for: EMERGENCY DEPT via modem Copy for: 710 MED REC DISCHARGED Page 2 of 2 Name Value Range Interpretation Code Description Data Shelbi rce(s) Supporting Document(s) ID Date Data Source [id number] 03/04/2019 01:42:[address] [facility] [address] [facility] Emergency Department [address] [place] [address] Phone #: ext- [phone] 03/04/2019 13:28 Patient: NIMA DIAZ Sex: F : 1990 Age: 28yWEIGHT:111.1 kg (S) HEIGHT:62 inches (S) BMI:44.8ALLERGIES: Diamox, Sulfa AntibioticsCHIEF COMPLAINT: headacheDIAGNOSIS: Migraine, Hypertensive disorderLAB ORDERSOrder Description Priority Entered Acknowledged InitialedBMP STAT 14:22 03/04/2019 14:27 Chris Caruso Gary Frank R.N. PA-C ;CBC w Diff STAT 14:22 03/04/2019 14:27 Chris Caruso Gary Frank R.N. PA-C ;HCG Serum Qual STAT 14:22 03/04/2019 14:27 Chris Caruso Gary Frank R.N. PA-C ;DIAGNOSTIC STUDY ORDERSOrder Description Priority Entered Acknowledged InitialedCT Head W/O Cont STAT 14:22 03/04/2019 14:27 Shady,(Oxygen?(No)) Tylor Moore R.N., PA-C ; NOTES: Patient has a shunt and states that she feel and hit head in the location of the left shunt Reason for Study: HeadacheCT Spine Cervical STAT 14:22 03/04/2019 14:26 Shady,W/O Cont Tylor Moore R.N.(Oxygen?(No)) SUSAN ; Reason for Study: Trauma/InjuryMEDICATION/IV/DRIP/FLUID ORDERSOrder Description Priority Entered Acknowledged InitialedIV NS : Bolus 500 14:20 03/04/2019 14:28 Antonia, then 50 mL/hr Tylor Moore RN(NOW) SUSAN ;Zofran 4 mg IVP X 1 14:20 03/04/2019 14:28 Peterdose: 4 mg (NOW Tylor Moore RNx1) MARITOC ; [address] [facility] Emergency Department [address] [place] [address] Phone #: ext- [phone] 03/04/2019 13:28 Patient: NIMA DIAZ Sex: F : 1990 Age: 28yZofran 4 mg IVP X 1 15:00 03/04/2019 15:09 Shady,dose: 4 mg (NOW Tylor Moore R.N.x1) SUSAN ;Dilaudid IM 1 mg 15:00 03/04/2019 15:09 Shady,(HIGH ALERT Tylor Moore R.N.MEDICATION) SUSAN ;Reglan IVP 10 mg 16:14 03/04/2019 16:20 Chris Caruso Gary Frank R.N. PA-C ;Acetaminophen PO 16:14 03/04/2019 16:21 Sorbte,1000 mg (NOW) yTlor Moore R.N.C ;GENERAL ORDERSOrder Description Priority Entered Acknowledged Initialed[Electronically signed by Jose L Caruso R.N. (19:35 03/04/2019)][Electronically signed by Tylor Moore (20:59 03/04/2019)][Electronically locked by Jose L Caruso R.N. (19:35 1 )] Name Value Range Interpretation Code Description Data Shelbi rce(s) Supporting Document(s) ID Date Data Source [id number] 03/04/2019 01:42:[address] [facility] [address] [facility] Emergency Department [address] [place] [address] Phone #: ext- [phone] 03/04/2019 13:28 [id number] Sex: F : 1990 Age: 28yWeight: 111.1 kgHeight/Length: 62 in.BMI: 44.8ALLERGIES: Diamox, Sulfa AntibioticsThe patient's Home Medications are listed below:CONTINUE TAKING THE FOLLOWING MEDICATIONS: Align Oral, daily, at bedtime BusPIRone HCl Oral 10 mg, 2x a day Cabergoline Oral (0.5 mg) 1 tablet, once a week, on sunday Diclofen gel 1% PRN Ferrous Sulfate Oral 325 mg, 2x a day Folic Acid Oral (1 mg) 4 tablets, daily, every AM Lidocaine External (5 %), prn Magnesium Oxide Oral (400 mg) 1 tablet, daily, at bedtime MetFORMIN HCl Oral 850 mg, 2x a day PROzac Oral (40 mg) 1 capsule, daily, every AM Pyridoxine HCl Oral (100 mg) 1/2 tablet, 3x a day Topamax Oral (200 mg) 1 tablet, 2x a day Vitamin B12 Oral (1000 mcg) 1/2 tablet, daily, every AM Vitamin D3 Oral 125 mcg, daily, every AM Zanaflex Oral 4 mg, 2x a day, 1.5 tabs at night [address] [facility] Emergency Department [address] [place] [address] Phone #: ext- [phone] 03/04/2019 13:28 Patient: NIMA DIAZ Sex: F : 1990 Age: 28y Zofran ODT Oral (4 mg) 1 tablet, q8h, last dose: 1500, prnCONTINUE TAKING THE FOLLOWING MEDICATIONS UNTIL YOU CHECK WITH YOUR PHYSICIAN: Hydrocodone-Acetaminophen Oral (7.5-325 mg) 1 tablet, q6h, prnThe source(s) of the original Home Medication information:Not obtained.The following Medications were given to the patient in the Emergency Department:IV NS IV Fluids bolus 500 mL over 20 minute(s), then 50 mL/hr, administered: 03/04/2019 2:27:00 PMZofran [IVP] IVP 4 mg, administered: 03/04/2019 2:28:00 PMZofran [IVP] IVP 4 mg, administered: 03/04/2019 3:09:00 PMDilaudid [IVP] IVP 1 mg, administered: 03/04/2019 3:09:00 PMReglan [IVP] IVP 10 mg, administered: 03/04/2019 4:20:00 PMAcetaminophen [PO] PO 1000 mg, administered: 03/04/2019 4:21:00 PMThe following Medications were prescribed to the patient:None. Name Value Range Interpretation Code Description Data Shelbi rce(s) Supporting Document(s) ID Date Data Source [id number] 03/04/2019 01:42:[address] [facility] [address] [facility] Emergency Department [address] [place] [address] Phone #: ext- [phone] 03/04/2019 13:28 Patient: NIMA DIAZ Sex: F : 1990 Age: 28yWeight: 111.1 kgHeight/Length: 62 inBMI: 44.8ALLERGIES: Diamox, Sulfa Antibiotics Date/Time Medication Administered Medication OrderedStart IV NS IV NS : Bolus 500 mL, then 5014:27 03/04/2019 Dose: IV Fluids mL/hr (NOW)Vimal Eddy RN Rate: 50 mL/hr over 10 hour(s)---- Bolus: 500 mL over 20 minute(s)Stop Dispensed: 1000 mL bag16:55 03/04/2019 Site: #1 right upper Jose L Blanco R.N.Given ZOFRAN [IVP] (ONDANSETRON HCL) Zofran 4 mg IVP X 1 dose: 4 mg14:28 03/04/2019 Dose: 4 mg IVP (NOW x1)Vimal Eddy RN Site: #1 right upper armGiven ZOFRAN [IVP] (ONDANSETRON HCL) Zofran 4 mg IVP X 1 dose: 4 mg15:09 03/04/2019 Dose: 4 mg IVP (NOW x1)Jose L Caruso R.N. Site: #2 left forearmGiven DILAUDID [IVP] (HYDROMORPHONE Dilaudid IM 1 mg (HIGH ALERT15:09 03/04/2019 HCL) MEDICATION)Jose L Caruso R.N. Dose: 1 mg IVP Site: #2 left forearmGiven REGLAN [IVP] (METOCLOPRAMIDE Reglan IVP 10 mg16:20 03/04/2019 HCL)Jose L Caruso R.N. Dose: 10 mg IVP Site: #2 left forearmGiven ACETAMINOPHEN [PO] Acetaminophen PO 1000 mg16:21 03/04/2019 Dose: 1000 mg Tablets PO (NOW)Jose L Caruso R.N. Name Value Range Interpretation Code Description Data Shelbi rce(s) Supporting Document(s) ID Date Data Source [id number] 03/04/2019 01:42:[address] [facility] [address] [facility] Emergency Department [address] [place] [address] Phone #: ext- [phone] 03/04/2019 13:28 Patient: NIMA DIAZ Sex: F : 1990 Age: 28yChronic recurrent migraine headache without aura. No status migrainosus. Not refractory to treatment.Essential hypertension.INSTRUCTIONSYour Current Medications: Your current home medications have been reviewed.CONTINUE TAKING THE FOLLOWING MEDICATIONS:Align Oral : daily, at bedtime.BusPIRone HCl Oral : 10 mg 2x a day.Cabergoline Oral : Tablet 0.5 mg, 1 tablet once a week, on sunday.Ferrous Sulfate Oral : 325 mg 2x a day.Folic Acid Oral : Tablet 1 mg, 4 tablets daily, every AM.Lidocaine External : Patch 5 %, prn.Magnesium Oxide Oral : Tablet 400 mg, 1 tablet daily, at bedtime.PROzac Oral : Capsule 40 mg, 1 capsule daily, every AM.Pyridoxine HCl Oral : Tablet 100 mg, 1/2 tablet 3x a day.Topamax Oral : Tablet 200 mg, 1 tablet 2x a day.Vitamin B12 Oral : Tablet Extended Release 1000 mcg, 1/2 tablet daily, every AM.Vitamin D3 Oral : 125 mcg daily, every AM.Zanaflex Oral : 4 mg 2x a day, 1.5 tabs at night.Zofran ODT Oral : Tablet Disintegrating 4 mg, 1 tablet q8h, Last: 1500, prn.Diclofen gel 1% PRN*.MetFORMIN HCl Oral : 850 mg 2x a day.CONTINUE TAKING THE FOLLOWING MEDICATIONS UNTIL YOU CHECK WITH YOUR PHYSICIAN:Hydrocodone-Acetaminophen Oral : Tablet 7.5-325 mg, 1 tablet q6h, prn.Follow-up:Return to the emergency department as needed. Follow up with your healthcare provider . Callfor an appointment.Understanding of the discharge instructions verbalized by patient. ADDITIONAL INFORMATIONMigraine HeadacheThis often severe type of headache is different from other types of headaches in that symptoms other [address] [facility] Emergency Department [address] [place] [address] Phone #: ext- [phone] 03/04/2019 13:28 Patient: NIMA DIAZ Sex: F : 1990 Age: 28ythan pain occur with the headache. Nausea and vomiting, lightheadedness, sensitivity to light(photophobia), and other visual disturbances are common migraine symptoms. The pain may lastfrom a few hours to several days. It is not clear why migraines occur but certain factors called"triggers" can raise the risk of having a migraine attack. A migraine may be triggered by emotionalstress or depression, or by hormone changes during the menstrual cycle. Other triggers include birthcontrol pills, overuse of migraine medicines, alcohol or caffeine, foods with tyramine (such as agedcheese and wine), eyestrain, weather changes, missed meals, or too little or too much sleep.Home careFollow these tips when taking care of yourself at home: Don't drive yourself home if you were given pain medicine for your headache or are having visual symptoms. Instead, have someone else drive you home. Try to sleep when you get home. You should feel much better when you wake up. Cold can help ease migraine symptoms. Put an ice pack on your forehead or at the base of your skull. Put heat on the back of your neck to help ease any neck spasm. Drink only clear liquids or eat a light diet until your symptoms get better. This will help you avoid nausea and vomiting.How to prevent migrainesPay attention to what seems to trigger your headache. Try to avoid the triggers when you can. If youhave frequent headach es, consider keeping a headache diary. In it, write down what you were doing,feeling, or eating in the hours before each headache. Show this to your healthcare provider to helpfind the cause of your headaches.If stress seems to be a trigger for your headaches, figure out what is causing stress in your life. Learnnew ways to handle your stress. Ideas include regular exercise, biofeedback, self-hypnosis, yoga,and meditation. Talk with your healthcare provider to find out more information about managingstress. Many books and digital media are also available on this subject.Tyramine is a substance found in many foods. It can trigger a migraine in some people. These foodscontain tyramine: Chocolate Yogurt All cheeses, but especially aged cheeses Smoked or pickled fish and meat, including blanco, caviar, bologna, pepperoni, and salami Liver [address] [facility] Emergency Department [address] [place] [address] Phone #: ext- [phone] 03/04/2019 13:28 [facility]: [id number] Sex: F : 1990 Age: 28y Avocados Bananas Figs Raisins Red wineTry staying away from these foods for 1 to 2 months to see if you have fewer headaches.How to treat future headaches Take time out at the first sign of a headache, if possible. Find a quiet, dark, comfortable place to sit or lie down. Let yourself relax or sleep. Put an ice pack on your forehead or on the area of greatest pain. A heating pad and massage may help if you are having a muscle spasm and tightness in your neck. If you have been prescribed a medicine to stop a migraine headache, use this at the first warning sign of the headache for best results. First signs may be an aura or pain. If you need to take medicine often for your migraine, talk with your healthcare provider about other ways to prevent your headaches.Follow-up careFollow up with your [facility] provider, or as advised. Talk with your provider if you have frequentheadaches. He or she can figure out a treatment plan. Ask if you can have medicine to take at homethe next time you get a bad headache. This may keep you from having to visit the emergencydepartment in the future. You may need to see a headache specialist (neurologist) if you continue tohave headaches.When to seek medical adviceCall your healthcare provider right away if any of these occur: Your head pain gets worse, or doesn't get better within 24 hours You can't keep liquids down (repeated vomiting) Pain in your sinuses, ears, or throat Fever of 100.4 F (38 C) or higher, or as directed by your healthcare provider Stiff neck [address] [facility] Emergency Department [address] [place] [address] Phone #: ext- [phone] 03/04/2019 13:28 Patient: NIMA DIAZ Sex: F : 1990 Age: 28y Extreme drowsiness, confusion, or fainting Dizziness, or dizziness with spinning sensation (vertigo) Weakness in an arm or leg, or on one side of your face Difficulty talking or seeing 1999- 2017 [employer]. [address] [place] [address]. All rights reserved. This information is not intended as asubstitute for professional medical care. Always follow your healthcare professional's inst ructions.High Blood Pressure, To Be Confirmed, No TreatmentYour blood pressure today was higher than normal. Sometimes anxiety or pain can cause atemporary rise in blood pressure. It later returns to normal. Blood pressure that is high only one timedoesn't mean that you have high blood pressure (hypertension). High blood pressure is a chronicillness. But you should have your blood pressure measured again within the next few days to find outif it's still high.Blood pressure measurements are given as 2 numbers. Systolic blood pressure is the upper number.This is the pressure when the heart contracts. Diastolic blood pressure is the lower number. This isthe pressure when the heart relaxes between beats. You will see your blood pressure readingswritten together. For example, a person with a systolic pressure of 118 and a diastolic pressure of 78will have 118/78 written in the medical record.Blood pressure is categorized as normal, elevated, or stage 1 or stage 2 high blood pressure: Normal blood pressure is systolic of less than 120 and diastolic of less than 80 (120/80) Elevated blood pressure is systolic of 120 to 129 and diastolic less than 80 Stage 1 high blood pressure is systolic is 130 to 139 or diastolic between 80 to 89 Stage 2 high blood pressure is when systolic is 140 or higher or the diastolic is 90 or higherLifestyle changes such as weight loss, exercise, an d quitting smoking, can help manage your bloodpressure. Have your blood pressure checked regularly to be sure it is under control. [address] [facility] Emergency Department [address] [place] [address] Phone #: ext- [phone] 03/04/2019 13:28 Patient: [facility]IM[facility] DIA[id number] Sex: F : 1990 Age: 28yHome careTo track your blood pressure, your provider may ask you to come into the office at different times andon different days. If your healthcare provider asks you to check your readings at home, ask him or herwhat times of the day to test and for how many days. Before you leave the office, ask your provider toshow you how to take your blood pressure and be sure to ask questions if you don't understandsomething.Consider buying an automatic blood pressure monitor. Ask your provider for a recommendation aswell as the proper size cuff to fit your arm. You can buy blood pressure monitors at most pharmacies.The [place] [employer] recommends the following guidelines for home blood pressuremonitoring: Don't smoke or drink coffee or other caffeinated drinks for 30 minutes before taking your blood pressure. Go to the bathroom before the test. Relax for 5 minutes before taking the measurement. Sit with your back supported (don't sit on a couch or soft chair); keep your feet on the floor uncrossed. Place your arm on a solid flat surface (like a table) with the upper part of the arm at heart level. Place the middle of the cuff directly above the bend of the elbow. Check the monitor's instruction manual for an illustration. Take multiple readings. When you measure, take 2 to 3 readings one minute apart and record all of the results. Take your blood pressure at the same time every day, or as your healthcare provider recommends. Record the date, time, and blood pressure reading. Take the record with you to your next medical appointment. If your blood pressure monitor has a built-in memory, simply take the monitor with you to your next appointment. Call your provider if you have several high readings. Don't be frightened by a single high blood pressure reading, but if you get several high readings, check in with your healthcare provider. Note: When blood pressure reaches a systolic (top number) of 180 or higher OR diastolic (bottom number) of 110 or higher, seek emergency medical treatment.Follow-up careKeep all of your follow up appointments. If your blood pressure is more than 120 over 80 on 2 out of [address] [facility] Emergency Department [address] [place] [address] Phone #: ext- [phone] 03/04/2019 13:28 --- Patient: NIMA DIAZ Sex: F : 1990 Age: 28ydays, you will need to follow up with your healthcare provider for more evaluation and treatment.Don't put this off! High blood pressure can be treated. High blood pressure that's not treated raisesyour risk for heart attack, heart failure, and stroke.When to seek medical adviceCall your healthcare provider right away if any of these occur: Blood pressure reaches a systolic (top number) of 180 or higher, OR diastolic (bottom number) of 110 or higher Chest pain or shortness of breath Severe headache Throbbing or rushing sound in the ears Nosebleed Sudden severe pain in your belly (abdomen) Extreme drowsiness, confusion, or fainting Dizziness or dizziness with spinning sensation (vertigo) Weakness of an arm or leg or one side of the face You have problems speaking or seeing [id number] [employer]. [address] [place] [address]. All rights reserved. This information is not intended as asubstitute for professional medical care. Always follow your healthcare professional's instructions. You have been given the following additional information: Headache, Migraine, Classic Hypertension, To Be Confirmed(Electronically signed by Tylor Moore PA-C, 03/04/2019 20:59) Name Value Range Interpretation Code Description Data Shelbi rce(s) Supporting Document(s) ID Date Data Source [id number] 03/04/2019 01:42:[address] [facility] 1 Clinical Report - Nurses [facility] Emergency Department [address] [place] [address] Phone #: ext- [phone] 03/04/2019 13:28 Patient: NIMA DIAZ Sex: F : 1990 Age: 28yTRIAGEArrived by private vehicle. Historian: patient.Acuity: LEVEL 3.Chief Complaint: FALL. Lost balance; fell onto hard surface while walking. Landed on head.(DOG KNOCKED PT DOWN TO FLOOR).Location of injuries: left parietal area. This occurred (1 hours ago). 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 --13:38 03/04/19 Vimal Eddy RN13:30 03/04/19. BP: 169/124. MAP: 139. HR: 118. RR: 18. O2 saturation: 98% on room air. Temp: 98.8 F(oral). Pain level now: 11/12. --13:38 03/04/19 Vimal Eddy RN.Weight: 111.1 kg stated. Height/Length: 62 inches Per Patient. BMI: 44.8. --13:30 03/04/19 Vimal Eddy RN.MedicationsAlign Oral, daily at bedtime. BusPIRone HCl Oral 10 mg, 2x a day. Cabergoline Oral (Tablet 0.5 mg) 1 tablet, once a week (on sunday). Diclofen gel 1% PRN. Ferrous Sulfate Oral 325 mg, 2x a day. Folic Acid Oral (Tablet 1 mg) 4 tablets, daily every AM. Hydrocodone-Acetaminophen Oral (Tablet 7.5-325 mg) 1 tablet, q6h as needed. Lidocaine External (Patch 5 %), as needed. Magnesium Oxide Oral (Tablet 400 mg) 1 tablet, daily at bedtime. MetFORMIN HCl Oral 850 mg, 2x a day. PROzac Oral (Capsule 40 mg) 1 capsule, daily every AM. Pyridoxine HCl Oral (Tablet 100 mg) 1/2 tablet, 3x a day. Topamax Oral (Tablet 200 mg) 1 tablet, 2x a day. --14:26 03/04/19 Vimal Eddy RN Vitamin B12 Oral (Tablet Extended Release 1000 mcg) 1/2 tablet, daily every AM. Vitamin D3 Oral 125 mcg, daily every AM. 2 Clinical Report - Nurses [facility] Emergency Department [address] [place] [address] Phone #: [phone] 03/04/2019 13:28 Patient: [id number] Sex: F : 1990 Age: 28y Zanaflex Oral 4 mg, 2x a day (1.5 tabs at night). Zofran ODT Oral (Tablet Disintegrating 4 mg) 1 tablet, q8h as needed, last dose 1500. --14:03/04/19 Vimal Eddy RN. Allergies Diamox.(Anaphylaxis, angioedema) Sulfa Antibiotics.(Anaphylaxis, angioedema) --14:03/04/19 Vimal Eddy RN. History PAST MEDICAL HX: Tetanus status: up-to-date. Immunizations: up-to-date. Last normal menstrual period now. SOCIAL HX: Never smoker. No alcohol use or drug use. She was offered HIV testing but declined and hepatitis C testing but declined. She has not traveled outside the [place] Infectious disease exposure: No infectious disease exposure. SELF HARM ASSESSMENT: Self harm assessment was performed. The patient answered "no" to the question(s) "Have you recently felt down, depressed, or hopeless?", "Do you have thoughts of harming or killing yourself?", "Do you have a plan for harming or killing yourself?", "Have you recently had thoughts about harming or killing others?", "Do you have any dangerous items in your possession?", "Have you noticed less interest or pleasure in doing things?", "Are you here because you tried to hurt yourself?" and "Have you ever tried to hurt yourself before today?". ABUSE ASSESSMENT: No report of abuse. NUTRITIONAL RISK ASSESSMENT: The nutritional risk assessment revealed no deficiencies. FUNCTIONAL ASSESSMENT: Functional assessment: no impairments noted. LEARNING NEEDS ASSESSMENT: The learning needs assessment revealed no barriers. FALL RISK ASSESSMENT: Fall risk assessment completed. No risk factors identified. SKIN INTEGRITY ASSESSMENT: Skin integrity risk assessment completed. No skin integrity risk identified. --13:38 03/04/19 Vimal Eddy RN. Interventions To treatment room. --13:38 03/04/19 Vimal Eddy RN.PHYSICAL [id number] 03/04/19. Ambulatory to room.GENERAL / NEURO / PSYCH: Alert. Oriented X 4. Appears in no acute distress.HEENT: Left parietal area: tenderness. Head.RESPIRATORY: Respirations not labored. Chest nontender. Breath sounds within normal limits.CVS: Normal heart rate and rhythm. Pulses within normal limits. Capillary refill less than 2 seconds. 3 Clinical Report - Nurses [facility] [address] [place] [address] Phone #: ext- [phone] 03/04/2019 13:28 [id number] Sex[facility] F : 1990 Age: 28y GI / : Abdomen soft and nontender. EXTREMITIES: Extremities exhibit normal ROM. Neuro-vascular status intact to the extremity. SKIN: Skin intact. Skin is warm and dry. --14:06 03/04/19 Jose L Caruso R.N.NURSING PROGRESS NOTESPatient gowned. Reassurance given. Two patient identifiers checked. Call light placed in reach. Siderails up x 2. Bed placed in lowest position. Brakes of bed on. Patient ready for evaluation- PA notified.--14:06 03/04/19 Jose L Caruso RTamaraNTamara 14:07 03/04/2019 Site #1 started via IV in the right upper arm with an 18g angiocath, with aseptic technique and good blood return; two attempts. Saline lock flushed with 10 mL saline. --14:07 03/04/19 Vimal Eddy RN 14:07 03/04/19. BP: 143/76. MAP: 98. HR: 114. RR: 18. O2 saturation: 99%. Pain level now: 11/12. --14:08 03/04/19 Vimal Eddy RN 14:27 03/04/2019 Started bag #1 1000 mL IV Fluids IV NS; bolus of 500 mL over 20 minute(s) then at 50 mL/hr over 10 hour(s) via site #1 via IV pump. Allergies verified and confirmed 5 rights. IV patency established. IV site checked: no pain, redness, or swelling. IV flushed thoroughly pre- and post-medication administration. Information reviewed with patient including reason for taking this medication. Verbalizes understanding. --14:28 03/04/19 Vimal Eddy RN 14:28 03/04/2019 Zofran (Ondansetron HCl) IVP 4 mg given over 2 minute(s) via site #1. Allergies verified and confirmed 5 rights. IV patency established. IV site checked: no pain, redness, or swelling. IV flushed thoroughly pre- and post-medication administration. IVP given by RN. Information reviewed with patient including reason for taking this medication. Verbalizes understanding. --14:29 03/04/19 Vimal Eddy RN 14:37 03/04/2019 Site #2 started via IV in the left forearm with an 20g angiocath, with aseptic technique and good blood return; one attempt. Saline lock flushed with 10 mL saline. --14:37 03/04/19 Jose L Caruso R.N. 14:37 03/04/2019 Site #1 removed. Bandage applied. --14:37 03/04/19 Jose L Caruso R.N. GENERAL / NEURO / PSYCH: The patient reports pain that is located in the head is still present and worsening and currently moderate in severity. --14:40 03/04/19 Jose L Caruso RNafisa 15:04 03/04/19. Reassurance given. Reassessment acuity: LEVEL 3. Reassessment after medication administered. No adverse reaction. Nausea still present but improving. She reports no complaints and she has had no adverse reaction. Overall patient status is the same- she states feels the same. GENERAL / NEURO / PSYCH: Alert. Oriented X 4. RESPIRATORY: No respiratory distress. CVS: Capillary refill less than 2 seconds. EXTREMITIES: Neuro-vascular status intact to the extremity. Two patient identifiers checked. Call light placed in reach. Side rails up x 2. Bed placed in lowest position. Brakes of bed on. --15:05 03/04/19 4 Clinical Report - Nurses [facility] [address] [place] [address] Phone #: ext- [phone] 03/04/2019 13:28 Patient: NIMA DIAZ Sex: F : 1990 Age: 28y Jose L Caruso R.N. 15:03/04/2019 Zofran (Ondansetron HCl) IVP 4 mg given over 2 minute(s) via site #2. Allergies verified and confirmed 5 rights. IV patency established. IV site checked: no pain, redness, or swelling. IV flushed thoroughly pre- and post-medication administration. IVP given by RN. Information reviewed with patient including reason for taking this medication, signs of allergic reaction and precautions. Verbalizes understanding. --15:03/04/19 Jose L Caruso R.N. 15:03/04/2019 Dilaudid (HYDROmorphone HCl) IVP 1 mg given over 2 minute(s) via site #2. Allergies verified and confirmed 5 rights. IV patency established. IV site checked: no pain, redness, or swelling. IV flushed thoroughly pre- and post-medication administration. IVP given by RN. Information reviewed with patient including reason for taking this medication, signs of allergic reaction, precautions and sedative warning. Verbalizes understanding. --15:09 03/04/19 Jose L Caruso R.N. 15:32 03/04/19. BP: 147/95. MAP: 112. HR: 89. RR: 18. O2 saturation: 100%. --15:39 03/04/19 JonathanChinaCache Tech1 16:10 03/04/19. Reassessment acuity: LEVEL 3. Reassessment after medication administered. No adverse reaction. Pain still present but improving. She is calm and resting quietly and has had no adverse reaction. Overall patient status is improved- she states feels better. GENERAL / NEURO / PSYCH: Alert. Oriented X 4. RESPIRATORY: No respiratory distress. CVS: Capillary refill less than 2 seconds. EXTREMITIES: Neuro-vascular status intact to the extremity. --16:10 03/04/19 Jose L Caruso R.N. 16:20 03/04/2019 Reglan (Metoclopramide HCl) IVP 10 mg given over 2 minute(s) via site #2. Allergies verified and confirmed 5 rights. IV patency established. IV site checked: no pain, redness, or swelling. IV flushed thoroughly pre- and post-medication administration. IVP given by RN. Information reviewed with patient including reason for taking this medication, signs of allergic reaction and precautions. Verbalizes understanding. --16:20 03/04/19 Jose L Caruso R.N. 16:21 03/04/2019 Acetaminophen PO Tablets 1000 mg given. Allergies verified and confirmed 5 rights. Information reviewed with patient including reason for taking this medication, signs of allergic reaction and precautions. Verbalizes understanding. --16:21 03/04/19 Jose L Caruso R.N. 16:55 03/04/2019 IV Fluids IV NS via IV site #1 Discontinued: bag #1 infused. Total amount infused: 800 mL. --17:05 03/04/19 Jose L Caruso R.N.DISPOSITION / DISCHARGE 16:56 03/04/19. BP : 125/86. MAP: 99. HR: 95. RR: 17. O2 saturation: 97%. Temp: 98.3 F. Pain level now: 08/12. --16:56 03/04/19 [facility] [employer], ANUM Dinero Tech1 16:54 03/04/2019 Site #2 removed upon discharge. Catheter intact. Bandage applied. --17:04 03/04/19 Jose L Caruso R.N. 5 Clinical Report - Nurses [facility] [address] [place] [address] Phone #: ext- [phone] 03/04/2019 13:28 Patient: NIMA DIAZ Sex: F : 1990 Age: 28y Departure time: 17:04 03/04/2019. Condition at departure: improved and stable. The goals identified in the patient's plan of care were met. Fall risk assessment completed. No risk factors identified. No learning barriers present. Discharge instructions provided and reviewed with the patient. Reviewed warnings. Reviewed medication(s). Treatments reviewed. Reviewed referrals. Patient verbalized understanding. The patient was discharged by the physician multimedia production assistant. She was discharged home and unaccompanied at time of discharge. She left ambulatory and via private vehicle. Patient driving. --17:04 03/04/19 Jose L Caruso R.N.Locked/Released at 03/04/2019 19:35 by Jose L Caruso R.N. Name Value Range Interpretation Code Description Data Shelbi rce(s) Supporting Document(s) ID Date Data Source [id number] 03/04/2019 01:42:[address] [facility] 1 Clinical Report - Physicians/Mid Levels [facility] [address] [place] [address] Phone #: ext- [phone] 03/04/2019 13:28 Patient: NIMA DIAZ Sex: F : 1990 Age: 28y Time Seen: 14:23 03/04/2019. Arrived- By private vehicle. Historian- patient. Disposition decision: 16:48 03/04/2019.HISTORY OF PRESENT ILLNESS Chief Complaint: HEADACHE. Is still present. This started just prior to arrival. It is described as "pain" and sharp. Located in the left parietal region. No neck pain. Not located in the facial region. The patient has had nausea. No preceding symptoms, blurred vision, photophobia, numbness or weakness. No vomiting. No recent travel. Similar symptoms previously. Patient has had similar symptoms many times.REVIEW OF SYSTEMSNo anorexia, chills, fatigue, fever or muscle aches. No sweats, weight loss, decreased vision, doublevision or eye irritation. No photophobia, ear drainage or pain, hearing loss or tinnitus. No nasalcongestion, epistaxis, runny nose, sinus pain or sore throat. No calf pain, chest pain, cough, difficultybreathing or neck pain. No alteration in mental status, dizziness, fainting episodes, numbness or seizure.No suicidal thoughts, weakness or anxiety. The patient has had depression and a headache. Shesustained a mild head injury from a fall. The patient had nausea. No associated loss of consciousness.Denies sleep disorder. No difficulty walking.PAST HISTORYSee nurses notes. 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 Medications: Vitamin B12 Oral (Tablet Extended Release 1000 mcg) 1/2 tablet, daily every AM. Vitamin D3 Oral 125 mcg, daily every AM. Zanaflex Oral 4 mg, 2x a day (1.5 tabs at night). Zofran ODT Oral (Tablet Disintegrating 4 mg) 1 tablet, q8h as needed, last dose 1500. Align Oral, daily at bedtime. BusPIRone HCl Oral 10 mg, 2x a day. Cabergoline Oral (Tablet 0.5 mg) 1 tablet, once a week (on sunday). Diclofen gel 1% PRN. Ferrous Sulfate Oral 325 mg, 2x a day. Folic Acid Oral (Tablet 1 mg) 4 tablets, daily every AM. Hydrocodone-Acetaminophen Oral (Tablet 7.5-325 mg) 1 tablet, q6h as needed. Lidocaine External (Patch 5 %), as needed. Magnesium Oxide Oral (Tablet 400 mg) 1 tablet, daily at bedtime. MetFORMIN HCl Oral 850 mg, 2x a day. PROzac Oral (Capsule 40 mg) 1 capsule, daily every AM. 2 Clinical Report - Physicians/Mid Levels [facility] [address] [place] [address] Phone #: ext- [phone] 03/04/2019 13:28 Patient: NIMA DIAZ Sex: F : 1990 Age: 28y Pyridoxine HCl Oral (Tablet 100 mg) 1/2 tablet, 3x a day. Topamax Oral (Tablet 200 mg) 1 tablet, 2x a day. Allergies: Diamox.(Anaphylaxis, angioedema) Sulfa Antibiotics.(Anaphylaxis, angioedema).SOCIAL HISTORYNever smoker. No alcohol use or drug use. No recent travel.ADDITIONAL NOTESThe nursing notes have been reviewed.PHYSICAL EXAMVital Signs: 03/04/2019 14:07 BP: 143/76. MAP: 98. HR: 114. RR: 18. O2 saturation: 99%. Pain level now:9/10. Have been reviewed as abnormal. Hypertensive. Tachycardic. Oxygen saturation normal.Appearance: Alert. No acute distress.Eyes: Pupils equal, round and reactive to light. Eyes normal inspection.ENT: Ears normal. Nose normal. Pharynx normal.Neck: Normal inspection. Neck supple.CVS: Normal heart rate and rhythm. Heart sounds normal. Pulses normal.Respiratory: No respiratory distress. Painless inspiration.Abdomen: Soft and nontender.Skin: Skin warm and dry. Normal skin color. No rash. Normal skin turgor.Extremities: Extremities exhibit normal ROM. No lower extremity edema.Neuro: Oriented X 3. Alert. Mood/affect normal. Speech normal. Cranial nerves normal (as tested).No motor deficit. No sensory deficit. Reflex exam: right biceps 2+ and left biceps 2+.LABS, X-RAYS, AND EKGCT C-Spine: No acute findings. The study was interpreted by the radiologist. Interpretation time: 16:0512.CT Head: Normal study. The study was interpreted by the radiologist. Interpretation time: :.Laboratory Tests: BMP: (SOPHY: 03/04/2019 14:41) ( MsgRcvd 03/04/2019 15:11) Final results Test Result Flag Units (Reference) BASIC METABOLIC PANEL BASIC METABOLIC PANEL SODIUM 142 mEq/L (134 - 153) POTASSIUM 4.1 mEq/L (3.6 - 5.0) CHLORIDE 103 mEq/L (98 - 107) CO2 25 MEQ/L (22 - 30) GLUCOSE 89 MG/DL (65 - 110) BUN 17 MG/DL (7 - 21) CREATININE 0.6 L MG/DL (0.7 - 1.5) BUN/CREAT 28 H (8 - 27) CALCIUM 10.1 MG/DL (8.4 - 10.2) ANION GAP 14.0 mmol/L (8.0 - 16.0) AGE 28 yrs AFR AMER GFR >60 mL/min 3 Clinical Report - Physicians/Mid Levels [facility] [address] [place] [address] Phone #: ext- [phone] 03/04/2019 13:28 Patient: NIMA DIAZ Sex: F : 1990 Age: 28y NON-AA GFR >60 mL/min Male GFR Interprentation 20-49 yrs >60 mL/min Normal 50-59 yrs >56 mL/min Normal 60-69 yrs >49 mL/min Normal 70- 79yrs >42 mL/min Normal 80 and above >35 mL/min Normal Female GFR Interpretation 20-39 yrs > 60 mL/min Normal 40-49 yrs >58 mL/min Normal 50-59 yrs >51 mL/min Normal 60-69 yrs >45 mL/min Normal 70-79 yrs >39 mL/min Normal 80 and above >32 mL/min Normal CBC w Diff: (SOPHY: 03/04/2019 14:41) ( [facility] [place] 14:51) Final results Test Result Flag Units (Reference) CBC W/AUTOMATED DIFF COMPLETE BLOOD COUNT WBC 8.8 10/uL (4.2 - 11.0) RBC 4.90 10/uL (4.20 - 5.40) HEMOGLOBIN 14.3 g/dL (12.0 - 16.0) HEMATOCRIT 44.1 % (37.0 - 47.0) MCV 90.0 fL (81.0 - 101) MCH 29.2 pg (27.0 - 34.0) MCHC 32.4 g/dL (31.0 - 36.0) RDW 13.1 % (11.5 - 14.5) PLATELETS 329 10/uL (150 - 450) MPV 9.7 fL (7.4 - 10.4) NEUT 66.2 % (37.0 - 80.0) LYMPH 21.7 L % (25.0 - 40.0) MONO 9.1 H % (3.0 - 8.0) EOS 1.8 % (0.0 - 7.0) BASO 0.7 % (0.0 - 2.5) %IG 0.5 H % (0.0 - 0.0) %NRBC 0.0 % (0.0 - 0.0) #NEUT 5.85 10/uL (2.00 - 6.90) #LYMPH 1.92 10/uL (0.60 - 3.40) #MONO 0.80 10/uL (0.00 - 0.90) #EOS 0.16 10/uL (0.00 - 0.70) #BASO 0.06 10/uL (0.00 - 0.20) #IG 0.04 10/uL (0.00 - 0.10) #NRBC 0.00 10/uL (0.00 - 0.00) MANUAL DIFF NOT INDICATED RBC MORPH NOT INDICATED Beta- HCG, Qual Serum: (SOPHY: 03/04/2019 14:41) ( [facility] [place] 03/04/[place] 15:11) Final results Test Result Flag Units (Reference) HCG SERUM QUAL NEGATIVE (NORMAL: NEGAT HCG SERUM QL REENTER NEGATIVE (NORMAL: NEGAT { KIT LOT # [id number] ){ KIT EXP DATE 08-22-20 ){ PROCEDURAL CONTROL VALID ).PROGRESS AND PROCEDURESCourse of Care: ( 28yo Female who receives her neurosur kymberly care at [facility] in [place]. She hasbeen stable and pain free since November she reports. She states that today her dog tripped her andshe struck a bar stool on the left shunt area and now has URIAS and nausea. She appears stable andcomfortable in NAD. She is a good historian and had appropriate communication skill and CN use. Planis to CT head and re-eval.). ( Given pain meds and now resting comfortably and laughing during the follow-up interview. She still stable.). 4 Clinical Report - Physicians/Mid Levels [facility] [address] [place] [address] Phone #: ext- [phone] 03/04/2019 13:28 Patient: NIMA DIAZ Sex: F : 1990 Age: 28y ( explained the normal results to CT scans and labs. Patient stated that makes her feel better but still has some nausea and asked for Reglan which usually helps therefore we will try this and re-eval.). ( Patient states that the nausea is now resolved and the Headache at a manageable level. She states that she is ready to be discharged and has her ride coming. The clinical picture is stable and discharge with PCM follow-up. Instructed to follow-up with PCM if symptoms persist or worsen. discussed results of encounter and proposed care plan. Explained return criteria. Answered all questions during the encounter. Patent verbalized agreement and understanding with care plan.). Disposition: Condition: good. Discharge decision based on the following: patient's condition is stable; patient is ambulatory; patient drinking fluids; patient's pain is controlled; patient's exam is stable; minimally abnormal test results; stable condition on repeat evaluation; social support is adequate; transportation is available; follow-up is available. Instructed to follow-up with PCM if symptoms persist or worsen. discussed results of encounter and proposed care plan. Explained return criteria. Answered all questions during the encounter. Patient verbalized agreement and understanding with care plan.CLINICAL IMPRESSION Chronic recurrent migraine headache without aura. No status migrainosus. Not refractory to treatment. Essential hypertension.INSTRUCTIONS Your Current Medications: Your current home medications have been reviewed. CONTINUE TAKING THE FOLLOWING MEDICATIONS: Align Oral : daily, at bedtime. BusPIRone HCl Oral : 10 mg 2x a day. Cabergoline Oral : Tablet 0.5 mg, 1 tablet once a week, on sunday. Ferrous Sulfate Oral : 325 mg 2x a day. Folic Acid Oral : Tablet 1 mg, 4 tablets daily, every AM. Lidocaine External : Patch 5 %, prn. Magnesium Oxide Oral : Tablet 400 mg, 1 tablet daily, at bedtime. PROzac Oral : Capsule 40 mg, 1 capsule daily, every AM. Pyridoxine HCl Oral : Tablet 100 mg, 1/2 tablet 3x a day. Topamax Oral : Tablet 200 mg, 1 tablet 2x a day. Vitamin B12 Oral : Tablet Extended Release 1000 mcg, 1/2 tablet daily, every AM. Vitamin D3 Oral : 125 mcg daily, every AM. Zanaflex Oral : 4 mg 2x a day, 1.5 tabs at night. Zofran ODT Oral : Tablet Disintegrating 4 mg, 1 tablet q8h, Last: 1500, prn. Diclofen gel 1% PRN*. 5 Clinical Report - Physicians/Mid Levels [facility] [address] [place] [address] Phone #: ext- [phone] 03/04/2019 13:28 Patient: NIMA DIAZ Sex: F : 1990 Age: 28y MetFORMIN HCl Oral : 850 mg 2x a day. CONTINUE TAKING THE FOLLOWING MEDICATIONS UNTIL YOU CHECK WITH YOUR PHYSICIAN: Hydrocodone-Acetaminophen Oral : Tablet 7.5-325 mg, 1 tablet q6h, prn. Follow-up: Return to the emergency department as needed. Follow up with your healthcare provider . Call for an appointm ent. Understanding of the discharge instructions verbalized by patient.(Electronically signed by Tylor Moore PA-C, 03/04/2019 20:59) Name Value Range Interpretation Code Description Data Shelbi rce(s) Supporting Document(s) ID Date Data Source [id number] 03/04/2019 03:11:[address] [facility] Name Value Range Interpretation Code Description Data Shelbi rce(s) Supporting Document(s) BASIC METABOLIC PANEL [facility] BASIC METABOLIC PANEL Sodium [Moles/volume] in Serum or Plasma 142 mEq/L 134 - 153 [facility] Potassium [Moles/volume] in Serum or Plasma 4.1 mEq/L 3.6 - 5.0 [facility] Chloride [Moles/volume] in Serum or Plasma 103 mEq/L 98 - 107 [facility] Carbon dioxide, total [Moles/volume] in Serum or Plasma 25 MEQ/L 22 - 30 [facility] Glucose [Mass/volume] in Serum or Plasma 89 MG/DL 65 - 110 [facility] BUN 17 MG/DL 7 - 21 [facility] Creatinine [Mass/volume] in Serum or Plasma 0.6 MG/DL 0.7 - 1.[address] [facility] BUN/CREAT 28 8 - 27 H [facility] Calcium [Mass/volume] in Serum or Plasma 10.1 MG/DL 8.4 - 10.2 [facility] Anion gap 3 in Serum or Plasma 14.0 mmol/L 8.0 - 16.0 [facility] AGE 28 yrs [facility] al AFR AMER GFR >60 mL/min [facility] Ho spital NON-AA GFR >60 mL/min [facility] ital Male GFR Inter prentation 20-49 yrs >60 mL/min Normal 50-59 yrs >56 mL/min Normal 60-69 yrs >49 mL/min Normal 70-79yrs >42 mL/min Normal 80 and above >35 mL/min Normal Female GFR Interpretation 20-39 yrs >60 mL/min Normal 40-49 yrs >58 mL/min Normal 50-59 yrs >51 mL/min Normal 60-69 yrs >45 mL/min Normal 70-79 yrs >39 mL/min Normal 80 and above >32 mL/min Normal ID Date Data Source [id number] 03/04/2019 03:11:[address] [facility] Name Value Range Interpretation Code Description Data Shelbi rce(s) Supporting Document(s) HCG SERUM QUAL NEGATIVE NORMAL: NEGATIVE [facility] HCG SERUM QL REENTER NEGATIVE NORMAL: NEGATIVE [facility] { KIT LOT # [id number] ){ KIT EXP DATE 08-22-20 ){ PROCEDURAL CONTROL VALID ) ID Date Data Source [id number] 03/04/2019 02:51:[address] [facility] Name Value Range Interpretation Code Description Data Shelbi rce(s) Supporting Document(s) CBC W/AUTOMATED DIFF [facility] COMPLETE BLOOD COUNT Leukocytes [#/volume] in Blood by Automated count 8.8 10^3/uL 4.2 - [address] [facility] Erythrocytes [#/volume] in Blood by Automated count 4.90 10^6/uL 4. 20 - 5.40 [facility] Hemoglobin [Mass/volume] in Blood 14.3 g/dL 12.0 - 16.0 [facility] Hematocrit [Volume Fraction] of Blood by Automated count 44.1 % 3 7.0 - 47.0 [facility] Erythrocyte mean corpuscular volume [Entitic volume] by Auto mated count 90.0 fL 81.0 - 101 [facility] Erythrocyte mean corpuscular hemoglobin [Entitic mass] by Automated count 29.2 pg 27.0 - 34.0 [facility] Erythrocyte mean corpuscular hemoglobin concentration [Mass/volume] by Automated count 32.4 g/dL 31.0 - 36.0 [facility] Erythrocyte distribution width [Ratio] by Automated count 13.1 % 11.5 - 14.5 [facility] Platelets [#/volume] in Blood by Automated count 329 10^3/uL 150 - [address] [facility] Platelet mean volume [Entitic volume] in Blood by Automated count 9.7 fL 7.4 - 10.4 [facility] Neutrophils/100 leukocytes in Blood by Automated count 66.2 % 37. 0 - 80.0 [facility] Lymphocytes/100 leukocytes in Blood by Manual count 21.7 % 25.0 - 40.[address] [facility] Monocytes/100 leukocytes in Blood by Automated count 9.1 % 3.0 - 8.[address] [facility] Eosinophils/100 leukocytes in Blood by Automated count 1.8 % 0.0 - 7.0 [facility] Basophils/100 leukocytes in Blood by Automated count 0.7 % 0.0 - 2.5 [facility] %IG 0.5 % 0.0 - 0.0 H [facility] Hospit al %NRBC 0.0 % 0.0 - 0.0 [facility] al Neutrophils [#/volume] in Blood by Automated count 5.85 10^3/uL 2.00 - 6.90 [facility] Lymphocytes [#/volume] in Blood by Automated count 1.92 10^3/uL 0.60 - 3.40 [facility] Monocytes [#/volume] in Blood by Automated count 0.80 10^3/uL 0.00 - 0.90 [facility] Eosinophils [#/volume] in Blood by Automated count 0.16 10^3/uL 0.00 - 0.70 [facility] Basophils [#/volume] in Blood by Automated count 0.06 10^3/uL 0.00 - 0.20 [facility] #IG 0.04 10^3/uL 0.00 - 0.10 [facility] H ospital #NRBC 0.00 10^3/uL 0.00 - 0.00 [facility] H ospital MANUAL DIFF NOT INDICATED [facility] RBC MORPH NOT INDICATED [facility] Ho spital ID Date Data Source [id number] 03/01/2019 09:23:38 AM [facility] Name Value Range Interpretation Code Description Data Shelbi rce(s) Supporting Document(s) [facility] [id number] [file] [id number]/FORKLIFT OPERATOR+yK6lCy+HExcvRB9IGz+ewndfYqBRIppni0w07hOimEFB4URNLlR/IhIFQNk+AP UQIaMu3TXigh6zAtG6aeJdA+7fwGws4XbABGftw/1X oWntmSFXAt07RPAKJjnRnF3b/iZaJYnWX8MBH7egRb46g2JD/xHwd6qeDAjim7KVxCVcVm/A5CIbZRqH 9MmPojGcrlA/HdNECntaOhQOZS3nPvWSymSPF1Ykw6V1P7pe6zObxGpBlkjUkylVeAVKkjw4PMNCsYTX uwa0CLorVW3PkRGglvP+PDuZzGcOOctMEpxa4t1y9Y 6VJp3rtDBmfjcVBfttj5DKnVusPOKrsrGGYPTwcWK9xzQnD7xjwP4HFAXgvtvPRXO0P5W4JcAlEGQbUs eRKv5xyG3VTXZVUlBTHgEtwln6jABEomr9IcdcjngKGWd15mHAsrF/w0ZRhThPCClAVngblhFDAcPNId Sesar//vdAGweiH18wqiW7mT/9ow9a1aO2J3mibviT01 Plcjq/JXrb1KTGwIJ2Nm2GlYHVaS3mG4zJYeFqFSCTuSNIqSTkpMT8gQncVt+DGrkAT0sneR3S+VDYkU tOdGVWZAu+1LptNmWceEj7BgB9Ml/Ugwc0lCrB356wuKsaIU/hYKC1uE5r1JwMLR/bmLXwZNMy19Y03/ DqYbLmZDRQmos5h76TgQUgSWxpKZ5BqHmcs/SyuF29 CqEq3OlI7IOiHUhq8FMepiKT5mmwt5ut0eh9Waat3oxdbdAvD60iVSun5fgpjbj6lUEMxGAfTM+dxYl2 S3dShynZzehzXY4j2tAn+zdUXatGC4qdhpU2Ekepg8HwRtI2Qpn2/LvhVKtMDLi6iUzzfYYgYN5uR41Y BcXzGkMDt61BG3I4CPAOw9Vpvlv14/R89yk0onMf51 vMPtyg+QH8/ZsFaXo1NAnbfoVejQVdJD1MAgMmSR8tog3IAZHqMP8rxr1IULB4HH9XAVLjWT6WiUVxY0 SfK3OIUrHnPIZiQQBkFL84CBUxNUDTKDtmJJKxW0Btp041jaDmvnPbEOVmAk1EROQkSR5WJARlJOQkqC IpCPNnSEKuNxC3BHVcYKxcRAOhA7EeodXknwCfWBwd ZWEYDUfqPDBmJ5jue6AvMOr9ZJ7ABQ6JbpBkx0KfqxDeY3zjL1HUBL5WFAChX3HUP5TbG0ykCrZtg0Do Z1mpZbZrs7ZoUa8CTqKcCa8OJmFfGM7hyg5IPOYeZRFmMscSCjDjULegWntmfMPnLM3YcYC3FKJbY05p ZDVgUVWxD4IsMJWpVqA+Aw5NWFPiqFOvEJ2JTsxQ2W jqdkJQPZ9igc+qR6XRYoUqtcTTABjzPUOpNnuwTvILWpRCP+0xkL/aT4egdH+pk+qA6wthn4EVHeWaSu SOPudbPy8BipzxQ4FOS9tv4FYD2rGvsar8ud39YY9A+d3z4ZAtCHj+bm+Eil3M7uvO03kpcaHCabk6wx bP0b9aA3e6V7h3+oQ91T3xOB034s7CzimeFy9Kj+N8 [file] [id number]== ID Date Data Source [id number] 03/01/2019 12:28:59 AM [facility] XR ABDOMEN AP SUPINE AND LATERAL VIEW [id number] 019FINAL RESULTInterpreted by:Kalen Olivier MDPROCEDURE INFORMATION: Exam: XR Abdomen, 2 Views Exam date and time: 02/28/2019 11:52 PM Age: 28 years old Clinical indication: Illness, unspecified; Device placement; Non-vascular device; Other: Calculus Professor shunt; Patient HX: PT C/O left side pain TECHNIQUE: Imaging protocol: XR of the abdomen. Frontal supine and upright views of the abdomen. Views: 2 Views. COMPARISON: CR XR ABDOMEN AP SUPINE AND LATERAL VIEW [id number] 10/16/2018 1:48 AM FINDINGS: Gastrointestinal tract: Normal. No bowel dilation. Intraperitoneal space: Normal. No free air. Bones/joints: Unremarkable for age. Intact bilateral ventriculoperitoneal shunt tubes extending into the abdominal peritoneum. Comparison to prior examination these tubes have similar appearance.IMPRESSION: No acute findings. Intact [employer] EQUIPMENT MECH[employer]IC shunt tubes extending into the abdominal peritoneumTHIS DOCUMENT HAS BEEN ELECTRONICALLY SIGNED BY KALEN OLIVIER MDThis document has been electronically signed by Kalen Olivier MD on 03/01/2019 12:28 AM Name Value Range Interpretation Code Description Data Shelbi rce(s) Supporting Document(s) ID Date Data Source [id number] 03/01/2019 12:28:19 AM [facility] XR CHEST FRONTAL AND LATERAL [id number] RESULTInterpreted by:CAROLIN JulianROCEDURE INFORMATION: Exam: XR Chest, 2 Views Exam date and time: 02/28/2019 11:52 PM Age: 28 years old Clinical indication: Illness, unspecified; Device placement; Other: 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 COMPARISON: No relevant prior studies available. FINDINGS: Lungs: Unremarkable. No consolidation. Pleural space: Unremarkable. No pleural effusion. No pneumothorax. Heart/Mediastinum: Unremarkable. No cardiomegaly. Bones/joints: Unremarkable. Bilateral intact ventricular peritoneal shunt tubes are in place extending into the abdomenIMPRESSION: No acute findings. Intact bilateral [employer] EQUIPMENT MECH[employer]IC shunt tubesTHIS DOCUMENT HAS BEEN ELECTRONICALLY SIGNED BY KALEN OLIVIER MDThis document has been electronically signed by Kalen Olivier MD on 03/01/2019 12:28 AM Name Value Range Interpretation Code Description Data [facility] rce(s) Supporting Document(s) ID Date Data Source [id number] 03/01/2019 12:26:44 AM [facility] XR SKULL LIMITED [id number] RESULTInterp reted by:CAROLIN JulianROCEDRIVAS INFORMATION: Exam: XR Skull, Less Than 4 Views Exam date and time: 02/28/2019 11:52 PM Age: 28 years old Clinical indication: Illness, unspecified; Device placement; Cerebral fluid drainiage device or shunt; Patient HX: PT C/O pain on left side of head; Additional info: Calculus Professor shunt TECHNIQUE: Imaging protocol: XR of the skull, less than 4 views. COMPARISON: CR XR SKULL LIMITED [id number] 10/16/2018 1:48 AM FINDINGS: Sinuses: Well aerated. No opacification. Bones/joints: 2 views were obtained. No acute bone abnormalities are seen.Bilateral ventricular peritoneal shunts is seen in the left and right side of the posterior skull extending into the central brain. The shunt tubes are intact bilaterally throughout their course. No interval changes are seen compared to prior examination.Soft tissues: Unremarkable. IMPRESSION: Intact bilateral ventriculoperitoneal shuntTHIS DOCUMENT HAS BEEN ELECTRONICALLY SIGNED BY KALEN OLIVIER MDThis document has been electronically signed by Kalen Olivier MD on 03/01/2019 12:26 AM Name Value Range Interpretation Code Description Data Shelbi rce(s) Supporting Document(s) ID Date Data Source [id number] 03/06/2019 10:53:45 AM [facility] Service Cmnt XXX-Imp : Specimen source n ot given.Microorganism XXX Cult : No growth (qualifier value) Name Value Range Interpretation Code Description Data Shelbi rce(s) Supporting Document(s) ID Date Data Source [id number] 03/06/2019 10:53:45 AM [facility] Service [facility] XXX-Imp : Specimen source n ot given.Microorganism XXX Cult : No growth (qualifier value) Name Value Range Interpretation Code Description Data Shelbi rce(s) Supporting Document(s) ID Date Data Source [id number] 02/28/2019 11:24:02 PM [facility] Value Range Interpretation Code Description Data Shelbi rce(s) Supporting Document(s) Choriogonadotropin.beta subunit free [Units/volume] in Serum or Plasm a <5 [facility] (NOTE)Levels between 5 and 25 [IU]/L may indicate earlypregnancy and should be repeated after 48 hours. ID Date Data Source [id number] 02/28/2019 11:15:19 PM [facility] Name Value Range Interpretation Code Description Data Shelbi rce(s) Supporting Document(s) C reactive protein [Mass/volume] in Serum or Plasma <8.0 [facility] ID Date Data Source [id number] 02/28/2019 11:25:08 PM [facility] Name Value Range Interpretation Code Description Data Shelbi rce(s) Supporting Document(s) Erythrocyte sedimentation rate 21 mm/hr <20 H [facility] ID Date Data Source [id number] 02/28/2019 11:26:17 PM [facility] Value Range Interpretation Code Description Data Shelbi rce(s) Supporting Document(s) Leukocytes [#/volume] in Blood by Automated count 11.4 10*3/uL 4-10 H [facility] Erythrocytes [#/volume] in Blood by Automated count 4.71 10*6/uL 4.1- 5.3 [facility] Hemoglobin [Mass/volume] in Blood 14.0 g/dL 11.5-15.5 [facility] Hematocrit [Volume Fraction] of Blood by Automated count 42.4 % 3 6-45 [facility] Erythrocyte mean corpuscular volume [Entitic volume] by Auto mated count 90.2 fL 80-96 [facility] Erythrocyte mean corpuscular hemoglobin [Entitic mass] by Automated count 29.8 pg 27-33 [facility] Erythrocyte mean corpuscular hemoglobin concentration [Mass/volume] by Automated count 33.1 g/dL 32.0-36.0 [facility] distribution width [Ratio] by Automated count 14.0 % 11.5-14.5 [facility] Platelets [#/volume] in Blood by Automated count 360 10*3/uL 150-400 [facility] Differential cell count method - Blood [facility] Neutrophils/100 leukocytes in Blood by Automated count 66 % [facility] Lymphocytes/100 leukocytes in Blood by Automated count 23 % [facility] Monocytes/100 leukocytes in Blood by Automated count 9 % [facility] Eosinophils/100 leukocytes in Blood by Automated count 1 % [facility] Basophils/100 leukocytes in Blood by Automated count 1 % [facility] Neutrophils [#/volume] in Blood by Automated count 7.66 10*3/uL 1.8-7 .0 H [facility] Lymphocytes [#/volume] in Blood by Automated count 2.62 10*3/uL 1.2-4 .0 [facility] Monocytes [#/volume] in Blood by Automated count 0.98 10*3/uL 0-0.8 H [facility] Eosinophils [#/volume] in Blood by Automated count 0.12 10*3/uL 0-0.5 [facility] Basophils [#/volume] in Blood by Automated count 0.08 10*3/uL 0-0.2 [facility] Nucleated erythrocytes/100 leukocytes [Ratio] in Blood by Automated count 0 /100{WBCs} 0-0 [facility] ID Date Data Source [id number] 02/28/2019 11:50:20 PM [facility] Name Value Range Interpretation Code Description Data Shelbi rce(s) Supporting Document(s) Bicarbonate [Moles/volume] in Serum 20 mmol/L 22-29 L [facility] Chloride [Moles/volume] in Serum or Plasma 101 mmol/L 98-107 [facility] Creatinine [Mass/volume] in Serum or Plasma 0.64 mg/dL 0.50-0.90 [facility] Glucose [Mass/volume] in Serum or Plasma 88 mg/dL 70-140 [facility] Potassium [Moles/volume] in Serum or Plasma 3.5 mmol/L 3.4-5.1 [facility] Sodium [Moles/volume] in Serum or Plasma 138 mmol/L 136-145 [facility] Urea nitrogen [Mass/volume] in Serum or Plasma 17 mg/dL 6-20 [facility] Anion gap 3 in Serum or Plasma 17 mmol/L 8-15 H [facility] Osmolality of Serum or Plasma by calculation 287 mosm/kg 275-300 [facility] Creatinine/Urea nitrogen [Mass Ratio] in Serum or Plasma 27 [facility] Calcium [Mass/volume] in Serum or Plasma 9.2 mg/dL 8.6-10.0 [facility] Glomerular filtration rate/1.73 sq M pre dicted among non-blacks [Volume Rate/Area] in Serum or Plasma by Creatinine-based formula (MDRD) >6 0 [facility] Glomerular filtration rate/1.73 sq M pre dicted among blacks [Volume Rate/Area] in Serum or Plasma by Creatinine-based formula (MDRD) >60 [facility] ID Date Data Source [id number] 02/28/2019 11:50:20 PM [facility] Name Value Range Interpretation Code Description Data Shelbi rce(s) Supporting Document(s) C reactive protein [Mass/volume] in Serum or Plasma 5.5 mg/L <8.0 [facility] ID Date Data Source [id number] 03/01/2019 03:59:07 AM [facility] Name Value Range Interpretation Code Description Data Shelbi rce(s) Supporting Document(s) Thyrotropin [Units/volume] in Serum or Plasma 3.190 u[IU]/mL 0.270-4. 200 [facility] ID Date Data Source [id number] 02/28/2019 08:12:00 PM EST [facility] Patient: NIMA DIAZ Observation Re port - [facility].VisitID: [id number] [place] [address] [phone], FRegistration Date/Time: 02/28/2019 15:26 Weight:108.8 kg (S). Height/Length:62 inches (S). BMI:43.9 FAMILY HISTORYNo significant family medical history. (Electronically signed by Austin Davidson PA 02/28/2019 18:42) Name Value Range Interpretation Code Description Data [facility](s) Supporting Document(s) ID Date Data Source [id number] 02/28/2019 05:26:00 PM EST [facility] DATE OF EXAMINATION: 02/28/2019 16:[address] BRAIN W/O CONTRAST HISTORY: Vomiting and headaches. COMPARISON: 10/05/2018 TECHNIQUE: This CT exam was performed using the following dose reduction techniques:automatic exposure control, adjustment of mA and/or kV according to thepatient's size, and use of iterative reconstruction technique. Standard contiguous axial spiral imaging was obtained from the skull basethrough the vertex without contrast administration and with coronalreformatting. FINDINGS: Bilateral ventriculoperitoneal shunts extend into the collapsed lateralventricles via frontal approach. Ventricles, sulci, and cisterns are symmetricand normal. Roa-white differentiation is maintained. No acute intracranialhemorrhage, mass or mass effect. No extra-axial fluid collection. IMPRESSION:1. Stable appearance of bilateral ventriculoperitoneal shunts extending intothe lateral ventricles.2. No acute intracranial pathology appreciated. Electronically signed in [id number] by: Deondre Beatty M.D. 02/28/2019 17:20 EST Name Value Range Interpretation Code Description Data [facility](s) Supporting Document(s) ID Date Data Source [id number] 02/28/2019 05:32:00 PM EST [facility] TSYSORDER [id number] Name Value Range Interpretation Code Description Data [facility](s) Supporting Document(s) GLUCOSE 99 mg/dL 74-106 [facility] BLOOD UREA NITROGEN 17 mg/dL 7-18 [facility] ital CREATININE 0.7 mg/dL 0.6-1.0 [facility] SODIUM 140 mmol/L 136-145 [facility] POTASSIUM 3.8 mmol/L 3.5-5.1 [facility] CHLORIDE 102 mmol/L 98-107 [facility] CO2 23 mmol/L 21-32 [facility] CALCIUM 9.7 mg/dL 8.5-10.1 [facility] ANION GAP 15.0 mmol/L 5-[address] [facility] GLOMERULAR FILTRATION RATE >90 mL/min [facility] GFR IS CALCULATED IN mL/min/1.73m2 JESICA L FUNCTION: >90MILDLY DECREASED: 60-89MILDY TO MODERATELY DECREASED: 45-59 MODERATELY TO SEVERELY DECREASED: 30-44SEVERELY DECREASED: 15-29RENAL FAILURE: <15 AST 39 U/L 15-[address] [facility] ALT 71 U/L 12-78 [facility] ALKALINE PHOSPHATASE 89 U/L 46-116 [facility] TOTAL BILIRUBIN 0.3 mg/dL 0.2-1.0 [facility] TOTAL PROTEIN 7.9 g/dl 6.4-8.2 [facility] ALBUMIN 4.1 gm/dL 3.4-5.0 [facility] ID Date Data Source [id number] 02/28/2019 05:19:00 PM [facility] TSYSORDER [id number] Name Value Range Interpretation Code Description Data Shelbi rce(s) Supporting Document(s) WHITE BLOOD COUNT 11.1 K/mm3 4.0-10.0 H [facility] tuyet RED BLOOD COUNT 4.81 M/mm3 4.00-5.50 [facility] HEMOGLOBIN 14.0 gm/dL 12.0-16.0 [facility] HEMATOCRIT 42.7 % 36.0-48.8 [facility] MEAN CELL VOLUME 88.8 fl 80-96 [facility] MEAN CORPUSCULAR HEMOGLOBIN 29.1 pg 27.0-31.0 [facility] MEAN CORPUSCULAR HGB CONC 32.8 g/dl 32.0-36.0 [facility] RED CELL DISTRIBUTION WIDTH 12.8 % 10.0-14.5 [facility] PLATELET COUNT 371 K/mm3 172-450 [facility] MEAN PLATELET VOLUME 9.7 fl 9.0-13.0 [facility] pital GRAN % 75.3 % 50-80.0 [facility] IG% 0.2 % 0.0-0.2 [facility] LYMPH % 16.4 % 25.0-50.[address] [facility] MONO % 6.7 % 2.0-10.0 [facility] EOS % 1.0 % 0-5.0 [facility] BASO % 0.4 % 0.0-2.0 [facility] GRAN # 8.4 K/mm3 2.0-8.[address] [facility] IG# 0.0 K/mm3 0.0-0.2 [facility] LYMPH # 1.8 K/mm3 1.0-5.0 [facility] MONO # 0.7 K/mm3 0.10-1.20 [facility] EOS # 0.1 K/mm3 0.0-0.5 [facility] BASO # 0.0 K/mm3 0.0-0.2 [facility] Procedure Social History Code Duration Value Status Description Data Source(s ) 04/04/2020 09:49:37 PM EST No completed No [facility] 04/04/2020 09:49:37 PM EST Yes completed Yes [facility] 04/04/2020 09:49:37 PM EST Never smoker completed Never [facility] Smoking 04/04/2020 09:49:00 PM EST Never smoker completed Never [facility] Alcohol intake 09/11/2019 12:00:00 AM EDT Current drinker of al cohol (finding) completed Current drinker of alcohol (finding) [facility] Tobacco use and exposure 09/11/2019 12:00:00 AM EDT Never used co mpleted Never used [facility] Smoking 09/11/2019 12:00:00 AM EDT Never smoker completed Never [facility] Smoking 09/11/2019 12:00:00 AM EDT Never smoker completed Never [facility] Alcohol intake 09/04/2019 12:00:00 AM EDT Current drinker of al cohol (finding) completed Current drinker of alcohol (finding) [facility] Smoking 09/04/2019 12:00:00 AM EDT Never smoker completed Never [facility] Smoking 09/03/2019 12:00:00 AM EDT Patient has never smoked co mpleted Patient has never smoked [facility] ([facility] Alcohol intake 08/31/2019 12:00:00 AM EDT Current drinker of al cohol (finding) completed Current drinker of alcohol (finding) [facility] Smoking 08/31/2019 12:00:00 AM EDT Never smoker completed Never [facility] Alcohol intake 08/29/2019 12:00:00 AM EDT Current drinker of al cohol (finding) completed Current drinker of alcohol (finding) [facility] Smoking 08/29/2019 12:00:00 AM EDT Never smoker completed Never s [facility] Alcohol intake 07/22/2019 12:00:00 AM EDT Current drinker of al cohol (finding) completed Current drinker of alcohol (finding) [facility] Smoking 07/22/2019 12:00:00 AM EDT Never smoker completed Never s [facility] Alcohol intake 04/08/2019 12:00:00 AM EST Current drinker of al cohol (finding) completed Current drinker of alcohol (finding) [facility] Smoking 04/08/2019 12:00:00 AM EST Never smoker completed Never s [facility] Alcohol intake 02/28/2019 12:00:00 AM EST Current drinker of al cohol (finding) completed Current drinker of alcohol (finding) [facility] Smoking 02/28/2019 12:00:00 AM EST Never smoker completed Never s [facility] Vital Signs ID Date Data Source UNK Name Value Range Interpretation Code Description Data Source(s) Body surface area Derived from formula 2.05 m2 2.[address] [facility] Body mass index (BMI) [Ratio] 43.4 kg/m2 43.4 k g/m2 [facility] ([facility]) Body height 62 [in_i] 62 [in_i] [facility] ([facility]) 5'2" Body weight 107.532 kg 107.532 kg [facility] ([facility]) Body weight 237.06 [lb_av] 237.06 [lb_av] [facility] ([facility]) Oxygen saturation in Arterial blood by Pulse oximetry 99 % 99 % [facility] ([facility]) Respiratory rate 18 /min 18 /min [facility] ( [facility]) Body temperature 98.1 [degF] 98.1 [degF] [facility] Heart rate 118 /min 118 /min [facility] ([facility]) Diastolic blood pressure 89 mm[Hg] 89 mm[Hg] [facility] ([facility]) Systolic blood pressure 136 mm[Hg] 136 mm[Hg] [facility] Oxygen saturation in Arterial blood by Pulse oximetry 99 % 99 % [facility] ([facility]) Body mass index (BMI) [Ratio] 43.5 kg/m2 43.5 k g/m2 [facility] ([facility]) Body weight 241.50 [lb_av] 241.50 [lb_av] [facility] ([facility]) Body height 62.5 [in_i] 62.5 [in_i] [facility] ([facility]) 5'2.50" Heart rate 97 /min 97 /min [facility] ([facility]) Diastolic blood pressure 74 mm[Hg] 74 mm[Hg] [facility] ([facility]) Systolic blood pressure 122 mm[Hg] 122 mm[Hg] [facility] ([facility]) Oxygen saturation in Arterial blood by Pulse oximetry 97 % 97 % [facility] ([facility]) Body mass index (BMI) [Ratio] 43.1 kg/m2 43.1 k g/m2 [facility] ([facility]) Body weight 239.50 [lb_av] 239.50 [lb_av] [facility] ([facility]) Body height 62.5 [in_i] 62.5 [in_i] [facility] ([facility]) 5'2.50" Heart rate 143 /min 143 /min [facility] ([facility]) Diastolic blood pressure 92 mm[Hg] 92 mm[Hg] [facility] ([facility]) Systolic blood pressure 140 mm[Hg] 140 mm[Hg] M [facility] ([facility]) ID Date Data Source [id number] 02/25/2020 12:27:59 PM [facility] Name Value Range Interpretation Code Description Data Source(s) WEIGHT RECORDED 233.00 pounds 233.00 pounds [facility] Height [address] [facility] ID Date Data Source [id number] 12/25/2019 02:57:38 PM EDT [facility] Name Value Range Interpretation Code Description Data Source(s) TRANSFER FROM [facility] ID Date Data Source [id number] 08/29/2019 10:58:03 AM EDT [facility] Name Value Range Interpretation Code Description Data Source(s) WEIGHT RECORDED 225 lb 225 lb [facility] Body height Measured [address] [facility] ID Date Data Source [id number] 08/03/2019 09:04:51 PM [facility] Name Value Range Interpretation Code Description Data Source(s) WEIGHT RECORDED 230 lb 230 lb [facility] Body height Measured [address] [facility] ID Date Data Source [id number] 04/16/2019 11:51:47 AM [facility] Name Value Range Interpretation Code Description Data Source(s) WEIGHT RECORDED 200 lb 200 lb [facility] Body height Measured [address] [facility] Patient Treatment Plan of Care Planned Activity Planned Date Details Description Data Source (s) Oxycodone Hydrochloride 10 MG Oral Tablet 02/19/2020 12:00:00 AM [facility] Oxycodone Hydrochloride 10 MG Oral Tablet 01/26/2020 12:00:00 AM [facility] tizanidine 4 MG Oral Capsule 12/22/2019 12:00:00 AM [facility] Hyoscyamine Sulfate 0.125 MG Oral Tablet 12/22/2019 12:00:00 AM [facility] Baclofen 10 MG Oral Tablet 12/22/2019 12:00:00 AM [facility] Cyclobenzaprine hydrochloride 10 MG Oral Tablet 12/22/2019 12:00:00 AM [facility] Ondansetron 8 MG Disintegrating Oral Tablet 12/22/2019 12:00:00 AM [facility] Oxycodone Hydrochloride 10 MG Oral Tablet 12/22/2019 12:00:00 AM [facility] Hyoscyamine Sulfate 0.125 MG Oral Tablet 12/08/2019 12:00:00 AM [facility] Ondansetron 4 MG Disintegrating Oral Tablet 12/04/2019 12:00:00 AM [facility] Oxycodone Hydrochloride 10 MG Oral Tablet 11/25/2019 12:00:00 AM [facility] Ondansetron 8 MG Disintegrating Oral Tablet 11/24/2019 12:00:00 AM [facility] Baclofen 10 MG Oral Tablet 11/24/2019 12:00:00 AM [facility] Oxycodone Hydrochloride 10 MG Oral Tablet 11/24/2019 12:00:00 AM [facility] Hyoscyamine Sulfate 0.125 MG Oral Tablet 11/17/2019 12:00:00 AM [facility] Acetaminophen 325 MG / Hydrocodone Bitartrate 5 MG Ora l Tablet 11/17/2019 12:00:00 AM [facility] Naltrexone hydrochloride 50 MG Oral Tablet 11/12/2019 12:00:00 AM E [facility] gabapentin 600 MG Oral Tablet 11/12/2019 12:00:00 AM [facility] Trazodone Hydrochloride 100 MG Oral Tablet 11/12/2019 12:00:00 AM E [facility] Clonidine Hydrochloride 0.1 MG Oral Tablet 11/12/2019 12:00:00 AM E [facility] [facility] olanzapine 10 MG Oral Tablet 11/12/2019 12:00:00 AM [facility] Metoclopramide 10 MG Oral Tablet 11/12/2019 12:00:00 AM [facility] Hyoscyamine Sulfate 0.125 MG Sublingual Tablet 11/12/2019 12:00:00 AM [facility] Buprenorphine 8 MG Sublingual Tablet 11/12/2019 12:00:00 AM [facility] Oxycodone Hydrochloride 10 MG Oral Tablet 11/12/2019 12:00:00 AM [facility] Hyoscyamine Sulfate 0.125 MG Oral Tablet 09/11/2019 12:00:00 AM [facility] tizanidine 4 MG Oral Tablet 09/11/2019 12:00:00 AM [facility] Acetaminophen 325 MG / Hydrocodone Bitartrate 5 MG Ora l Tablet 09/11/2019 12:00:00 AM [facility] tizanidine 4 MG Oral Tablet 09/04/2019 12:00:00 AM [facility] Hyoscyamine Sulfate 0.125 MG Oral Tablet 09/04/2019 12:00:00 AM [facility] Acetaminophen 300 MG / Hydrocodone Bitartrate 5 MG Ora l Tablet 09/04/2019 12:00:00 AM [facility] Acetaminophen 300 MG / Hydrocodone Bitartrate 5 MG Ora l Tablet 08/29/2019 12:00:00 AM [facility] Trazodone Hydrochloride 100 MG Oral Tablet 08/27/2019 12:00:00 AM E [facility] Diclofenac Sodium 75 MG Delayed Release Oral Tablet 08/27/19 12:00:00 AM [facility] sennosides, JAIL 8.6 MG Oral Tablet 07/23/2019 12:00:00 AM [facility] Acetaminophen 325 MG / Hydrocodone Bitartrate 5 MG Ora l Tablet 07/23/2019 12:00:00 AM [facility] sennosides, JAIL 8.6 MG Oral Tablet 07/22/2019 10:00:00 PM [facility] ondansetron (ZOFRAN) injection 4 mg 07/22/2019 01:00:00 PM [facility] Acetaminophen 325 MG / Hydrocodone Bitartrate 5 MG Ora l Tablet 04/08/2019 12:00:00 AM [facility] Ondansetron 4 MG Disintegrating Oral Tablet 03/01/2019 12:00:00 AM [facility] Acetaminophen 325 MG / Oxycodone Hydrochloride 5 MG Or al Tablet 08/27/2017 12:00:00 AM [facility] tramadol hydrochloride 50 MG Oral Tablet [facility] Ondansetron 4 MG Disintegrating Oral Tablet [facility] Cyclobenzaprine hydrochloride 10 MG Oral Tablet [facility] buspirone hydrochloride 5 MG Oral Tablet [facility] Metoclopramide 10 MG Oral Tablet [facility] tizanidine 4 MG Oral Tablet [facility] tizanidine 4 MG Oral Tablet [facility] 24 HR Metformin hydrochloride 750 MG Extended Release Oral Tablet [facility]
[2020-04-20 02:12] LABS: BASO # 0.1 10^3/uL (0.0-0.2); BASO % 0.7 % (0.0-1.0); EOS # 0.3 10^3/uL (0.0-0.5); EOS % 2.6 % (0.0-3.0); HEMATOCRIT 40.8 % (36.0-47.0); HEMOGLOBIN 12.7 g/dl (12.0-15.5); LYMPH # 2.8 10^3/uL (1.5-5.0); LYMPH % 26.2 % (24.0-44.0); MEAN CORPUSCULAR HEMOGLOBIN 30.2 pg (27.0-33.0); MEAN CORPUSCULAR HGB CONC 31.1 g/dl (32.0-36.5); MEAN CORPUSCULAR VOLUME 97.1 fl (80.0-96.0); MONO # 0.7 10^3/uL (0.0-0.8); MONO % 6.3 % (0.0-8.0); NEUTROPHILS # 6.8 10^3/uL (1.5-8.5); NEUTROPHILS % 63.5 % (36.0-66.0); PLATELET COUNT, AUTOMATED 351 10^3/uL (150-450); WHITE BLOOD COUNT 10.8 10^3/uL (4.0-10.0)
[2020-04-20] MEDS ORDERED: ONDANSETRON 4MG/2ML VIAL IV ONE (02:15)
[2020-04-20 02:27] LABS: INR 0.98; PROTHROMBIN TIME 13.2 SECONDS (12.5-14.3)
[2020-04-20 02:28] LABS: PARTIAL THROMBOPLASTIN TIME 28.6 SECONDS (24.2-38.5)
[2020-04-20 02:57] LABS: ALBUMIN 3.1 GM/DL (3.2-5.2); ALT/SGPT 17 U/L (12-78); BILIRUBIN,DIRECT < 0.1 MG/DL (0.0-0.2); BILIRUBIN,TOTAL 0.2 MG/DL (0.2-1.0); BLOOD UREA NITROGEN 13 MG/DL (7-18); CALCIUM LEVEL 8.4 MG/DL (8.5-10.1); CARBON DIOXIDE LEVEL 23 MEQ/L (21-32); CHLORIDE LEVEL 109 MEQ/L (98-107); CREATININE FOR GFR 0.64 MG/DL (0.55-1.30); GLOMERULAR FILTRATION RATE > 60.0 (>60); GLUCOSE, FASTING 100 MG/DL (70-100); LIPASE 244 U/L (73-393); POTASSIUM SERUM 4.6 MEQ/L (3.5-5.1); SODIUM LEVEL 140 MEQ/L (136-145); TOTAL PROTEIN 6.5 GM/DL (6.4-8.2)
--- OUTSIDE RECORDS SUMMARY | 2020-04-20 03:01 | CCD ---
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 Name Role Phone Guera WALLACE MD Unavailable [...] Unavailable SHONA, Jatinder RILEY MD Unavailable Unavailable SHNOA, Jatinder RILEY MD Unavailable Unavailable SHONA, Jatinder RILEY MD Unavailable Unavailable SHONA, Jatinder RILEY MD Unavailable Unavailable SHONA, Jatinder RILEY MD Unavailable Unavailable SHONA, Jatinder RILEY MD Unavailable Unavailable SHONA, Jatinder RILEY MD Unavailable Unavailable SHONA, Jatinder RILEY MD Unavailable Unavailable SHONA, Jatinder RILEY MD Unavailable Unavailable COOK, B LAURA HOUSEHOLD APPLIANCES SALESPERSON Unavailable Unavailable COOK, B LAURA HOUSEHOLD APPLIANCES SALESPERSON Unavailable Unavailable COOK, B LAURA HOUSEHOLD APPLIANCES SALESPERSON Unavailable Unavailable COOK, B LAURA HOUSEHOLD APPLIANCES SALESPERSON Unavailable Unavailable COOK, B LAURA HOUSEHOLD APPLIANCES SALESPERSON Unavailable Unavailable COOK, B LAURA HOUSEHOLD APPLIANCES SALESPERSON Unavailable Unavailable COOK, B LAURA HOUSEHOLD APPLIANCES SALESPERSON Unavailable Unavailable COOK, B LAURA HOUSEHOLD APPLIANCES SALESPERSON Unavailable Unavailable COOK, B LAURA HOUSEHOLD APPLIANCES SALESPERSON Unavailable Unavailable COOK, B LAURA HOUSEHOLD APPLIANCES SALESPERSON Unavailable Unavailable COOK, B LAURA HOUSEHOLD APPLIANCES SALESPERSON Unavailable Unavailable COOK, B LAURA HOUSEHOLD APPLIANCES SALESPERSON Unavailable Unavailable COOK, B LAURA HOUSEHOLD APPLIANCES SALESPERSON Unavailable Unavailable COOK, B LAURA HOUSEHOLD APPLIANCES SALESPERSON Unavailable Unavailable COOK, B LAURA HOUSEHOLD APPLIANCES SALESPERSON Unavailable Unavailable COOK, B LAURA HOUSEHOLD APPLIANCES SALESPERSON Unavailable Unavailable COOK, B LAURA HOUSEHOLD APPLIANCES SALESPERSON Unavailable Unavailable COOK, B LAURA HOUSEHOLD APPLIANCES SALESPERSON Unavailable Unavailable COOK, B LAURA HOUSEHOLD APPLIANCES SALESPERSON Unavailable Unavailable COOK, B LAURA HOUSEHOLD APPLIANCES SALESPERSON Unavailable Unavailable COOK, B LAURA HOUSEHOLD APPLIANCES SALESPERSON Unavailable Unavailable COOK, B LAURA HOUSEHOLD APPLIANCES SALESPERSON Unavailable Unavailable COOK, B LAURA HOUSEHOLD APPLIANCES SALESPERSON Unavailable Unavailable COOK, B LAURA HOUSEHOLD APPLIANCES SALESPERSON Unavailable Unavailable COOK, B LAURA HOUSEHOLD APPLIANCES SALESPERSON Unavailable Unavailable COOK, B LAURA HOUSEHOLD APPLIANCES SALESPERSON Unavailable Unavailable COOK, B LAURA HOUSEHOLD APPLIANCES SALESPERSON Unavailable Unavailable COOK, B LAURA HOUSEHOLD APPLIANCES SALESPERSON Unavailable Unavailable COOK, B LAURA HOUSEHOLD APPLIANCES SALESPERSON Unavailable Unavailable COOK, B LAURA HOUSEHOLD APPLIANCES SALESPERSON Unavailable Unavailable COOK, B LAURA HOUSEHOLD APPLIANCES SALESPERSON Unavailable Unavailable COOK, B LAURA HOUSEHOLD APPLIANCES SALESPERSON Unavailable Unavailable COOK, B LAURA HOUSEHOLD APPLIANCES SALESPERSON Unavailable Unavailable COOK, B LAURA HOUSEHOLD APPLIANCES SALESPERSON Unavailable Unavailable COOK, B LAURA HOUSEHOLD APPLIANCES SALESPERSON Unavailable Unavailable COOK, B LAURA HOUSEHOLD APPLIANCES SALESPERSON Unavailable Unavailable COOK, B LAURA HOUSEHOLD APPLIANCES SALESPERSON Unavailable Unavailable COOK, B LAURA HOUSEHOLD APPLIANCES SALESPERSON Unavailable Unavailable COOK, B LAURA HOUSEHOLD APPLIANCES SALESPERSON Unavailable Unavailable COOK, B LAURA HOUSEHOLD APPLIANCES SALESPERSON Unavailable Unavailable COOK, B LAURA HOUSEHOLD APPLIANCES SALESPERSON Unavailable Unavailable COOK, B LAURA HOUSEHOLD APPLIANCES SALESPERSON Unavailable Unavailable COOK, B LAURA HOUSEHOLD APPLIANCES SALESPERSON Unavailable Unavailable COOK, B LAURA HOUSEHOLD APPLIANCES SALESPERSON Unavailable Unavailable COOK, B LAURA HOUSEHOLD APPLIANCES SALESPERSON Unavailable Unavailable COOK, B LAURA HOUSEHOLD APPLIANCES SALESPERSON Unavailable Unavailable COOK, B LAURA HOUSEHOLD APPLIANCES SALESPERSON Unavailable Unavailable COOK, B LAURA HOUSEHOLD APPLIANCES SALESPERSON Unavailable Unavailable COOK, B LAURA HOUSEHOLD APPLIANCES SALESPERSON Unavailable Unavailable COOK, B LAURA HOUSEHOLD APPLIANCES SALESPERSON Unavailable Unavailable COOK, B LAURA HOUSEHOLD APPLIANCES SALESPERSON Unavailable Unavailable COOK, B LAURA HOUSEHOLD APPLIANCES SALESPERSON Unavailable Unavailable COOK, B LAURA HOUSEHOLD APPLIANCES SALESPERSON Unavailable Unavailable COOK, B LAURA HOUSEHOLD APPLIANCES SALESPERSON Unavailable Unavailable COOK, B LAURA HOUSEHOLD APPLIANCES SALESPERSON Unavailable Unavailable COOK, B LAURA HOUSEHOLD APPLIANCES SALESPERSON Unavailable Unavailable COOK, B LAURA HOUSEHOLD APPLIANCES SALESPERSON Unavailable Unavailable COOK, B LAURA HOUSEHOLD APPLIANCES SALESPERSON Unavailable Unavailable COOK, B LAURA HOUSEHOLD APPLIANCES SALESPERSON Unavailable Unavailable COOK, B LAURA HOUSEHOLD APPLIANCES SALESPERSON Unavailable Unavailable COOK, B LAURA HOUSEHOLD APPLIANCES SALESPERSON Unavailable Unavailable COOK, B LAURA HOUSEHOLD APPLIANCES SALESPERSON Unavailable Unavailable COOK, B LAURA HOUSEHOLD APPLIANCES SALESPERSON Unavailable Unavailable COOK, B LAURA HOUSEHOLD APPLIANCES SALESPERSON Unavailable Unavailable JOY [id number], E SAGAR [id number] Unavailable Unavailabl e JOY [id number], E SAGAR [id number] Unavailable Unavailabl e JOY [id number], E SAGAR [id number] Unavailable Unavailabl e ALEXUS, SARAH AMOL PA [...] Unavailable Saira CHILEL MD Unavailable Unavailable [id number], [id number] Unavailable [phone] [facility]ENT_8646, [id number] Unavailable +[phone])- [phone] [facility]_8646, [id number] Unavailable +[phone])- 8 [facility]_8646, [id number] Unavailable +1(315)- 8 [facility]ENT_8646, [id number] Unavailable +[phone])- 8 [facility]_8646, [id number] Unavailable +1(315)- 8 [facility]_8646, [id number] Unavailable +[phone])- 8 [facility]ENT_8646, [id number] Unavailable +[phone])- 8 [facility]_8646, [id number] Unavailable +1(315)- 8 [facility]_8646, [id number] Unavailable +1(315)- 8 [facility]ENT_8646, [id number] Unavailable +[phone])- 8 [facility]ENT_8646, [id number] Unavailable +[phone])- 8 [facility]ENT_8646, [id number] Unavailable +1(315)- 8 MEDENT_8646, [id number] Unavailable +1(315)- 8 [facility]ENT_8646, [id number] Unavailable +1(315)- 8 MEDENT_8646, [id number] Unavailable +1(315)- 8 [facility]ENT_8646, [id number] Unavailable +1(315)- 8 [facility]ENT_8646, [id number] Unavailable +1(315)- 8 [facility]_8646, [id number] Unavailable +1(315)- 8 [facility]ENT_8646, [id number] Unavailable +1(315)- 8 MEDENT_8646, [id number] Unavailable +1(315)- 8 [facility]_8646, [id number] Unavailable +1(315)- 8 [facility]_8646, [id number] Unavailable +1(315)- 8 [facility]_8646, [id number] Unavailable +[phone])- 8 Davidson, W Austin RPA-C [...] Unavailable Unavailable SMITH HERNANDEZ MD Unavailable Unavailable [place] G Emili Unavailable Unavailable [place], G Emili Unavailable Unavailable [place], G Emili Unavailable Unavailable Jose Alejandro Núñez [...] Unavailable JEANIE, F CLYDE DO Unavailable Unavailable EJANIE, F CLYDE DO Unavailable Unavailable JEANIE, F [...] is protected by Article 27-F of the [facility] Public Health law. If you continue you may have access to information: Regarding HIV / AIDS; Provided by facilities licensed or operated by the [facility] Office of Mental Health; or Provided by the [facility] Office for People With Developmental Disabilities. If such information is present, then the following [facility] mandated warning applies: This information has [...] law may result in a fine or longterm sentence or both. A general authorization for the release of medical or other information is NOT sufficient authorization for further disc losure. Allergies and Adverse Reactions Type Description Substance Reaction Status Data Source(s ) Drug allergy acetazolamide acetazolamide Hives [facility] Drug allergy Sulfa (Sulfonamide Antibiotics) Sulfa (Sulfonamide Ant ibiotics) [facility] ENVIRONMENTAL BEE STING BEE STING [facility] CLASS SULFA (sulfonamide) SULFA (sulfonamide) [facility] Family History Family Member Name Family Member [...] Insane Unknown Condition Family Member ADHD U [facility] Unknown Condition [facility] Unknown Condition [facility] Unknown Condition [facility] Unknown Male Problem [facility] ([facility]) Unknown Unknown Problem [facility] ([facility]) Unknown Unknown Problem [facility] ([facility]) Encounters Encounter Providers Location Date Indications Data Source(s ) Emergency Attender: Maya Snyder MD 04/04 08:39:00 PM EST - 04/05/2020 12:30:00 AM EST ABDOMINAL PAIN, BLOOD IN URINE [facility] ABDOMINAL PAIN, BLOOD IN URINE Patient discharged. Outpatient Attender: Quinten Schroeder 03/25/2020 12:00: 00 AM EST Dysthymic disorder [facility] Dysthymic disorder Outpatient Attender: Quinten Schroeder 02/19/2020 12:00: 00 AM EST Dysthymic disorder [facility] Dysthymic disorder Outpatient Attender: ZAHIRA HESS MD 2019 07:30:00 AM [facility] - 02/17/2020 11:07:00 AM [facility] Patient discharged. Emergency Attender: AMOL BALBUENA EMERGENCY ROOM-ER 02/09/2020 06:07:00 PM [facility] - 02/09/2020 08:22:00 PM [facility] Patient discharged. Emergency Attender: HAZEL RIZO 02/06/20 11:25:00 PM [facility] - 02/06/2020 11:40:00 PM [facility] Patient discharged. Outpatient Attender: ZAHIRA HESS MD 2019 11:00:00 AM EST - 02/06/2020 11:00:00 AM [facility] Outpatient Attender: Quinten Schroeder 01/26/2020 12:00: 00 AM EST Dysthymic disorder [facility] Dysthymic disorder Outpatient Attender: Emili Berger 01/23/2020 12:00:00 A [facility] Outpatient Attender: Quinten SchroederAttender: Emili Berger 12/22/2019 12:00:00 AM EDT [facility] Emergency Attender: SMITH HERNANDEZ MDAttender: OSVALDO GEIGER MD 07A-ERMADULT 12/06/2019 12:00:00 AM EDT - 12/06/2019 01:16:00 PM EDT Other headache syndrome [facility] Other headache syndrome Patient discharged. Emergency Attender: INOCENCIO WILL MD 12/04 05:39:00 PM EDT - 12/05/2019 10:50:00 PM EDT [facility] Patient discharged. Outpatient Attender: Quinten Schroeder 12/05/2019 12:00:00 AM EDT [facility] Outpatient Attender: Quinten Schroeder 11/24/2019 12:00:00 AM EDT [facility] Outpatient Attender: Quinten SchroederAttender: Emili Berger 11/24/2019 12:00:00 AM EDT [facility] Emergency Attender: HUEY [facility]UENA EMERG[facility]Y ROOM-ER 11:38:00 PM EDT - 11/23/2019 12:51:00 AM [facility] Patient discharged. Outpatient Attender: Emili Berger 11/17/2019 12:00:00 A [facility] Outpatient Attender: Emili Berger 11/12/2019 12:00:00 A [facility] Emergency Attender: AMOL BALBUENA EMERGENCY ROOM-ER 09/16/2019 04:40:00 PM EDT - 09/16/2019 08:45:00 PM [facility] Patient discharged. Outpatient 09/12/2019 04:47:00 PM EDT [facility] Emergency Attender: INOCENCIO WILL MD 09/11 04:29:00 PM EDT - 09/12/2019 07:08:00 PM EDT [facility] Patient discharged. Outpatient Attender: Emili Berger 09/11/2019 12:00:00 A [facility] Outpatient Attender: Emili BergerAttender: Quinten Schroeder 09/04/2019 12:00:00 AM T [facility] Outpatient Attender: LAURA MERCADO NP Physical Therapy 09/03/2019 1 1:30:00 AM EDT [facility] ([facility]) Outpatient Attender: Quinten Schroeder 08/29/2019 12:00:00 AM EDT [facility] Outpatient 08/27/2019 05:55:00 AM EDT [facility] Outpatient Attender: Quinten Schroeder 08/27/2019 12:00: 00 AM EDT Dysthymic disorder [facility] Dysthymic disorder Outpatient Attender: Quinten Schroeder 08/13/2019 12:00:00 AM EDT [facility] Outpatient Attender: SAURAV TORRES MDReferrer: SAURAV TORRES MD 07/22/2019 12:00:00 AM EDT [facility] Outpatient 07/22/2019 12:00:00 AM EDT [facility] Outpatient Attender: EMILI BEDOYA MDReferrer: EMILI SOLIZ MD 07/22/2019 12:00:00 AM EDT [facility] Emergency Attender: AMOL BAL[facility]NA EMERG[facility] RO[facility] RGENCY [facility]OM 07/21/2019 01:04:00 PM EDT - 07/21/2019 01:04:00 PM EDT [facility] Patient discharged. Outpatient Attender: BAKARI STERLING MD Attender: NURA CANTU MDAttender: SAURAV TORRES MDAttender: EMILI BEDOYA MDAttender: Randy Pardo MDAdmitter: SAURAV TORRES MDReferrer: SAURAV TORRES MD [id number]-[id number] 07/21/2019 12:00:00 AM EDT - 07/23/2019 02:52:00 PM EDT Benign intracranial hypertension [facility] Benign intracranial hypertension Patient discharged. Outpatient 07/16/2019 05:34:00 AM EDT [facility] Emergency Referrer: INOCENCIO WILL MD 07/05 08:44:00 PM EDT - 07/07/2019 08:46:00 AM EDT [facility]ASS FURNACE TENDER shunt trauma [facility] GLASS FURNACE TENDER shunt trauma Outpatient 07/06/2019 06:27:00 PM EDT [facility] Emergency Attender: INOCENCIO WILL MD 07/05 06:01:00 PM EDT - 07/06/2019 09:17:00 PM EDT [facility] Patient discharged. Outpatient 06/25/2019 05:07:00 AM EDT [facility] Outpatient 06/19/2019 01:06:00 PM EDT [facility] Emergency Attender: ISABEL AZAR 2019 12:28:00 PM EDT - 06/19/2019 03:36:00 PM EDT [facility] Patient discharged. Emergency Attender: AMOL BALBUENA [facility] RGENCY ROOM 06/09/2019 06:00:00 PM EDT - 06/09/2019 06:00:00 PM EDT [facility] Patient discharged. Outpatient Attender: LAURA MERCADO NP Physical Therapy 04/15/2019 1 2:45:00 PM EST [facility] ([facility]) Outpatient 04/12/2019 09:05:00 PM [facility] Emergency Attender: CLYDE WARE DO 2019 07:48:00 PM EST - 04/12/2019 11:03:00 PM [facility] Patient discharged. Emergency Attender: Clyde Dotson MDAttender: BRENDA MG MD 07A-ADULTERM 04/08/2019 12:00:00 AM EST - 04/08/2019 10:24:00 AM [facility] Other general symptoms and signs [facility] Other general symptoms and signs Patient discharged. Emergency Attender: HUEY BAL[facility]UENA EMERGENCY ROOM-ER 06:55:00 PM EST - 04/07/2019 09:45:00 PM [facility] Patient discharged. Outpatient Attender: VALDO MELGARReferrer: Maxwell Núñez MD 03/31/2019 08:39:00 AM [facility] - 03/31/2019 08:39:00 AM [facility] Outpatient Attender: VALDO MELGARReferrer: Maxwell Núñez MD 03/25/2019 07:47:00 AM [facility] - 03/25/2019 07:47:00 AM [facility] Outpatient Attender: ROSANA BALBUENA 03/13 09:14:00 AM [facility] - 03/13/2019 09:14:00 AM [facility] Outpatient Attender: VALDO MELGARReferrer: Maxwell Núñez MD 03/11/2019 12:31:00 PM [facility] - 03/11/2019 12:31:00 PM [facility] Emergency Attender: Renzo Nowak PA-C 01:42:00 PM EST - 03/04/2019 05:05:00 PM [facility] Patient discharged. Emergency Attender: Austin Davidson RPA-CReferrer: [phone] EMERGENCY ROOM-ER 02/28/2019 03:47:00 PM EST - 02/28/2019 08:10:00 PM [facility] Patient discharged. Emergency Attender: Ace Murraydevanender: SAGAR ROSENTHAL [phone] [id number] 07A-ERMADULT 02/28/2019 12:00:00 AM EST - 03/01/2019 05:07:00 AM EST Cervicalgia [facility] Cervicalgia Patient discharged. Medications Medication Brand Name Start Date Product Form Dose Route Admi nistrative Instructions Pharmacy Instructions Status Indications Reaction Description Data Source(s) Ondansetron 4 MG Disintegrating Oral Tablet Ondansetron 04/04/2020 09:11:38 PM EST 8 MG active [facility] topiramate 200 MG Oral Tablet Topiramate (Topamax) 200 mg tablet Topiramate (Topamax) 200 mg tablet 04/04/2020 09:11:38 PM EST 200 MG [facility] Hyoscyamine Sulfate 0.125 MG Sublingual Tablet Hyoscyamine S ulfate 04/04/2020 09:11:38 PM EST 0.125 MG active [facility] Acetaminophen 325 MG Oral Tablet Acetaminophen 04/04/2020 09:11:38 PM EST 975 MG active [facility] Furosemide 20 MG Oral Tablet Furosemide 04/04/2020 09:11:38 PM EST 20 MG active [facility] Oxycodone Oxycodone (Oxycontin) 10 mg tablet,oral only ,ext.rel.12 hr Oxycodone (Oxycontin) 10 mg tablet,oral only,ext.rel.12 hr 04/04/2020 09:11:38 PM EST 10 MG active [facility] Oxycodone Hydrochloride 10 MG Oral Tablet oxyCODONE HC l 10 MG Oral Tablet oxyCODONE HCl 10 MG Oral Tablet 02/19/2020 12:00:00 AM EST 1 {tbl} O ral active Take 1 tablet by mary th every 4 (four) hours as needed for up to 3 days, Max Daily Dose: 6 tablets [facility] Oxycodone Hydrochloride 10 MG Oral Tablet Oxycodone HCL 02/06/2020 12:00:00 AM EST ORAL active [facility] ([facility]) Oxycodone Hydrochloride 10 MG Oral Tablet oxyCODONE HC l 10 MG Oral Tablet oxyCODONE HCl 10 MG Oral Tablet 01/26/2020 12:00:00 AM EST 10 mg O ral completed Take 10 mg by mouth every 4 (four) hours as needed for up to 3 days, Max Daily Dose: 60 mg [facility] Hyoscyamine Sulfate 0.125 MG Oral Tablet Hyoscyamine Sulfate 0.125 MG Oral Tablet (LEVSIN) Hyoscyamine Sulfate 0.125 MG Oral Tablet (LEVSIN) 12/03 12:00:00 AM EDT 0.125 mg Oral active Take 1 tablet by mouth every 4 (four) hours as needed for Cramping [facility] Baclofen 10 MG Oral Tablet Baclofen 10 MG Oral Tablet (LIORESAL) Baclofen 10 MG Oral Tablet (LIORESAL) 12/22/2019 12:00:00 AM EDT active 1 po tid prn muscle spasm [facility] Cyclobenzaprine hydrochloride 10 MG Oral Tablet Cyclobenzaprine HCl 10 MG Oral Tablet (FLEXERIL) Cyclobenzaprine HCl 10 MG Oral Tablet (FLEXERIL) 12/21 12:00:00 AM EDT active 1 po tid prn muscle spasm [facility] Oxycodone Hydrochloride 10 MG Oral Tablet oxyCODONE HC l 10 MG Oral Tablet oxyCODONE HCl 10 MG Oral Tablet 12/22/2019 12:00:00 AM EDT 10 mg O ral active Take 10 mg by mouth every 4 (four) hours as needed for up to 3 days, Max Daily Dose: 60 mg [facility] tizanidine 4 MG Oral Capsule tiZANidine HCl 4 MG Oral Capsule (ZANAFLEX) tiZANidine HCl 4 MG Oral Capsule (ZANAFLEX) 12/22/2019 12:00:00 AM EDT 4 mg Oral active Take 1 capsule by [facility] Three times daily [facility] Ondansetron 8 MG Disintegrating Oral Tab let Ondansetron 8 MG Oral Tablet Disintegrating (ZOFRAN-ODT) Ondansetron 8 MG Oral Tablet Disintegrat ing (ZOFRAN-ODT) 12/22/2019 12:00:00 AM EDT 8 mg Oral compl eted Take 1 tablet by mouth every 8 (eight) hours as needed for Nausea or Vomiting for up to 7 days [facility] Hyoscyamine Sulfate 0.125 MG Oral Tablet Hyoscyamine Sulfate 0.125 MG Oral Tablet (LEVSIN) Hyoscyamine Sulfate 0.125 MG Oral Tablet (LEVSIN) 07/2019 12:00:00 AM EDT aborted TAKE 1 TABLET BY MOUTH EVERY 4 HOURS NEEDED FOR CRAMPING OR DIARRHEA [facility] magnesium sulfate in dextrose 5 % infusion (premix) 8 mEq [id number] 12/06/2019 09:30:00 AM EDT 8 meq Intravenous completed 8 mEq, Intravenous, Administer over 60 Minutes, Once, 12/06/19 at 0930, For 1 dose
8 mEq = 1 g magnesium sulfate
[facility] Medication administered onsite 1 ML Ketorolac Tromethamine 15 MG/ML Car tridge ketorolac (TORADOL) 15 MG/ML injection 15 mg ketorolac (TORADOL) 15 MG/ML injection 15 mg 0 07:30:00 AM EDT 15 mg Intravenous completed 15 mg, Intravenous, Once, 12/06/19 at 0730, For 1 dose [facility] Medication administered onsite lactated ringers bolus 1,000 mL [id number] 12/06/2019 07:30:00 AM EDT 1000 mL Intravenous completed 1,000 mL , Intravenous, Once, 12/06/19 at 0730, For 1 dose [facility] Medication administered onsite 2 ML Metoclopramide 5 MG/ML Prefilled Sy ringe metoclopramide (REGLAN) injection 10 mg metoclopramide (REGLAN) injection 10 mg 12/06/2019 07:30:00 AM E DT 10 mg Intravenous completed 10 mg, I ntravenous, Once, 12/06/19 at 0730, For 1 dose [facility] Medication administered onsite ondansetron (ZOFRAN) injection 4 mg [id number] 12/06/2019 02:45:0 0 AM EDT 4 mg Given by IV completed 4 mg, Gi branden by IV, Once, 12/06/19 at 0245, For 1 dose [facility] Medication administered onsite Ondansetron 4 MG Disintegrating Oral Tab let Ondansetron 4 MG Oral Tablet Disintegrating (ZOFRAN-ODT) Ondansetron 4 MG Oral Tablet Disintegrat ing (ZOFRAN-ODT) 12/04/2019 12:00:00 AM EDT 8 mg Oral activ e Take 2 tablets by mouth every 8 (eight) hours as needed for Nausea [facility] Oxycodone Hydrochloride 10 MG Oral Tablet oxyCODONE HC l 10 MG Oral Tablet oxyCODONE HCl 10 MG Oral Tablet 11/25/2019 12:00:00 AM EDT 1 {tbl} O ral completed Take 1 tablet by mary th every 4 (four) hours as needed for up to 3 days, Max Daily Dose: 6 tablets [facility] Baclofen 10 MG Oral Tablet Baclofen 10 MG Oral Tablet (LIORESAL) Baclofen 10 MG Oral Tablet (LIORESAL) 11/24/2019 12:00:00 AM EDT aborted 1 po tid prn muscle spasm [facility] Ondansetron 8 MG Disintegrating Oral Tab let Ondansetron 8 MG Oral Tablet Disintegrating (ZOFRAN-ODT) Ondansetron 8 MG Oral Tablet Disintegrat ing (ZOFRAN-ODT) 11/24/2019 12:00:00 AM EDT 8 mg Oral compl eted Take 1 tablet by mouth every 8 (eight) hours as needed for Nausea or Vomiting for up to 7 days [facility] Oxycodone Hydrochloride 10 MG Oral Tablet oxyCODONE HC l 10 MG Oral Tablet oxyCODONE HCl 10 MG Oral Tablet 11/24/2019 12:00:00 AM EDT 1 {tbl} O ral aborted Take 1 tablet by mary th every 4 (four) hours as needed for up to 3 days, Max Daily Dose: 6 tablets [facility] Acetaminophen 325 MG / Hydrocodone Alec trate 5 MG Oral Tablet HYDROcodone- Acetaminophen 5-325 MG Oral Tablet (LORTAB) HYDROcodone-Acetaminophen 5-325 MG Oral Tablet (LORTAB) 11/17/2019 12:00:00 AM EDT 1 {tbl} Oral completed Take 1 tablet by mouth every 3 (three) h ours as needed for Pain, Max Daily Dose: 8 tablets [facility] Hyoscyamine Sulfate 0.125 MG Oral Tablet Hyoscyamine Sulfate 0.125 MG Oral Tablet (LEVSIN) Hyoscyamine Sulfate 0.125 MG Oral Tablet (LEVSIN) 11/03 12:00:00 AM EDT 0.125 mg Oral aborted Take 1 tablet by mouth every 4 (four) hours as needed for Cramping or Diarrhea [facility] Buprenorphine 8 MG Sublingual Tablet Bup renorphine HCl 8 MG Sublingual Tablet Sublingual (SUBUTEX) Buprenorphine HCl 8 MG Sublingual Tablet Sublingual (SUBUTEX) 11/12/2019 12:00:00 AM EDT mg Sublingual comp leted Place 1- 4 tablets under the tongue once for 1 dose, Max Daily Dose: 32 mg [facility] olanzapine 10 MG Oral Tablet OLANZapine 10 MG Oral Tab let (ZYPREXA) OLANZapine 10 MG Oral Tablet (ZYPREXA) 11/12/2019 12:00:00 AM EDT 10 mg Oral completed Take 1 tablet by mouth once as n eeded MDD: 1 tablet [facility] Clonidine Hydrochloride 0.1 MG Oral Tabl et cloNIDine HCl 0.1 MG Oral Tablet (CATAPRES) cloNIDine HCl 0.1 MG Oral Tablet (CATAPRES) 11/12/2019 12:00:00 AM EDT 0.1 mg Oral aborted Take 1 t ablet by mouth Three times daily as needed MDD: 3 tablets [facility] Hyoscyamine Sulfate 0.125 MG Sublingual Tablet Hyoscyamine Sulfate 0.125 MG Sublingual Tablet Sublingual (LEVSIN/SL) Hyoscyamine Sulfate 0.125 MG Sublingual Tablet Sublingual (LEVSIN/SL) 11/12/2019 12:00:00 AM EDT 0.125 mg Ora l active Take 1 tablet by mary th every hour as needed for Cramping for up to 10 daysMDD: 6 tablets [facility] Trazodone Hydrochloride 100 MG Oral Tabl et traZODone HCl 100 MG Oral Tablet (DESYREL) traZODone HCl 100 MG Oral Tablet (DESYREL) 11/12/2019 12:00: 00 AM EDT mg Oral completed Take 1-3 table ts by mouth See Admin Instructions MDD: 3 tablets [facility] gabapentin 600 MG Oral Tablet Gabapentin 600 MG Oral T ablet (NEURONTIN) Gabapentin 600 MG Oral Tablet (NEURONTIN) 11/12/2019 12:00:00 AM EDT mg Oral aborted Take 1-2 tablet s by mouth nightly as needed (insomnia or restless legs) [facility] Naltrexone hydrochloride 50 MG Oral Tabl et Naltrexone HCl 50 MG Oral Tablet (DEPADE) Naltrexone HCl 50 MG Oral Tablet (DEPADE) 11/12/2019 12:00:00 AM EDT active Mix soluti on as per your worksheet. Do not take 1 full tablet! [facility] Metoclopramide 10 MG Oral Tablet Metoclopramide HCl 10 MG Oral Tablet (REGLAN) Metoclopramide HCl 10 MG Oral Tablet (REGLAN) 11/12/2019 12:00:00 AM EDT 10 mg Oral completed Take 1 tab let by mouth every 6 (six) hours as needed for nausea. [facility] Oxycodone Hydrochloride 10 MG Oral Tablet oxyCODONE HC l 10 MG Oral Tablet oxyCODONE HCl 10 MG Oral Tablet 11/12/2019 12:00:00 AM EDT mg O ral aborted Take 10-20 mg by mouth daily as needed , Max Daily Dose: 20 mg [facility] Acetaminophen 325 MG / Hydrocodone Alec trate 5 MG Oral Tablet HYDROcodone- Acetaminophen 5-325 MG Oral Tablet (LORTAB) HYDROcodone-Acetaminophen 5-325 MG Oral Tablet (LORTAB) 09/11/2019 12:00:00 AM EDT 1 {tbl} Oral active Take 1 tablet by mouth every 3 (three) hours as needed for Pain, Max Daily Dose: 8 tablets [facility] tizanidine 4 MG Oral Tablet tiZANidine HCl 4 MG Oral T ablet (Zanaflex) tiZANidine HCl 4 MG Oral Tablet (Zanaflex) 09/11/2019 12:00:00 AM EDT 4 mg Oral active Take 1 tablet by mary th every 6 (six) hours as needed [facility] Hyoscyamine Sulfate 0.125 MG Oral Tablet Hyoscyamine Sulfate 0.125 MG Oral Tablet (LEVSIN) Hyoscyamine Sulfate 0.125 MG Oral Tablet (LEVSIN) 11/2019 12:00:00 AM EDT 0.125 mg Oral active Take 1 tablet by mouth every 4 (four)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 METABOLIC PANEL STAT 12/06/2019 3:29 AM EDT 12/06/2019 03:29:00 AM EDT [facility] Blood culture for bacteria, including anaerobic screen (proc edure) 09/12/2019 12:00:00 AM EDT [facility] RADIOLOGY REPORT RADIOLOGY REPORT 07/24/2019 11:57 AM EDT 07/24/2019 03:57:26 PM [facility] PROTHROMBIN TIME PROTIME INR Routine 07/23/2019 6:57 AM EDT 07/23/2019 10:57:00 AM [facility] BLOOD COUNT COMPLETE AUTOMATED CBC Routine 07/23/2019 5:03 A M EDT 07/23/2019 09:03:00 AM [facility] COMPREHENSIVE METABOLIC PANEL COMPREHENSIVE METABOLIC PANEL Rou trisha 07/23/2019 5:03 AM EDT 07/23/2019 09:03:00 AM EDT [facility] ULTRASOUND ABDOMINAL REAL TIME W/IMAGE LIMITED US ABDOMEN L IMITED [id number] Routine 07/22/2019 2:56 PM EDT 07/22/2019 06:56:12 PM [facility] DUP-SCAN ARTL MARICEL ABDL/PEL/SCROT&/RPR ORGN LMTD US DO PPLER ABDOMEN PELVIS ORGANS LIMITED [id number] Routine 07/22/2019 2:55 PM EDT 07/22/2019 06:55:13 PM [facility] UH COVID-19 PCR UH COVID-19 PCR STAT 07/22/2019 7:14 AM EDT 07/22/2019 11:14:00 AM [facility] GONADOTROPIN CHORIONIC QUANTITATIVE BETA HCG, QUANT Routine 07/22/2019 6:19 AM EDT 07/22/2019 10:19:00 AM EDT [facility] FERRITIN FERRITIN LEVEL Routine 07/22/2019 6:19 AM EDT 07/22/2019 10:19:00 AM [facility] IRON TOTAL FE BINDING CAPACITY Routine 07/22/2019 6:19 AM EDT 07/22/2019 10:19:00 AM [facility] PROTHROMBIN TIME PROTIME INR Routine 07/22/2019 6:19 AM EDT 07/22/2019 10:19:00 AM [facility] IADNA NOS QUANTIFICATION EACH ORGANISM ABBEY-MICHELLE VIRUS D NA, QUANTITATIVE Routine 07/22/2019 6:19 AM EDT 07/22/2019 10:19:00 AM [facility] IADNA CYTOMEGALOVIRUS QUANTIFICATION CMV DNA, QUANTITATIVE, PCR Routine 07/22/2019 6:19 AM EDT 07/22/2019 10:19:00 AM [facility] [id number] TOTAL [id number]-1-[id number] Routine 020 6:19 AM EDT 07/22/2019 10:19:00 AM EDT [facility] CERULOPLASMIN CERULOPLASMIN Routine 07/22/2019 6:19 AM EDT 07/22/2019 10:19:00 AM [facility] MICROSOMAL ANTIBODIES EACH LIVER KIDNEY MICROS IGG Routine 07/22/2019 6:19 AM EDT 07/22/2019 10:19:00 AM EDT [facility] ACETAMINOPHEN, RANDOM ACETAMINOPHEN, RANDOM Routine 07/22/2019 6 :19 AM EDT 07/22/2019 10:19:00 AM [facility] ANTINUCLEAR ANTIBODIES JULIAN JULIAN Routine 07/22/2019 6:19 AM ED T 07/22/2019 10:19:00 AM [facility] PHOSPHORUS INORGANIC PHOSPHORUS LEVEL Routine 07/22/2019 6:19 AM E DT 07/22/2019 10:19:00 AM [facility] MAGNESIUM MAGNESIUM LEVEL Routine 07/22/2019 6:19 AM EDT 07/22/2019 10:19:00 AM [facility] ACUTE HEPATITIS PANEL HEPATITIS PANEL, ACUTE Routine 07/22/2019 6:15 AM EDT 07/22[facility]2019 [facility]O CONTRAST MATERIAL CT MAXILLOFACIAL WIT HOUT CONTRAST [id number] STAT 07/22/2019 5:03 AM EDT 07/22/2019 09:03:02 AM [facility] HEPATIC FUNCTION PANEL HEPATIC FUNCTION PANEL A STAT 0 1:16 AM EDT 07/22/2019 05:16:00 AM [facility] BLOOD COUNT COMPLETE AUTO&AUTO DIFRNTL WBC COUNT CBC AND DIFFER ENTIAL STAT 07/22/2019 1:16 AM EDT 07/22/2019 05:16:00 AM [facility] BASIC METABOLIC PANEL CALCIUM TOTAL BASIC METABOLIC PANEL STAT 07/22/2019 1:16 AM EDT 07/22/2019 05:16:00 AM EDT [facility] XR ABDOMEN AP SUPINE AND LATERAL VIEW 69574 XR ABDOME N AP SUPINE AND LATERAL VIEW 98915 Routine 07/21/2019 10:43 PM EDT 07/22/2019 02:4 3:13 AM [facility] XR CHEST FRONTAL AND LATERAL 45876 XR CHEST FRONTAL AND LATERAL 03290 Routine 07/21/2019 10:43 PM EDT 07/22/2019 02:43:13 AM [facility] RADIOLOGIC EXAMINATION SKULL < 4 VIEWS XR SKULL LIMITED 60176 R outine 07/21/2019 10:43 PM EDT 07/22/2019 02:43:13 AM [facility] Blood culture for bacteria, including anaerobic screen (proc edure) 07/06/2019 12:00:00 AM EDT [facility] Blood culture for bacteria, including anaerobic screen (proc edure) 06/19/2019 12:00:00 AM EDT [facility] Blood culture for bacteria, including anaerobic screen (proc edure) 04/12/2019 12:00:00 AM [facility] URNLS DIP STICK/TABLET REAGENT AUTO MICROSCOPY URINALYSIS W ITH MICROSCOPIC STAT 04/08/2019 7:15 AM EST 04/08/2019 12:15:00 PM [facility] RESPIRATORY PANEL RESPIRATORY PANEL STAT 04/08/2019 7:07 AM EST 04/08/2019 12:07:00 PM [facility] XR ABDOMEN AP SUPINE AND LATERAL VIEW 61172 XR ABDOME N AP SUPINE AND LATERAL VIEW 93774 Routine 04/08/2019 6:10 AM EST 04/08/2019 11:1 0:53 AM [facility] RADIOLOGIC EXAMINATION SKULL < 4 VIEWS XR SKULL LIMITED 39860 R outine 04/08/2019 6:10 AM EST 04/08/2019 11:10:53 AM [facility] XR CHEST FRONTAL AND LATERAL 57767 XR CHEST FRONTAL AND LATERAL 52803 Routine 04/08/2019 6:10 AM EST 04/08/2019 11:10:[address] [facility] [address] ABDOEN & PELVIS W/CONTRAST MATERIAL CT ABDOMEN PELVIS WI TH CONTRAST 22877 STAT 04/08/2019 5:45 AM EST 04/08/2019 10:45:00 AM [facility] POCT ISTAT CG POCT ISTAT CG Routine 04/08/2019 4:25 AM EST 04/08/2019 09:25:00 AM [facility] PARTIAL THROMBOPLASTIN TIME (PTT) PARTIAL THROMBOPLASTIN TIME ( PTT) STAT 04/08/2019 4:12 AM EST 04/08/2019 09:12:00 AM [facility] SEDIMENTATION RATE RBC AUTOMATED SEDIMENTATION RATE, AUTOMATED Routine 04/08/2019 4:12 AM EST 04/08/2019 09:12:00 AM [facility] PROTHROMBIN TIME PROTIME INR STAT 04/08/2019 4:12 AM EST 04/08/2019 09:12:00 AM [facility] BLOOD COUNT COMPLETE AUTO&AUTO DIFRNTL WBC COUNT CBC AND DIFFER ENTIAL STAT 04/08/2019 4:12 AM EST 04/08/2019 09:12:00 AM [facility] BLOOD TYPING ABO TYPE AND SCREEN STAT 04/08/2019 4:12 AM EST 04/08/2019 09:12:00 AM [facility] C-REACTIVE PROTEIN INFLAMMATORY C-REACTIVE PROTEIN (CRP) Routin e 04/08/2019 4:12 AM EST 04/08/2019 09:12:00 AM [facility] COMPREHENSIVE METABOLIC PANEL COMPREHENSIVE METABOLIC PANEL STA T 04/08/2019 4:12 AM EST 04/08/2019 09:12:00 AM [facility] XR ABDOMEN AP SUPINE AND LATERAL VIEW 96264 XR ABDOME N AP SUPINE AND LATERAL VIEW 57673 Routine 03/01/2019 12:06 AM EST Diagnosis unknown 03/01/2019 05:06:57 AM EST Diagnosis unknown [facility] Diagnosis unknown RADIOLOGIC EXAMINATION SKULL < 4 VIEWS XR SKULL LIMITED 31135 R outine 03/01/2019 12:06 AM EST 03/01/2019 05:06:57 AM [facility] XR CHEST FRONTAL AND LATERAL 34100 XR CHEST FRONTAL AND LATERAL 35914 Routine 03/01/2019 12:06 AM EST 03/01/2019 05:06:57 AM [facility] GONADOTROPIN CHORIONIC QUANTITATIVE POCT ISTAT BHCG Routine 02/28/2019 11:11 PM EST 03/01/2019 04:11:00 AM [facility] SEDIMENTATION RATE RBC AUTOMATED SEDIMENTATION RATE, AUTOMATED STAT 02/28/2019 10:58 PM EST 03/01/2019 03:58:00 AM [facility] BLOOD COUNT COMPLETE AUTO&AUTO DIFRNTL WBC COUNT CBC AND DIFFER ENTIAL STAT 02/28/2019 10:58 PM EST 03/01/2019 03:58:00 AM [facility] C-REACTIVE PROTEIN C-REACTIVE PROTEIN Routine 02/28/2019 10:[address] 03/01/2019 03:58:00 AM [facility] C-REACTIVE PROTEIN C-REACTIVE PROTEIN Routine 02/28/2019 10:[address] 03/01/2019 03:58:00 AM [facility] THYROID STIMULATING HORMONE TSH TSH Routine 02/28/2019 10:58 PM EST 03/01/2019 03:58:00 AM [facility] BASIC METABOLIC PANEL CALCIUM TOTAL BASIC METABOLIC PANEL STAT 02/28/2019 10:58 PM EST 03/01/2019 03:58:00 AM [facility] Results ID Date Data Source [id number] 04/04/2020 11:32:00 PM [facility] [address] [place] [address] [phone] NAME SEX PT STATUS ACCOUNT NUMBER NIMA DIAZ REG ER [id number] ORDERING PHYSICIAN LOCATION MEDICAL RECORD NO. Santo Snyder MD ER [id number] ATTENDING PHYSICIAN DATE OF DATE OF EXAM/TIME [...] No free air. No significant fluid collection. [employer] shunt catheter is coiled within the pelvis. [...] Dowling MD on 04/04/202331 Date Time CC: [facility]; Quinton Dowling MD Techn: [id number] Trans Dt/Tm: Trans by: DT Prt Dt/Tm: : Total DLP = 1000.00 mGy-cm : Total Radiation Dose = 15.0000 mSv Lifetime Dose: 17.6102 mSv Name Value Range Interpretation Code Description Data Shelbi rce(s) Supporting Document(s) ID Date Data Source [id number] 04/04/2020 11:21:00 PM EST [facility] [address] [id number] [phone] NAME SEX PT STATUS ACCOUNT NUMBER NIMA DIAZ [facility] ER [id number] ORDERING PHYSICIAN LOCATION MEDICAL RECORD NO. Santo Snyder MD ER [id number] ATTENDING PHYSICIAN DATE OF DATE OF EXAM/TIME [...] Chaves MD on 04/04/202320 Date Time CC: [facility]; Lester Chaves MD Techn: PANKAJ Gallardo Dt/Tm: Trans by: DT Prt Dt/Tm: : Total DLP = 842.00 mGy-cm : Total Radiation Dose = 2.6102 mSv Lifetime Dose: 17.6102 mSv Name Value Range Interpretation Code Description Data Shelbi rce(s) Supporting Document(s) ID Date Data Source [id number] 04/04/2020 11:21:00 PM [facility] Special Instructions: Lab may order repe at test if initial test elevatedPhysician If elevated, reflex second test in 4-6 hrs Name Value Range Interpretation Code Description Data Shelbi rce(s) Supporting Document(s) Lactic w Rfx (if elevated) 1.1 mmol/L 0.5-2.0 N [facility] ID Date Data Source [id number] 04/09/2020 10:16:00 PM [facility] Special Instructions: Lab may order repe at test if initial test elevatedPhysician If elevated, reflex second test in 4-6 hrs Name Value Range Interpretation Code Description Data Shelbi rce(s) Supporting Document(s) Bacteria identified in Blood by Culture [facility] NO GROWTH AFTER 5 DAYS ID Date Data Source [id number] 04/04/2020 10:51:00 PM [facility] Name Value Range Interpretation Code Description Data Shelbi rce(s) Supporting Document(s) Amylase [Enzymatic activity/volume] in Serum or Plasma 38 U/L 30- 118 N [facility] ID Date Data Source [id number] 04/04/2020 10:51:00 PM [facility] Value Range Interpretation Code Description Data Shelbi rce(s) Supporting Document(s) Lipase [Enzymatic activity/volume] in Serum or Plasma 186 U/L 73-3 93 [address] [facility] ID Date Data Source [id number] 04/04/2020 10:51:00 PM [facility] Name Value Range Interpretation Code Description Data Shelbi rce(s) Supporting Document(s) Troponin I.cardiac [Mass/volume] in Serum or Plasma Less Than 0.015 0.00-0.09 [facility] Less than 0.09 NG/ML Negative0.10 - 0.77 NG/ML High Risk0.78 NG/ML or Greater PositiveThe WHO defined the cutoff (definition for diagnosis of [place])for this method as 0.78 ng/ml. ID Date Data Source [id number] 04/04/2020 10:19:00 PM [facility] Name Value Range Interpretation Code Description Data Shelbi rce(s) Supporting Document(s) Leukocytes [#/volume] in Blood by Automated count 7.5 10*3/uL 4.45-10 .71 [facility] Erythrocytes [#/volume] in Blood by Automated count 4.31 10*6/uL 4.20 -5.40 [facility] Hemoglobin [Moles/volume] in Blood 13.2 g/dL 10.7-15.4 [facility] Hematocrit [Volume Fraction] of Blood by Automated count 41.1 % 3 7-47 N [facility] Erythrocyte mean corpuscular volume [Ent itic volume] in Cord blood by Automated count 95.4 fL 80-96 N [facility] ital Erythrocyte mean corpuscular hemoglobin [Entitic mass] by Automated count 30.6 pg 27-31 N [facility] Erythrocyte mean corpuscular hemoglobin concentration [Mass/volume] in Cord blood 32.1 g/dL 33-37 Below low normal [facility] Erythrocyte distribution width [Entitic volume] by Automated count 13 % 11-15 N [facility] Platelets [#/volume] in Blood by Automated count 369 10*3/uL 130-472 N [facility] Platelet mean volume [Entitic volume] in Blood 9.0 fL 9.1-13. 1 Below low normal [facility] Neutrophils/100 leukocytes in Blood by Automated count 65.5 % 41- 77 N [facility] Neutrophils [#/volume] in Blood by Automated count 4.9 U 1.7-7.6 N [facility] Lymphocytes/100 leukocytes in Blood by Automated count 24.4 % 14- 46 N [facility] Lymphocytes [#/volume] in Blood by Automated count 1.8 U 0.6-4.6 N [facility] Monocytes/100 leukocytes in Blood by Automated count 7.8 % 4-12 N [facility] Monocytes [#/volume] in Blood by Automated count 0.6 U 0.2-1.2 N [facility] Eosinophils/100 leukocytes in Blood by Automated count 1.2 % 0-7 N [facility] Eosinophils [#/volume] in Blood by Automated count 0.1 U 0.0-0.5 N [facility] Basophils/100 leukocytes in Blood by Automated count 0.7 % 0.4-1 .3 N [facility] Basophils [#/volume] in Blood by Automated count 0.1 U 0.0-0.2 N [facility] NUCLEATED RED BLOOD CELL 0 % [facility] NUCLEATED RED BLOOD CELL# 0 U [facility] Immature granulocytes [Presence] in Blood by Automated count 0-2 N [facility] Immature granulocytes [#/volume] in Blood by Automated count 0.0 U 0-0.1 N [facility] Manual Differential panel - Blood NO [facility] ID Date Data Source [id number] 04/04/2020 10:41:00 PM [facility] Name Value Range Interpretation Code Description Data Shelbi rce(s) Supporting Document(s) Urea nitrogen [Mass/volume] in Serum or Plasma 19 mg/dL 9-23 N [facility] Sodium [Moles/volume] in Serum or Plasma 141 mmol/L 132-146 N [facility] Potassium [Moles/volume] in Serum or Plasma 3.9 mmol/L 3.5-5.5 N [facility] Chloride [Moles/volume] in Serum or Plasma 110 mmol/L 99-109 Above high normal [facility] Carbon dioxide, total [Moles/volume] in Serum or Plasma 24 mmol/L 20 -31 N [facility] Anion gap in Serum or Plasma 11 mmol/L 8-16 N [facility] Glucose [Mass/volume] in Serum or Plasma 91 mg/dL 74-106 N [facility] Creatinine 0.7 mg/dL 0.5-1.1 [facility] Glomerular filtration rate/1.73 sq M.pre dicted [Volume Rate/Area] in Serum or Plasma Greater Than 60 ABOVE 60 [facility] Alanine aminotransferase [Enzymatic acti vity/volume] in Serum or Plasma by With P-5'-P 29 U/L 10-49 N [facility] ital Aspartate aminotransferase [Enzymatic ac tivity/volume] in Serum or Plasma by With P-5'-P 26 U/L 0-[address] [facility] pital Alkaline phosphatase [Enzymatic activity/volume] in Serum or Plasma 88 U/L 45-129 N [facility] Calcium [Mass/volume] in Serum or Plasma 8.4 mg/dL 8.5-10.1 Below low normal [facility] Bilirubin.total [Mass/volume] in Serum or Plasma 0.2 mg/dL 0.3-1.2 Below low normal [facility] Albumin [Mass/volume] in Serum or Plasma by Bromocresol purple (BCP) dye binding method 3.3 g/dL 3.2-4.8 N [facility] ital Protein [Mass/volume] in Serum or Plasma 7.0 g/dL 5.7-8.2 [facility] ID Date Data Source [id number] 04/04/2020 10:41:00 PM [facility] @ DID THE CONTROL BAND APPEAR? Y@ DID TH E BACKGROUND CLEAR? Y Name Value Range Interpretation Code Description Data Shelbi rce(s) Supporting Document(s) Choriogonadotropin [Moles/volume] in Serum or Plasma NEGATIVE NEGAT ROGER [facility] @Reenter manual test result: NEG@by Ramona Duval at 04/04/202240. ID Date Data Source [id number] 04/06/2020 06:37:00 AM [facility] Greater than 100,000 CFU/MLStaph spp, St rep spp, Corynebacterium sppNormal Commensal FloraProbable contaminants no senst done Name Value Range Interpretation Code Description Data Shelbi rce(s) Supporting Document(s) ID Date Data Source [id number] 04/04/2020 10:46:00 PM [facility] @04/04/202241: UA W/ MICRO added. RFLXG = UMIC.Method of Collection:: Voided @04/04/202241: UA W/ MICRO added. RFLXG = UMIC.Method of Collection:: Voided Name Value Range Interpretation Code Description Data Shelbi rce(s) Supporting Document(s) Color of Urine [facility] Appearance of Urine CLEAR Abnormal (applies to non-nu meric results) [facility] pH of Urine by Test strip 5.0 5-8 [facility] Specific gravity of Urine by Refractometry 1.044 1.005 -1.030 Abnormal (applies to non-numeric results) [facility] Leukocyte esterase [Presence] in Urine by Test strip NEGATIVE Above high normal [facility] @DO MICRO!!!! Nitrite [Presence] in Urine by Test strip NEGATIVE [facility] Protein [Presence] in Urine by Test strip NEGATIVE [facility] Glucose [Mass/volume] in Urine by Automated test strip NEGATIVE NEG ATIVE [facility] Ketones [Presence] in Urine by Test strip NEGATIVE [facility] Urobilinogen [Presence] in Urine 0.2-1 EU/dl [facility] Bilirubin.total [Presence] in Urine by Automated test strip NEGATIVE [facility] Erythrocytes [#/volume] in Urine by Test strip TRACE NEGATIV E Above high normal [facility] @DO MICRO!!!! URINE MICROSCOPIC ADDED Microscopic Added [facility] ID Date Data Source [id number] 04/04/2020 10:46:00 PM EST [facility] @04/04/20 2242: UA W/ MICRO added. RFLXG = UMIC.Method of Collection:: Voided @04/04/20 2242: UA W/ MICRO added. RFLXG = UMIC.Method of Collection:: Voided Name Value Range Interpretation Code Description Data Shelbi rce(s) Supporting Document(s) Erythrocytes [#/volume] in Urine by Manual count 1-2 /hpf 0-5 [facility] Leukocytes [#/volume] in Urine by Manual count OCCASIONAL 0-5 [facility] Cells [Type] in Urine sediment by Light microscopy [facility] Crystals [type] in Urine sediment by Light microscopy [facility] ID Date Data Source [id number] 04/04/2020 09:43:00 PM [facility] ED Physician Documentation NAME: JOENIMA Eamon : 1990 AGE: 29 MR#: [id number] SERVICE DATE: 04/04/[address]: Santo Snyder [...] Cloudy A, Urine pH 5.0, Ur Specific [place] 1.044 A, Urine Protein Trace, Urine Ketones [...] % (Auto) 65.5, Lymph % (Auto) 24.4, [place] % (Auto) 7.8, Eos % (Auto) 1.2, [...] of physical examination) No nystagmus or diplopia. Lqhyms-mu-qzsp, xguf-ni-zffc normal. Motor: Power all 4 extremities +5/5. [...] with neurosurgeon and surgical services such as [facility], risks, benefits, alternatives discussed with patient. Abd pain diff dx includes nonspecific/viral gastroenteritis, new onset inflammatory bowel disease. Pt states she does not want to be transferred to [facility]. Patient states she wants to go home and follow-up with her PMD @ [place]. I offered to refer patient to our [...] Follow Up Care/Instructions Diet/Activity/Wound Care..: Rest. Diet: [place] foods, such as toast, crackers, dry cereal, clear liquids in small frequent amounts. Follow-up [facility] 04/05/20; call 9:00 AM for appointment to see Surgeon today. Also, call your Primary Care Doctor at [place] today for an appointment to follow-up with [...] D: RICARDO 04/04/202142 T: RICARDO 04/04/202142 CC: [facility] Name Value Range Interpretation Code Description Data Shelbi rce(s) Supporting Document(s) ID Date Data Source [id number] 02/17/2020 07:41:00 AM [facility] Name Value Range Interpretation Code Description Data Shelbi rce(s) Supporting Document(s) HCG URINE QUAL NEGATIVE NORMAL: NEGATIVE [facility] HCG URINE QL REENTER NEGATIVE NORMAL: NEGATIVE [facility] { KIT LOT # [id number] ){ KIT EXP DATE 12.08.20 ){ PROCEDURAL CONTROL VALID ) ID Date Data Source [id number] 02/12/2020 10:25:00 AM [facility] Name Value Range Interpretation Code Description Data Shelbi rce(s) Supporting Document(s) SARS coronavirus 2 RNA [facility] This lab was ordered by [facility] Laboratory and reported by [facility]. ID Date Data Source [id number] 02/09/2020 10:21:00 PM EST [facility] Patient: NIMA DIAZ Observation Re port - [facility].VisitID: [id number] [place] [address] [phone], FRegistration Date/Time: 02/09/2020 17:49 Weight:105.6 kg (S). Height/Length:62 inches (S). BMI:42.6 PAST HISTORYProblems:Abdominal Pain [Chronic].GI Disease [Chronic].Polycystic ovarian syndrome [Chronic].Pseudotumor cerebri [Chronic].Intercranial hypertension [Chronic].Neurological Disease [Chronic].Depression [Chronic].Pituitary mass [Chronic].Head Injury.Chronic Headache.Contusion.Chest Injury.Diarrhea.Hydrocephalus.Viral Disease.Sick Contact.Nausea.Neck Pain.Migraine Headache.Headache.Headache [Intermittent].Cellulitis [Resolved].Diarrhea [Resolved].Skin Rash [Resolved].Wound Dehiscence [Resolved].C. Difficile Colitis [Resolved].GLASS FURNACE TENDER Shunt Complication [RuleOut]. Additional Surgeries:Abdominal surgery to release gas S/P shunt repair.Appendectomy.Cholecystectomy.Kidney stone removal.LP shunt.Lypoma removed from back .Tonsillectomy.GLASS FURNACE TENDER Shunt. (Right revised april 2018Left placed June [...] ingram(s) Supporting Document(s) ID Date Data Source [id number] 02/09/2020 07:01:00 PM EST [facility] TSYSORDER [id number] Name Value Range Interpretation Code Description Data Shelbi eamon(s) Supporting Document(s) C REACTIVE PROTEIN 10.7 mg/L 0.0-3.0 [facility] ID Date Data Source [id number] 02/09/2020 07:01:00 PM [facility] TSYSORDER [id number] Name Value Range Interpretation Code Description Data Shelbi rce(s) Supporting Document(s) GLUCOSE 91 mg/dL 74-106 [facility] BLOOD UREA NITROGEN 7 mg/dL 7-18 [facility] ital CREATININE 0.7 mg/dL 0.6-1.0 [facility] SODIUM 139 mmol/L 136-145 [facility] POTASSIUM 3.8 mmol/L 3.5-5.1 [facility] CHLORIDE 104 mmol/L 98-107 [facility] CO2 24 mmol/L 21-32 [facility] CALCIUM 8.8 mg/dL 8.5-10.1 [facility] ANION GAP 11.0 mmol/L 5-12 [facility] GLOMERULAR FILTRATION RATE >90 mL/min [facility] GFR IS CALCULATED IN mL/min/1.73m2 JESICA L FUNCTION: >90MILDLY DECREASED: 60-89MILDY TO MODERATELY DECREASED: 45-59 MODERATELY TO SEVERELY DECREASED: 30-44SEVERELY DECREASED: 15-29RENAL FAILURE: <15 AST 14 U/L 15-37 [facility] ALT 22 U/L 12-78 [facility] ALKALINE PHOSPHATASE 84 U/L 46-116 [facility] TOTAL BILIRUBIN 0.1 mg/dL 0.2-1.0 L [facility] TOTAL PROTEIN 7.7 g/dl 6.4-8.2 [facility] ALBUMIN 3.7 gm/dL 3.4-5.0 [facility] ID Date Data Source [id number] 02/09/2020 06:43:00 PM [facility] TSYSORDER [id number] Name Value Range Interpretation Code Description Data Shelbi rce(s) Supporting Document(s) WHITE BLOOD COUNT 7.3 K/mm3 4.0-10.0 [facility] RED BLOOD COUNT 4.80 M/mm3 4.00-5.50 [facility] HEMOGLOBIN 14.4 gm/dL 12.0-16.0 [facility] HEMATOCRIT 43.9 % 36.0-48.8 [facility] MEAN CELL VOLUME 91.5 fl 80-96 [facility] MEAN CORPUSCULAR HEMOGLOBIN 30.0 pg 27.0-31.0 [facility] MEAN CORPUSCULAR HGB CONC 32.8 g/dl 32.0-36.0 [facility] RED CELL DISTRIBUTION WIDTH 12.4 % 10.0-14.5 [facility] PLATELET COUNT 369 K/mm3 172-450 [facility] MEAN PLATELET VOLUME 9.3 fl 9.0-13.0 [facility] GRAN % 65.7 % 50-80.0 [facility] IG% 0.3 % 0.0-0.2 H [facility] LYMPH % 25.9 % 25.0-50.0 [facility] MONO % 6.9 % 2.0-10.0 [facility] EOS % 0.8 % 0-5.0 [facility] BASO % 0.4 % 0.0-2.0 [facility] GRAN # 4.8 K/mm3 2.0-8.00 [facility] IG# 0.0 K/mm3 0.0-0.2 [facility] LYMPH # 1.9 K/mm3 1.0-5.0 [facility] MONO # 0.5 K/mm3 0.10-1.20 [facility] EOS # 0.1 K/mm3 0.0-0.5 [facility] BASO # 0.0 K/mm3 0.0-0.2 [facility] ID Date Data Source [id number] 02/09/2020 06:14:00 PM [facility] ital TSYSORDER [id number] Name Value Range Interpretation Code Description Data Shelbi rce(s) Supporting Document(s) URINE COLOR. [facility] URINE APPEARANCE CLEAR [facility] l URINE GLUCOSE (UA) NEGATIVE mg/dL NEGATIVE [facility] URINE BILIRUBIN NEGATIVE NEGATIVE [facility] URINE KETONE NEGATIVE mg/dL NEGATIVE [facility] SPECIFIC GRAVITY,URINE 1.020 1.001-1.035 [facility] URINE BLOOD NEGATIVE NEGATIVE [facility] PH,URINE 8.5 5.0-9.0 [facility] URINE PROTEIN NEGATIVE mg/dL NEGATIVE [facility] URINE UROBILINOGEN NORMAL(0.2-1) mg/dL 0-1 [facility] URINE NITRATE NEGATIVE NEGATIVE [facility] URINE LEUKOCYTE ESTERASE NEGATIVE NEGATIVE [facility] ID Date Data Source [id number] 02/09/2020 04:25:00 PM EST [facility] Patient: JOE, NIMA E Observation Re port - [facility].VisitID: [id number] [place] [address] [phone], FRegistration Date/Time: 02/06/2020 23:00 Weight:105.6 kg (S). Height/Length:62 inches (S). BMI:42.6 FAMILY HISTORYNo significant family medical history. (Electronically signed by Hazel Rizo M.D. 02/06/2020 23:41) Addenda for NIMA DIAZ VisitID: [id number] Date: 02/06/2020 02/09/2020 16:23LWBS/LWBT/AMA??? follow-up Spoke with [...] rce(s) Supporting Document(s) ID Date Data Source [id number] 02/06/2020 11:59:00 PM EST [facility] Patient: NIMA DIAZ Observation Re port - [facility].VisitID: [id number] [place] [address] [phone], FRegistration Date/Time: 02/06/2020 23:00 Weight:105.6 kg (S). Height/Length:62 inches (S). BMI:42.6 FAMILY HISTORYNo significant family medical history. (Electronically signed by Hazel Rizo M.D. 02/06/2020 23:41) Name Value Range Interpretation Code Description Data Shelbi rce(s) Supporting Document(s) ID Date Data Source [id number] 01/21/2020 12:00:00 AM EST [facility] Name Value Range Interpretation Code Description Data Shelbi rce(s) Supporting Document(s) SARS coronavirus 2 RNA [Presence] in Res piratory specimen by MARISEL with probe detection [facility] This lab was ordered by Collette Mendez and reported by [facility]. ID Date Data Source [id number] 12/25/2019 02:57:38 PM EDT [facility] Name Value Range Interpretation Code Description Data Shelbi rce(s) Supporting Document(s) Consultation [facility] WTUNIr0gOjJZCeAl40/JWCjrCTDue4KhVXdlHIe7PKrsHIQjN0VeHWB9rW2cEKM1NZaRJtCkMcCuBEOa lbm BjSpvZObWzYLVdBfbUSlJzMLfsIwenjQZtOB4LiFY8WVNzS31wMNXuUNJyO9OgHWQgXUX+Ug3CSYRhhV KxMY4YEvjG8K9oa8dIDh6pvT/SEnQw3pGzfvEwIRm3RBtTYh2f089FGluBpNzXT4k1KQqV//vysZQ00/ OvCaVg7pVkO+nZYho3o8CJ5AoO0m+/xE3LYW2zzp/L L8DYqgb40ld/gdO8Vh5kkZ9to0tY7mltpNhc/NVz//aVivNb70wNOVHbkB7R55Hh+yVz3tQbKCh3MVkE 3tqCkM0jcCwFW9oPor6VU3iEFjhhbfbLXJ1HRpJietGB8mq7f8g2Ho2TjAAlfhn7D+PxDoCqRixM5XcL rF8RWmKuqbt5Nk+KIagvk26sWGHa36Sju6WGLnz7oT u/iC6yRyS9ieEIv7RhRhLoIMktwL3QghQmP/4aelp3SI+y+/eadm8Ihnskv0tZAHKhbXyo+I4rbVO4pS DlKRsYj7dLuDI7G+0zg34L68StKbD3gc2NY3xH6k0zG+2RhGTpuO0h+9QsIQELBiLYlenE4aDZF/aEUa zQPX2g1KKVqKk2D1hWw73XEZTTygpiLWyopO2hZaI2 gIhJnGGeLvGyVGSZ8CkDSkmHdgcej3Wdj8Q34f9jr8K+Gzmf5QZ1mnCaA56pPubeW5sJVCAPBeyp+BARB [file] WTO2XGPyFVQ9TeP8H4UnSA4eSNRDFr6+MQrpiPCjlBifLDVKEwC9QqMbMGarKIKIFl3Y ID Date Data Source [id number] 12/09/2019 01:28:40 PM EDT [facility] Name Value Range Interpretation Code Description Data Shelbi rce(s) Supporting Document(s) ED Provider Note [facility] PGBNYy2bUeCBKxBp57/CORtoKADlv7TwAMfdUBy6FQwaFAVqN3ZoGHH0zW0uQRI3PQxYUuPyDyUiMEJ9 lbm [file] +rpY5qm5RZkGO9P3QM+Business Segment Manager+lcsQ4thxC6nmgbAcxIrdhVStMByAx5DzEf0lgc2KVqtYXajpoBfItoU11A [file] lnEDFWBYBpuHEnRIBOx3SbgmQuvCBRTAIbtLSdBLir MFNwnrXuSDRHPhPvxNLvOO5qQwCxGtDwIIH9KdBiRH4mBSqnUF3IQZD0ZRwqYnhzNNEVIW2UQSbhMXR3 ETfuevTdpZMtSNykGY0APKLnerZqOFehHGOVZJfbXZ5AyzK4KCPyPPWyYr8UTr3XAdWvOA2afg4PUPDk TNTeDrjBGiy7GAglAZ3EbEPsF2VcpSWrz9cNFzVeQ3 ZJGVZ8EVDnOg2XVCXqVzZcVXAaMAkqWQ0dNNMiCDRVnMhfpaP3YC9IPA8dzfCgCK9MSuGrGn8xZq5EGr JyZ5HyQ4YgWKYoGHWGMQtiEP8KXCgyES8fAU4Rw2PJbWTnqN0cbu1EVDDmILAfFotcap3ZMnqvA4I3tA ueGNXuSBykHWPUPQmdOQ2XBCYpUXJ5TRK3MvKkDRUT ScNzF05qON8WT6Twj47hIeM8ABPeYlQkGPypFG64pJwhesUtqXSycFolVV1KZi0+DQplbmRvYmoNCnhy GRSHSlNbXCRGEgQyOVJeBEUaTKOpUbR9WkHnDp5CVATuGXYpUQMqUzWwTGWrCJPjPCdyDYCaBQMmCUB0 OYIeCADbRV7MHoMzFETeFOK7BMviYCMqKFWmkg0NJV WeRMMaPOG1SkJbFWUeTZXrEWuuJYZpBQOuIuU3OTKpDBKjNM7ZSqWcQANoZLX1NrPfWXEcNLOumh7WRE WzFXJdVxI1OiEeSMRmGCKxOSsyTYSmSGR6XKCaOJIwOWZjXK5EYkVxFFDgHNi9ZWPjYWWrUADwoz0YLH DqPTWiOYygTpYaNPTjDIKzPPmeXEWzDLKyFMt5UKIr IMKvIM9HKsZgYLKyWTZjITPuXNJfNUXgdu6XGGJyWXSuMJG4ENBiPDVlNUVgNAlfQMZnJDB7QSFbHHNf QEXzUN7JPoSsGIElQTmmACpgOTXrUSEibu2CCTYmDUPtAzJxZZDyKDWoDMIyMJtnLQVnJGOgIqP9JIFf ZTQnQJ6RSaLkEPHmUbR2WUBgMUPlYUJhjl8CPYUnRC IbACA8MgFeSUPzBUUvXIkmVLKqDVQ1FeL5CBNrDZKzHK9JPwBjSJWkNmV4HcFiCSZbALUppw4XIURfKW TkFgssJJRbBMQdGSRrECqxXIXxVNOqPKL6AIYuIFYcXR7TBoAiQWKoWcCgCrXfBVDnNLQqwj8OHMCgOZ EjXwBeJfYtNFZqOJXvHVaaBLZxDIOhBSL9FLRmGVGf FC2VHiMcXXSuIaE7CGVbYLUlWBSzoj3XDVUkLAIsDQK9VZZgKIPbONHaLLhoUWGgIKC1EFM9YBPlBQMi RJ0TXlIuYJXmOsApPANlKWXmVSMduk3AQXSeHXTyCkEvNNHmDPPeCPBqFGbkBXLiXSZ9YRl0CIRtBYHc ZC0XViZxWOQsWqx6PIiePWYtKTOqzm9ZCDXwZRCxWi y0MoDyLFJnQVHkNFgfUIMvKQZ5FJD2ZOWxHHAlRX8XFzPgPCXaJfpdCIWtXYLnNKDtkk2ZHIFeNRIcYX SuImHvMDPeAWZwHHmkQXRyVKZsJrTuRFHfIUVxKC8IRlFnFDSeFSH7IgVpFPGtZFPaej0MDSLkSIT7EK PjEBWtGEXeXSLyLKqiGYBiQNLaAoe0HDQjMXGtBX8Z RuYfYSFqGHH0UkPpSRXhJQMjqe6BSXNgTPQ7JkX0JCRgAYLcXMMzNQrgAEDqOJMuVnK1YDAmVNWmYG1V NoDqCZBmRBF9HpTtRIPeKLXnxb0MBCApDOZ8QhB2AwKmHAGyRHEnVAobUXEbXGU1BmcoNWEkYEPoKJ7G RqFiTLThTJV9NHMuSYHyKGXein8SWVIjBZY6LXKmTJ KcPRVgDBNdANkiJJLwLPT0XgW0NXSqUCSuPH7ZFjJsRQZxGSXiREepXSAdXHOsur5EHCDnOSF9FQV9Yz BnLPXwGEDhXGd4uoMagRGkWVo2VD2JP9AlyiBxGHNMMt4Si481HCCkPAOtGd4SB3feLg3rHOXyMSVTQv 3RCKy6GPWyEKy4UWFeXZRyDfQ9P6TwZFfbCtIwB9Z1 MTl8ZQI+RXihK3C2YWTvZYJ2DIWfHeMfSUA5PtXxTmYsTIY9VIk5NO4aIYKRVe7+DQpzdGFydHhyZWYN WqN2SFGzPDruKWTPSv3W ID Date Data Source [id number] 12/08/2019 01:21:00 [place] [address] PHONE: [phone] FAX: [phone] Name .................. : JOE Knutson Acct Number.................. : [id number] ROOM. ................. : TR-06 MR Number ................... : [id number] Stay type ............. : E/R Discharge Date......... ... : 12/05/19 Admit Date ......... : 12/05/19 Admit Phys .................... : VENERUS BR Date of ....... : 1990 Family Phys ................... : UNKNOWN Phone .................. : [phone] Age ................................ : 29 Film# .................. .:[id number] Sex ................................. : F Unsigned transcriptions are preliminary reports and do not represent a medical or legal document CHEST PORTABLE [id number] COMPLETE:12/05/19 19:27 [facility] [id number] Reason(s): Headache, hx in tercranial HTN, ? GLASS FURNACE TENDER shunt defect. PORTABLE CHEST, 12/05/19: INDICATION: Headache and history of intracranial hypertension, question GLASS FURNACE TENDER shunt defect. FINDINGS: Lung maddox are clear. No focal infiltrate or consolidation is identified. A GLASS FURNACE TENDER shunt is present over the right hemithorax. Cardiac silhouette appears unremarkable. IMPRESSION: No acute pulmonary findings. Examination dictated by SREE Gray. Examination was reviewed with Jae Goldstein MD, radiologist at the time of this dictation. Electronically Reviewed and Signed By Jae Goldstein M.D. , 12/08/19 13:21, NMY Transcribe Initials: [facility], Transcribe Date: 12/08/19 09:17, Dictation Date: Copy for: [facility] via fax Copy for: EMERGENCY DEPT via modem Copy for: 710 MED REC DISCHARGED Page 1 of 1 Name Value Range Interpretation Code Description Data Shelbi rce(s) Supporting Document(s) ID Date Data Source [id number] 12/08/2019 01:20:00 PM EDT [facility] [address] [place] [address] PHONE: [phone] FAX: [phone] Name .................. : JOE Knutson Acct Number.................. : [id number] ROOM. ................. : TR-06 Number ................... : [id number] Stay type ............. : E/R Discharge Date......... ... : 12/05/19 Admit Date ......... : 12/05/19 Admit Phys .................... : LADONNA CASAS Date of ....... : 1990 Family Phys ................... : UNKNOWN Phone .................. : [phone] Age ................................ : 29 Film# .................. .:[id number] Sex ................................. : F Unsigned transcriptions are preliminary reports and do not represent a medical or legal document CT HEAD W/O CONTRAST [id number] COMPLETE:12/05/19 19:01 PENG [id number] Reason(s): posterior headache, hx of intracranial HTN, recent GLASS FURNACE TENDER shunt doroteo CT SCAN OF THE HEAD WITHOUT IV CONTRAST, 12/05/19: INDICATION: Posterior headache. FINDINGS: No acute hemorrhage or infract is identified. No midline shift or mass effect is identified. There is a GLASS FURNACE TENDER shunt identified on the right side. Osseous [...] By Jae Goldstein M.D. , 12/08/19 13:20, NMY Transcribe Initials: [facility], Transcribe Date: 12/08/19 09:01, Dictation Date: Copy for: [facility] via fax Copy for: EMERGENCY DEPT via [facility] Copy for: 710 [facility] REC Page [address] [place] [address] PHONE: [phone] FAX: [phone] Name .................. : JOE NIMA Eamon Acct Number.................. : [id number] ROOM. ................. : TR-06 MR Number ................... : [id number] Stay type ............. : E/R Discharge Date......... ... : 12/05/19 Admit Date ......... : 12/05/19 Admit Phys .................... : LADONNA CASAS Date of ....... : 1990 Family Phys ................... : UNKNOWN Phone .................. : [phone] Age ................................ : 29 Film# .................. .:[id number] Sex ................................. : F Unsigned transcriptions are preliminary reports and do not represent a medical or legal document CT HEAD W/O CONTRAST [id number] COMPLETE:12/05/19 19:01 PENG [id number] Reason(s): posterior headache, hx of intracranial HTN, recent GLASS FURNACE TENDER shunt doroteo DISCHARGED Page 2 of 2 Name Value Range Interpretation Code Description Data Shelbi rce(s) Supporting Document(s) ID Date Data Source [id number] 12/08/2019 12:35:05 PM EDT [facility] Name Value Range Interpretation Code Description Data Shelbi rce(s) Supporting Document(s) ED Provider Note [facility] EVOZWw5nUoOZZtAy74/LVKbwNNYri4MwOYqbRRx2SXmeLUDaZ6LtLFW3pU5sARA3GSbWQiPpJyWjKXI9 lbm [file] business development [file] Q1IYErRRdkXUFfUBHzFm0xOUZYEi9+OJksqHYncPbxYBMZRkb2YvttPOwtNHNHAd3P ID Date Data Source [id number] 12/06/2019 11:36:09 AM EDT [facility] Name Value Range Interpretation Code Description Data Shebli rce(s) Supporting Document(s) Consultation [facility] XAUEHe3dArVGYjTk76/KPCxkBTUew6YhUJpyOQa6WOdlDICxY8QfFCQ0eD1rFDY5DEcPSaNmThUaKIPd lbm [file] +NOsiaMeFbpfndkRqj5EllqUa1RazxFVvYz/OM/+HOUSEHOLD APPLIANCES SALESPERSON [file] WmLFogKNmmSwC5OzY2EJQ7GdQ9WY0uUJVLGn0+KLkrpGOrgNlvRLIFWoY0SKI1FNgcSSYFUd5L ID Date Data Source [id number] 12/06/2019 04:42:07 AM EDT [facility] XR SKULL LIMITED [id number] RESULTInterp reted by:CAROLIN MaciasROCEDURE INFORMATION: Exam: XR Skull, Less Than 4 Views Exam date and time: 12/06/2019 2:56 AM Age: 29 years old Clinical indication: Other: Shunt series TECHNIQUE: Imaging protocol: XR of the skull, less than 4 views. COMPARISON: CR XR SKULL LIMITED [id number] 2019-02-28 23:42 FINDINGS: Tubes, catheters and devices: [...] rce(s) Supporting Document(s) ID Date Data Source [id number] 12/06/2019 04:41:47 AM EDT [facility] XR CHEST FRONTAL AND LATERAL [id number] RESULTInterpreted by:ALANA Macias INFORMATION: Exam: XR Chest, [...] Name Value Range Interpretation Code Description Data [facility] rce(s) Supporting Document(s) ID Date Data Source [id number] 12/06/2019 04:41:17 AM EDT [facility] XR ABDOMEN AP SUPINE AND LATERAL VIEW 74 019FINAL RESULTInterpreted by:ALANA Macias INFORMATION: Exam: XR Abdomen, 2 Views Exam date and time: 12/06/2019 2:56 AM Age: 29 years old Clinical indication: Other: Shunt series TECHNIQUE: Imaging protocol: XR of the abdomen. Views: 2 Views. COMPARISON: CR XR ABDOMEN AP SUPINE AND LATERAL VIEW [id number] 2019-07-21 22:26 FINDINGS: Tubes, catheters and devices: [...] rce(s) Supporting Document(s) ID Date Data Source [id number] 12/05/2019 05:39:00 PM EDT [facility] 1 OrderSheet [facility] Emergency Department [address] [place] [address] Phone #: ext- [phone] 12/05/2019 17:42 Patient: [...] posterior headache, hx of intracranial HTN, recent GLASS FURNACE TENDER shunt removalChest Portable 1 STAT 19:21 12/05/2019 19:54 Minh,Haley BALBUENA; Marlo Marcus(Oxygen?(No)) Reason for Study: Headache, hx intercranial HTN, ? GLASS FURNACE TENDER shunt defect.MEDICATION/IV/DRIP/FLUID ORDERSOrder Description Priority Entered Acknowledged InitialedZofran IVP 4 mg 18:55 12/05/2019 19:15 Renzo Wilkinson; Marlo MarcusMorphine IVP 2 mg 18:55 12/05/2019 19:15 Minh,(NOW x1, keep o2 Renzo BALBUENA; Marlo Marcussat > 90%, HIGHALERTMEDICATION)Morphine IVP 2 mg 20:24 12/05/2019 20:26 Minh,(NOW x1, keep o2 Renzo BALBUENA; Marlo Marcussat > 90%, HIGH 2 OrderSheet [facility] Emergency Department [address] [place] [address] Phone #: ext- [phone] 12/05/2019 17:42 Patient: [...] rce(s) Supporting Document(s) ID Date Data Source [id number] 12/05/2019 05:39:00 PM EDT [facility] 1 Medication Reconciliation Report [facility] Emergency Department [address] [place] [address] Phone #: ext- [phone] 12/05/2019 17:42 Patient: [...] to the patient:None. 2 Medication Reconciliation Report [facility] Emergency Department [address] [place] [address] Phone #: ext- [phone] 12/05/2019 17:42 Patient: NIMA GLASS Sex: F : 1990 Age: 29y Name Value Range Interpretation Code Description Data Shelbi rce(s) Supporting Document(s) ID Date Data Source [id number] 12/05/2019 05:39:00 PM EDT [facility] 1 Medication Administration Record [facility] Emergency Department [address] [place] [address] Phone #: ext- [phone] 12/05/2019 17:42 Patient: [...] rce(s) Supporting Document(s) ID Date Data Source [id number] 12/05/2019 05:39:00 PM EDT [facility] 1 General Instructions [facility] Emergency Department [address] [place] [address] Phone #: ext- [phone] 12/05/2019 17:42 Patient: NIMA DIAZ Sex: F : 1990 Age: 29y(worsening headache with history of GLASS FURNACE TENDER shunt x 2 and recent removal of 1 GLASS FURNACE TENDER shunt. ? CSF leakage).(Electronically signed by SREE Jean 12/05/2019 22:09) Name Value Range Interpretation Code Description Data Shelbi rce(s) Supporting Document(s) ID Date Data Source [id number] 12/05/2019 05:39:00 PM EDT [facility] 1 Clinical Report - Nurses [facility] Emergency Department [address] [place] [address] Phone #: ext- [phone] 12/05/2019 17:42 Patient: [...] days ago). 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 Sepsis [...] Status.Cellulitis.Abdominal Pain. 2 Clinical Report - Nurses [facility] Emergency Department [address] [place] [address] Phone #: ext- [phone] 12/05/2019 17:42 Patient: NIMA DIAZ Sex: F [...] impairments noted. 3 Clinical Report - Nurses [facility] Emergency Department [address] [place] [address] Phone #: ext- [phone] 12/05/2019 17:42 -- [...] Wilkinson R.N. 4 Clinical Report - Nurses [facility] Emergency Department [address] [place] [address] Phone #: [phone]- [phone] 12/05/2019 17:42 Patient: NIMA DIAZ Sex: F [...] Rika Araujo R.N.DISPOSITION / DISCHARGE Transferred to [facility]. Report was given via a phone call. Report included information regarding patient's treatment and condition including: recent changes, current vital signs and critical labs. Report included treatment information regarding medications given or pending; type and amount of IV fluids and medications infusing. All questions were answered. Report was acknowledged. (Lizette ALONSO). --22:07 12/05/19 Marlo Wilkinson R.N. Transported via ambulance by tech and middle school counselor. --22:08 12/05/19 Marlo Wilkinson R.N. 22:08 12/05/19. BP: 140/94. MAP: 109. HR: 85. RR: 18. O2 saturation: 98%. Temp: 98.2 F. Pain level now: 09/11. --22:08 12/05/19 Marlo Wilkinson R.N. ( Care transferred to Rika ALONSO.). --22:21 12/05/19 Marlo Wilkinson R.N. Departure time: 22:50 12/05/2019. Condition at departure: stable. Transferred to [facility]. Visit overview provided to transport team and transfer facility via paper (Adult ED). Report was given to an EMT/P in person. Report was acknowledged. (Ann). --22:51 12/05/19 Rika Araujo R.N. 22:45 12/05/19. BP: 122/84. MAP: 96. HR: 88. RR: 18. O2 saturation: 98%. Temp: 98 F. Pain level now: 5 Clinical Report - Nurses [facility] Emergency Department [address] [place] [address] Phone #: ext- [phone] 12/05/2019 17:42 Patient: NIMA DIAZ Sex: F : 1990 Age: 29y 04/14. --22:51 12/05/19 Rika Araujo R.N.Locked/Released at 12/06/2019 04:27 by Rika Araujo R.N. Name Value Range Interpretation Code Description Data Shelbi rce(s) Supporting Document(s) ID Date Data Source [id number] 12/05/2019 05:39:00 PM EDT [facility] 1 Clinical Report - Physicians/Mid Levels [facility] Emergency Department [address] [place] [address] Phone #: ext- [phone] 12/05/2019 17:42 Patient: [...] R ear/eye, pt states recent hospitalization at [facility], where she had GLASS FURNACE TENDER shunt removed, hx of intracranial HTN. Pt states she "coded" during the shunt removal and was revived after 5 mins, but states [facility] neurosurgery did not replace shunt due to code event. Nausea over past several days. No fever.). She has had recent travel- (travel to [facility] in past month). Similar symptoms previously. [...] Disease. 2 Clinical Report - Physicians/Mid Levels [facility] Emergency Department [address] [place] [address] Phone #: [phone] rqk- [phone] 12/05/2019 17:42 Patient: NIMA DIAZ Sex: F [...] surgery. Tonsillectomy. Ventriculo Peritoneal Shunt Surgery [07/2015]. GLASS FURNACE TENDER shunt. Medications: Ascorbic Acid Buffered Oral 500, [...] NOTES 3 Clinical Report - Physicians/Mid Levels [facility] Emergency Department [address] [place] [address] Phone #: ext- [phone] 12/05/2019 17:42 Patient: [...] PORTABLE Reason(s): Headache, hx intercranial HTN, ? GLASS FURNACE TENDER shunt defect. TRANSPORTATION: IV? O2? Oxygen?(No) Room: ED CBC w Diff: (SOPHY: 12/05/2019 18:53) ( OhgRcvd 12/05/2019 19:02) Final results Test Result Flag [...] 80.0) 4 Clinical Report - Physicians/Mid Levels [facility] Emergency Department [address] [place] [address] Phone #: ext- [phone] 12/05/2019 17:42 Patient: NIMA DIAZ [facility]#: [id number] Sex: F : 1990 Age: 29y LYMPH [...] Male GFR Interprentation 20-49 yrs >60 mL/min Jtkpnf08-62 yrs >56 mL/min Normal 60-69 yrs >49 mL/min Normal 70-79yrs>42 mL/min Normal 80 and above >35 mL/min Normal Female GFRInterpretation 20-39 yrs >60 mL/min Normal 40-49 yrs >58 mL/minNormal 50-59 yrs >51 mL/min Normal 60-69 yrs >45 mL/min Cmimik18-05 yrs >39 mL/min Normal 80 and above >32 mL/min NormalCT Head W/O Cont: (SOPHY: 12/05/2019 18:42) ( MsgRcvd 12/05/2019 19:01) In ProgressCT HEAD W/O CONTRASTReason(s): posterior headache, hx of intracranial HTN, recent GLASS FURNACE TENDER shunt removalTRANSPORTATION: WC IV? O2? Oxygen?(No) Room: EDUrinalysis: (SOPHY: 12/05/2019 18:00) ( MsgRcvd 12/05/2019 18:20) Final results Test Result Flag Units (Reference) URINALYSIS 5 Clinical Report - Physicians/Mid Levels [facility] Emergency Department [address] [place] [address] Phone #: [phone] 12/05/2019 17:42 Patient: NIMA DIAZ Sex: F [...] 05 2019. Pt will be transferred to [facility] ED for further evaluation after consultation with Dr Ramos, neurosurgery, for worsening headache with hx of intracranial HTN, GLASS FURNACE TENDER shunt and recent GLASS FURNACE TENDER shunt removal. Dr Pardo ED attending, accepting physician. Critical care performed (30 minutes). Time is exclusive of separately billable procedures. Time includes: direct patient care , patient reassessment, coordination of patient care, interpretation of data (laboratory data and pulse oximetry), medical consultation and documentation of patient care- see progress notes. Disposition: Benefits, risks and alternatives to transfer explained to patient. Transferred to [facility]. Summary of care (CCDA) provided to [...] transfer.CLINICAL IMPRESSION (worsening headache with history of GLASS FURNACE TENDER shunt x 2 and recent removal of 1 GLASS FURNACE TENDER shunt. ? CSF leakage).(Electronically signed by SREE Jean 12/05/2019 22:09) 6Clinical Report - Physicians/Mid Levels [facility] Emergency Department [address] [place] [address] Phone #: [phone]- [phone] 12/05/2019 17:42 Patient: NIMA DIAZ Sex: F : 1990 Age: 29y Name Value Range Interpretation Code Description Data Shelbi rce(s) Supporting Document(s) ID Date Data Source [id number] 12/06/2019 04:07:03 AM T [facility] Name Value Range Interpretation Code Description Data Shelbi rce(s) Supporting Document(s) Leukocytes [#/volume] in Blood by Automated count 7.6 10*3/uL 4-10 [facility] Erythrocytes [#/volume] in Blood by Automated count 4.07 10*6/uL 4.1- 5.3 L [facility] Hemoglobin [Mass/volume] in Blood 12.6 g/dL 11.5-15.5 [facility] Hematocrit [Volume Fraction] of Blood by Automated count 38.1 % 3 6-45 [facility] Erythrocyte mean corpuscular volume [Entitic volume] by Auto mated count 93.7 fL 80-96 [facility] Erythrocyte mean corpuscular hemoglobin [Entitic mass] by Automated count 31.1 pg 27-33 [facility] Erythrocyte mean corpuscular hemoglobin concentration [Mass/volume] by Automated count 33.1 g/dL 32.0-36.0 [facility] al Erythrocyte distribution width [Ratio] by Automated count 13.7 % 11.5-14.5 [facility] Platelets [#/volume] in Blood by Automated count 363 10*3/uL 150-400 [facility] Differential cell count method - Blood [facility] Neutrophils/100 leukocytes in Blood by Automated count 56 % [facility] Lymphocytes/100 leukocytes in Blood by Automated count 31 % [facility] Monocytes/100 leukocytes in Blood by Automated count 10 % [facility] Eosinophils/100 leukocytes in Blood by Automated count 2 % [facility] Basophils/100 leukocytes in Blood by Automated count 1 % [facility] Neutrophils [#/volume] in Blood by Automated count 4.32 10*3/uL 1.8-7 .0 [facility] Lymphocytes [#/volume] in Blood by Automated count 2.33 10*3/uL 1.2-4 .0 [facility] Monocytes [#/volume] in Blood by Automated count 0.74 10*3/uL 0-0.8 [facility] Eosinophils [#/volume] in Blood by Automated count 0.11 10*3/uL 0-0.5 [facility] Basophils [#/volume] in Blood by Automated count 0.06 10*3/uL 0-0.2 [facility] Nucleated erythrocytes/100 leukocytes [Ratio] in Blood by Automated count 0 /100{WBCs} 0-0 [facility] ID Date Data Source [id number] 12/06/2019 04:10:57 AM [facility] Name Value Range Interpretation Code Description Data Shelbi rce(s) Supporting Document(s) Prothrombin time (PT) 13.3 s 12.5-14.9 [facility] INR in Platelet poor plasma by Coagulation assay 1.00 [facility] Routine intensity oral anticoagulation I NR is typically 2.0-3.0. Target INR must be clinically individualized. ID Date Data Source [id number] 12/06/2019 04:25:50 AM [facility] Value Range Interpretation Code Description Data Shelbi rce(s) Supporting Document(s) Bicarbonate [Moles/volume] in Serum 23 mmol/L 22-29 [facility] Chloride [Moles/volume] in Serum or Plasma 109 mmol/L 98-107 H [facility] Creatinine [Mass/volume] in Serum or Plasma 0.58 mg/dL 0.50-0.90 [facility] Glucose [Mass/volume] in Serum or Plasma 80 mg/dL 70-140 [facility] Potassium [Moles/volume] in Serum or Plasma 3.5 mmol/L 3.4-5.1 [facility] Hemolyzed Sodium [Moles/volume] in Serum or Plasma 138 mmol/L 136-145 [facility] Urea nitrogen [Mass/volume] in Serum or Plasma 10 mg/dL 6-20 [facility] Anion gap 3 in Serum or Plasma 7 mmol/L 8-15 L [facility] Osmolality of Serum or Plasma by calculation 285 mosm/kg 275-300 [facility] Creatinine/Urea nitrogen [Mass Ratio] in Serum or Plasma 17 [facility] Calcium [Mass/volume] in Serum or Plasma 7.8 mg/dL 8.6-10.0 L [facility] Glomerular filtration rate/1.73 sq M pre dicted among non-blacks [Volume Rate/Area] in Serum or Plasma by Creatinine-based formula (MDRD) >6 0 [facility] Glomerular filtration rate/1.73 sq M pre dicted among blacks [Volume Rate/Area] in Serum or Plasma by Creatinine-based formula (MDRD) >60 [facility] ID Date Data Source [id number] 12/06/2019 05:15:25 AM EDT [facility] Name Value Range Interpretation Code Description Data Shelbi rce(s) Supporting Document(s) Erythrocyte sedimentation rate 29 mm/hr <20 H [facility] ID Date Data Source [id number] 12/05/2019 07:41:00 PM EDT [facility] Name Value Range Interpretation Code Description Data Shelbi rce(s) Supporting Document(s) COMPREHENSIVE METABOLIC PANEL [facility] COMPREHENSIVE METABOLIC PANEL Sodium [Moles/volume] in Serum or Plasma 139 mEq/L 134 - 153 [facility] Potassium [Moles/volume] in Serum or Plasma 4.2 mEq/L 3.6 - 5.0 [facility] Chloride [Moles/volume] in Serum or Plasma 104 mEq/L 98 - 107 [facility] Carbon dioxide, total [Moles/volume] in Serum or Plasma 23 MEQ/L 22 - 30 [facility] Glucose [Mass/volume] in Serum or Plasma 96 MG/DL 65 - 110 [facility] BUN 13 MG/DL 7 - 21 [facility] al Creatinine [Mass/volume] in Serum or Plasma 0.6 MG/DL 0.7 - 1.5 L [facility] BUN/CREAT 22 8 - 27 [facility] Protein [Mass/volume] in Serum or Plasma 6.4 G/DL 6.3 - 8.2 [facility] Albumin [Mass/volume] in Serum or Plasma 4.1 G/DL 3.9 - 5.0 [facility] Globulin [Mass/volume] in Serum by calculation 2.3 GM/DL 2.4 - 3.2 L [facility] A/G RATIO 1.8 0.8 - 2.0 [facility] Calcium [Mass/volume] in Serum or Plasma 9.6 MG/DL 8.4 - 10.2 [facility] Bilirubin.total [Mass/volume] in Serum or Plasma <0.7 MG/DL 0.2 - 1.3 [facility] Alkaline phosphatase [Enzymatic activity/volume] in Serum or Plasma 81 U/L 38 - 126 [facility] Aspartate aminotransferase [Enzymatic activity/volume] in Serum or Plasma 17 U/L 5 - 40 [facility] Alanine aminotransferase [Enzymatic activity/volume] in Seru m or Plasma 24 U/L 7 - 56 [facility] Anion gap 3 in Serum or Plasma 12.0 mmol/L 8.0 - 16.0 [facility] AGE 29 yrs [facility] NON-AA GFR >60 mL/min [facility] ital AFR AMER GFR >60 mL/min [facility] spital Male GFR In terprentation 20-49 [...] >32 mL/min Normal ID Date Data Source [id number] 12/05/2019 07:02:00 PM EDT [facility] Name Value Range Interpretation Code Description Data Shelbi rce(s) Supporting Document(s) CBC W/AUTOMATED DIFF [facility] COMPLETE BLOOD COUNT Leukocytes [#/volume] in Blood by Automated count 8.7 10^3/uL 4.2 - 1 1.0 [facility] Erythrocytes [#/volume] in Blood by Automated count 4.03 10^6/uL 4. 20 - 5.40 L [facility] Hemoglobin [Mass/volume] in Blood 12.3 g/dL 12.0 - 16.0 [facility] Hematocrit [Volume Fraction] of Blood by Automated count 37.6 % 3 7.0 - 47.0 [facility] Erythrocyte mean corpuscular volume [Entitic volume] by Auto mated count 93.3 fL 81.0 - 101 [facility] Erythrocyte mean corpuscular hemoglobin [Entitic mass] by Automated count 30.5 pg 27.0 - 34.0 [facility] Erythrocyte mean corpuscular hemoglobin concentration [Mass/volume] by Automated count 32.7 g/dL 31.0 - 36.0 [facility] Erythrocyte distribution width [Ratio] by Automated count 12.4 % 11.5 - 14.5 [facility] Platelets [#/volume] in Blood by Automated count 348 10^3/uL 150 - 45 0 [facility] Platelet mean volume [Entitic volume] in Blood by Automated count 9.1 fL 7.4 - 10.4 [facility] Neutrophils/100 leukocytes in Blood by Automated count 68.5 % 37. 0 - 80.0 [facility] Lymphocytes/100 leukocytes in Blood by Manual count 22.7 % 25.0 - 40.0 L [facility] Monocytes/100 leukocytes in Blood by Automated count 6.5 % 3.0 - 8.0 [facility] Eosinophils/100 leukocytes in Blood by Automated count 1.1 % 0.0 - 7.0 [facility] Basophils/100 leukocytes in Blood by Automated count 0.6 % 0.0 - 2.5 [facility] %IG 0.6 % 0.0 - 0.0 [facility] %NRBC 0.0 % 0.0 - 0.0 [facility] al Neutrophils [#/volume] in Blood by Automated count 5.97 10^3/uL 2.00 - 6.90 [facility] Lymphocytes [#/volume] in Blood by Automated count 1.98 10^3/uL 0.60 - 3.40 [facility] Monocytes [#/volume] in Blood by Automated count 0.57 10^3/uL 0.00 - 0.90 [facility] Eosinophils [#/volume] in Blood by Automated count 0.10 10^3/uL 0.00 - 0.70 [facility] Basophils [#/volume] in Blood by Automated count 0.05 10^3/uL 0.00 - 0.20 [facility] #IG 0.05 10^3/uL 0.00 - 0.10 [facility] ospital #NRBC 0.00 10^3/uL 0.00 - 0.00 [facility] MANUAL DIFF NOT INDICATED [facility] RBC MORPH NOT INDICATED [facility] ID Date Data Source [id number] 12/05/2019 06:19:00 PM EDT [facility] Name Value Range Interpretation Code Description Data Shelbi rce(s) Supporting Document(s) URINALYSIS [facility] URINALYSIS SOURCE R [facility] al COLOR yellow NORMAL: Yellow [facility] ospital CLARITY clear NORMAL: Clear [facility] sp[facility] Specific gravity of Urine by Test strip 1.015 1.001 - 1.030 [facility] pH 6.5 5 - 9 [facility] Glucose [Mass/volume] in Urine by Test strip NORM NORMAL: Negat [facility] Bilirubin.total [Presence] in Urine by Test strip NEG NORMAL: Negative [facility] Ketones [Presence] in Urine by Test strip NEG NORMAL: Negative [facility] Protein [Mass/volume] in Urine by Test strip NEG NORMAL: Negat [facility] Nitrite [Presence] in Urine by Test strip NEG NORMAL: Negative [facility] BLOOD NEG NORMAL: Negative [facility] Leukocyte esterase [Presence] in Urine by Test strip NEG JESICA L: Negative [facility] Urobilinogen [Mass/volume] in Urine by Test strip NOR less melvi n 1.0 mg/dL [facility] MICROSCOPIC Not Indicate [facility]ital ID Date Data Source [id number] 11/23/2019 11:46:00 PM EDT [facility] Patient: NIMA DIAZ Observation Re port - Physicians/Mid Levels [facility].VisitID: [id number] [place] [address] [phone], FRegistration Date/Time: 11/22/2019 22:39 Weight:106.5 kg (S). Height/Length:62 inches (S). BMI:43 PAST HISTORYProblems:Polycystic ovarian syndrome [Chronic].Pseudotumor cerebri [Chronic].Abdominal Pain [Chronic].GI Disease [Chronic].Intercranial hypertension [Chronic].Neurological Disease [Chronic].Pituitary mass [Chronic].Depression [Chronic].Migraine Headache. Additional Surgeries:Abdominal surgery to release gas S/P shunt repair.Appendectomy.Cholecystectomy.Kidney stone removal.LP shunt.Lypoma removed from back .Shunts. (Brain shunt for intracranial hypertension 1st one broke and and 2nd one was placed on last sunday)Tonsillectomy.GLASS FURNACE TENDER Shunt. (Right revised april 2018Left placed June [...] Name Value Range Interpretation Code Description Data [facility]) ID Date Data Source [id number] 11/23/2019 08:37:00 AM EDT [facility] [...] Name Value Range Interpretation Code Description Data [facility] Supporting Document(s) ID Date Data Source [id number] 11/22/2019 11:45:00 PM EDT [facility] l TSYSORDER [id number] Name Value Range Interpretation Code Description Data Shelbi rce(s) Supporting Document(s) URINE AMPHETAMINES NEGATIVE <1000 ng/mL [facility] pital THC,URINE NEGATIVE <50 ng/mL [facility] URINE BARBITURATES NEGATIVE <300 ng/mL [facility] ital PCP,URINE NEGATIVE <25 ng/mL [facility] COCAINE, URINE NEGATIVE <300 ng/mL [facility] URINE,OPIATES POSITIVE <300 ng/mL H [facility] URINE,TCA NEGATIVE <1000 ng/mL [facility] IF A NEGATIVE RESULT IS OBTAINED AND ING ESTION OF TRICYCLICANTIDEPRESSANTS IS SUSPECTED, A SERUM SAMPLE SHOULD BEOBTAINED AND TESTED USING AN APPROPRIATE METHOD. URINE BENZODIAZEPINES NEGATIVE <300 ng/mL [facility] ospital THESE TESTS ARE PERFORMED USING AN IMMU NOASSAY FOR THEQUALITATIVE DETERMINATION OF THE PRESENCE OF THE MAJORMETABOLITES OF DRUGS OF ABUSE. THESE TESTS ARE ONLY ASCREENING AND NOT CONFIRMATORY. CLINICAL CONSIDERATION ANDPROFESSIONAL JUDGMENT MUST BE APPLIED TO ANY DRUG OF ABUSETEST RESULT. ID Date Data Source [id number] 11/22/2019 11:27:00 PM EDT [facility] l TSYSORDER [id number] Name Value Range Interpretation Code Description Data Shelbi rce(s) Supporting Document(s) HCG URINE NEGATIVE NEGATIVE [facility] ID Date Data Source [id number] 11/22/2019 11:36:00 PM EDT [facility] l TSYSORDER [id number] Name Value Range Interpretation Code Description Data Shelbi rce(s) Supporting Document(s) GLUCOSE 90 mg/dL 74-106 [facility] BLOOD UREA NITROGEN 11 mg/dL 7-18 [facility] ital CREATININE 0.9 mg/dL 0.6-1.0 [facility] SODIUM 138 mmol/L 136-145 [facility] POTASSIUM 4.2 mmol/L 3.5-5.1 [facility] CHLORIDE 102 mmol/L 98-107 [facility] CO2 23 mmol/L 21-32 [facility] CALCIUM 8.8 mg/dL 8.5-10.1 [facility] ANION GAP 13.0 mmol/L 5-12 H [facility] GLOMERULAR FILTRATION RATE 75 mL/min [facility] GFR IS CALCULATED IN mL/min/1.73m2 JESICA L FUNCTION: >90MILDLY DECREASED: 60-89MILDY TO MODERATELY DECREASED: 45-59 MODERATELY TO SEVERELY DECREASED: 30-44SEVERELY DECREASED: 15-29RENAL FAILURE: <15 AST 43 U/L 15-37 H [facility] ALT 55 U/L 12-78 [facility] ALKALINE PHOSPHATASE 85 U/L 46-116 [facility] TOTAL BILIRUBIN 0.5 mg/dL 0.2-1.0 [facility] TOTAL PROTEIN 7.7 g/dl 6.4-8.2 [facility] ALBUMIN 4.3 gm/dL 3.4-5.0 [facility] ID Date Data Source [id number] 11/22/2019 11:16:00 PM EDT [facility] TSYSORDER [id number] Name Value Range Interpretation Code Description Data Shelbi rce(s) Supporting Document(s) WHITE BLOOD COUNT 10.7 K/mm3 4.0-10.0 H [facility] RED BLOOD COUNT 4.46 M/mm3 4.00-5.50 [facility] HEMOGLOBIN 13.7 gm/dL 12.0-16.0 [facility] HEMATOCRIT 41.4 % 36.0-48.8 [facility] MEAN CELL VOLUME 92.8 fl 80-96 [facility] MEAN CORPUSCULAR HEMOGLOBIN 30.7 pg 27.0-31.0 [facility] MEAN CORPUSCULAR HGB CONC 33.1 g/dl 32.0-36.0 [facility] RED CELL DISTRIBUTION WIDTH 12.3 % 10.0-14.5 [facility] PLATELET COUNT 326 K/mm3 172-450 [facility] MEAN PLATELET VOLUME 9.3 fl 9.0-13.0 [facility] % 67.0 % 50-80.0 [facility] IG% 0.5 % 0.0-0.2 H [facility] LYMPH % 23.3 % 25.0-50.0 L [facility] MONO % 8.0 % 2.0-10.0 [facility] EOS % 1.0 % 0-5.0 [facility] BASO % 0.2 % 0.0-2.0 [facility] GRAN # 7.2 K/mm3 2.0-8.00 [facility] IG# 0.1 K/mm3 0.0-0.2 [facility] LYMPH # 2.5 K/mm3 1.0-5.0 [facility] MONO # 0.9 K/mm3 0.10-1.20 [facility] EOS # 0.1 K/mm3 0.0-0.5 [facility] BASO # 0.0 K/mm3 0.0-0.2 [facility] ID Date Data Source [id number] 09/20/2019 06:54:00 PM EDT [facility] DATE OF EXAMINATION: CERV SPINE W/O CON [...] rce(s) Supporting Document(s) ID Date Data Source [id number] 09/20/2019 06:54:00 PM [facility] DATE OF EXAMINATION: 09/16/2019 18:01 EDT CHEST [...] rce(s) Supporting Document(s) ID Date Data Source [id number] 09/17/2019 12:55:00 AM EDT [facility] Patient: NIMA DIAZ Observation Re port - Physicians/Mid Levels [facility].VisitID: [id number] [place] [address] [phone], FRegistration Date/Time: 09/16/2019 16:08 Weight:104.3 kg (S). [...] Name Value Range Interpretation Code Description Data [facility] rce(s) Supporting Document(s) ID Date Data Source [id number] 09/16/2019 07:15:00 PM EDT [facility] [...] rce(s) Supporting Document(s) ID Date Data Source [id number] 09/16/2019 05:25:00 PM EDT [facility] TSYSORDER [id number] Name Value Range Interpretation Code Description Data Shelbi rce(s) Supporting Document(s) HCG URINE NEGATIVE NEGATIVE [facility] ID Date Data Source [id number] 09/16/2019 05:32:00 PM EDT [facility] ital TSYSORDER [id number] Name Value Range Interpretation Code Description Data Shelbi rce(s) Supporting Document(s) URINE COLOR. [facility] URINE APPEARANCE CLEAR [facility] SPECIFIC GRAVITY,URINE 1.020 1.001-1.035 [facility] URINE LEUKOCYTE ESTERASE NEGATIVE NEGATIVE [facility] URINE NITRATE NEGATIVE NEGATIVE [facility] PH,URINE 6.0 5.0-9.0 [facility] URINE PROTEIN NEGATIVE mg/dL NEGATIVE [facility] GLUCOSE (UA) NEGATIVE mg/dL NEGATIVE [facility] URINE KETONE NEGATIVE mg/dL [facility]GATIVE [facility] UROBILINOGEN NORMAL(0.2-1) mg/dL 0-1 [facility] URINE BILIRUBIN NEGATIVE NEGATIVE [facility] URINE BLOOD NEGATIVE NEGATIVE [facility] ID Date Data Source [id number] 09/16/2019 05:45:00 PM EDT [facility] TSYSORDER [id number] Name Value Range Interpretation Code Description Data Shelbi rce(s) Supporting Document(s) LIPASE 118 U/L 73-393 [facility] ID Date Data Source [id number] 09/16/2019 05:45:00 PM EDT [facility] T[facility] [id number] Name Value Range Interpretation Code Description Data Shelbi rce(s) Supporting Document(s) GLUCOSE 87 mg/dL 74-106 [facility] BLOOD UREA NITROGEN 9 mg/dL 7-18 [facility] ital CREATININE 0.7 mg/dL 0.6-1.0 [facility] SODIUM 136 mmol/L 136-145 [facility] POTASSIUM 3.8 mmol/L 3.5-5.1 [facility] [facility] CHLORIDE 102 mmol/L 98-107 [facility] CO2 25 mmol/L 21-32 [facility] CALCIUM 8.5 mg/dL 8.5-10.1 [facility] ANION GAP 9.0 mmol/L 5-12 [facility] GLOMERULAR FILTRATION RATE >90 mL/min [facility] GFR IS CALCULATED IN mL/min/1.73m2 JESICA L FUNCTION: >90MILDLY DECREASED: 60-89MILDY TO MODERATELY DECREASED: 45-59 MODERATELY TO SEVERELY DECREASED: 30-44SEVERELY DECREASED: 15-29RENAL FAILURE: <15 AST 24 U/L 15-37 [facility] ALT 46 U/L 12-78 [facility] ALKALINE PHOSPHATASE 76 U/L 46-116 [facility] pital TOTAL BILIRUBIN 0.2 mg/dL 0.2-1.0 [facility] TOTAL PROTEIN 7.3 g/dl 6.4-8.2 [facility] ALBUMIN 3.6 gm/dL 3.4-5.0 [facility] ID Date Data Source [id number] 09/16/2019 05:34:00 PM EDT [facility] TSYSORDER [id number] Name Value Range Interpretation Code Description Data Shelbi rce(s) Supporting Document(s) PARTIAL THROMBOPLASTIN TIME 23.1 SECONDS 21.4-30.2 [facility] ID Date Data Source [id number] 09/16/2019 05:34:00 PM EDT [facility] TSYSORDER [id number] Name Value Range Interpretation Code Description Data Shelbi rce(s) Supporting Document(s) PROTHROMBIN TIME (PATIENT) 9.6 SECONDS 9.2-11.6 [facility] INR 0.92 0.87-1.06 [facility] ID Date Data Source [id number] 09/16/2019 04:52:00 PM [facility] TSYSORDER [id number] Name Value Range Interpretation Code Description Data Shelbi rce(s) Supporting Document(s) WHITE BLOOD COUNT 7.2 K/mm3 4.0-10.0 [facility] al RED BLOOD COUNT 4.48 M/mm3 4.00-5.50 [facility] HEMOGLOBIN 13.9 gm/dL 12.0-16.0 [facility] HEMATOCRIT 42.0 % 36.0-48.8 [facility] MEAN CELL VOLUME 93.8 fl 80-96 [facility] MEAN CORPUSCULAR HEMOGLOBIN 31.0 pg 27.0-31.0 [facility] MEAN CORPUSCULAR HGB CONC 33.1 g/dl 32.0-36.0 [facility] RED CELL DISTRIBUTION WIDTH 12.1 % 10.0-14.5 [facility] PLATELET COUNT 349 K/mm3 172-450 [facility] MEAN PLATELET VOLUME 9.5 fl 9.0-13.0 [facility] GRAN % 56.6 % 50-80.0 [facility] IG% 0.1 % 0.0-0.2 [facility] LYMPH % 31.0 % 25.0-50.0 [facility] MONO % 8.1 % 2.0-10.0 [facility] EOS % 3.6 % 0-5.0 [facility] BASO % 0.6 % 0.0-2.0 [facility] GRAN # 4.1 K/mm3 2.0-8.00 [facility] IG# 0.0 K/mm3 0.0-0.2 [facility] LYMPH # 2.2 K/mm3 1.0-5.0 [facility] MONO # 0.6 K/mm3 0.10-1.20 [facility] EOS # 0.3 K/mm3 0.0-0.5 [facility] BASO # 0.0 K/mm3 0.0-0.2 [facility] ID Date Data Source [id number] 09/15/2019 11:22:00 AM EDT [facility] [address] [place] [address] PHONE: [phone] FAX: [phone] Name .................. : JOE Knutson Acct Number.................. : [id number] ROOM. ................. : TR-05 Number ................... : [id number] Stay type ............. : E/R Discharge Date......... ... : 09/12/19 Admit Date ......... : 09/12/19 Admit Phys .................... : LADONNA CASAS Date of ....... : 1990 Family Phys ................... : UNKNOWN Phone .................. : [phone] Age ................................ : 29 Film# .................. .:[id number] Sex ................................. : F Unsigned transcriptions are preliminary reports and do not represent a medical or legal document CT HEAD W/O CONTRAST [id number] COMPLETE:09/12/19 18:16 RLB [id number] Reason(s): Head Pain CT OF THE HEAD [...] By Jae Goldstein M.D. , 09/15/19 11:22, [facility] Transcribe Initials: JIE , Transcribe Date: 09/12/19 21:02, Dictation Date: Copy for: PRINCESS DANIELLE via fax Copy for: EMERGENCY DEPT via [facility] Page 1 of 2 [facility] [address] [place] [address] PHONE: [phone] FAX: [phone] Name .................. : JOE Knutson Acct Number.................. : [id number] ROOM. ................. : TR-05 Number ................... : [id number] Stay type ............. : E/R Discharge Date......... ... : 09/12/19 Admit Date ......... : 09/12/19 Admit Phys .................... : VENERUS BR Date of ....... : 1990 Family Phys ................... : UNKNOWN Phone .................. : [phone] Age ................................ : 29 Film# .................. .:[id number] Sex ................................. : F Unsigned transcriptions are preliminary reports and do not represent a medical or legal document CT HEAD W/O CONTRAST [id number] COMPLETE:09/12/19 18:16 RLB [id number] Reason(s): Head Pain Copy for: 710 MED REC DISCHARGED Page 2 of 2 Name Value Range Interpretation Code Description Data Shelbi rce(s) Supporting Document(s) ID Date Data Source [id number] 09/12/2019 04:29:00 PM EDT [facility] 1 OrderSheet [facility] Emergency Department [address] [place] [address] Phone #: ext- [phone] 09/12/2019 16:21 Patient: NIMA DIAZ Sex: F : 1990 Age: 29yWEIGHT:107.9 kg (S) HEIGHT:62 inches (S) BMI:43.6ALLERGIES: Sulfa AntibioticsCHIEF COMPLAINT: headacheDIAGNOSIS: HeadacheLAB ORDERSOrder Description Priority Entered Acknowledged InitialedBlood Culture STAT 16:40 09/12/2019 16:56 Natalie,q10m X2 (Sched Aditya Henderson R.N.16:40 09/12/2019) PA;Blood Culture STAT 16:40 09/12/2019 16:56 [place],q10m X2 (Sched Aditya Henderson R.N.16:50 09/12/2019) PA;CBC [...] 16:56 Aditya Estrada R.N. PA; 2 OrderSheet [facility] Emergency Department [address] [place] [address] Phone #: ext- [phone] 09/12/2019 16:21 [id number] Sex: F : 1990 Age: 29yDIAGNOSTIC STUDY [...] mg IVP 16:40 09/12/2019 Ack'd: 16:57 17:13 [place],X1 dose: 10 mg Beatriz Alvarenga R.N.(NOW x1) PA; R.N.Benadryl 25 mg IVP 16:40 09/12/2019 Ack'd: 16:57 17:06 [place],X1 dose: 25 mg Beatriz Alvarenga R.N.(NOW x1) [...] rce(s) Supporting Document(s) ID Date Data Source [id number] 09/12/2019 04:29:00 PM EDT [facility] 1 Medication Reconciliation Report [facility] Emergency Department [address] [place] [address] Phone #: ext- [phone] 09/12/2019 16:21 Patient: NIAM DIAZ Sex: F : 1990 Age: 29yWeight: [...] 09/12/2019 5:05:00 PM 2 Medication Reconciliation Report [facility] Emergency Department [address] [place] [address] Phone #: ext- [phone] 09/12/2019 16:21 Patient: NIMA DIAZ Sex: F [...] rce(s) Supporting Document(s) ID Date Data Source [id number] 09/12/2019 04:29:00 PM EDT [facility] 1 Medication Administration Record [facility] Emergency Department [address] [place] [address] Phone #: ext- [phone] 09/12/2019 16:21 Patient: NIMA DIAZ Sex: F : 1990 Age: 29yWeight: 107.9 kgHeight/Length: 62 inBMI: 43.6ALLERGIES: Sulfa Antibiotics Date/Time Medication Administered Medication OrderedStart NS [IV] NS IV 500 mL Bolus: : Bolus 53766:[id number] 09/12/2019 Dose: IV Fluids mL (X1)Beatriz Estrada R.N. Bolus: 500 mL wide open---- Dispensed: 1000 mL bagSto p Site: #1 left [id number] 09/12/2019Beatriz Estrada R.N.Given REGLAN [IVP] (METOCLOPRAMIDE Reglan [...] rce(s) Supporting Document(s) ID Date Data Source [id number] 09/12/2019 04:29:00 PM EDT [facility] 1 General Instructions [facility] Emergency Department [address] [place] [address] Phone #: ext- [phone] 09/12/2019 16:21 Patient: [...] be triggered by emotional 2 General Instructions [facility] Emergency Department [address] [place] [address] Phone #: ext- [phone] 09/12/2019 16:21 [id number] Sex: F : 1990 Age: 29ystress or [...] salami Liver Avocados Bananas 3 General Instructions [facility] Emergency Department [address] [place] [address] Phone #: ext- [phone] 09/12/2019 16:21 Patient: [...] with spinning sensation (vertigo) 4 General Instructions [facility] Emergency Department [address] [place] [address] Phone #: ext- [phone] 09/12/2019 16:21 Patient: NIMA DIAZ Sex: F : 1990 Age: 29y Weakness in an arm or leg, or on one side of your face Difficulty talking or seeing [id number] [email or web address]. [address] [place] [address], [place] [address]. All rights reserved. This information is not intended as asubstitute for professional medical care. Always follow you r healthcare professional's instructions. You have been given the following additional information: Headache, Migraine, Classic(Electronically signed by SREE Martinez 09/12/2019 20:12) Name Value Range Interpretation Code Description Data Shelbi rce(s) Supporting Document(s) ID Date Data Source [id number] 09/12/2019 04:29:00 PM EDT [facility] 1 Clinical Report - Nurses [facility] Emergency Department [address] [place] [address] Phone #: ext- [phone] 09/12/2019 16:21 Patient: NIMA DIAZ Sex: F : 1990 Age: 29yTRIAGEArrived by private vehicle. Historian: patient. Accompanied by spouse.Triage time: 16:24 09/12/2019. Acuity: LEVEL 3.Chief Complaint: (Headache/vomiting).Alert. No acute distress.Onset. (3 months ago). ( Pt has pmh of idiopathic intracranial hypertension; Pt has had multiple VPshunts with multiple revisions. Pt has [facility]op at [facility] on 09/21 for revision of left GLASS FURNACE TENDER shunt with astent her her groin into the ventricles. Pt states "my ventricles keep collapsing". 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 --16:32 09/12/19 Beatriz Estrada R.N.Medication/allergy information source: the patient. --16:34 09/12/19 Beatriz Estrada R.N.ADDITIONAL SURGERIES:Appendectomy.Cholecystectomy.Excision ganglion cyst (bl wrist).Excision of lipoma.Exploratory laparotomy.Intracranial shunt [06/13/2018]. (Left side).Laparotomy.Lp shunt removal.Nasal septal deviation repair.Sinus Surgery.Spinal shunt surgery.Tonsillectomy.Ventriculo Peritoneal Shunt Surgery [07/2015].GLASS FURNACE TENDER shunt. --16:32 09/12/19 Beatriz Estrada R.N.HistoryPAST MEDICAL [...] Estrada R.N. 3 Clinical Report - Nurses [facility] Emergency Department [address] [place] [address] Phone #: ext- [phone] 09/12/2019 16:21 Patient: [...] Estrada R.N. 4 Clinical Report - Nurses [facility] Emergency Department [address] [place] [address] Phone #: ext- [phone] 09/12/2019 16:21 Patient: NIMA DIAZ Sex: F [...] --17:43 09/12/19 Beatriz Estrada R.N.Patient transported to [place] by wheelchair with instrument/control technician. --17:58 09/12/19 Beatriz Estrada R.N.Patient returned from radiology by wheelchair with instrument/control technician. --18:08 09/12/19 Beatriz Estrada R.N.18:08 09/12/19. [...] Estrada R.N. 5 Clinical Report - Nurses [facility] Emergency Department [address] [place] [address] Phone #: ext- [phone] 09/12/2019 16:21 [id number] Sex[facility] F : 1990 Age: 29y Rounding: [...] Patient verbalized understanding. Written instructions provided in Cypriot. The patient was discharged by the physician assistant mechanic. She was discharged home and accompanied by spouse. She left ambulatory and via private vehicle. Spouse driving. --19:09 09/12/19 Beatriz Estrada R.N. 6 Clinical Report - Nurses [facility] Emergency Department [address] [place] [address] Phone #: ext- [phone] 09/12/2019 16:21 Patient: NIMA DIAZ Sex: F : 1990 Age: 29yLocked/Released at 09/12/2019 19:10 by Beatriz Estrada R.N. Name Value Range Interpretation Code Description Data Shelbi e(s) Supporting Document(s) ID Date Data Source [id number] 09/12/2019 04:29:00 PM EDT [facility] 1 Clinical Report - Physicians/Mid Levels [facility] Emergency Department [address] [place] [address] Phone #: ext- [phone] 09/12/2019 16:21 Patient: NIMA DIAZ Sex: F [...] surgery. Tonsillectomy. Ventriculo Peritoneal Shunt Surgery [07/2015]. GLASS FURNACE TENDER shunt. Medications: HYDROcodone- Acetaminophen Oral (Tablet 5-325 mg), q3h as needed. tiZANidine HCl Oral 4 mg, q6h as needed. Hyoscyamine Sulfate Oral (Tablet 0.125 mg), q4h as needed. 2 Clinical Report - Physicians/Mid Levels [facility] Emergency Department [address] [place] [address] Phone #: ext- [phone] 09/12/2019 16:21 Patient: [...] 14.5) 3 Clinical Report - Physicians/Mid Levels [facility] Emergency Department [address] [place] [address] Phone #: ext- [phone] 09/12/2019 16:21 Patient: [...] Male GFR Interprentation 20-49 yrs >60 mL/min Fwzpzn84-58 yrs >56 mL/min Normal 60-69 yrs >49 mL/min Normal 70-79yrs>42 mL/min Normal 80 and above >35 mL/min Normal Female GFRInterpretation 20-39 yrs >60 mL/min Normal 40-49 yrs >58 mL/minNormal 50-59 yrs >51 mL/min Normal 60-69 yrs >45 mL/min Jdwait82-75 yrs >39 mL/min Normal 80 and above >32 mL/min NormalLactic Acid: (SOPHY: 09/12/2019 16:58) ( MsgRcvd 09/12/2019 17:16) Final results Test Result Flag Units (Reference) LACTIC ACID 2.1 MMOL/L (0.2 - 2.2)PT/PTT: (SOPHY: 09/12/2019 16:58) ( MsgRcvd 09/12/2019 17:21) Final results Test Result Flag Units (Reference) 4 Clinical Report - Physicians/Mid Levels [facility] Emergency Department [address] [place] [address] Phone #: ext- [phone] 09/12/2019 16:21 Patient: NIMA DIAZ Sex: F : 1990 Age: 29y PROTIME 11.2 SECONDS (11.0 - 15.5) INR 0.80 L (0.93 - 1.23) PTT 27.8 SECONDS (24.8 - 36.7) \\BLDo\\INR INTERPRETATION\\BLDx\\ Therapeutic range for Coumadin andrelated oral anticoagulants. - International Normalized Ratio (INR): 2.0 - 3.0 for VenousThrombosis, Pulmonary Embolus, Tissue heart valves, Acute [place] Atrial Fibrillation, Valvular heart diseaseand recurrent Systemic Embolism. - International Normalized Ratio (INR): 2.5 - 3.5 forMechanical Prosthetic valve.Urinalysis: (SOPHY: 09/12/2019 16:40) ( [facility] 09/12/2019 17:31) Final results Test Result [...] (NORMAL: NONESed. Rate: (SOPHY: 09/12/2019 16:58) ( [facility] 09/12/2019 17:25) Final results Test Result Flag Units (Reference) SED RATE 10 mm/hr (0 - 20) SED RATE REENTER 10CRP: (SOPHY: 09/12/2019 16:58) [facility]12[facility] 17:28) Final results Test Result Flag Units (Reference) CRP-HS 6.12 H MG/L (1.00 - 3.00) CDC/AHS HS-CRP CUT-OFF: RELATIVE RISK: <1.0 mg/LLow 1.0 - 3.0 mg/L Average >3.0 mg/LHigh Optimally, the average of HS-CRP results repeated two weeks apart should be used forrisk assessment.Lipase: (SOPHY: 09/12/2019 16:58) ( [facility] 09/12/2019 17:28) Final results Test Result Flag Units (Reference) LIPASE 36 U/L (13 - 60)CT Head W/O Cont: (SOPHY: 09/12/2019 16:40) ( MsgRcvd 09/12/2019 18:16) In ProgressCT HEAD W/O CONTRASTReason(s): Head Pain 5 Clinical Report - Physicians/Mid Levels [facility] Emergency Department [address] [place] [address] Phone #: rac- [phone] 09/12/2019 16:21 Patient: NIMA DIAZ Sex: F : 1990 Age: 29y TRANSPORTATION: IV? O2? Oxygen?(No) Room: ED.PROGRESS AND PROCEDURESCourse of Care: 18:36 Sep 12 2019. Evaluation after observation and results of tests back. (DiscussedCT scan, labs and pt will f/u with [facility].). Patient counseled in person [...] patient. 6 Clinical Report - Physicians/Mid Levels [facility] Emergency Department [address] [place] [address] Phone #: ext- [phone] 09/12/2019 16:21 Patient: NIMA DIAZ Sex: F : 1990 Age: 29y(Electronically signed by SREE Martinez 09/12/2019 20:12) Name Value Range Interpretation Code Description Data Shelbi rce(s) Supporting Document(s) ID Date Data Source [id number] 09/17/2019 06:07:00 PM EDT [facility] [id number] Name Value Range Interpretation Code Description Data Shelbi rce(s) Supporting Document(s) Bacteria identified in Blood by Culture [facility] NO GROWTH AFTER 5 DAYS ID Date Data Source [id number] 09/19/2019 11:57:00 AM EDT [facility] Name Value Range Interpretation Code Description Data Shelbi rce(s) Supporting Document(s) CULTURE BLOOD [facility] Ho spital _CULTURE BLOOD_{ PRELIM [place] [address] CLIA# [id number] SEE SCANNED REPORT ID Date Data Source [id number] 09/12/2019 05:28:00 PM EDT [facility] Name Value Range Interpretation Code Description Data Shelbi rce(s) Supporting Document(s) Lipase [Enzymatic activity/volume] in Serum or Plasma 36 U/L 13 - 60 [facility] ID Date Data Source [id number] 09/12/2019 05:28:00 PM EDT [facility] Name Value Range Interpretation Code Description Data Shelbi rce(s) Supporting Document(s) C reactive protein [Mass/volume] in Serum or Plasma by High sensitivity method 6.12 MG/L 1.00 - 3.00 H [facility]/S HS-CRP CUT-OFF: RELATIVE RISK: <1.0 mg/L Low 1.0 - 3.0 mg/L Average >3.0 mg/L High Optimally, the average of HS-CRP results repeated two weeks apart should be used for risk assessment. ID Date Data Source [id number] 09/12/2019 05:28:00 PM EDT [facility] Name Value Range Interpretation Code Description Data Shelbi rce(s) Supporting Document(s) COMPREHENSIVE METABOLIC PANEL [facility] COMPREHENSIVE METABOLIC PANEL Sodium [Moles/volume] in Serum or Plasma 139 mEq/L 134 - 153 [facility] Potassium [Moles/volume] in Serum or Plasma 3.8 mEq/L 3.6 - 5.0 [facility] Chloride [Moles/volume] in Serum or Plasma 106 mEq/L 98 - 107 [facility] Carbon dioxide, total [Moles/volume] in Serum or Plasma 21 MEQ/L 22 - 30 L [facility] Glucose [Mass/volume] in Serum or Plasma 100 MG/DL 65 - 110 [facility] BUN 8 MG/DL 7 - 21 [facility] al Creatinine [Mass/volume] in Serum or Plasma 0.7 MG/DL 0.7 - 1.5 [facility] BUN/CREAT 11 8 - 27 [facility] al Protein [Mass/volume] in Serum or Plasma 7.0 G/DL 6.3 - 8.2 [facility] Albumin [Mass/volume] in Serum or Plasma 4.2 G/DL 3.9 - 5.0 [facility] Globulin [Mass/volume] in Serum by calculation 2.8 GM/DL 2.4 - 3.2 [facility] A/G RATIO 1.5 0.8 - 2.0 [facility] Calcium [Mass/volume] in Serum or Plasma 8.9 MG/DL 8.4 - 10.2 [facility] Bilirubin.total [Mass/volume] in Serum or Plasma <0.7 MG/DL 0.2 - 1.3 [facility] Alkaline phosphatase [Enzymatic activity/volume] in Serum or Plasma 76 U/L 38 - 126 [facility] Aspartate aminotransferase [Enzymatic activity/volume] in Serum or Plasma 20 U/L 5 - 40 [facility] Alanine aminotransferase [Enzymatic activity/volume] in Seru m or Plasma 26 U/L 7 - 56 [facility] Anion gap 3 in Serum or Plasma 12.0 mmol/L 8.0 - 16.0 [facility] AGE 29 yrs [facility] al NON-AA GFR >60 mL/min [facility] ital AFR AMER GFR >60 mL/min [facility] spital Male GFR In terprentation 20-49 [...] >32 mL/min Normal ID Date Data Source [id number] 09/12/2019 05:25:00 PM EDT [facility] Name Value Range Interpretation Code Description Data Shelbi rce(s) Supporting Document(s) Erythrocyte sedimentation rate by Westergren method 10 mm/hr 0 - 20 [facility] SED RATE REENTER 10 [facility] ID Date Data Source [id number] 09/12/2019 05:21:00 PM EDT [facility] Name Value Range Interpretation Code Description Data Shelbi rce(s) Supporting Document(s) Prothrombin time (PT) 11.2 SECONDS 11.0 - 15.5 [facility] INR in Platelet poor plasma by Coagulation assay 0.80 0.93 - 1. 23 L [facility] aPTT in Blood by Coagulation assay 27.8 SECONDS 24.8 - 36.7 [facility] \\BLDo\\INR INTERPRETATION\\BLDx\\ Therapeutic range for Coumadin and related oral anticoagulants. - International Normalized Ratio (INR): 2.0 - 3.0 for Venous Thrombosis, Pulmonary Embolus, Tissue heart valves, Acute [place] Atrial Fibrillation, Valvular heart disease and recurrent Systemic Embolism. - International Normalized Ratio (INR): 2.5 - 3.5 for Mechanical Prosthetic valve. ID Date Data Source [id number] 09/12/2019 05:20:00 PM EDT [facility] Name Value Range Interpretation Code Description Data Shelbi rce(s) Supporting Document(s) CBC W/AUTOMATED DIFF [facility] COMPLETE BLOOD COUNT Leukocytes [#/volume] in Blood by Automated count 8.4 10^3/uL 4.2 - 1 1.0 [facility] Erythrocytes [#/volume] in Blood by Automated count 4.44 10^6/uL 4. 20 - 5.40 [facility] Hemoglobin [Mass/volume] in Blood 13.8 g/dL 12.0 - 16.0 [facility] Hematocrit [Volume Fraction] of Blood by Automated count 42.6 % 3 7.0 - 47.0 [facility] Erythrocyte mean corpuscular volume [Entitic volume] by Auto mated count 95.9 fL 81.0 - 101 [facility] Erythrocyte mean corpuscular hemoglobin [Entitic mass] by Automated count 31.1 pg 27.0 - 34.0 [facility] Erythrocyte mean corpuscular hemoglobin concentration [Mass/volume] by Automated count 32.4 g/dL 31.0 - 36.0 [facility] Erythrocyte distribution width [Ratio] by Automated count 12.4 % 11.5 - 14.5 [facility] Platelets [#/volume] in Blood by Automated count 311 10^3/uL 150 - 45 0 [facility] Platelet mean volume [Entitic volume] in Blood by Automated count 9.3 fL 7.4 - 10.4 [facility] Neutrophils/100 leukocytes in Blood by Automated count 61.0 % 37. 0 - 80.0 [facility] Lymphocytes/100 leukocytes in Blood by Manual count 28.2 % 25.0 - 40.0 [facility] Monocytes/100 leukocytes in Blood by Automated count 6.9 % 3.0 - 8.0 [facility] Eosinophils/100 leukocytes in Blood by Automated count 3.0 % 0.0 - 7.0 [facility] Basophils/100 leukocytes in Blood by Automated count 0.7 % 0.0 - 2.5 [facility] %IG 0.2 % 0.0 - 0.0 H [facility] al %NRBC 0.0 % 0.0 - 0.0 [facility] al Neutrophils [#/volume] in Blood by Automated count 5.15 10^3/uL 2.00 - 6.90 [facility] Lymphocytes [#/volume] in Blood by Automated count 2.38 10^3/uL 0.60 - 3.40 [facility] Monocytes [#/volume] in Blood by Automated count 0.58 10^3/uL 0.00 - 0.90 [facility] Eosinophils [#/volume] in Blood by Automated count 0.25 10^3/uL 0.00 - 0.70 [facility] Basophils [#/volume] in Blood by Automated count 0.06 10^3/uL 0.00 - 0.20 [facility] [facility] #IG 0.02 10^3/uL 0.00 - 0.10 [facility]ital #NRBC 0.00 10^3/uL 0.00 - 0.00 [facility] MANUAL DIFF NOT INDICATED [facility] RBC MORPH NOT INDICATED [facility] spital ID Date Data Source [id number] 09/12/2019 05:16:00 PM EDT [facility] Name Value Range Interpretation Code Description Data Shelbi rce(s) Supporting Document(s) Lactate [Moles/volume] in Serum or Plasma 2.1 MMOL/L 0.2 - 2.2 [facility] ID Date Data Source [id number] 09/19/2019 11:57:00 AM EDT [facility] Name Value Range Interpretation Code Description Data Shelbi rce(s) Supporting Document(s) CULTURE BLOOD [facility] spital _CULTURE BLOOD_{ PRELIM TEST PERFORMED AT [address] [address] CLIA# [id number] SEE SCANNED REPORT ID Date Data Source [id number] 09/12/2019 05:28:00 PM EDT [facility] Name Value Range Interpretation Code Description Data Shelbi rce(s) Supporting Document(s) [facility] S[facility] R [facility] al COLOR yellow NORMAL: Yellow [facility] CLARITY clear NORMAL: Clear [facility] Specific gravity of Urine by Test strip 1.020 1.001 - 1.030 [facility] pH 5 5 - 9 [facility] al Glucose [Mass/volume] in Urine by Test strip NORM NORMAL: Negat [facility] Bilirubin.total [Presence] in Urine by Test strip NEG NORMAL: Negative [facility] Ketones [Presence] in Urine by Test strip NEG NORMAL: Negative [facility] Protein [Mass/volume] in Urine by Test strip 15 NORMAL: Negat [facility] Nitrite [Presence] in Urine by Test strip NEG NORMAL: Negative [facility] BLOOD NEG NORMAL: Negative [facility] Leukocyte esterase [Presence] in Urine by Test strip NEG JESICA L: Negative [facility] Urobilinogen [Mass/volume] in Urine by Test strip NOR less melvi n 1.0 mg/dL [facility] MICROSCOPIC See Below [facility] ital WBC 1 - 3 NORMAL: NONE SEEN [facility] Erythrocytes [#/volume] in Urine by Test strip 1 - 3 NORMAL: NON E SEEN [facility] EPITHELIAL MODERATE NORMAL: NONE SEEN A [facility] Bacteria [Presence] in Urine sediment by Light microscopy Tr amanda NORMAL: NONE SEEN [facility] Crystals [type] in Urine sediment by Light microscopy See Below [facility] CALCIUM OX 3+ NORMAL: NONE SEEN A [facility] ID Date Data Source [id number] 08/03/2019 09:04:51 PM EDT [facility] Hospital Name Value Range Interpretation Code Description Data Shelbi rce(s) Supporting Document(s) Discharge Summary [facility] GGZTWh5vHlURSqEr37/BWQcjNXXeb5JkYQriLMg4CRzzCFWjB2KzVZM5tI0mBIF1LKyGKeDuMqUlPBVk [facility] [file] npZDviHyCkTBVfYP5aCEOXBe2+ZZegjMUzhHoxAVEUNeG2VAh4PFwcJRZMEe7K ID Date Data Source [id number] 07/26/2019 04:35:31 AM EDT [facility] Name Value Range Interpretation Code Description Data Shelbi rce(s) Supporting Document(s) ED Provider Note [facility] OCDMVj9iPhLNChPs20/FKYxhXMCfc5ZoWEunMMr7PQgqWVPiR5AmXPL3wJ8rYXV7AJuRBaZmCtNxHGZz lbm [file] VoFVOnUcV7WBW0U4KkPf9tTSQZVf3+IBwveLKrbPowIBQWDqY7Jnp5KPjfCLWYOt4S ID Date Data Source [id number] 07/23/2019 02:46:29 PM EDT [facility] Name Value Range Interpretation Code Description Data Shelbi rce(s) Supporting Document(s) Progress Note [facility] WZUGQp0yPiQVRkQh69/XAAojWRLjy5ZlPPugYBv9OPkgNBEzV7ShEXC1mQ6gFRB2UTzSOoIfNbDjGQNq lbm [file] OoLp0aVDEACb1+TEewdYVpeLwqZHNIXpJ0VUHTPxIuDZ2MKSx= ID Date Data Source [id number] 07/23/2019 09:05:00 AM EDT [facility] DATE OF EXAMINATION: 07/21/2019 13:45 EDT CHEST 2 VIEWS HISTORY: Chest pain TECHNIQUE: PA and lateral radiographs of the chest COMPARISON: 10/05/2018 FINDINGS: No evidence of focal consolidation, pneumothorax or large pleural effusion.Lungs are clear. Mediastinal structures are unremarkable. No aggressive osseouslesions. Right-sided GLASS FURNACE TENDER shunt is noted. IMPRESSION: No focal consolidation. Electronically signed in PS360 by: Lola Strickland M.D. 07/23/2019 8:59 EDT Name Value Range Interpretation Code Description Data Shelbi rce(s) Supporting Document(s) ID Date Data Source [id number] [facility] Interpretation Code Description Data Shelbi rce(s) Supporting Document(s) Prothrombin time (PT) 12.6 s 12.5-14.9 [facility] INR in Platelet poor plasma by Coagulation assay 0.94 [facility] Routine intensity oral anticoagulation I NR is typically 2.0-3.0. Target INR must be clinically individualized. ID Date Data Source [id number] 07/23/2019 06:33:02 AM [facility] Name Value Range Interpretation Code Description Data Shelbi rce(s) Supporting Document(s) Albumin [Mass/volume] in Serum or Plasma by Bromocresol green (BCG) dye binding method 3.5 g/dL 3.5-5.2 [facility] Bil[facility].total [Mass/volume] in Serum or Plasma 1.0 mg/dL <1.2 [facility] Calcium [Mass/volume] in Serum or Plasma 8.7 mg/dL 8.6-10.0 [facility] Chloride [Moles/volume] in Serum or Plasma 108 mmol/L 98-107 H [facility] Creatinine [Mass/volume] in Serum or Plasma 0.60 mg/dL 0.50-0.90 [facility] Glucose [Mass/volume] in Serum or Plasma 102 mg/dL 70-140 [facility] Alkaline phosphatase [Enzymatic activity/volume] in Serum or Plasma 236 U/L 35-104 H [facility] Potassium [Moles/volume] in Serum or Plasma 4.0 mmol/L 3.4-5.1 [facility] Protein [Mass/volume] in Serum or Plasma 6.3 g/dL 6.4-8.3 L [facility] Sodium [Moles/volume] in Serum or Plasma 140 mmol/L 136-145 [facility] Aspartate aminotransferase [Enzymatic activity/volume] in Serum or Plasma 678 U/L <32 H [facility] Urea nitrogen [Mass/volume] in Serum or Plasma 8 mg/dL 6-20 [facility] Osmolality of Serum or Plasma by calculation 289 mosm/kg 275-300 [facility] Creatinine/Urea nitrogen [Mass Ratio] in Serum or Plasma 13 [facility] Bicarbonate [Moles/volume] in Serum 20 mmol/L 22-29 L [facility] Alanine aminotransferase [Enzymatic activity/volume] in Seru m or Plasma 786 U/L <33 H [facility] Confirmed Anion gap 3 in Serum or Plasma 13 mmol/L 8-15 [facility] Albumin/Globulin [Mass Ratio] in Serum or Plasma 1.3 [facility] Glomerular filtration rate/1.73 sq M pre dicted among non-blacks [Volume Rate/Area] in Serum or Plasma by Creatinine-based formula (MDRD) >6 0 [facility] Glomerular filtration rate/1.73 sq M pre dicted among blacks [Volume Rate/Area] in Serum or Plasma by Creatinine-based formula (MDRD) >60 [facility] ID Date Data Source [id number] 07/23/2019 07:15:56 AM EDT [facility] Name Value Range Interpretation Code Description Data Shelbi rce(s) Supporting Document(s) Leukocytes [#/volume] in Blood by Automated count 7.8 10*3/uL 4-10 [facility] Confirmed Erythrocytes [#/volume] in Blood by Automated count 3.92 10*6/uL 4.1- 5.3 L [facility] Hemoglobin [Mass/volume] in Blood 12.6 g/dL 11.5-15.5 [facility] Hematocrit [Volume Fraction] of Blood by Automated count 37.2 % 3 6-45 [facility] Erythrocyte mean corpuscular volume [Entitic volume] by Auto mated count 94.9 fL 80-96 [facility] Erythrocyte mean corpuscular hemoglobin [Entitic mass] by Automated count 32.1 pg 27-33 [facility] Erythrocyte mean corpuscular hemoglobin concentration [Mass/volume] by Automated count 33.8 g/dL 32.0-36.0 [facility] E[facility]th[facility] distribution width [Ratio] by Automated count 13.8 % 11.5-14.5 [facility] Platelets [#/volume] in Blood by Automated count 246 10*3/uL 150-400 [facility] Confirmed ID Date Data Source [id number] 07/22/2019 09:13:29 PM EDT [facility] Name Value Range Interpretation Code Description Data Shelbi rce(s) Supporting Document(s) Progress Note [facility] VZLJDm8lAtVLSlVb02/UZMcpGGMvr1YnZOjpCDk8KZdvNONyO9YpNTZ9eL2wRNG1ANjYBgMqLjIcHVT3 lbm [file] DvT8TXWjKLBgRU0gPXXGRj4+NXfkrAOtwYtsLBIXWiB6OaoIPwOyNK2YWNi= ID Date Data Source [id number] 07/22/2019 08:50:47 PM EDT [facility] Hospital Name Value Range Interpretation Code Description Data Shelbi rce(s) Supporting Document(s) Progress Note [facility] YNSGNd2uQwCLNoOr17/FUZndZOXxo2ZhEKycPXw9FTjeRANkQ5DsFHI3pT0xOKA7ZGwTKjNzPcJsLUH1 lbm [file] R8CxOgQA9ZHu3RXbB7JVS8xILmAr5HPiY3HxFUPbWhGL1RSNq= ID Date Data Source [id number] 07/22/2019 03:40:12 PM EDT [facility] US DOPPLER ABDOMEN PELVIS ORGANS LIMITED [id number] RESULTInterpreted by:Castro Pittman MDINDICATION: 29-year-old female presenting [...] rce(s) Supporting Document(s) ID Date Data Source [id number] 07/22/2019 03:40:12 PM EDT [facility] US ABDOMEN LIMITED [id number] RESULTInte rpreted by:Castro Pittman MDINDICATION: 29-year-old female [...] rce(s) Supporting Document(s) ID Date Data Source [id number] 07/22/2019 12:00:04 PM EDT [facility] Name Value Range Interpretation Code Description Data Shelbi rce(s) Supporting Document(s) Consultation [facility] MTAYPb9nSjTHJpTz91/KVCkhDOAjg5TbVZmwLLv8TPiiFOHxU7ElBES8xO4mHOZ8QHtLVoLjSiCbAKW0 lbm [file] I6TiYwRoC4SD3dGHHJJb7+XRqqxSGtdNiaSSRFKkK8GOY0JWxpXMGBWc0Z ID Date Data Source [id number] 07/22/2019 11:55:02 AM EDT [facility] Name Value Range Interpretation Code Description Data Shelbi rce(s) Supporting Document(s) Consultation [facility] TUWHUp2iEkXCFpGz79/FGUwfOIOxc2RzJYvdCYn3QHuiEIHdU7EvCGL6hB1uCHE4EKpSDdMgTvKoMJU6 lbm [file] l7EuorH4ejIdMPkbBxh8FI7YRKSMR9UZPa== ID Date Data Source [id number] 07/22/2019 11:43:18 AM EDT [facility] Name Value Range Interpretation Code Description Data Shelbi e(s) Supporting Document(s) History and Physical [facility] HRXTXn7vLfATYrFa35/RDYewXXOge7NlYNwgMIm7QJxaRBLoE4XbZEV1hY9bMMR4OUfVAsPgCjPxZET7 lbm [file] ICAgICAgICAgICAgICAgICAgICAgICAgICAgICAgICAgICAgICAgICAgICAgICAgICAgICAgICAgICAg GJAbOEWwUVRnOG5XPLVgPPSoTUKoVWCeHWWzDKAyDW AgICAgICAgICAgICAgICAgICAgICAgICAgICAgICAgICAgICAgICAgICAgICAgICAgICAgICAgICAgIC FfMCUdJBOqJBVzMEEnBGTuLWAxID5JHRDxIMKdYAKjOSInLPBxCIAqDWRiIKLvIIKzHIViYIXbAUGmYG AgICAgICAgICAgICAgICAgICAgICAgICAgICAgICAg NPGrXKFiGEGrQMZbYKUjYQLrCHVxGJQnZVGoUUHhOM0QNPWdLNTmHHVzRCQqXMIeBLVxHDJdLDWtULTh ICAgICAgICAgICAgICAgICAgICAgICAgICAgICAgICAgICAgICAgICAgICAgICAgICAgICAgICAgICAg WGNbXWLlWNKmJDRxVL0HHCAbMWPrONEdECPzXNRyFO AgICAgICAgICAgICAgICAgICAgICAgICAgICAgICAgICAgICAgICAgICAgICAgICAgICAgICAgICAgIC BpTRQiHSTvJAPcDIOpBIXvDTLjFPLbDX7YCCVgOERwTWDcHHJlJSIhHJPmHZHhVIUzOELzUGKzBCAqZY AgICAgICAgICAgICAgICAgICAgICAgICAgICAgICAg BSQxDAAnQXPxCOLzUGEzZNYuDEZfQRDeRFMnRVBnXGPzPZ5YKBJsGPQiYYTgBKIlTXLzAPIoMGSaDLDv ICAgICAgICAgICAgICAgICAgICAgICAgICAgICAgICAgICAgICAgICAgICAgICAgICAgICAgICAgICAg INKkJZLzCBJgFVIeXUYhIV9SKSHbFRBxFXYeDZMmZF AgICAgICAgICAgICAgICAgICAgICAgICAgICAgICAgICAgICAgICAgICAgICAgICAgICAgICAgICAgIC YaPLXkKNNqCDQdDKYjVYCiJXZqEQEwGWIaEC8GWMXbJAEwTXIcFKZjSLKjRIGkUOVfQSWxFTYaRZGcLR AgICAgICAgICAgICAgICAgICAgICAgICAgICAgICAg VTUuAJXpTTLyKZYnXDSmORQpVUTsMHCdCFXaVXMbXQTiZEXwVT5YGZEjKRRmCHDgLEKtDPXvIGZpTXAs ICAgICAgICAgICAgICAgICAgICAgICAgICAgICAgICAgICAgICAgICAgICAgICAgICAgICAgICAgICAg LFHdSDRlJGBcGXFyBSRySACbEV6BHF98fBOgw0H2RY LnEJ5lvnd/Oj4MWVeknnIrtXHoKJ1BAfJaCV9iqk2SIkTkLT3tux2LRFhPVqEgA8P0iAMqROAiLBCPSk FlT06rNZygEn98CXxfORFhSgVyOUc6Rr0LZbGpP0qsPWGoCdT9ZRUcGyK2FZPyTlJ4VXMbVxOtRQKrVA ZpHTTzFWDWPSW3BAShSsFsWnYeLJQoHOndPQVKAL9Z ArTsQ7ZsiX64XIkXMn4+DXirttKiEsnLTzEiFEGrs8ZeCJs1BL0VWNPxBtopi5MhJTGbVMJPKRgyVV1L PVB6DKDzVFNpDo8FJVTbG042vuRqBF5EXz5TXlWeRA8mpc1GVHTzRGUcPtdOQvo9TOkdGP0VrMGqJPxZ VnWsGdsbRCzfXAZgRXANaJA4oO2vCQ0UQEW2FPNbFY jqIgNdGOVtWKq2JETOOStMAoHuL4Uge7GsRnI2UNBgUmZsYYqrKEUsApT8MK22mXlxES8RHRAyGMVeXL 70TVOnZMUfCp5WDd1UQbQqSF3isn1KXJZtJKRwJtuINsa8GVzxZD6CyNTnC8DrxOWeg0qTUfZiD6OUTZ XjGZQaFi1ICWXrYeAkNCGvTLctSP8sVWYwWRTPnOor cyW8ZI6DKL8zvqZpAR8WSeNuAd6lEl9DJfKuG6UjK1HyDQHfFILHJQvaLU0GHArfTA0wEM5Dz0UHoWIw aQ6rkv3CUMGtJHFtTqzdbg2RHowsH3Z8kDspDSNiODHcLNMXNLixBY2GNHViTYP4GEE5KJDgIVQZUjIn E00lNX1IG0Vww47fWkI7WNGbGuIeZGwbAU83sOnpgs XnuVGxmBmcMO4YTg3+JQdbhqRaWjoYLzwpWCFBSuFmSISVGbBlASLmMWAdFXAvRbN7VvShSx4HMTScBA DcYOLjMgQiOYUmRQOuDVxoYNUqUKD9DYd9GVXhFVQkOR7RDqLqCPKrAEe4YhAbNILjFWZkwv8BFGRsZI WoXIB4BgMqLHWjCWIeOZfrTVXzJWKzZvM8NLBbDEGt ER5ODbNeDFSzEUU9IOjoRCGwFDEqao2QPRTpYVJpOxNaZsPwJFWsGBXsAKvjULKmHCN5HlSySGXoCUWy TJ5OYdAtHNIeMCAjDWVxPKOrISCfgh0NGRUcABLgXAY5SWGtTUOlVYLjGKihMIHkBTOkGJG6UGNgYNPt TV8WOeHdJTOoJKH5VZXnXVMbIBHrbr7FNOOwILZeQi B1IGLhVTXwKWUpROhoUGRlNTW6FSE6DORmYCTbOT7GTkUfQGYvYbOzQSNfPYPfUVXaxk2OMOTnUBLmID HjOZEiCRVfUQPrNVaxHJJuGOR7BtNnSCSaPTHsDC0DGaCjYMUmBiG5ZczdTUMkYPXgwj8BKHYyOZLmWz a2VZDcIKAtKISwCFlgNRSlDIT5NIH9RGLgINEkXL0I GqYnFSAlZnppEsZfTDWuXKHhoz1AOODiMBWhQTJuZXLrIRCeMYTeFPyrSSKyAAA5ZYE6GELpDPWgKB2Z NmLrNLAuHfB0UwHyJWAjVJSrxa5GRPBvPZHmZCS1QQXsMRTyFUWtIAzzWIZiPJEsTXVcZSHdCQQkYA8Q UmAqTLUiHkO7CYZsHUNgMBTmmb7JIRXgHEPrIiGgVC JtWRTpJIBjTAluYDBmMZYnAnV8TXNyTJNbRK7PLkTuGKGvFdPsTjWnNRLjDIIsku5SACLkQAUyWrC1OE EoEJFkYWBmJLcvDHIeSRYlXUwuYOGiSQJcZY0OSaXkCEAbBYE0RYEdSFSeLUCzdm1VQUIaBXT7DNF4Fm ZiGNYjSNIsGOljQJJxVTV0AXbnLYJbCIBaTM5PAxBx IPZlKEY4IbBxKKWgEQCugp2MYOQkZTM7DMy8ZmWbMJDtKRKgMEfdJFVnECH3YROdQDIoVJMaUM5ZFnQr AYDiCZR5QGtvQSYnQZPjwu6RNJXqCXC7QbU6EuTsLPDvGXMhKMgfFQGvQQA3BcP7JZBfLDRgGC5UUmLs WZSuBGfwPXJaXGRkHOTjfc0EHBPjBJM7UUS2BfRlAG PdHMPpKWzlITIrLAM4KtQfMNWbKUZdCV2IFuXkFJoyZTBDKkj3YPkkD1a4FYV2CS5PF7Vdh5UsSXSaBK FQVNccCP2urlEgVGCaCp0JU5tSRgi2CMJlUdLoXwG1TKNyTQL7MZO9IkEtWdXzHcK0AaWaRt8nTAYbIk ZmTMRcHWxaQBXlSeRgENLnBmCqKGXbHIx7HhEgOpAf MY7XXt0OCsN8FKF5kUThGs9YUJw8JaAFIiWxPU2QNTv= ID Date Data Source [id number] 07/22/2019 10:56:10 AM EDT [facility] Name Value Range Interpretation Code Description Data Shelbi rce(s) Supporting Document(s) [facility] JEHHNu7eWqQTFuSw11/MMYyqULAjm1XaVWoiZAb9HOrsZWAxI5KeYHC2yH7bXEK8ZLhTOoRxMfEeXBJ6 lbm [file] h3ZaQ7KJBrSje+JK0aUDd+Ap8Hs5FiwlJ7arCkTAf6DfTcYY2YUEGIO4CTRj== ID Date Data Source [id number] 07/22/2019 10:55:40 AM EDT [facility] Name Value Range Interpretation Code Description Data Shelbi rce(s) Supporting Document(s) Progress Note [facility] ICOLXz6rVpWPSxAb80/CLBjzZSPye8KpGFduRXc7THzmTWCnE8UqKKI7oH3cNPU7YEpSChBeSoDnRIJ8 lbm [file] 93qaJHdpcdWezZLZbBM/heel finisher+AsT2SNRDr57//XNUjOtKvBHDBm8nCzcbOky4jt7aX8PBGSr/CUnuSwnqa [file] Td2DHULpQPOXDuTfEL6LMJe= ID Date Data Source [id number] 07/22/2019 08:41:02 AM EDT [facility] Name Value Range Interpretation Code Description Data Shelbi rce(s) Supporting Document(s) Progress Note [facility] JWOLPw2iYqYQPvFv43/GMIydDWEbo9LmYTajGCf3SGuxQHGiI8EiVLU2sE0wCXT2RHbGCfOvEwLgQEF9 lbm [file] AgICAgICAgICAgICAgICAgICAgICAgICAgICAgICAgICAgICAgICAgICAgICAgICAgICAgICAgICAgIC AgICAgICAgICAgICAgICAgICAgICAgICAgICAgICAgICAgDQogICAgICAgICAgICAgICAgICAgICAgIC AgICAgICAgICAgICAgICAgICAgICAgICAgICAgICAg ICAgICAgICAgICAgICAgICAgICAgICAgICAgICAgICAgICAgICAgICAgICAgDQogICAgICAgICAgICAg ICAgICAgICAgICAgICAgICAgICAgICAgICAgICAgICAgICAgICAgICAgICAgICAgICAgICAgICAgICAg ICAgICAgICAgICAgICAgICAgICAgICAgICAgDQogIC AgICAgICAgICAgICAgICAgICAgICAgICAgICAgICAgICAgICAgICAgICAgICAgICAgICAgICAgICAgIC AgICAgICAgICAgICAgICAgICAgICAgICAgICAgICAgICAgICAgDQogICAgICAgICAgICAgICAgICAgIC AgICAgICAgICAgICAgICAgICAgICAgICAgICAgICAg ICAgICAgICAgICAgICAgICAgICAgICAgICAgICAgICAgICAgICAgICAgICAgICAgDQogICAgICAgICAg ICAgICAgICAgICAgICAgICAgICAgICAgICAgICAgICAgICAgICAgICAgICAgICAgICAgICAgICAgICAg ICAgICAgICAgICAgICAgICAgICAgICAgICAgICAgDQ ogICAgICAgICAgICAgICAgICAgICAgICAgICAgICAgICAgICAgICAgICAgICAgICAgICAgICAgICAgIC AgICAgICAgICAgICAgICAgICAgICAgICAgICAgICAgICAgICAgICAgDQogICAgICAgICAgICAgICAgIC AgICAgICAgICAgICAgICAgICAgICAgICAgICAgICAg ICAgICAgICAgICAgICAgICAgICAgICAgICAgICAgICAgICAgICAgICAgICAgICAgICAgDQogICAgICAg ICAgICAgICAgICAgICAgICAgICAgICAgICAgICAgICAgICAgICAgICAgICAgICAgICAgICAgICAgICAg ICAgICAgICAgICAgICAgICAgICAgICAgICAgICAgIC AgDQogICAgICAgICAgICAgICAgICAgICAgICAgICAgICAgICAgICAgICAgICAgICAgICAgICAgICAgIC AaXECdNPBfUAYrUBVaCCUxICTrFWIuULYrZVFwSEOzAJIgNXOnIHKvJFBcTDs3C2fdPDDiLUImMW9sLI d3Jz8+KFqDAyWjFBL1nwKmgO0BTI7eb9LmIKfhJEYv o7VbNQd0AG0NQBTtDFxnLE1YRLclhl6NXYKlLMRpjBCFe4cdStUrHBT8QAVuPeqmOM8IGPBtR8xyvoIj JZDgYQAXQR8RXaZlA2OppX43RGJFTg4+KLyaowQeSkhGNtOyTFJki5DvGIs1NK1ZBXAfOazda4TvRkDk FADWJNxmRD8YTVC5QCHpOZSnHk5OVQNvT033ivKfRA 2TCc8IJrIlVU3mlm3WQuBwFOKbYceCZun7DAdoSM4XaVEbCTdIpf5yvxQmbdDGj2EpblWcbFXLDSK2lM VrY1vnM2qcD6HxZbesnnxgRNBgTIFpRU3kTQ3mLVVtUYY8VaQ1KCXOFY7CSFFbATHgtBMaRNNbPLBNKQ 4HTZwrZFO9GDEgxgMnuJOlSRvdCD0HDOKskvJzTyKj MCBSDQo+Aw8XZA0xd2LyVVejNhGsOI1ykk3GDTpORdYfL5T7sXRjU3Z0AMzlAg3XEQPjXSBfXGimHOGH PUzqQZ7QHI0pubM8LK0ToVBsAWHrJBHwuTUrYFs1Q96jfYXnGEvqWY5ZRWX+Tiffany+Gh3UICMvYDBmACEh KwIjWZKQUtBkS3WsE0NZk7BbB6YdPK93fFisixLxRA ymIR6VDM3oAPVyGXBJQP2LzPTamO3fffJuDWCpWTRWIqVwP25gmDJyVQRpXFJ0EZJhXm2GNVPzU4Pykz IlpViduqWeGUOiXAXRTE8UBTaufdEjbXVlcReaOL37jLkiSG1BPx6PTpOgDF8szl1ApBXwUf8ELJWnYi 7OWTBgIASfQEPjOZJ6VHXeCyUfBOfyDERiYQArDVM1 XQPqASUsTC8LAiGdRALoRVa9CoYxNYCiUZXltr3OQMVxSAThYLI3HYSoTMYuHBQxMHmpFWXeAWWvPSG3 QXKjPRNlMM0OBhQwRTZfYQMcPkIaDMAdXTKgvz1FMXYpXUPxRjQzOLZqXXUiPGLwYZmlNLVqBJHoSCwn KZWrZQNgIK9VBaWrBCGyMCYkAuimMNSnDINafi2JGO EaHGDmKmN2GZIfCFQnPQZrXAomMZVzIKF9HZA4OTDeXFUdHA7QMpVaJFHuPXK6IOsaYCNgWNNzmq3VJO EyUWMlNHcwLeRmSJMlQKSxXRhvJBLfOQM0GKC6AGYnXAYvUJ8QRtOmUPIhMRVkVcKiCHFzJTZjkn6QCL LtCUGgHmF6StUxLYJnLAWsRWqwGBGtKZT1HaR6QTRc QJGoJT5BGjRvYEFgTTj3BFWdITQkJFFtnq0HKFXaIWZiCsTdMBZjPXBqZVFqCGvsPKXqPAC3VFV5ICGj MQEoWL2KPqYhDFNjSQp3ASyaPUDePTRfzv9QZFRrGJLhNOT3RALzUVKeWVBjZAvaTTCmVRA8BsFsABXx TSTeBE0QJnXlBAqkRJGZQzk9PEgwH0s6WHRpTz7NZ8 Fri0MuKmNtSJRCLVorOP3xadFcMQNvSo6TE4rHSjjbOPXlNFKgAMZ3XBG4PPjfCyKfEmIyUXnoCCKuQm F1Bb8kVHG0UhFiRsN8SrlxUjr3XFObHZF0OJP1LPC8NQA1RSumRnFlWD2HLd8QRnR7ZGT2gIDiQq0BIA b6Rl1DBYJZE1MSBw== ID Date Data Source [id number] 07/22/2019 07:54:10 AM EDT [facility] Name Value Range Interpretation Code Description Data Shelbi rce(s) Supporting Document(s) Progress Note [facility] EYTNKu6lNrESKvKt32/ALNgiIIKcd2WcNEcxYFq1OTxkQHYwL7MmBGJ7yX0cHEX8HJmGDdOgMaQjGRY2 lbm LjElpKYdEgQKOcAtqVYoYnZUthLmesiVAtYG9GoQN6DNEqO43oHAHxVZKlV1BkRABsSNP+Fu1SRJNevS WsBC3YCzeS9FtQk2x8OM3ilW3xvNDLyFURrFke3OlU7IMCm0zRrPC5vLUymOFnGJiykp80NDghTHfF5Y J3AhTA3eJH+JMI2v6VXlW+/W1QHiIZwYyhqcXhiFeL 33+Hqqcjk2JejSmZYLWUQ9NQgQbc/jlVdjg2whaCzzKHJgQkiNoztTASq+zK0Eln4xSuaGI0ooCfCSgJ jgAzXVY6M43fygQzTKhf8ueMwCgRsuLb87sVTP6OApjJSB0jyOz5D2FOgbfzTXNiup5PCBgJiEwMukgS lfr5TNylW6ER7f71cFfJuueADRbQ9JS4k3wXBohSJz 4fEltXuYsXJq3VYPhV65b80GJO2qwlq7HUNvaOO3tGS81zN7pOifcjOSKggWinEqoCitIY4ovmj7/ouL ZxbaIbJ/+ML6oTxoVpN4d1UlFUXovzzwl3lDi0boKtUHwlOvQ0xSsSDB7+svP7pn48QvW4Dip/nebJKi P6qXvMFwueisPdomuIcQqrVT9bf6/51Rzl0v/8OIbh T7IynzWdFSef+Os5aa31LGtDtNVDT4k3yJX1oBFv7Z2sHvNLTi48Sian0rF3cZ5e3uEj1PNq0AJm3D6m 5sksyfNk+xkXVU9aknERTk1P/CbzPn8qKjXIULSZpmLPVliwMBLJOpHSKK70WK2mR6fZ1hlCyNAte2In x0sBBrncxp0gF9F4mqbboJV5xrwn3vQMTkcUobkrrp [file] q1MTu9epzyUmx2Cf3SUd/2A2rr7/HqBoI7sXvkLoxsMrEZ+Jaswinder/z0/cOlJnKRufBU4dTIwo9FNDbQPbEM W0nSnCbJw/KGWqQD3VahP2moMQEAUODSgD4HpLtrOe TTCqNBIK+8w00XjLwbynNfF7npbLlfVOMYm2TjYptBBBzW0W6uZ60nhJGrnBmoEK3r2DOjmLECR4pJDA eVUjWWMNJKMh2dZqZShsKyBOyH/7Y+yIVLLbCVfwI71D8losJSMnyhJ4IJUFJPvq04VrnE1+ZCgwxeV+ 8mYk2tY7dLmRvxNY/3ca8UZHi7yyGBaT/yjsJ2fVRM UNUw1t56KLZLM3YhONFcysJv0K7UJQgD3cdsKV5NX7wp/4TC8C+qbrY7vl4RW7wHMusKklXP7wxQwv1c a4kATct5HvlgDXpxxxDqMPkG3t55r4Zd8vXN/cEWsZRAX+gdg2h8DTTFABOExPRPs1WN8g9WgvtvSwue wgLtUdGqYnARvbZ29TwjZMJhBBaiZt+FmkrQjAWWWQ XoxRAh1+GVwfTBtf3dG6b+RAp+AXcbKhY6tIA8OAZgQYB4X4A3bM1Ps45bThx39bjc6sLBvY/8pUSyU2 r38YTGXoEBxb2CIRUT0Q9VfQj/PgS7ITm1EteUZTzegpsq/hfXmfpfWpcLc+FOxDRniU/LGoJBeuQ38L hmK0PHld1pSBEVeMG34/T6AusEUqygpcrk2IgXjtNV Km1AZJ5uCKDXp8DnQBJgD2AFjRvlgM7PPIveWI3Xk6l0zfgJE8fBda64W+yMb1gnxnJ5/izSmUDEcZ5/ m2gNaZr4q4nk+uiXpOWhw65QVzuHwJ29XmmHMZKXknJFEyeAOuS7omkxYQ8YAOJWT8tav0noeS2MIr14 Andrés+/qvudt0OQj1di/Qo4b0v6OpoEtOiVcgCLGzzu3 [file] Cristiano/zL1sOpPUYam1uL99bitFT9vF+4wFgy91MdTMUUTTgU+TD6gMGvT1e5QRTeo4gn5cEOu0Fn60imvS 6ovtWme/KcJmKc0pImTYOjICFOMgm5P0LXDRx/xquA OYmKJI231TdEUqbdtpVxEbMZsNpPNL3ngw9/mj4DGfo769GbtaeR4EELOU+fkxnDbIE0QSRxEuRhN72p y/fW+xuIXPKu+XOdGojaASax1dDMDR+yYWqvMAucC1PQMYd3a9eLriFveu5xZEMYVB+VTRosi6EwNskH OFlEy6yI5sZDikRuF0YDQP8/XXHGppc8oOQfwDF0Gn vvX9qHfcZMx9fjJqrlBRvjDYh5UrlhdP0AKrUDKbItZhCgarsGC0L9/W2USBdWagxFNMM+aVAUIxCQqp cS1SmrEWg1z02JCv2/R3dtTdvQr92Rhx7J1dZ9GGBwOfB8LqI9ZOuXpSCy/TkS5SzmNbSYemWKpQp/Nx TN4qXHQJHahnaL7OV0/YFRoE0Ug6C2mL7sol4HAycI Zzqen3Ab7G8/LbGlY7wo6fXZXZiXjvTbzEZl32tTjbBMeXQYM2Br4n6gQVMKoxlhH25Qh9jgXJbDjuCj 3XJuM5D/KoFtH8aXrTqxei46VVKUnmF3D0nAfYl5HLGBp86B1blnKnYO88aGJy+UqV/uNYYk0tQZ01+B QUDC3JuxNKcMI+gGQXcQYNuL+/D2lJ5tmdt0NrYoON RXRVzhW121TsNQYLzhsBUPGyWdr8F21q2rZzjsL59jbcQFDi97VvRq+NvJUg5LnxVv5dTdY957MNHZbm Inspector Packer+JafNwDLwapYZeRxVy/kPxp9LlgpGCVCxKSGKP3r23sSSM3gTA2WL02ja2uF8aaPlzh4XxIzmUuqh BIgjkwyxotAUvzYbCTkELQY89yfEgY+DF3sNSzXDZL 3RqE7Zb2YxgIzJoJi2wkFhFrjkt4ruHWdqHyK28M74LRMWgYLxr1rla1NS9y+UmaldOMi2PwXL77VNUr q9voTh5EN1EFwj5ud55tPEhaGYD1mTWqqbEvvnLNpWBncNvHE4ZUbEer7pMm4VtkLQrPccsfbFAziSbD vLd0ltZCOU+ro1TNPecEXEHjo59IFA8J4hPVtkOPxI u1Pp8yRevTfjRNSuwCKGNiSIqp0iO7zznGZD943h3FQpLPpE5WezUStLXw/7y7OffXJVHu88O7ZAN3Ye DJvINIOoy8XDszDP5tpMS7lLUKIiifEhCjoj/HRuavajm9y+ZewwvjE5zLKRvvNOfhLeaeMmqWQimz4n PjTaSZoxSnnUZzXyzcAnUHyeksVfBQz4JmwJtWR4Qi c1Ejf8reJjdq3iZCwXH/OtqFBFS42HK8nO5YNjD3tfRekOPFv081BTqFvGHzd/p+7N1VD0GNIxGuaTJN etNnLFfiaI9wZ4Sh1OB8PFQaqX0GbMrihaGpCt0yXNSASHOkI11VD5N3WF7N4IIr6DohEr2/mRQaEZnl Kd8YZzMi5IxoM9huQPM+sXyUNT4ySNiMUujTXSiQBs mpvH3RgE5y6lRXJbwfaNgfhlwawtxTPQZhlae2rl6gt7r+KFCOhnUMUBWfSYXVcgCSXV7lxVpjezVUzY 18BUqvSfplIy+VRLHnvzU25PXkGCGgpKjUdffvZqa9BBTSjDsCOB7GaNb4zuatQiBmUqCzwGGtNtVpON qsLPQrBv5BVpLUO3N0f7IiMdc6ZzhMaD4TLE/ExQ2O zkeiiyIOXbMNQCCOmkp5WuJ6Ic0pDSgA7dd2wXFSHsH/GfiHgpMrvA5tqATFu6TyJw0t0RgkudsiR7Mb 2lDWrDgz1qJHDClz/Q3IqeoqHe+8cMzHCU8dBn9m7wwi1+gFmZ4fG+/kV/u91GwS9vIBdGKvZAKp4T [file] sAzJy/DQL1kc4kZBxkGoxFp9yk5sU+Jose D/5NDLEhDQ1EiKAyGpFSnm+xqLQe1KdbfTWKw1qJy5ZdOycn [file] L9Krc3LYZ8OWSpUMv+CG3nJPl+Uv4Ql4RvovG9czAiKNxtSaI2PRkRFlPqRI2VSHg= ID Date Data Source [id number] 07/22/2019 07:38:59 AM EDT [facility] CT MAXILLOFACIAL WITHOUT CONTRAST [id number] INAL RESULTInterpreted by:Shawn Gonzalez, Fer Stroud MDINDICATION: [...] Date Data Source [id number] 07/22/2019 09:00:12 AM [facility] Cmnt XXX-Imp : NoneMicroorganism XXX Cult : 2019 nCoV Real-Time RT-PCR: NOT DETECTEDTest performed using the [employer] HR Xpert Xpress SARS-CoV-2 assay. This test is only for use under the Food and Drug Administration's Emergency Use Authorization. Additional information is available on the following FDA websites for health care providers and patients. https://www.fda.gov/media/602862/download , https://www.fda.gov/media/247874/download Name Value Range Interpretation Code Description Data Shelbi rce(s) Supporting Document(s) ID Date Data Source [id number] 07/22/2019 07:14:00 AM [facility] Cmnt XXX-Imp : NoneMicroorganism XXX Cult : 2019 nCoV Real-Time RT-PCR: NOT DETECTEDTest performed using the [employer] HR Xpert Xpress SARS-CoV-2 assay. This test is only for use under the Food and Drug Administration's Emergency Use Authorization. Additional information is available on the following FDA websites for health care providers and patients. https://www.fda.gov/media/491599/download , https://www.fda.gov/media/356491/download Name Value Range Interpretation Code Description Data Shelbi rce(s) Supporting Document(s) Microorganism identified in Unspecified specimen by [facility] This lab was ordered by [facility] and reported by [facility]. ID Date Data Source T807/22/2019 06:54:16 AM [facility] Value Range Interpretation Code Description Data Shelbi rce(s) Supporting Document(s) Prothrombin time (PT) 13.4 s 12.5-14.9 [facility] INR in Platelet poor plasma by Coagulation assay 1.01 [facility] Routine intensity oral anticoagulation I NR is typically 2.0-3.0. Target INR must be clinically individualized. ID Date Data Source T807/22/2019 07:24:46 AM [facility] Value Range Interpretation Code Description Data Shelbi rce(s) Supporting Document(s) Alpha 1 antitrypsin [Mass/volume] in Serum or Plasma 116 mg/dl 90-20 0 [facility] ID Date Data Source T807/22/2019 07:24:46 AM [facility] Value Range Interpretation Code Description Data Shelbi rce(s) Supporting Document(s) Acetaminophen [Mass/volume] in Serum or Plasma 10.0-30.0 L [facility] ID Date Data Source T807/22/2019 07:24:46 AM [facility] Value Range Interpretation Code Description Data Shelbi rce(s) Supporting Document(s) Ceruloplasmin [Mass/volume] in Serum or Plasma 21 mg/dl 16-45 [facility] ID Date Data Source T807/22/2019 07:24:46 AM [facility] Value Range Interpretation Code Description Data Shelbi rce(s) Supporting Document(s) Ferritin [Mass/volume] in Serum or Plasma 783 ng/ml 13-150 H [facility] ID Date Data Source T807/22/2019 07:24:46 AM [facility] Value Range Interpretation Code Description Data Shelbi rce(s) Supporting Document(s) Magnesium [Mass/volume] in Serum or Plasma 2.2 mg/dL 1.6-2.6 [facility] ID Date Data Source T807/22/2019 07:24:46 AM [facility] Value Range Interpretation Code Description Data Shelbi rce(s) Supporting Document(s) Phosphate [Mass/volume] in Serum or Plasma 3.7 mg/dL 2.5-4.5 [facility] ID Date Data Source 07/22/2019 08:05:06 AM [facility] Value Range Interpretation Code Description Data Shelbi rce(s) Supporting Document(s) Choriogonadotropin.beta subunit [Moles/volume] in Serum or Plasma <5 [facility] ID Date Data Source 07/22/2019 10:52:30 AM [facility] Value Range Interpretation Code Description Data Shelbi rce(s) Supporting Document(s) Iron [Mass/volume] in Serum or Plasma 94 ug/dl 37-145 [facility] Transferrin [Mass/volume] in Serum or Plasma 209 mg/dL 200-360 [facility] Iron binding capacity [Mass/volume] in Serum or Plasma 290 ug/dl 228 -428 [facility] Iron saturation [Mass Fraction] in Serum or Plasma 34.0 % 20-55 [facility] ID Date Data Source 07/23/2019 02:42:28 PM [facility] Value Range Interpretation Code Description Data Shelbi rce(s) Supporting Document(s) Nuclear Ab Pattern Homogenous [Titer] in Serum <80 [facility] Nuclear Ab pattern.speckled [Titer] in Serum <80 [facility] Nuclear Ab pattern.rim [Titer] in Serum <80 [facility] Nuclear Ab pattern.nucleolar [Titer] in Serum <80 [facility] ID Date Data Source T807/24/2019 10:05:28 PM [facility] Value Range Interpretation Code Description Data Shelbi rce(s) Supporting Document(s) Liver kidney microsomal 1 Ab [Units/volume] in Serum 0.0-2 0.0 [facility] (NOTE) Neg ative 0.0 - 20.0 Equivocal 20.1 - 24.9 Positive >24.9LKM type 1 antibodies are detected in patients withautoimmune hepatitis type 2 and in up to 8% ofpatients with chronic HCV infection.Performed At: [address] [id number] Godwin MD Ph:[phone] ID Date Data Source [id number] 07/28/2019 10:05:24 PM [facility] Name Value Range Interpretation Code Description Data Shelbi rce(s) Supporting Document(s) Abbey Michelle virus DNA [#/volume] (viral load) in Serum or Plasma by Probe and target amplification method Negative [facility] (NOTE)No EBV DNA detected.The quantitati ve range of this assay is 100 to 1 million copies/mL.This test was developed and its performance characteristicsdetermined by [employer]. It has not been cleared or approved by theFood and Drug Administration.Performed At: [facility], [place] [id number] Dash MD Ph:[phone] Abbey Michelle virus DNA [Log #/volume] (v iral load) in Unspecified specimen by Probe and target amplification method [facility] (NOTE)Unable to calculate result since n on-numeric result obtained forcomponent test. ID Date Data Source [id number] 07/31/2019 08:06:14 AM [facility] Name Value Range Interpretation Code Description Data Shelbi rce(s) Supporting Document(s) Cytomegalovirus DNA [Units/volume] (migdalia l load) in Plasma by Probe and target amplification method [facility] (NOTE)Quantity was not sufficient for an alysis.The quantitative range of this assay is 200 to 1 million IU/mL.This test was developed and its performance characteristicsdetermined by [employer]. It has not been cleared or approved by theFood and Drug Administration. The FDA has determined that suchclearance or approval is not necessary. Cytomegalovirus DNA [log units/volume] ( viral load) in Plasma by Probe and target amplification method [facility] (NOTE)Performed At: [facility] [address], [place] [id number] Sanjai MD Ph:[phone] ID Date Data Source [id number] 07/22/2019 10:54:41 AM [facility] Name Value Range Interpretation Code Description Data Shelbi rce(s) Supporting Document(s) Hepatitis A virus IgM Ab [Presence] in Serum or Plasma by Im munoassay Non Reactive [facility] Hepatitis B virus core IgM Ab [Presence] in Serum or Plasma by Immunoassay Non Reactive [facility] IgM antibodies to HBc were not detected, does not exclude the possibility of exposure to HBV. Hepatitis C virus Ab [Presence] in Serum or Plasma by Immuno assay Non Reactive [facility] ConfirmedNo serological evidence of acti ve infection. If recent exposure is suspected, test for HCV RNA. Hepatitis B virus surface Ag [Presence] in Serum or Plasma b y Immunoassay Non Reactive [facility] ConfirmedNo active or previous infection . Susceptible to infection. ID Date Data Source [id number] 07/22/2019 06:00:36 AM [facility] Name Value Range Interpretation Code Description Data Shelbi rce(s) Supporting Document(s) Progress Note [facility] DKYLWx8fLiSRZyBq10/XGWtxFNJgu1CpOImhCEy5SPqgCARtD8NqUJO9aC2jEJK9EWuVBlEcPwHhUYF7 lbm [file] dGE+DQogICAgICAgICAgICAgICAgICAgICAgICAgIC AgICAgICAgICAgICAgICAgICAgICAgICAgICAgICAgICAgICAgICAgICAgICAgICAgICAgICAgICAgIC AgICAgICAgICAgICAgDQogICAgICAgICAgICAgICAgICAgICAgICAgICAgICAgICAgICAgICAgICAgIC AgICAgICAgICAgICAgICAgICAgICAgICAgICAgICAg ICAgICAgICAgICAgICAgICAgICAgICAgDQogICAgICAgICAgICAgICAgICAgICAgICAgICAgICAgICAg ICAgICAgICAgICAgICAgICAgICAgICAgICAgICAgICAgICAgICAgICAgICAgICAgICAgICAgICAgICAg ICAgICAgDQogICAgICAgICAgICAgICAgICAgICAgIC AgICAgICAgICAgICAgICAgICAgICAgICAgICAgICAgICAgICAgICAgICAgICAgICAgICAgICAgICAgIC AgICAgICAgICAgICAgICAgDQogICAgICAgICAgICAgICAgICAgICAgICAgICAgICAgICAgICAgICAgIC AgICAgICAgICAgICAgICAgICAgICAgICAgICAgICAg ICAgICAgICAgICAgICAgICAgICAgICAgICAgDQogICAgICAgICAgICAgICAgICAgICAgICAgICAgICAg ICAgICAgICAgICAgICAgICAgICAgICAgICAgICAgICAgICAgICAgICAgICAgICAgICAgICAgICAgICAg ICAgICAgICAgDQogICAgICAgICAgICAgICAgICAgIC AgICAgICAgICAgICAgICAgICAgICAgICAgICAgICAgICAgICAgICAgICAgICAgICAgICAgICAgICAgIC AgICAgICAgICAgICAgICAgICAgDQogICAgICAgICAgICAgICAgICAgICAgICAgICAgICAgICAgICAgIC AgICAgICAgICAgICAgICAgICAgICAgICAgICAgICAg ICAgICAgICAgICAgICAgICAgICAgICAgICAgICAgDQogICAgICAgICAgICAgICAgICAgICAgICAgICAg ICAgICAgICAgICAgICAgICAgICAgICAgICAgICAgICAgICAgICAgICAgICAgICAgICAgICAgICAgICAg ICAgICAgICAgICAgDQogICAgICAgICAgICAgICAgIC AgICAgICAgICAgICAgICAgICAgICAgICAgICAgICAgICAgICAgICAgICAgICAgICAgICAgICAgICAgIC LnWWRhOWEeLMYaWTShPIAnYUCcHOVeFRy3Q0uiSSAfLYNzPI0aNPl1As2+VMeHYvYnGJV8pyWfpQ2KDM 3qp9ChRNdvWYLzq1HtXXx2CY8ZVBMhKHutVM9WPDkd gt2OGKZaFLZssPCPu5grCeQkIEK3ZCBmYfjsCV3MABSpH7yeguPgKXMjAOCNLL5AKpIuH3OceT46JOSR Cj4+JMbszmXyNneZVdQ6KIBnn2BjVUg9DN1MKTZhQrhxs6UvNYklRVPNEAhxTB3HJDU4WUX4RSZeXb1H PMOjL108yxUsLZ2TPo7BSgVxIV3gxa8KDIhpCLUpBb oQYjy7OGyrCT8WmEAuGNbChi1whnQqwxRZb4HqhaNksXOLhZH4kR8sCUOFwLyaYCPcRTZuED0iKH5yOX SeAGI4GnN5OPUBAA8HQXZmYIDqlOXbMIPhPEEAPO3XKZkbVOV1JTJfwoTxwJGkSZvxLF3QPPDbwqOgCD cgMCBSDQo+Lu9WIN2wx0JcYAnfDOEhCB4uua0WYQjU XdKbH6X6xOOzG8U0CUmnIf1JYPItUOQjKAUvTIUVZBieEC3RTK5ptsS7GX2NoFGkTBXmVOJjfFPiNBe2 M26lfIXjOEhvYX0HMBK+Tiffany+Gi2FLMOaYIQeQSFeVwDzYKLTKpGqR6NeQ1HRh7KtC2HeRD44yBvmxnGk GGksWN9QNS7qEBKyQKMWIN5HwGLjiO8zjjZgYmYwQV HVFoTnW09jsLLgWJAlDCF5DOTdVa3DZSYmH6EkpwFmfLcuuxTpWPZwNBNMWP8WTWdyhdYcvDWvyBwnED 22vOxrDB0AKk5TKgVnSX2mvm9OiZBfQp7TFICnAB0PMOUlUYZmZZJdMBK3VFCuVwMiMPubRNIcYSYaTG V8LZJkHHZoHD8GCvLsCQWfAPUlTDHvJVDgKQFbjd4P HTYoROTdTwr0OqVrXFJhJBHePMwdAEUiWKHgRDE9BVXnJOSmDJ1IHuPpRNAqYCV6QpWzEKJfOLNuck0Z SUZtIQJwMhX1HMYzMMHxYGNeKAnkCJTvWVTsYVW7EMSuHWNpTY5KFgNyCCPwLGWsFnAoBPShJVVgpt2E VJVdLKWfErLnYZCsXLGgEYVfOUdgEFNsNGI0QlHlKN VnQMSfPK2WThByZGXjKKI5PhUoFGIcMZHqqg8BIYOlOJAfCRd5XEWcXKQoSTMbEXcxCCHpJBQ0ThAtQF LcOLVbUF1UTwYwPGDkJPE2ISnbWTViDGLrfz0JAVAtOMAcCzE7LUDhFTEdADYaWCkvZSPeMUS0DTFoRB AkCVUvHP6OZlIkPDXqAZd2PUXtHSIeDHXmbi6BWUZr YHYpITRvWbJfQGLaMXHuRXtdLCVaGYW5YHA1IKEaFBTqXJ6GXlOtXOkuKXSKKvj9ZOseZ3d2TSQeID3A W6Ggu0OyKGivOJRLHMgmDI2fcnAsDOKjEz8DB7fYQynsBAiwGXH1DUOiMvsgQPN3JYX9OIC0EbtyY1Me PGM8Qg6jPGRaVtWyKmehDMVrCwQ9XsqqLglwFTu0QO IoWAE4ULlyTsFjUF9JMr7FBhK6FUQ7xTDtQm1ANIPmYi2GICPBW4YAJp== ID Date Data Source [id number] 07/22/2019 05:54:10 AM EDT [facility] Name Value Range Interpretation Code Description Data Shelbi rce(s) Supporting Document(s) ED Provider Note [facility] XOHLRg9hYiEMUyMh19/FFCsrOJMpj3RpAWyjICv7GCuvBQXiX6EfPYY8jL5cNNL3EChZUkGhWbLqRSR5 lbm [file] uvY1XE5NePTdFNNpOLCklRHtKYl3Q68jbCGlPVqmXV4CEFX+Tiffany+Sv2MZMXhOPRgKPGxMuVpFCUBWgNn S8EqR6VOw1HrT2UkVA18eMywozUhWEuzGU8WAD2bPI BfYLFNKE7MzPQxsU4tfxQhZqThGLPVScYbT18ghKJxXAJsDQS6EHNeOj9ABZFjI4QunnBakVasvzNqIZ VjIDXCME6RQLwfsvPnwQWssMvmXS05yZokKT5YWe6AOxVkAR7kbd8NhJHzIg0SWKL8Fl5YSOJdZAYoYV HsIEH6RYAiGuLyKQepRAJlYVYjOED0IWDcSOPqDW6S TiCuHBGmVre5YhAkQGTeIDTkbo8ZEUHdMXG7IZTzXtOpXBMaVMFlSJeyOSMsDTEiTKH0FNSkOFByHE3Z ImMpZZXpRKErVZHzRHOyHWBwqo0GLVRkAKRuVmL9ZCFhKTRqRFAzWTkeVPBySFF2PKJ5AFGxGPTyIB0Q AzQnKDFfCLD6XyHvARMgCPLerh7RJMLkBZVfXThxJi KdHUNxPGVzPGxgRBPfHLG8OBI2TUShWOJdAB2AHrQyJDGjOGY9HOKrJFHbMLTmkj5PFTEnPXHrLge0WK AvBUIzIXOuXCxaQRSiTQE7WwG1TSXuOSDfLU9INwXvQDTjKOA0RNIpCTPfXBSgln7STUOgUPZnGZReHM OkOLVlZVMfZLojOSLxZHI4QHV3PIIoYXDdEG2LFeTi AKGoTyB3YPnvIVVvZJLglc6UUMVdSBQoKFrnFrGoOYEoVTNdRUfqOWUeEOTfUzYaQXKmOEBdMR9SNiLe QJUwKxE6UpMlWBYfFLOqmb2EWDDqFAKzVbX0GtPiCEToACZgAHqwDMAeTYE7AISmMPOxURDiVF5YEmOi IAEvWqEbHWIlLRGyMHAhvi6PHOJkEJFvATJ8EdMgOC RfGPCdUCtpAGEwLIF8DGDcDQUoKQRgOQ5OLbTzPKBpUvX3FHwcFXZyAPSlbx1RASCiNRAhEHvjRwZlKD ZeLVIiSUwrXMZpBEQ2CvC8DVJiGDZeML2QHeZeJZYbWnv3AtDuPIZzVYJkxj5WHRKlLVVdGye3PSNgAB GuEDSnGVsvEFZaDSP2WUjeXULtARHdGD1BObDdGFUv FrbxZxfuGZFxQEEsfp5BWIKxNCOpHCD7GwYyFDBbQTOcOSgkGNZgWIY0NxOmPMCbXXChMG8XVcDlYRHq Jxt5YzkwULKwHGDpmc7QHBVmRRLqKFp8IvYrKIXcJHAkUQwqJBXkGFGyZoUeGQZoKFCeGW9ZHfImUTTx JOJ2TnQuUNRlWHAegj7ISTTdPKT5ARF5JFRfECRaYH LuYBzfXBDgFFJbEmprOXKxACUkKK9ECrAmUIDtHQC4TBptNNOeCCZvkx8MAESzNZR9BpKiKCZpMLExHZ NvENd5wtJjpBFwESx5ED5EG0NrhgByXYNDIx1Kp497JACwBRCgJq9TH3nzKv0jTIDtMUBMOt5RRQf3Qm tsYwfeROPaFxT1WerkUDOdKpCrFFF2RcnbMmUqQhU+ WDgfONGaS1DmPFYuRrtaKRGyQrXfNlXfBumzY0LbEWPxYM1yRKDWFq2+DQpzdGFydHhyZWYNCjQyMzY5 NUkoKTZAZa4Y ID Date Data Source [id number] 07/22/2019 01:29:18 AM EDT [facility] Name Value Range Interpretation Code Description Data Shelbi e(s) Supporting Document(s) Leukocytes [#/volume] in Blood by Automated count 10.2 10*3/uL 4-10 H [facility] Erythrocytes [#/volume] in Blood by Automated count 3.97 10*6/uL 4.1- 5.3 L [facility] Hemoglobin [Mass/volume] in Blood 12.5 g/dL 11.5-15.5 [facility] Hematocrit [Volume Fraction] of Blood by Automated count 37.4 % 3 6-45 [facility] Erythrocyte mean corpuscular volume [Entitic volume] by Auto mated count 94.4 fL 80-96 [facility] Erythrocyte mean corpuscular hemoglobin [Entitic mass] by Automated count 31.6 pg 27-33 [facility] Erythrocyte mean corpuscular hemoglobin concentration [Mass/volume] by Automated count 33.5 g/dL 32.0-36.0 [facility] al Erythrocyte distribution width [Ratio] by Automated count 13.6 % 11.5-14.5 [facility] Platelets [#/volume] in Blood by Automated count 293 10*3/uL 150-400 [facility] Differential cell count method - Blood [facility] Neutrophils/100 leukocytes in Blood by Automated count 67 % [facility] Lymphocytes/100 leukocytes in Blood by Automated count 22 % [facility] Monocytes/100 leukocytes in Blood by Automated count 8 % [facility] Eosinophils/100 leukocytes in Blood by Automated count 2 % [facility] Basophils/100 leukocytes in Blood by Automated count 1 % [facility] Neutrophils [#/volume] in Blood by Automated count 6.90 10*3/uL 1.8-7 .0 [facility] Lymphocytes [#/volume] in Blood by Automated count 2.22 10*3/uL 1.2-4 .0 [facility] Monocytes [#/volume] in Blood by Automated count 0.82 10*3/uL 0-0.8 H [facility] Eosinophils [#/volume] in Blood by Automated count 0.19 10*3/uL 0-0.5 [facility] Basophils [#/volume] in Blood by Automated count 0.06 10*3/uL 0-0.2 [facility] Nucleated erythrocytes/100 leukocytes [Ratio] in Blood by Automated count 0 /100{WBCs} 0-0 [facility] ID Date Data Source [id number] 07/22/2019 01:52:28 AM EDT [facility] Name Value Range Interpretation Code Description Data Shelbi rce(s) Supporting Document(s) Albumin [Mass/volume] in Serum or Plasma by Bromocresol green (BCG) dye binding method 3.8 g/dL 3.5-5.2 [facility] Bilirubin.total [Mass/volume] in Serum or Plasma 0.5 mg/dL <1.2 [facility] Bilirubin.direct [Mass/volume] in Serum or Plasma 0.3 mg/dL <0.3 H [facility] Alkaline phosphatase [Enzymatic activity/volume] in Serum or Plasma 108 U/L 35-104 H [facility] Aspartate aminotransferase [Enzymatic activity/volume] in Serum or Plasma 555 U/L <32 H [facility] Alanine aminotransferase [Enzymatic activity/volume] in Seru m or Plasma 285 U/L <33 H [facility] Protein [Mass/volume] in Serum or Plasma 6.4 g/dL 6.4-8.3 [facility] ID Date Data Source [id number] 07/22/2019 01:52:28 AM EDT [facility] Name Value Range Interpretation Code Description Data Shelbi rce(s) Supporting Document(s) Bicarbonate [Moles/volume] in Serum 21 mmol/L 22-29 L [facility] Chloride [Moles/volume] in Serum or Plasma 106 mmol/L 98-107 [facility] Creatinine [Mass/volume] in Serum or Plasma 0.73 mg/dL 0.50-0.90 [facility] Glucose [Mass/volume] in Serum or Plasma 86 mg/dL 70-140 [facility] Potassium [Moles/volume] in Serum or Plasma 3.6 mmol/L 3.4-5.1 [facility] Sodium [Moles/volume] in Serum or Plasma 139 mmol/L 136-145 [facility] Urea nitrogen [Mass/volume] in Serum or Plasma 11 mg/dL 6-20 [facility] Anion gap 3 in Serum or Plasma 12 mmol/L 8-15 [facility] Osmolality of Serum or Plasma by calculation 286 mosm/kg 275-300 [facility] Creatinine/Urea nitrogen [Mass Ratio] in Serum or Plasma 15 [facility] Calcium [Mass/volume] in Serum or Plasma 8.5 mg/dL 8.6-10.0 L [facility] Glomerular filtration rate/1.73 sq M pre dicted among non-blacks [Volume Rate/Area] in Serum or Plasma by Creatinine-based formula (MDRD) >6 0 [facility] Glomerular filtration rate/1.73 sq M pre dicted among blacks [Volume Rate/Area] in Serum or Plasma by Creatinine-based formula (MDRD) >60 [facility] ID Date Data Source [id number] 07/21/2019 11:39:51 PM EDT [facility] XR SKULL LIMITED [id number] RESULTInterp reted by:Elicia Campbell MDINDICATION: Shunt seriesTECHNIQUE: [...] rce(s) Supporting Document(s) ID Date Data Source [id number] 07/21/2019 11:39:51 PM EDT [facility] XR ABDOMEN AP SUPINE AND LATERAL [...] rce(s) Supporting Document(s) ID Date Data Source [id number] 07/21/2019 11:39:51 PM EDT [facility] XR CHEST FRONTAL AND LATERAL [id number] RESULTInterpreted by:Elicia Campbell MDINDICATION: Shunt seriesTECHNIQUE: Multiple [...] Name Value Range Interpretation Code Description Data [facility] ID Date Data Source [id number] 07/21/2019 10:11:00 PM EDT [facility] Patient: NIMA DIAZ Observation Re port - [facility].VisitID: [id number] [place] [address] [phone], FRegistration Date/Time: 07/21/2019 12:33 Weight:104.3 kg (S). Height/Length:62 inches (S). 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 Difficile Colitis [Resolved]. Additional Surgeries:Abdominal surgery to release gas S/P shunt repair.Appendectomy.Cholecystectomy.LP shunt.Lypoma removed from back .Shunts.Tonsillectomy.GLASS FURNACE TENDER Shunt. Medications:Tylenol Oral 650 mg, daily as [...] e(s) Supporting Document(s) ID Date Data Source [id number] 07/21/2019 02:55:00 PM [facility]T [facility] [...] rce(s) Supporting Document(s) ID Date Data Source [id number] 07/27/2019 02:07:00 PM EDT [facility] Name Value Range Interpretation Code Description Data Shelbi rce(s) Supporting Document(s) BLOOD CULTURE, ROUTINE Final report . [facility] 07/27/19 1407: BLOOD CULT, RT previousl y reported as: Preliminary report BC RESULT1 Comment . [facility] No aerobic or anaerobic growth in five d ays.Performed at: - [facility] [address] [id number] Director: Raquel Ledbetter MD, Phone: [phone]/24/20 1407: BC RESULT1 previously reported as: Comment No growth in 36 - 48 hours. Performed at: [facility] [address] [id number] Stockroom Attendant: Raquel Ledbetter MD, Phone: [phone] 07/24/19 1205: BC RESULT1 previously reported as: Comment No growth after 16-24 hours. Performed at: [facility] [address] [id number] Stockroom Attendant: Raquel Ledbetter MD, Phone: [phone] @ Edited by: @ Reason: [] ID Date Data Source [id number] 07/27/2019 02:05:00 PM EDT [facility] Name Value Range Interpretation Code Description Data Shelbi rce(s) Supporting Document(s) Blood Culture, Routine Final report [facility] ID Date Data Source [id number] 07/27/2019 02:05:00 PM EDT [facility] Name Value Range Interpretation Code Description Data Shelbi rce(s) Supporting Document(s) Result 1 [facility] No aerobic or anaerobic growth in five d ays. ID Date Data Source [id number] 07/21/2019 02:19:00 PM EDT [facility] TSYSORDER [id number] Name Value Range Interpretation Code Description Data Shelbi rce(s) Supporting Document(s) C REACTIVE PROTEIN 8.7 mg/L 0.0-3.0 [facility] ID Date Data Source [id number] 07/21/2019 02:19:00 PM EDT [facility] TSYS[facility] [id number] Name Value Range Interpretation Code Description Data Shelbi rce(s) Supporting Document(s) MAGNESIUM 2.0 mg/dL 1.8-2.4 [facility] ID Date Data Source [id number] 07/21/2019 02:19:00 PM EDT [facility] TSYSORDER [id number] Name Value Range Interpretation Code Description Data Shelbi rce(s) Supporting Document(s) CREATINE PHOSPHOKINASE 105 U/L 26-192 [facility]ital ID Date Data Source [id number] 07/21/2019 02:19:00 PM EDT [facility] TSYSORDER [id number] Name Value Range Interpretation Code Description Data Shelbi rce(s) Supporting Document(s) GLUCOSE 96 mg/dL 74-106 [facility] BLOOD UREA NITROGEN 10 mg/dL 7-18 [facility] ital CREATININE 0.6 mg/dL 0.6-1.0 [facility] SODIUM 140 mmol/L 136-145 [facility] POTASSIUM 5.1 mmol/L 3.5-5.1 [facility] CHLORIDE 106 mmol/L 98-107 [facility] CO2 20 mmol/L 21-32 L [facility] CALCIUM 9.1 mg/dL 8.5-10.1 [facility] ANION GAP 14.0 mmol/L 5-12 H [facility] GLOMERULAR FILTRATION RATE >90 mL/min [facility] GFR IS CALCULATED IN mL/min/1.73m2 JESICA L FUNCTION: >90MILDLY DECREASED: 60-89MILDY TO MODERATELY DECREASED: 45-59 MODERATELY TO SEVERELY DECREASED: 30-44SEVERELY DECREASED: 15-29RENAL FAILURE: <15 AST 33 U/L 15-37 [facility] ALT 55 U/L 12-78 [facility] ALKALINE PHOSPHATASE 97 U/L 46-116 [facility] pital TOTAL BILIRUBIN 0.3 mg/dL 0.2-1.0 [facility] TOTAL PROTEIN 7.4 g/dl 6.4-8.2 [facility] ALBUMIN 4.1 gm/dL 3.4-5.0 [facility] ID Date Data Source [id number] 07/21/2019 02:18:00 PM EDT [facility] l TSYSORDER [id number] Name Value Range Interpretation Code Description Data Shelbi rce(s) Supporting Document(s) PARTIAL THROMBOPLASTIN TIME 23.1 SECONDS 21.4-30.2 [facility] ID Date Data Source [id number] 07/21/2019 02:18:00 PM EDT [facility] l TSYSORDER [id number] Name Value Range Interpretation Code Description Data Shelbi rce(s) Supporting Document(s) PROTHROMBIN TIME (PATIENT) 9.6 SECONDS 9.2-11.6 [facility] INR 0.92 0.87-1.06 [facility] ID Date Data Source [id number] 07/21/2019 02:17:00 PM EDT [facility] l TSYSORDER [id number] Name Value Range Interpretation Code Description Data Shelbi rce(s) Supporting Document(s) LACTIC ACID 1.5 mmol/L 0.4-2.0 [facility] ID Date Data Source [id number] 07/21/2019 02:56:00 PM EDT [facility] l TSYSORDER [id number] Name Value Range Interpretation Code Description Data Shelbi rce(s) Supporting Document(s) ERYTHROCYTE SEDIMENTATION RATE 20 mm/hr 0-20 [facility] [facility] ID Date Data Source [id number] 07/21/2019 02:25:00 PM EDT [facility] l TSYSORDER [id number] Name Value Range Interpretation Code Description Data Shelbi rce(s) Supporting Document(s) TSH 1.18 uIU/mL 0.36-3.74 [facility] ID Date Data Source [id number] 07/21/2019 01:55:00 PM EDT [facility] l TSYSORDER [id number] Name Value Range Interpretation Code Description Data Shelbi rce(s) Supporting Document(s) WHITE BLOOD COUNT 7.9 K/mm3 4.0-10.0 [facility] 4.36 M/mm3 4.00-5.50 [facility] HEMOGLOBIN 13.5 gm/dL 12.0-16.0 [facility] HEMATOCRIT 40.8 % 36.0-48.8 [facility] MEAN CELL VOLUME 93.6 fl 80-96 [facility] MEAN CORPUSCULAR HEMOGLOBIN 31.0 pg 27.0-31.0 [facility] MEAN CORPUSCULAR HGB CONC 33.1 g/dl 32.0-36.0 [facility] RED CELL DISTRIBUTION WIDTH 12.8 % 10.0-14.5 [facility] PLATELET COUNT 374 K/mm3 172-450 [facility] MEAN PLATELET VOLUME 9.2 fl 9.0-13.0 [facility] pital GRAN % 67.1 % 50-80.0 [facility] IG% 0.3 % 0.0-0.2 H [facility] LYMPH % 21.3 % 25.0-50.0 L [facility] MONO % 7.1 % 2.0-10.0 [facility] EOS % 3.4 % 0-5.0 [facility] BASO % 0.8 % 0.0-2.0 [facility] GRAN # 5.3 K/mm3 2.0-8.00 [facility] IG# 0.0 K/mm3 0.0-0.2 [facility] LYMPH # 1.7 K/mm3 1.0-5.0 [facility] MONO # 0.6 K/mm3 0.10-1.20 [facility] EOS # 0.3 K/mm3 0.0-0.5 [facility] BASO # 0.1 K/mm3 0.0-0.2 [facility] ID Date Data Source [id number] 07/27/2019 02:07:00 PM EDT [facility] Name Value Range Interpretation Code Description Data Shelbi rce(s) Supporting Document(s) BLOOD CULTURE, ROUTINE Final report . [facility] 07/27/19 1407: BLOOD CULT, RT previousl y reported as: Preliminary report BC RESULT1 Comment . [facility] No aerobic or anaerobic growth in five d ays.Performed at: [facility] [id number] Director: Raquel Ledbetter MD, Phone: [phone]/24/20 1407: BC RESULT1 previously reported as: Comment No growth in 36 - 48 hours. Performed at: [facility] [address] [id number] Stockroom Attendant: Raquel Ledbetter MD, Phone: [phone] 07/24/19 1205: BC RESULT1 previously reported as: Comment No growth after 16-24 hours. Performed at: [facility] [address] [id number] Stockroom Attendant: Raquel Ledbetter MD, Phone: [phone] @ Edited by: @ Reason: [] ID Date Data Source [id number] 07/27/2019 02:05:00 PM EDT [facility] Name Value Range Interpretation Code Description Data Shelbi rce(s) Supporting Document(s) Blood Culture, Routine Final report [facility] ID Date Data Source [id number] 07/27/2019 02:05:00 PM EDT [facility] Name Value Range Interpretation Code Description Data Shelbi rce(s) Supporting Document(s) Result 1 [facility] No aerobic or anaerobic growth in five d ays. ID Date Data Source [id number] 07/21/2019 02:00:00 PM EDT [facility] TSYSORDER [id number] Name Value Range Interpretation Code Description Data Shelbi rce(s) Supporting Document(s) URINE AMPHETAMINES NEGATIVE <1000 ng/mL [facility] pital THC,URINE NEGATIVE <50 ng/mL [facility] URINE BARBITURATES NEGATIVE <300 ng/mL [facility] PCP,URINE NEGATIVE <25 ng/mL [facility] COCAINE, URINE NEGATIVE <300 ng/mL [facility] URINE,OPIATES NEGATIVE <300 ng/mL [facility] URINE,TCA NEGATIVE <1000 ng/mL [facility] IF A NEGATIVE RESULT IS OBTAINED AND ING ESTION OF TRICYCLICANTIDEPRESSANTS IS SUSPECTED, A SERUM SAMPLE SHOULD BEOBTAINED AND TESTED USING AN APPROPRIATE METHOD. URINE BENZODIAZEPINES NEGATIVE <300 ng/mL [facility] ospital THESE TESTS ARE PERFORMED USING AN IMMU NOASSAY FOR THEQUALITATIVE DETERMINATION OF THE PRESENCE OF THE MAJORMETABOLITES OF DRUGS OF ABUSE. THESE TESTS ARE ONLY ASCREENING AND NOT CONFIRMATORY. CLINICAL CONSIDERATION ANDPROFESSIONAL JUDGMENT MUST BE APPLIED TO ANY DRUG OF ABUSETEST RESULT. ID Date Data Source [id number] 07/21/2019 01:33:00 PM EDT [facility] [id number] Name Value Range Interpretation Code Description Data Shelbi rce(s) Supporting Document(s) HCG URINE NEGATIVE NEGATIVE [facility] ID Date Data Source [id number] 07/21/2019 01:47:00 PM EDT [facility] ital TSYSORDER [id number] Name Value Range Interpretation Code Description Data Shelbi rce(s) Supporting Document(s) URINE COLOR. YELLOW [facility] URINE APPEARANCE SLIGHTY CLOUDY [place] [facility]ital SPECIFIC GRAVITY,URINE 1.025 1.001-1.035 [facility] URINE LEUKOCYTE ESTERASE NEGATIVE NEGATIVE [facility] URINE NITRATE NEGATIVE NEGATIVE [facility] PH,URINE 6.5 5.0-9.0 [facility] URINE PROTEIN NEGATIVE mg/dL NEGATIVE [facility] GLUCOSE (UA) NEGATIVE mg/dL NEGATIVE [facility] URINE KETONE NEGATIVE mg/dL NEGATIVE [facility] UROBILINOGEN NORMAL(0.2-1) mg/dL 0-1 R [facility] URINE BILIRUBIN NEGATIVE NEGATIVE [facility] URINE BLOOD 3+(LARGE) NEGATIVE H [facility] ID Date Data Source [id number] 07/21/2019 01:47:00 PM EDT [facility] l TSYSORDER [id number] Name Value Range Interpretation Code Description Data Shelbi rce(s) Supporting Document(s) URINE RBC 10-15 /hpf 0-3 H [facility] URINE WBC 3-5 /hpf 0-5 [facility] URINE EPITHELIAL CELLS 1+ /hpf 0 [facility] ID Date Data Source [id number] 07/07/2019 02:08:00 PM EDT [facility] [address] [place] [address] PHONE: [phone] FAX: [phone] Name .................. : JOE Knutson Acct Number.................. : [id number] ROOM. ................. : TR-07 MR Number ................... : [id number] Stay type ............. : E/R Discharge Date......... ... : Admit Date ......... : 07/06/19 Admit Phys .................... : VENERUS BR Date of ....... : 1990 Family Phys ................... : UNKNOWN Phone .................. : [phone] Age ................................ : 29 Film# .................. .:[id number] Sex ................................. : F Unsigned transcriptions are preliminary reports and do not represent a medical or legal document CT HEAD W/O CONTRAST [id number] COMPLETE:07/06/19 20:23 DLA 74170 Reason(s): Head Injury CT OF THE HEAD WITHOUT CONTRAST: COMPARISON: 06/19/19 FINDINGS: There are bilateral GLASS FURNACE TENDER shunt tubes present with their tips at [...] or acute fracture is identified. IMPRESSION: Bilateral GLASS FURNACE TENDER shunt catheter tubes in place. No acute [...] rce(s) Supporting Document(s) ID Date Data Source [id number] 07/06/2019 06:01:00 PM EDT [facility] 1 OrderSheet [facility] Emergency Department [address] [place] [address] Phone #: ext- [phone] 07/06/2019 17:58 Patient: [...] Webster RN Physician;Blood Culture STAT 18:07/06/2019 18:14 Nsvtal49c X2 (Keyur Webster RN18:07/06/2019) Physician;Blood Culture STAT 18:13 07/06/2019 18:14 Bagjll21v X2 (Sched Inocencio Webster RN18:23 07/06/2019) Physician;HCG Serum Qual STAT 18:14 07/06/2019 18:18 Maurisio Webster RN Physician;DIAGNOSTIC STUDY ORDERSOrder Description Priority Entered Acknowledged InitialedCT Head W/O Cont STAT 18:13 07/06/2019 18:14 Maurisio(Oxygen?(No)) Inocencio Webster RN Physician; NOTES: GLASS FURNACE TENDER shunt with possible recent trauma Reason for Study: Head Injury, HeadacheMEDICATION/IV/DRIP/FLUID ORDERS 2 OrderSheet [facility] Emergency Department [address] [place] [address] Phone #: ext- [phone] 07/06/2019 17:58 Patient: [...] Inocencio Will (21:32 07/06/2019)][Electronically signed by Rika Saldana R.N. (:36 07/07/2019)][Electronically locked by Rika Saldana R.N. (36 07/07/2019)] Name Value Range Interpretation Code Description Data Shelbi rce(s) Supporting Document(s) ID Date Data Source [id number] 07/06/2019 06:01:00 PM EDT [facility] 1 Medication Reconciliation Report [facility] Emergency Department [address] [place] [address] Phone #: ext- [phone] 07/06/2019 17:58 Patient: [...] 07/06/2019 8:35:00 PM 2 Medication Reconciliation Report [facility] Emergency Department [address] [place] [address] Phone #: ext- [phone] 07/06/2019 17:58 Patient: NIMA DIAZ Sex: F : 1990 Age: 29yZofran ODT [PO] PO 4 mg, administered: 07/06/2019 8:53:00 PMToradol [IM] IM 30 mg, administered: 07/06/2019 8:53:00 PMThe following Medications were prescribed to the patient:None. Name Value Range Interpretation Code Description Data Shelbi rce(s) Supporting Document(s) ID Date Data Source [id number] 07/06/2019 06:01:00 PM EDT [facility] 1 Medication Administration Record [facility] Emergency Department [address] [place] [address] Phone #: ext [phone] 07/06/2019 17:58 Patient: NIMA DIAZ Sex: F [...] rce(s) Supporting Document(s) ID Date Data Source [id number] 07/06/2019 06:01:00 PM EDT [facility] 1 General Instructions [facility] Emergency Department [address] [place] [address] Phone #: ext- [phone] 07/06/2019 17:58 Patient: [...] and Head injury / headache / dysfunctional GLASS FURNACE TENDER shunt.Understanding of the discharge instructions verbalized by [...] exam, is Headinjury / headache / dysfunctional GLASS FURNACE TENDER shunt and has been discussed with the [...] receiving the recommended care. 2 General Instructions [facility] Emergency Department [address] [place] [address] Phone #: ext- [phone] 07/06/2019 17:58 Patient: NIMA DIAZ Sex: F : 1990 Age: 29y(Electronically signed by Inocencio Will, Physician 07/06/2019 21:32) Name Value Range Interpretation Code Description Data Shelbi rce(s) Supporting Document(s) ID Date Data Source [id number] 07/06/2019 06:01:00 PM EDT [facility] 1 Clinical Report - Nurses [facility] Emergency Department [address] [place] [address] Phone #: ext- [phone] 07/06/2019 17:58 Patient: [...] This occurred (2.5 hrs). 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 (325mg x3).SEPSIS SCREEN: Negative [...] Brock RN [facility]ias. --18:14 07/06/19 aMurisio Webster RN.AllergiesSulfa Antibiotics. --18:08 07/06/19 Nadine Brock RN.PROBLEMS:INTERCRANIAL HYPERTENSION.Irritable bowel syndrome (disorder).Pseudotumor cerebrae.Tension- Type Headache.Seizure.Neck Pain. 2 Clinical Report - Nurses [facility] Emergency Department [address] [place] [address] Phone #: ext- [phone] 07/06/2019 17:58 Patient: [...] Surgery. Tonsillectomy. Ventriculo Peritoneal Shunt Surgery [07/2015]. GLASS FURNACE TENDER shunt. --18:09 07/06/19 Nadine Brock RN. History [...] risk identified. --18:10 07/06/19 Nadine Brock RN.PHYSICAL BRFUYMDDRC88:17 07/06/19. Ambulatory to room.GENERAL / NEURO / PSYCH: Alert. Oriented X 4. Appears anxious. Pupillary exam: Right pupil 4mm 3 Clinical Report - Nurses [facility] Emergency Department [address] [place] [address] Phone #: ext- [phone] 07/06/2019 17:58 Patient: NIMA DIAZ Sex: F [...] RN Overall patient status is improved. 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 --19:28 07/06/19 Rika Araujo R.N. ( u/a collected and hand carried to the lab.). --19:39 07/06/19 Rika Araujo R.N. 20:35 07/06/2019 Rocephin (cefTRIAXone Sodium) IM 1 gm given. Given in the right gluteus pamela. Allergies verified and confirmed 5 rights. Information reviewed with patient including reason for taking this 4 Clinical Report - Nurses [facility] Emergency Department [address] [place] [address] Phone #: ext- [phone] 07/06/2019 17:58 Patient: NIMA DIAZ [facility]#: [id number] Sex: F : 1990 Age: 29y medication. [...] pt to higher level of care at [facility] in [place], pt decided that she wanted to go OUTPATIENT route. States that both she and her are prohibited from traveling to [place] due to his ESSENTIAL job in the [...] verbalized understanding. Written instruct ions provided in Cypriot. The patient left the Emergency Department against [...] rce(s) Supporting Document(s) ID Date Data Source [id number] 07/06/2019 06:01:00 PM EDT [facility] 1 Clinical Report - Physicians/Mid Levels [facility] Emergency Department [address] [place] [address] Phone #: ext- [phone] 07/06/2019 17:58 Patient: [...] symptoms, photophobia, numbness or weakness. (Pt. has GLASS FURNACE TENDER shunt and frequent visits to [facility] ED). No recent travel. Similar symptoms previously. Patient has had similar symptoms many times, chronically. Recent medical care: The patient was seen recently at this facility in the emergency department. ( Seen here in [facility] ED 2 weeks ago for abdominal [...] cerebriPCOS 2 Clinical Report - Physicians/Mid Levels [facility] Emergency Department [address] [place] [address] Phone #: [phone] ext- [phone] 07/06/2019 17:58 Patient: NIMA DIAZ Sex: F [...] NEGATIVE (NORMAL: NEGAT { KIT LOT # [id number] ){ KIT EXP DATE 3 Clinical Report - Physicians/Mid Levels [facility] Emergency Department [address] [place] [address] Phone #: ext- [phone] 07/06/2019 17:58 Patient: NIMA DIAZ Sex: F : 1990 Age: [id number] ){ PROCEDURAL CONTROL VALID)Urinalysis: (SOPHY: 07/06/2019 19:45) ( [facility] 07/06/2019 20:13) Final results Test Result [...] NONEDrug Screen- Urine: (SOPHY: 07/06/2019 19:45) [facility] 20:21) Final results Test Result Flag [...] PRESUMPTIVE POSITIVE CONFIRMATION WILL BE PERFORMED AT [facility].CBC w Diff: (SOPHY: 07/06/2019 18:27) ( [facility] 07/06/2019 18:41) Final results Test Result Flag Units (Reference) CBC W/AUTOMATED DIFF COMPLETE BLOOD COUNT 4 Clinical Report - Physicians/Mid Levels [facility] Emergency Department [address] [place] [address] Phone #: ext- [phone] 07/06/2019 17:58 [id number] Sex: F : 1990 Age: 29y WBC [...] Male GFR Interprentation 20-49 yrs >60 mL/min Nsrexe44-79 yrs >56 mL/min Normal 60-69 yrs >49 mL/min Normal 70-79yrs>42 mL/min Normal 80 and above >35 mL/min Normal Female GFRInterpretation 20-39 yrs >60 mL/min Normal 40-49 yrs >58 mL/minNormal 50-59 yrs >51 mL/min Normal 60-69 yrs >45 mL/min Txwpbi97-26 yrs >39 mL/min Normal 80 and above >32 mL/min Normal 5 Clinical Report - Physicians/Mid Levels [facility] Emergency Department [address] [place] [address] Phone #: ext- [phone] 07/06/2019 17:58 Patient: NIMA DIAZ Sex: F : 1990 Age: 29yCT Head W/O Cont: (SOPHY: 07/06/2019 18:13) ( MsgRcvd 07/06/2019 21:06) In ProgressCT HEAD W/O CONTRASTReason(s): Head InjuryTRANSPORTATION: WC IV? O2? Oxygen?(No) Room: ED: No CMTS: GLASS FURNACE TENDER shunt with possible recent trauma Exam CT HEAD W/[place] [address] PHONE: [phone] FAX: [phone] Name .................. : JOE Knutson Acct Number.................. : [id number] ROOM. ................. : TR-07 MR Number ................... : [id number] Stay type ............. : E/R Discharge Date......... ... : Admit Date ......... : 07/06/19 Admit Phys .................... : LADONNA CASAS Date of ....... : 1990 Family Phys ................... : UNKNOWN Phone .................. : [phone] Age ................................ : 29 Film# .................. .:[id number] Sex ................................. : F Unsigned transcriptions are preliminary reports and do not represent a medical o r legal document CT HEAD W/O CONTRAST [id number] COMPLETE:07/06/19 20:23 DLA 21841 Reason(s): Head Injury Headache CT OF THE HEAD WITHOUT CONTRAST: COMPARISON: 06/19/19 FINDINGS: There are bilateral GLASS FURNACE TENDER shunt tubes present with their tips at [...] or acute fracture is identified. IMPRESSION: Bilateral GLASS FURNACE TENDER shunt catheter tubes in place. No acute [...] <<REPDIST>> 6 Clinical Report - Physicians/Mid Levels [facility] Emergency Department [address] [place] [address] Phone #: ext- [phone] 07/06/2019 17:58 Patient: NIMA DIAZ Sex: F : 1990 Age: 29y Page [...] ED (Dr. Rosenthal). Transfer center auto-accepted to [facility] ED - Dr. Rosenthal. Will send by basic ambulance. 21:07 Jul 06 2019. Pt. has decided to leave AMA instead of transfer to [facility]. Will discharge. Critical care performed (120 minutes). [...] and Head injury / headache / dysfunctional GLASS FURNACE TENDER shunt. Understanding of the discharge instructions verbalized by patient. AMA warnings: Oriented to person, place, and time. Gives appropriate answers and rational explanation of refusal of care. No indication for involuntary commitment is present, signs of psychosis, auditory 7 Clinical Report - Physicians/Mid Levels [facility] Emergency Department [address] [place] [address] Phone #: ext- [phone] 07/06/2019 17:58 [id number] Sex: F : 1990 Age: 29y hallucinations, [...] is Head injury / headache / dysfunctional GLASS FURNACE TENDER shunt and has been discussed with the [...] I understand that a doctor at this [facility] wants to give me certain medical care. [...] rce(s) Supporting Document(s) ID Date Data Source [id number] 07/06/2019 08:21:00 PM EDT [facility] Name Value Range Interpretation Code Description Data Shelbi rce(s) Supporting Document(s) DRUG SCREEN URINE [facility] URINE DRUG SCREEN Amphetamine [Presence] in Urine by Screen method NEGATIVE NORMAL: N EGATIVE [facility] BARBITURATES NEGATIVE NORMAL: NEGATIVE [facility] BENZO NEGATIVE NORMAL: NEGATIVE [facility] COCAINE NEGATIVE NORMAL: NEGATIVE [facility] Tetrahydrocannabinol [Presence] in Urine NEGATIVE NORMAL: NEGATIVE [facility] OPIATES NEGATIVE NORMAL: NEGATIVE [facility] Phencyclidine [Presence] in Urine by Screen method NEGATIVE NOR MAL: NEGATIVE [facility] \\BLDo\\URINE DRUG SCR EEN INTERPRETATION\\BLDx\\ THE CUTOFFF LEVELS FOR DETECTION ARE FOLLOWS: AMPHETAMINES 1000 ng/ml BARBITUARATES 200 ng/ml BENZODIAZEPINES 100 ng/ml THC 50 ng/ml PHENCYCLIDINE 25 ng/ml OPIATES 300 ng/ml COCAINE 300 ng/ml ALL POSITIVES ARE CONSIDERED PRESUMPTIVE POSITIVE CONFIRMATION WILL BE PERFORMED AT PHYSICIAN REQUEST. ID Date Data Source [id number] 07/06/2019 08:12:00 PM EDT [facility] Name Value Range Interpretation Code Description Data Shelbi rce(s) Supporting Document(s) [facility]IS [facility] UR[facility]ALYS[facility] SOURCE R [facility] al COLOR yellow NORMAL: Yellow [facility] CLARITY hazy NORMAL: Clear [facility] Specific gravity of Urine by Test strip 1.025 1.001 - 1.030 [facility] pH 6 5 - 9 [facility] al Glucose [Mass/volume] in Urine by Test strip NORM NORMAL: Negat [facility] Bilirubin.total [Presence] in Urine by Test strip NEG NORMAL: Negative [facility] Ketones [Presence] in Urine by Test strip NEG NORMAL: Negative [facility] Protein [Mass/volume] in Urine by Test strip 15 NORMAL: Negat [facility] Nitrite [Presence] in Urine by Test strip NEG NORMAL: Negative [facility] BLOOD 10 NORMAL: Negative [facility] Leukocyte esterase [Presence] in Urine by Test strip NEG JESICA L: Negative [facility] Urobilinogen [Mass/volume] in Urine by Test strip NOR less melvi n 1.0 mg/dL [facility] MICROSCOPIC See Below [facility] ital WBC 0 - 1 NORMAL: NONE SEEN [facility] Erythrocytes [#/volume] in Urine by Test strip None Seen NORMAL: NON E SEEN [facility] EPITHELIAL MANY NORMAL: NONE SEEN [facility] Bacteria [Presence] in Urine sediment by Light microscopy Tr amanda NORMAL: NONE SEEN [facility] Mucus [Presence] in Urine sediment by Light microscopy 1+ NOR MAL: NONE SEEN [facility] Casts [#/area] in Urine sediment by Microscopy low power field See Be low [facility] Hyaline casts [#/area] in Urine sediment by Microscopy low p ower field 0-1 NORMAL: None Seen A [facility] Crystals [type] in Urine sediment by Light microscopy See Below [facility] CALCIUM OX 3+ NORMAL: NONE SEEN A [facility] ID Date Data Source [id number] 07/12/2019 08:10:00 AM EDT [facility] Name Value Range Interpretation Code Description Data Shelbi rce(s) Supporting Document(s) Bacteria identified in Blood by Culture [facility] NO GROWTH AFTER 5 DAYS ID Date Data Source [id number] 07/12/2019 01:29:00 PM EDT [facility] Name Value Range Interpretation Code Description Data Shelbi rce(s) Supporting Document(s) CULTURE BLOOD [facility] spital _CULTURE BLOOD_{ PRELIM TEST PERFORMED AT [address] [address] CLIA# [id number] SEE SCANNED REPORT ID Date Data Source [id number] 07/12/2019 01:28:00 PM EDT [facility] Name Value Range Interpretation Code Description Data Shelbi rce(s) Supporting Document(s) CULTURE BLOOD [facility] _CULTURE BLOOD_{ PRELIM TEST PERFORMED AT [address] [address] CLIA# [id number] SEE SCANNED REPORT ID Date Data Source [id number] 07/06/2019 06:57:00 PM EDT [facility] Name Value Range Interpretation Code Description Data Shelbi rce(s) Supporting Document(s) COMPREHENSIVE METABOLIC PANEL [facility] COMPREHENSIVE METABOLIC PANEL Sodium [Moles/volume] in Serum or Plasma 138 mEq/L 134 - 153 [facility] Potassium [Moles/volume] in Serum or Plasma 3.7 mEq/L 3.6 - 5.0 [facility] Chloride [Moles/volume] in Serum or Plasma 104 mEq/L 98 - 107 [facility] Carbon dioxide, total [Moles/volume] in Serum or Plasma 21 MEQ/L 22 - 30 L [facility] Glucose [Mass/volume] in Serum or Plasma 107 MG/DL 65 - 110 [facility] BUN 17 MG/DL 7 - 21 [facility] al Creatinine [Mass/volume] in Serum or Plasma 0.8 MG/DL 0.7 - 1.5 [facility] BUN/CREAT 21 8 - 27 [facility] Protein [Mass/volume] in Serum or Plasma 7.6 G/DL 6.3 - 8.2 [facility] Albumin [Mass/volume] in Serum or Plasma 4.5 G/DL 3.9 - 5.0 [facility] Globulin [Mass/volume] in Serum by calculation 3.1 GM/DL 2.4 - 3.2 [facility] A/G RATIO 1.5 0.8 - 2.0 [facility] Calcium [Mass/volume] in Serum or Plasma 9.1 MG/DL 8.4 - 10.2 [facility] Bilirubin.total [Mass/volume] in Serum or Plasma <0.7 MG/DL 0.2 - 1.3 [facility] Alkaline phosphatase [Enzymatic activity/volume] in Serum or Plasma 89 U/L 38 - 126 [facility] Aspartate aminotransferase [Enzymatic activity/volume] in Serum or Plasma 23 U/L 5 - 40 [facility] Alanine aminotransferase [Enzymatic activity/volume] in Seru m or Plasma 34 U/L 7 - 56 [facility] Anion gap 3 in Serum or Plasma 13.0 mmol/L 8.0 - 16.0 [facility] AGE 29 yrs [facility] al NON-AA GFR >60 mL/min [facility] ital AFR AMER GFR >60 mL/min [facility] Ho spital Male GFR In terprentation 20-49 [...] >32 mL/min Normal ID Date Data Source [id number] 07/06/2019 06:50:00 PM EDT [facility] Name Value Range Interpretation Code Description Data Shelbi rce(s) Supporting Document(s) HCG SERUM QUAL NEGATIVE NORMAL: NEGATIVE [facility] HCG SERUM QL REENTER NEGATIVE NORMAL: NEGATIVE [facility] { KIT LOT # [id number] ){ KIT EXP DATE 01-02-21 ){ PROCEDURAL CONTROL VALID ) ID Date Data Source [id number] 07/06/2019 06:40:00 PM EDT [facility] Name Value Range Interpretation Code Description Data Shelbi rce(s) Supporting Document(s) CBC W/AUTOMATED DIFF [facility] COMPLETE BLOOD COUNT Leukocytes [#/volume] in Blood by Automated count 12.3 10^3/uL 4.2 - 11.0 H [facility] Erythrocytes [#/volume] in Blood by Automated count 4.47 10^6/uL 4. 20 - 5.40 [facility] Hemoglobin [Mass/volume] in Blood 13.7 g/dL 12.0 - 16.0 [facility] Hematocrit [Volume Fraction] of Blood by Automated count 41.3 % 3 7.0 - 47.0 [facility] Erythrocyte mean corpuscular volume [Entitic volume] by Auto mated count 92.4 fL 81.0 - 101 [facility] Erythrocyte mean corpuscular hemoglobin [Entitic mass] by Automated count 30.6 pg 27.0 - 34.0 [facility] Erythrocyte mean corpuscular hemoglobin concentration [Mass/volume] by Automated count 33.2 g/dL 31.0 - 36.0 [facility] Erythrocyte distribution width [Ratio] by Automated count 12.8 % 11.5 - 14.5 [facility] Platelets [#/volume] in Blood by Automated count 400 10^3/uL 150 - 45 0 [facility] Platelet mean volume [Entitic volume] in Blood by Automated count 9.2 fL 7.4 - 10.4 [facility] Neutrophils/100 leukocytes in Blood by Automated count 70.5 % 37. 0 - 80.0 [facility] Lymphocytes/100 leukocytes in Blood by Manual count 20.3 % 25.0 - 40.0 L [facility] Monocytes/100 leukocytes in Blood by Automated count 5.9 % 3.0 - 8.0 [facility] Eosinophils/100 leukocytes in Blood by Automated count 2.2 % 0.0 - 7.0 [facility] Basophils/100 leukocytes in Blood by Automated count 0.7 % 0.0 - 2.5 [facility] %IG 0.4 % 0.0 - 0.0 H [facility] al %NRBC 0.0 % 0.0 - 0.0 [facility] Neutrophils [#/volume] in Blood by Automated count 8.68 10^3/uL 2.00 - 6.90 H [facility] Lymphocytes [#/volume] in Blood by Automated count 2.50 10^3/uL 0.60 - 3.40 [facility] Monocytes [#/volume] in Blood by Automated count 0.73 10^3/uL 0.00 - 0.90 [facility] Eosinophils [#/volume] in Blood by Automated count 0.27 10^3/uL 0.00 - 0.70 [facility] Basophils [#/volume] in Blood by Automated count 0.09 10^3/uL 0.00 - 0.20 [facility] #IG 0.05 10^3/uL 0.00 - 0.10 [facility] H ospital #NRBC 0.00 10^3/uL 0.00 - 0.00 [facility]sp[facility] MANUAL DIFF NOT INDICATED [facility] RBC MORPH NOT INDICATED [facility] spital ID Date Data Source [id number] 06/24/2019 10:00:00 AM EDT [facility] [address] [place] [address] PHONE: [phone] FAX: [phone] Name .................. : JOE Knutson Acct Number.................. : [id number] ROOM. ................. : TR-02 Number ................... : [id number] Stay type ............. : E/R Discharge Date......... ... : 06/19/19 Admit Date ......... : 06/19/19 Admit Phys .................... : NISSA LIU Date of ....... : 1990 Family Phys ................... : UNKNOWN Phone .................. : [phone] Age ................................ : 29 Film# .................. .:[id number] Sex ................................. : F Unsigned transcriptions are preliminary reports and do not represent a medical or legal document CHEST 2 VIEWS 76992 COMPLETE:06/19/19 16:29 [facility] [address]87 Reason(s): GLASS FURNACE TENDER shunt, headache, [place] CHEST X-RAY: PA AND LATERAL VIEWS FINDINGS: Right-sided GLASS FURNACE TENDER shunt tubing present over the medial right hemithorax. The lung maddox are clear. The heart and mediastinum are normal. No acute disease and no change from 10/15/18. Electronically Reviewed and Signed By CHAITANYA WOLFF MD , 06/24/19 10:00, [facility] Transcribe Initials: JIE , Transcribe Date: 06/20/19 11:39, Dictation Date: Copy for: [facility] via fax Copy for: EMERGENCY DEPT via gould[employer] Copy for: 710 MED REC DISCHARGED Page 1 of 1 Name Value Range Interpretation Code Description Data Shelbi rce(s) Supporting Document(s) ID Date Data Source [id number] 06/24/2019 09:59:[facility] [address] [place] [address] PHONE: [phone] FAX: [phone] Name .................. : JOE Knutson Acct Number.................. : [id number] ROOM. ................. : TR-02 MR Number ................... : [id number] Stay type ............. : E/R Discharge Date......... ... : 06/19/19 Admit Date ......... : 06/19/19 Admit Phys .................... : NISSA LIU Date of ....... : 1990 Family Phys ................... : UNKNOWN Phone .................. : [phone] Age ................................ : 29 Film# .................. .:[id number] Sex ................................. : F Unsigned transcriptions are preliminary reports and do not represent a medical or legal document CT HEAD W/O CONTRAST [id number] COMPLETE:06/19/19 15:00 KBO 95677 Reason(s): GLASS FURNACE TENDER shunt, headache CT OF THE HEAD WITHOUT CONTRAST ENHANCEMENT: HISTORY: GLASS FURNACE TENDER shunt, headache COMPARISON: 03/04/19 FINDINGS: Bilateral frontal [...] By CHAITANYA WOLFF MD , 06/24/19 09:59, [facility] Transcribe Initials: DZ , Transcribe Date: 06/20/19 11:38, Dictation Date: Page 1 of 2 [facility] [address] [place] [address] PHONE: [phone] FAX: [phone] Name .................. : JOE Knutson Acct Number.................. : [id number] ROOM. ................. : TR-02 MR Number ................... : [id number] Stay type ............. : E/R Discharge Date......... ... : 06/19/19 Admit Date ......... : 06/19/19 Admit Phys .................... : NISSA LIU Date of ....... : 1990 Family Phys ................... : UNKNOWN Phone .................. : [phone] Age ................................ : 29 Film# .................. .:[id number] Sex ................................. : F Unsigned transcriptions are preliminary reports and do not represent a medical or legal document CT HEAD W/O CON TRAST [id number] COMPLETE:06/19/19 15:00 KBO 84033 Reason(s): GLASS FURNACE TENDER shunt, headache Copy for: [facility] via fax Copy for: EMERGENCY DEPT via modem Copy for: 710 MED REC DISCHARGED Page 2 of 2 Name Value Range Interpretation Code Description Data Shelbi rce(s) Supporting Document(s) ID Date Data Source [id number] 06/23/2019 04:44:00 PM EDT [facility] [address] [place] [address] PHONE: [phone] FAX: [phone] Name .................. : JOE Knutson Acct Number.................. : [id number] ROOM. ................. : TR-02 MR Number ................... : [id number] Stay type ............. : E/R Discharge Date......... ... : 06/19/19 Admit Date ......... : 06/19/19 Admit Phys .................... : NISSA LIU Date of ....... : 1990 Family Phys ................... : UNKNOWN Phone .................. : [phone] Age ................................ : 29 Film# .................. .:[id number] Sex ................................. : F Unsigned transcriptions are preliminary reports and do not represent a medical or legal document CT ABD & PELVIS W/ IV ONLY [id number] COMPLETE:06/19/19 15:00 KBO 92830 Reason(s): L sided abd pain, NVD, hx GLASS FURNACE TENDER shunt, headache CT SCAN OF THE ABDOMEN AND PELVIS WITH CONTRAST: COMPARISON: 07/09/18 FINDINGS: Acute pathology is not identified at the lung bases. There is mild fatty infiltration of the liver without hepatic mass or biliary dilatation. The patient is status post cholecystectomy. The spleen, pancreas, adrenal glands and kidneys are unremarkable. There is no acute bowel pathology. Two GLASS FURNACE TENDER shunts are seen entering the peritoneal cavity. The uterus, adnexa and urinary bladder are unremarkable. Trace amount of free fluid is seen along the floor of the pelvis which may be physiologic in nature and are related to GLASS FURNACE TENDER shunt placement. There is no acute osseous abnormality. No acute bowel pathology, abscess and pneumoperitoneum are not seen. The appendix is not visualized, however evidence for appendicitis is not identified. IMPRESSION: Fatty liver. No hepatic mass or biliary dilatation. GLASS FURNACE TENDER shunt is noted. Small amount of free fluid along the floor of the pelvis possible physiologic in nature or related to GLASS FURNACE TENDER shunts. No suspicious adnexal mass. Normal size follicles noted in the ovaries with the largest follicle in the right ovary measuring 1.8 cm. Appendix not seen, however no evidence for appendicitis noted. No acute bowel pathology. Otherwise unremarkable examination. Page 1 of 2 [facility] [address] [place] [address] PHONE: [phone] FAX: [phone] Name .................. : JOE Knutson Acct Number.................. : [id number] ROOM. ................. : TR-02 Number ................... : [id number] Stay type ............. : E/R Discharge Date......... ... : 06/19/19 Admit Date ......... : 06/19/19 Admit Phys .................... : NISSA LIU Date of ....... : 1990 Family Phys ................... : UNKNOWN Phone .................. : [phone] Age ................................ : 29 Film# .................. .:[id number] Sex ................................. : F Unsigned transcriptions are preliminary reports and do not represent a medical or legal document CT ABD & PELVIS W/ IV ONLY [id number] COMPLETE:06/19/19 15:00 KBO 06987 Reason(s): L sided abd pain, NVD, hx GLASS FURNACE TENDER shunt, headache While performing the above CT [...] rce(s) Supporting Document(s) ID Date Data Source [id number] 06/19/2019 12:28:00 PM EDT [facility] 1 OrderSheet [facility] Emergency Department [address] [place] [address] Phone #: [phone]- [phone] 06/19/2019 12:23 Patient: NIMA DIAZ Sex: F [...] Study: L sided abd pain, NVD, hx GLASS FURNACE TENDER shunt, headacheCT Head W/O Cont STAT 14:10 06/19/2019 14:30 [place], 2 OrderSheet [facility] Emergency Department [address] [place] [address] Phone #: ext- [phone] 06/19/2019 12:23 Patient: NIMA DIAZ Sex: F : 1990 Age: 29y(Oxygen?(No)) Renzo BALBUENA; Pmea Marcus Reason for Study: GLASS FURNACE TENDER shunt, headacheChest 2 View STAT 14:06/19/2019 14:30 [place](Oxygen?(No)) Renzo Mcadams R.N. Reason for Study: GLASS FURNACE TENDER shunt, headache, NVMEDICATION/IV/DRIP/FLUID ORDERSOrder Description Priority Entered [...] rce(s) Supporting Document(s) ID Date Data Source [id number] 06/19/2019 12:28:00 PM EDT [facility] 1 Medication Reconciliation Report [facility] Emergency Department [address] [place] [address] Phone #: ext- [phone] 06/19/2019 12:23 Patient: [...] 06/19/2019 2:30:00 PM 2 Medication Reconciliation Report [facility] Emergency Department [address] [place] [address] Phone #: ext- [phone] 06/19/2019 12:23 Patient: NIMA DIAZ Sex: F : 1990 Age: 29yThe following Medications were prescribed to the patient:None. Name Value Range Interpretation Code Description Data Shelbi rce(s) Supporting Document(s) ID Date Data Source [id number] 06/19/2019 12:28:00 PM EDT [facility] 1 Medication Administration Record [facility] Emergency Department [address] [place] [address] Phone #: ext- [phone] 06/19/2019 12:23 Patient: [...] rce(s) Supporting Document(s) ID Date Data Source [id number] 06/19/2019 12:28:00 PM EDT [facility] 1 General Instructions [facility] Emergency Department [address] [place] [address] Phone #: ext- [phone] 06/19/2019 12:23 Patient: [...] to plan of care. 2 General Instructions [facility] Emergency Department [address] [place] [address] Phone #: ext- [phone] 06/19/2019 12:23 Patient: NIAM DIAZ Sex: F : 1990 Age: 29y [...] or different treatment. Additional 3 General Instructions [facility] Emergency Department [address] [place] [address] Phone #: ext- [phone] 06/19/2019 12:23 Patient: [...] begin to improve in thenext 24 hours.Call [phone] if any of these occur: 4 General Instructions [facility] Emergency Department [address] [place] [address] Phone #: ext- [phone] 06/19/2019 12:23 Patient: NIMA DIAZ Sex: F [...] or water and you are getting dehydrated [id number] [employer]. [address] [place] [address], [place] [address]. All rights reserved. This information is not intended as asubstitute for professional medical care. Always follow your healthcare professional's instructions.[place] DietYour healthcare provider may recommend a bland diet if you have an upset stomach. It consists offoods that are mild and easy to digest. It is better to eat small frequent meals rather than 3 largemeals a day. 5 General Instructions [facility] Emergency Department [address] [place] [address] Phone #: ext- [phone] 06/19/2019 12:23 Patient: [...] of fruit, dried fruitMeats 6 General Instructions [facility] Emergency Department [address] [place] [address] Phone #: ext- [phone] 06/19/2019 12:23 Patient: [...] extracts, marisa, cinnamon, thyme, mace, allspice, paprikaAvoid: [place] powder, cloves, pepper, seed spices, garlic, gravy pickles, highly seasoned saladdressings [phone] [employer]. [address] [place] [address]. All rights reserved. This information is not intended as asubstitute for professional medical care. Always follow your healthcare professional's instructions.Clear Liquid Diet 7 General Instructions [facility] Emergency Department [address] [place] [address] Phone #: voc- [phone] 06/19/2019 12:23 Patient: NIMA DIAZ Sex: F [...] most grocery stores. You don't need aprescription. [phone] [employer]. [address] [place] [address]. All rights reserved. This information is not intended as asubstitute for professional medical care. Always follow your healthcare professional's instructions. You have been given the following additional information: Abdominal Pain, Unknown Cause, (Female) Diet, [place] (Adult) Clear Liquid Diet 8 General Instructions [facility] Emergency Department [address] [place] [address] Phone #: ext- [phone] 06/19/2019 12:23 Patient: NIMA DIAZ Sex: F : 1990 Age: 29yNo strenuous activity until better. Rest at home for one days. Do not work for three days.(Electronically signed by SREE Jean 06/19/2019 21:49) Name Value Range Interpretation Code Description Data Shelbi rce(s) Supporting Document(s) ID Date Data Source [id number] 06/19/2019 12:28:00 PM EDT [facility] 1 Clinical Report - Nurses [facility] Emergency Department [address] [place] [address] Phone #: ext- [phone] 06/19/2019 12:23 Patient: [...] "Have you 2 Clinical Report - Nurses [facility] Emergency Department [address] [place] [address] Phone #: ext- [phone] 06/19/2019 12:23 Patient: NIMA DIAZ Sex: F [...] IV flushed 3 Clinical Report - Nurses [facility] Emergency Department [address] [place] [address] Phone #: ext- [phone] 06/19/2019 12:23 ---- [...] Patient verbalized understanding. Written instructions provided in Cypriot. The patient was discharged home. She left [...] rce(s) Supporting Document(s) ID Date Data Source [id number] 06/19/2019 12:28:00 PM EDT [facility] 1 Clinical Report - Physicians/Mid Levels [facility] Emergency Department [address] [place] [address] Phone #: ext- [phone] 06/19/2019 12:23 Patient: NIMA DIAZ Sex: F : 1990 Age: 29y Time Seen: 12:27 06/19/2019. Arrived- By private vehicle. Historian- patient. Disposition decision: 15:21 06/19/2019.HISTORY OF PRESENT ILLNESS Chief Complaint: ABDOMINAL PAIN. This started about 1 months ago; ! month hx L sided abdominal pain with NVD, pain 8/10, also has intermittent fever, also states dull L sided headache with hx of GLASS FURNACE TENDER shunt, which she states is not functioning and she has recently been seen at [facility] for to be replaced, and also has upcoming appt at [facility] for same. It is described as [...] travel in the last two (2) weeks- [facility]. Similar symptoms previously. Patient has had [...] Headache. 2 Clinical Report - Physicians/Mid Levels [facility] Emergency Dep artment [address] [place] [address] Phone #: ext- [phone] 06/19/2019 12:23 Patient: NIMA DIAZ Sex: F [...] surgery. Tonsillectomy. Ventriculo Peritoneal Shunt Surgery [07/2015]. GLASS FURNACE TENDER shunt.SOCIAL HISTORYNever smoker. No alcohol use or [...] anxiety. 3 Clinical Report - Physicians/Mid Levels [facility] Emergency Department [address] [place] [address] Phone #: ext- [phone] 06/19/2019 12:23 Patient: [...] by me. Interpretation time: 15:28 06/19/2019.[address]dominal CT: GLASS FURNACE TENDER shunts present. Fatty liver. Trace free fluid [...] 3.40) 4 Clinical Report - Physicians/Mid Levels [facility] Emergency Department [address] [place] [address] Phone #: ext- [phone] 06/19/2019 12:23 Patient: [...] Male GFR Interprentation 20-49 yrs >60 mL/min Brfciz49-22 yrs >56 mL/min Normal 60- 69 yrs >49 mL/min Normal 70-79yrs>42 mL/min Normal 80 and above >35 mL/min Normal Female GFRInterpretation 20-39 yrs >60 mL/min Normal 40-49 yrs >58 mL/minNormal 50-59 yrs >51 mL/min Normal 60-69 yrs >45 mL/min Kttavh08-84 yrs >39 mL/min Normal 80 and above >32 mL/min NormalLipase: (SOPHY: 06/19/2019 13:06) ( MsgRcvd 06/19/2019 13:46) Final results Test Result Flag Units (Reference) LIPASE 51 U/L (13 - 60)Beta-HCG, Qual Urine: (SOPHY: 06/19/2019 12:23) ( MsgRcvd 06/19/2019 13:06) Final results Test Result Flag Units (Reference) HCG URINE QUAL NEGATIVE (NORMAL: NEGAT HCG URINE QL REENTER NEGATIVE (NORMAL: NEGAT { KIT LOT # [id number] ){ KIT EXP DATE01/02/21 ){ PROCEDURAL CONTROL VALID)PT/PTT: (SOPHY: 06/19/2019 13:06) ( MsgRcvd 06/19/2019 13:35) Final results Test Result Flag Units (Reference) PROTIME 11.8 SECONDS (11.0 - 15.5) 5 Clinical Report - Physicians/Mid Levels [facility] Emergency Department [address] [place] [address] Phone #: ext- [phone] 06/19/2019 12:23 Patient: NIMA DIAZ Sex: F : 1990 Age: 29y INR 0.86 L (0.93 - 1.23) PTT 28.1 SECONDS (24.8 - 36.7) \\BLDo\\INR INTERPRETATION\\BLDx\\ Therapeutic range for Coumadin and related oral anticoagulants. -International Normalized Ratio (INR): 2.0 - 3.0 for Venous Thrombosis, Pulmonary Embolus, Tissue heart valves, Acute [place] Atrial Fibrillation, Valvular heart disease and recurrent [...] cause. 6 Clinical Report - Physicians/Mid Levels [facility] Emergency Department [address] [place] [address] Phone #: ext- [phone] 06/19/2019 12:23 Patient: NIMA DIAZ Sex: F [...] 06/19/2019 21:49) 7Clinical Report - Physicians/Mid Levels [facility] Emergency Department [address] [place] [address] Phone #: ext- [phone] 06/19/2019 12:23 [id number] Sex: F : 1990 Age: 29y Name Value Range Interpretation Code Description Data Shelbi rce(s) Supporting Document(s) ID Date Data Source [id number] 06/19/2019 08:13:00 PM EDT [facility] Name Value Range Interpretation Code Description Data Shelbi rce(s) Supporting Document(s) LAB - SPECIMEN REJECTION [facility] Specimen Integrity/Specimen Recollection The patient sample needs to be resubmitted for the following reason: Test(s) Ordered LACTIC ACID [facility] Rejection Reason Sample Compromised [facility] FOUND SAMPLE AT 1730 IN SHARPSCONTAINER{ One or more of the tests you ordered cannot be performed.{ Please recollect, reorder, and resubmit if needed. ID Date Data Source [id number] 06/24/2019 06:03:00 PM EDT [facility] 9208 Name Value Range Interpretation Code Description Data Shelbi rce(s) Supporting Document(s) Bacteria identified in Blood by Culture [facility] NO GROWTH AFTER 5 DAYS ID Date Data Source [id number] 06/25/2019 10:49:00 AM EDT [facility] Name Value Range Interpretation Code Description Data Shelbi rce(s) Supporting Document(s) CULTURE BLOOD [facility] Ho spital _CULTURE BLOOD_ TEST PERFORM ED AT [address] [address] CLIA# [id number] SEE SCANNED REPORT{ PRELIM ID Date Data Source [id number] 06/25/2019 10:48:00 AM EDT [facility] Name Value Range Interpretation Code Description Data Shelbi rce(s) Supporting Document(s) CULTURE BLOOD [facility] Ho spital _CULTURE BLOOD_ TEST PERFORM ED AT [address] [address] CLIA# [id number] SEE SCANNED REPORT{ PRELIM ID Date Data Source [id number] 06/19/2019 01:49:00 PM EDT [facility] Name Value Range Interpretation Code Description Data Shelbi rce(s) Supporting Document(s) COMPREHENSIVE METABOLIC PANEL [facility] COMPREHENSIVE METABOLIC PANEL Sodium [Moles/volume] in Serum or Plasma 140 mEq/L 134 - 153 [facility] Potassium [Moles/volume] in Serum or Plasma 3.9 mEq/L 3.6 - 5.0 [facility] Chloride [Moles/volume] in Serum or Plasma 107 mEq/L 98 - 107 [facility] Carbon dioxide, total [Moles/volume] in Serum or Plasma 18 MEQ/L 22 - 30 L [facility] Glucose [Mass/volume] in Serum or Plasma 89 MG/DL 65 - 110 [facility] BUN 18 MG/DL 7 - 21 [facility] Creatinine [Mass/volume] in Serum or Plasma 0.7 MG/DL 0.7 - 1.5 [facility] BUN/CREAT 26 8 - 27 [facility] Protein [Mass/volume] in Serum or Plasma 7.0 G/DL 6.3 - 8.2 [facility] Albumin [Mass/volume] in Serum or Plasma 4.5 G/DL 3.9 - 5.0 [facility] Globulin [Mass/volume] in Serum by calculation 2.5 GM/DL 2.4 - 3.2 [facility] A/G RATIO 1.8 0.8 - 2.0 [facility] Calcium [Mass/volume] in Serum or Plasma 9.5 MG/DL 8.4 - 10.2 [facility] Bilirubin.total [Mass/volume] in Serum or Plasma <0.7 MG/DL 0.2 - 1.3 [facility] Alkaline phosphatase [Enzymatic activity/volume] in Serum or Plasma 102 U/L 38 - 126 [facility] Aspartate aminotransferase [Enzymatic activity/volume] in Serum or Plasma 42 U/L 5 - 40 H [facility] Alanine aminotransferase [Enzymatic activity/volume] in Seru m or Plasma 65 U/L 7 - 56 H [facility] Anion gap 3 in Serum or Plasma 15.0 mmol/L 8.0 - 16.0 [facility] AGE 29 yrs [facility] NON-AA GFR >60 mL/min [facility] ital AFR AMER GFR >60 mL/min [facility] Ho spital Male GFR In terprentation 20-49 [...] >32 mL/min Normal ID Date Data Source [id number] 06/19/2019 01:45:00 PM EDT [facility] Value Range Interpretation Code Description Data Shelbi rce(s) Supporting Document(s) Lipase [Enzymatic activity/volume] in Serum or Plasma 51 U/L 13 - 60 [facility] ID Date Data Source [id number] 06/19/2019 01:35:00 PM EDT [facility] Name Value Range Interpretation Code Description Data Shelbi rce(s) Supporting Document(s) Prothrombin time (PT) 11.8 SECONDS 11.0 - 15.5 [facility] INR in Platelet poor plasma by Coagulation assay 0.86 0.93 - 1. 23 L [facility] aPTT in Blood by Coagulation assay 28.1 SECONDS 24.8 - 36.7 [facility] \\BLDo\\INR INTERPRETATION\\BLDx\\ Therapeutic range for Coumadin and related oral anticoagulants. - International Normalized Ratio (INR): 2.0 - 3.0 for Venous Thrombosis, Pulmonary Embolus, Tissue heart valves, Acute [place] Atrial Fibrillation, Valvular heart disease and recurrent [...] and other interferences. ID Date Data Source [id number] 06/19/2019 01:29:00 PM EDT [facility] Name Value Range Interpretation Code Description Data Shelbi rce(s) Supporting Document(s) CBC W/AUTOMATED DIFF [facility] COMPLETE BLOOD COUNT Leukocytes [#/volume] in Blood by Automated count 9.8 10^3/uL 4.2 - 1 1.0 [facility] Erythrocytes [#/volume] in Blood by Automated count 4.39 10^6/uL 4. 20 - 5.40 [facility] Hemoglobin [Mass/volume] in Blood 13.3 g/dL 12.0 - 16.0 [facility] Hematocrit [Volume Fraction] of Blood by Automated count 41.0 % 3 7.0 - 47.0 [facility] Erythrocyte mean corpuscular volume [Entitic volume] by Auto mated count 93.4 fL 81.0 - 101 [facility] Erythrocyte mean corpuscular hemoglobin [Entitic mass] by Automated count 30.3 pg 27.0 - 34.0 [facility] Erythrocyte mean corpuscular hemoglobin concentration [Mass/volume] by Automated count 32.4 g/dL 31.0 - 36.0 [facility] Erythrocyte distribution width [Ratio] by Automated count 13.4 % 11.5 - 14.5 [facility] Platelets [#/volume] in Blood by Automated count 368 10^3/uL 150 - 45 0 [facility] Platelet mean volume [Entitic volume] in Blood by Automated count 9.3 fL 7.4 - 10.4 [facility] Neutrophils/100 leukocytes in Blood by Automated count 68.0 % 37. 0 - 80.0 [facility] Lymphocytes/100 leukocytes in Blood by Manual count 20.9 % 25.0 - 40.0 L [facility] Monocytes/100 leukocytes in Blood by Automated count 7.2 % 3.0 - 8.0 [facility] Eosinophils/100 leukocytes in Blood by Automated count 3.0 % 0.0 - 7.0 [facility] Basophils/100 leukocytes in Blood by Automated count 0.5 % 0.0 - 2.5 [facility] %IG 0.4 % 0.0 - 0.0 [facility] %NRBC 0.0 % 0.0 - 0.0 [facility] al Neutrophils [#/volume] in Blood by Automated count 6.66 10^3/uL 2.00 - 6.90 [facility] Lymphocytes [#/volume] in Blood by Automated count 2.04 10^3/uL 0.60 - 3.40 [facility] Monocytes [#/volume] in Blood by Automated count 0.70 10^3/uL 0.00 - 0.90 [facility] Eosinophils [#/volume] in Blood by Automated count 0.29 10^3/uL 0.00 - 0.70 [facility] Basophils [#/volume] in Blood by Automated count 0.05 10^3/uL 0.00 - 0.20 [facility] #IG 0.04 10^3/uL 0.00 - 0.10 [facility] ospital #NRBC 0.00 10^3/uL 0.00 - 0.00 [facility] ospital MANUAL DIFF NOT INDICATED [facility] RBC MORPH NOT INDICATED [facility]ital ID Date Data Source [id number] 06/19/2019 01:05:00 PM EDT [facility] Name Value Range Interpretation Code Description Data Shelbi rce(s) Supporting Document(s) HCG URINE QUAL NEGATIVE NORMAL: NEGATIVE [facility] HCG URINE QL REENTER NEGATIVE NORMAL: NEGATIVE [facility] { KIT LOT # [id number] ){ KIT EXP DATE 01/02/21 ){ PROCEDURAL CONTROL VALID ) ID Date Data Source [id number] 06/19/2019 01:05:00 PM EDT [facility] Name Value Range Interpretation Code Description Data Shelbi rce(s) Supporting Document(s) UR[facility]ALYSIS [facility] UR[facility] SOURCE R [facility] COLOR yellow NORMAL: Yellow [facility] CLARITY clear NORMAL: Clear [facility] Specific gravity of Urine by Test strip 1.025 1.001 - 1.030 [facility] pH 5 5 - 9 [facility] al Glucose [Mass/volume] in Urine by Test strip NORM NORMAL: Negat roger [facility] Bilirubin.total [Presence] in Urine by Test strip NEG NORMAL: Negative [facility] Ketones [Presence] in Urine by Test strip NEG NORMAL: Negative [facility] Protein [Mass/volume] in Urine by Test strip NEG NORMAL: Negat roger [facility] Nitrite [Presence] in Urine by Test strip NEG NORMAL: Negative [facility] BLOOD NEG NORMAL: Negative [facility] Leukocyte esterase [Presence] in Urine by Test strip NEG JESICA L: Negative [facility] Urobilinogen [Mass/volume] in Urine by Test strip NOR less melvi n 1.0 mg/dL [facility] MICROSCOPIC Not Indicate [facility] ospital ID Date Data Source [id number] 06/16/2019 09:15:00 AM EDT [facility] Patient: NIMA DIAZ Observation Re port - Physicians/Mid Levels [facility].VisitID: [id number] [place] [address] [phone], FRegistration Date/Time: 06/09/2019 17:04 Weight:106.1 kg (S). Height/Length:62 inches (S). BMI:42.8 PAST HISTORYProblems:Polycystic ovarian syndrome [Chronic].Abdominal Pain [Chronic].Pseudotumor cerebri [Chronic].Depression [Chronic].Neurological Disease [Chronic].Intercranial hypertension [Chronic].Pituitary mass [Chronic].GI Disease [Chronic].Diarrhea.Head Injury.Neck Pain.Headache.Sick Contact.Chronic Headache.Migraine Headache.Hydrocephalus.Headache [Intermittent].Cellulitis [Resolved].Diarrhea [Resolved].Wound Dehiscence [Resolved].Skin Rash [Resolved].C. Difficile Colitis [Resolved]. Additional Surgeries:Abdominal surgery to release gas S/P shunt repair.Appendectomy.Cholecystectomy.LP shunt.Lypoma removed from back .Shunts.Tonsillectomy.GLASS FURNACE TENDER Shunt. Medications:Probiotic Daily Oral, daily, last dose [...] 06/09/2019 21:04) Addenda for NIMA DIAZ VisitID: [id number] Date: 06/09/2019 06/16/2019 9:05General follow-up 06/07/2019 COVID-19 test results received by Infection control nurse from [facility].(Electronically signed by Maggie Lancaster R.N. - 06/16/2019 9:05) Name Value Range Interpretation Code Description Data Shelbi rce(s) Supporting Document(s) ID Date Data Source [id number] 06/10/2019 06:25:00 AM [facility] Patient: NIMA DIAZ Observation Re port - Physicians[facility].VisitID: [id number] [place] [address] [phone], [place]idd[place] [facility] Date/Time: 06/09/2019 17:04 Weight:106.1 kg (S). Height/Length:62 inches (S). BMI:42.8 PAST HISTORYProblems:Polycystic ovarian syndrome [Chronic].Abdominal Pain [Chronic].Pseudotumor cerebri [Chronic].Depression [Chronic].Neurological Disease [Chronic].Intercranial hypertension [Chronic].Pituitary mass [Chronic].GI Disease [Chronic].Diarrhea.Head Injury.Neck Pain.Headache.Sick Contact.Chronic Headache.Migraine Headache.Hydrocephalus.Headache [Intermittent].Cellulitis [Resolved].Diarrhea [Resolved].Wound Dehiscence [Resolved].Skin Rash [Resolved].C. Difficile Colitis [Resolved]. Additional Surgeries:Abdominal surgery to release gas S/P shunt repair.Appendectomy.Cholecystectomy.LP shunt.Lypoma removed from back .Shunts.Tonsillectomy.GLASS FURNACE TENDER Shunt. Medications:Probiotic Daily Oral, daily, last dose [...] rce(s) Supporting Document(s) ID Date Data Source [id number] 06/09/2019 07:57:00 PM T [facility] TSYSORDER [id number] Name Value Range Interpretation Code Description Data [facility] rce(s) Supporting Document(s) Campylobacter Not Detected Detected Not [facility] Clostridium difficile toxin AB Not Detected Detected [facility] Due to the high asymptomatic carriage ra adam, especiallyin young children, the clinical relevance of the detectionof toxigenic C. difficile from stool should be consideredin the context of other clinical findings, patient age, andrisk factores which include hospitalization and antibioticexposure. Plesiomonas shigelloides Not Detected Detected [facility] Salmonella Not Detected Detected Not [facility] ospital Vibrio Not Detected Detected Not [facility] spital Vibrio cholerae Not Detected Detected Not [facility] Yersinia enterocolitica Not Detected Detected [facility] Enteroaggregative E. coli Not Detected Detected [facility] Enteropathogenic E. coli Not Detected Detected [facility] Enterotoxigenic E. coli Not Detected Detected [facility] Shiga-like toxin-prod E. coli Not Detected Detected [facility] E. coli O157 Not Detected Detected [facility] Shigella/Enteroinvasive E coli Not Detected Detected [facility] Cryptosporidium Not Detected Detected [facility] Cyclospora cayetanensis Not Detected Detected [facility] Entamoeba histolytica Not Detected Detected Not [facility] Giardia Lamblia Not Detected Detected Not [facility] Adenovirus F 40/41 Not Detected Detected Not [facility] Astrovirus Not Detected Detected Not [facility] ospital Norovirus GI/GII Not Detected Detected Not [facility] Rotavirus A Not Detected Detected Not [facility] Sapovirus Not Detected Detected Not [facility] The Above results have been determined b y using the [employer] FilmArray system.FilmArray is an automated in vitro diagnostic system thatutilizes nested multiplex Polymerase Chain Reaction (PCR)and high-resolution melting analysis to detect and identifymultiple nucleic acid targets from clinical specimens. ID Date Data Source [id number] 06/09/2019 06:56:00 PM EDT [facility] TSYSORDER [id number] Name Value Range Interpretation Code Description Data Shelbi rce(s) Supporting Document(s) GLUCOSE 117 mg/dL 74-106 H [facility] BLOOD UREA NITROGEN 9 mg/dL 7-18 [facility] ital CREATININE 0.8 mg/dL 0.6-1.0 [facility] SODIUM 142 mmol/L 136-145 [facility] POTASSIUM 3.9 mmol/L 3.5-5.1 [facility] CHLORIDE 106 mmol/L 98-107 [facility] CO2 21 mmol/L 21-32 [facility] CALCIUM 8.3 mg/dL 8.5-10.1 L [facility] ANION GAP 15.0 mmol/L 5-12 H [facility] GLOMERULAR FILTRATION RATE 85 mL/min [facility] GFR IS CALCULATED IN mL/min/1.73m2 JESICA L FUNCTION: >90MILDLY DECREASED: 60-89MILDY TO MODERATELY DECREASED: 45-59 MODERATELY TO SEVERELY DECREASED: 30-44SEVERELY DECREASED: 15-29RENAL FAILURE: <15 AST 20 U/L 15-37 [facility] ALT 36 U/L 12-78 [facility] ALKALINE PHOSPHATASE 90 U/L 46-116 [facility] pital TOTAL BILIRUBIN 0.2 mg/dL 0.2-1.0 [facility] TOTAL PROTEIN 7.7 g/dl 6.4-8.2 [facility] ALBUMIN 3.8 gm/dL 3.4-5.0 [facility] ID Date Data Source [id number] 06/09/2019 06:51:00 PM EDT [facility] TSYSORDER [id number] Name Value Range Interpretation Code Description Data Shelbi rce(s) Supporting Document(s) URINE AMPHETAMINES NEGATIVE <1000 ng/mL [facility],URINE NEGATIVE <50 ng/mL [facility] URINE BARBITURATES NEGATIVE <300 ng/mL [facility] ital PCP,URINE NEGATIVE <25 ng/mL [facility] COCAINE, URINE NEGATIVE <300 ng/mL [facility] URINE,OPIATES NEGATIVE <300 ng/mL [facility] URINE,TCA NEGATIVE <1000 ng/mL [facility] IF A NEGATIVE RESULT IS OBTAINED AND ING ESTION OF TRICYCLICANTIDEPRESSANTS IS SUSPECTED, A SERUM SAMPLE SHOULD BEOBTAINED AND TESTED USING AN APPROPRIATE METHOD. URINE BENZODIAZEPINES NEGATIVE <300 ng/mL [facility] ospital THESE TESTS ARE PERFORMED USING AN IMMU NOASSAY FOR THEQUALITATIVE DETERMINATION OF THE PRESENCE OF THE MAJORMETABOLITES OF DRUGS OF ABUSE. THESE TESTS ARE ONLY ASCREENING AND NOT CONFIRMATORY. CLINICAL CONSIDERATION ANDPROFESSIONAL JUDGMENT MUST BE APPLIED TO ANY DRUG OF ABUSETEST RESULT. ID Date Data Source [id number] 06/09/2019 06:47:00 PM EDT [facility] TSYSORDER [id number] Name Value Range Interpretation Code Description Data [facility] Document([facility]) WHITE BLOOD COUNT 12.0 K/mm3 4.0-10.0 H [facility] tuyet RED BLOOD COUNT 4.59 M/mm3 4.00-5.50 [facility] HEMOGLOBIN 14.1 gm/dL 12.0-16.0 [facility] HEMATOCRIT 43.4 % 36.0-48.8 [facility] MEAN CELL VOLUME 94.6 fl 80-96 [facility] MEAN CORPUSCULAR HEMOGLOBIN 30.7 pg 27.0-31.0 [facility] MEAN CORPUSCULAR HGB CONC 32.5 g/dl 32.0-36.0 [facility] RED CELL DISTRIBUTION WIDTH 13.3 % 10.0-14.5 [facility] PLATELET COUNT 380 K/mm3 172-450 [facility] MEAN PLATELET VOLUME 9.5 fl 9.0-13.0 [facility] GRAN % 72.4 % 50-80.0 [facility] IG% 0.3 % 0.0-0.2 H [facility] LYMPH % 19.0 % 25.0-50.0 L [facility] MONO % 6.1 % 2.0-10.0 [facility] EOS % 1.8 % 0-5.0 [facility] BASO % 0.4 % 0.0-2.0 [facility] GRAN # 8.7 K/mm3 2.0-8.00 H [facility] IG# 0.0 K/mm3 0.0-0.2 [facility] LYMPH # 2.3 K/mm3 1.0-5.0 [facility] MONO # 0.7 K/mm3 0.10-1.20 [facility] EOS # 0.2 K/mm3 0.0-0.5 [facility] BASO # 0.1 K/mm3 0.0-0.2 [facility] ID Date Data Source [id number] 06/09/2019 06:35:00 PM EDT [facility] ital TSYSORDER [id number] Entery of ALL Res ults have been RecheckedBy AISHA on 06/09/19 @ 1835. Name Value Range Interpretation Code Description Data Shelbi rce(s) Supporting Document(s) URINE COLOR. YELLOW [facility] URINE APPEARANCE CLEAR [facility] l SPECIFIC GRAVITY,URINE 1.025 1.001-1.035 [facility] URINE LEUKOCYTE ESTERASE NEGATIVE NEGATIVE [facility] URINE NITRATE NEGATIVE NEGATIVE [facility] PH,URINE 7.0 5.0-9.0 [facility] URINE PROTEIN NEGATIVE mg/dL NEGATIVE [facility] GLUCOSE (UA) NEGATIVE mg/dL NEGATIVE [facility] URINE KETONE NEGATIVE mg/dL NEGATIVE [facility] UROBILINOGEN NORMAL(0.2-1) mg/dL 0-1 R [facility] URINE BILIRUBIN NEGATIVE NEGATIVE [facility] URINE BLOOD TRACE NEGATIVE H [facility] ID Date Data Source [id number] 06/09/2019 06:47:00 PM EDT [facility] l TSYSORDER [id number] Entery of ALL Res ults have been RecheckedBy AISHA on 06/09/19 @ 1835. Name Value Range Interpretation Code Description Data Shelbi rce(s) Supporting Document(s) URINE RBC 0-2 /hpf 0-3 [facility] URINE WBC 0-2 /hpf 0-5 H [facility] URINE EPITHELIAL CELLS 1+ /hpf [facility] URINE CALCIUM OXALATE CRYSTALS PRESENT /hpf [facility] URINE BACTERIA 1+ NONE SEEN [facility] URINE MUCUS 1+ NEGATIVE H [facility] ID Date Data Source [id number] 06/07/2019 05:43:00 PM EDT [facility] Name Value Range Interpretation Code Description Data Shelbi rce(s) Supporting Document(s) SARS CORONAVIRUS 2 RNA [facility] This lab was ordered by [facility] and reported by [facility]. ID Date Data Source [id number] 06/03/2019 12:15:00 PM EDT [facility] Name Value Range Interpretation Code Description Data Shelbi rce(s) Supporting Document(s) SARS CORONAVIRUS 2 RNA [facility] This lab was ordered by [facility] Laboratory and reported by [facility]. ID Date Data Source [id number] 04/15/2019 02:14:45 PM EST [facility] Name Value Range Interpretation Code Description Data Shelbi rce(s) Supporting Document(s) ED Provider Note [facility] [id number]/NJBhpEJCpq6KyFVrqWZg7WAwkCUDqC0DfUEN2bY5dWLY1GHxIYoAkMcQcPzFg lbm [file] vp business development/Ly0lB6u7rj4R7Ih+7sE4DTHNZGmu8j/2G+rw+8lQud2nUdaQqGstKds4M178xQ/HQ6IzqlHZYCak2 [file] YNCg== ID Date Data Source [id number] 04/15/2019 06:40:22 AM EST [facility] Name Value Range Interpretation Code Description Data Shelbi rce(s) Supporting Document(s) ED Provider Note [facility] LEOHPv6uMhMRSzDf40/WLCxgLVSfq8UfXHmyITb0ZUspNTLlB8RjLUR3dB4cIYI8SXyOYkHwNaPeAkEl lbm [file] FRXgKFNupKZfSIp4H02tjFQfVKmcJE6AXWZ+Tiffany+Pg 9AUBIhFEXpMZBlKuClMWDAZxDwZ6DiS0JIr8SnV9AjIU81gLcnqvOjYCrkFC7EZM5eOZWcSJUZKK3AwD MemK0fbfJ7UoZcDGGNBzQqK41asZHdHIJqNOe9TJQoQc0MJEYyH9AbflUjvVyzjmLoVJIbKUDNAP7UEU yjcgZouSVrpTrlSB59cPlvPC9SGs8HSvUbDB3gtt3A nUNuIs4COMS0PV7PXWZxMLQwWISqPRM8RJWfPhQrORpqKPLkTRZgLJI1ZAJxVBZvUK1KMfEyZFRqTDs1 QOGkKUTiDSOvtr0VEOHyVJFuDPl0IwKiWJDaNDDlSXyyYJGnPKFjYVW2ZSNvKUYoWG7HMzMvSNSkWIDp RIFxKZZtLKHbim7EFWKyNENwPTSaPJTsCZXrGYOaUJ nxVFUdPAO1ZnKkDBAmJJDhKN9JVmVxUBXbCVv5ZxyjLJXjGXTiol0BCXPdNBXbNMYfTkQnYQTtWKZfDM rlUOFsDSDnDwR8CELzPPLkEO9PToSuNUJtBNI2JDguKLNcOZHrlr7WMHAaLNYgMbHuHSDpQZIzTFAsKM muAYEwBTM8WiH0OSTvKJWrXF3KNjIpDISeEJH7CLEy BLRmIDZtlv5AJVPdSLCaLID6UDIaPBZbTHCjLIqtHETbISDsMfXiKGVrBKEnNB3WCmPhGPCzYwVoJHOj MNXvTMHnew0YALXcZGTmPuF1PEAhNJHvLVLgQKnyPKBaROL6HikgFMJkFUWzNX7FDkZfGYRsFrq6Nnlu YXSfKJJklt3AAXZoDSLlXBMvLLFwXUDzSEMzONixAF AbWWJnLECgIRMtYPSnLO2AVpPnKJCrLzT7OaVfPXYkRESuot8HNRSiAYQtGiegTfWxOSSuDUJmIVcnMY GmXJF5TGdwTCXaBPWlIV7PWhTmJMUxRrHxNGnwDPAbSVVarb7ABPCzLKCvIXx5GGMqPDGqSPKgAMrgXW YbIBD9KCn7NRFtGYYwVA9FZwNrXNSwEPR7SQMcMCKs SVRfny8FNVUnPFDdKUQ4MqOjJBZjSGHkUZvjXMJkSGTgECY7LACpWQDdEY7YXnFoEHEeVRE6OXXzSLKa NZRsab2BNGXdEMG5TcbgWPOtGVCiMMMxGRejZLOmKNZ8DbGyTLStAYBtBZ8QCzMsYNYzNIw9NHDzZPAd DTOtiy6SPPFnXEC4QtEeYYTvBTGdFOSlIPnpGNXjJD ZcKyU4WPGkBRTgFF8UYpXyTWWkJNWpLlYoTAYkFLGgab6GRWJkZKQ9OCB4YfAmRXNtTASnWRinXPAxSP G1LNSwCBRrTWNjKT7HUvOlOXCgKMt1TfnyNKFdMCKsvv5PDKNnEHW6UkLqZxBnQVYeANSfFVwlDWOzUM TpChL4ICSrQTVqKI5KTqLsOVCsHkZsQpVdCGMpOFFw fj0GSLDxLLU0UYF2VAXzHKSsHWDhZXimOAZzZRX3Vyk7KNIvQJIqZC0ZKrGfAJKnEbh8IJMaUBKlUSZi zf4XMYEwUPV6KSF7UELuEHItCJBsSZhiNBGwLOQ8QxM3ODOwGFVzSN6BFrLqWYNjEvK1ZyTkFKBsLWIs nf9YKFCeXWV6CZl2IzIjMWHyLWSaSQnaZKHfFHkzZY K6XZHmUKVtYP2JWtPfQPPqMqMbMPQwLQDtKPPsec6GXLDrKMU5AoFeJrPsVRAfRGVyHHruCOWtFNtiQt f5MOTcICLjZB0FAsSnQOXhSqHmFKQfCURdWLCmrf3LGKWvCWM9LpV4QBLxBRCeJGGqHNprWTXqHDnvSd H9FSYjXDUrUI7BZlJrZREnKFQfDWsdHTMtYMUgma2N MOXwECF3EEGsJgOcTCQgCJNxPBmfGSLcTVt9IsE1OPTsCKChFX1NDrVeOWHgYMT2SAUjSQLzVGShxv8W EZPzMNX1LtFsYBQnRZPqDHHvQTibETRoGKs9LMa6YVYhXFNjQU4KDzEfRHCiSGfzIzWmISNtGKQasl9I YQYsFEZ0FjL5NQCvLDLwBYIjLZhnHUDvUAm8DaneGP AwOMKkEV0NRiDeCXUbVRz5IxHbYLJdQNEltx7GIGCyIUE2DFR6GWMyFRToSZWgJIwkKVAvKIu3ETseDA YjWCDrCO1PSpEnNEIgTGv3SJDtXJVlPFPshb4IWUTyVNO9TOq1KUGcUCSwZIKmTDgdCKSqYRhlAff8KE XlTTAaHE5THaBwXDHqLBz0GzQrHGRgGFHwqk7IXUAo QXGcFEArRuCoMKQjRITrYIieSTYdRKWkSOQdJKMjCNZvZT6TAmJaOYQoLqEvCoPsERIzLBIpsz4FTJZa QFMyRAM5QRYpRTEnVEZbCTchNNIrDWUeXkw5ERIoIFBtJQ1NPbPiRHQxUhG6DzheOIJcULIsbw9YAQSb EMHzLDn9HaTkAZBaBZFnUCwuHBKkPKRfQHC6WHRpPA CuIN2IInRuPBFmPgFdLTteADPxQDNjyp6BpWKzcXavak4RDNjISi7LxSyjASs3XOhgEu4txWA9LgPkPQ QWTn1LzvRmUYRkCIIPJTzdWNTqDWK9KLY6FdSrWshpYcGpFnZ8WIruETu2KKB1DUR2UAGbVgH8LsxhTL nbE0M3KEJsJkF8HcRmLWQgCpq9HQc6VzU0ZnC+IF0g DQo+Xe3Ol8NwhrL0nlShEZogIwZ1BHHKVqFeRG3RZQi= ID Date Data Source [id number] 04/12/2019 07:48:00 PM EST [facility] 1 OrderSheet [facility] Emergency Department [address] [place] [address] Phone #: ext- [phone] 04/12/2019 19:30 Patient: [...] RN PA;Blood Culture STAT 20:47 04/12/2019 21:23 Lwpocrg46e X2 (Keyur Araujo RN20:47 04/12/2019) PA;Blood Culture STAT 20:47 04/12/2019 21:28 Haagonf53f X2 (Keyur Araujo RN20:57 04/12/2019) PA;DIAGNOSTIC STUDY ORDERSOrder Description Priority Entered Acknowledged Initialed 2 OrderSheet [facility] Emergency Department [address] [place] [address] Phone #: ext- [phone] 04/12/2019 19:30 Patient: NIMA DIAZ Sex: F [...] Aditya BALBUENA PA;Metoclopramide PO 21:08 04/12/2019 21:24 Pwtvzj95 mg Aditya Araujo RN PA;Benadryl PO 50 [...] rce(s) Supporting Document(s) ID Date Data Source [id number] 04/12/2019 07:48:00 PM EST [facility] 1 Medication Reconciliation Report [facility] Emergency Department [address] [place] [address] Phone #: ext- [phone] 04/12/2019 19:30 Patient: [...] tabs at night 2 Medication Reconciliation Report [facility] Emergency Department [address] [place] [address] Phone #: ext- [phone] 04/12/2019 19:30 Patient: NIMA DIAZ Sex: F [...] Dispense 1pack. Refills: 0. Substitution permitted.Pharmacy - [facility] [id number] ; [place] [address]. . -- SREE Martinez Name Value Range Interpretation Code Description Data Shelbi rce(s) Supporting Document(s) ID Date Data Source [id number] 04/12/2019 07:48:00 PM EST [facility] 1 Medication Administration Record [facility] Emergency Department [address] [place] [address] Phone #: ext- [phone] 04/12/2019 19:30 Patient: [...] rce(s) Supporting Document(s) ID Date Data Source [id number] 04/12/2019 07:48:00 PM EST [facility] 1 General Instructions [facility] Emergency Department [address] [place] [address] Phone #: ext- [phone] 04/12/2019 19:30 Patient: NIMA DIAZ Sex: F : 1990 Age: 28yChronic neck pain. ([employer] Shunt).INSTRUCTIONS(You may take 1000mg of Tylenol 4 [...] Dispense 1pack. Refills: 0. Substitution permitted.Pharmacy - [facility] [id number] ; [place] [address]. .Follow-up:Follow up with your doctor Sunday. Call for an appointment. Reason for referral: evaluation and treatment.Summary of care provided to patient.Understanding of the discharge instructions verbalized by patient and family. 2 General Instructions [facility] Emergency Department [address] [place] [address] Phone #: ext- [phone] 04/12/2019 19:30 Patient: NIMA DIAZ Sex: F [...] of the spinal canal. 3 General Instructions [facility] Emergency Department [address] [place] [address] Phone #: ext- [phone] 04/12/2019 19:30 Patient: NIMA DIAZ Sex: F [...] delay the healing process. You may use fbol-pbe-kvfjcpc pain medicine to control pain, unless another [...] any new findings that may affectyour care.Call [phone] if you have: Sudden weakness or numbness in one or both arms Neck swelling, difficulty or painful swallowing Difficulty breathing Chest pain 4 General Instructions [facility] Emergency Department [address] [place] [address] Phone #: [phone] whh- [phone] 04/12/2019 19:30 Patient: NIMA DIAZ Sex: F : 1990 Age: 28yWhen to seek medical adviceCall your healthcare provider right away if any of these occur: Pain becomes worse or spreads into one or both arm Increasing headache Fever of 100.4F (38C) or higher, or as directed by your healthcare provider [phone] [employer]. [address] [place] [address]. All rights reserved. This information is not intended as asubstitute for professional medical care. Always follow your healthcare professional's instructions. You have been given the following additional information: Neck Pain(Electronically signed by SREE Martinez 04/12/2019 23:26) Name Value Range Interpretation Code Description Data Shelbi rce(s) Supporting Document(s) ID Date Data Source [id number] 04/12/2019 07:48:00 PM EST [facility] 1 Clinical Report - Nurses [facility] Emergency Department [address] [place] [address] Phone #: ext- [phone] 04/12/2019 19:30 Patient: NIMA DIAZ Sex: F : 1990 Age: 28yTRIAGEArrived by private vehicle. Historian: patient. Accompanied by family.Triage time: 19:40 04/12/2019. Acuity: LEVEL 4.Chief Complaint: (left sided head pain).This is a recurrent problem. Symptoms are constant and still present (1 weeks ago). ( [facility] work showed signs of infection and they didnt feel comfortabletapping shunt and recommended follow up at [facility] which is on 04/24/19. states that she isbasically here for pain control.). The patient has had measured temperature of 101.7 F orally.SEPSIS SCREEN: NEGATIVE. --19:48 04/12/19 Zeeshan Araujo RN19:39 04/12/19. BP: 117/85 (regular adult cuff) taken on the left arm, via an automated monitor, whilesitting. MAP: 95. HR: 97 (regular, normal rate and strong). RR: 16 (regular, unlabored and normal). M1hoqacmwtlu: 100% on room air. Temp: 98.5 F (oral). Pain level now: 11/12. --19:48 04/12/19 Zeeshan Araujo RNTreatment FLORICULTURE TEACHER:Took Tylenol. --19:50 04/12/19 Zeeshan Araujo RN.Weight: 107.9 [...] --19:49 04/12/19 2 Clinical Report - Nurses [facility] Emergency Department [address] [place] [address] Phone #: ext- [phone] 04/12/2019 19:30 Patient: [...] acute distress. 3 Clinical Report - Nurses [facility] Emergency Department [address] [place] [address] Phone #: ext- [phone] 04/12/2019 19:30 [id number] Sex[facility] F : 1990 Age: 28y HEENT: [...] allergic reaction and precautions. Verbalizes understanding. --04/12/19 Zeesahn Araujo RN Checked patient name and birthdate: [...] Patient verbalized understanding. Written instructions provided in Cypriot. The patient was discharged home and accompanied by spouse. She left ambulatory and via private vehicle. Spouse driving. --23:04/12/19 Zeeshan Araujo RN 23:00 04/12/19. BP: 122/78 (regular adult cuff) taken on the left arm, via an automated monitor, while 4 Clinical Report - Nurses [facility] Emergency Department [address] [place] [address] Phone #: ext- [phone] 04/12/2019 19:30 Patient: NIMA DIAZ Sex: F [...] rce(s) Supporting Document(s) ID Date Data Source [id number] 04/12/2019 07:48:00 PM EST [facility] 1 Clinical Report - Physicians/Mid Levels [facility] Emergency Department [address] [place] [address] Phone #: ext- [phone] 04/12/2019 19:30 Patient: NIMA DIAZ Sex: F : 1990 Age: 28y Time Seen: 20:10 04/12/2019. Arrived- By private vehicle. Historian- patient.HISTORY OF PRESENT ILLNESS Chief Complaint: NAUSEA, VOMITING, DIARRHEA and HEADACHE. ABNORMAL LAB. This started 1 weeks ago; Pt was seen at [facility] last Sunday then was notified by [facility] last Sunday that blood work showed signs of infection and they didnt feel comfortable tapping shunt and recommended follow up at [facility] which is on 04/24/19. H carmen states [...] 1500. 2 Clinical Report - Physicians/Mid Levels [facility] Emergency Department [address] [place] [address] Phone #: ext- [phone] 04/12/2019 19:30 Patient: NIMA DIAZ Sex: F [...] COUNT 3 Clinical Report - Physicians/Mid Levels [facility] Emergency Department [address] [place] [address] Phone #: ext- [phone] 04/12/2019 19:30 Patient: NIMA DIAZ Sex: F [...] Male GFR Interprentation 20-49 yrs >60 mL/min Sstnov07-42 yrs >56 mL/min Normal 60-69 yrs >49 mL/min Normal 70-79yrs>42 mL/min Normal 80 and above >35 mL/min Normal Female GFRInterpretation 20-39 yrs >60 mL/min Normal 40-49 yrs >58 mL/minNormal 50-59 yrs >51 mL/min Normal 60-69 yrs >45 mL/min Gabqgv95-29 yrs >39 mL/min Normal 80 and above >32 mL/min NormalLipase: (SOPHY: 04/12/2019 20:39) ( MsgRcvd 04/12/2019 21:26) Final results Test Result Flag Units (Reference) LIPASE 32 U/L (13 - 60)Urinalysis: (SOPHY: 04/12/2019 19:50) ( MsgRcvd 04/12/2019 20:54) Final results Test Result Flag Units (Reference) 4 Clinical Report - Physicians/Mid Levels [facility] Emergency Department [address] [place] [address] Phone #: ext- [phone] 04/12/2019 19:30 Patient: [...] PROCEDURAL CONTROL VALID ){ KIT LOT # [id number] ){ KIT EXP DATE 05/01/20 )The Strep [...] [facility] is advised to follow [...] 2019). 5 Clinical Report - Physicians/Mid Levels [facility] Emergency Department [address] [place] [address] Phone #: ext- [phone] 04/12/2019 19:30 Patient: NIMA DIAZ Sex: F : 1990 Age: 28yCLINICAL IMPRESSION Chronic neck pain. 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 Refills: 0. Substitution permitted. Pharmacy - [facility] [phone] ; [place] [address]. . Follow-up: Follow up with your doctor Sunday. Call for an appointment. Reason for referral: evaluation and treatment. Summary of care provided to patient. Understanding of the discharge instructions verbalized by patient and family. 6 Clinical Report - Physicians/Mid Levels [facility] Emergency Department [address] [place] [address] Phone #: ext- [phone] 04/12/2019 19:30 Patient: NIMA DIAZ Sex: F : 0 1990 Age: 28y(Electronically signed by SREE Martinez 04/12/2019 23:26) Name Value Range Interpretation Code Description Data Shelbi rce(s) Supporting Document(s) ID Date Data Source [id number] 04/12/2019 09:36:00 PM [facility] Name Value Range Interpretation Code Description Data [facility] rce(s) Supporting Document(s) RAPID STREP NEGATIVE NORMAL: NEGATIVE [facility] RAPID STREP REENTER NEGATIVE NORMAL: NEGATIVE [facility] { PROCEDURAL CONTROL VALID ){ KIT LOT # [id number] ){ KIT EXP DATE 05/01/20 )The Strep [...] basis for treatment. ID Date Data Source [id number] 04/19/2019 02:13:00 PM [facility] Name Value Range Interpretation Code Description Data Shelbi rce(s) Supporting Document(s) CULTURE BLOOD [facility] Ho spital _CULTURE BLOOD_ TEST PERFORM ED AT [address] [address] CLIA# [id number] SEE SCANNED REPORT{ PRELIM ID Date Data Source [id number] 04/18/2019 10:34:00 AM EST [facility] [address] Name Value Range Interpretation Code Description Data Shelbi rce(s) Supporting Document(s) Bacteria identified in Blood by Culture [facility] NO GROWTH AFTER 5 DAYS ID Date Data Source [id number] 04/19/2019 02:13:00 PM [facility] Value Range Interpretation Code Description Data Shelbi rce(s) Supporting Document(s) CULTURE BLOOD [facility] spital _CULTURE BLOOD_ TEST PERFORM ED AT [address] [address] CLIA# [id number] SEE SCANNED REPORT{ PRELIM ID Date Data Source [id number] 04/12/2019 09:29:00 PM [facility] Value Range Interpretation Code Description Data Shelbi rce(s) Supporting Document(s) Influenza virus A Ag [Presence] in Nasopharynx by Immunoassa y NEGATIVE NORMAL: NEGATIVE [facility] Influenza virus B Ag [Presence] in Nasopharynx by Immunoassa y NEGATIVE NORMAL: NEGATIVE [facility] NEGATIVENEGATIVE PROCEDURAL CO NTROL VALID KIT LOT [...] other patient managementdecisions. ID Date Data Source [id number] 04/12/2019 09:26:00 PM [facility] Value Range Interpretation Code Description Data Shelbi rce(s) Supporting Document(s) Lipase [Enzymatic activity/volume] in Serum or Plasma 32 U/L 13 - 60 [facility] ID Date Data Source [id number] 04/12/2019 09:26:00 PM EST [facility] Name Value Range Interpretation Code Description Data Shelbi rce(s) Supporting Document(s) COMPREHENSIVE METABOLIC PANEL [facility] COMPREHENSIVE METABOLIC PANEL Sodium [Moles/volume] in Serum or Plasma 139 mEq/L 134 - 153 [facility] Potassium [Moles/volume] in Serum or Plasma 4.6 mEq/L 3.6 - 5.0 [facility] Chloride [Moles/volume] in Serum or Plasma 100 mEq/L 98 - 107 [facility] Carbon dioxide, total [Moles/volume] in Serum or Plasma 29 MEQ/L 22 - 30 [facility] Glucose [Mass/volume] in Serum or Plasma 92 MG/DL 65 - 110 [facility] BUN 10 MG/DL 7 - 21 [facility] al Creatinine [Mass/volume] in Serum or Plasma 0.6 MG/DL 0.7 - 1.5 L [facility] BUN/CREAT 17 8 - 27 [facility] al Protein [Mass/volume] in Serum or Plasma 7.5 G/DL 6.3 - 8.2 [facility] Albumin [Mass/volume] in Serum or Plasma 4.9 G/DL 3.9 - 5.0 [facility] Globulin [Mass/volume] in Serum by calculation 2.6 GM/DL 2.4 - 3.2 [facility] A/G RATIO 1.9 0.8 - 2.0 [facility] Calcium [Mass/volume] in Serum or Plasma 10.1 MG/DL 8.4 - 10.2 [facility] Bilirubin.total [Mass/volume] in Serum or Plasma <0.7 MG/DL 0.2 - 1.3 [facility] Alkaline phosphatase [Enzymatic activity/volume] in Serum or Plasma 81 U/L 38 - 126 [facility] Aspartate aminotransferase [Enzymatic activity/volume] in Serum or Plasma 27 U/L 5 - 40 [facility] Alanine aminotransferase [Enzymatic activity/volume] in Seru m or Plasma 53 U/L 7 - 56 [facility] Anion gap 3 in Serum or Plasma 10.0 mmol/L 8.0 - 16.0 [facility] AGE 28 yrs [facility] NON-AA GFR >60 mL/min [facility] ital AFR AMER GFR >60 mL/min [facility] spital Male GFR In terprentation 20-49 [...] >32 mL/min Normal ID Date Data Source [id number] 04/12/2019 09:17:00 PM [facility] Name Value Range Interpretation Code Description Data Shelbi rce(s) Supporting Document(s) Lactate [Moles/volume] in Serum or Plasma 1.7 MMOL/L 0.2 - 2.2 [facility] ID Date Data Source [id number] 04/12/2019 09:09:00 PM [facility] Name Value Range Interpretation Code Description Data Shelbi rce(s) Supporting Document(s) CBC W/AUTOMATED DIFF [facility] COMPLETE BLOOD COUNT Leukocytes [#/volume] in Blood by Automated count 8.5 10^3/uL 4.2 - 1 1.0 [facility] Erythrocytes [#/volume] in Blood by Automated count 4.87 10^6/uL 4. 20 - 5.40 [facility] Hemoglobin [Mass/volume] in Blood 14.3 g/dL 12.0 - 16.0 [facility] Hematocrit [Volume Fraction] of Blood by Automated count 44.9 % 3 7.0 - 47.0 [facility] Erythrocyte mean corpuscular volume [Entitic volume] by Auto mated count 92.2 fL 81.0 - 101 [facility] Erythrocyte mean corpuscular hemoglobin [Entitic mass] by Automated count 29.4 pg 27.0 - 34.0 [facility] Erythrocyte mean corpuscular hemoglobin concentration [Mass/volume] by Automated count 31.8 g/dL 31.0 - 36.0 [facility] Erythrocyte distribution width [Ratio] by Automated count 13.5 % 11.5 - 14.5 [facility] Platelets [#/volume] in Blood by Automated count 381 10^3/uL 150 - 45 0 [facility] Platelet mean volume [Entitic volume] in Blood by Automated count 9.5 fL 7.4 - 10.4 [facility] Neutrophils/100 leukocytes in Blood by Automated count 57.8 % 37. 0 - 80.0 [facility] Lymphocytes/100 leukocytes in Blood by Manual count 30.5 % 25.0 - 40.0 [facility] Monocytes/100 leukocytes in Blood by Automated count 7.4 % 3.0 - 8.0 [facility] Eosinophils/100 leukocytes in Blood by Automated count 3.3 % 0.0 - 7.0 [facility] Basophils/100 leukocytes in Blood by Automated count 0.6 % 0.0 - 2.5 [facility] %IG 0.4 % 0.0 - 0.0 [facility] %NRBC 0.0 % 0.0 - 0.0 [facility] al Neutrophils [#/volume] in Blood by Automated count 4.90 10^3/uL 2.00 - 6.90 [facility] Lymphocytes [#/volume] in Blood by Automated count 2.59 10^3/uL 0.60 - 3.40 [facility] Monocytes [#/volume] in Blood by Automated count 0.63 10^3/uL 0.00 - 0.90 [facility] Eosinophils [#/volume] in Blood by Automated count 0.28 10^3/uL 0.00 - 0.70 [facility] Basophils [#/volume] in Blood by Automated count 0.05 10^3/uL 0.00 - 0.20 [facility] #IG 0.03 10^3/uL 0.00 - 0.10 [facility] ospital #NRBC 0.00 10^3/uL 0.00 - 0.00 [facility] ospital MANUAL DIFF NOT INDICATED [facility] RBC MORPH NOT INDICATED [facility] ID Date Data Source [id number] 04/12/2019 08:54:00 PM [facility] Name Value Range Interpretation Code Description Data Shelbi rce(s) Supporting Document(s) URINALYSIS [facility] Hos[facility] tuyet URINALYSIS SOURCE Clean Catch [facility] COLOR yellow NORMAL: Yellow [facility] CLARITY clear NORMAL: Clear [facility] Specific gravity of Urine by Test strip 1.025 1.001 - 1.030 [facility] pH 5 5 - 9 [facility] Glucose [Mass/volume] in Urine by Test strip NORM NORMAL: Negat [facility] Bilirubin.total [Presence] in Urine by Test strip NEG NORMAL: Negative [facility] Ketones [Presence] in Urine by Test strip 5 NORMAL: Negative A [facility] Protein [Mass/volume] in Urine by Test strip 15 NORMAL: Negat [facility] Nitrite [Presence] in Urine by Test strip NEG NORMAL: Negative [facility] BLOOD NEG NORMAL: Negative [facility] Leukocyte esterase [Presence] in Urine by Test strip NEG JESICA L: Negative [facility] Urobilinogen [Mass/volume] in Urine by Test strip NOR less melvi n 1.0 mg/dL [facility] MICROSCOPIC Not Indicate [facility] ID Date Data Source [id number] 04/09/2019 02:08:00 PM EST [facility] Patient: NIMA DIAZ Observation Re port - Physicians/Mid Levels [facility], [facility].VisitID: [id number] [place] [address] [phone], FRegistration Date/Time: 04/07/2019 17:33 Weight:90.7 kg (E). Height/Length:65 inches (E). 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 Additional Surgeries:Abdominal surgery to release gas S/P shunt repair.Appendectomy.Cholecystectomy.LP shunt.Lypoma removed from back .Shunts.Tonsillectomy.GLASS FURNACE TENDER Shunt. Medications:PROzac Oral (Capsule 40 mg) 1 [...] gas S/P shunt repair.Appendectomy.Cholecystectomy.Lypoma removed from back .Shunts.Tonsillectomy.GLASS FURNACE TENDER Shunt. Medications:PROzac Oral (Capsule 40 mg) 1 [...] rce(s) Supporting Document(s) ID Date Data Source [id number] 04/08/2019 03:04:01 PM [facility] Name Value Range Interpretation Code Description Data [facility] rce(s) Supporting Document(s) [facility] DFCCQz4fXiIPCbPh40/DXWzwEUMwp7KuZQpsAYr2IPxvDXQzF1GsVPE2gZ0yTNV8KUjEZbDzInApHtY4 [facility] [file] AgICAgICAgICAgICAgICAgICAgICAgICAgICAgICAg ICAgICAgICAgICAgICAgICAgICAgICAgICAgICAgICAgICAgICAgICAgICAgICAgICANCiAgICAgICAg ICAgICAgICAgICAgICAgICAgICAgICAgICAgICAgICAgICAgICAgICAgICAgICAgICAgICAgICAgICAg ICAgICAgICAgICAgICAgICAgICAgICAgICAgICAgIC ANCiAgICAgICAgICAgICAgICAgICAgICAgICAgICAgICAgICAgICAgICAgICAgICAgICAgICAgICAgIC AgICAgICAgICAgICAgICAgICAgICAgICAgICAgICAgICAgICAgICAgICANCiAgICAgICAgICAgICAgIC AgICAgICAgICAgICAgICAgICAgICAgICAgICAgICAg ICAgICAgICAgICAgICAgICAgICAgICAgICAgICAgICAgICAgICAgICAgICAgICAgICAgICANCiAgICAg ICAgICAgICAgICAgICAgICAgICAgICAgICAgICAgICAgICAgICAgICAgICAgICAgICAgICAgICAgICAg ICAgICAgICAgICAgICAgICAgICAgICAgICAgICAgIC AgICANCiAgICAgICAgICAgICAgICAgICAgICAgICAgICAgICAgICAgICAgICAgICAgICAgICAgICAgIC AgICAgICAgICAgICAgICAgICAgICAgICAgICAgICAgICAgICAgICAgICAgICANCiAgICAgICAgICAgIC AgICAgICAgICAgICAgICAgICAgICAgICAgICAgICAg ICAgICAgICAgICAgICAgICAgICAgICAgICAgICAgICAgICAgICAgICAgICAgICAgICAgICAgICANCiAg ICAgICAgICAgICAgICAgICAgICAgICAgICAgICAgICAgICAgICAgICAgICAgICAgICAgICAgICAgICAg ICAgICAgICAgICAgICAgICAgICAgICAgICAgICAgIC AgICAgICANCiAgICAgICAgICAgICAgICAgICAgICAgICAgICAgICAgICAgICAgICAgICAgICAgICAgIC AgICAgICAgICAgICAgICAgICAgICAgICAgICAgICAgICAgICAgICAgICAgICAgICANCiAgICAgICAgIC AgICAgICAgICAgICAgICAgICAgICAgICAgICAgICAg ICAgICAgICAgICAgICAgICAgICAgICAgICAgICAgICAgICAgICAgICAgICAgICAgICAgICAgICAgICAN Cjw/yUIsN8ibgKHqojB4N4amNf4HDb2WAX4ue6OcFSUsASwzagHlLciXBcGpQEYtZvyOYue8ODsyZD8I pRCuD8ZfI1TuNGkjFE0OJHIrBJMwhKTfXZFtOVWwLv I0GREsXAzgEN6XxZEsWBguYXFvZPCpPoUiLAFtPFFvJRQzFHCcDINNVYSbYJOsBhMvAPpgOZ2Dl7ZiuX A1DQo+Lo0BVU6bj5AlZLkuNVWzTO1mek3NFMtWZjNzR0JvloE4CGO9SQZdJg8YCRFcZPAifAVlRgUoAR IDJoJeA2GioP59QPBTAf7+GSzaucIiXvaNCgP5TYLm x0JiKAc3ZW1BUKRfOPa1tEQuP74ul6ZpgSZkCvndK7InbflaHRngJ012wAPlcODsduabBC1pMBIgHr56 NvQrHkCrPGT2SkNkJY5vQOynDQ9OVXZ7HApuMTMgZXBzF6mPOqYtPKLsXBZszArsHD6JIwSsF3RrhhWm dCAzNSAwIFINCj4+BZuizkWlUwpNExD1ZQHis3GjKG j8AI9VSGTmLHssIJ2YKSWhvQ3bLVdhQH2VZlGoGgAsBIIHCpOvX59fuHVbQBn6K8TjNnCpMBWqOxsqMI MgPDwvTmFtZXMgWyBdDQogID4+ID4+BHoyPP1JQVbevuZgDZLnGh7VGEViKCSyGG1iUDEgVTXnL6R1aA mdHOXDZwBzN9sqlwuwFK7pCVBbP047pUdnpeGyHLR1 YZFmCo7HJXIxLHD8CPNwhALgFmFxGGHGALgiXH5PcAVlSTW0eC7tGBdqTJAsYVXmO7aLPeIaxYkuPA93 bGwgbnVsbCBdDQo+Ma3YWN3rn3DyTNc3hlGzKNtqYAC7IBhaOKXyNHWsYBLrVEC1WSE4KPDNMuVsLEKf SPXvXYymHUFuLNDnak2BALGmHEW3Cio3WtQpZHXzCQ GeMOxhFLMaZUU0SGKtXKKtUVLxEB9MDwGxDOToOHOeCQpqNFJfFTVisp8XOKOmOEJtXlC2ReQkFJVrTA LqAVdaIDUuMOKgJkV4MZWfWWFmWP6UUjPfWWDcSOV8SVXuOVOhSKRhsc6LVCSgOAZyVgByQkYtDBIpVS MxVUbnNADdELN8VSE5CXJgXPTlSX5KVkHhGKEhPEg8 EXXaBEPxXPGfde4NSJXmNNZqOKbjLPQlIKSpBTNoIBlyNYYcMZCxADA8HOPpDUVeUR3FSkGvVRTcBEQ9 XIBcWWIsSDNzey0HVQMzPGRaGIM1KrNyGVAxQVMvMIbmXHDlADL3AVJbLYAoZULkPK0BBnVsIUQyUNHp NFtfMGTnESFtop8IMBGfHZEqPPLvSgNoVHKlUWZhSJ gzWPKbSYI5HwKaXFAmGKKhXG1RAhWeNXEhTCB8MvBxRSPjWLAhwq5PYRKyNTSjFfe6FCQqOBNnXUVmJX peWQFxHCH6HqGgYLOgWJKeQZ1WQlTpTNKvJXx2JNhtQVWfBSRzao9ZXUJvKQJrDUP5EWGzTQWcTSDuCA cqLZIpAED4APv2BHViUESbTL9JAvYeIHJqCjk4YMXr JULcPSJikb5SPRRxPCUhXELeVmMkDRKoVQGsKRkiWHXwHHArHbEnQXYwGKDhQN4UTlYtDHOnJuMuDWty GMWtAFAlrw7LLIFrMYVvMSRsHeXcAQAmNYPxXXckENSbWJOnROIqWGPyFUHqBB4XCeCcTTZcJnF8XRun LNNaCHYeec6ERKYvKOChMEm5CeYeEFMcCPApKUydUX RzZJUpMbPxJJHdTYIcAH1ZYcMmMKIyCNKnVIGnHKTvXJIzfi1XYCFiWRU6RYV3UuTbEWClGFWdSLnjBZ JmVUF8GqY9POUoYPPfTL7GTeBoXMHfOLP8XDLrCKDuKKLrvm9KiHVbhAuaoi3MVAxCFb1AwMkyRFG9HV yvRd7zyLQeFeJuTJYLSx0WffHgSRPtXDIMXDbwXAGl DCQ4X1ZqDgy0UIEhSvLyVwPqZodzKkHjHzS5DzpaMMK7JhV1NRwcSdUyLMu9OPByEeIaLgY7MaT6RmV8 DAe7JZFiSFk+AK4gGEx+Rc9Xy1AcljJ7jlUsADe8JsObMJ5STEGXO5CEEd== ID Date Data Source [id number] 04/08/2019 08:09:42 AM [facility] Name Value Range Interpretation Code Description Data Shelbi rce(s) Supporting Document(s) Color of Urine [facility] Clarity of Urine [facility] Specific gravity of Urine by Refractometry automated 1.042 1.003 -1.030 H [facility] pH of Urine by Automated test strip 6.0 5.0-8.0 [facility] Protein [Mass/volume] in Urine by Automated test strip Neg [facility] Glucose [Mass/volume] in Urine by Automated test strip Neg [facility] Ketones [Mass/volume] in Urine by Automated test strip 5 mg/dL Neg [facility] Bilirubin.total [Presence] in Urine by Automated test strip Negative [facility] Hemoglobin [Presence] in Urine by Automated test strip Neg [facility] Leukocyte esterase [Presence] in Urine by Automated test strip Negative [facility] Nitrite [Presence] in Urine by Automated test strip Negati [facility] Leukocytes [#/area] in Urine sediment by Automated count 0 /HPF 0 -5 [facility] Erythrocytes [#/area] in Urine sediment by Automated count 0-3 [facility] Bacteria [#/area] in Urine sediment by Automated count Non e A [facility] Epithelial cells.squamous [#/area] in Urine sediment by Auto mated count 2 /HPF None [facility] ID Date Data Source [id number] 04/08/2019 09:35:24 AM [facility] Service Cmnt XXX-Imp : Microorganism [...] rce(s) Supporting Document(s) ID Date Data Source [id number] 04/08/2019 06:48:01 AM [facility] CT ABDOMEN PELVIS WITH CONTRAST [id number] AL RESULTInterpreted by:Kamila Renner MDPROCEDURE INFORMATION: Exam: CT Abdomen And Pelvis With Contrast Exam date and time: 04/08/2019 5:32 AM Age: 28 years old Clinical indication: Other: Evaluate for left vp business development shunt abnormality. Severe URIAS, luq abd pain, [...] Tubes, catheters and devices: Partially seen bilateral GLASS FURNACE TENDER shunt tubing components are present. Liver: Fatty [...] could be related to the presence of GLASS FURNACE TENDER shunt tubing, and physiologic. Clinical correlation recommended. THIS DOCUMENT HAS BEEN ELECTRONICALLY SIGNED BY KAMILA RENNER MDThis document has been electronically signed by Kamila Renner MD on 04/08/2019 6:47 AM Name Value Range Interpretation Code Description Data Shelbi rce(s) Supporting Document(s) ID Date Data Source [id number] 04/08/2019 06:37:55 AM [facility] XR SKULL LIMITED [id number] RESULTInterp reted by:CAROLIN De La TorreROCARNOL INFORMATION: Exam: XR Skull, Less Than 4 Views Exam date and time: 04/08/2019 4:09 AM Age: 28 years old Clinical indication: Other: Shunt series TECHNIQUE: Imaging protocol: XR of the skull, less than 4 views. COMPARISON: CR XR SKULL LIMITED [id number] 02/28/2019 11:42 PM FINDINGS: Tubes, catheters and devices: There are bilateral [employer]ASS [employer] shunt tubing components that are partially seen, [...] rce(s) Supporting Document(s) ID Date Data Source [id number] 04/08/2019 06:31:20 AM [facility] XR CHEST FRONTAL AND LATERAL [id number] RESULTInterpreted by:CAROLIN De La TorreROCARNOL INFORMATION: Exam: XR Chest, 2 Views Exam date and time: 04/08/2019 4:09 AM Age: 28 years old Clinical indication: Other: Shunt series TECHNIQUE: Imaging protocol: XR of the chest Views: 2 views. COMPARISON: CR XR CHEST FRONTAL AND LATERAL [id number] 02/28/2019 11:43 PM FINDINGS: Tubes, catheters and [...] rce(s) Supporting Document(s) ID Date Data Source [id number] 04/08/2019 06:30:15 AM [facility] XR ABDOMEN AP SUPINE AND [...] XR ABDOMEN AP SUPINE AND LATERAL VIEW [id number] 02/28/2019 11:44 PM FINDINGS: Tubes, catheters and [...] rce(s) Supporting Document(s) ID Date Data Source [id number] 04/08/2019 04:40:47 AM [facility] Name Value Range Interpretation Code Description Data Shelbi rce(s) Supporting Document(s) Choriogonadotropin.beta subunit free [Units/volume] in Serum or Plasm a <5 [facility] (NOTE)Levels between 5 and 25 [IU]/L may indicate earlypregnancy and should be repeated after 48 hours. ID Date Data Source [id number] 04/08/2019 04:51:30 AM [facility] Name Value Range Interpretation Code Description Data Shelbi rce(s) Supporting Document(s) Leukocytes [#/volume] in Blood by Automated count 11.0 10*3/uL 4-10 [facility] Erythrocytes [#/volume] in Blood by Automated count 4.94 10*6/uL 4.1- 5.3 [facility] Hemoglobin [Mass/volume] in Blood 14.8 g/dL 11.5-15.5 [facility] Hematocrit [Volume Fraction] of Blood by Automated count 45.0 % 3 6-45 [facility] Erythrocyte mean corpuscular volume [Entitic volume] by Auto mated count 91.0 fL 80-96 [facility] Erythrocyte mean corpuscular hemoglobin [Entitic mass] by Automated count 29.9 pg 27-33 [facility] Erythrocyte mean corpuscular hemoglobin concentration [Mass/volume] by Automated count 32.9 g/dL 32.0-36.0 [facility] Erythrocyte distribution width [Ratio] by Automated count 14.7 % 11.5-14.5 H [facility] Platelets [#/volume] in Blood by Automated count 410 10*3/uL 150-400 [facility] Differential cell count method - Blood [facility] Neutrophils/100 leukocytes in Blood by Automated count 92 % [facility] Lymphocytes/100 leukocytes in Blood by Automated count 7 % [facility] Monocytes/100 leukocytes in Blood by Automated count 1 % [facility] Eosinophils/100 leukocytes in Blood by Automated count 0 % [facility] Basophils/100 leukocytes in Blood by Automated count 0 % [facility] Neutrophils [#/volume] in Blood by Automated count 10.01 10*3/uL 1.8- 7.0 [facility] Lymphocytes [#/volume] in Blood by Automated count 0.76 10*3/uL 1.2-4 .0 L [facility] Monocytes [#/volume] in Blood by Automated count 0.14 10*3/uL 0-0.8 [facility] Eosinophils [#/volume] in Blood by Automated count 0.00 10*3/uL 0-0.5 [facility] Basophils [#/volume] in Blood by Automated count 0.05 10*3/uL 0-0.2 [facility] Nucleated erythrocytes/100 leukocytes [Ratio] in Blood by Automated count 0 /100{WBCs} 0-0 [facility] ID Date Data Source [id number] 04/08/2019 04:59:28 AM EST [facility] Name Value Range Interpretation Code Description Data Shelbi rce(s) Supporting Document(s) Albumin [Mass/volume] in Serum or Plasma by Bromocresol green (BCG) dye binding method 4.9 g/dL 3.5-5.2 [facility] Bilirubin.total [Mass/volume] in Serum or Plasma 0.3 mg/dL <1.2 [facility] Calcium [Mass/volume] in Serum or Plasma 9.6 mg/dL 8.6-10.0 [facility] Chloride [Moles/volume] in Serum or Plasma 100 mmol/L 98-107 [facility] Creatinine [Mass/volume] in Serum or Plasma 0.76 mg/dL 0.50-0.90 [facility] Glucose [Mass/volume] in Serum or Plasma 148 mg/dL 70-140 [facility] Alkaline phosphatase [Enzymatic activity/volume] in Serum or Plasma 88 U/L 35-104 [facility] Potassium [Moles/volume] in Serum or Plasma 4.4 mmol/L 3.4-5.1 [facility] Protein [Mass/volume] in Serum or Plasma 8.1 g/dL 6.4-8.3 [facility] Sodium [Moles/volume] in Serum or Plasma 135 mmol/L 136-145 L [facility] Aspartate aminotransferase [Enzymatic activity/volume] in Serum or Plasma 39 U/L <32 [facility] Hemolyzed Urea nitrogen [Mass/volume] in Serum or Plasma 9 mg/dL 6-20 [facility] Osmolality of Serum or Plasma by calculation 281 mosm/kg 275-300 [facility] Creatinine/Urea nitrogen [Mass Ratio] in Serum or Plasma 12 [facility] Bicarbonate [Moles/volume] in Serum 22 mmol/L 22-29 [facility] Alanine aminotransferase [Enzymatic activity/volume] in Seru m or Plasma 57 U/L <33 [facility] Anion gap 3 in Serum or Plasma 13 mmol/L 8-15 [facility] Albumin/Globulin [Mass Ratio] in Serum or Plasma 1.5 [facility] Glomerular filtration rate/1.73 sq M pre dicted among non-blacks [Volume Rate/Area] in Serum or Plasma by Creatinine-based formula (MDRD) >6 0 [facility] Glomerular filtration rate/1.73 sq M pre dicted among blacks [Volume Rate/Area] in Serum or Plasma by Creatinine-based formula (MDRD) >60 [facility] ID Date Data Source [id number] 04/08/2019 05:20:35 AM EST [facility] Name Value Range Interpretation Code Description Data Shelbi rce(s) Supporting Document(s) Erythrocyte sedimentation rate 28 mm/hr <20 H [facility] ID Date Data Source [id number] 04/08/2019 05:25:22 AM [facility] Name Value Range Interpretation Code Description Data Shelbi rce(s) Supporting Document(s) C reactive protein [Mass/volume] in Serum or Plasma 4.7 mg/L <8.0 [facility] ID Date Data Source [id number] 04/08/2019 06:42:01 AM [facility] Name Value Range Interpretation Code Description Data Shelbi rce(s) Supporting Document(s) Prothrombin time (PT) 12.8 s 12.5-14.9 [facility] INR in Platelet poor plasma by Coagulation assay 0.93 [facility] ID Date Data Source 04/08/2019 06:42:01 AM [facility] Name Value Range Interpretation Code Description Data Shelbi rce(s) Supporting Document(s) aPTT in Platelet poor plasma by Coagulation assay 27.8 s 24.0-34. 0 [facility] ID Date Data Source [id number] 04/08/2019 05:17:38 AM [facility] Name Value Range Interpretation Code Description Data Shelbi rce(s) Supporting Document(s) ABO and Rh group [Type] in Blood [facility] Blood group antibody screen [Presence] in Serum or Plasma [facility] Blood bank comment [facility] ID Date Data Source [id number] 04/07/2019 07:50:00 PM [facility] [...] Name Value Range Interpretation Code Description Data [facility] rce(s) Supporting Document(s) ID Date Data Source [id number] 04/07/2019 08:53:00 PM EST [facility] TSYS[facility] [id number] Name Value Range Interpretation Code Description Data [facility] rce(s) Supporting Document(s) C REACTIVE PROTEIN 4.0 mg/L 0.0-3.0 [facility] Date Data Source [id number] 04/07/2019 07:40:00 PM EST [facility] [id number] Name Value Range Interpretation Code Description [facility]) GLUCOSE 92 mg/dL 74-106 [facility] BLOOD UREA NITROGEN 13 mg/dL 7-18 [facility] CREATININE 0.7 mg/dL 0.6-1.0 [facility] SODIUM 139 mmol/L 136-145 [facility] POTASSIUM 4.0 mmol/L 3.5-5.1 [facility] CHLORIDE 104 mmol/L 98-107 [facility] CO2 24 mmol/L 21-32 [facility] CALCIUM 9.1 mg/dL 8.5-10.1 [facility] ANION GAP 11.0 mmol/L 5-12 [facility] GLOMERULAR FILTRATION RATE >90 mL/min [facility] GFR IS CALCULATED IN mL/min/1.73m2 JESICA L FUNCTION: >90MILDLY DECREASED: 60-89MILDY TO MODERATELY DECREASED: 45-59 MODERATELY TO SEVERELY DECREASED: 30-44SEVERELY DECREASED: 15-29RENAL FAILURE: <15 AST 21 U/L 15-37 [facility] ALT 57 U/L 12-78 [facility] ALKALINE PHOSPHATASE 79 U/L 46-116 [facility] TOTAL BILIRUBIN 0.2 mg/dL 0.2-1.0 [facility] TOTAL PROTEIN 7.6 g/dl 6.4-8.2 [facility] ALBUMIN 4.0 gm/dL 3.4-5.0 [facility] ID Date Data Source [id number] 04/07/2019 07:12:00 PM EST [facility]SYS[facility] [id number] Name Value Range Interpretation Code Description Data Shelbi rce(s) Supporting Document(s) WHITE BLOOD COUNT 8.7 K/mm3 4.0-10.0 [facility] RED [facility]LOOD [facility] 4.51 M/mm3 4.00-5.50 [facility] HEMOGLOBIN 13.4 gm/dL 12.0-16.0 [facility] HEMATOCRIT 40.8 % 36.0-48.8 [facility] MEAN CELL VOLUME 90.5 fl 80-96 [facility] MEAN CORPUSCULAR HEMOGLOBIN 29.7 pg 27.0-31.0 [facility] MEAN CORPUSCULAR HGB CONC 32.8 g/dl 32.0-36.0 [facility] RED CELL DISTRIBUTION WIDTH 13.4 % 10.0-14.5 [facility] PLATELET COUNT 352 K/mm3 172-450 [facility] MEAN PLATELET VOLUME 9.4 fl 9.0-13.0 [facility] GRAN % 60.5 % 50-80.0 [facility] IG% 0.3 % 0.0-0.2 H [facility] LYMPH % 29.0 % 25.0-50.0 [facility] MONO % 7.1 % 2.0-10.0 [facility] EOS % 2.6 % 0-5.0 [facility] BASO % 0.5 % 0.0-2.0 [facility] GRAN # 5.2 K/mm3 2.0-8.00 [facility] IG# 0.0 K/mm3 0.0-0.2 [facility] LYMPH # 2.5 K/mm3 1.0-5.0 [facility] MONO # 0.6 K/mm3 0.10-1.20 [facility] EOS # 0.2 K/mm3 0.0-0.5 [facility] BASO # 0.0 K/mm3 0.0-0.2 [facility] ID Date Data Source [id number] 03/13/2019 05:11:28 PM [facility] Name Value Range Interpretation Code Description Data Shelbi rc(s) Supporting Document(s) ED Provider Note [facility] ENWBLp1hMbNUAjCm27/RVAviKDApw6RyQWtmCIx7XDlbRZDnG0JaJQZ8pE8aHXX8YTiSAyIwByByKPB3 [facility]file[facility] AgICAgICAgICAgICAgICAgICAgICAgICAgICAgICAg ICAgICAgICAgICAgICAgICAgICAgICANCiAgICAgICAgICAgICAgICAgICAgICAgICAgICAgICAgICAg ICAgICAgICAgICAgICAgICAgICAgICAgICAgICAgICAgICAgICAgICAgICAgICAgICAgICAgICAgICAg ICAgICANCiAgICAgICAgICAgICAgICAgICAgICAgIC AgICAgICAgICAgICAgICAgICAgICAgICAgICAgICAgICAgICAgICAgICAgICAgICAgICAgICAgICAgIC AgICAgICAgICAgICAgICANCiAgICAgICAgICAgICAgICAgICAgICAgICAgICAgICAgICAgICAgICAgIC AgICAgICAgICAgICAgICAgICAgICAgICAgICAgICAg ICAgICAgICAgICAgICAgICAgICAgICAgICANCiAgICAgICAgICAgICAgICAgICAgICAgICAgICAgICAg ICAgICAgICAgICAgICAgICAgICAgICAgICAgICAgICAgICAgICAgICAgICAgICAgICAgICAgICAgICAg ICAgICAgICANCiAgICAgICAgICAgICAgICAgICAgIC AgICAgICAgICAgICAgICAgICAgICAgICAgICAgICAgICAgICAgICAgICAgICAgICAgICAgICAgICAgIC AgICAgICAgICAgICAgICAgICANCiAgICAgICAgICAgICAgICAgICAgICAgICAgICAgICAgICAgICAgIC AgICAgICAgICAgICAgICAgICAgICAgICAgICAgICAg ICAgICAgICAgICAgICAgICAgICAgICAgICAgICANCiAgICAgICAgICAgICAgICAgICAgICAgICAgICAg ICAgICAgICAgICAgICAgICAgICAgICAgICAgICAgICAgICAgICAgICAgICAgICAgICAgICAgICAgICAg ICAgICAgICAgICANCiAgICAgICAgICAgICAgICAgIC AgICAgICAgICAgICAgICAgICAgICAgICAgICAgICAgICAgICAgICAgICAgICAgICAgICAgICAgICAgIC AgICAgICAgICAgICAgICAgICAgICANCiAgICAgICAgICAgICAgICAgICAgICAgICAgICAgICAgICAgIC AgICAgICAgICAgICAgICAgICAgICAgICAgICAgICAg ICAgICAgICAgICAgICAgICAgICAgICAgICAgICAgICANCjw/iHQgL5lsvGYmdnN1O2jiBx3CKc1CZA3q g3OvAULbZDcxerZcYllSPuYxMGLoZqzUTur6PGtuSL9RnKOqE0NrX8LvQNgzQF1YFKCmZEGybFMxKZNa XPZtNeY1JSDiIVpfLP6EsMSzEZwcKCDhMRQgIcUdZZ WpFDNoNSKDMKJuPXKjWeNyUCMbPMIhAGEqIXPXBGY9GDDeWnSiMDPnTLFwJnWaOSSQZL4DGnRdG2NzwU 62KJoUWk4+LHbejqGxIscRFeViFKHmd9KyAGf2JP4HBVTaHfeny5AhEHIdYAMTUZzcVG8UAES3WKL6LI GiTh7VULSnX681bdAeGd0EYw6YBhQnSA9leu5YNXNz XNEqCfbWJxi7SMpeRK6RdDAzSXzECXMNmz55tIXdoyRPb2IlvtHlqATReHhkoUSQRVT1coX2cT1oLOZF UzGkjYVjHc0cIN5iMYE5DQNgAeS3YOECHM0SNMGjCUUtnAMvVYLmDBEMAT8SKLziLQT8NtSpwoLnxRAs FFrsQS5BLIWpjtFdYCYeQSVYZJodJB2VtRAwvKW7SM XoWHTQHdXzM9onw5RjKGMwXPAMKGwjHL7Yz4EsgEHgWF0SGYOuGfA9hDI7JLOdLPRXCh2+DQplbmRvYm lGZpA1CIMvk6ZqVPd4GI9UTQRoCAn9rNTwBzDjy7vvsmFwYJ9JGEXgLMUizQJqFRflJSZSYB8UMXrbSO U1VOTtubKliQFuQNbuPH1CFZHgyoBoXAIeKWVEQPa+ Bn3ECR0vt9TbJJq5TMExNH0wbi7MEJcYHtEeW9IloQooKJDEELIsg5GyZOQhGL2skWTyBJA2YXKwaKf5 RWLxD7LtKSQ7f25cAEGOUJX2NFDbAiX2ZbAjVGbuPBN6KdYsZG1yBQndLF7GBJZ1BSmwOjJfPWYxQ5rS KuTgGEklBI08rZceWX4VDGMmTUDgXI11JRCfKRAoRz 4IJNAnTIEgyyX3OwJwXJHDXxPyE99jpDAsHGEjVUXLGBq+Wd9AAH6pd1JpGUe0UyBoTT3pgz7DPSwJGs ZhD6QxlMwyQVMHBVRjo9PrROPiMU8waDQbMAM1XR3iT6puhCTzFWTjBIZtIFFwuJZmXJSGSRX7ZYVeIs W9UtScGPjeMRA3XAExRL6fDUpcFE6YETV8YOauPGPr QFJTXB0OBVivNEV0QRQqstInvJAkKGccGL6RUAVqyyWeCXPkPIPRTGdhOO9XloA2ZKB2UCCkPy4YOVIa VyQ6iSZ8YaIrLARQFq0+XRshmvPbTxiZGnT3POYau5EoTSg2CN1AKSUtJGg7sLRnTLKbDv08TZMnAlvp LGXhiOLuDIYDBYNvjNInpbpdMb5hCGSiRWTnXnzaLs DlDDXdIErbPVXSZOrCRgFfU1Xli7GiZlNqONIkDWRdR1nHDrHxGZt3TI70tQqjUM4NJKIxLEZgGE45PE JlNCHhRa0UFRRdXGObvmN9EzOyIKLKJlSuO60vrREzHIrqNVKYWUa+Cz5AHO9sv7VqSKd2CTAaIP6ozd 2QHUiSYjElO6IkcFcqEINHAO5seHEkXLS0FMHgvqur nwSwCOJBZSbaUFVsZSKVLVB9ENHpKiL9FvErUHhqPAQ3JxerCO4gGAtdHO5QQAX4VGzxJrFaKPOZZC0C CCbtAOO0RXpvwuAseITiQKshXP1DQJQydoErFUOxKWQKMIabSZ4JgzG2IYM3HXXgXl1ZPSEcFmO2oHH9 OSAwIFINCj4+KQgsijXyNlhSLlD6VRRjl9IhFFj7NZ 6CEFThVUh1vYGkOZYrYUGuVAnpDL1jzXPvUPN3IJTvmgNiDQMlV7dsk5EykE9dRXYYDXZ0ABDdIkZ7Fl TkIAytHKw2SULxSZ9tVLqgRH2RTHA1HEzdFsEmNNBRMZ8ARBnoRDFkKKgieeFcjBVlLBojOW1QLLEhdu HrVLFqCSEQRAnqFH3QveF7NMP4XHIfLg3HDv9STcMf XB9tsx7EZNQwSS6oxy0BKArFPvCsH8U3wPNrJ3Yomm21NF4HoPA9zBXjBW8DnV4hMR9Dd8ZnITUbDbJk ETDaFPWvBUVsSDZzSyMuHO5BZLHsFnZhmNCkZMUgQvX2OLJdLBOgKAlvOP8UMCXaPUNuqUBlXVFsYOty MYY0UKZ2QSBlyMogAQ6yERulLA3HMNt8R9FkA6zfUS 8fMl2eYWq+Jl7QPL5ih5MiNTw4LNViDV9ehe4RNZjFUfPaC7A6bMYtM9S9BHclAd8DIXOmBLNpPAKjSI SAKXdaLX8XYP1uzmI8MQ2NoUKmERZoYTHhiJHiQTt9Q55xpMEwZBgnOY4WEDQ+Tiffany+Mc9PWRIfAIZhNH VnKdLgCRJTUeOqE2AdV0ZXr4SsE8UiSV28gFcqoqNd YUqaKC8FBU8kGRFmDHQUNO8VhZFipH4xwfO9MpVuIUDVNaBxO44gbLAtITNoZMDfMJYaWi1PLQMmB2Qa qlGvtFegfjJgTZMdKJQOSU6ZJScholXsiBQwcYcaJN67xEvlZN8WPi6LMwHwRC4rcu5QrSFuYh2QSFT5 PD7ZTSXeINAsWXEwEUH8CZIaSoUpMCdkEGUnWVFhOW W9TACrXLJeKZ1VGvAoIHRpBOj4FDIdCNTeTJVymz1VNDXiKMQ2WZZ0ZwKsCKZpTNDeKQplNEYwTJMxNE R3PDSfGZOyPF1NYfHoDKDpHBJ5JdLdULJfQLGtgx9LHOSoDQYlYNM5AZRcIHVxKWEhOLgxTLGvKYF1BP L3SRCwGWEqFH4XLtQhXJTcSWQ2IMeyTLYiQKMlnd4L OGGrWETkQhS1ObYgXLPkNOZkBEwzZVZxDVPfNOB0WKVaRDLoSM1MXxMcHEHfJZArGYFsBPHmWWHshf4C PNGkWLZjEULlJmYeOGWxWOMcIOmpSXKcWPJ6NaWlMMAuVMNmLD3WGwWrNDGmMUu6STSfYDDfVODyyr3X FVPxBPMaSTI1KYPjHMFaOKEvKNleLSRySZUpCqH6FM BgXTZeLK4CEiZzLSKnVeW0ByDxGTPgYEHmbm9RBDBeMUWjTnzpLDHvWWDcRMSrZCawFAZlKEX1MIJ2UV RrNVUtTE1GFeReRLDpJsF1NjGsKEKdNLNttk2GGOTcXKYrHhs7UMRgCANyUEIsVOlaXXZhKUG9TVP8GF OhJSNlHM1ODaAdFJEuRmx2VDZkMNWdUJWmsh0PFNHr CUBlLJjkIkOkLXLeQRIbLYwbHOKeCYDwDGRiDKAeJGIzBA9BJgIjYVQsUuOwTMYtWXCgVIWrli7XQQVw QWXaJxX2WvUgYHIuQQAkCFobQDReBOIgQnN1BFTwLJKcKW2HTbVnPJDhNtP3ZPHpDJFqWHHiji9YRYLx NLGlNdHaRiZjYFXzMKDxRFlxFOGiVEZjRXf9SGDaTA UeRS5BMfDpBJJfCdH4WGVkIGXeBARhie8LGSIlSNI7HCW1UdVlZFHsEORvDXkbCCBhRKI8IVc3TJPgKE WnWC7TNlYaXWHnQCD8ASIeOXTrVUTiph3SVULyAFS0HUkyJiZvSVIxJPKmWWpwRNWzGYA6JEw9XJGdAS XoTT6OInJsBZOjVPeiWwEjBSBmNSOqgj7BCTHiDXG7 UpDrNVDsYXPcAMDhZZzpOPFcDVM7Xfl6UKOgDYIlVF3KTsLgXQTlXGu2HmPmTBMtKJLjju0IMPSwMHO2 WPJpYFDgBVHcBGRsPWfhYMTzYQH4Bya3GFXaBZWtHR2IOrQeOKOnCMg4LGFbKXSoPYZvag2BLXMoVYA3 IIwaEtGyRNWcUDJgKMeiDIQuHPN5XPe5IQYhOCDtWP 0IDgLoUNYsHYKeRYAwUPVcSAUweu3INMOxGAB5CRD1JEAfVKUeZMVgQXwkWISjBEAhFSM2DHClMORnKJ 6TLmXdTTHqJXA6NrHbTLFmVEQzsl0KuQHxdCeucq1YWGaVTu7XeVziHOWpCMrlQd3ppJV2TPAcKJCUVo 0JmnBjUOVtVDUQOSqmFYXrAUQ7CIH4NTN7ESM9RNW7 DTBcHuB2MEvjTBBsJCR2WXQxJwR7DHCoOHTrWFYjJke3XoTeRGDcOCuhWOFiUyBlIjD6LlE+JM8iCQy+ Ea5Px7XlvqZ0xbDwBKg6IBSjBL8TZJCWM2JCLe== ID Date Data Source [id number] 03/06/2019 10:08:48 PM EST [facility] Name Value Range Interpretation Code Description Data Shelbi rce(s) Supporting Document(s) ED Provider Note [facility] QWBAKe6tImEKIjWi14/RYNgwWLEja2IpEDvcEDk0WZpkDICiL5SxIDK2jT6lNHM9ZJhWSrDyDbOaOARd lbm [file] KV7PPLJ+Tiffany+Hy8ETWBnAJAjIJHmXcVpQNYCFzYlU7AgV3KXh2SnX8UvIF11rLgskfEzTWcvJT2BWD5k OPGlLZLJYT0NeLHceK0ykvW1UbAiKDZZAgUeB19jiVFxQEFlIOU8GYNkZx3XHJOnA0IlbeCfvHztuuHa QCJfZBELTJ1RUIjiznFvpBSgzAgqAQ85mMiyFE4KFi 7IWrUpSF5kev3XyRVsDq0XKCF3NZ9ZZREsINEfYPPaCMG9FNZgItUmZTgwHNEuPXAlEYK0NJXfBHQcBZ 8AFlEjHQMaNDLbNeaxNTFdUFYjvu1CMNGcDUA9Tja5XNInZYTpFBOsAZowWVQlLZKcIGV7VAQtAOPxTM 4ZPbYpXUSjDOK9RMFpBOVxVYAuow8IPPBiCHZjXvu7 MtIlJRMzAWZbWClyVPOlLNE1LVAuRNOtWMXjZZ7YGqWoCHEsKVutTOmrWEZySZXwvs6MTMIsSSTvJDux JnWjECWtKNGkVBymQLUsMFSjQPHvPNQyBBSbBK3OKrZvKTKwOYKiNBcjFUWfPRDotz7BKHCnSOWdYpIg SJXoQHCtNAJyPWroXHIgHAX3THP9RBMlABEbPW2NMs UlFWGzYRJ4YnUvYTLdOJLvdu9BCAMqJYDbXPz4JmVeAPZsKYDgDDlyURTpCUX6KJNmNJBxETLiPY3COn JlSNCwCmY3GiRfYQGwNTVzlv7AEIFxNOCzZqP2BVWdPPZoIJCoTPgwZSCuBCP8EVU1ZQEdQLKsYT7VLf KaBCLxEyJeWhDeSVDoWYRudy2BXPYxUEQmOZj6AgYp BYTaNSDmRXdlZSTtSPS0CIK8PDLfEBKgFH1LAdVqSDObBuX9MoxpTBDnWKTegi2TPDGcMABpHkh8DLSm NNPlBLRnYRgdPQLlKLB6XDd6WZYuZZMpCT1UUuZuNOOiOlYdBWQyKXAfKGAqvy9LOBIhAPPsPZL0QXGg PHUoCYXnCYueFWLqEVI8ROakQUScEYThVR0IEeXsGM MkBjg7XyGhXVYfDFVeuz7OOJUcJQHzDBinBRYbJOCbDJViMHnxLOMhDWT9JWJaVZYxDTXuYM5TJkOuOL OsEYJ2VeFkTTBzIDAjkl5OIBMkUZL8NCL5VfXkMWNhDUNmDIakNVOgZUWpBfKrCNDjNZDxBH4HEeAaAI TkUMUoDcLuWULgBSQsuh1HFQZySLC5YmXoTkMlDCVb GONnOFvmWUYgOWKyIqSeWSInFBVfLY4EQdOwSYXwQMN7QETgQRVtDESknx8IPAXnJNE1FJNhTeSjYHLi QGUeEKqwXTHeLVK9CEYkMLUjIPQlBT1WLiNfORDvDCE0KAFvERGkWAWjym5VVBNtCEJ3JIh4ZoTvVCXm PSFhDSeiBOAjFRW1DNGyPLOaZVTvDD7PWwOzTHYhKI RnIvxdWUDpBDEntv1ELOXcPHG0ZhRdUoOiAUTsNLUaIYhxELNyVQX0GmEcDZNfLOTjPH2XQxXwTXSwPC rnVJPiOEInMFPspr7ZWOBbLYL0OLFqLQKnMTRkSMBaAArnPLRmAZD3Mos5RRUaCIAbGN7FBsNmXUMgWE k1SBIiWCFbVHUddc6QFOWzJVB0HCx9SXIcECSyTXLu OLtcNMDxVHL4VYU7SPNcBGVfJF9ZKmQcERAaYXzzPfZhHHTbXEFagn8AYTQgGCT1XIAhOdPsYZAdBUJv EXt7wcTdpVIcFBl2AQ8OV4ZtztVdHGYOTm2Uj912UEZ5CNIgBz5HW8ifNo8aOKMaVVLZNm0ZZNy7SdL1 JiXzUWBoMSD1GWy0Vld8VCL5QIX1TRKvMTR6ZAn+ID oaEHGnYkP3VNB3NTKeDQq6JSD6WUYhJpLcUHKqAcMkPO0nKXIZNm2+ZXzhvNYyuVwsSYVYKlV7UUYnWE gnJDZCYp0K ID Date Data Source [id number] 03/06/2019 10:38:00 AM EST [facility] [address] [place] [address] PHONE: [phone] FAX: [phone] Name .................. : JOE Knutson Acct Number.................. : [id number] ROOM. ................. : TR07 Number ................... : [id number] Stay type ............. : E/R Discharge Date......... ... : 03/04/19 Admit Date ......... : 03/04/19 Admit Phys .................... : SHE CATINA Date of ....... : 1990 Family Phys ................... : UNKNOWN Phone .................. : [phone] Age ................................ : 28 Film# .................. .:[id number] Sex ................................. : F Unsigned transcriptions are preliminary reports and do not represent a medical or legal document CT CERV SPINE W/O ASHLEY 53290 COMPLETE:03/04/19 17:09 KAH 87995 Reason(s): Trauma/Injury CT OF THE CERVICAL SPINE [...] rce(s) Supporting Document(s) ID Date Data Source [id number] 03/06/2019 10:38:00 [place] [address] PHONE: [phone] FAX: [phone] Name .................. : JOE Knutson Acct Number.................. : [id number] ROOM. ................. : TR-07 MR Number ................... : [id number] Stay type ............. : E/R Discharge Date......... ... : 03/04/19 Admit Date ......... : 03/04/19 Admit Phys .................... : SHE CATINA Date of ....... : 1990 Family Phys ................... : UNKNOWN Phone .................. : [phone] Age ................................ : 28 Film# .................. .:[id number] Sex ................................. : F Unsigned transcriptions are preliminary reports and do not represent a medical or legal document CT HEAD W/O CONTRAST 20705 COMPLETE:03/04/19 17:09 KAH 11321 Reaso n(s): Headache CT OF THE HEAD [...] By Jae Goldstein M.D. , 03/06/19 10:38, [facility] Transcribe Initials: JIE , Transcribe Date: 03/04/19 18:05, Dictation Date: Page 1 of 2 [facility] [address] [facility] [place] [address] PHONE: [phone] FAX: [phone] Name .................. : JOE Knutson Acct Number.................. : [id number] ROOM. ................. : TR- MR Number ................... : [id number] Stay type ............. : E/R Discharge Date......... ... : 03/04/19 Admit Date ......... : 03/04/19 Admit Phys .................... : SHE CATINA Date of ....... : 1990 Family Phys ................... : UNKNOWN Phone .................. : [phone] Age ................................ : 28 Film# .................. .:[id number] Sex ................................. : F Unsigned transcriptions are preliminary reports and do not represent a medical or legal document CT HEAD W/O CONTRAST 58132 COMPLETE:03/04/19 17:09 KAH 82261 Reason(s): Headache Copy for: CHRIS August via fax Copy for: SHE Woodard via fax Copy for: EMERGENCY DEPT via modem Copy for: 710 MED REC DISCHARGED Page 2 of 2 Name Value Range Interpretation Code Description Data Shelbi rce(s) Supporting Document(s) ID Date Data Source [id number] 03/04/2019 01:42:00 PM EST [facility] 1 OrderSheet [facility] Emergency Department [address] [place] [address] Phone #: ext- [phone] 03/04/2019 13:28 Patient: [...] Tylor Moore RNx1) MARITOC ; 2 OrderSheet [facility] Emergency Department [address] [place] [address] Phone #: ext- [phone] 03/04/2019 13:28 Patient: [...] PO 16:14 03/04/2019 16:21 Sorbte,1000 mg (NOW) Tylor Moore R.N.C ;GENERAL ORDERSOrder Description Priority Entered Acknowledged Initialed[Electronically signed by Jose L Caruso R.N. (19:35 03/04/2019)][Electronically signed by Tylor Moore (20:59 03/04/2019)][Electronically locked by Jose L Caruso R.N. (19:35 1 )] Name Value Range Interpretation Code Description Data Shelbi rce(s) Supporting Document(s) ID Date Data Source [id number] 03/04/2019 01:42:00 PM EST [facility] 1 Medication Reconciliation Report [facility] Emergency Department [address] [place] [address] Phone #: ext- [phone] 03/04/2019 13:28 [id number] Sex: F : 1990 Age: 28yWeight: 111.1 [...] tabs at night 2 Medication Reconciliation Report [facility] Emergency Department [address] [place] [address] Phone #: ext- [phone] 03/04/2019 13:28 Patient: [...] rce(s) Supporting Document(s) ID Date Data Source [id number] 03/04/2019 01:42:00 PM EST [facility] 1 Medication Administration Record [facility] Emergency Department [address] [place] [address] Phone #: ext- [phone] 03/04/2019 13:28 Patient: [...] rce(s) Supporting Document(s) ID Date Data Source [id number] 03/04/2019 01:42:00 PM EST [facility] 1 General Instructions [facility] Emergency Department [address] [place] [address] Phone #: ext- [phone] 03/04/2019 13:28 Patient: [...] in that symptoms other 2 General Instructions [facility] Emergency Department [address] [place] [address] Phone #: ext- [phone] 03/04/2019 13:28 Patient: [...] pepperoni, and salami Liver 3 General Instructions [facility] Emergency Department [address] [place] [address] Phone #: ext- [phone] 03/04/2019 13:28 [id number] Sex: F : 1990 Age: 28y Avocados [...] prevent your headaches.Follow-up careFollow up with your [facility] provider, or as advised. Talk with [...] healthcare provider Stiff neck 4 General Instructions [facility] Emergency Department [address] [place] [address] Phone #: ext- [phone] 03/04/2019 13:28 Patient: NIMA DIAZ Sex: F : 1990 Age: 28y Extreme drowsiness, confusion, or fainting Dizziness, or dizziness with spinning sensation (vertigo) Weakness in an arm or leg, or on one side of your face Difficulty talking or seeing 1999- 2017 [employer]. [address] [place] [address]. All rights reserved. This information is not [...] it is under control. 5 General Instructions [facility] Emergency Department [address] [place] [address] Phone #: ext- [phone] 03/04/2019 13:28 [id number] Sex: F : 1990 Age: 28yHome careTo [...] buy blood pressure monitors at most pharmacies.The [place] [employer] recommends the following guidelines for [...] 2 out of 3 6 General Instructions [facility] Emergency Department [address] [place] [address] Phone #: ext- [phone] 03/04/2019 13:28 --- [...] face You have problems speaking or seeing [phone] [employer]. [address] [place] [address]. All rights reserved. This information is not intended as asubstitute for professional medical care. Always follow your healthcare professional's instructions. You have been given the following additional information: Headache, Migraine, Classic Hypertension, To Be Confirmed(Electronically signed by Tylor Moore PA-C, 03/04/2019 20:59) Name Value Range Interpretation Code Description Data Shelbi rce(s) Supporting Document(s) ID Date Data Source [id number] 03/04/2019 01:42:00 PM EST [facility] 1 Clinical Report - Nurses [facility] Emergency Department [address] [place] [address] Phone #: ext- [phone] 03/04/2019 13:28 Patient: [...] the left side of her head,where her GLASS FURNACE TENDER shunt is, now she has much head pain, GLASS FURNACE TENDER shunt put in at [facility]).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 2 Clinical Report - Nurses [facility] Emergency Department [address] [place] [address] Phone #: xof- [phone] 03/04/2019 13:28 [id number] Sex: F : 1990 Age: 28y Zanaflex [...] treatment room. --13:38 03/04/19 Vimal Eddy RN.PHYSICAL PAETOJXPDJ62:[id number] 03/04/19. Ambulatory to room.GENERAL / NEURO / PSYCH: Alert. Oriented X 4. Appears in no acute distress.HEENT: Left parietal area: tenderness. Head.RESPIRATORY: Respirations not labored. Chest nontender. Breath sounds within normal limits.CVS: Normal heart rate and rhythm. Pulses within normal limits. Capillary refill less than 2 seconds. 3 Clinical Report - Nurses [facility] Emergency Department [address] [place] [address] Phone #: ext- [phone] 03/04/2019 13:28 [id number] Sex: F : 1990 Age: 28y GI [...] --15:05 03/04/19 4 Clinical Report - Nurses [facility] Emergency Department [address] [place] [address] Phone #: ext- [phone] 03/04/2019 13:28 Patient: [...] RR: 18. O2 saturation: 100%. --15:39 03/04/19 JonathanRoughHands Tech1 16:10 03/04/19. Reassessment acuity: LEVEL 3. [...] F. Pain level now: 08/12. --16:56 03/04/19 [facility] in2nite, ANUM Dinero Tech1 16:54 03/04/2019 Site #2 removed upon discharge. Catheter intact. Bandage applied. --17:04 03/04/19 Jose L Caruso R.N. 5 Clinical Report - Nurses [facility] Emergency Department [address] [place] [address] Phone #: ext- [phone] 03/04/2019 13:28 Patient: [...] The patient was discharged by the physician assistant mechanic. She was discharged home and unaccompanied at time of discharge. She left ambulatory and via private vehicle. Patient driving. --17:04 03/04/19 Jose L Caruso R.N.Locked/Released at 03/04/2019 19:35 by Jose L Caruso R.N. Name Value Range Interpretation Code Description Data Shelbi rce(s) Supporting Document(s) ID Date Data Source [id number] 03/04/2019 01:42:00 PM EST [facility] 1 Clinical Report - Physicians/Mid Levels [facility] Emergency Department [address] [place] [address] Phone #: ext- [phone] 03/04/2019 13:28 Patient: [...] walking.PAST HISTORYSee nurses notes. Patient has a GLASS FURNACE TENDER shunt in place. Medications: Vitamin B12 Oral [...] AM. 2 Clinical Report - Physicians/Mid Levels [facility] Emergency Department [address] [place] [address] Phone #: ext- [phone] 03/04/2019 13:28 Patient: [...] mL/min 3 Clinical Report - Physicians/Mid Levels [facility] Emergency Department [address] [place] [address] Phone #: ext- [phone] 03/04/2019 13:28 Patient: [...] CBC w Diff: (SOPHY: 03/04/2019 14:41) [facility] 14[facility]51[facility] Final results Test Result Flag [...] HCG, Qual Serum: (SOPHY: 03/04/2019 14:41) ( [facility] 03/04/2019 15:11) Final results Test Result Flag Units (Reference) HCG SERUM QUAL NEGATIVE (NORMAL: NEGAT HCG SERUM QL REENTER NEGATIVE (NORMAL: NEGAT { KIT LOT # [id number] ){ KIT EXP DATE 08-22-20 ){ PROCEDURAL CONTROL VALID ).PROGRESS AND PROCEDURESCourse of Care: ( 28yo Female who receives her neurosur kymberly care at [facility] in [place]. She hasbeen stable and pain free since [...] stable.). 4 Clinical Report - Physicians/Mid Levels [facility] Emergency Department [address] [place] [address] Phone #: ext- [phone] 03/04/2019 13:28 Patient: NIMA DIAZ Sex: F [...] PRN*. 5 Clinical Report - Physicians/Mid Levels [facility] Emergency Department [address] [place] [address] Phone #: ext- [phone] 03/04/2019 13:28 Patient: [...] rce(s) Supporting Document(s) ID Date Data Source [id number] 03/04/2019 03:11:00 PM EST [facility] Name Value Range Interpretation Code Description Data Shelbi rce(s) Supporting Document(s) BASIC METABOLIC PANEL [facility] BASIC METABOLIC PANEL Sodium [Moles/volume] in Serum or Plasma 142 mEq/L 134 - 153 [facility] Potassium [Moles/volume] in Serum or Plasma 4.1 mEq/L 3.6 - 5.0 [facility] Chloride [Moles/volume] in Serum or Plasma 103 mEq/L 98 - 107 [facility] Carbon dioxide, total [Moles/volume] in Serum or Plasma 25 MEQ/L 22 - 30 [facility] Glucose [Mass/volume] in Serum or Plasma 89 MG/DL 65 - 110 [facility] BUN 17 MG/DL 7 - 21 [facility] Creatinine [Mass/volume] in Serum or Plasma 0.6 MG/DL 0.7 - 1.5 L [facility] BUN/CREAT 28 8 - 27 H [facility] Calcium [Mass/volume] in Serum or Plasma 10.1 MG/DL 8.4 - 10.2 [facility] Anion gap 3 in Serum or Plasma 14.0 mmol/L 8.0 - 16.0 [facility] AGE 28 yrs [facility] al AFR AMER GFR >60 mL/min [facility] Ho spital NON-AA GFR >60 mL/min [facility] ital Male GFR Inter prentation 20-49 yrs [...] >32 mL/min Normal ID Date Data Source [id number] 03/04/2019 03:11:00 PM EST [facility] Name Value Range Interpretation Code Description Data Shelbi rce(s) Supporting Document(s) HCG SERUM QUAL NEGATIVE NORMAL: NEGATIVE [facility] HCG SERUM QL REENTER NEGATIVE NORMAL: NEGATIVE [facility] { KIT LOT # [id number] ){ KIT EXP DATE 08-22-20 ){ PROCEDURAL CONTROL VALID ) ID Date Data Source [id number] 03/04/2019 02:51:00 PM EST [facility] Name Value Range Interpretation Code Description Data Shelbi rce(s) Supporting Document(s) CBC W/AUTOMATED DIFF [facility] COMPLETE BLOOD COUNT Leukocytes [#/volume] in Blood by Automated count 8.8 10^3/uL 4.2 - 1 1.0 [facility] Erythrocytes [#/volume] in Blood by Automated count 4.90 10^6/uL 4. 20 - 5.40 [facility] Hemoglobin [Mass/volume] in Blood 14.3 g/dL 12.0 - 16.0 [facility] Hematocrit [Volume Fraction] of Blood by Automated count 44.1 % 3 7.0 - 47.0 [facility] Erythrocyte mean corpuscular volume [Entitic volume] by Auto mated count 90.0 fL 81.0 - 101 [facility] Erythrocyte mean corpuscular hemoglobin [Entitic mass] by Automated count 29.2 pg 27.0 - 34.0 [facility] Erythrocyte mean corpuscular hemoglobin concentration [Mass/volume] by Automated count 32.4 g/dL 31.0 - 36.0 [facility] Erythrocyte distribution width [Ratio] by Automated count 13.1 % 11.5 - 14.5 [facility] Platelets [#/volume] in Blood by Automated count 329 10^3/uL 150 - 45 0 [facility] Platelet mean volume [Entitic volume] in Blood by Automated count 9.7 fL 7.4 - 10.4 [facility] Neutrophils/100 leukocytes in Blood by Automated count 66.2 % 37. 0 - 80.0 [facility] Lymphocytes/100 leukocytes in Blood by Manual count 21.7 % 25.0 - 40.0 L [facility] Monocytes/100 leukocytes in Blood by Automated count 9.1 % 3.0 - 8.0 H [facility] Eosinophils/100 leukocytes in Blood by Automated count 1.8 % 0.0 - 7.0 [facility] Basophils/100 leukocytes in Blood by Automated count 0.7 % 0.0 - 2.5 [facility] %IG 0.5 % 0.0 - 0.0 H [facility] al %NRBC 0.0 % 0.0 - 0.0 [facility] al Neutrophils [#/volume] in Blood by Automated count 5.85 10^3/uL 2.00 - 6.90 [facility] Lymphocytes [#/volume] in Blood by Automated count 1.92 10^3/uL 0.60 - 3.40 [facility] Monocytes [#/volume] in Blood by Automated count 0.80 10^3/uL 0.00 - 0.90 [facility] Eosinophils [#/volume] in Blood by Automated count 0.16 10^3/uL 0.00 - 0.70 [facility] Basophils [#/volume] in Blood by Automated count 0.06 10^3/uL 0.00 - 0.20 [facility] #IG 0.04 10^3/uL 0.00 - 0.10 [facility] ospital #NRBC 0.00 10^3/uL 0.00 - 0.00 [facility] MANUAL DIFF NOT INDICATED [facility] RBC MORPH NOT INDICATED [facility] ID Date Data Source [id number] 03/01/2019 09:23:38 AM [facility] Name Value Range Interpretation Code Description Data Shelbi rce(s) Supporting Document(s) [facility] HNLBFg7tFkZIDqWs27/JXVzoRDZcy0KwUBayHLt9KIoyJLNrH5EaUIZ6rS6vGMR8FEnCPaHjOPvuDfQ4 lbm [file] ErX0BX07DzwTK/[employer] DEMONSTRATOR+yK6lCy+DEelhOU1OVz+khpycOkSZZfgnq1v72yLxoBFD3RUMSgV/IhIFQNk+AP IPBwCb3UXfpz2eNrI6flHjV+2rgSdh7BgLHIeug/1X qTnhtWPMSk77CMCFHaoIgS7c/cKpFEvMV7BRH5dpYk92j2DW/hLia4vjLDihw0KTeOQzLd/Z8FOrJVcG 9MmPojGcrlA/EpPVZnlzHfRRAC8uSdXRbzADI8Xbi2C5X3ua3cTqjChMiebYulhGvWDMnlm2VFYKcWHZ uim9NAabUM7MsWWdmyG+YSrPgNeCSagFJktb4h0v8N 2SAc7qxNIrzqtTFveun3QQiVpgSTNezrYMOIOsqQE3ehMqQ3gefJ5YTNDlctuCOKA9A3M9PnHrAUKrUm rGNb8jpF3CWNIPZmHZMfSzgnu4iKYKbfx9NdkwbspHUBc79nYPpfG/t9SGkZpESHfWPdiglvXICkKEGu Sesar//dhEBzhgE94hhpT1vK/8xv4c8aT0M8ywhasP05 Plcjq/UIgw0GPLrQF7Ou0PoPDQgW9aD8cATfTdNQESiUFXkKVfdGJ0eYheFh+SPwwSP3bfnE6K+VDYkU tOdGVWZAu+7InoUpDapQb1EqR3Nf/Kwhw1fUxD653hgInyPD/zHNM9kW6h3FlPCV/vgXIsLKJn86M62/ DyXpJoCWUMbyt8c43IwCIhRMdpYB4GiHtvf/SyuF29 KrSc9ExV3QKkXLsh1MQjoySJ3zyif5yl7db3Roxl5vlaqcFeT28hLPss4ixschr0cHQPzALnYA+dxYl2 E8vZpccTrbgjLP0r3sEm+wyEMlgMY8obzvX6Dgyxh8SvZwD0Ulj1/UnjAZzAJTo2jVpdfVSvIR2bV98C MzUyQrBIy84KZ2T1UGWTb6Icmgq84/F96qz8ssNf50 vMPtyg+QH8/HvDnEl5GIzukdDouGQnTU6VLaGdKI2rgv3DXLSpTF6xgt7BNKE6RD4FASNnFO2HiBFwC8 FhF9FRXtIvBOCgEXTxIX29KGRdXPPGEHnhIEDhI7Kkz499yqNmkcJmFJOcLc5TBRKdCC6VZDHlEDRooF ObRIPrWJZbCeM5YZXoXYbmJYMtB9VvesHgboQwOBmp AMYEMIsmQXRtR8nsl8LaINm1HG3JPJ5IviSwx7YfkgTaM9bjZ3KUVC0CKDFrQ0MKE9NdB0vbOcHmi8Wr V8ucAnSyd7QdVd6AUlKwQg2FGvEqIY2jrm7NRQXwVDHsAiqXLqWvJKrbOexorVHvVL4UnHL3UFZdC53h YTNqDEVpC2WdLELzObM+Jj3QMVFksTIaVT5BMiwV9J dkguDUGX7rue+bA8WVOgPypbKECSvyVBUgDgdgUmBQAyUZY+0xkL/lR3cjhJ+pk+rE7kwzy1IFLpNxLi VNOevpIo0FnouzL1TCT0rv9SFC0oVxzkb6ju69OT8Z+j7h9OWbIJg+bm+Wtp2C6ihY30wfxjOVmde7ei nG1v8yB7h2K4x2+nY97L8xJS135u4AidwfMp5Nh+N8 [file] [id number]== ID Date Data Source [id number] 03/01/2019 12:28:59 AM [facility] XR ABDOMEN AP SUPINE AND LATERAL VIEW [id number] 019FINAL RESULTInterpreted by:Kalen Olivier MDPROCEDURE INFORMATION: Exam: XR Abdomen, 2 Views Exam date and time: 02/28/2019 11:52 PM Age: 28 years old Clinical indication: Illness, unspecified; Device placement; Non-vascular device; Other: Dog Hair Clipper shunt; Patient HX: PT C/O left side pain TECHNIQUE: Imaging protocol: XR of the abdomen. Frontal supine and upright views of the abdomen. Views: 2 Views. COMPARISON: CR XR ABDOMEN AP SUPINE AND LATERAL VIEW [id number] 10/16/2018 1:48 AM FINDINGS: Gastrointestinal tract: Normal. No bowel dilation. Intraperitoneal space: Normal. No free air. Bones/joints: Unremarkable for age. Intact bilateral ventriculoperitoneal shunt tubes extending into the abdominal peritoneum. Comparison to prior examination these tubes have similar appearance.IMPRESSION: No acute findings. Intact GLASS FURNACE TENDER shunt tubes extending into the abdominal peritoneumTHIS DOCUMENT HAS BEEN ELECTRONICALLY SIGNED BY KALEN OLIVIER MDThis document has been electronically signed by Kalen Olivier MD on 03/01/2019 12:28 AM Name Value Range Interpretation Code Description Data Shelbi rce(s) Supporting Document(s) ID Date Data Source [id number] 03/01/2019 12:28:19 AM [facility] XR CHEST FRONTAL AND LATERAL [id number] RESULTInterpreted by:CAROLIN JulianROCEDURE INFORMATION: Exam: XR Chest, 2 Views Exam date and time: 02/28/2019 11:52 PM Age: 28 years old Clinical indication: Illness, unspecified; Device placement; Other: Dog Hair Clipper shunt; Patient HX: PT C/O left side pain TECHNIQUE: Imaging protocol: XR of the chest Views: 2 views. COMPARISON: No relevant prior studies available. FINDINGS: Lungs: Unremarkable. No consolidation. Pleural space: Unremarkable. No pleural effusion. No pneumothorax. Heart/Mediastinum: Unremarkable. No cardiomegaly. Bones/joints: Unremarkable. Bilateral intact ventricular peritoneal shunt tubes are in place extending into the abdomenIMPRESSION: No acute findings. Intact bilateral GLASS FURNACE TENDER shunt tubesTHIS DOCUMENT HAS BEEN ELECTRONICALLY SIGNED BY KALEN OLIVIER MDThis document has been electronically signed by Kalen Olivier MD on 03/01/2019 12:28 AM Name Value Range Interpretation Code Description Data [facility] rce(s) Supporting Document(s) ID Date Data Source [id number] 03/01/2019 12:26:44 AM [facility] XR SKULL LIMITED [id number] RESULTInterp reted by:CAROLIN JulianROCEDRIVAS INFORMATION: Exam: XR Skull, Less Than 4 Views Exam date and time: 02/28/2019 11:52 PM Age: 28 years old Clinical indication: Illness, unspecified; Device placement; Cerebral fluid drainiage device or shunt; Patient HX: PT C/O pain on left side of head; Additional info: Dog Hair Clipper shunt TECHNIQUE: Imaging protocol: XR of the skull, less than 4 views. COMPARISON: CR XR SKULL LIMITED [id number] 10/16/2018 1:48 AM FINDINGS: Sinuses: Well aerated. [...] rce(s) Supporting Document(s) ID Date Data Source [id number] 03/06/2019 10:53:45 AM [facility] Service Cmnt XXX-Imp : Specimen source n ot given.Microorganism XXX Cult : No growth (qualifier value) Name Value Range Interpretation Code Description Data Shelbi rce(s) Supporting Document(s) ID Date Data Source [id number] 03/06/2019 10:53:45 AM [facility] Service Cmnt XXX-Imp : Specimen source n ot given.Microorganism XXX Cult : No growth (qualifier value) Name Value Range Interpretation Code Description Data Shelbi rce(s) Supporting Document(s) ID Date Data Source [id number] 02/28/2019 11:24:02 PM [facility] Value Range Interpretation Code Description Data Shelbi rce(s) Supporting Document(s) Choriogonadotropin.beta subunit free [Units/volume] in Serum or Plasm a <5 [facility] (NOTE)Levels between 5 and 25 [IU]/L may indicate earlypregnancy and should be repeated after 48 hours. ID Date Data Source [id number] 02/28/2019 11:15:19 PM [facility] Name Value Range Interpretation Code Description Data Shelbi rce(s) Supporting Document(s) C reactive protein [Mass/volume] in Serum or Plasma <8.0 [facility] ID Date Data Source [id number] 02/28/2019 11:25:08 PM [facility] Name Value Range Interpretation Code Description Data Shelbi rce(s) Supporting Document(s) Erythrocyte sedimentation rate 21 mm/hr <20 H [facility] ID Date Data Source [id number] 02/28/2019 11:26:17 PM [facility] Value Range Interpretation Code Description Data Shelbi rce(s) Supporting Document(s) Leukocytes [#/volume] in Blood by Automated count 11.4 10*3/uL 4-10 H [facility] Erythrocytes [#/volume] in Blood by Automated count 4.71 10*6/uL 4.1- 5.3 [facility] Hemoglobin [Mass/volume] in Blood 14.0 g/dL 11.5-15.5 [facility] Hematocrit [Volume Fraction] of Blood by Automated count 42.4 % 3 6-45 [facility] Erythrocyte mean corpuscular volume [Entitic volume] by Auto mated count 90.2 fL 80-96 [facility] Erythrocyte mean corpuscular hemoglobin [Entitic mass] by Automated count 29.8 pg 27-33 [facility] Erythrocyte mean corpuscular hemoglobin concentration [Mass/volume] by Automated count 33.1 g/dL 32.0-36.0 [facility] distribution width [Ratio] by Automated count 14.0 % 11.5-14.5 [facility] Platelets [#/volume] in Blood by Automated count 360 10*3/uL 150-400 [facility] Differential cell count method - Blood [facility] Neutrophils/100 leukocytes in Blood by Automated count 66 % [facility] Lymphocytes/100 leukocytes in Blood by Automated count 23 % [facility] Monocytes/100 leukocytes in Blood by Automated count 9 % [facility] Eosinophils/100 leukocytes in Blood by Automated count 1 % [facility] Basophils/100 leukocytes in Blood by Automated count 1 % [facility] Neutrophils [#/volume] in Blood by Automated count 7.66 10*3/uL 1.8-7 .0 H [facility] Lymphocytes [#/volume] in Blood by Automated count 2.62 10*3/uL 1.2-4 .0 [facility] Monocytes [#/volume] in Blood by Automated count 0.98 10*3/uL 0-0.8 H [facility] Eosinophils [#/volume] in Blood by Automated count 0.12 10*3/uL 0-0.5 [facility] Basophils [#/volume] in Blood by Automated count 0.08 10*3/uL 0-0.2 [facility] Nucleated erythrocytes/100 leukocytes [Ratio] in Blood by Automated count 0 /100{WBCs} 0-0 [facility] ID Date Data Source [id number] 02/28/2019 11:50:20 PM [facility] Name Value Range Interpretation Code Description Data Shelbi rce(s) Supporting Document(s) Bicarbonate [Moles/volume] in Serum 20 mmol/L 22-29 L [facility] Chloride [Moles/volume] in Serum or Plasma 101 mmol/L 98-107 [facility] Creatinine [Mass/volume] in Serum or Plasma 0.64 mg/dL 0.50-0.90 [facility] Glucose [Mass/volume] in Serum or Plasma 88 mg/dL 70-140 [facility] Potassium [Moles/volume] in Serum or Plasma 3.5 mmol/L 3.4-5.1 [facility] Sodium [Moles/volume] in Serum or Plasma 138 mmol/L 136-145 [facility] Urea nitrogen [Mass/volume] in Serum or Plasma 17 mg/dL 6-20 [facility] Anion gap 3 in Serum or Plasma 17 mmol/L 8-15 H [facility] Osmolality of Serum or Plasma by calculation 287 mosm/kg 275-300 [facility] Creatinine/Urea nitrogen [Mass Ratio] in Serum or Plasma 27 [facility] Calcium [Mass/volume] in Serum or Plasma 9.2 mg/dL 8.6-10.0 [facility] Glomerular filtration rate/1.73 sq M pre dicted among non-blacks [Volume Rate/Area] in Serum or Plasma by Creatinine-based formula (MDRD) >6 0 [facility] Glomerular filtration rate/1.73 sq M pre dicted among blacks [Volume Rate/Area] in Serum or Plasma by Creatinine-based formula (MDRD) >60 [facility] ID Date Data Source [id number] 02/28/2019 11:50:20 PM [facility] Name Value Range Interpretation Code Description Data Shelbi rce(s) Supporting Document(s) C reactive protein [Mass/volume] in Serum or Plasma 5.5 mg/L <8.0 [facility] ID Date Data Source [id number] 03/01/2019 03:59:07 AM [facility] Name Value Range Interpretation Code Description Data Shelbi rce(s) Supporting Document(s) Thyrotropin [Units/volume] in Serum or Plasma 3.190 u[IU]/mL 0.270-4. 200 [facility] ID Date Data Source [id number] 02/28/2019 08:12:00 PM EST [facility] Patient: NIMA DIAZ Observation Re port - Physicians/[facility], [facility].VisitID: [id number] [place] [address] [phone], FRegistration Date/Time: 02/28/2019 15:26 Weight:108.8 kg (S). Height/Length:62 inches (S). BMI:43.9 FAMILY HISTORYNo significant family medical history. (Electronically signed by Austin Davidson PA 02/28/2019 18:42) Name Value Range Interpretation Code Description Data [facility](s) Supporting Document(s) ID Date Data Source [id number] 02/28/2019 05:26:00 PM EST [facility] [...] Name Value Range Interpretation Code Description Data [facility] ID Date Data Source [id number] 02/28/2019 05:32:00 PM EST [facility] [id number] Name Value Range Interpretation Code Description Data [facility](s) Supporting Document(s) GLUCOSE 99 mg/dL 74-106 [facility] BLOOD UREA NITROGEN 17 mg/dL 7-18 [facility] ital CREATININE 0.7 mg/dL 0.6-1.0 [facility] SODIUM 140 mmol/L 136-145 [facility] POTASSIUM 3.8 mmol/L 3.5-5.1 [facility] CHLORIDE 102 mmol/L 98-107 [facility] CO2 23 mmol/L 21-32 [facility] CALCIUM 9.7 mg/dL 8.5-10.1 [facility] ANION GAP 15.0 mmol/L 5-12 [facility] GLOMERULAR FILTRATION RATE >90 mL/min [facility] GFR IS CALCULATED IN mL/min/1.73m2 JESICA L FUNCTION: >90MILDLY DECREASED: 60-89MILDY TO MODERATELY DECREASED: 45-59 MODERATELY TO SEVERELY DECREASED: 30-44SEVERELY DECREASED: 15-29RENAL FAILURE: <15 AST 39 U/L 15-37 H [facility] ALT 71 U/L 12-78 [facility] ALKALINE PHOSPHATASE 89 U/L 46-116 [facility] TOTAL BILIRUBIN 0.3 mg/dL 0.2-1.0 [facility] TOTAL PROTEIN 7.9 g/dl 6.4-8.2 [facility] ALBUMIN 4.1 gm/dL 3.4-5.0 [facility] ID Date Data Source [id number] 02/28/2019 05:19:00 PM [facility] TSYSORDER [id number] Name Value Range Interpretation Code Description Data Shelbi rce(s) Supporting Document(s) WHITE BLOOD COUNT 11.1 K/mm3 4.0-10.0 H [facility] tuyet RED BLOOD COUNT 4.81 M/mm3 4.00-5.50 [facility] HEMOGLOBIN 14.0 gm/dL 12.0-16.0 [facility] HEMATOCRIT 42.7 % 36.0-48.8 [facility] MEAN CELL VOLUME 88.8 fl 80-96 [facility] MEAN CORPUSCULAR HEMOGLOBIN 29.1 pg 27.0-31.0 [facility] MEAN CORPUSCULAR HGB CONC 32.8 g/dl 32.0-36.0 [facility] RED CELL DISTRIBUTION WIDTH 12.8 % 10.0-14.5 [facility] PLATELET COUNT 371 K/mm3 172-450 [facility] MEAN PLATELET VOLUME 9.7 fl 9.0-13.0 [facility] pital GRAN % 75.3 % 50-80.0 [facility] IG% 0.2 % 0.0-0.2 [facility] LYMPH % 16.4 % 25.0-50.0 L [facility] MONO % 6.7 % 2.0-10.0 [facility] EOS % 1.0 % 0-5.0 [facility] BASO % 0.4 % 0.0-2.0 [facility] GRAN # 8.4 K/mm3 2.0-8.00 H [facility] IG# 0.0 K/mm3 0.0-0.2 [facility] LYMPH # 1.8 K/mm3 1.0-5.0 [facility] MONO # 0.7 K/mm3 0.10-1.20 [facility] EOS # 0.1 K/mm3 0.0-0.5 [facility] BASO # 0.0 K/mm3 0.0-0.2 [facility] Procedure Social History Code Duration Value Status Description Data Source(s ) 04/04/2020 09:49:37 PM EST No completed No [facility] 04/04/2020 09:49:37 PM EST Yes completed Yes [facility] 04/04/2020 09:49:37 PM EST Never smoker completed Never [facility] Smoking 04/04/2020 09:49:00 PM EST Never smoker completed Never [facility] Alcohol intake 09/11/2019 12:00:00 AM EDT Current drinker of al cohol (finding) completed Current drinker of alcohol (finding) [facility] Tobacco use and exposure 09/11/2019 12:00:00 AM EDT Never used co mpleted Never used [facility] Smoking 09/11/2019 12:00:00 AM EDT Never smoker completed Never [facility] Smoking 09/11/2019 12:00:00 AM EDT Never smoker completed Never [facility] Alcohol intake 09/04/2019 12:00:00 AM EDT Current drinker of al cohol (finding) completed Current drinker of alcohol (finding) [facility] Smoking 09/04/2019 12:00:00 AM EDT Never smoker completed Never [facility] Smoking 09/03/2019 12:00:00 AM EDT Patient has never smoked co mpleted Patient has never smoked [facility] ([facility] Alcohol intake 08/31/2019 12:00:00 AM EDT Current drinker of al cohol (finding) completed Current drinker of alcohol (finding) [facility] Smoking 08/31/2019 12:00:00 AM EDT Never smoker completed Never [facility] Alcohol intake 08/29/2019 12:00:00 AM EDT Current drinker of al cohol (finding) completed Current drinker of alcohol (finding) [facility] Smoking 08/29/2019 12:00:00 AM EDT Never smoker completed Never s [facility] Alcohol intake 07/22/2019 12:00:00 AM EDT Current drinker of al cohol (finding) completed Current drinker of alcohol (finding) [facility] Smoking 07/22/2019 12:00:00 AM EDT Never smoker completed Never s [facility] Alcohol intake 04/08/2019 12:00:00 AM EST Current drinker of al cohol (finding) completed Current drinker of alcohol (finding) [facility] Smoking 04/08/2019 12:00:00 AM EST Never smoker completed Never s [facility] Alcohol intake 02/28/2019 12:00:00 AM EST Current drinker of al cohol (finding) completed Current drinker of alcohol (finding) [facility] Smoking 02/28/2019 12:00:00 AM EST Never smoker completed Never s [facility] Vital Signs ID Date Data Source UNK Name Value Range Interpretation Code Description Data Source(s) Body surface area Derived from formula 2.05 m2 2.05 m2 [facility] ([facility]) Body mass index (BMI) [Ratio] 43.4 kg/m2 43.4 k g/m2 [facility] ([facility]) Body height 62 [in_i] 62 [in_i] [facility] ([facility]) 5'2" Body weight 107.532 kg 107.532 kg [facility] ([facility]) Body weight 237.06 [lb_av] 237.06 [lb_av] [facility] ([facility]) Oxygen saturation in Arterial blood by Pulse oximetry 99 % 99 % [facility] ([facility]) Respiratory rate 18 /min 18 /min [facility] ( [facility]) Body temperature 98.1 [degF] 98.1 [degF] [facility] ([facility]) Heart rate 118 /min 118 /min [facility] ([facility]) Diastolic blood pressure 89 mm[Hg] 89 mm[Hg] [facility] ([facility]) Systolic blood pressure 136 mm[Hg] 136 mm[Hg] [facility]) Oxygen saturation in Arterial blood by Pulse oximetry 99 % 99 % [facility] ([facility]) Body mass index (BMI) [Ratio] 43.5 kg/m2 43.5 k g/m2 [facility] ([facility]) Body weight 241.50 [lb_av] 241.50 [lb_av] [facility] ([facility]) Body height 62.5 [in_i] 62.5 [in_i] [facility] ([facility]) 5'2.50" Heart rate 97 /min 97 /min [facility] ([facility]) Diastolic blood pressure 74 mm[Hg] 74 mm[Hg] [facility] ([facility]) Systolic blood pressure 122 mm[Hg] 122 mm[Hg] [facility] ([facility]) Oxygen saturation in Arterial blood by Pulse oximetry 97 % 97 % [facility] ([facility]) Body mass index (BMI) [Ratio] 43.1 kg/m2 43.1 k g/m2 [facility] ([facility]) Body weight 239.50 [lb_av] 239.50 [lb_av] [facility] ([facility]) Body height 62.5 [in_i] 62.5 [in_i] [facility] ([facility]) 5'2.50" Heart rate 143 /min 143 /min [facility] ([facility]) Diastolic blood pressure 92 mm[Hg] 92 mm[Hg] [facility] ([facility]) Systolic blood pressure 140 mm[Hg] 140 mm[Hg] [facility] ([facility]) ID Date Data Source [id number] 02/25/2020 12:27:59 PM [facility] Name Value Range Interpretation Code Description Data Source(s) WEIGHT RECORDED 233.00 pounds 233.00 pounds [facility] Height 62 Inches 062 Inches [facility] ID Date Data Source [id number] 12/25/2019 02:57:38 PM EDT [facility] Name Value Range Interpretation Code Description Data Source(s) TRANSFER FROM [facility] ID Date Data Source [id number] 08/29/2019 10:58:03 AM EDT [facility] Hospital Name Value Range Interpretation Code Description Data Source(s) WEIGHT RECORDED [address] [facility] Body height Measured 62 in 62 in [facility] ID Date Data Source [id number] 08/03/2019 09:04:51 PM [facility] Name Value Range Interpretation Code Description Data Source(s) WEIGHT RECORDED [address] [facility] Body height Measured 62 in 62 in [facility] ID Date Data Source [id number] 04/16/2019 11:51:47 AM [facility] Name Value Range Interpretation Code Description Data Source(s) WEIGHT RECORDED [address] [facility] Body height Measured 64 in 64 in [facility] Patient Treatment Plan of Care Planned Activity Planned Date Details Description Data Source (s) Oxycodone Hydrochloride 10 MG Oral Tablet 02/19/2020 12:00:00 AM [facility] Oxycodone Hydrochloride 10 MG Oral Tablet 01/26/2020 12:00:00 AM [facility] tizanidine 4 MG Oral Capsule 12/22/2019 12:00:00 AM [facility] Hyoscyamine Sulfate 0.125 MG Oral Tablet 12/22/2019 12:00:00 AM [facility] Baclofen 10 MG Oral Tablet 12/22/2019 12:00:00 AM [facility] Cyclobenzaprine hydrochloride 10 MG Oral Tablet 12/22/2019 12:00:00 AM [facility] Ondansetron 8 MG Disintegrating Oral Tablet 12/22/2019 12:00:00 AM [facility] Oxycodone Hydrochloride 10 MG Oral Tablet 12/22/2019 12:00:00 AM [facility] Hyoscyamine Sulfate 0.125 MG Oral Tablet 12/08/2019 12:00:00 AM [facility] Ondansetron 4 MG Disintegrating Oral Tablet 12/04/2019 12:00:00 AM [facility] Oxycodone Hydrochloride 10 MG Oral Tablet 11/25/2019 12:00:00 AM [facility] Ondansetron 8 MG Disintegrating Oral Tablet 11/24/2019 12:00:00 AM [facility] Baclofen 10 MG Oral Tablet 11/24/2019 12:00:00 AM [facility] Oxycodone Hydrochloride 10 MG Oral Tablet 11/24/2019 12:00:00 AM [facility] Hyoscyamine Sulfate 0.125 MG Oral Tablet 11/17/2019 12:00:00 AM [facility] Acetaminophen 325 MG / Hydrocodone Bitartrate 5 MG Ora l Tablet 11/17/2019 12:00:00 AM [facility] Naltrexone hydrochloride 50 MG Oral Tablet 11/12/2019 12:00:00 AM E [facility] gabapentin 600 MG Oral Tablet 11/12/2019 12:00:00 AM [facility] Trazodone Hydrochloride 100 MG Oral Tablet 11/12/2019 12:00:00 AM E [facility] Clonidine Hydrochloride 0.1 MG Oral Tablet 11/12/2019 12:00:00 AM E [facility] olanzapine 10 MG Oral Tablet 11/12/2019 12:00:00 AM [facility] Metoclopramide 10 MG Oral Tablet 11/12/2019 12:00:00 AM [facility] Hyoscyamine Sulfate 0.125 MG Sublingual Tablet 11/12/2019 12:00:00 AM [facility] Buprenorphine 8 MG Sublingual Tablet 11/12/2019 12:00:00 AM [facility] Oxycodone Hydrochloride 10 MG Oral Tablet 11/12/2019 12:00:00 AM [facility] Hyoscyamine Sulfate 0.125 MG Oral Tablet 09/11/2019 12:00:00 AM [facility] tizanidine 4 MG Oral Tablet 09/11/2019 12:00:00 AM [facility] Acetaminophen 325 MG / Hydrocodone Bitartrate 5 MG Ora l Tablet 09/11/2019 12:00:00 AM [facility] tizanidine 4 MG Oral Tablet 09/04/2019 12:00:00 AM [facility] Hyoscyamine Sulfate 0.125 MG Oral Tablet 09/04/2019 12:00:00 AM [facility] Acetaminophen 300 MG / Hydrocodone Bitartrate 5 MG Ora l Tablet 09/04/2019 12:00:00 AM [facility] Acetaminophen 300 MG / Hydrocodone Bitartrate 5 MG Ora l Tablet 08/29/2019 12:00:00 AM [facility] Trazodone Hydrochloride 100 MG Oral Tablet 08/27/2019 12:00:00 AM E DT [facility] Diclofenac Sodium 75 MG Delayed Release Oral Tablet 08/27/19 12:00:00 AM [facility] sennosides, MCC 8.6 MG Oral Tablet 07/23/2019 12:00:00 AM [facility] Acetaminophen 325 MG / Hydrocodone Bitartrate 5 MG Ora l Tablet 07/23/2019 12:00:00 AM [facility] sennosides, MCC 8.6 MG Oral Tablet 07/22/2019 10:00:00 PM [facility] ondansetron (ZOFRAN) injection 4 mg 07/22/2019 01:00:00 PM [facility] Acetaminophen 325 MG / Hydrocodone Bitartrate 5 MG Ora l Tablet 04/08/2019 12:00:00 AM [facility] Ondansetron 4 MG Disintegrating Oral Tablet 03/01/2019 12:00:00 AM [facility] Acetaminophen 325 MG / Oxycodone Hydrochloride 5 MG Or al Tablet 08/27/2017 12:00:00 AM [facility] tramadol hydrochloride 50 MG Oral Tablet [facility] Ondansetron 4 MG Disintegrating Oral Tablet [facility] Cyclobenzaprine hydrochloride 10 MG Oral Tablet [facility] buspirone hydrochloride 5 MG Oral Tablet [facility] Metoclopramide 10 MG Oral Tablet [facility] tizanidine 4 MG Oral Tablet [facility] tizanidine 4 MG Oral Tablet [facility] 24 HR Metformin hydrochloride 750 MG Extended Release Oral Tablet [facility]
[2020-04-20] MEDS: MORPHINE 4 MG/ML 1ML VIAL/SYRINGE (J2270) IV PRN ×2 (03:25→05:49)
[2020-04-20] MEDS ORDERED: ISOVUE-370 76% 100ML VIAL As Ordered ONE (03:32)
--- NOTE | 2020-04-20 04:59 | REPVR ---
PROCEDURE INFORMATION: Exam: CT Abdomen And Pelvis With Contrast Exam date and time: 04/20/2020 3:43 AM Age: 29 years old Clinical indication: Abdominal pain; Generalized; Additional info: Generalized abd pain TECHNIQUE: Imaging protocol: Computed tomography of the abdomen and pelvis with contrast. Radiation optimization: All CT scans at this facility use at least one of these dose optimization techniques: automated exposure control; mA and/or kV adjustment per patient size (includes targeted exams where dose is matched to clinical indication); or iterative reconstruction. Contrast material: ISOVUE 370; Contrast volume: 100 ml; Contrast route: INTRAVENOUS (IV); COMPARISON: CT ABD/PEL W/IV ORAL CONTRAS 07/23/2018 7:50 PM FINDINGS: Lungs: Mild dependent and basilar atelectasis. No consolidation. Liver: Diffuse fatty infiltration of the liver as well as focal fatty infiltration adjacent to the falciform ligament. Gallbladder and bile ducts: Status post cholecystectomy. Pancreas: Unremarkable. No ductal dilatation. Spleen: Unremarkable. No splenomegaly. Adrenal glands: Unremarkable. No mass. Kidneys and ureters: Symmetric nephrograms. No hydronephrosis or mass. Stomach and bowel: No obstruction. No mucosal thickening. Appendix: Appendix is not visualized. Intraperitoneal space: Shunt tubing extends along the anterior abdominal wall and enters the right lower quadrant, loops within the pelvis and extends cephalad with its tip in the left mid abdomen. Old shunt tubing is also noted along the posteroinferior margin of the liver. Trace free fluid within the pelvis, likely physiologic. No significant free fluid or loculated fluid collections. No free air. Vasculature: Unremarkable. No abdominal aortic aneurysm. Lymph nodes: Small mesenteric lymph nodes. No significant adenopathy. Urinary bladder: Decompressed urinary bladder. Reproductive: Unremarkable as visualized. Bones/joints: Bones are intact. No acute fracture. Soft tissues: Unremarkable. IMPRESSION: 1. No acute abnormalities are identified. 2. Intraperitoneal shunt. No significant free fluid or loculated fluid collections. 3. Fatty infiltration of the liver. 4. Status post cholecystectomy. Electronically signed by: Deondre Delong On 04/20/2020 04:59:39 AM
[2020-04-20] MEDS ORDERED: SUCRALFATE 1 GM TAB PO ONE (05:45)
[2020-04-20] MEDS ORDERED: PANTOPRAZOLE 40MG VIAL (C9113 PER 1) IV ONE (05:45)
[2020-04-20 06:46] VITALS: BP 133/70
[2020-04-20] MEDS ORDERED: OMEP40CA97 PO (07:06)
[2020-04-20] MEDS ORDERED: CARA1TAB6 PO (07:06)
[2020-04-20] MEDS ORDERED: PEPC1TAB5 PO (07:06)
== END 2020-04-20 07:22 | disposition home or self-care (01) ==
LOC: M ED 23:45
DX: R10.13 Epigastric pain (principal); R11.2 Nausea with vomiting, unspecified; Z79.899 Other long term (current) drug therapy; Z88.1 Allergy status to other antibiotic agents; Z88.2 Allergy status to sulfonamides; Z88.8 Allergy status to other drugs, medicaments and biological substances
CPT/HCPCS: 74177; 80048; 80076; 81001; 83690; 84702; 85025; 85610; 85730; 86850; 86900; 86901; 96374; 96375; 96376; 99284; C9113; J2270; J2405; Q9967

== ENCOUNTER → 2020-05-21 | Outpatient (CLI) | payer OTHER ==
[~2020-05-21] MED LIST changes: -AMIT10TA; +AMIT10TA7; +CARA1TAB6 PO; +OMEP40CA97 PO; +PEPC1TAB5 PO; +PROHANCE 279.3MG/ML 15ML VIAL As Ordered ONE; +PROHANCE 279.3MG/ML 5ML VIAL As Ordered ONE
--- NOTE | 2020-05-21 18:30 | REP ---
INDICATION: PRANEETH BREAST MASS BLOODY DISCHARGE NIPPLE. COMPARISON: Comparison mammography and targeted sonography April 15, 2020. TECHNIQUE: Three Anai MRI imaging was performed with a dedicated breast coil. Axial, coronal, and sagittal T1 and T2 weighted scans were obtained with and without fat saturation in the usual fashion. The study includes dynamically acquired post gadolinium-enhanced imaging with image subtraction. Maximum intensity projection and multi planar reformation imaging is included as well. This study is interpreted with the aid of [employer], an FDA approved computer aided detection (CAD) software program, on a dedicated breast MRI workstation. The gadolinium enhancement dose is 20 mL of intravenous ProHance. FINDINGS: There is a minimal amount of fibroglandular tissue bilaterally corresponding with the mammographic pattern. There is minimal background parenchymal enhancement. There is no evidence of axillary lymphadenopathy or significant breast cystic change. High-resolution pre and post-contrast T1 and T2 weighted scans show no suspicious morphologic abnormality in either breast. Dynamically acquired sequential postcontrast images show no suspicious area of enhancement and washout kinetics in either breast to suggest malignancy. Subtraction images show no additional abnormality. Initial fat saturation images show asymmetric fat saturation with failure regarding the left breast. This does not affect tissue radial resolution or overall exam quality. Fat saturation was achieved homogeneously on subsequent sequences. T2 weighted scans show no evidence of a ductal prominence or retro Jordy are morphologic abnormality. IMPRESSION: BI-RADS category 1 negative bilateral breast MRI findings. <Electronically signed by Marlo Birmingham > 05/21/20 [id number]
== END ==
LOC: M RAD 14:32
PROVIDERS: ATTEND Surgery
DX: N63.20 Unspecified lump in the left breast, unspecified quadrant (principal); N63.10 Unspecified lump in the right breast, unspecified quadrant; N64.52 Nipple discharge; N64.4 Mastodynia
CPT/HCPCS: A9576; C8908

== ENCOUNTER 2020-10-25 21:41 | Emergency (ER) | payer OTHER ==
[~2020-10-25] VITALS: Ht 157.5 cm; Wt 105.2 kg
[~2020-10-25 21:41] MED LIST changes: -CLIN150C15 PO; +CLIN150C17 PO; +GABA-283 PO; -GABA-845 PO; +OMEP40CA4 PO; -OMEP40CA97 PO; -PROHANCE 279.3MG/ML 15ML VIAL As Ordered ONE; -PROHANCE 279.3MG/ML 5ML VIAL As Ordered ONE
[2020-10-25] MEDS ORDERED: OXYC-517 PO (21:59)
[2020-10-25] MEDS ORDERED: METH-1164 PO (21:59)
[2020-10-25] MEDS ORDERED: VENL75TA2 PO (21:59)
[2020-10-25] MEDS ORDERED: TRAZ-257 PO (21:59)
[2020-10-25] MEDS ORDERED: BUSP5TA PO (21:59)
[2020-10-25] MEDS ORDERED: CABE0.5T PO (21:59)
--- NOTE | 2020-10-25 23:22 | REPVR ---
PROCEDURE INFORMATION: Exam: CT Head without Contrast Exam date and time: 10/25/20 (10:26pm) Age: 30 years old Clinical indication: Headache TECHNIQUE: Imaging protocol: Computed tomography of the head without contrast Radiation optimization: All CT scans at this facility use at least one of these dose optimization techniques: automated exposure control; mA and/or kV adjustment per patient size (includes targeted exams where dose is matched to clinical indication); or iterative reconstruction. COMPARISON: MRI BRAIN of 02/10/20 FINDINGS: Right-sided V-P shunt catheter noted, with its tip in stable position. Small, nondilated ventricular system, perhaps 'slit-like' in appearance. Catheter enters via a high right frontal approach. No acute hemorrhage. No mass effect. No midline shift. No evidence of cerebral edema. No mass lesion. IMPRESSION: Right-sided V-P shunt catheter, in stable position. Nondilated ventricular system, perhaps 'slit-like' in appearance. Clinical correlation is suggested. No acute hemorrhage. See additional comments above. Electronically signed by: Kaye Judge On 10/25/2020 23:22:21 PM
--- NOTE | 2020-10-25 23:28 | REPVR ---
PROCEDURE INFORMATION: Exam: XR Shunt Series with 4 XR Procedures Exam date and time: 10/25/20 (10:21pm) Age: 30 years old Clinical indication: Abdominal pain. Neck pain. Headache. Additional info: Shunt headache. TECHNIQUE: Imaging protocol: XR Shunt Series was performed with skull less than 4 views, neck 1 view, chest 1 view, and abdomen 1 view COMPARISON: MRI BRAIN of 02/10/20 FINDINGS: Tubes, catheters and devices: Right-sided V-P catheter is present. The catheter is seen coursing through the neck and chest. The distal catheter tip projects over the left mid pelvis. No kinking. No breakage. Sinuses: Visualized paranasal sinuses are well aerated. Airway: Upper airway and trachea are unremarkable in the neck and chest. Lungs: Streaky and slightly patchy right lung opacities. No pleural effusions. The left lung base is difficult to evaluate due to overlying heart shadow. Gastrointestinal tract: Bowel is unremarkable. Bones/joints: Unremarkable. No fracture nor dislocation. Other findings: S/P cholecystectomy. IMPRESSION: V-P shunt in satisfactory position as described. Possible right-sided pneumonia. Streaky and patchy right lung opacities are noted. Needs correlation. S/P cholecystectomy. Electronically signed by: Kaye Judge On 10/25/2020 23:28:12 PM
[2020-10-25] MEDS ORDERED: NS 1,000 ML IV ONE (23:50)
[2020-10-25] MEDS ORDERED: PROMETHAZINE INJ 25 MG/ML VIAL (J2550) IV ONE (23:50)
[2020-10-26 00:40] LABS: BASO # 0.1 10^3/uL (0.0-0.2); BASO % 0.7 % (0.0-1.0); EOS # 0.2 10^3/uL (0.0-0.5); EOS % 1.7 % (0.0-3.0); HEMATOCRIT 44.1 % (36.0-47.0); HEMOGLOBIN 14.5 g/dl (12.0-15.5); LYMPH # 2.7 10^3/uL (1.5-5.0); LYMPH % 25.5 % (24.0-44.0); MEAN CORPUSCULAR HEMOGLOBIN 32.2 pg (27.0-33.0); MEAN CORPUSCULAR HGB CONC 32.9 g/dl (32.0-36.5); MONO # 0.6 10^3/uL (0.0-0.8); NEUTROPHILS # 6.9 10^3/uL (1.5-8.5); NEUTROPHILS % 65.7 % (36.0-66.0); PLATELET COUNT, AUTOMATED 411 10^3/uL (150-450); WHITE BLOOD COUNT 10.5 10^3/uL (4.0-10.0)
--- NOTE | 2020-10-26 01:05 | REPVR ---
PROCEDURE INFORMATION: Exam: XR Chest Exam date and time: 10/26/2020 12:40 AM Age: 30 years old Clinical indication: Fever; Additional info: malaise, question on shunt series TECHNIQUE: Imaging protocol: XR of the chest. Views: 2 views. COMPARISON: CR SHUNT SERIES 10/25/2020 10:10 PM FINDINGS: Tubes, catheters and devices: A right-sided ventriculoperitoneal shunt catheter was partially imaged. Lungs: The streaky and patchy right lung opacities described in the shunt series on 10/25/2020 are not present in the current examination and likely represent atelectasis in the prior study due to low lung volumes. No lung consolidation or pulmonary edema is noted in the current examination. Pleural spaces: Unremarkable. No pleural effusion. No pneumothorax. Heart/Mediastinum: Unremarkable. No cardiomegaly. Bones/joints: Unremarkable. Organs: There are surgical clips in the right upper quadrant of the abdomen related to a cholecystectomy. IMPRESSION: No acute findings. Electronically signed by: Charlie Bains On 10/26/2020 01:05:20 AM
[2020-10-26] MEDS: HYDROMORPHONE HCL 0.5 MG/ 0.5 ML SYRINGE (J1170 PER 1) IV PRN ×4 (01:14→06:33)
[2020-10-26 01:18] LABS: RSV AMPLIFICATION NEGATIVE (NEGATIVE)
[2020-10-26 01:25] LABS: ALBUMIN 3.8 GM/DL (3.2-5.2); ALT/SGPT 33 U/L (12-78); BILIRUBIN,DIRECT < 0.1 MG/DL (0.0-0.2); BILIRUBIN,TOTAL 0.2 MG/DL (0.2-1.0); BLOOD UREA NITROGEN 14 MG/DL (7-18); CALCIUM LEVEL 8.5 MG/DL (8.5-10.1); CARBON DIOXIDE LEVEL 20 MEQ/L (21-32); CHLORIDE LEVEL 112 MEQ/L (98-107); CREATININE FOR GFR 0.84 MG/DL (0.55-1.30); GLOMERULAR FILTRATION RATE > 60.0 (>60); GLUCOSE, FASTING 87 MG/DL (70-100); LIPASE 155 U/L (73-393); POTASSIUM SERUM 4.2 MEQ/L (3.5-5.1); SODIUM LEVEL 141 MEQ/L (136-145); TOTAL PROTEIN 7.2 GM/DL (6.4-8.2)
[2020-10-26 02:44] LABS: C REACTIVE PROTEIN QUANTITATIV 0.44 MG/DL (0.00-0.30)
[2020-10-26] MEDS ORDERED: METOCLOPRAMIDE INJ 10MG/2ML VIAL (J2765 PER 1) IV ONE (04:55)
[2020-10-26 07:35] LABS: ERYTHROCYTE SEDIMENTATION RATE 6 mm/hr (0-20)
[2020-10-26] MEDS ORDERED: HYDROMORPHONE HCL 0.5 MG/ 0.5 ML SYRINGE (J1170 PER 1) IV PRN (08:10)
[2020-10-26] MEDS ORDERED: KETAMINE HCL IV ONE (09:00)
[2020-10-26] MEDS ORDERED: NS IV ONE (09:00)
[2020-10-26 09:29] VITALS: BP 126/81
== END 2020-10-26 09:29 | disposition short-term general hospital (02) ==
LOC: M ED 21:41
DX: R51.9 Headache, unspecified (principal); Z98.2 Presence of cerebrospinal fluid drainage device; E11.9 Type 2 diabetes mellitus without complications; G93.2 Benign intracranial hypertension; R91.8 Other nonspecific abnormal finding of lung field
CPT/HCPCS: 70450; 71046; 75809; 80048; 80076; 83690; 85025; 85652; 86140; 87040; 87631; 93041; 96365; 96375; 96376; 99285; J1170; J2765

== ENCOUNTER 2022-02-03 07:04 | Emergency (ER) | payer OTHER ==
[~2022-02-03] VITALS: Ht 157.5 cm; Wt 112.0 kg
[~2022-02-03 07:04] MED LIST changes: +BUSP5TA PO; -DICY20TA11; +DICY20TA20; -IBUP200T45; +IBUP200T46; -MAGN400T3; +MAGN400T33; +METH-1164 PO; +TIZA10TA; -TIZA4TAB4; +TRAZ-257 PO; +VENL75TA2 PO
[2022-02-03] MEDS ORDERED: LITH150C PO (07:23)
[2022-02-03] MEDS ORDERED: ACETAMINOPHEN 1000MG 100ML IV BAG IV ONE (12:25)
[2022-02-03] MEDS ORDERED: ONDANSETRON 4MG 2ML VIAL IV ONE (12:30)
[2022-02-03] MEDS ORDERED: HYDROMORPHONE HCL 0.5 MG/ 0.5 ML SYRINGE (J1170 PER 1) IV ONE ×2 (12:45→16:55)
[2022-02-03 12:47] LABS: BASO # 0.1 10^3/uL (0.0-0.2); BASO % 0.5 % (0.0-1.0); EOS # 0.2 10^3/uL (0.0-0.5); EOS % 1.2 % (0.0-3.0); HEMATOCRIT 42.6 % (36.0-47.0); HEMOGLOBIN 13.3 g/dl (12.0-15.5); LYMPH # 2.4 10^3/uL (1.5-5.0); LYMPH % 18.4 % (24.0-44.0); MEAN CORPUSCULAR HEMOGLOBIN 30.4 pg (27.0-33.0); MEAN CORPUSCULAR HGB CONC 31.2 g/dl (32.0-36.5); MEAN CORPUSCULAR VOLUME 97.5 fl (80.0-96.0); MONO # 0.8 10^3/uL (0.0-0.8); MONO % 6.2 % (2.0-8.0); NEUTROPHILS # 9.5 10^3/uL (1.5-8.5); NEUTROPHILS % 73.2 % (36.0-66.0); PLATELET COUNT, AUTOMATED 428 10^3/uL (150-450); RED BLOOD COUNT 4.37 10^6/uL (4.00-5.40)
[2022-02-03 13:26] LABS: ERYTHROCYTE SEDIMENTATION RATE 21 mm/hr (0-20)
[2022-02-03] MEDS ORDERED: KETOROLAC 30 MG/ML 1ML VIAL IV ONE ×2 (14:15→14:35)
[2022-02-03 14:35] LABS: LITHIUM LEVEL < 1.00 MEQ/L (0.60-1.20)
[2022-02-03] MEDS ORDERED: PROMETHAZINE 25MG/ML 1ML VIAL IV ONE (14:35)
[2022-02-03 14:42] LABS: BLOOD UREA NITROGEN 13 MG/DL (9-23); CALCIUM LEVEL 8.3 MG/DL (8.5-10.1); CARBON DIOXIDE LEVEL 22 MMOL/L (20-31); CHLORIDE LEVEL 104 MMOL/L (98-107); CREATININE FOR GFR 0.62 MG/DL (0.55-1.30); GLOMERULAR FILTRATION RATE > 60.0 (>60); GLUCOSE, FASTING 95 MG/DL (60-100); POTASSIUM SERUM 5.8 MMOL/L (3.5-5.1); SODIUM LEVEL 136 MMOL/L (136-145)
[2022-02-03 15:06] LABS: AMPHETAMINES LEVEL URINE NEGATIVE (NEGATIVE); BARBITURATES URINE NEGATIVE (NEGATIVE); BENZODIAZEPINES URINE NEGATIVE (NEGATIVE); CANNABINOIDS URINE NEGATIVE (NEGATIVE); COCAINE METABOLITE URINE NEGATIVE (NEGATIVE); METHADONE URINE NEGATIVE (NEGATIVE); PHENCYCLIDINE URINE NEGATIVE (NEGATIVE)
[2022-02-03 15:10] LABS: OPIATES URINE POSITIVE (NEGATIVE)
[2022-02-03] MEDS ORDERED: PROM25TA12 PO (18:01)
[2022-02-03 18:32] VITALS: BP 138/72
== END 2022-02-03 18:36 | disposition left against medical advice (07) ==
LOC: M ED 07:04
DX: R51.9 Headache, unspecified (principal); H53.9 Unspecified visual disturbance; M43.6 Torticollis; Z53.20 Procedure and treatment not carried out because of patient's decision for unspecified reasons; R50.9 Fever, unspecified; Z98.2 Presence of cerebrospinal fluid drainage device; Z79.84 Long term (current) use of oral hypoglycemic drugs; Z79.899 Other long term (current) drug therapy; Z88.2 Allergy status to sulfonamides; Z88.8 Allergy status to other drugs, medicaments and biological substances; Z86.61 Personal history of infections of the central nervous system
CPT/HCPCS: 70450; 75809; 80048; 80178; 80307; 83605; 84702; 85025; 85652; 86140; 87040; 87486; 87581; 87633; 87798; 96374; 96375; 96376; 99284; J1170; J1885; J2405; J2550

== ENCOUNTER → 2022-04-25 | Outpatient (CLI) | payer OTHER ==
[~2022-04-25] MED LIST changes: +BUPR-71 PO; -FERR325T18; +FERR325T18 PO; +HYOS1TAB PO; +LITH150C PO; +ONDA-83 PO; -VITA500T9; +VITA500T9 PO
== END ==
LOC: M LABSMTC 10:07
PROVIDERS: ATTEND Anesthesiology
DX: Z01.812 Encounter for preprocedural laboratory examination (principal)

== ENCOUNTER 2022-04-27 08:39 | Day surgery (SDC) | payer OTHER ==
[~2022-04-27] VITALS: Ht 157.5 cm; Wt 117.0 kg
[~2022-04-27 08:39] MED LIST changes: +NS 1,000 ML IV ONE
[2022-04-27] MEDS ORDERED: LIDOCAINE 2% 100MG/5ML SDV (FOR ANES.) As Ordered ONE (12:03)
[2022-04-27] MEDS ORDERED: fentaNYL 100 MCG/2 ML INJECTION As Ordered ONE (12:03)
[2022-04-27] MEDS ORDERED: propofoL 200 MG/20 ML VIAL As Ordered ONE ×4 (12:03→12:59)
[2022-04-27] MEDS ORDERED: ESMOLOL INJ 100MG/10ML VIAL As Ordered ONE (12:42)
[2022-04-27] MEDS ORDERED: PHENYLephrine 500MCG 5ML (100MCG/ML) SYRINGE As Ordered ONE (12:54)
[2022-04-27 13:42] VITALS: BP 123/61
== END 2022-04-27 14:13 | disposition home or self-care (01) ==
LOC: M OPP 08:39
PROVIDERS: ATTEND Internal Medicine Gastroenterology
DX: D12.4 Benign neoplasm of descending colon (principal); K63.5 Polyp of colon; K64.4 Residual hemorrhoidal skin tags; K64.8 Other hemorrhoids; K92.0 Hematemesis; K62.5 Hemorrhage of anus and rectum; Z80.0 Family history of malignant neoplasm of digestive organs; D50.9 Iron deficiency anemia, unspecified; K44.9 Diaphragmatic hernia without obstruction or gangrene; K29.70 Gastritis, unspecified, without bleeding; E28.2 Polycystic ovarian syndrome; G91.9 Hydrocephalus, unspecified; F32.9 Major depressive disorder, single episode, unspecified; F41.9 Anxiety disorder, unspecified; Z79.83 Long term (current) use of bisphosphonates; Z79.84 Long term (current) use of oral hypoglycemic drugs; Z79.899 Other long term (current) drug therapy; Z88.2 Allergy status to sulfonamides; Z88.8 Allergy status to other drugs, medicaments and biological substances; Z91.030 Bee allergy status; Z98.2 Presence of cerebrospinal fluid drainage device; Z87.442 Personal history of urinary calculi; Z86.13 Personal history of malaria; Z80.1 Family history of malignant neoplasm of trachea, bronchus and lung
CPT/HCPCS: 43239; 45385; 81025; 88305; J2370; J3010

== ENCOUNTER 2022-12-14 16:34 | Emergency (ER) | payer OTHER ==
[~2022-12-14] VITALS: Ht 157.5 cm; Wt 120.4 kg
[~2022-12-14 16:34] MED LIST changes: -GABA-283 PO; +GABA-284 PO; -NS 1,000 ML IV ONE
[2022-12-14 16:47] VITALS: TEMP 99.6
[2022-12-14 17:27] LABS: BASO # 0.1 10^3/uL (0.0-0.2); BASO % 0.5 % (0.0-1.0); EOS # 0.1 10^3/uL (0.0-0.5); EOS % 0.8 % (0.0-3.0); HEMATOCRIT 43.2 % (36.0-47.0); HEMOGLOBIN 14.1 g/dl (12.0-15.5); LYMPH # 2.8 10^3/uL (1.5-5.0); LYMPH % 22.6 % (24.0-44.0); MEAN CORPUSCULAR HEMOGLOBIN 30.3 pg (27.0-33.0); MEAN CORPUSCULAR HGB CONC 32.6 g/dl (32.0-36.5); MEAN CORPUSCULAR VOLUME 92.7 fl (80.0-96.0); MONO # 0.8 10^3/uL (0.0-0.8); MONO % 6.4 % (2.0-8.0); NEUTROPHILS # 8.7 10^3/uL (1.5-8.5); NEUTROPHILS % 69.1 % (36.0-66.0); PLATELET COUNT, AUTOMATED 477 10^3/uL (150-450); RED BLOOD COUNT 4.66 10^6/uL (4.00-5.40); WHITE BLOOD COUNT 12.5 10^3/uL (4.0-10.0)
[2022-12-14 17:55] LABS: ALKALINE PHOSPHATASE 66 U/L (46-116); ALT/SGPT 17 U/L (7.0-40); AST/SGOT 13 U/L (<34); BILIRUBIN,DIRECT < 0.1 MG/DL (<0.4); BILIRUBIN,TOTAL 0.2 MG/DL (0.3-1.2); BLOOD UREA NITROGEN 14 MG/DL (9-23); CALCIUM LEVEL 9.6 MG/DL (8.5-10.1); CARBON DIOXIDE LEVEL 18 MMOL/L (20-31); CHLORIDE LEVEL 106 MMOL/L (98-107); CREATININE FOR GFR 0.88 MG/DL (0.55-1.30); GLOMERULAR FILTRATION RATE > 60.0 (>60); GLUCOSE, FASTING 101 MG/DL (60-100); POTASSIUM SERUM 4.6 MMOL/L (3.5-5.1); SODIUM LEVEL 137 MMOL/L (136-145); TOTAL PROTEIN 7.8 G/DL (5.7-8.2)
[2022-12-14 18:17] LABS: HCG, SERUM QUALITATIVE NEGATIVE (NEGATIVE)
[2022-12-14 19:32] LABS: GC DNA AMPLIFICATION NEGATIVE (NEGATIVE)
[2022-12-14] MEDS ORDERED: ONDANSETRON 4MG 2ML VIAL IV ONE (19:45)
[2022-12-14] MEDS ORDERED: NS 1,000 ML IV ONE (19:45)
[2022-12-14] MEDS ORDERED: MORPHINE 4 MG/ML 1ML VIAL IV ONE (19:45)
[2022-12-14] MEDS ORDERED: ISOVUE-370 76% 100ML VIAL As Ordered ONE (19:47)
[2022-12-14] MEDS ORDERED: PERC5TAB12 PO (20:53)
[2022-12-14 21:02] VITALS: BP 163/98; O2SAT 99
== END 2022-12-14 21:03 | disposition home or self-care (01) ==
LOC: M ED 16:34
DX: N93.0 Postcoital and contact bleeding (principal); D64.9 Anemia, unspecified; F41.9 Anxiety disorder, unspecified; F32.A Depression, unspecified
CPT/HCPCS: 74177; 80048; 80076; 81001; 84703; 85025; 86850; 86900; 86901; 87086; 87210; 87661; 87810; 87850; 96361; 96374; 96375; 99284; J2405; Q9967

== ENCOUNTER → 2023-10-29 | Outpatient (CLI) | payer OTHER ==
[~2023-10-29] MED LIST changes: +ACET-683 PO; +DIPH50CA PO; +EFFE75CA2 PO; +FERR325T81 PO; +FLUO-365 PO; -FLUO20CA22 PO; +METF850T4 PO; +ONDA-282 PO; -ONDA4TAB6 PO; +PERC5TAB12 PO; +REGL5TAB2 PO
== END ==
LOC: M RAD 07:12
PROVIDERS: ATTEND Physician Assistant
DX: J32.8 Other chronic sinusitis (principal)

== ENCOUNTER → 2024-04-30 | Outpatient (REF) | payer OTHER ==
[~2024-04-30] MED LIST changes: +VANC250C12 PO; -VANC250C3 PO
[2024-04-30 17:56] LABS: APPEARANCE, URINE HAZY (CLEAR); BACTERIA, URINE AUTO 2+ (NEGATIVE); BILIRUBIN, URINE AUTO NEGATIVE (NEGATIVE); BLOOD, URINE BLOOD NEGATIVE (NEGATIVE); COLOR, URINE YELLOW (YELLOW); GLUCOSE, URINE (UA) AUTO NEGATIVE (NEGATIVE); KETONE, URINE AUTO NEGATIVE (NEGATIVE); LEUKOCYTE ESTERASE, URINE AUTO TRACE (NEGATIVE); MUCUS, URINE SMALL (NEGATIVE); NITRITE, URINE AUTO POSITIVE (NEGATIVE); PROTEIN, URINE AUTO NEGATIVE (NEGATIVE); RBC, URINE AUTO 1 /HPF (0-3); SPECIFIC GRAVITY URINE AUTO 1.016 (1.002-1.035); SQUAMOUS EPITHELIAL CELL UR AU 7 /HPF (0-6); UROBILINOGEN, URINE AUTO 0.2 mg/dL (0.0-2.0); WBC, URINE AUTO 13 /HPF (0-3)
== END ==
LOC: M SMT 16:55
PROVIDERS: ATTEND Nurse Practitioner Family
DX: R35.0 Frequency of micturition (principal)